=== PATIENT | female | born 1950 | race Caucasian/White ===

== ENCOUNTER 2016-09-27 15:39 | Inpatient (IN) ==
[2016-09-27] MEDS ORDERED: Ipratropium/Albuterol Neb 3 ML IH ONE (15:52)
--- NOTE | 2016-09-27 16:29 | Emergency Department Note ---
Disposition Clinical Impression: UTI (urinary tract infection) Disposition: Admitted As Inpatient Condition: Good Referrals: Monica Chahal, [employer] [Primary Care Provider] - Forms: ED Satisfaction Letter Time of Disposition: 18:17 General Adult HPI - General Chief complaint: ED Shortness of Breath/Dyspnea Stated complaint: SOB/UTI Time Seen by Provider: 09/27/16 15:43 Source: patient, EMS Limitations: no limitations Nursing Notes Reviewed: Yes Vital Signs Reviewed: Yes - History of Present Illness HPI Narrative: Patient diagnosed yesterday with a UTI and bronchitis. She was prescribed Keflex. States that she is too weak to ambulate throughout her house and take care of herself. She states this began today. She denies any shortness of breath while she is laying in bed. Pain Scale: 9 - Related Data Home Medications Medication Instructions Recorded Confirmed Aspirin 81 mg PO DAILY 07/13/16 07/18/16 Biotin 1,000 mcg PO DAILY 07/13/16 07/18/16 Fluticasone Propionate Nasal 50 mcg NS DAILY 07/13/16 07/18/16 [Flonase] HYDROcodone/Acet 5/325 mg [[place] 1 tab PO Q6H PRN 07/13/16 07/18/16 5-325 mg] Ipratropium/Albuterol Neb [Duoneb] 3 ml IH Q6HR PRN 07/13/16 07/18/16 Multivit-Min/Iron Fum/Folic AC 1 tab PO DAILY 07/13/16 07/18/16 [[id number]-Srsqqlad Tablet] Albuterol Sulfate [Ventolin Hfa] 2 puff IH Q4H PRN 07/18/16 07/18/16 Fluticasone/Vilanterol [Breo 1 puff IH QAM 07/18/16 07/18/16 Ellipta 100-25 Mcg INH] Previous Rx's Medication Instructions Recorded Cephalexin [Keflex] 500 mg PO QID #16 capsule 07/20/16 Diltiazem CD (24hr) [Cardizem CD] 240 mg PO DAILY #30 cap.er.24h 07/20/16 Furosemide [Lasix] 20 mg PO DAILY PRN #30 tablet 07/21/16 Cephalexin [Keflex] 500 mg PO QID #40 capsule 09/26/16 Promethazine/Dextromethorphan 5 ml PO Q6H PRN #120 ml 09/26/16 [Promethazine-Dm Syrup] Allergies Allergy/AdvReac Type Severity Reaction Status Date / Time levofloxacin [From Levaquin] Allergy Hives Verified 07/18/16 17:18 Penicillins Allergy Hives Verified 07/18/16 17:18 prednisone Allergy See Verified 09/26/16 11:57 Comments Sulfa (Sulfonamide Allergy Hives Verified 07/18/16 17:18 Antibiotics) Banana AdvReac Severe Throat Verified 07/18/16 17:18 itching egg AdvReac Severe Throat Verified 07/18/16 17:18 swelling nitrofurantoin AdvReac Severe Bruising Verified 07/18/16 17:18 [From Macrobid] on arms Review of Systems: Patient denies a fever. She does report generalized weakness. She also reports being diagnosed with bronchitis and a UTI yesterday. She denies any shortness of breath at this time. She says she has been short of breath when she was at home. She denies any chest pain. She denies sore throat. She denies a headache or blurred vision. She denies any abdominal pain. She denies any nausea vomiting or diarrhea. She denies any blood in her stool or urine. She states yesterday her urine was orange and she denies use of Pyridium. She reports swelling to her lower legs bilaterally. She states she has been taking Lasix for the past 2 weeks for this and that they have significantly decreased. She does state that she is urinating frequently and has urinated on herself. All systems ED: reviewed and negative except as stated. Constitutional: Reports: chills (Today), weakness (Generalized began today). Denies: fever Past Medical History - Past Medical History Medical history: Reports: asthma Surgical history: Reports: angioplasty/stent, hysterectomy Psychiatric history: Reports: no psych history - Social History Smoking Status: Unknown if ever smoked Smokeless Tobacco Status: No Alcohol use: Reports: none Drug use: Reports: none Physical Exam - General Limitations: no limitations General appearance: alert, in no apparent distress - Head Head exam: atraumatic, normocephalic, normal inspection - Eye Eye exam: Present: normal appearance, PERRL, EOMI. Absent: scleral icterus - ENT ENT exam: normal exam, normal oropharynx, mucous membranes moist, normal external ear exam - Neck Neck exam: Present: normal inspection, trachea midline - Chest Chest inspection: Present: normal inspection, symmetric chest wall rise. Absent : tenderness - Respiratory Respiratory exam: Present: wheezes (Slight wheezing bilaterally.), other (No rhonchi or rales.) - Cardiovascular Cardiovascular exam: Present: regular rate, normal rhythm, normal heart sounds - Abdominal Exam Abdominal exam: Present: soft, Non-Tender, normal bowel sounds, other (Exam limited by patient's obesity.). Absent: tenderness, distention, guarding, rebound, rigidity, organomegaly - Extremities Exam Extremities exam: Present: normal capillary refill, pedal edema, other (Edema to lower extremities bilaterally. Extreme pitting.). Absent: joint swelling, calf tenderness - Neurological Exam Neurological exam: Present: alert, oriented X3 - Psychiatric Psychiatric exam: Present: normal affect, normal mood - Skin Skin exam: Present: warm, dry, intact, normal color. Absent: cyanosis Course Course Narrative: The male patient seen in urgent care yesterday and diagnosed with bronchitis and UTI. She was given Keflex. States that today she is just too weak to get up and ambulate. She cannot perform her ADLs. She states her shortness of breath is slightly better. However she has urinated and defecated on herself. Is abnormal for her. She does have bilateral lower extremity edema that she states is significantly better than what it was 2 weeks ago. She has been on Lasix for 2 weeks to treat this. Her urine analysis showed a UTI while she is still here. She has several allergies to medications. She states she can take azithromycin and ceftriaxone. These have been given IV. She is mentating well however cannot perform her ADLs. is at bedside and does not appear to be able to care for patient either. We will admit patient for failure to thrive and inability to perform ADLs associated with the UTI. - Reevaluation(s) Reevaluation #1: Patient reassessed. She is resting comfortably in bed. Eyes are clear at this time. She is no in no respiratory distress. She has no complaints. We will contact hospitalist team for admission due to failure to thrive and inability to do ADLs at home. Time: 17:49 - Consultations Consultation #1: Spoke with Sana OGDEN. She is accepting Pt in stable condition. Time: 17:52 Vital Signs Temperature 98.8 F 09/27/16 15:41 Pulse Rate 118 09/27/16 15:41 Respiratory Rate 18 09/27/16 15:41 Blood Pressure 132/60 09/27/16 15:41 O2 Sat by Pulse Oximetry 92 L 09/27/16 15:41 Temperature 98.8 F 09/27/16 15:41 Pulse Rate 122 09/27/16 17:14 Respiratory Rate 16 09/27/16 17:14 Blood Pressure 131/52 09/27/16 17:14 O2 Sat by Pulse Oximetry 94 L 09/27/16 17:14 Oxygen Delivery Oxygen Delivery Nasal Cannula Medical Decision Making - Lab Data Result diagrams: 09/27/16 17:00 09/27/16 17:00 Lab Results 09/27/16 09/27/16 09/27/16 Range/Units 16:29 17:00 17:00 WBC 10.7 (4.3-11.1) K/mcL RBC 4.96 (3.82-4.97) M/mcL Hgb 15.1 (11.5-15.4) g/dL Hct 44.0 (35.3-44.9) % MCV 88.7 (83.0-100.0) fL MCH 30.4 (28.0-33.3) pg MCHC 34.3 (31.6-35.5) g/dL RDW 13.4 (11.5-14.5) % Plt Count 189 (140-400) K/mcL MPV 9.5 (9.4-12.4) fL Immature Gran % 0.8 (0-4) % Seg Neutrophils % 66.9 % Lymphocytes % 24.2 % Monocytes % 7.7 % Eosinophils % 0.1 % Basophils % 0.3 % Neutrophils # 7.2 (1.6-8.9) K/mcL Lymphocytes # 2.6 (0.6-4.6) K/mcL Monocytes # 0.8 (0.0-1.3) K/mcL Eosinophils # 0.0 (0.0-0.6) K/mcL Basophils # 0.0 (0.0-0.2) K/mcL Sodium 138 (136-145) mEq/L Potassium 3.8 (3.5-4.5) mEq/L Chloride 104 (98-109) mEq/L Carbon Dioxide 22 (19-29) mEq/L BUN 11 (7-20) mg/dL Creatinine 0.75 (0.57-1.11) mg/dL Est GFR ( Amer) > 60 (> 60) Est GFR (Non-Af Amer) > 60 (> 60) BUN/Creatinine Ratio 15 (6-26) Glucose 124 H (70-99) mg/dL Calculated Osmolality 287 (280-300) Lactic Acid (0.5-2.2) mmol/L Calcium 9.4 (8.6-10.8) mg/dL Total Bilirubin 1.1 (0.2-1.2) mg/dL Direct Bilirubin 0.5 (0.0-0.5) mg/dL Indirect Bilirubin 0.6 (0.0-1.2) mg/dL AST 37 H (5-34) Units/L ALT 76 H (0-55) Units/L Alkaline Phosphatase 82 (38-126) Units/L B-Natriuretic Peptide (0-100) pg/mL Serum Total Protein 7.3 (6.0-8.3) g/dL Albumin 3.5 (3.5-5.0) g/dL Globulin 3.8 H (2.4-3.5) g/dL Albumin/Globulin Ratio 0.9 L (1.1-2.2) Urine Color Worth A (Yellow) Urine Clarity Turbid A (Clear) Urine pH 6.0 (5.0-8.0) pH Units Ur Specific [place] 1.030 H (1.010-1.025) Urine Protein 100 H (Neg-Trace) mg/dL Urine Glucose (UA) Normal (Normal) mg/dL Urine Ketones Trace H (Negative) mg/dL Urine Blood Large H (Negative) Urine Nitrite Positive A (Negative) Urine Bilirubin Small H (Negative) Urine Urobilinogen Normal (Normal) mg/dL Ur Leukocyte Esterase Large H (Negative) Urine Microscopic RBC TNTC H (0-3) per hpf Urine Microscopic WBC TNTC H (0-3) per hpf Ur Squamous Epith Cells Moderate H (None-Few) per lpf Urine Bacteria Many H (None-Few) per hpf Ur Culture Indicated? YES A (NO) 09/27/16 09/27/16 Range/Units 17:00 17:00 WBC (4.3-11.1) K/mcL RBC (3.82-4.97) M/mcL Hgb (11.5-15.4) g/dL Hct (35.3-44.9) % MCV (83.0-100.0) fL MCH (28.0-33.3) pg MCHC (31.6-35.5) g/dL RDW (11.5-14.5) % Plt Count (140-400) K/mcL MPV (9.4-12.4) fL Immature Gran % (0-4) % Seg Neutrophils % % Lymphocytes % % Monocytes % % Eosinophils % % Basophils % % Neutrophils # (1.6-8.9) K/mcL Lymphocytes # (0.6-4.6) K/mcL Monocytes # (0.0-1.3) K/mcL Eosinophils # (0.0-0.6) K/mcL Basophils # (0.0-0.2) K/mcL Sodium (136-145) mEq/L Potassium (3.5-4.5) mEq/L Chloride (98-109) mEq/L Carbon Dioxide (19-29) mEq/L BUN (7-20) mg/dL Creatinine (0.57-1.11) mg/dL Est GFR ( Amer) (> 60) Est GFR (Non-Af Amer) (> 60) BUN/Creatinine Ratio (6-26) Glucose (70-99) mg/dL Calculated Osmolality (280-300) Lactic Acid 1.6 (0.5-2.2) mmol/L Calcium (8.6-10.8) mg/dL Total Bilirubin (0.2-1.2) mg/dL Direct Bilirubin (0.0-0.5) mg/dL Indirect Bilirubin (0.0-1.2) mg/dL AST (5-34) Units/L ALT (0-55) Units/L Alkaline Phosphatase (38-126) Units/L B-Natriuretic Peptide 42 (0-100) pg/mL Serum Total Protein (6.0-8.3) g/dL Albumin (3.5-5.0) g/dL Globulin (2.4-3.5) g/dL Albumin/Globulin Ratio (1.1-2.2) Urine Color (Yellow) Urine Clarity (Clear) Urine pH (5.0-8.0) pH Units Ur Specific [place] (1.010-1.025) Urine Protein (Neg-Trace) mg/dL Urine Glucose (UA) (Normal) mg/dL Urine Ketones (Negative) mg/dL Urine Blood (Negative) Urine Nitrite (Negative) Urine Bilirubin (Negative) Urine Urobilinogen (Normal) mg/dL Ur Leukocyte Esterase (Negative) Urine Microscopic RBC (0-3) per hpf Urine Microscopic WBC (0-3) per hpf Ur Squamous Epith Cells (None-Few) per lpf Urine Bacteria (None-Few) per hpf Ur Culture Indicated? (NO) - EKG Data EKG #1 EKG attestation: Yes I reviewed and interpreted this EKG. EKG results narrative: Sinus tachycardia at a rate of 104. QRS duration is 84. QT is 329. No signs of acute ischemia. No significant changes from previous EKG dated 07/18/2016.
[2016-09-27 16:41] LABS: Bilirubin,Urine Small (Negative); Blood,Urine Large (Negative); Clarity,Urine Turbid (Clear); Color,Urine Orange (Yellow); Glucose,Urine (UA) Normal (Normal); Ketones,Urine Trace mg/dL (Negative); Leukocyte Esterase,Urine Large (Negative); Nitrite,Urine Positive (Negative); Protein,Urine 100 mg/dL (Neg-Trace); Urobilinogen,Urine Normal (Normal)
[2016-09-27 16:56] LABS: Bacteria,Urine Many per hpf (None-Few); RBC,Urine TNTC per hpf (0-3); Squamous Epithelial Cell,Urine Moderate per lpf (None-Few); WBC,Urine TNTC per hpf (0-3)
--- NOTE | 2016-09-27 16:59 | Emergency Department Note ---
Disposition Clinical Impression: UTI (urinary tract infection) Disposition: Admitted As Inpatient Condition: Good General Adult HPI - General Chief complaint: ED Shortness of Breath/Dyspnea Stated complaint: SOB/UTI Time Seen by Provider: 09/27/16 15:43 Source: patient, EMS Limitations: no limitations - History of Present Illness Pain Scale: 9 - Related Data Home Medications Medication Instructions Recorded Confirmed Aspirin 81 mg PO DAILY 07/13/16 09/27/16 Biotin 1,000 mcg PO DAILY 07/13/16 09/27/16 Fluticasone Propionate Nasal 50 mcg NS HS 07/13/16 09/27/16 [Flonase] HYDROcodone/Acet 5/325 mg [[place] 1 tab PO Q6H PRN 07/13/16 09/27/16 5-325 mg] Multivit-Min/Iron Fum/Folic AC 1 tab PO DAILY 07/13/16 09/27/16 [[id number]-[id number]-[id number] Tablet] Albuterol Sulfate [Ventolin Hfa] 2 puff IH Q4H PRN 07/18/16 09/27/16 Fluticasone/Vilanterol [Breo 1 puff IH QAM 07/18/16 09/27/16 Ellipta 100-25 Mcg INH] Furosemide [Lasix] 20 mg PO BID 09/27/16 09/27/16 Albuterol Neb [AccuNeb] 0.63 mg IH Q6H PRN 09/28/16 09/28/16 Cetirizine HCl [Cetirizine HCl] 10 mg PO DAILY 09/28/16 09/28/16 Potassium Chloride [K-Tab ER] 20 meq PO DAILY 09/28/16 09/28/16 Previous Rx's Medication Instructions Recorded Diltiazem CD (24hr) [Cardizem CD] 240 mg PO DAILY #30 cap.er.24h 07/20/16 Promethazine/Dextromethorphan 5 ml PO Q6H PRN #120 ml 09/26/16 [Promethazine-Dm Syrup] Allergies Allergy/AdvReac Type Severity Reaction Status Date / Time levofloxacin [From Levaquin] Allergy Hives Verified 09/28/16 08:50 Penicillins Allergy Blister Verified 09/28/16 08:50 prednisone Allergy See Verified 09/28/16 08:50 Comments Sulfa (Sulfonamide Allergy Hives Verified 09/28/16 08:50 Antibiotics) Banana AdvReac Severe Blister Verified 09/28/16 08:50 egg AdvReac Severe Throat Verified 09/28/16 08:50 swelling nitrofurantoin AdvReac Severe Bruising Verified 09/28/16 08:50 [From Macrobid] on arms Past Medical History - Past Medical History Medical history: Reports: asthma Surgical history: Reports: angioplasty/stent, hysterectomy Psychiatric history: Reports: no psych history - Social History Smoking Status: Unknown if ever smoked Smokeless Tobacco Status: No Alcohol use: Reports: none Drug use: Reports: none Physical Exam - General Limitations: no limitations General appearance: alert, in no apparent distress Course - Reevaluation(s) Reevaluation #1: I saw patient with the resident, Dr. Caceres. Patient presents with generalized weakness. She was diagnosed with urinary tract infection and bronchitis yesterday. She was started on Keflex. Despite that she is getting worse. Now she is too weak to take care of herself at home. She is urinating on herself. She also defecated on herself after coughing so hard. We will check labs but it sounds like the patient is going to need to be admitted because of failure of outpatient treatment and overall worsening symptoms and inability to care for self at home. Time: 16:59 Vital Signs Temperature 98.8 F 09/27/16 15:41 Pulse Rate 118 09/27/16 15:41 Respiratory Rate 18 09/27/16 15:41 Blood Pressure 132/60 09/27/16 15:41 O2 Sat by Pulse Oximetry 92 L 09/27/16 15:41 Temperature 97.4 F L 09/28/16 15:13 Pulse Rate 85 09/28/16 15:13 Respiratory Rate 15 09/28/16 15:13 Blood Pressure 134/78 09/28/16 15:13 O2 Sat by Pulse Oximetry 93 L 09/28/16 15:13 Oxygen Delivery Oxygen Delivery Nasal Cannula Medical Decision Making - Lab Data Result diagrams: 09/28/16 01:09 09/28/16 01:09 Lab Results 09/27/16 09/27/16 09/27/16 Range/Units 16:29 17:00 17:00 WBC 10.7 (4.3-11.1) K/mcL RBC 4.96 (3.82-4.97) M/mcL Hgb 15.1 (11.5-15.4) g/dL Hct 44.0 (35.3-44.9) % MCV 88.7 (83.0-100.0) fL MCH 30.4 (28.0-33.3) pg MCHC 34.3 (31.6-35.5) g/dL RDW 13.4 (11.5-14.5) % Plt Count 189 (140-400) K/mcL MPV 9.5 (9.4-12.4) fL Immature Gran % 0.8 (0-4) % Seg Neutrophils % 66.9 % Lymphocytes % 24.2 % Monocytes % 7.7 % Eosinophils % 0.1 % Basophils % 0.3 % Neutrophils # 7.2 (1.6-8.9) K/mcL Lymphocytes # 2.6 (0.6-4.6) K/mcL Monocytes # 0.8 (0.0-1.3) K/mcL Eosinophils # 0.0 (0.0-0.6) K/mcL Basophils # 0.0 (0.0-0.2) K/mcL Sodium 138 (136-145) mEq/L Potassium 3.8 (3.5-4.5) mEq/L Chloride 104 (98-109) mEq/L Carbon Dioxide 22 (19-29) mEq/L BUN 11 (7-20) mg/dL Creatinine 0.75 (0.57-1.11) mg/dL Est GFR ( Amer) > 60 (> 60) Est GFR (Non-Af Amer) > 60 (> 60) BUN/Creatinine Ratio 15 (6-26) Glucose 124 H (70-99) mg/dL Calculated Osmolality 287 (280-300) Lactic Acid (0.5-2.2) mmol/L Calcium 9.4 (8.6-10.8) mg/dL Total Bilirubin 1.1 (0.2-1.2) mg/dL Direct Bilirubin 0.5 (0.0-0.5) mg/dL Indirect Bilirubin 0.6 (0.0-1.2) mg/dL AST 37 H (5-34) Units/L ALT 76 H (0-55) Units/L Alkaline Phosphatase 82 (38-126) Units/L B-Natriuretic Peptide (0-100) pg/mL Serum Total Protein 7.3 (6.0-8.3) g/dL Albumin 3.5 (3.5-5.0) g/dL Globulin 3.8 H (2.4-3.5) g/dL Albumin/Globulin Ratio 0.9 L (1.1-2.2) Urine Color [place] A (Yellow) Urine Clarity Turbid A (Clear) Urine pH 6.0 (5.0-8.0) pH Units Ur Specific [place] 1.030 H (1.010-1.025) Urine Protein 100 H (Neg-Trace) mg/dL Urine Glucose (UA) Normal (Normal) mg/dL Urine Ketones Trace H (Negative) mg/dL Urine Blood Large H (Negative) Urine Nitrite Positive A (Negative) Urine Bilirubin Small H (Negative) Urine Urobilinogen Normal (Normal) mg/dL Ur Leukocyte Esterase Large H (Negative) Urine Microscopic RBC TNTC H (0-3) per hpf Urine Microscopic WBC TNTC H (0-3) per hpf Ur Squamous Epith Cells Moderate H (None-Few) per lpf Urine Bacteria Many H (None-Few) per hpf Ur Culture Indicated? YES A (NO) 09/27/16 09/27/16 Range/Units 17:00 17:00 WBC (4.3-11.1) K/mcL RBC (3.82-4.97) M/mcL Hgb (11.5-15.4) g/dL Hct (35.3-44.9) % MCV (83.0-100.0) fL MCH (28.0-33.3) pg MCHC (31.6-35.5) g/dL RDW (11.5-14.5) % Plt Count (140-400) K/mcL MPV (9.4-12.4) fL Immature Gran % (0-4) % Seg Neutrophils % % Lymphocytes % % Monocytes % % Eosinophils % % Basophils % % Neutrophils # (1.6-8.9) K/mcL Lymphocytes # (0.6-4.6) K/mcL Monocytes # (0.0-1.3) K/mcL Eosinophils # (0.0-0.6) K/mcL Basophils # (0.0-0.2) K/mcL Sodium (136-145) mEq/L Potassium (3.5-4.5) mEq/L Chloride (98-109) mEq/L Carbon Dioxide (19-29) mEq/L BUN (7-20) mg/dL Creatinine (0.57-1.11) mg/dL Est GFR ( Amer) (> 60) Est GFR (Non-Af Amer) (> 60) BUN/Creatinine Ratio (6-26) Glucose (70-99) mg/dL Calculated Osmolality (280-300) Lactic Acid 1.6 (0.5-2.2) mmol/L Calcium (8.6-10.8) mg/dL Total Bilirubin (0.2-1.2) mg/dL Direct Bilirubin (0.0-0.5) mg/dL Indirect Bilirubin (0.0-1.2) mg/dL AST (5-34) Units/L ALT (0-55) Units/L Alkaline Phosphatase (38-126) Units/L B-Natriuretic Peptide 42 (0-100) pg/mL Serum Total Protein (6.0-8.3) g/dL Albumin (3.5-5.0) g/dL Globulin (2.4-3.5) g/dL Albumin/Globulin Ratio (1.1-2.2) Urine Color (Yellow) Urine Clarity (Clear) Urine pH (5.0-8.0) pH Units Ur Specific [place] (1.010-1.025) Urine Protein (Neg-Trace) mg/dL Urine Glucose (UA) (Normal) mg/dL Urine Ketones (Negative) mg/dL Urine Blood (Negative) Urine Nitrite (Negative) Urine Bilirubin (Negative) Urine Urobilinogen (Normal) mg/dL Ur Leukocyte Esterase (Negative) Urine Microscopic RBC (0-3) per hpf Urine Microscopic WBC (0-3) per hpf Ur Squamous Epith Cells (None-Few) per lpf Urine Bacteria (None-Few) per hpf Ur Culture Indicated? (NO) Attestation Statement - Attestation Attestation: I, Dr. Villareal, examined this patient [id number] and my medical decision- making was reviewed with Dr. Caceres, Resident Physician. I agree with the documented findings, disposition and treatment plan as described except to the extent set forth below. Please see my progress notes for details.
[2016-09-27 17:12] LABS: Basophils % 0.3 %; Eosinophils % 0.1 %; Hemoglobin 15.1 g/dL (11.5-15.4); Immature Granulocytes % 0.8 % (0-4); Lymphocytes # 2.6 K/mcL (0.6-4.6); Lymphocytes % 24.2 %; Mean Corpuscular HGB Conc 34.3 g/dL (31.6-35.5); Mean Corpuscular Hemoglobin 30.4 pg (28.0-33.3); Mean Corpuscular Volume 88.7 fL (83.0-100.0); Mean Platelet Volume 9.5 fL (9.4-12.4); Monocytes # 0.8 K/mcL (0.0-1.3); Monocytes % 7.7 %; Neutrophils # 7.2 K/mcL (1.6-8.9); Platelet Count 189 K/mcL (140-400); Red Blood Count 4.96 M/mcL (3.82-4.97); Red Cell Distribution Width 13.4 % (11.5-14.5); Segmented Neutrophils % 66.9 %
[2016-09-27 17:24] LABS: Alanine Aminotransferase 76 Units/L (0-55); Albumin 3.5 g/dL (3.5-5.0); Albumin/Globulin Ratio 0.9 (1.1-2.2); Alkaline Phosphatase 82 Units/L (38-126); Aspartate Amino Transferase 37 Units/L (5-34); BUN/Creatinine Ratio 15 (6-26); Bilirubin,Direct 0.5 mg/dL (0.0-0.5); Bilirubin,Indirect 0.6 mg/dL (0.0-1.2); Bilirubin,Total 1.1 mg/dL (0.2-1.2); Blood Urea Nitrogen 11 mg/dL (7-20); Calcium 9.4 mg/dL (8.6-10.8); Carbon Dioxide 22 mEq/L (19-29); Chloride 104 mEq/L (98-109); Globulin 3.8 g/dL (2.4-3.5); Glucose 124 mg/dL (70-99); Osmolality,Calculated 287 (280-300); Potassium 3.8 mEq/L (3.5-4.5); Sodium 138 mEq/L (136-145); Total Protein 7.3 g/dL (6.0-8.3); eGFR For African Americans > 60 (> 60); eGFR For Non-African Americans > 60 (> 60)
[2016-09-27] MEDS ORDERED: Azithromycin 500 MG in D5% in Water 250 ML IVPB ONE (17:25)
[2016-09-27] MEDS ORDERED: NON-FORMULARY MEDICATION 1 EACH EACH (Promethazine/Dextromethorphan [Promethazine-Dm Syrup PO PRN (21:46)
[2016-09-27] MEDS ORDERED: Naloxone 0.4 MG/ML INJ IVP PRN (21:49)
[2016-09-27] MEDS ORDERED: Acetaminophen 325 MG TABLET PO PRN (21:49)
[2016-09-27] MEDS ORDERED: *HR* OxyCODONE Immed Rel 5 MG TABLET PO PRN (21:49)
--- NOTE | 2016-09-27 21:56 | Internal Med History&Physical ---
Date of Encounter: 09/27/16 Time of Encounter: 20:00 Assessment and Plan (1) Acute on chronic diastolic heart failure Current visit: Yes Status: Acute Review of her echocardiogram from last June shows normal ejection fraction and mild diastolic dysfunction. I will treat the patient with IV Lasix. Daily weights. Fluid restriction. Trend troponin to rule out ACS. (2) UTI (urinary tract infection) Current visit: Yes Status: Acute We will treat the patient with cefepime and follow-up urine culture and sensitivities and adjust antibiotic therapy accordingly. Upon review of her urine culture is sore the last 2 years she has had multiple positive urine cultures growing Escherichia coli which by and large is sensitive to ceftriaxone however and the last culture was intermediate to ceftriaxone and sensitive to cefepime. Qualifiers: Urinary tract infection type: acute cystitis Hematuria presence: without hematuria Qualified Code(s): N30.00 - Acute cystitis without hematuria (3) Acute bronchitis Current visit: No Status: Acute She will be covered with cefepime. Qualifiers: Bronchitis organism: other organism Qualified Code(s): J20.8 - Acute bronchitis due to other specified organisms (4) Acute exacerbation of COPD with asthma Current visit: No Status: Acute We will use DuoNeb and a short course of Solu-Medrol. She has a listed allergy to prednisone however it is not a true allergy but causes fluid retention which is a common side effect and will be prevented by treatment with IV Lasix. (5) DVT prophylaxis Current visit: No Status: Acute Subcutaneous Lovenox (6) Morbid obesity with BMI of 50.0-59.9, adult Current visit: No Status: Acute Bariatric bed. Turning regimen. Outpatient weight loss regimen. Internal Medicine - H&P: HPI Chief complaint: Generalized weakness Admitted From: Emergency Dept Plans for Post Hospital Care: Home History of present illness: Ms. Golden is a 66 year old female with multiple medical comorbidities including asthma, COPD, morbid obesity, diastolic heart failure who presented to the hospital for generalized weakness and multiple associated complaints. She has been severely weak for the last 5 days. She reports dysuria for the last 3 days she has had an antibiotic course initiated outpatient however her symptoms did not improve.. She reports associated chills, no fevers. She has been having more shortness of breath cough and sputum production. She also reports significant lower extremity swelling and inability to ambulate and associated generalized weakness. A temporary review of systems was otherwise negative Family history negative for premature coronary artery disease in both parents Past Med Surg Social Fam HX - Past Medical History Medical history: asthma, COPD, hypertension Psychiatric history: no psych history - Past Surgical History Surgical History: angioplasty/stent, hysterectomy - Social History Smoking Status: Never smoker Smokeless Tobacco Status: No Alcohol use: none Drug use: none - Family History Brother Living Status: Still Living Hx Family Cardiac Disorders: Yes (HTN) Hx Family Endocrine Disorder: Yes (Diabetes) Mother Living Status: Hx Family Cardiac Disorders: Yes (HTN) Hx Family Endocrine Disorder: Yes (Diabetes) Father Living Status: Hx Family Cardiac Disorders: Yes (CABG x3 HTN diabetes) Hx Family Respiratory Disorders: No Hx Family Cancer: No Hx Family GI Disorders: No Hx Family Endocrine Disorder: Yes Hx Family Neuromuscular Disorders: No Hx Family Neurologic Disorders: No Hx Family HEENT Disorders: No Hx Family Autoimmune Disorders: No Internal Medicine - H&P: Meds Aspirin 81 mg PO DAILY 07/13/16 [History] Biotin 1,000 mcg PO DAILY 07/13/16 [History] Fluticasone Propionate Nasal [Flonase] 50 mcg NS HS 07/13/16 [History] HYDROcodone/Acet 5/325 mg [Clark 5-325 mg] 1 tab PO Q6H PRN 07/13/16 [History] Ipratropium/Albuterol Neb [Duoneb] 3 ml IH Q6HR PRN 07/13/16 [History] Multivit-Min/Iron Fum/Folic AC [Jmoon-Ceaknoi-Hzwusshq Tablet] 1 tab PO DAILY [History] Albuterol Sulfate [Ventolin Hfa] 2 puff IH Q4H PRN 07/18/16 [History] Fluticasone/Vilanterol [Breo Ellipta 100-25 Mcg INH] 1 puff IH QAM 07/18/16 [ History] Diltiazem CD (24hr) [Cardizem CD] 240 mg PO DAILY #30 cap.er.24h 07/20/16 [Rx] Promethazine/Dextromethorphan [Promethazine-Dm Syrup] 5 ml PO Q6H PRN #120 ml [Rx] Furosemide [Lasix] 20 mg PO BID 09/27/16 [History] Allergies levofloxacin [From Levaquin] Allergy (Verified 07/18/16 17:18) Hives Penicillins Allergy (Verified 07/18/16 17:18) Hives prednisone Allergy (Verified 09/26/16 11:57) See Comments all over swelling Sulfa (Sulfonamide Antibiotics) Allergy (Verified 07/18/16 17:18) Hives Banana Adverse Reaction (Severe, Verified 07/18/16 17:18) Throat itching egg Adverse Reaction (Severe, Verified 07/18/16 17:18) Throat swelling nitrofurantoin [From Macrobid] Adverse Reaction (Severe, Verified 07/18/16 17:18 ) Bruising on arms All Systems PM: A 10-system review of systems was performed and is negative for pertinent findings except as documented above in the HPI. - Constitutional Vitals: Temp Pulse Resp BP Pulse Ox 99.2 F 112 16 116/66 95 09/27/16 20:48 09/27/16 20:48 09/27/16 20:48 09/27/16 20:48 09/27/16 20:48 - Eye Eye exam: Present: PERRL, conjuntiva pink, sclera anicteric Pupils: Present: PERRL - Respiratory Respiratory exam: Present: CTAB, wheezes. Absent: accessory muscle use, rales, rhonchi - Cardiovascular Cardiovascular exam: Present: RRR, +S1, +S2. Absent: diastolic murmur, gallop, rubs, systolic murmur - GI/Abdominal GI/Abdominal exam: Present: normal bowel sounds, soft, no peritoneal signs. Absent: distended, tenderness - Extremities Exam Extremities exam: Present: pedal edema, warm, radial pulses palpable and symetrical. Absent: calf tenderness, cyanotic - Skin Skin exam: Present: dry, intact Internal Med - H&P Results - Labs CBC & Chem 7: 09/27/16 17:00 09/27/16 17:00
[2016-09-27] MEDS: Ondansetron 4 MG/2 ML VIAL IVP PRN (22:15)
[2016-09-27] MEDS: Furosemide 40 MG/4 ML VIAL IVP SCH (22:15)
[2016-09-27] MEDS: Ipratropium/Albuterol Neb 3 ML IH SCH (23:01)
[2016-09-27] MEDS: Cefepime HCl 1,000 MG in D5% in Water (Mini-Bag+) 100 ML IVPB SCH (23:35)
[2016-09-28] MEDS: *HR* HYDROcodone/Acet 5/325 mg TABLET PO PRN ×2 (01:25→22:27)
[2016-09-28 01:38] LABS: Basophils % 0.3 %; Hematocrit 39.8 % (35.3-44.9); Hemoglobin 13.6 g/dL (11.5-15.4); Immature Granulocytes % 0.8 % (0-4); Mean Corpuscular HGB Conc 34.2 g/dL (31.6-35.5); Mean Corpuscular Hemoglobin 30.2 pg (28.0-33.3); Mean Corpuscular Volume 88.2 fL (83.0-100.0); Mean Platelet Volume 9.7 fL (9.4-12.4); Monocytes # 0.7 K/mcL (0.0-1.3); Monocytes % 8.8 %; Neutrophils # 6.2 K/mcL (1.6-8.9); Platelet Count 178 K/mcL (140-400); Red Blood Count 4.51 M/mcL (3.82-4.97); Red Cell Distribution Width 13.2 % (11.5-14.5); Segmented Neutrophils % 78.1 %
[2016-09-28 01:53] LABS: BUN/Creatinine Ratio 17 (6-26); Blood Urea Nitrogen 12 mg/dL (7-20); Calcium 8.5 mg/dL (8.6-10.8); Carbon Dioxide 26 mEq/L (19-29); Chloride 102 mEq/L (98-109); Glucose 152 mg/dL (70-99); Magnesium 1.7 mg/dL (1.6-2.6); Osmolality,Calculated 289 (280-300); Potassium 3.3 mEq/L (3.5-4.5); Sodium 138 mEq/L (136-145); eGFR For African Americans > 60 (> 60); eGFR For Non-African Americans > 60 (> 60)
[2016-09-28] MEDS: Ipratropium/Albuterol Neb 3 ML IH SCH ×4 (03:53→22:12)
[2016-09-28] MEDS: MethylPREDNISolone 40 MG/ML VIAL IVP SCH ×2 (06:00→18:01)
[2016-09-28] MEDS: Furosemide 40 MG/4 ML VIAL IVP SCH ×3 (06:00→22:16)
[2016-09-28] MEDS: *HR* Enoxaparin 40 MG/0.4 ML SYRINGE SQ SCH (06:07)
[2016-09-28] MEDS: Aspirin 81 MG TAB.CHEW PO SCH (07:56)
[2016-09-28] MEDS: Diltiazem CD (24hr) 240 MG CAPSULE PO SCH (07:56)
[2016-09-28] MEDS ORDERED: Potassium Chloride Elixir 20 MEQ/15 ML UDC PO ONE ×2 (09:22→15:00)
[2016-09-28] MEDS: Cefepime HCl 1,000 MG in D5% in Water (Mini-Bag+) 100 ML IVPB SCH ×2 (10:28→22:18)
--- NOTE | 2016-09-28 12:04 | Internal Med Progress Note ---
<Rene Guido - Last Filed: 09/28/16 12:18> Date of Encounter: 09/28/16 Time of Encounter: 12:18 - Assessment and plan (1) Acute on chronic diastolic heart failure Current Visit: Yes Status: Acute Assessment and plan: Etiology of exacerbation unclear. possibly non compliance. She had recent echo on 07/18/16 that revealed Ef of 60% with mild diastolic dysfunction. She has a preserved EF. Will continue diuresis. She is net negative 1500 CC's of fluid since admission. Strict I's and Os and fluid restriction. I did consider other etiologies for edema. May consider Cirrhosis with elevated LFTs. However she has normal platelets so I think this is less likely. She had recent normal TSH. Will check Pr/CR ratio for possible nephrotic syndrome. May also be steroid induced as she states she is often on steroids. (2) Acute exacerbation of COPD with asthma Current Visit: Yes Status: Acute Assessment and plan: No history of tobacco abuse. However the patient has a history of Asthma since she was an infant. Continue Cefepime, steroids and Bronchodialaters. O2 as needed. she will need to resume home inhalers however she is on frequent duonebs and IV steroids at this time. (3) UTI (urinary tract infection) Current Visit: Yes Status: Acute Assessment and plan: continue current antibiotics. Follow up with cultures. Qualifiers: Urinary tract infection type: acute cystitis Hematuria presence: without hematuria Qualified Code(s): N30.00 - Acute cystitis without hematuria (4) Acute bronchitis Current Visit: Yes Status: Acute Assessment and plan: as stated above. (5) Generalized weakness Current Visit: Yes Status: Acute Assessment and plan: likely secondary to illness. No myalgias. She was able to get to her chair this AM without difficulty. improved. (6) Anasarca Current Visit: Yes Status: Acute Assessment and plan: as stated above. continue diuresis and fluid restiction (7) Morbid obesity Current Visit: Yes Status: Acute Assessment and plan: strongly advise weight loss (8) Elevated transaminase level Current Visit: Yes Status: Acute Assessment and plan: mildly elevated. etiology unclear. will screen for hepatitis will follow LFTs. (9) Coronary artery disease Current Visit: Yes Status: Acute Assessment and plan: patient had severe one vessel disease and had JOSELYN placed to OMII in 2013. not currently on plavix. However she is well over 1 year. Continue ASA. Should also be on statin. Will trend LFTs and if normalize we will place her on statin if she is agreeable. (10) DVT prophylaxis Current Visit: Yes Status: Acute Assessment and plan: continue SQ lovenox. - Subjective Interval history: Today the patient states that she is feeling much better. She states she is breathing easier and was able to get her self out of bed this morning. She denies any chest pain or discomfort. she denies any pain or discomfort at this time. She dose complain of chronic edema. she has no further complaints or concerns at this time. - Constitutional Vitals: Temp Pulse Resp BP Pulse Ox 97.7 F 100 16 145/80 94 L 09/28/16 11:35 09/28/16 11:35 09/28/16 11:35 09/28/16 11:35 09/28/16 11:35 General appearance: Present: A&O X 3, morbidly obese, pleasant, no acute distress - Head Head exam: Present: atraumatic, normal inspection, normocephalic - Eye Eye exam: Present: PERRL, conjuntiva pink, sclera anicteric Pupils: Present: PERRL - ENT ENT exam: Present: mucous membranes moist, normal oropharynx - Neck Neck exam general surgery: Present: supple, trachea midline. Absent: lymphadenopathy Additional comments: obese - Respiratory Additional comments: She has a normal effort of breathing and no difficulty conversing . However she dose have audible rhonchi without the aide of stethasope. With ausculation she has course diffuse rhonchi with bilateral crackles at the bases of the lungs - Cardiovascular Cardiovascular exam: Present: RRR, +S1, +S2. Absent: diastolic murmur, gallop, rubs, systolic murmur - GI/Abdominal GI/Abdominal exam: Present: normal bowel sounds, soft, no peritoneal signs. Absent: distended, tenderness Additional comments: obese - Extremities Exam Extremities exam: Present: warm, radial pulses palpable and symetrical. Absent : calf tenderness, cyanotic Additional comments: Anasarca. 2+ edema to the abdomen - Skin Skin exam: Present: dry, intact Internal Medicine: Result - Labs CBC & Chem 7: 09/28/16 01:09 09/28/16 01:09 Labs: Short CBC 09/28/16 Range/Units 01:09 WBC 8.0 (4.3-11.1) K/mcL Hgb 13.6 D (11.5-15.4) g/dL Hct 39.8 (35.3-44.9) % Plt Count 178 (140-400) K/mcL Neutrophils # 6.2 (1.6-8.9) K/mcL BMP 09/28/16 01:09 Sodium 138 Potassium 3.3 L Chloride 102 Carbon Dioxide 26 BUN 12 Creatinine 0.70 Glucose 152 H Calcium 8.5 L Cardiac Enzymes 09/28/16 09/28/16 Range/Units 01:09 07:14 Troponin I 0.03 0.03 (0-0.03) ng/mL Consult Discharge Plan - Plan Referrals: Monica Chahal, [employer] [Primary Care Provider] - <Chet Urena - Last Filed: 09/28/16 14:07> Date of Encounter: 09/28/16 - Constitutional Vitals: Temp Pulse Resp BP Pulse Ox 97.7 F 100 16 145/80 94 L 09/28/16 11:35 09/28/16 13:22 09/28/16 13:22 09/28/16 13:22 09/28/16 13:22 Internal Medicine: Result - Labs CBC & Chem 7: 09/28/16 01:09 09/28/16 01:09 Labs: Short CBC 09/28/16 Range/Units 01:09 WBC 8.0 (4.3-11.1) K/mcL Hgb 13.6 D (11.5-15.4) g/dL Hct 39.8 (35.3-44.9) % Plt Count 178 (140-400) K/mcL Neutrophils # 6.2 (1.6-8.9) K/mcL BMP 09/28/16 01:09 Sodium 138 Potassium 3.3 L Chloride 102 Carbon Dioxide 26 BUN 12 Creatinine 0.70 Glucose 152 H Calcium 8.5 L Cardiac Enzymes 09/28/16 09/28/16 Range/Units 01:09 07:14 Troponin I 0.03 0.03 (0-0.03) ng/mL - Attending Attestation Continue Lasix and continue cefepime for now I examined this patient and my medical decision-making was reviewed with the [employer]/PA/Advanced Practice Nurse/Resident Physician. I agree with the documented findings, disposition and treatment plan as described except to the extent set forth below.
--- NOTE | 2016-09-28 19:07 | Electrocardiograph Report ---
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
[2016-09-28 21:23] LABS: Protein/Creatinine Ratio,Urine 0.48 mg/mg (0-0.20)
[2016-09-29] MEDS: Ipratropium/Albuterol Neb 3 ML IH SCH ×4 (03:55→20:34)
[2016-09-29 04:40] LABS: Hemoglobin 13.7 g/dL (11.5-15.4); Mean Corpuscular HGB Conc 34.3 g/dL (31.6-35.5); Mean Corpuscular Hemoglobin 29.6 pg (28.0-33.3); Mean Corpuscular Volume 86.4 fL (83.0-100.0); Mean Platelet Volume 10.2 fL (9.4-12.4); Platelet Count 193 K/mcL (140-400); Red Blood Count 4.63 M/mcL (3.82-4.97); Red Cell Distribution Width 12.7 % (11.5-14.5)
[2016-09-29] MEDS: Furosemide 40 MG/4 ML VIAL IVP SCH ×3 (05:13→21:49)
[2016-09-29] MEDS: MethylPREDNISolone 40 MG/ML VIAL IVP SCH ×2 (05:13→16:52)
[2016-09-29] MEDS: *HR* Enoxaparin 40 MG/0.4 ML SYRINGE SQ SCH (05:13)
[2016-09-29 05:40] LABS: BUN/Creatinine Ratio 24 (6-26); Blood Urea Nitrogen 20 mg/dL (7-20); Carbon Dioxide 25 mEq/L (19-29); Chloride 99 mEq/L (98-109); Glucose 320 mg/dL (70-99); Osmolality,Calculated 301 (280-300); Potassium 3.6 mEq/L (3.5-4.5); Sodium 138 mEq/L (136-145); eGFR For African Americans > 60 (> 60); eGFR For Non-African Americans > 60 (> 60)
[2016-09-29] MEDS ORDERED: *HR* Dextrose 50 % in Water (Syg) 50 ML SYRINGE IVP PRN (06:34)
[2016-09-29] MEDS ORDERED: D5% in Water 1,000 ML IV PRN (06:34)
[2016-09-29] MEDS ORDERED: Dextrose Gel 15 GM PO PRN ×2 (06:34)
--- NOTE | 2016-09-29 06:37 | Internal Med Progress Note ---
<Rene Guido - Last Filed: 09/29/16 08:57> Date of Encounter: 09/29/16 Time of Encounter: 06:35 - Assessment and plan (1) Acute on chronic diastolic heart failure Current Visit: Yes Status: Acute Assessment and plan: Etiology of exacerbation unclear. possibly non compliance. She had recent echo on 07/18/16 that revealed Ef of 60% with mild diastolic dysfunction. She has a preserved EF. Will continue diuresis. She is net negative 3370 ML since admission. renal function stable. we will continue current dose of lasix. Strict I's and Os and fluid restriction. Daily weights. She is unsure of her baseline weight. (2) Acute exacerbation of COPD with asthma Current Visit: Yes Status: Acute Assessment and plan: No history of tobacco abuse. However the patient has a history of Asthma since she was an . Continue steroids and Bronchodialaters. O2 as needed. Will continue Cefepime. Today is day 4 of antibiotics. she will need to resume home inhalers however she is on frequent duonebs and IV steroids at this time. (4) Acute bronchitis Current Visit: Yes Status: Acute Assessment and plan: as stated above. (5) Generalized weakness Current Visit: Yes Status: Acute Assessment and plan: likely secondary to illness. No myalgias. She was able to get to her chair this AM without difficulty. improved. PT/OT has recommended Home health and a Rollator upon discharge. (6) Morbid obesity Current Visit: Yes Status: Acute Assessment and plan: strongly advise weight loss (7) Coronary artery disease Current Visit: Yes Status: Acute Assessment and plan: patient had severe one vessel disease and had JOSELYN placed to OMII in 2013. not currently on plavix. However she is well over 1 year. Continue ASA. Should also be on statin. Will trend LFTs and if normalize we will place her on statin if she is agreeable. (10) DVT prophylaxis Current Visit: Yes Status: Acute Assessment and plan: continue SQ lovenox. (11) UTI (urinary tract infection) Current Visit: Yes Status: Acute Assessment and plan: urine cultures show no growth. Qualifiers: Urinary tract infection type: acute cystitis Hematuria presence: without hematuria Qualified Code(s): N30.00 - Acute cystitis without hematuria (12) Anasarca Current Visit: Yes Status: Acute Assessment and plan: improving. Less edema on todays exam. (13) Elevated transaminase level Current Visit: Yes Status: Acute Assessment and plan: mildly elevated. etiology unclear. will screen for hepatitis will repeat LFTs. - Subjective Interval history: Today Mrs. Golden states that she is feeling better. she denies any chest pain or discomfort. She denies any increased dyspnea. She states she is wheezing less and feels that her swelling has decreased. she denies any new aches or pains. she denies any new symptoms. she has no further complaints or concerns at this time. - Constitutional Vitals: Temp Pulse Resp BP Pulse Ox 97.8 F 81 20 116/67 92 L 09/29/16 03:36 09/29/16 03:36 09/29/16 03:55 09/29/16 03:36 09/29/16 03:55 General appearance: Present: A&O X 3, morbidly obese, pleasant, no acute distress Internal Medicine: Result - Labs CBC & Chem 7: 09/29/16 04:03 09/29/16 04:03 Labs: Short CBC 09/29/16 Range/Units 04:03 WBC 7.5 (4.3-11.1) K/mcL Hgb 13.7 (11.5-15.4) g/dL Hct 40.0 (35.3-44.9) % Plt Count 193 (140-400) K/mcL BMP 09/29/16 04:03 Sodium 138 Potassium 3.6 Chloride 99 Carbon Dioxide 25 BUN 20 Creatinine 0.85 Glucose 320 H Calcium 9.0 Cardiac Enzymes 09/28/16 Range/Units 07:14 Troponin I 0.03 (0-0.03) ng/mL Consult Discharge Plan - Plan Referrals: Toña Beck CNP [Partnered Physician] - Monica Chahal CNP [Primary Care Provider] - 10/05/16 1:30 pm <Chet Urena H - Last Filed: 10/03/16 15:46> Date of Encounter: 10/03/16 - Constitutional Vitals: Temp Pulse Resp BP Pulse Ox 97.9 F 88 14 126/70 91 L 10/03/16 11:10 10/03/16 11:10 10/03/16 11:10 10/03/16 11:10 10/03/16 11:10 Internal Medicine: Result - Labs CBC & Chem 7: 09/29/16 04:03 10/03/16 03:31 Labs: BMP 10/03/16 03:31 Sodium 138 Potassium 4.0 Chloride 95 L Carbon Dioxide 29 BUN 56 H Creatinine 0.97 Glucose 299 H Calcium 9.3 - Attending Attestation continue cefepime
[2016-09-29 07:13] LABS: Hemoglobin A1C 6.9 %
[2016-09-29 07:20] LABS: Alanine Aminotransferase 54 Units/L (0-55); Albumin 2.9 g/dL (3.5-5.0); Albumin/Globulin Ratio 0.8 (1.1-2.2); Alkaline Phosphatase 73 Units/L (38-126); Aspartate Amino Transferase 23 Units/L (5-34); Bilirubin,Direct 0.2 mg/dL (0.0-0.5); Bilirubin,Indirect 0.2 mg/dL (0.0-1.2); Bilirubin,Total 0.4 mg/dL (0.2-1.2); Globulin 3.6 g/dL (2.4-3.5); Total Protein 6.5 g/dL (6.0-8.3)
[2016-09-29] MEDS: Insulin LISPRO 300 UNITS/3 ML VIAL SQ SCH ×4 (08:49→21:48)
[2016-09-29] MEDS: Diltiazem CD (24hr) 240 MG CAPSULE PO SCH (08:49)
[2016-09-29] MEDS: Aspirin 81 MG TAB.CHEW PO SCH (08:49)
[2016-09-29] MEDS: Cefepime HCl 1,000 MG in D5% in Water (Mini-Bag+) 100 ML IVPB SCH ×2 (08:50→21:49)
[2016-09-29] MEDS: *HR* HYDROcodone/Acet 5/325 mg TABLET PO PRN (10:24)
[2016-09-29 12:10] LABS: Hepatitis A Antibody IgM Nonreactive (Nonreactive); Hepatitis B Core IgM Nonreactive (Nonreactive); Hepatitis B Surface Antigen Nonreactive (Nonreactive); Hepatitis C Virus Antibody Nonreactive (Nonreactive)
[2016-09-29] MEDS ORDERED: Diltiazem CD (24hr) 120 MG CAPSULE PO ONE (12:44)
--- NOTE | 2016-09-29 13:14 | Cardiology Consult Note ---
<Yoni Coon - Last Filed: 09/29/16 13:04> Date of Encounter: 09/29/16 Time of Encounter: 13:05 Assessment and Plan (1) Supraventricular tachycardia Current Visit: No Status: Resolved Pt developed SVT this afternoon. Resolved with IV adenosine x 3 given by primary team. H/o SVT in the past. Agree with increasing cardizem to 360 mg daily. Continue asa. We will have patient follow with our machine i coremaker to discuss ablation. (2) Acute exacerbation of COPD with asthma Current Visit: Yes Status: Acute Per primary team. (3) Acute on chronic diastolic heart failure Current Visit: Yes Status: Ruled-out C/o BLE edema since July and 30 -40 lb wt gain over last several months. Increasing SOB, also treated for bronchitis. CXR - No focal airspace disease. BNP 42. TTE 07/18/16: LVEF 60%, mild LVDD, mild-moderate MR. Last echocardiogram did not shows CHF. BLE edema and weight gain mw be from excessive steroid use over last year. BLE edema improved with IV lasix. Negative 2920ml for stay. Low sodium diet discussed. (4) Coronary artery disease Current Visit: Yes Status: Acute [facility] 12/13/13: severe 1v CAD; successful JOSELYN to mOM2; otherwise mild, non- obstructive CAD; 30% mLAD; 30% mRCA; EF 65% Continue asa, and bb. Documented intolerance to statins d/t muscle pain. Pt c/o left ear pain radiating to jaw. May be related to current illness. Pt concerned that it is similar to what she felt prior to her PCI in 2014. Once improved from COPD standpoint consider stress test. Troponin negative, no acute ST changes. Qualifiers: Coronary Disease-Associated Artery/Lesion type: [place] artery [place] vs. transplanted heart: [place] heart Associated angina: angina presence unspecified Qualified Code(s): I25.10 - Atherosclerotic heart disease of [place] coronary artery without angina pectoris Discussion w patient/family: The assessment and plan as outlined above was discussed with the patient and/or family members who expressed understanding and agreement. All questions were answered. Thank you for involving us in the care of your patient. Please call with any questions. History of Present Illness Consult date: 09/29/16 Consult reason: SVT Chief complaint: Lightheaded, SOB History of present illness: Ms. Golden is a 66 year old female who presented to the hospital with weakness and SOB. She was being treated for UTI and bronchitis in the out-pt setting over the past week. She was seen at urgent care and started on keflex. Her symptoms continued to increase. C/o left ear pain radiating to her jaw on tuesday. Pain similar to what she felt prior to previous PCI. On tuesday she felt so weak she could not stand on her own. She was diagnosed with CHF, COPD exacerbation, and UTI. She also c/o increasing BLE edema she relates to taking excessive steroids over the past several months. Lasix recently increased by cardiology and she had some improvement. Now on IV lasix and continues to improve. She is being treated with IV antibiotics and nebulazer. Today she developed SVT with heart rates in the 200's after ambulating to the bathroom. A rapid response was called and she was given adenosine 6 mg, 12 mg, and 12 mg, by primary team,and converted to SR with frequent PAC. Cardiology consulted for recurrent SVT. She was diagnosed with SVT 07/2016 and started on cardizem. Past medical history significant for CAD s/p PCI (2013), HTN, morbid obesity, COPD/asthma . Prior CV testing includes: TTE 07/18/16: LVEF 60%, mild LVDD, mild-moderate [facility] 12/13/13: severe 1v CAD; successful JOSELYN to mOM2; otherwise mild, non- obstructive CAD; 30% mLAD; 30% mRCA; EF 65% Past Med Surg Social Fam HX - Past Medical History Medical history: asthma Psychiatric history: no psych history - Past Surgical History Surgical History: angioplasty/stent, hysterectomy - Social History Smoking Status: Unknown if ever smoked Smokeless Tobacco Status: No Alcohol use: none Drug use: none - Family History Brother Living Status: Still Living Hx Family Cardiac Disorders: Yes (HTN) Hx Family Endocrine Disorder: Yes (Diabetes) Mother Living Status: Hx Family Cardiac Disorders: Yes (HTN) Hx Family Endocrine Disorder: Yes (Diabetes) Father Living Status: Hx Family Cardiac Disorders: Yes (CABG x3 HTN diabetes) Hx Family Respiratory Disorders: No Hx Family Cancer: No Hx Family GI Disorders: No Hx Family Endocrine Disorder: Yes Hx Family Neuromuscular Disorders: No Hx Family Neurologic Disorders: No Hx Family HEENT Disorders: No Hx Family Autoimmune Disorders: No Medications and Allergies Aspirin 81 mg PO DAILY 07/13/16 [History] Biotin 1,000 mcg PO DAILY 07/13/16 [History] Fluticasone Propionate Nasal [Flonase] 50 mcg NS HS 07/13/16 [History] HYDROcodone/Acet 5/325 mg [[place] 5-325 mg] 1 tab PO Q6H PRN 07/13/16 [History] Multivit-Min/Iron Fum/Folic AC [Cnbef-Dzaujrw-Hyduaffo Tablet] 1 tab PO DAILY [History] Albuterol Sulfate [Ventolin Hfa] 2 puff IH Q4H PRN 07/18/16 [History] Fluticasone/Vilanterol [Breo Ellipta 100-25 Mcg INH] 1 puff IH QAM 07/18/16 [ History] Diltiazem CD (24hr) [Cardizem CD] 240 mg PO DAILY #30 cap.er.24h 07/20/16 [Rx] Promethazine/Dextromethorphan [Promethazine-Dm Syrup] 5 ml PO Q6H PRN #120 ml [Rx] Furosemide [Lasix] 20 mg PO BID 09/27/16 [History] Albuterol Neb [AccuNeb] 0.63 mg IH Q6H PRN 09/28/16 [History] Cetirizine HCl [Cetirizine HCl] 10 mg PO DAILY 09/28/16 [History] Potassium Chloride [K-Tab ER] 20 meq PO DAILY 09/28/16 [History] Allergies levofloxacin [From Levaquin] Allergy (Verified 09/28/16 08:50) Hives Penicillins Allergy (Verified 09/28/16 08:50) Blister prednisone Allergy (Verified 09/28/16 08:50) See Comments all over swelling Sulfa (Sulfonamide Antibiotics) Allergy (Verified 09/28/16 08:50) Hives Banana Adverse Reaction (Severe, Verified 09/28/16 08:50) Blister egg Adverse Reaction (Severe, Verified 09/28/16 08:50) Throat swelling nitrofurantoin [From Macrobid] Adverse Reaction (Severe, Verified 09/28/16 08:50 ) Bruising on arms All Systems Review: A 10-system review of systems was performed and is negative for pertinent findings except as documented above in the HPI. Physical Examination Vital Signs, Last 4 Hours Temp Pulse Resp BP Pulse Ox 09/29/16 11:34 97.5 F L 97 15 120/68 91 L 09/29/16 10:49 16 92 L General: Conversant, No Apparent Distress, Other ( obese female, ill appearing) HEENT: Atraumatic, Normocephaly, Mucus Membranes Moist Neck: No JVD, Normal carotid pulses Cardiac: Reg Rate and Rhythm, Normal S1 and S2, No Murmur, Other (SR with PAC) Lungs: Other (Respirations slightly labored. Course rhonci scattered throughout. ) Neuro: Alert and responsive, No focal deficits noted Abdomen: Soft, Non-Tender Skin: No rashes noted on visualized skin Musculoskeletal: No Chest Wall Tenderness Extremities: No Clubbing, No Cyanosis, No Edema, Normal Pulses Results 09/29/16 04:03 09/29/16 04:03 Lab Results 09/29/16 09/29/16 09/29/16 04:03 04:03 04:03 WBC 7.5 Hgb 13.7 Hct 40.0 Plt Count 193 Sodium 138 Potassium 3.6 Chloride 99 Carbon Dioxide 25 BUN 20 Creatinine 0.85 Glucose 320 H Calcium 9.0 Magnesium 1.9 Total Bilirubin 0.4 AST 23 ALT 54 Alkaline Phosphatase 73 Chest X-Ray 09/27/16 15:53 IMPRESSION: 1. No focal airspace disease identified. D/ / Anastacio Butcher MD / Anastacio Butcher MD Interpreting Provider: Anastacio Butcher MD - Imaging and Cardiology Chest Xray: report reviewed Echo: report reviewed - EKG Interpretation EKG results cardiology: personally reviewed (SR with PAC. No ST changes.), other Consult Discharge Plan - Plan Referrals: Toña Beck CNP [Partnered Physician] - Monica Chahal CNP [Primary Care Provider] - 10/05/16 1:30 pm <Adelaida Winters - Last Filed: 09/30/16 13:40> Date of Encounter: 09/30/16 Assessment and Plan Discussion w patient/family: The assessment and plan as outlined above was discussed with the patient and/or family members who expressed understanding and agreement. All questions were answered. Thank you for involving us in the care of your patient. Please call with any questions. History of Present Illness History of present illness: Ms. Golden is a 66 year old female All Systems Review: A 10-system review of systems was performed and is negative for pertinent findings except as documented above in the HPI. Physical Examination Vital Signs, Last 4 Hours Temp Pulse Resp BP Pulse Ox 09/30/16 11:56 97.7 F 83 16 119/81 94 L 09/30/16 10:18 18 95 Results 09/29/16 04:03 09/30/16 05:33 Lab Results 09/29/16 09/30/16 13:05 05:33 Sodium 138 Potassium 4.9 H D Chloride 100 Carbon Dioxide 27 BUN 37 H D Creatinine 0.87 Glucose 243 H Calcium 9.3 Troponin I 0.01 - Attending Attestation I examined this patient and my medical decision-making was reviewed with the GLASS OR MIRROR INSPECTOR/PA/Advanced Practice Nurse/Resident Physician. I agree with the documented findings, disposition and treatment plan. Ms. Golden presents with chest symptoms most consistent with COPD exacerbation. There have been no ECG changes and troponin negative. Also her lungs are clear and BNP is normal at 42. Her symptoms do not appear consistent with a cardiac etiology. Her LV systolic function was recently evaluated and normal. She also had an episode of SVT while hospitalized which terminated abruptly to NSR. We will have Dr. Sivakumar Sheridan follow up with her as an outpatient. Recommend continuing low dose aspirin. We will sign off. Please call with questions.
[2016-09-29 13:26] LABS: Calcium 9.4 mg/dL (8.6-10.8); Magnesium 1.5 mg/dL (1.6-2.6); Potassium 3.9 mEq/L (3.5-4.5)
--- NOTE | 2016-09-29 13:44 | Event Note ---
Date of Encounter: 09/29/16 Time of Encounter: 13:39 Rapid response was called at 12:22 PM. I arrived approximately 2 minutes later. Patient was in SVT with HR as high as 210. Carotid massage and vagal maneuvers were attempted and were unsuccessful. She was given 6mg of Adenosine , followed by 12mg of adenosine, and a final dose of 12mg of adenosine. She was also given 5mg of metoprolol IVP. The Patients SVT resolved. She remained Hemodynamically stable throughout the rapid response. systolic blood pressure was never under 90. She also remained alert and orientated throughout and conversed with medical staff throughout the process. AM labs were reviewed. She had no major electrolyte abnormalities at that time. we have ordered a repeat BMP and Mg. We also increased cardizem CD from 240 mg to 360 per day. we will transfer her to a higher level of care. We will consult Cardiology as well.
[2016-09-29] MEDS: *HR* Metoprolol 5 MG/5 ML VIAL IVP SCH (15:32)
[2016-09-29] MEDS: Melatonin 3 MG TABLET PO SCH (21:49)
[2016-09-30] MEDS: Ipratropium/Albuterol Neb 3 ML IH SCH ×4 (03:32→22:44)
[2016-09-30] MEDS: *HR* Enoxaparin 40 MG/0.4 ML SYRINGE SQ SCH (05:28)
[2016-09-30] MEDS: Furosemide 40 MG/4 ML VIAL IVP SCH ×3 (05:28→22:23)
[2016-09-30] MEDS: MethylPREDNISolone 40 MG/ML VIAL IVP SCH ×2 (05:29→20:00)
[2016-09-30 06:15] LABS: BUN/Creatinine Ratio 43 (6-26); Calcium 9.3 mg/dL (8.6-10.8); Carbon Dioxide 27 mEq/L (19-29); Chloride 100 mEq/L (98-109); Glucose 243 mg/dL (70-99); Osmolality,Calculated 303 (280-300); Sodium 138 mEq/L (136-145); eGFR For African Americans > 60 (> 60); eGFR For Non-African Americans > 60 (> 60)
[2016-09-30 06:38] LABS: Blood Urea Nitrogen 37 mg/dL (7-20); Potassium 4.9 mEq/L (3.5-4.5)
--- NOTE | 2016-09-30 10:42 | Cardiology Progress Note ---
Date of Encounter: 09/30/16 Time of Encounter: 10:40 Assessment and Plan (1) Supraventricular tachycardia Current Visit: No Status: Resolved Pt developed SVT yesterday not relieved with vagal manuever. Resolved with IV adenosine x 3 and metoprolol given by primary team. H/o SVT in the past. Cardizem increased to 360 mg daily. No recurrent SVT seen. Continue asa. We will have patient follow with our instructor weaving to discuss ablation. We will reviewed rhythm strips from yesterday with Dr. Sheridan. Out-pt follow up will be made with Dr. Sivakumar Sheridan. Call with questions. (2) Acute exacerbation of COPD with asthma Current Visit: Yes Status: Acute Per primary team. H/o asthma since she was a child. (3) Acute on chronic diastolic heart failure Current Visit: Yes Status: Ruled-out C/o BLE edema since July and 30 -40 lb wt gain over last several months. Increasing SOB, also treated for bronchitis. CXR - No focal airspace disease. BNP 42. TTE 07/18/16: LVEF 60%, mild LVDD, mild-moderate MR. Last echocardiogram did not shows CHF. BLE edema and weight gain mw be from excessive steroid use over last year. BLE edema significantly improved with IV lasix. Negative 4520ml for stay. Low sodium diet discussed. (4) Coronary artery disease Current Visit: Yes Status: Acute [facility] 12/13/13: severe 1v CAD; successful JOSELYN to mOM2; otherwise mild, non- obstructive CAD; 30% mLAD; 30% mRCA; EF 65% Continue asa, and bb. Documented intolerance to statins d/t muscle pain. Pt c/o left ear pain radiating to jaw 2 days ago. May be related to current illness. Pt concerned that it is similar to what she felt prior to her PCI in 2014. Once improved from COPD standpoint consider stress test. Troponin negative, no acute ST changes. Qualifiers: Coronary Disease-Associated Artery/Lesion type: [place] artery [place] vs. transplanted heart: [place] heart Associated angina: angina presence unspecified Qualified Code(s): I25.10 - Atherosclerotic heart disease of [place] coronary artery without angina pectoris Discussion w patient/family: The assessment and plan as outlined above was discussed with the patient and/or family members who expressed understanding and agreement. All questions were answered. Thank you for involving us in the care of your patient. Please call with any questions. Subjective Principal diagnosis: SVT, COPD exacerbation. Interval history: No new events overnight. C/o persistent cough and left sided chest discomfort with cough and palpation. Objective Vital Signs, Last 4 Hours Temp Pulse Resp BP Pulse Ox 09/30/16 07:57 92 L 09/30/16 07:11 97.6 F 89 16 120/70 92 L General: Conversant, No Apparent Distress, Other (Obese, ill appearing) HEENT: Atraumatic, Normocephaly, Mucus Membranes Moist Neck: No JVD, Normal carotid pulses Cardiac: Reg Rate and Rhythm, Normal S1 and S2, No Murmur, Other (SR with PAC) Lungs: Other (Rhonci and expiratory wheezes throughout. ) Neuro: Alert and responsive, No focal deficits noted Abdomen: Soft, Non-Tender Skin: No rashes noted on visualized skin Musculoskeletal: No Chest Wall Tenderness Extremities: Other (trace pitting edema in ankles. BLE edema significantly imroved. ) Results 09/29/16 04:03 09/30/16 05:33 Lab Results 09/29/16 09/29/16 09/30/16 13:05 13:05 05:33 Sodium 139 138 Potassium 3.9 4.9 H D Chloride 100 100 Carbon Dioxide 22 27 BUN 26 H 37 H D Creatinine 1.19 H 0.87 Glucose 315 H 243 H Calcium 9.4 9.3 Magnesium 1.5 L Troponin I 0.01 - EKG Interpretation EKG results cardiology: other (12 hour telemetry review shows NSR with PAC. Avg HR was 82 bpm.) Consult Discharge Plan - Plan Referrals: Toña Beck CNP [Partnered Physician] - Monica Chahal CNP [Primary Care Provider] - 10/05/16 1:30 pm
[2016-09-30] MEDS: *HR* HYDROcodone/Acet 5/325 mg TABLET PO PRN (10:48)
[2016-09-30] MEDS: Aspirin 81 MG TAB.CHEW PO SCH (10:48)
[2016-09-30] MEDS: Diltiazem CD (24hr) 180 MG CAPSULE PO SCH (10:49)
[2016-09-30] MEDS: Insulin LISPRO 300 UNITS/3 ML VIAL SQ SCH ×4 (10:49→22:38)
[2016-09-30] MEDS: Cefepime HCl 1,000 MG in D5% in Water (Mini-Bag+) 100 ML IVPB SCH ×2 (10:49→22:24)
[2016-09-30] MEDS: *HR* Metoprolol 5 MG/5 ML VIAL IVP SCH (11:59)
--- NOTE | 2016-09-30 15:15 | Internal Med Progress Note ---
<Rene Guido - Last Filed: 09/30/16 15:12> Date of Encounter: 09/30/16 Time of Encounter: 15:13 - Assessment and plan (1) Acute on chronic diastolic heart failure Current Visit: Yes Status: Ruled-out Assessment and plan: Etiology of exacerbation unclear. likely non compliance. She had recent echo on 07/18/16 that revealed Ef of 60% with mild diastolic dysfunction. She has a preserved EF. Will continue diuresis. She is net negative 4L since admission. renal function stable. we will continue current dose of lasix. Strict I's and Os and fluid restriction. Daily weights. (2) Acute exacerbation of COPD with asthma Current Visit: Yes Status: Acute Assessment and plan: No history of tobacco abuse. However the patient has a history of Asthma since she was an . Continue steroids and Bronchodialaters. O2 as needed. Will continue Cefepime. Today is day 5 of antibiotics. plan to DC tomorrow. she will need to resume home inhalers however she is on frequent duonebs and IV steroids at this time. (3) SVT (supraventricular tachycardia) Current Visit: Yes Status: Acute Assessment and plan: No more episode since yesterday. Continue cardizem CD 360 mg PO per day. She will follow with cardiology. She has an appointment with Dr Sheridan our senior quality control technician. (4) UTI (urinary tract infection) Current Visit: Yes Status: Acute Assessment and plan: urine cultures show no growth. Qualifiers: Urinary tract infection type: acute cystitis Hematuria presence: without hematuria Qualified Code(s): N30.00 - Acute cystitis without hematuria (5) Acute bronchitis Current Visit: Yes Status: Acute Assessment and plan: as stated above. (6) Generalized weakness Current Visit: Yes Status: Acute Assessment and plan: improved. PT/OT has recommended Home health and a Rollator upon discharge. (7) Morbid obesity Current Visit: Yes Status: Acute (8) Elevated transaminase level Current Visit: Yes Status: Acute Assessment and plan: resolved (9) Coronary artery disease Current Visit: Yes Status: Acute Assessment and plan: patient had severe one vessel disease and had JOSELYN placed to OMII in 2013. not currently on plavix. However she is well over 1 year. Continue ASA. Patient has a statin Allergy Qualifiers: Coronary Disease-Associated Artery/Lesion type: [place] artery [place] vs. transplanted heart: [place] heart Associated angina: angina presence unspecified Qualified Code(s): I25.10 - Atherosclerotic heart disease of [place] coronary artery without angina pectoris (10) DVT prophylaxis Current Visit: Yes Status: Acute Assessment and plan: continue SQ lovenox. - Subjective Interval history: No major events overnight. No further episodes of SVT. The patient states that she is feeling better. She states she is coughing more but not able to bring anything up. She denies any chest pain, dyspnea, presyncope, or palpitations. She states that her edema has improved. she has no further complaints or concerns at this time. - Constitutional Vitals: Temp Pulse Resp BP Pulse Ox 97.7 F 83 16 119/81 94 L 09/30/16 11:56 09/30/16 11:56 09/30/16 11:56 09/30/16 11:56 09/30/16 11:56 General appearance: Present: A&O X 3, morbidly obese, pleasant, no acute distress - Head Head exam: Present: atraumatic, normal inspection, normocephalic - Eye Eye exam: Present: PERRL, conjuntiva pink, sclera anicteric Pupils: Present: PERRL - ENT ENT exam: Present: mucous membranes moist - Neck Neck exam general surgery: Present: supple, trachea midline. Absent: lymphadenopathy - Respiratory Respiratory exam: Present: rhonchi, wheezes. Absent: accessory muscle use, rales - Cardiovascular Cardiovascular exam: Present: RRR, +S1, +S2. Absent: diastolic murmur, gallop, rubs, systolic murmur - GI/Abdominal GI/Abdominal exam: Present: normal bowel sounds, soft, no peritoneal signs. Absent: distended, tenderness Additional comments: obese - Extremities Exam Extremities exam: Present: pedal edema (2+ to the knee bilaterally. ), warm, radial pulses palpable and symetrical. Absent: calf tenderness, cyanotic - Skin Skin exam: Present: dry, intact Internal Medicine: Result - Labs CBC & Chem 7: 09/29/16 04:03 09/30/16 05:33 Labs: BMP 09/30/16 05:33 Sodium 138 Potassium 4.9 H D Chloride 100 Carbon Dioxide 27 BUN 37 H D Creatinine 0.87 Glucose 243 H Calcium 9.3 Consult Discharge Plan - Plan Referrals: Toña Beck CNP [Partnered Physician] - Monica Chahal CNP [Primary Care Provider] - 10/05/16 1:30 pm <Chet Urena - Last Filed: 09/30/16 17:10> Date of Encounter: 09/30/16 - Constitutional Vitals: Temp Pulse Resp BP Pulse Ox 97.8 F 103 16 127/99 92 L 09/30/16 16:37 09/30/16 16:37 09/30/16 16:37 09/30/16 16:37 09/30/16 16:37 Internal Medicine: Result - Labs CBC & Chem 7: 09/29/16 04:03 09/30/16 05:33 Labs: BMP 09/30/16 05:33 Sodium 138 Potassium 4.9 H D Chloride 100 Carbon Dioxide 27 BUN 37 H D Creatinine 0.87 Glucose 243 H Calcium 9.3 - Attending Attestation continue lasix TID, may discharge in the morning if stable I examined this patient and my medical decision-making was reviewed with the FRONT END ENGINEER/PA/Advanced Practice Nurse/Resident Physician. I agree with the documented findings, disposition and treatment plan as described except to the extent set forth below.
--- NOTE | 2016-09-30 19:43 | Electrocardiograph Report ---
[place] [id number] Test Date: 2016-09-29 Pat Name: Aixa Golden Department: [id number] Room: 2N3 Gender: F Scale Tank Operator: : 1950 Requested By: Chet Urena Order Number: [id number] Reading MD: Sivakumar Sheridan Measurements Intervals Violet Rate: 209 P: LA: 0 QRS: 0 QRSD: 105 T: 154 QT: 197 QTc: 299 Interpretive Statements SUPRAVENTRICULAR TACHYCARDIA NONSPECIFIC ST \T\ T-WAVE ABNORMALITY Electronically Signed On 09-30-2016 19:41:52 EST by Sivakumar Sheridan
[2016-09-30] MEDS: Fluticasone Propionate Nasal 50 MCG/SPRAY BOTTLE NS SCH (20:00)
[2016-09-30] MEDS: Melatonin 3 MG TABLET PO SCH (22:23)
[2016-10-01] MEDS: Ipratropium/Albuterol Neb 3 ML IH SCH ×4 (04:32→22:10)
[2016-10-01] MEDS: *HR* Enoxaparin 40 MG/0.4 ML SYRINGE SQ SCH (05:10)
[2016-10-01] MEDS: Furosemide 40 MG/4 ML VIAL IVP SCH ×3 (05:10→22:02)
[2016-10-01] MEDS: MethylPREDNISolone 40 MG/ML VIAL IVP SCH ×2 (05:10→17:43)
[2016-10-01 07:38] LABS: BUN/Creatinine Ratio 49 (6-26); Blood Urea Nitrogen 43 mg/dL (7-20); Calcium 9.1 mg/dL (8.6-10.8); Carbon Dioxide 27 mEq/L (19-29); Chloride 98 mEq/L (98-109); Glucose 320 mg/dL (70-99); Osmolality,Calculated 313 (280-300); Potassium 4.1 mEq/L (3.5-4.5); Sodium 140 mEq/L (136-145); eGFR For African Americans > 60 (> 60); eGFR For Non-African Americans > 60 (> 60)
[2016-10-01] MEDS: Aspirin 81 MG TAB.CHEW PO SCH (09:31)
[2016-10-01] MEDS: Diltiazem CD (24hr) 180 MG CAPSULE PO SCH (09:32)
[2016-10-01] MEDS: Insulin LISPRO 300 UNITS/3 ML VIAL SQ SCH ×4 (09:33→22:02)
[2016-10-01] MEDS: Fluticasone Propionate Nasal 50 MCG/SPRAY BOTTLE NS SCH (09:33)
--- NOTE | 2016-10-01 12:04 | Internal Med Progress Note ---
<Rene Guido - Last Filed: 10/01/16 12:00> Date of Encounter: 10/01/16 Time of Encounter: 12:01 - Assessment and plan (1) Acute on chronic diastolic heart failure Current Visit: Yes Status: Ruled-out Assessment and plan: Etiology of exacerbation unclear. likely non compliance. She had recent echo on 07/18/16 that revealed Ef of 60% with mild diastolic dysfunction. She has a preserved EF. Will continue diuresis. She is net negative 4500 mL since admission. renal function stable. we will continue current dose of lasix. Strict I's and Os and fluid restriction. Daily weights. (2) Acute exacerbation of COPD with asthma Current Visit: Yes Status: Acute Assessment and plan: No history of tobacco abuse. However the patient has a history of Asthma since she was an infant. Continue steroids and Bronchodialaters. O2 as needed. Today is day 5 of antibiotics will discontinue as this completes her course. she will need to resume home inhalers however she is on frequent duonebs and IV steroids at this time. add mucinex and flutter valve. (3) SVT (supraventricular tachycardia) Current Visit: Yes Status: Acute Assessment and plan: No more episode since yesterday. Continue cardizem CD 360 mg PO per day. She will follow with cardiology. She has an appointment with Dr Sheridan our crimping machine operator for metal. (4) UTI (urinary tract infection) Current Visit: Yes Status: Acute Assessment and plan: urine cultures show no growth. Qualifiers: Urinary tract infection type: acute cystitis Hematuria presence: without hematuria Qualified Code(s): N30.00 - Acute cystitis without hematuria (5) Acute bronchitis Current Visit: Yes Status: Acute Assessment and plan: as stated above. (6) Generalized weakness Current Visit: Yes Status: Acute Assessment and plan: improved. PT/OT has recommended Home health and a Rollator upon discharge. (7) Morbid obesity Current Visit: Yes Status: Acute Assessment and plan: strongly advise weight loss (8) Elevated transaminase level Current Visit: Yes Status: Acute Assessment and plan: resolved (9) Coronary artery disease Current Visit: Yes Status: Acute Assessment and plan: patient had severe one vessel disease and had JOSELYN placed to OMII in 2013. not currently on plavix. However she is well over 1 year. Continue ASA. Patient has a statin Allergy Qualifiers: Coronary Disease-Associated Artery/Lesion type: [place] artery [place] vs. transplanted heart: [place] heart Associated angina: angina presence unspecified Qualified Code(s): I25.10 - Atherosclerotic heart disease of [place] coronary artery without angina pectoris (10) DVT prophylaxis Current Visit: Yes Status: Acute Assessment and plan: continue SQ lovenox. - Subjective Interval history: No major events overnight. no further epsiodes of SVT. Denies chest pain, dyspnea, presyncope. She complains of more "Rattling" and cough. She alos has a lot of concerns about the logistics of having home O2. we will have SS speak with her. No further complaints at this time. - Constitutional Vitals: Temp Pulse Resp BP Pulse Ox 97.5 F L 94 16 135/72 100 10/01/16 11:23 10/01/16 11:23 10/01/16 11:23 10/01/16 11:23 10/01/16 11:23 General appearance: Present: A&O X 3, morbidly obese, pleasant, no acute distress, obese - Head Head exam: Present: atraumatic, normocephalic - Eye Eye exam: Present: PERRL, conjuntiva pink, sclera anicteric Pupils: Present: PERRL - Neck Neck exam general surgery: Present: supple, trachea midline. Absent: lymphadenopathy - Respiratory Respiratory exam: Present: rhonchi, wheezes. Absent: accessory muscle use, rales - Cardiovascular Cardiovascular exam: Present: RRR, +S1, +S2. Absent: diastolic murmur, gallop, rubs, systolic murmur - GI/Abdominal GI/Abdominal exam: Present: normal bowel sounds, soft, no peritoneal signs. Absent: distended, tenderness Additional comments: obese - Extremities Exam Extremities exam: Present: pedal edema (2+ bilaterally to the knee. ), warm, radial pulses palpable and symetrical. Absent: calf tenderness, cyanotic - Skin Skin exam: Present: dry, intact Internal Medicine: Result - Labs CBC & Chem 7: 09/29/16 04:03 10/01/16 07:07 Labs: BMP 10/01/16 07:07 Sodium 140 Potassium 4.1 Chloride 98 Carbon Dioxide 27 BUN 43 H Creatinine 0.88 Glucose 320 H Calcium 9.1 Consult Discharge Plan - Plan Referrals: Toña Beck CNP [Partnered Physician] - Monica Chahal CNP [Primary Care Provider] - 10/05/16 1:30 pm <Chet Urena - Last Filed: 10/01/16 16:26> Date of Encounter: 10/01/16 - Constitutional Vitals: Temp Pulse Resp BP Pulse Ox 97.8 F 84 16 132/77 96 10/01/16 15:59 10/01/16 15:59 10/01/16 15:59 10/01/16 15:59 10/01/16 15:59 Internal Medicine: Result - Labs CBC & Chem 7: 09/29/16 04:03 10/01/16 07:07 Labs: BMP 10/01/16 07:07 Sodium 140 Potassium 4.1 Chloride 98 Carbon Dioxide 27 BUN 43 H Creatinine 0.88 Glucose 320 H Calcium 9.1 - Attending Attestation decrease fluid restriction down to 1200 cc a day completed 5 days of cefepime for UTI may discharge in the morning is stable. Refused inpatient rehabilitation. For this encounter, I have reviewed the ORNAMENT SETTER or PA documentation, treatment plan, and medical decision making; and I have had face to face time with this patient.
[2016-10-01] MEDS: *HR* Metoprolol 5 MG/5 ML VIAL IVP SCH (17:39)
[2016-10-01] MEDS: Melatonin 3 MG TABLET PO SCH (22:02)
[2016-10-02] MEDS: Ipratropium/Albuterol Neb 3 ML IH SCH ×4 (04:26→22:27)
[2016-10-02] MEDS: MethylPREDNISolone 40 MG/ML VIAL IVP SCH (05:14)
[2016-10-02] MEDS: Furosemide 40 MG/4 ML VIAL IVP SCH ×3 (05:15→15:58)
[2016-10-02] MEDS: *HR* Enoxaparin 40 MG/0.4 ML SYRINGE SQ SCH (05:15)
[2016-10-02 06:13] LABS: BUN/Creatinine Ratio 47 (6-26); Blood Urea Nitrogen 47 mg/dL (7-20); Calcium 9.2 mg/dL (8.6-10.8); Carbon Dioxide 27 mEq/L (19-29); Chloride 96 mEq/L (98-109); Glucose 335 mg/dL (70-99); Osmolality,Calculated 313 (280-300); Potassium 3.8 mEq/L (3.5-4.5); Sodium 139 mEq/L (136-145); eGFR For African Americans > 60 (> 60); eGFR For Non-African Americans 55 (> 60)
[2016-10-02] MEDS: Insulin LISPRO 300 UNITS/3 ML VIAL SQ SCH ×3 (07:43→16:44)
[2016-10-02] MEDS: Aspirin 81 MG TAB.CHEW PO SCH (08:15)
[2016-10-02] MEDS: Diltiazem CD (24hr) 180 MG CAPSULE PO SCH (08:17)
[2016-10-02] MEDS: Fluticasone Propionate Nasal 50 MCG/SPRAY BOTTLE NS SCH (08:21)
[2016-10-02] MEDS ORDERED: Insulin LISPRO 300 UNITS/3 ML VIAL SQ SCH (14:33)
--- NOTE | 2016-10-02 14:36 | Internal Med Progress Note ---
<Rene Guido - Last Filed: 10/02/16 14:33> Date of Encounter: 10/02/16 Time of Encounter: 14:33 - Assessment and plan (1) Acute on chronic diastolic heart failure Current Visit: Yes Status: Ruled-out Assessment and plan: Etiology of exacerbation unclear. Most likely non compliance. She had recent echo on 07/18/16 that revealed Ef of 60% with mild diastolic dysfunction. She has a preserved EF. Will continue diuresis. She is net negative 5600 mL since admission. renal function stable. we will decrease her lasix to 40 mg IV BID Strict I's and Os and fluid restriction. Daily weights. (2) Acute exacerbation of COPD with asthma Current Visit: Yes Status: Acute Assessment and plan: No history of tobacco abuse. However the patient has a history of Asthma since she was an infant. Continue Bronchodialaters. O2 as needed. We will wean her to PO prednisone. . she will need to resume home inhalers however she is on frequent duonebs and IV steroids at this time. (3) SVT (supraventricular tachycardia) Current Visit: Yes Status: Acute Assessment and plan: No more episode since yesterday. Continue cardizem CD 360 mg PO per day. She will follow with cardiology. She has an appointment with Dr Sheridan our usability strategist. (4) UTI (urinary tract infection) Current Visit: Yes Status: Acute Assessment and plan: Resolved DC go to prevent recurrence. Qualifiers: Urinary tract infection type: acute cystitis Hematuria presence: without hematuria Qualified Code(s): N30.00 - Acute cystitis without hematuria (5) Acute bronchitis Current Visit: Yes Status: Acute Assessment and plan: as stated above. (6) Generalized weakness Current Visit: Yes Status: Acute Assessment and plan: PAtient complaining of continued generalized weakness. Will have PT reevaluate her. (7) Morbid obesity Current Visit: Yes Status: Acute Assessment and plan: strongly advise weight loss (8) Elevated transaminase level Current Visit: Yes Status: Acute Assessment and plan: resolved (9) Coronary artery disease Current Visit: Yes Status: Acute Assessment and plan: patient had severe one vessel disease and had JOSELYN placed to OMII in 2013. not currently on plavix. However she is well over 1 year. Continue ASA. Patient has a statin Allergy Qualifiers: Coronary Disease-Associated Artery/Lesion type: [place] artery [place] vs. transplanted heart: [place] heart Associated angina: angina presence unspecified Qualified Code(s): I25.10 - Atherosclerotic heart disease of [place] coronary artery without angina pectoris (10) DVT prophylaxis Current Visit: Yes Status: Acute Assessment and plan: continue SQ lovenox. - Subjective Interval history: No major events overnight. The patient states that she is feeling much better. She dose complain of being weak. She states that she gets fatigued with sitting in chair and dose not think that she can even make it to the bathroom. She denies any chest pain or palpitations. She states that she is breathing much better and that her edema is improving. She has no further complaints or concerns at this time. - Constitutional Vitals: Temp Pulse Resp BP Pulse Ox 98.0 F 109 16 122/98 95 10/02/16 11:37 10/02/16 11:37 10/02/16 11:37 10/02/16 11:37 10/02/16 11:37 General appearance: Present: A&O X 3, morbidly obese, pleasant, no acute distress, obese - Head Head exam: Present: atraumatic, normocephalic - Eye Eye exam: Present: PERRL, conjuntiva pink, sclera anicteric Pupils: Present: PERRL - Neck Neck exam general surgery: Present: supple, trachea midline. Absent: lymphadenopathy - Respiratory Respiratory exam: Present: CTAB, rhonchi. Absent: accessory muscle use, rales, wheezes Additional comments: improving - Cardiovascular Cardiovascular exam: Present: RRR, +S1, +S2. Absent: diastolic murmur, gallop, rubs, systolic murmur - GI/Abdominal GI/Abdominal exam: Present: normal bowel sounds, soft, no peritoneal signs. Absent: distended, tenderness Additional comments: obese - Extremities Exam Extremities exam: Present: pedal edema (2+ to the knee. Improving), warm, radial pulses palpable and symetrical. Absent: calf tenderness, cyanotic Internal Medicine: Result - Labs CBC & Chem 7: 09/29/16 04:03 10/02/16 05:31 Labs: BMP 10/02/16 05:31 Sodium 139 Potassium 3.8 Chloride 96 L Carbon Dioxide 27 BUN 47 H Creatinine 1.00 Glucose 335 H Calcium 9.2 Consult Discharge Plan - Plan Referrals: Toña Beck CNP [Partnered Physician] - Monica Chahal CNP [Primary Care Provider] - 10/05/16 1:30 pm <Chet Urena - Last Filed: 10/02/16 14:47> Date of Encounter: 10/02/16 - Constitutional Vitals: Temp Pulse Resp BP Pulse Ox 98.0 F 109 16 122/98 95 10/02/16 11:37 10/02/16 11:37 10/02/16 11:37 10/02/16 11:37 10/02/16 11:37 Internal Medicine: Result - Labs CBC & Chem 7: 09/29/16 04:03 10/02/16 05:31 Labs: BMP 10/02/16 05:31 Sodium 139 Potassium 3.8 Chloride 96 L Carbon Dioxide 27 BUN 47 H Creatinine 1.00 Glucose 335 H Calcium 9.2 - Attending Attestation decrease lasix form 40 mg tid down to BID. Taper solumedrol I examined this patient and my medical decision-making was reviewed with the SPECIMEN ACCESSIONER/PA/Advanced Practice Nurse/Resident Physician. I agree with the documented findings, disposition and treatment plan as described except to the extent set forth below.
[2016-10-02] MEDS: Melatonin 3 MG TABLET PO SCH (22:41)
[2016-10-03] MEDS: Furosemide 40 MG/4 ML VIAL IVP SCH ×3 (03:02→21:18)
[2016-10-03 04:20] LABS: BUN/Creatinine Ratio 58 (6-26); Blood Urea Nitrogen 56 mg/dL (7-20); Calcium 9.3 mg/dL (8.6-10.8); Carbon Dioxide 29 mEq/L (19-29); Chloride 95 mEq/L (98-109); Glucose 299 mg/dL (70-99); Osmolality,Calculated 313 (280-300); Sodium 138 mEq/L (136-145); eGFR For African Americans > 60 (> 60); eGFR For Non-African Americans 57 (> 60)
[2016-10-03] MEDS: Ipratropium/Albuterol Neb 3 ML IH SCH ×4 (04:39→22:26)
[2016-10-03] MEDS: *HR* Enoxaparin 40 MG/0.4 ML SYRINGE SQ SCH (05:12)
[2016-10-03] MEDS: Insulin LISPRO 300 UNITS/3 ML VIAL SQ SCH ×4 (07:37→21:20)
[2016-10-03] MEDS: Diltiazem CD (24hr) 180 MG CAPSULE PO SCH (08:34)
[2016-10-03] MEDS: Aspirin 81 MG TAB.CHEW PO SCH (08:35)
[2016-10-03] MEDS: Fluticasone Propionate Nasal 50 MCG/SPRAY BOTTLE NS SCH (08:36)
[2016-10-03] MEDS: MethylPREDNISolone 40 MG/ML VIAL IVP SCH (10:31)
--- NOTE | 2016-10-03 13:07 | Internal Med Progress Note ---
<Rene Guido - Last Filed: 10/03/16 13:03> Date of Encounter: 10/03/16 Time of Encounter: 13:03 - Assessment and plan (1) Acute on chronic diastolic heart failure Current Visit: Yes Status: Ruled-out Assessment and plan: Etiology of exacerbation unclear. Most likely non compliance. She had recent echo on 07/18/16 that revealed Ef of 60% with mild diastolic dysfunction. She has a preserved EF. She is still volume overloaded so we will increase her lasix to 40 mg IV TID. renal function stable. Strict I's and Os and fluid restriction. Daily weights. (2) Acute exacerbation of COPD with asthma Current Visit: Yes Status: Acute Assessment and plan: No history of tobacco abuse. However the patient has a history of Asthma since she was an infant. Continue Bronchodialaters. O2 as needed. continue prednisone. . she will need to resume home inhalers however she is on frequent duonebs and IV steroids at this time. (3) SVT (supraventricular tachycardia) Current Visit: Yes Status: Acute Assessment and plan: No more episode since yesterday. Continue cardizem CD 360 mg PO per day. She will follow with cardiology. She has an appointment with Dr Sheridan our senior chemist. (4) Acute bronchitis Current Visit: Yes Status: Acute (5) Generalized weakness Current Visit: Yes Status: Acute Assessment and plan: PAtient complaining of continued generalized weakness. Will have PT reevaluate her. (6) Morbid obesity Current Visit: Yes Status: Acute Assessment and plan: strongly advise weight loss (7) Coronary artery disease Current Visit: Yes Status: Acute Qualifiers: Coronary Disease-Associated Artery/Lesion type: [place] artery [place] vs. transplanted heart: [place] heart Associated angina: angina presence unspecified Qualified Code(s): I25.10 - Atherosclerotic heart disease of [place] coronary artery without angina pectoris (8) Atrial fibrillation Current Visit: Yes Status: Acute Assessment and plan: New onset. CHADSVASC score of 6 ( age/CHF/HTN/Gender/DM/CAD) HAS BLED score of 2 We will add metoprolol to help control her rate. Discussed risks and benefits of anticoagulation. She would prefer Xarelto if possible. I spoke and discussed with Dr. Winters. I appreciate her recommendations. They will see her in the AM and discuss with the patient. (9) Diabetes Current Visit: Yes Status: Acute Assessment and plan: Hg A1C 6.9 continue sliding scale insulin. Will increase to high dose as she is still above goal. should improve when tapered off of steroids. can start on metformin when discharged. should be reevaluated once she is off of steroids. Qualifiers: Diabetes mellitus type: type 2 (10) DVT prophylaxis Current Visit: Yes Status: Acute Assessment and plan: continue SQ lovenox. - Subjective Interval history: This Am patient had Tachycardia in the 120s. An EKG was performed and appears to be atrial fibrillation and also possible aflutter as well. currently her heart rate is ranging from 90-140 in the room averaging in the low 100s. she denies any chest pain or discomfort. She denies any syncope or presyncope. She states that her breathing is improving. She denies any further complaints or concerns at this time. - Constitutional Vitals: Temp Pulse Resp BP Pulse Ox 97.9 F 88 14 126/70 91 L 10/03/16 11:10 10/03/16 11:10 10/03/16 11:10 10/03/16 11:10 10/03/16 11:10 General appearance: Present: A&O X 3, morbidly obese, pleasant, no acute distress, obese - Head Head exam: Present: atraumatic, normocephalic - Eye Eye exam: Present: PERRL, conjuntiva pink, sclera anicteric Pupils: Present: PERRL - Neck Neck exam general surgery: Present: supple, trachea midline. Absent: lymphadenopathy - Respiratory Respiratory exam: Present: rhonchi, wheezes. Absent: accessory muscle use, rales - Cardiovascular Cardiovascular exam: Present: irregular rhythm, +S1, +S2, tachycardia. Absent: diastolic murmur, gallop, rubs, systolic murmur - GI/Abdominal GI/Abdominal exam: Present: normal bowel sounds, soft, no peritoneal signs. Absent: distended, tenderness - Extremities Exam Extremities exam: Present: pedal edema (2+ to the knee bilateral), warm, radial pulses palpable and symetrical. Absent: calf tenderness, cyanotic - Skin Skin exam: Present: dry, intact Internal Medicine: Result - Labs CBC & Chem 7: 09/29/16 04:03 10/03/16 03:31 Labs: BMP 10/03/16 03:31 Sodium 138 Potassium 4.0 Chloride 95 L Carbon Dioxide 29 BUN 56 H Creatinine 0.97 Glucose 299 H Calcium 9.3 Consult Discharge Plan - Plan Referrals: Toña Beck CNP [Partnered Physician] - Monica Chahal CNP [Primary Care Provider] - 10/05/16 1:30 pm <Chet Urena H - Last Filed: 10/03/16 14:09> Date of Encounter: 10/03/16 - Constitutional Vitals: Temp Pulse Resp BP Pulse Ox 97.9 F 88 14 126/70 91 L 10/03/16 11:10 10/03/16 11:10 10/03/16 11:10 10/03/16 11:10 10/03/16 11:10 Internal Medicine: Result - Labs CBC & Chem 7: 09/29/16 04:03 10/03/16 03:31 Labs: [facility] 10/03/16 03:31 Sodium 138 Potassium 4.0 Chloride 95 L Carbon Dioxide 29 BUN 56 H Creatinine 0.97 Glucose 299 H Calcium 9.3 - Attending Attestation possible a fib? add metoprolo to dialtiazem consider Xarelto increase dose of lasix I examined this patient and my medical decision-making was reviewed with the SEWING MACHINE ATTACHMENT TESTER/PA/Advanced Practice Nurse/Resident Physician. I agree with the documented findings, disposition and treatment plan as described except to the extent set forth below.
[2016-10-03] MEDS: Melatonin 3 MG TABLET PO SCH (21:18)
[2016-10-03] MEDS ORDERED: Simethicone 80 MG TAB.CHEW PO PRN (21:51)
[2016-10-04] MEDS: Sennosides 8.6 MG TABLET PO PRN (00:15)
[2016-10-04] MEDS: Ipratropium/Albuterol Neb 3 ML IH SCH (03:48)
[2016-10-04 04:57] LABS: BUN/Creatinine Ratio 56 (6-26); Blood Urea Nitrogen 50 mg/dL (7-20); Calcium 9.4 mg/dL (8.6-10.8); Carbon Dioxide 30 mEq/L (19-29); Chloride 94 mEq/L (98-109); Glucose 299 mg/dL (70-99); Osmolality,Calculated 310 (280-300); Potassium 4.1 mEq/L (3.5-4.5); Sodium 138 mEq/L (136-145); eGFR For African Americans > 60 (> 60); eGFR For Non-African Americans > 60 (> 60)
[2016-10-04] MEDS: *HR* Enoxaparin 40 MG/0.4 ML SYRINGE SQ SCH (05:47)
[2016-10-04] MEDS: Furosemide 40 MG/4 ML VIAL IVP SCH ×3 (05:47→21:59)
--- NOTE | 2016-10-04 08:29 | Cardiology Progress Note ---
<Vinny Jones - Last Filed: 10/04/16 12:38> Date of Encounter: 10/04/16 Time of Encounter: 09:00 Assessment and Plan (1) Atrial fibrillation Current Visit: Yes Status: Acute Per Cardiology: Brief PAF noted on ECG. No known Hx. Now on BB as well as CCB. TSH ok. Mg+ and K + ok. [id number] = 2/3. Xarelto bueno check pending per primary service. Discussed with Dr. Vargas, agree with longterm AC. Will sign off, f/u as outpatient as scheduled, re-consult PRN. Qualifiers: Atrial fibrillation type: paroxysmal Qualified Code(s): I48.0 - Paroxysmal atrial fibrillation (2) SVT (supraventricular tachycardia) Current Visit: Yes Status: Acute Per Cardiology: Reports past hx of SVT in 07/2016 only and previous consult last week for recurrent SVT resolved with Adenosine in setting of bronchitis/UTI. No recurrence noted with increased dose of Cardizem CD to 360mg PO daily and now Lopressor 12.5mg PO BID. Has oupatient f/u scheduled with EP. (3) Ventricular tachycardia Current Visit: Yes Status: Acute Per Cardiology: 15 beat VT noted on tele. Electrolytes stable. S/p C with no significant lesions per Dr. Barber. Now on CCB and BB-- will increase Loprerssor 25mg PO BID. (4) Coronary artery disease Current Visit: Yes Status: Chronic Per Cardiology: Hx of CAD. Last [facility] 12/13/13: severe 1v CAD; successful JOSELYN to mOM2; otherwise mild, non-obstructive CAD; 30% mLAD; 30% mRCA; EF 65% Continue asa and bb. Documented intolerance to statins d/t muscle pain. Troponins negative x 3, no acute ST changes. Patient with concerns for CAD. Inquiry into [facility]. Patient with SVT, 15 beat VT noted, and now PAF. Discussed with Dr. Vargas and [facility] today. Was able to tolerate laying flat. Cath completed with no lesions requiring intervention. Continue with medical management. Qualifiers: Coronary Disease-Associated Artery/Lesion type: [place] artery [place] vs. transplanted heart: [place] heart Associated angina: angina presence unspecified Qualified Code(s): I25.10 - Atherosclerotic heart disease of [place] coronary artery without angina pectoris (5) Acute exacerbation of COPD with asthma Current Visit: Yes Status: Acute Per Cardiology: Management per primary team. H/o asthma since she was a child. Will switch nebs to Xopenex since having SVT and PAF. Nebs possibly contributing to SVT/PAF. (6) Acute on chronic diastolic heart failure Current Visit: Yes Status: Acute Per Cardiology: Hx of mild diastolix dysfxn on echo 07/2016, Ef 60%, mild-mod MR. C/o BLE edema since July and 30-40 lb wt gain over last several months. Increasing SOB, also treated for bronchitis. CXR - No focal airspace disease. BNP only 42 on arrival. Has been receiving IV Lasix 80mg TID. According to medical records net negative during hospital stay -7630ml, however weight only down 2 to 2.5 kg according to records. Patient reports clinically improved with swelling. Consider converting to PO lasix. Monitor kidney function closely with lasix and s/p LHC. Discussion w patient/family: The assessment and plan as outlined above was discussed with the patient and/or family members who expressed understanding and agreement. All questions were answered. Thank you for involving us in the care of your patient. Please call with any questions. Subjective Principal diagnosis: SVT, COPD exacerbation, Reconsult for PAF Interval history: Patient reports overall her lower extremity edema has dramatically improved her hospital stay. She reports occasional chest palpitations and tightness. She reports prior to previous stenting she experienced severe dyspnea on exertion. She reports still experiencing severe dyspnea on exertion prior to arrival. Denies any known hx of afib. Reports had SVT in 07/2016. Last LHC in 2013. Objective Vital Signs, Last 4 Hours Temp Pulse Resp BP Pulse Ox 10/04/16 07:58 97.8 F 95 18 120/74 95 General: Conversant HEENT: Atraumatic, Normocephaly Cardiac: Reg Rate and Rhythm, Normal S1 and S2, No Murmur Lungs: Normal Breath Sounds, No Wheeze, Rales, Rhonchi, Other (Diminished bilateral bases) Neuro: Alert and responsive, No focal deficits noted Abdomen: Soft, Non-Tender, Other (Obese) Skin: No rashes noted on visualized skin Musculoskeletal: No Chest Wall Tenderness Extremities: Normal Pulses, Other (Trace bilateral lower extremity pitting edema ) Results 10/04/16 04:09 10/04/16 04:09 Lab Results Laboratory Tests 09/28/16 09/28/16 09/29/16 01:09 07:14 13:05 Potassium Magnesium Troponin I 0.03 0.03 0.01 10/04/16 04:09 Potassium 4.1 Magnesium 2.0 Troponin I ITS Impressions Chest X-Ray 09/27/16 15:53 IMPRESSION: 1. No focal airspace disease identified. D/ / Anastacio Butcher MD / Anastacio Butcher MD Interpreting Provider: Anastacio Butcher MD Active Medications Acetaminophen (Tylenol) 650 mg PO Q6HR PRN PRN Reason: Mild Pain (1-3) Stop: 03/29/17 21:50 Last Admin: 10/02/16 11:31 Dose: 650 mg Acetaminophen/Hydrocodone Bitart ([place] 5-325 Mg) 1 tab PO Q6H PRN PRN Reason: Pain Stop: 03/29/17 21:47 Last Admin: 09/30/16 10:48 Dose: 1 tab Albuterol/Ipratropium (Duoneb) 3 ml IH [id number] BEATA PRN Reason: Protocol Stop: 03/29/17 22:01 Last Admin: 10/04/16 03:48 Dose: 3 ml Aspirin (Aspirin) 81 mg PO DAILY BEATA Stop: 03/30/17 09:01 Last Admin: 10/03/16 08:35 Dose: 81 mg Dextrose/Water (Dextrose 50% (Syg)) 25 ml IVP AD PRN PRN Reason: Hypoglycemia Stop: 03/31/17 06:35 Diltiazem HCl (Cardizem Cd) 360 mg PO DAILY BEATA Stop: 04/01/17 09:01 Last Admin: 10/03/16 08:34 Dose: 360 mg Enoxaparin Sodium (Lovenox) 40 mg SQ 0600 BEATA PRN Reason: Protocol Stop: 03/30/17 06:01 Last Admin: 10/04/16 05:47 Dose: 40 mg Fluticasone Propionate (Flonase) 100 mcg NS DAILY BEATA PRN Reason: Protocol Stop: 04/01/17 14:31 Last Admin: 10/03/16 08:36 Dose: 100 mcg Furosemide (Lasix) 40 mg IVP Q8H BEATA Stop: 04/04/17 13:16 Last Admin: 10/04/16 05:47 Dose: 40 mg Glucagon (Glucagen) 1 mg IM ONCE PRN PRN Reason: Hypoglycemia Stop: 03/31/17 06:35 Glucose (Gluctose) 15 gm PO ONCE PRN PRN Reason: Hypoglycemia Stop: 03/31/17 06:35 Glucose (Gluctose) 30 gm PO ONCE PRN PRN Reason: Hypoglycemia Stop: 03/31/17 06:35 Guaifenesin (Robitussin/Dm) 10 ml PO Q6H PRN PRN Reason: Cough Stop: 03/29/17 23:04 Guaifenesin (Mucinex) 600 mg PO BID [facility] Stop: 04/01/17 21:01 Last Admin: 10/03/16 21:17 Dose: 600 mg Dextrose (Dextrose 5%) 1,000 mls @ 100 mls/hr IV CONT PRN PRN Reason: HYPOGLYCEMIA Stop: 03/31/17 06:35 Insulin Human Lispro (Humalog) 0 units SQ TIDAC [facility] PRN Reason: Protocol Stop: 03/31/17 07:31 Last Admin: 10/03/16 17:38 Dose: 18 units Insulin Human Lispro (Humalog) 0 units SQ HS [facility] PRN Reason: Protocol Stop: 03/31/17 21:01 Last Admin: 10/03/16 21:20 Dose: 6 units Melatonin (Melatonin) 3 mg PO HS [facility] Stop: 03/31/17 21:01 Last Admin: 10/03/16 21:18 Dose: 3 mg Methylprednisolone (Solu-Medrol) 40 mg IVP DAILY [facility] Stop: 04/04/17 09:01 Last Admin: 10/03/16 10:31 Dose: 40 mg Metoprolol Tartrate (Lopressor) 12.5 mg PO BID [facility] Stop: 04/04/17 21:01 Last Admin: 10/03/16 21:18 Dose: 12.5 mg Naloxone HCl (Narcan) 0.4 mg IVP Q2MIN PRN PRN Reason: Opioid Reversal Stop: 03/29/17 21:50 Ondansetron HCl (Zofran) 4 mg IVP Q8HR PRN PRN Reason: Nausea And Vomiting Stop: 03/29/17 21:50 Last Admin: 09/27/16 22:15 Dose: 4 mg Oxycodone HCl (Roxicodone) 5 mg PO Q6HR PRN PRN Reason: Moderate Pain (4-6) Stop: 03/29/17 21:50 Pharmacy Profile Note (Patient Taking Own Medication) 1 each IH QAM BEATA Stop: 03/30/17 09:01 Last Admin: 10/03/16 08:52 Dose: Not Given Senna (Senna) 17.2 mg PO BID PRN PRN Reason: Constipation Stop: 04/04/17 21:52 Last Admin: 10/04/16 00:15 Dose: 17.2 mg Simethicone (Gas-X) 80 mg PO TID PRN PRN Reason: Dyspepsia Stop: 04/04/17 21:52 - Imaging and Cardiology Chest Xray: report reviewed Echo: report reviewed Cardiac cath: report reviewed - EKG Interpretation EKG results cardiology: personally reviewed (ECG from yesterday showed afib with controlled response), other (24 hr tele reviewed with avg HR 91, slowest 56 , 15 beat run of VT noted, no recurrent SVT, no afib noted on tele, SR with PACs ) Consult Discharge Plan - Plan Referrals: Toña Beck CNP [Partnered Physician] - Monica Chahal CNP [Primary Care Provider] - 10/05/16 1:30 pm <Nav Vargas - Last Filed: 10/04/16 13:09> Assessment and Plan Discussion w patient/family: The assessment and plan as outlined above was discussed with the patient and/or family members who expressed understanding and agreement. All questions were answered. Thank you for involving us in the care of your patient. Please call with any questions. Objective Vital Signs, Last 4 Hours Temp Pulse Resp BP Pulse Ox 10/04/16 12:56 97.8 F 76 16 122/69 92 L 10/04/16 12:47 97.8 F 76 16 120/70 92 L 10/04/16 12:07 97.8 F 76 16 124/67 92 L 10/04/16 12:00 97.8 F 95 12 120/74 95 Results 10/04/16 04:09 10/04/16 04:09 Lab Results 10/04/16 10/04/16 04:09 04:09 WBC 15.2 H D Hgb 14.8 Hct 43.3 Plt Count 270 Sodium 138 Potassium 4.1 Chloride 94 L Carbon Dioxide 30 H BUN 50 H Creatinine 0.89 Glucose 299 H Calcium 9.4 Magnesium 2.0
[2016-10-04] MEDS: Aspirin 81 MG TAB.CHEW PO SCH (09:08)
[2016-10-04] MEDS: Insulin LISPRO 300 UNITS/3 ML VIAL SQ SCH ×4 (09:08→22:00)
[2016-10-04] MEDS: Fluticasone Propionate Nasal 50 MCG/SPRAY BOTTLE NS SCH (09:09)
[2016-10-04] MEDS: MethylPREDNISolone 40 MG/ML VIAL IVP SCH (09:09)
[2016-10-04] MEDS: Diltiazem CD (24hr) 180 MG CAPSULE PO SCH (09:09)
--- NOTE | 2016-10-04 09:24 | Pre-Sedation Evaluation ---
Pre-sedation evaluation - Pre-sedation checklist Date of procedure: 10/04/16 Procedure: [facility] Recent Vitals: Last Vital Signs Temp 97.8 F 10/04/16 07:58 Pulse 95 10/04/16 07:58 Resp 18 10/04/16 07:58 BP 120/74 10/04/16 07:58 Pulse Ox 95 10/04/16 07:58 H&P (including ROS) documented in medical record: Yes Previous reaction to sedatives/anesthetics: No Dietary Status: NPO after Midnight Airway Assessment: Patient can open mouth completely, TMJ function normal ASA Classification *see protocol: CLASS II-Mild systemic disease Plan of Care: Pt appropriate candidate for procedure/moderate/conscious sedation , Risks/benefits of procedure/sedation discussed w/ patient/family
[2016-10-04] MEDS ORDERED: Levalbuterol Neb 1.25 MG/3 ML ONE (09:26)
[2016-10-04 10:03] LABS: Basophils % 0.1 %; Hematocrit 43.3 % (35.3-44.9); Hemoglobin 14.8 g/dL (11.5-15.4); Immature Granulocytes % 6.8 % (0-4); Lymphocytes % 8.9 %; Mean Corpuscular HGB Conc 34.2 g/dL (31.6-35.5); Mean Corpuscular Hemoglobin 29.9 pg (28.0-33.3); Mean Corpuscular Volume 87.5 fL (83.0-100.0); Mean Platelet Volume 10.6 fL (9.4-12.4); Monocytes % 6.2 %; Platelet Count 270 K/mcL (140-400); Red Blood Count 4.95 M/mcL (3.82-4.97); Red Cell Distribution Width 12.2 % (11.5-14.5)
[2016-10-04 10:04] LABS: Lymphocytes # 1.4 K/mcL (0.6-4.6); Monocytes # 0.9 K/mcL (0.0-1.3); Neutrophils # 11.9 K/mcL (1.6-8.9); Nucleated Red Blood Cells 0.1 /100 WBC (0)
[2016-10-04] MEDS: Levalbuterol Neb 0.63 MG/3 ML IH SCH ×3 (10:06→21:18)
[2016-10-04] MEDS ORDERED: *HR* Heparin 10,000 UNIT/10 ML VIAL ONE (10:35)
[2016-10-04] MEDS ORDERED: Heparin 1,000 UNITS/500 mL NS 500 ML ONE (10:35)
[2016-10-04] MEDS ORDERED: 0.9 % Sodium Chloride 2,000 ML ONE (10:35)
[2016-10-04 10:37] LABS: Toxic Granulation Present (Not Present)
[2016-10-04] MEDS ORDERED: Nitroglycerin 1,000 MCG/10 ML VIAL IV ONE (10:43)
[2016-10-04] MEDS ORDERED: Verapamil 5 MG/2 ML VIAL ONE (10:48)
[2016-10-04] MEDS ORDERED: *HR* Midazolam HCl 2 MG/2 ML VIAL ONE (10:55)
[2016-10-04] MEDS ORDERED: *HR* FentaNYL (PF) 100 MCG/2 ML VIAL ONE (10:55)
--- NOTE | 2016-10-04 11:38 | Internal Med Progress Note ---
<Rene Guido - Last Filed: 10/04/16 11:35> Date of Encounter: 10/04/16 Time of Encounter: 09:05 - Assessment and plan (1) Acute on chronic diastolic heart failure Current Visit: Yes Status: Ruled-out Assessment and plan: Etiology of exacerbation unclear. Most likely non compliance. She had recent echo on 07/18/16 that revealed Ef of 60% with mild diastolic dysfunction. She has a preserved EF. She is net negative 7 L since admission. renal function stable. Continue Lasix 40 mg IV Q8H. Strict I's and Os and fluid restriction. Daily weights. (2) Acute exacerbation of COPD with asthma Current Visit: Yes Status: Acute Assessment and plan: No history of tobacco abuse. However the patient has a history of Asthma since she was an . Continue Bronchodialaters. O2 as needed. continue prednisone. . she will need to resume home inhalers however she is on frequent Xopenex and Prednisone at this time. (3) Ventricular tachycardia Current Visit: Yes Status: Acute Assessment and plan: non sustained 15 beat run of V tach overnight while sleeping. discussed with cardiology Plan to have [facility] today to see if arrythmias could be related to ischemia. (4) SVT (supraventricular tachycardia) Current Visit: Yes Status: Acute Assessment and plan: Continue cardizem CD 360 mg PO per day. continue Metoprolol She will follow with cardiology. 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 [facility] today. (5) Acute bronchitis Current Visit: Yes Status: Acute Assessment and plan: as stated above. (6) Generalized weakness Current Visit: Yes Status: Acute Assessment and plan: PT/OT (7) Morbid obesity Current Visit: Yes Status: Acute Assessment and plan: strongly advise weight loss (8) Coronary artery disease Current Visit: Yes Status: Acute Assessment and plan: patient had severe one vessel disease and had JOSELYN placed to OMII in 2013. not currently on plavix. However she is well over 1 year. Continue ASA. Patient has a statin Allergy Qualifiers: Coronary Disease-Associated Artery/Lesion type: [place] artery [place] vs. transplanted heart: [place] heart Associated angina: angina presence unspecified Qualified Code(s): I25.10 - Atherosclerotic heart disease of [place] coronary artery without angina pectoris (9) Atrial fibrillation Current Visit: Yes Status: Acute Assessment and plan: New onset. CHADSVASC score of 6 ( age/CHF/HTN/Gender/DM/CAD) HAS BLED score of 2 continue metoprolol and Cardizem for rate control. Discussed risks and benefits of anticoagulation. She would prefer Xarelto if possible. I have discussed with SW and will bueno check. Will not start today as she is going for [facility]. (10) Diabetes Current Visit: Yes Status: Acute Assessment and plan: Hg A1C 6.9 continue sliding scale insulin. Still above goal on high dose sliding scale. On steroids but also non compliant with diet ( noted patient drinking soda) May need to add preprandial insulin as well. can start on metformin when discharged. should be reevaluated once she is off of steroids. Qualifiers: Diabetes mellitus type: type 2 (11) DVT prophylaxis Current Visit: Yes Status: Acute Assessment and plan: continue SQ lovenox until Xarelto is started. - Subjective Interval history: The zoey had a 15 beat run of V tach over night. Her urinary catheter was placed again overnight by night physicians as she was having difficulty getting to the bedside commode. Otherwise no major events. This AM she states that she is feeling some better. she states that she is breathing more easily but still has difficulty " getting all the junk up". She denies any chest pain, syncope, presyncope. She denies any abdominal pain. She is eating and drinking well. She has no further complaints or concerns at this time. - Constitutional Vitals: Temp Pulse Resp BP Pulse Ox 97.8 F 95 18 120/74 95 10/04/16 07:58 10/04/16 07:58 10/04/16 07:58 10/04/16 07:58 10/04/16 07:58 General appearance: Present: A&O X 3, morbidly obese, pleasant, no acute distress, obese - Head Head exam: Present: atraumatic, normocephalic - Eye Eye exam: Present: PERRL, conjuntiva pink, sclera anicteric Pupils: Present: PERRL - Neck Neck exam general surgery: Present: supple, trachea midline. Absent: lymphadenopathy - Respiratory Respiratory exam: Present: rhonchi. Absent: accessory muscle use, rales Additional comments: she has bilateral rhonchi, she has mild crackles at the bases - Cardiovascular Cardiovascular exam: Present: irregular rhythm, +S1, +S2, tachycardia. Absent: diastolic murmur, gallop, rubs, systolic murmur - GI/Abdominal GI/Abdominal exam: Present: normal bowel sounds, soft, no peritoneal signs. Absent: distended, tenderness - Extremities Exam Extremities exam: Present: pedal edema (2+ to the level of the knee), warm, radial pulses palpable and symetrical. Absent: calf tenderness, cyanotic - Skin Skin exam: Present: dry, intact Internal Medicine: Result - Labs CBC & Chem 7: 10/04/16 04:09 10/04/16 04:09 Labs: Short CBC 10/04/16 Range/Units 04:09 WBC 15.2 H D (4.3-11.1) K/mcL Hgb 14.8 (11.5-15.4) g/dL Hct 43.3 (35.3-44.9) % Plt Count 270 (140-400) K/mcL Neutrophils # 11.9 H (1.6-8.9) K/mcL BMP 10/04/16 04:09 Sodium 138 Potassium 4.1 Chloride 94 L Carbon Dioxide 30 H BUN 50 H Creatinine 0.89 Glucose 299 H Calcium 9.4 Consult Discharge Plan - Plan Referrals: Toañ Beck CNP [Partnered Physician] - Monica Chahal CNP [Primary Care Provider] - 10/05/16 1:30 pm <Chet Urena H - Last Filed: 10/04/16 12:56> - Constitutional Vitals: Temp Pulse Resp BP Pulse Ox 97.8 F 76 16 124/67 92 L 10/04/16 12:07 10/04/16 12:07 10/04/16 12:07 10/04/16 12:07 10/04/16 12:07 Internal Medicine: Result - Labs CBC & Chem 7: 10/04/16 04:09 10/04/16 04:09 Labs: Short CBC 10/04/16 Range/Units 04:09 WBC 15.2 H D (4.3-11.1) K/mcL Hgb 14.8 (11.5-15.4) g/dL Hct 43.3 (35.3-44.9) % Plt Count 270 (140-400) K/mcL Neutrophils # 11.9 H (1.6-8.9) K/mcL BMP 10/04/16 04:09 Sodium 138 Potassium 4.1 Chloride 94 L Carbon Dioxide 30 H BUN 50 H Creatinine 0.89 Glucose 299 H Calcium 9.4 - Attending Attestation cardiac catheterization today. Continue lasix ( less congested thatn yesterday ) Cardiology recommendations appreciated
--- NOTE | 2016-10-04 11:51 | Invasive Diagnostic Lab Proc ---
Name: Aixa Golden Date of Study: 10/04/2016 Date: 1950 Ht: 61.8in Medical Record#: [id number] Age: 66 Wt: 284.40lb Gender: Female BSA: 2.22 Order #: [id number] BMI: 52.33 Physicians Procedure Physician: Bartolome Barber MD, FACC Referring MD: Referring MD: Staff Name Position Time In Carlene Martinez RT Scrub 11:00 AM Hermelinda Turner RN Monitor 11:00 AM Purnima Bee RN Hotel Server 11:00 AM Indications Indication Coronary Artery Disease Procedures Performed Procedure L HRT ARTERY/VENTRICLE ANGIO Pre-Procedure Checklist Informed consent is complete signed and on chart. H\\T\\P is on chart. ID band is on and ID verified with patient. Patient NPO for procedure The procedure was described for the patient and questions were answered. ECG is on chart. Rhythm: Sinus Arrhythmia Plan of Care Patient will tolerate the procedure without complications. Adequate level of comfort will be maintained. Hemodynamics will remain stable Patient will recover from procedure without complications. Respiratory function will be maintained. Cardiac rhythm will remain stable. Patient temperature will be maintained. Patient and/or family have verbalized understanding of the procedure. Patient Education Intravenous Access Time IV Size Location DC'd Fluid/Drip Rate Units RN 10:50 AM 20g 1 1/4" Patent On Arrival Lt Arm 0.9NaCl 25 ml/hr Hermelinda Turner RN 10:50 AM 20g 1 1/4" Patent On Arrival Rt Arm Yes Allergies levaquin nitrofurantoin egg Penicillins Sulfa (Sulfonamide Antibiotics) levofloxacin prednisone Vital Signs Time BP (mmHg) HR (bpm) O2 Sat. RR (bpm) LOC 11:00 AM / % 5 = Fully awake and oriented or at pre-proc level 11:00 AM / % 4 = Oriented but drowsy 11:16 AM / % 4 = Oriented but drowsy 11:04 AM 134 / 102 80 92 % 9 Procedural Medications Time Medication Dose Units Method Given By 11:00 AM Oxygen 2 L/min nasal cannula Purnima Bee RN 11:05 AM Versed 1 mg Intravenous Purnima Bee RN 11:05 AM Fentanyl 50 mcg Intravenous Purnima Bee RN 11:09 AM Oxygen 6 L/min nasal cannula Purnima Bee RN 11:15 AM Versed 1 mg Intravenous Purnima Bee RN 11:22 AM Lidocaine 2% 0.5 ml Subcutaneous Bartolome Barber MD, [facility] 11:24 AM Heparin 4000 units Nitroglycerin 200 mcg Verapamil 2.5 mg Intraarterial Bartolome Barber MD, [facility] ASA Classification: CLASS II- Mild systemic disease (i.e. well-controlled diabetes, hypertension, asthma, cigarette smoking) Kofi Score Preprocedure Postprocedure Activity 2- Moves 4 extremities sustained head lift Activity 2- Moves 4 extremities sustained head lift Circulation 2- SBP +/= 20 points of pre-anesthetic level Circulation 2- SBP +/= 20 points of pre-anesthetic level Consciousness 2- Awake and alert oriented x 3 Consciousness 2- Awake and alert oriented x 3 O2 Saturation 2- Able to maintain O2 satruation of 92% on room air O2 Saturation 2- Able to maintain O2 satruation of 92% on room air Respiratory 2- Able to deep breathe and cough well Respiratory 2- Able to deep breathe and cough well Total Score 10 Total Score 10 Contrast Agent: Isovue Total Contrast: 51 ml Fluoro Dose: 286 mGy Procedure Log Time Note Enter By 10:59 AM Pt 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 well-controlled diabetes, hypertension, asthma, cigarette smoking) scoates 10:59 AM Meet and greet completed scoates 10:59 AM Sign in performed according to hospital policy. scoates 10:59 AM Procedure start 10:59 scoates 11:00 AM Time: 11:00 Oxygen on at 2 L/min per nasal cannula by Purnima Bee RN scoates 11:00 AM Carlene Martinez RT Position: Scrub Time in: 11:00 scoates 11:00 AM Hermelinda Turner RN Position: Monitor Time in: 11:00 scoates 11:00 AM Purnima Bee RN Position: Hotel Server Time in: 11:00 scoates 11:00 AM Patient charges- Angio tray pack, Navilyst 3mm J, Pulse Oximetry and ACIST tubing and transducer scoates 11:00 AM Case Delayed No scoates 11:00 AM Hair removed from procedure site in procedure lab using clippers. Right wrist prepped with Chloraprep by Purnima Bee RN then patient draped. Skin intact. scoates 11:00 AM Time: 11:00 Patient comfortable and pain free: Yes scoates 11:00 AM Time: 11:00LOC: 5 = Fully awake and oriented or at pre-proc level scoates 11:02 AM CathStat 11:03 AM NIBP STAT measurement started. 11:04 AM HR=80 bpm, ANMT=182/102 mmhg, SpO2=92.0 %, Resp=9 B/min, Comment=nsr 11:05 AM Time: 11: Versed 1 mg Intravenous Given by Purnima Bee RN scoates 11: AM Time: 11: Fentanyl 50 mcg Intravenous Given by Purnima Bee RN scoates 11:08 AM Clinical Presentation: Unstable angina scoates 11: AM Time: 11:09 Oxygen on at 6 L/min per nasal cannula by Purnima Bee RN scoates 11: AM Pressure channel 1 zero failed. 11:15 AM Time: 11:15 Versed 1 mg Intravenous Given by Purnima Bee RN scoates 11:15 AM Time: 11:00 Patient comfortable and pain free: Yes scoates 11:16 AM Time: :LOC: 4 = Oriented but drowsy scoates 11:16 AM IV discontinued by RT Sana d/t placement interfering with radial access and vasc band. Catheter tip intact, dressing applied scoates 11:22 AM Time out performed according to hospital policy scoates 11:22 AM Time: : 0.5 ml Lidocaine 2% to right radial Subcutaneous Given by Bartolome Barber MD, [facility] scoates 11:24 AM Access obtained by percutaneous puncture. 6Fr 11cm Terumo Glidesheath sheath placed in right Radial artery. [id number] scoates 11:24 AM Time: :24 Patient given 4,000 units Heparin, 200 mcg Nitroglycerin, and 2.5 mg Verapamil Intraarterial by Bartolome Barber MD, [facility] scoates 11:24 AM 5Fr TIG catheter inserted over the wire [facility] scoates 11:26 AM LCA angiography performed in multiple views. scoates 11:26 AM Recorded Pressure: Ao, HR=83, Condition=Condition 1 (Aorta) Ao 110/81/95 11:27 AM catheter repositioned to the RCA scoates 11:27 AM Lesion found in Mid LAD. Pre Stenosis: 30 Pre WEST Flow: scoates 11:27 AM Lesion found in Mid Circumflex. Pre Stenosis: 40 Pre WEST Flow: scoates 11:28 AM Coronary Dominance: right scoates 11:28 AM RCA angiography performed in multiple views. scoates 11:28 AM Recorded Pressure: Ao, HR=77, Condition=Condition 1 (Aorta) Ao 124/89/107 11:29 AM Lesion found in Mid RCA. Pre Stenosis: 30 Pre WEST Flow: scoates 11:29 AM Catheter removed scoates 11:29 AM 5Fr Pigtail catheter inserted over the wire DNC scoates 11:30 AM Recorded Pressure: LV, HR=82, Condition=Condition 1 (Left Ventricle) LV 136/57/61 11:31 AM Time: 11:15 Patient comfortable and pain free: Yes scoates 11:31 AM Time: 11:16LOC: 4 = Oriented but drowsy scoates 11:31 AM Catheter selectively placed in left ventricle scoates 11:31 AM Recorded Pressure: LV, Ao, HR=81, Condition=Condition 1 (Left Ventricle) LV 139/19/63, (Aorta) Ao 140/68/104 11:31 AM Bolus angiogram of left Ventricle complete: 10 ml/sec for a total of 20 mls scoates 11:32 AM Catheter removed scoates 11:32 AM Procedure completed at 11:32 scoates 11:33 AM Sign out completed: Radiation Dose 286 mGy Fluoro Time: 2.4 Isovue 370 - 200ml contrast 51 ml given by Bartolome Barber MD, [facility]. Complications: NoneCardiac Rehab Consult needed: NoConfirmed administered medications: Yes scoates 11:33 AM Isovue 370 - 200ml,1 Bottle(s) used. scoates 11:33 AM Arterial sheath pulled, Vasc Band closure device used and was Successful S/N. scoates 11:34 AM 10 ml air in Vasc Band. scoates 11:34 AM Post ECG Sinus Arrhythmia scoates 11:34 AM Post Blood Pressure 134/102 scoates 11:35 AM 11:34 Post Pulses Rt Radial 1+ scoates 11:35 AM Information taught Cardiac Cath and Vasc Band scoates 11:35 AM Education needs Procedure, Plan of Care, and Responsibilities of Patient in Care scoates 11:35 AM Learning barriers :None scoates 11:35 AM Education Methods Verbal scoates 11:35 AM Education evaluation Able to repeat information scoates 11:35 AM Site status No bleeding/hematoma - Rt Arm as reported by Carlene Martinez RT at 11:35 scoates 11:35 AM Plavix, Effient or Brilinta given No scoates 11:35 AM Delay to floor No scoates 11:36 AM family didnt come down with patient. Magnetic Testing Technician or rounding physician will speak with them scoates 11:38 AM Report given to Aric PATEL Pt taken to E Room #23. 11:37 scoates 11:38 AM Complications: None scoates 11:38 AM Fluoro Time: 2.4 scoates 11:38 AM Isovue 370 - 200ml contrast ml given by Bartolome Barber MD, [facility]. scoates 11:38 AM Mid/Distal Left Anterior Descending Coronary Artery and diagonal branches with 30% stenosis. If graft is supplying this area, 0 % stenosis scoates 11:38 AM Circumflex, Obtuse Marginal, Left Posterior Descending, and Left Posterolateral Coronary Arteries with 40 % stenosis. If graft is supplying this area, 0 % stenosis scoates 11:38 AM Right Coronary, Right Posterior Descending Arteries with Right Posterolateral and Acute Marginal branches with 30 % stenosis. If graft is supplying this area, 0 % stenosis scoates 11:42 AM Patient out of room: 11:42 scoates Complications Complication None None Hemodynamics Pressures Site Systolic/A Wave Diastolic/V Wave Mean AO 110 81 95 AO 124 89 107 LV 136 57 61 LV 139 19 63 AO 140 68 104 Post Procedure Information Blood Pressure: 134/102 mmHg Rhythm: Sinus Arrhythmia Post procedural instructions were given Closure Device Time Device Success/Fail 10/04/2016 11:35:00 AM Mechanical Compression Successful Site Checks Time Location Status Staff Sheath In? Note 11:35 AM Rt Arm No bleeding/hematoma Carlene Martinez RT Pulses Time Site Pre-Procedure Post-Procedure Note 10/04/2016 10:51:00 AM Bilateral DP \\T\\ PT 1+ 10/04/2016 10:51:00 AM Bilateral radial 2+ 11:34:00 AM Rt Radial 1+ Updated by Hermelinda Bhandari RN on 10/04/2016 11:45:19 AM electronically signed on 10/04/2016 11:46:17 AM with status of Final
[2016-10-04] MEDS ORDERED: Ipratropium/Albuterol Neb 3 ML ONE (19:37)
[2016-10-04] MEDS: Melatonin 3 MG TABLET PO SCH (21:59)
[2016-10-05] MEDS: Levalbuterol Neb 0.63 MG/3 ML IH SCH ×4 (03:43→22:07)
[2016-10-05] MEDS: *HR* Enoxaparin 40 MG/0.4 ML SYRINGE SQ SCH (06:29)
[2016-10-05] MEDS: Furosemide 40 MG/4 ML VIAL IVP SCH ×3 (06:29→20:44)
[2016-10-05] MEDS: Fluticasone Propionate Nasal 50 MCG/SPRAY BOTTLE NS SCH (09:40)
[2016-10-05] MEDS: MethylPREDNISolone 40 MG/ML VIAL IVP SCH (09:40)
[2016-10-05] MEDS: Diltiazem CD (24hr) 180 MG CAPSULE PO SCH (09:41)
[2016-10-05] MEDS: Insulin LISPRO 300 UNITS/3 ML VIAL SQ SCH ×4 (09:41→20:46)
[2016-10-05] MEDS: Aspirin 81 MG TAB.CHEW PO SCH (09:41)
[2016-10-05] MEDS: Ondansetron 4 MG/2 ML VIAL IVP PRN (09:41)
[2016-10-05] MEDS: Sennosides 8.6 MG TABLET PO PRN (11:57)
--- NOTE | 2016-10-05 17:44 | Electrocardiograph Report ---
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
--- NOTE | 2016-10-05 19:25 | Internal Med Progress Note ---
Date of Encounter: 10/05/16 Time of Encounter: 11:00 - Assessment and plan (1) Nausea Current Visit: Yes Status: Acute Assessment and plan: Will treat with antiemetics today. Anticipate d/c tomorrow. (2) Acute on chronic diastolic heart failure Current Visit: Yes Status: Acute Assessment and plan: Seems to be doing OK today. Less dyspnea. Will continue current medications. (3) Acute exacerbation of COPD with asthma Current Visit: Yes Status: Acute Assessment and plan: Currently on IV steroids only daily. Dyspneic with movement. Continue current medicines today. (4) Atrial fibrillation Current Visit: Yes Status: Acute Assessment and plan: New onset. CHADSVASC score of 6 ( age/CHF/HTN/Gender/DM/CAD) HAS BLED score of 2 continue metoprolol and Cardizem for rate control. Discussed risks and benefits of anticoagulation. Plan for anticoagulation at discharge. Qualifiers: Atrial fibrillation type: paroxysmal Qualified Code(s): I48.0 - Paroxysmal atrial fibrillation (5) Coronary artery disease Current Visit: Yes Status: Chronic Assessment and plan: Continue ASA. Qualifiers: Coronary Disease-Associated Artery/Lesion type: [place] artery [place] vs. transplanted heart: [place] heart Associated angina: angina presence unspecified Qualified Code(s): I25.10 - Atherosclerotic heart disease of [place] coronary artery without angina pectoris (6) Morbid obesity Current Visit: Yes Status: Acute Assessment and plan: strongly advise weight loss Qualifiers: Obesity type: due to excess calories Qualified Code(s): E66.01 - Morbid ( severe) obesity due to excess calories (7) Generalized weakness Current Visit: Yes Status: Acute Assessment and plan: PT/OT (8) Diabetes Current Visit: Yes Status: Acute Assessment and plan: Hg A1C 6.9 continue sliding scale insulin. 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 Golden is currently admitted for acute on chronic diastolic heart failure and COPD with asthma. She remains moderate risk due to potential for worsening respiratory symptoms. Ms. Golden feels nauseated and weak today. She got up to ambulate but did not go far. No pain. No dyspnea. No fever or chills. - Constitutional Vitals: Temp Pulse Resp BP Pulse Ox 97.5 F L 71 19 136/91 93 L 10/05/16 16:27 10/05/16 16:27 10/05/16 16:27 10/05/16 16:27 10/05/16 16:27 General appearance: Present: A&O X 3, morbidly obese, answers questions appropriately - Head Head exam: Present: normocephalic - Eye Eye exam: Present: conjuntiva pink - ENT ENT exam: Present: mucous membranes dry - Respiratory Respiratory exam: Present: decreased breath sounds, CTAB - Cardiovascular Cardiovascular exam: Present: RRR. Absent: tachycardia - GI/Abdominal GI/Abdominal exam: Present: soft. Absent: mass, tenderness - Extremities Exam Extremities exam: Present: warm. Absent: tenderness - Neurological Exam Neurological exam: Present: alert, oriented X3 - Skin Skin exam: Present: dry, normal color, warm. Absent: rash Internal Medicine: Result - Labs CBC & Chem 7: 10/04/16 04:09 10/04/16 04:09 Consult Discharge Plan - Plan Referrals: Toña Beck CNP [Partnered Physician] - 10/20/16 10:00 am Monica Chahal CNP [Primary Care Provider] - 10/05/16 1:30 pm
[2016-10-05] MEDS: Melatonin 3 MG TABLET PO SCH (20:44)
[2016-10-06] MEDS: Levalbuterol Neb 0.63 MG/3 ML IH SCH ×4 (03:49→22:20)
[2016-10-06] MEDS: *HR* Enoxaparin 40 MG/0.4 ML SYRINGE SQ SCH (05:44)
[2016-10-06] MEDS: Furosemide 40 MG/4 ML VIAL IVP SCH ×2 (05:44→16:53)
[2016-10-06] MEDS: Fluticasone Propionate Nasal 50 MCG/SPRAY BOTTLE NS SCH (09:11)
[2016-10-06] MEDS: Diltiazem CD (24hr) 180 MG CAPSULE PO SCH (09:12)
[2016-10-06] MEDS: Insulin LISPRO 300 UNITS/3 ML VIAL SQ SCH ×4 (09:12→21:57)
[2016-10-06] MEDS: Sennosides 8.6 MG TABLET PO PRN (09:12)
[2016-10-06] MEDS: Aspirin 81 MG TAB.CHEW PO SCH (09:12)
[2016-10-06] MEDS: MethylPREDNISolone 40 MG/ML VIAL IVP SCH (09:13)
[2016-10-06] MEDS: Ondansetron 4 MG/2 ML VIAL IVP PRN (09:25)
--- NOTE | 2016-10-06 13:40 | Internal Med Progress Note ---
<AmanAkash oleary - Last Filed: 10/06/16 13:37> Date of Encounter: 10/06/16 Time of Encounter: 13:37 - Assessment and plan (1) Acute exacerbation of COPD with asthma Current Visit: Yes Status: Acute Assessment and plan: Patient still has shortness of breath particularly on exertion. Currently on IV steroids daily. Patient will likely need home oxygen at discharge. Continue bronchodilators. (2) Acute on chronic diastolic heart failure Current Visit: Yes Status: Acute Assessment and plan: Symptomatically improved. We will continue with diuresis but will continue to cut back Lasix. (3) Atrial fibrillation Current Visit: Yes Status: Acute Assessment and plan: New onset. Rate controlled at this time CHADSVASC score of 6 ( age/CHF/HTN/Gender/DM/CAD) HAS BLED score of 2 Discussed risks and benefits of anticoagulation will initiate Xarelto. Qualifiers: Atrial fibrillation type: paroxysmal Qualified Code(s): I48.0 - Paroxysmal atrial fibrillation (4) Diabetes Current Visit: Yes Status: Acute Assessment and plan: Hyperglycemic likely related to steroid use. Will add basal insulin. Qualifiers: Diabetes mellitus type: type 2 Diabetes mellitus complication status: with hyperglycemia Diabetes mellitus long-term insulin use: without long-term use Qualified Code(s): E11.65 - Type 2 diabetes mellitus with hyperglycemia (5) Generalized weakness Current Visit: Yes Status: Acute Assessment and plan: Continue to work with PT and OT and encourage ambulation. Inpatient rehabilitation was recommended to the patient however she refuses. (6) Nausea Current Visit: Yes Status: Acute Assessment and plan: Controlled with antiemetics today. Patient also had significant constipation. We will add MiraLAX. (7) Morbid obesity Current Visit: Yes Status: Acute Assessment and plan: Continue to strongly advise weight loss Qualifiers: Obesity type: due to excess calories Qualified Code(s): E66.01 - Morbid ( severe) obesity due to excess calories (8) DVT prophylaxis Current Visit: Yes Status: Acute Assessment and plan: We will start xarelto - Subjective Interval history: Patient seen and examined at bedside. She states she feels slightly better, she states her dyspnea is slightly improved. Patient reports constipation with black bowel movement in the past week. Patient does report flatus. She is still not able to ambulate far. - Constitutional Vitals: Temp Pulse Resp BP Pulse Ox 98.1 F 64 16 115/72 93 L 10/06/16 07:14 10/06/16 11:34 10/06/16 11:34 10/06/16 11:34 10/06/16 11:34 General appearance: Present: A&O X 3, morbidly obese, answers questions appropriately - Respiratory Respiratory exam: Present: CTAB. Absent: rales, rhonchi, wheezes - Cardiovascular Cardiovascular exam: Present: irregular rhythm. Absent: gallop, rubs, systolic murmur, tachycardia - GI/Abdominal GI/Abdominal exam: Present: distended (mild), normal bowel sounds, soft. Absent : tenderness - Extremities Exam Extremities exam: Present: pedal edema (trace). Absent: calf tenderness, tenderness - Neurological Exam Neurological exam: Present: alert, CN II-XII intact, oriented X3, no focal deficits Internal Medicine: Result - Labs CBC & Chem 7: 10/04/16 04:09 10/04/16 04:09 Consult Discharge Plan - Plan Referrals: Carolyn Osorio CNP [Partnered Physician] - 10/12/16 10:00 am Norma Sandra MD [Partnered Physician] - 10/11/16 11:30 am Toña Beck CNP [Partnered Physician] - 10/20/16 10:00 am Monica Chahal CNP [Primary Care Provider] - 10/05/16 1:30 pm <Tod Piper - Last Filed: 10/06/16 18:35> - Assessment and plan (1) Constipation by delayed colonic transit Current Visit: Yes Status: Acute Assessment and plan: Meds given (2) Nausea Current Visit: Yes Status: Acute (3) Acute on chronic diastolic heart failure Current Visit: Yes Status: Acute (4) Acute exacerbation of COPD with asthma Current Visit: Yes Status: Acute (5) Atrial fibrillation Current Visit: Yes Status: Acute Qualifiers: Atrial fibrillation type: paroxysmal Qualified Code(s): I48.0 - Paroxysmal atrial fibrillation (6) Coronary artery disease Current Visit: Yes Status: Chronic Qualifiers: Coronary Disease-Associated Artery/Lesion type: [place] artery [place] vs. transplanted heart: [place] heart Associated angina: angina presence unspecified Qualified Code(s): I25.10 - Atherosclerotic heart disease of [place] coronary artery without angina pectoris (7) Morbid obesity Current Visit: Yes Status: Acute Qualifiers: Obesity type: due to excess calories Qualified Code(s): E66.01 - Morbid ( severe) obesity due to excess calories (8) Generalized weakness Current Visit: Yes Status: Acute (9) Diabetes Current Visit: Yes Status: Acute Qualifiers: Diabetes mellitus type: type 2 Diabetes mellitus complication status: with hyperglycemia Diabetes mellitus long-term insulin use: without facetor use Qualified Code(s): E11.65 - Type 2 diabetes mellitus with hyperglycemia - Constitutional Vitals: Temp Pulse Resp BP Pulse Ox 97.3 F L 85 16 130/80 93 L 10/06/16 15:51 10/06/16 15:51 10/06/16 15:51 10/06/16 15:51 10/06/16 15:51 Internal Medicine: Result - Labs CBC & Chem 7: 10/04/16 04:09 10/04/16 04:09 - Attending Attestation I examined this patient and my medical decision-making was reviewed with the Resident Physician on 10/06/16. I agree with the documented findings, disposition and treatment plan as described except to the extent set forth below. Ms. Golden is currently admitted for acute exac COPD and dysrhythmia. She remains moderate risk due to persistent respiratory symptoms. Ms. Golden continues to be dyspneic with movement. She has not had a BM in a number of days. No fever or chills. No other new acute issues. Exam Alert. Heart reg Lungs diminished but clear at this time. I/P 1. Acute exac COPD 2. SVT 3. Constipation Further diagnoses and plan as above.
[2016-10-06] MEDS ORDERED: *HR* Rivaroxaban 10 MG TABLET PO SCH (17:00)
[2016-10-06] MEDS ORDERED: Bisacodyl 10 MG RECTAL SUPPOSITORY RC ONE (18:27)
[2016-10-06] MEDS ORDERED: Insulin DETEMIR 100 UNIT/ML X5UNITS SQ SCH (21:00)
[2016-10-06] MEDS: Melatonin 3 MG TABLET PO SCH (21:56)
[2016-10-07 05:22] LABS: Basophils # 0.2 K/mcL (0.0-0.2); Basophils % 0.7 %; Hematocrit 40.8 % (35.3-44.9); Hemoglobin 14.3 g/dL (11.5-15.4); Immature Granulocytes % 7.3 % (0-4); Immature Platelets 4.6 % (1.1-6.1); Lymphocytes # 1.6 K/mcL (0.6-4.6); Lymphocytes % 7.8 %; Mean Corpuscular Hemoglobin 30.2 pg (28.0-33.3); Mean Corpuscular Volume 86.1 fL (83.0-100.0); Mean Platelet Volume 10.6 fL (9.4-12.4); Monocytes % 5.5 %; Neutrophils # 16.4 K/mcL (1.6-8.9); Platelet Count 234 K/mcL (140-400); Red Blood Count 4.74 M/mcL (3.82-4.97); Red Cell Distribution Width 11.9 % (11.5-14.5); Segmented Neutrophils % 78.7 %
[2016-10-07] MEDS: Levalbuterol Neb 0.63 MG/3 ML IH SCH ×3 (05:27→16:36)
[2016-10-07 05:29] LABS: Monocytes # 1.1 K/mcL (0.0-1.3)
[2016-10-07 06:44] LABS: Platelet Estimate Normal (Normal)
[2016-10-07 06:45] LABS: Toxic Granulation Present (Not Present)
[2016-10-07 07:02] LABS: Blood Urea Nitrogen 45 mg/dL (7-20); Carbon Dioxide 29 mEq/L (19-29); Chloride 93 mEq/L (98-109); Potassium 4.1 mEq/L (3.5-4.5); Sodium 136 mEq/L (136-145)
[2016-10-07 07:03] LABS: BUN/Creatinine Ratio 58 (6-26); Calcium 8.8 mg/dL (8.6-10.8); Glucose 256 mg/dL (70-99); Osmolality,Calculated 302 (280-300); eGFR For African Americans > 60 (> 60); eGFR For Non-African Americans > 60 (> 60)
[2016-10-07 08:11] VITALS: BP 111/65
[2016-10-07] MEDS: Insulin LISPRO 300 UNITS/3 ML VIAL SQ SCH ×2 (08:30→12:15)
[2016-10-07] MEDS: Furosemide 40 MG/4 ML VIAL IVP SCH (08:37)
[2016-10-07] MEDS ORDERED: predniSONE 20 MG TABLET PO SCH (09:00)
[2016-10-07] MEDS ORDERED: Furosemide 40 MG TABLET PO SCH (09:00)
--- NOTE | 2016-10-07 09:14 | Discharge Summary ---
<Akash Acosta - Last Filed: 10/07/16 13:16> Date of Encounter: 10/07/16 Time of Encounter: 09:06 - Discharge Diagnosis (1) Acute exacerbation of COPD with asthma Priority: Primary Status: Acute (2) Acute on chronic diastolic heart failure Priority: Primary Status: Acute (3) Atrial fibrillation Priority: Primary Status: Acute Qualifiers: Atrial fibrillation type: paroxysmal Qualified Code(s): I48.0 - Paroxysmal atrial fibrillation (4) Diabetes Priority: Secondary Status: Chronic Qualifiers: Diabetes mellitus type: type 2 Diabetes mellitus complication status: with hyperglycemia Diabetes mellitus residential insulin use: without cable former use Qualified Code(s): E11.65 - Type 2 diabetes mellitus with hyperglycemia (5) Generalized weakness Priority: Secondary Status: Chronic (6) Nausea Priority: Secondary Status: Chronic (7) Morbid obesity Priority: Secondary Status: Chronic Qualifiers: Obesity type: due to excess calories Qualified Code(s): E66.01 - Morbid ( severe) obesity due to excess calories - Discharge Medications Prescriptions: Albuterol Neb [AccuNeb] 0.63 mg IH Q6H PRN #120 inhsol PRN Reason: Shortness Of Breath Albuterol Sulfate [Ventolin Hfa] 2 puff IH Q4H PRN #2 hfa.aer.ad PRN Reason: Shortness Of Breath Aspirin 81 mg PO DAILY #30 tab.chew Cetirizine HCl 10 mg PO DAILY #30 tablet Diltiazem CD (24hr) [Cardizem CD] 360 mg PO DAILY 30 Days Fluticasone Propionate Nasal [Flonase] 50 mcg NS HS #1 bottle Fluticasone/Vilanterol [Breo Ellipta 100-25 Mcg INH] 1 puff IH QAM #1 blst.w.dev Furosemide [Lasix] 20 mg PO BID #60 tablet HYDROcodone/Acet 5/325 mg [[place] 5-325 mg] 1 tab PO Q6H PRN #20 tablet PRN Reason: Pain Metoprolol [Lopressor] 25 mg PO BID #60 tablet Potassium Chloride [K-Tab ER] 20 meq PO DAILY #30 tablet.er Rivaroxaban [Xarelto] 20 mg PO 1700 30 Days Home Medications: Biotin 1,000 mcg PO DAILY 07/13/16 [History] Multivit-Min/Iron Fum/Folic AC [Fbcpw-Fyilonm-Ekcputtl Tablet] 1 tab PO DAILY [History] Promethazine/Dextromethorphan [Promethazine-Dm Syrup] 5 ml PO Q6H PRN #120 ml [Rx] Albuterol Neb [AccuNeb] 0.63 mg IH Q6H PRN #120 inhsol 10/07/16 [Rx] Albuterol Sulfate [Ventolin Hfa] 2 puff IH Q4H PRN #2 hfa.aer.ad 10/07/16 [Rx] Aspirin 81 mg PO DAILY #30 tab.chew 10/07/16 [Rx] Cetirizine HCl 10 mg PO DAILY #30 tablet 10/07/16 [Rx] Diltiazem CD (24hr) [Cardizem CD] 360 mg PO DAILY 30 Days 10/07/16 [Rx] Fluticasone Propionate Nasal [Flonase] 50 mcg NS HS #1 bottle 10/07/16 [Rx] Fluticasone/Vilanterol [Breo Ellipta 100-25 Mcg INH] 1 puff IH QAM #1 blst.w.dev 10/07/16 [Rx] Furosemide [Lasix] 20 mg PO BID #60 tablet 10/07/16 [Rx] HYDROcodone/Acet 5/325 mg [[place] 5-325 mg] 1 tab PO Q6H PRN #20 tablet 10/07/16 [Rx] Metoprolol [Lopressor] 25 mg PO BID #60 tablet 10/07/16 [Rx] Patient Taking Own Medication 1 each IH QAM each 10/07/16 [Rx] Potassium Chloride [K-Tab ER] 20 meq PO DAILY #30 tablet.er 10/07/16 [Rx] Rivaroxaban [Xarelto] 20 mg PO 1700 30 Days 10/07/16 [Rx] Allergies/Adverse Reactions: Allergies levofloxacin [From Levaquin] Allergy (Verified 09/28/16 08:50) Hives Penicillins Allergy (Verified 09/28/16 08:50) Blister prednisone Allergy (Verified 09/28/16 08:50) See Comments all over swelling Sulfa (Sulfonamide Antibiotics) Allergy (Verified 09/28/16 08:50) Hives Banana Adverse Reaction (Severe, Verified 09/28/16 08:50) Blister egg Adverse Reaction (Severe, Verified 09/28/16 08:50) Throat swelling nitrofurantoin [From Macrobid] Adverse Reaction (Severe, Verified 09/28/16 08:50 ) Bruising on arms Procedures/tests Complete & Pending: Procedures Performed prior 72 hours Category Date Time Status CL Cardiac Catheterization [CL] Routine Clinical Lab Technologist 10/04/16 09:23 Ordered Date of admission: 09/28/16 00:15 Primary care physician: Monica Chahal CNP Consults: 09/29/16 12:51 Consult to Cardiology [CONS] Routine Comment: Consulting Provider: Cardiology Millicent Reason for Consult: SVT/Diastolic heart failure Call Completed: Yes 10/01/16 12:00 Consult to Respiratory Therapy [CONS] Routine Reason for Consult: Please provide patient with Flutter valve. Call Completed: No 10/02/16 14:36 Consult to Physical Therapy [CONS] Routine Comment: please reevaluate/needs after discharge. Pt. weake Discharging clinician: Akash Acosta Anticipated date of discharge: 10/07/16 - Patient Status Disposition: Home Health Service Condition: Good Overall status at discharge: patient is progressing back to baseline - Discharge Instructions Follow Up With: Carolyn Osorio CNP [Partnered Physician] - 10/12/16 10:00 am Norma Sandra MD [Partnered Physician] - 10/11/16 11:30 am Toña Beck CNP [Partnered Physician] - 10/20/16 10:00 am Monica Chahal CNP [Primary Care Provider] - 10/05/16 1:30 pm Additional Instructions: Please follow up with your primary care physician the next 1-2 weeks. Please follow up with cardiology as scheduled. Please restart her home medications as directed. Please begin new medications including Xarelto, metoprolol, and an increased dose of diltiazem. Please use your walker at all times. Please return for any new or worsening symptoms including chest pain, shortness of breath, bleeding, falls. - Diet and Activity Activity: ambulate only with your walker, wear oxygen at all times Diet: diabetic diet, low salt diet Interval History: Patient seen and examined at bedside. Patient states she feels better today. She states she still feels weak but otherwise has no complaints. She denies fever, chills, chest pain, dyspnea, palpitations. Hospital course: Ms. Golden is a 66 year old female with history of CHF, COPD who initially presented with complaints of weakness. She also had dysuria and had failed outpatient treatment. Patient's hospital course was complicated by an episode of supraventricular tachycardia that was treated with adenosine successfully. Patient also had episodes of paroxysmal A. fib and ventricular tachycardia. Given the multiple arrhythmias the patient underwent left heart catheterization that revealed no lesions. Post-catheter patient was remained rate controlled with occasional episodes of atrial fibrillation. The patient was initiated on Xarelto. Discharged to inpatient rehabilitation was strongly recommended to the patient but she refused multiple times. The risk of falls were discussed at length with the patient and the need for evaluation in the event of a fall given her recent initiation on anticoagulation. Patient verbalized understanding. He was also instructed to the patient that she use her walker at all times. Patient will be discharged home with home health in stable condition. - Time Spent with Patient Total time spent providing and/or coordinating discharge services: - Constitutional Vitals: Temp Pulse Resp BP Pulse Ox 97.8 F 75 16 111/65 95 10/07/16 07:00 10/07/16 07:00 10/07/16 07:00 10/07/16 07:00 10/07/16 07:00 General appearance: Present: A&O X 3, morbidly obese, answers questions appropriately - Respiratory Respiratory exam: Present: decreased breath sounds. Absent: rales, respiratory distress, rhonchi, wheezes, tachypnea - Cardiovascular Cardiovascular exam: Present: irregular rhythm. Absent: gallop, rubs, systolic murmur, tachycardia - GI/Abdominal GI/Abdominal exam: Present: normal bowel sounds, soft. Absent: distended, tenderness - Extremities Exam Extremities exam: Present: pedal edema (trace). Absent: tenderness - Neurological Exam Neurological exam: Present: alert, CN II-XII intact, oriented X3, no focal deficits <Tod Piper - Last Filed: 10/07/16 13:44> - Discharge Diagnosis (1) Acute on chronic diastolic heart failure Status: Acute (2) Acute exacerbation of COPD with asthma Status: Acute (3) Constipation by delayed colonic transit Priority: Secondary Status: Acute (4) Nausea Status: Chronic (5) Atrial fibrillation Status: Acute Qualifiers: Atrial fibrillation type: paroxysmal Qualified Code(s): I48.0 - Paroxysmal atrial fibrillation (6) Coronary artery disease Priority: Secondary Status: Chronic Qualifiers: Coronary Disease-Associated Artery/Lesion type: [place] artery [place] vs. transplanted heart: [place] heart Associated angina: angina presence unspecified Qualified Code(s): I25.10 - Atherosclerotic heart disease of [place] coronary artery without angina pectoris (7) Morbid obesity Status: Chronic Qualifiers: Obesity type: due to excess calories Qualified Code(s): E66.01 - Morbid ( severe) obesity due to excess calories (8) Generalized weakness Status: Chronic (9) Diabetes Status: Chronic Qualifiers: Diabetes mellitus type: type 2 Diabetes mellitus complication status: with hyperglycemia Diabetes mellitus cable former insulin use: without cable former use Qualified Code(s): E11.65 - Type 2 diabetes mellitus with hyperglycemia Date of admission: 09/28/16 00:15 Primary care physician: Monica Chahal CNP Consults: 09/29/16 12:51 Consult to Cardiology [CONS] Routine Comment: Consulting Provider: Cardiology Millicent Reason for Consult: SVT/Diastolic heart failure Call Completed: Yes 10/01/16 12:00 Consult to Respiratory Therapy [CONS] Routine Reason for Consult: Please provide patient with Flutter valve. Call Completed: No 10/02/16 14:36 Consult to Physical Therapy [CONS] Routine Comment: please reevaluate/needs after discharge. Pt. bertin Hospital course: Ms. Golden is a 66 year old female - Time Spent with Patient Total time spent providing and/or coordinating discharge services: 38min - Constitutional Vitals: Temp Pulse Resp BP Pulse Ox 97.8 F 75 16 111/65 95 10/07/16 09:00 10/07/16 09:00 10/07/16 09:00 10/07/16 09:00 10/07/16 09:00 - Attending Attestation I examined this patient and my medical decision-making was reviewed with the Resident Physician on 10/07/16. I agree with the documented findings, disposition and treatment plan as described except to the extent set forth below. Ms. Golden has been up some. She is doing somewhat better today. She is ready to go home today. Exam Alert. Comfortable Heart reg at this time Lungs diminished Plan D/C home with [facility] today. Follow up as outpatient.
[2016-10-07] MEDS: Aspirin 81 MG TAB.CHEW PO SCH (09:21)
[2016-10-07] MEDS: Diltiazem CD (24hr) 180 MG CAPSULE PO SCH (09:22)
[2016-10-07] MEDS: Fluticasone Propionate Nasal 50 MCG/SPRAY BOTTLE NS SCH (09:24)
--- NOTE | 2016-10-07 11:31 | Physician Discharge Referral ---
Home Health/Hosp Referral Info Transfer to: Home Health Provider in Charge Post Discharge: PCP - Diagnosis (1) Acute exacerbation of COPD with asthma Priority: Primary Status: Acute (2) Acute on chronic diastolic heart failure Priority: Primary Status: Acute (3) Atrial fibrillation Priority: Primary Status: Acute (4) Diabetes Priority: Secondary Status: Chronic (5) Generalized weakness Priority: Primary Status: Chronic (6) Nausea Priority: Secondary Status: Chronic (7) Morbid obesity Priority: Secondary Status: Chronic - Respiratory Orders Oxygen / L per min (3) Smoking Cessation: Smoking cessation has been advised. For more information, call the [place] Tobacco Quit Line at 9-012-HCMZ-NOW. - Diet/Nutrition Diet/Nutrition Orders: No Added Salt (JOSEPH), Cardiac - Activity Activity Orders: Walker - Services Needed Following services are medically necessary services: Home Health Aide, Physical Therapy, Occupational Therapy - Transfer Medications Prescriptions: Albuterol Neb [AccuNeb] 0.63 mg IH Q6H PRN #120 inhsol PRN Reason: Shortness Of Breath Albuterol Sulfate [Ventolin Hfa] 2 puff IH Q4H PRN #2 hfa.aer.ad PRN Reason: Shortness Of Breath Aspirin 81 mg PO DAILY #30 tab.chew Cetirizine HCl 10 mg PO DAILY #30 tablet Diltiazem CD (24hr) [Cardizem CD] 360 mg PO DAILY 30 Days Fluticasone Propionate Nasal [Flonase] 50 mcg NS HS #1 bottle Fluticasone/Vilanterol [Breo Ellipta 100-25 Mcg INH] 1 puff IH QAM #1 blst.w.dev Furosemide [Lasix] 20 mg PO BID #60 tablet HYDROcodone/Acet 5/325 mg [[place] 5-325 mg] 1 tab PO Q6H PRN #20 tablet PRN Reason: Pain Metoprolol [Lopressor] 25 mg PO BID #60 tablet Potassium Chloride [K-Tab ER] 20 meq PO DAILY #30 tablet.er Rivaroxaban [Xarelto] 20 mg PO 1700 30 Days Home Medications: Biotin 1,000 mcg PO DAILY 07/13/16 [History] Multivit-Min/Iron Fum/Folic AC [Kpcox-Pbdunfy-Qefbcwsh Tablet] 1 tab PO DAILY [History] Promethazine/Dextromethorphan [Promethazine-Dm Syrup] 5 ml PO Q6H PRN #120 ml [Rx] Albuterol Neb [AccuNeb] 0.63 mg IH Q6H PRN #120 inhsol 10/07/16 [Rx] Albuterol Sulfate [Ventolin Hfa] 2 puff IH Q4H PRN #2 hfa.aer.ad 10/07/16 [Rx] Aspirin 81 mg PO DAILY #30 tab.chew 10/07/16 [Rx] Cetirizine HCl 10 mg PO DAILY #30 tablet 10/07/16 [Rx] Diltiazem CD (24hr) [Cardizem CD] 360 mg PO DAILY 30 Days 10/07/16 [Rx] Fluticasone Propionate Nasal [Flonase] 50 mcg NS HS #1 bottle 10/07/16 [Rx] Fluticasone/Vilanterol [Breo Ellipta 100-25 Mcg INH] 1 puff IH QAM #1 blst.w.dev 10/07/16 [Rx] Furosemide [Lasix] 20 mg PO BID #60 tablet 10/07/16 [Rx] HYDROcodone/Acet 5/325 mg [[place] 5-325 mg] 1 tab PO Q6H PRN #20 tablet 10/07/16 [Rx] Metoprolol [Lopressor] 25 mg PO BID #60 tablet 10/07/16 [Rx] Patient Taking Own Medication 1 each IH QAM each 10/07/16 [Rx] Potassium Chloride [K-Tab ER] 20 meq PO DAILY #30 tablet.er 10/07/16 [Rx] Rivaroxaban [Xarelto] 20 mg PO 1700 30 Days 10/07/16 [Rx] Allergies/Adverse Reactions: Allergies levofloxacin [From Levaquin] Allergy (Verified 09/28/16 08:50) Hives Penicillins Allergy (Verified 09/28/16 08:50) Blister prednisone Allergy (Verified 09/28/16 08:50) See Comments all over swelling Sulfa (Sulfonamide Antibiotics) Allergy (Verified 09/28/16 08:50) Hives Banana Adverse Reaction (Severe, Verified 09/28/16 08:50) Blister egg Adverse Reaction (Severe, Verified 09/28/16 08:50) Throat swelling nitrofurantoin [From Macrobid] Adverse Reaction (Severe, Verified 09/28/16 08:50 ) Bruising on arms Certification: Further, I certify that my clinical findings support that this patient is homebound (i.e. absences from home require considerable and taxing effort and are for medical reasons or zoroastrianism services or infrequently or short duration when for other reasons) because: Homebound Reason: Patient requires assistance of a person or device to safely leave home, Leaving home requires considerable and taxing effort due to condition, Severity of cardiac or pulmonary status limits activity tolerance Attestation: My signature below is to certify that this patient is under my care and that I, or nurse practitioner, or a physician's recreational assistant working with me, has a face-to -face encounter with this patient.
--- NOTE | 2016-10-08 09:04 | Invasive Diagnostic Lab ---
Name: Aixa Golden Date of Study: 10/04/2016 Date: 1950 Ht: 157.0 cm /61.8 in Medical Record#: [id number] Age: 66 Wt: 129. kg / 284.40 lb Account/Order#: [id number] Gender: Female BSA: 2.22 Order #: [id number] Fluoro Dose: 286 mGy BMI: 52.33 Procedure Physician: Bartolome Barber MD, FACC Referring MD: Referring MD: Procedures Performed: LEFT HEART CATH Indications: Coronary Artery Disease, Angina Impressions: There is mild three vessel coronary artery disease. The left ventricle is normal and has normal contractility EF 65% Stent placed from a prior procedure in the 2nd Marginal is patent. Recommendations: Optimal medical therapy of patient's disease. Aggressive risk factor modification. Patient being referred for cardiac rehab. History/Risk Factors: Family History of CAD Previous PCI Procedure Access obtained in the right Radial artery by percutaneous puncture Complications: None, None Contrast: Isovue 51ml Closure Device: Mechanical Compression Hemodynamics: Pressures Site Systolic/ A Wave Diastolic/ V Wave End Diastolic/ Mean HR AO 110 81 95 83 AO 124 89 107 77 LV 136 57 61 82 LV 139 19 63 84 AO 140 68 104 77 LV Ventriculography Ejection Method: LV Gram Ejection Fraction: 65% Wall Motion: FARR Anterobasal Normal Anterolateral Normal Apical: Normal Inferoapical Normal Inferobasal Normal Coronary Dominance: right Lesion Findings/Interventions * Left Main Coronary Artery The LMCA is angiographically free of disease. * Left Anterior Descending There is a 30% stenosis in the Mid LAD. There is no stenosis in the proximal LAD. * Circumflex There is a 40% stenosis in the Mid Circumflex. Patent OM2 stent. * Right Coronary Artery There is a 30% stenosis in the Mid RCA. Updated by Hermelinda Bhandari RN on 10/04/2016 11:42:32 AM Bartolome Barber MD, FACC electronically signed on 10/08/2016 8:58:11 AM with status of Final
== END 2016-10-07 16:00 | disposition home health service (06) | DRG 287 ==
LOC: 3BNU 15:39 → EMEROO 15:39 → 3BNU 20:05 → SUATTDRO 09-28 00:15 → 2NENU 09-29 13:41
PROVIDERS: ADMIT Nurse Practitioner Family; ATTEND Internal Medicine

== ENCOUNTER 2016-12-12 21:51 | Inpatient (IN) ==
[2016-12-13] MEDS ORDERED: *HR* Digoxin 0.5 MG/2 ML AMPUL IVP ONE ×2 (01:30→03:38)
--- NOTE | 2016-12-13 01:44 | Internal Med History&Physical ---
Date of Encounter: 12/13/16 Time of Encounter: 01:43 Assessment and Plan (1) Atrial fibrillation with RVR Current visit: Yes Status: Acute Pt has history of paroxysmal atrial fibrillation and was on anticoagulation with Xarelto. Now in A fib with RVR - uncertain if this is driven by UTI / sepsis. Pt did not respond well to cardizem bolus. Patient did not tolerate diltiazem infusion due to borderline hypotension. Pt is given digoxin 250 mcg, with some response. Normal saline bolus 500 ml given. Cardiology consult for further advice. (2) UTI (urinary tract infection) Current visit: Yes Status: Acute Patient had multidrug-resistant Escherichia coli on previous cultures. Patient was given ceftriaxone in the emergency department. Prior cultures showed resistance to ceftriaxone - hence will start meropenem. Urine cultures sent from [facility]. Qualifiers: Urinary tract infection type: site unspecified Hematuria presence: without hematuria Qualified Code(s): N39.0 - Urinary tract infection, site not specified (3) Sepsis Current visit: Yes Status: Acute Likely due to UTI. Coutious IV fluid bolus, as the pt is volume overloaded. Started on meropenem. Qualifiers: Sepsis type: sepsis due to unspecified organism Qualified Code(s): A41.9 - Sepsis, unspecified organism (4) Dysphagia Current visit: Yes Status: Chronic Will consult speech therapy Qualifiers: Dysphagia type: unspecified Qualified Code(s): R13.10 - Dysphagia, unspecified (5) Hypoglycemia associated with diabetes Current visit: Yes Status: Acute Possibly due to poor oral intake. Pt needed IV D50 and oral supplements. Monitor glucose Q4H and follow hypoglycemia protocol. Hold home hypoglycemics (6) Leucocytosis Current visit: Yes Status: Acute Likely due to UTI Qualifiers: Leukocytosis type: unspecified Qualified Code(s): D72.829 - Elevated white blood cell count, unspecified (7) Anasarca Current visit: Yes Status: Acute Known diastolic CHF - apprently recently stopped lasix (8) Skin excoriation Current visit: Yes Status: Acute Wound care consult (9) Hypomagnesemia Current visit: Yes Status: Acute Replenish Magnesium IV (10) Lactic acidosis Current visit: Yes Status: Acute Likely due to UTI / sepsis versus poor peripheral perfusion. Monitor lactate levels (11) Chronic anticoagulation Current visit: Yes Status: Chronic Pt on xarelto - to continue (12) Morbid obesity with BMI of 50.0-59.9, adult Current visit: Yes Status: Chronic Supportive care Internal Medicine - H&P: HPI Chief complaint: Generalized weakness Admitted From: Emergency Dept Plans for Post Hospital Care: Transfer Intermediate Facility History of present illness: Ms. Golden is a 66 year old female with multiple medical comorbidities including asthma, COPD, morbid obesity, diastolic heart failure. She was admitted to this facility in September 2016 for generalized weakness. She was treated for UTI, supraventricular tachycardia, paroxysmal atrial fibrillation and ventricular tachycardia. She had left heart catheterization no significant lesions. She was initiated on Xarelto for anticoagulation for paroxysmal A fib. She is a resident of [facility]. She was taken to emergency department at the [facility], for poor oral intake, nausea and vomiting. She was noted to be in fibrillation with rapid ventricular response with heart rate of 140 bpm. She was given diltiazem bolus, with transient improvement of heart rate. She was also hypoglycemic with serum glucose of 37 - she was given D50. Urinalysis was positive for leukocyte esterase - was given ceftriaxone. She is transferred to the hospitalist service for further management. Patient reports generalized weakness for about a week and is gradually getting worse. She reports that she is not able to get out of the bed and is needing support with several people to get up. She reports poor appetite and nausea. She denies significant vomiting. she denies obstruction to the food bolus, but she doesnt feel like vomiting. She reports palpitations. She denies chest pain. She denies significant shortness of breath, cough, expectoration, fever, chills. She reports some suprapubic pain, dysuria, and back pain. Past Med Surg Social Fam HX - Past Medical History Medical history: arthritis, asthma, atrial fibrillation, CHF, COPD, diabetes, GERD Psychiatric history: anxiety, depression, panic disorder - Past Surgical History Surgical History: angioplasty/stent, hysterectomy - Social History Smoking Status: Never smoker Smokeless Tobacco Status: No Alcohol use: none Drug use: none - Family History Brother Living Status: Still Living Hx Family Cardiac Disorders: Yes (HTN) Hx Family Endocrine Disorder: Yes (Diabetes) Mother Living Status: Hx Family Cardiac Disorders: Yes (HTN) Hx Family Endocrine Disorder: Yes (Diabetes) Father Living Status: Hx Family Cardiac Disorders: Yes (CABG x3 HTN diabetes) Hx Family Respiratory Disorders: No Hx Family Cancer: No Hx Family GI Disorders: No Hx Family Endocrine Disorder: Yes Hx Family Neuromuscular Disorders: No Hx Family Neurologic Disorders: No Hx Family HEENT Disorders: No Hx Family Autoimmune Disorders: No Internal Medicine - H&P: Meds Albuterol Sulfate [Ventolin Hfa] 2 puff IH Q4H PRN 12/12/16 [History] Amaryl PO DAILY 12/12/16 [History] Aspirin 81 mg PO DAILY 12/12/16 [History] Budesonide/Formoterol 160/4.5 [Symbicort 160/4.5] 1 puff IH BIDR 12/12/16 [ History] Cetirizine HCl [All Day Allergy] 10 mg PO DAILY 12/12/16 [History] Diltiazem CD (24hr) [Cardizem CD] 300 mg PO DAILY 12/12/16 [History] HYDROcodone/Acet 5/325 mg [[place] 5-325 mg] 1 tab PO Q6H PRN 12/12/16 [History] LORazepam [Ativan] 0.5 mg PO Q6HR 12/12/16 [History] Levalbuterol Neb [Xopenex Neb] 0.63 mg IH Q6H PRN 12/12/16 [History] Levocetirizine Dihydrochloride [Xyzal] 5 mg PO DAILY 12/12/16 [History] Metoprolol Tartrate 25 mg PO BID 12/12/16 [History] Montelukast Sodium [Singulair] 10 mg PO DAILY 12/12/16 [History] Multivitamin [Multi-Day Vitamins] 1 each PO 12/12/16 [History] Nitroglycerin [Nitrostat] 0.4 mg SL 12/12/16 [History] Nystatin POWDER [Nystop] 1 appl TP BID 12/12/16 [History] Ondansetron HCl 4 mg PO Q6H 12/12/16 [History] Oxycodone HCl [OxyCODONE Oral Soln] 5 mg PO Q4H PRN 12/12/16 [History] Pantoprazole Sodium [Protonix] 40 mg PO DAILY 12/12/16 [History] Promethazine HCl 25 mg RC Q6H 12/12/16 [History] Rivaroxaban [Xarelto] 20 mg PO DAILY 12/12/16 [History] Allergies levofloxacin [From Levaquin] Allergy (Verified 09/28/16 08:50) Hives Penicillins Allergy (Verified 09/28/16 08:50) Blister prednisone Allergy (Verified 09/28/16 08:50) See Comments all over swelling Sulfa (Sulfonamide Antibiotics) Allergy (Verified 09/28/16 08:50) Hives Banana Adverse Reaction (Severe, Verified 09/28/16 08:50) Blister egg Adverse Reaction (Severe, Verified 09/28/16 08:50) Throat swelling nitrofurantoin [From Macrobid] Adverse Reaction (Severe, Verified 09/28/16 08:50 ) Bruising on arms All Systems PM: A 10-system review of systems was performed and is negative for pertinent findings except as documented above in the HPI. - Constitutional Vitals: Temp Pulse Resp BP Pulse Ox 97.6 F 140 20 102/80 96 12/12/16 23:31 12/12/16 23:31 12/12/16 23:31 12/12/16 23:31 12/12/16 23:31 Exam: General: Morbid obesity. Not in acute distress at the time of my evaluation HEENT: Oral mucosa is dry. No conjunctival palor or scleral icterus Neck: No obvious neck swellings Lungs: Clear to auscultation Cardiac: Regular rate and rhythm. No significant murmurs Abdomen: Obese; suprapubic tenderness present. Bowel sounds present Genitourinary: go catheter present Neurological: Alert and oriented. No gross localizing deficits Psych: Not aggressive or agitated Extremities: B/L Lower extremity edema present Skin: Skin excoriation over the back and blisters on the inner thighs present. Internal Med - H&P Results - Labs CBC & Chem 7: 12/13/16 02:49 12/13/16 02:49 - EKG Data -: EKG Interpreted by Myself - EKG Data EKG comments: Atrial fibrillation with rapid ventricular response, heart rate in the 130s 12/13/16 08:34 - Impressions CXR done at [facility] showed no acute cardiopulmonary process
[2016-12-13] MEDS ORDERED: *HR* Morphine 2 MG/ML SYRINGE IVP ONE (01:46)
[2016-12-13] MEDS ORDERED: Acetaminophen 325 MG TABLET PO PRN (01:49)
[2016-12-13] MEDS ORDERED: Naloxone 0.4 MG/ML INJ IVP PRN ×2 (01:49→13:50)
[2016-12-13] MEDS ORDERED: Dextrose Gel 15 GM PO PRN ×4 (01:58→13:50)
[2016-12-13] MEDS ORDERED: D5% in Water 1,000 ML IVC PRN (01:58)
[2016-12-13] MEDS: Meropenem 500 MG in 0.9 % Sodium Chloride Mini Bag 100 ML IVPB SCH ×4 (02:48→23:01)
[2016-12-13 03:07] LABS: Basophils # 0.1 K/mcL (0.0-0.2); Basophils % 0.4 %; Eosinophils # 0.4 K/mcL (0.0-0.6); Eosinophils % 2.4 %; Hematocrit 34.5 % (35.3-44.9); Hemoglobin 12.2 g/dL (11.5-15.4); Immature Granulocytes % 0.7 % (0-4); Lymphocytes # 2.5 K/mcL (0.6-4.6); Lymphocytes % 15.7 %; Mean Corpuscular HGB Conc 35.4 g/dL (31.6-35.5); Mean Corpuscular Hemoglobin 27.8 pg (28.0-33.3); Mean Platelet Volume 11.1 fL (9.4-12.4); Monocytes % 6.1 %; Platelet Count 247 K/mcL (140-400); Red Blood Count 4.39 M/mcL (3.82-4.97); Red Cell Distribution Width 13.7 % (11.5-14.5); Segmented Neutrophils % 74.7 %
[2016-12-13 03:11] LABS: Mean Corpuscular Volume 78.6 fL (83.0-100.0)
[2016-12-13 04:16] LABS: BUN/Creatinine Ratio 16 (6-26); Blood Urea Nitrogen 14 mg/dL (7-20); Calcium 7.5 mg/dL (8.6-10.8); Carbon Dioxide 20 mEq/L (19-29); Chloride 102 mEq/L (98-109); Glucose 65 mg/dL (70-99); Magnesium 1.2 mg/dL (1.6-2.6); Osmolality,Calculated 279 (280-300); Potassium 3.8 mEq/L (3.5-4.5); Sodium 135 mEq/L (136-145); eGFR For African Americans > 60 (> 60); eGFR For Non-African Americans > 60 (> 60)
[2016-12-13 04:41] LABS: C-Reactive Protein 36 mg/L (Less than 5)
[2016-12-13] MEDS ORDERED: 0.9 % Sodium Chloride 500 ML ONE ×2 (06:15→10:28)
[2016-12-13] MEDS ORDERED: 0.9 % Sodium Chloride 500 ML IVC ONE ×4 (06:16→16:48)
[2016-12-13] MEDS: *HR* Dextrose 50 % in Water (Syg) 50 ML SYRINGE IVP PRN ×2 (06:16→09:41)
[2016-12-13] MEDS ORDERED: Magnesium Sulfate 2 GM in D5% in Water 100 ML IVPB ONE ×2 (07:03→09:20)
--- NOTE | 2016-12-13 08:29 | Cardiology Consult Note ---
<Vinny Jones - Last Filed: 12/13/16 12:33> Date of Encounter: 12/13/16 Time of Encounter: 08:27 Assessment and Plan (1) Sepsis Current Visit: Yes Status: Acute Per Cardiology: Suspected UTI and sepsis. Management per primary service. Transfer to ICU pending. On antibiotics. Suspect contributing factor to A. fib with RVR. Qualifiers: Sepsis type: sepsis due to unspecified organism Qualified Code(s): A41.9 - Sepsis, unspecified organism (2) Atrial fibrillation with RVR Current Visit: Yes Status: Acute Per Cardiology: Noted to have brief paroxysmal atrial fibrillation during last hospital stay September 2016 managed with rate of murray and calcium channel murray. Now A. fib with RVR currently in the 110s to 130s. Cardizem drip currently off due to hypotension systolic blood pressure in the 80s. Upon review of records it appears patient received IV digoxin 0.25 mg 2. Discussed and reviewed with Dr. Winters, we'll proceed with amiodarone drip. Of note pending transfer to ICU per primary service and pulmonology. Replace magnesium. Recent TSH 09/2016 stable. Regarding long-term anticoagulation, was started on Xarelto 20 mg by mouth daily during last hospital stay. Kidney function and CBC stable. Recommend resume. (3) CAD (coronary artery disease) Current Visit: No Status: Acute Per Cardiology: History of CAD with last heart catheterization October 04, 2016 which showed mid LAD 30%, mid circumflex 40%, patent OM 2 stent, mid RCA 30% stenosis. Troponin negative. We'll resume aspirin. Hold beta murray for now due to hypotension. Not on statins due to history of myalgias. Qualifiers: Coronary Disease-Associated Artery/Lesion type: marshall artery [place] vs. transplanted heart: marshall heart Associated angina: angina presence unspecified Qualified Code(s): I25.10 - Atherosclerotic heart disease of marshall coronary artery without angina pectoris (4) Hypomagnesemia Current Visit: Yes Status: Acute Per Cardiology: Most recent magnesium 1.2-- discussed and reviewed are primary service with replacement. Recommend magnesium 2.0 or higher. Suspect between factor to A. fib with RVR. Discussion w patient/family: The assessment and plan as outlined above was discussed with the patient and/or family members who expressed understanding and agreement. All questions were answered. Thank you for involving us in the care of your patient. Please call with any questions. History of Present Illness Consult date: 12/13/16 Requesting physician: Marline Aguilar Consult reason: Afib RVR Chief complaint: Palpitations, N/V, Fever and chills History of present illness: Previous records reviewed: "Ms. Golden is a 66 year old female with multiple medical comorbidities including asthma, COPD, morbid obesity, diastolic heart failure. She was admitted to this facility in September 2016 for generalized weakness. She was treated for UTI, supraventricular tachycardia, paroxysmal atrial fibrillation and ventricular tachycardia. She had left heart catheterization no significant lesions. She was initiated on Xarelto for anticoagulation for paroxysmal A fib. She is a resident of [facility]. She was taken to emergency department at the [facility], for poor oral intake, nausea and vomiting. She was noted to be in fibrillation with rapid ventricular response with heart rate of 140 bpm. She was given diltiazem bolus, with transient improvement of heart rate. She was also hypoglycemic with serum glucose of 37 - she was given D50. Urinalysis was positive for leukocyte esterase - was given ceftriaxone. She is transferred to the hospitalist service for further management". Cardiology C/S for afib RVR. Patient seen this morning and somewhat somnolent, alert and oriented 3. Required frequent reawakening. Patient reports over the past few weeks decreased by mouth intake due to nausea, vomiting. She denies any diarrhea. Reports positive fever and chills. Reports came to ER for development of chest palpitations from [facility]. Reports taking medications (Xarelto ) as provided by [facility], however reports at times difficult swallowing pills. Past Med Surg Social Fam HX - Past Medical History Attestation: Yes The following information was validated with the patient. Source: patient, old records reviewed Medical history: arthritis, asthma, atrial fibrillation, CHF, COPD, diabetes, GERD Psychiatric history: anxiety, depression, panic disorder - Past Surgical History Surgical History: angioplasty/stent, hysterectomy - Social History Smoking Status: Never smoker Smokeless Tobacco Status: No Alcohol use: none Drug use: none - Family History Brother Living Status: Still Living Hx Family Cardiac Disorders: Yes (HTN) Hx Family Endocrine Disorder: Yes (Diabetes) Mother Living Status: Hx Family Cardiac Disorders: Yes (HTN) Hx Family Endocrine Disorder: Yes (Diabetes) Father Living Status: Hx Family Cardiac Disorders: Yes (CABG x3 HTN diabetes) Hx Family Respiratory Disorders: No Hx Family Cancer: No Hx Family GI Disorders: No Hx Family Endocrine Disorder: Yes Hx Family Neuromuscular Disorders: No Hx Family Neurologic Disorders: No Hx Family HEENT Disorders: No Hx Family Autoimmune Disorders: No Medications and Allergies Albuterol Sulfate [Ventolin Hfa] 2 puff IH Q4H PRN 12/12/16 [History] Amaryl PO DAILY 12/12/16 [History] Aspirin 81 mg PO DAILY 12/12/16 [History] Budesonide/Formoterol 160/4.5 [Symbicort 160/4.5] 1 puff IH BIDR 12/12/16 [ History] Cetirizine HCl [All Day Allergy] 10 mg PO DAILY 12/12/16 [History] Diltiazem CD (24hr) [Cardizem CD] 300 mg PO DAILY 12/12/16 [History] HYDROcodone/Acet 5/325 mg [[place] 5-325 mg] 1 tab PO Q6H PRN 12/12/16 [History] LORazepam [Ativan] 0.5 mg PO Q6HR 12/12/16 [History] Levalbuterol Neb [Xopenex Neb] 0.63 mg IH Q6H PRN 12/12/16 [History] Levocetirizine Dihydrochloride [Xyzal] 5 mg PO DAILY 12/12/16 [History] Metoprolol Tartrate 25 mg PO BID 12/12/16 [History] Montelukast Sodium [Singulair] 10 mg PO DAILY 12/12/16 [History] Multivitamin [Multi-Day Vitamins] 1 each PO 12/12/16 [History] Nitroglycerin [Nitrostat] 0.4 mg SL 12/12/16 [History] Nystatin POWDER [Nystop] 1 appl TP BID 12/12/16 [History] Ondansetron HCl 4 mg PO Q6H 12/12/16 [History] Oxycodone HCl [OxyCODONE Oral Soln] 5 mg PO Q4H PRN 12/12/16 [History] Pantoprazole Sodium [Protonix] 40 mg PO DAILY 12/12/16 [History] Promethazine HCl 25 mg RC Q6H 12/12/16 [History] Rivaroxaban [Xarelto] 20 mg PO DAILY 12/12/16 [History] Allergies levofloxacin [From Levaquin] Allergy (Verified 09/28/16 08:50) Hives Penicillins Allergy (Verified 09/28/16 08:50) Blister prednisone Allergy (Verified 09/28/16 08:50) See Comments all over swelling Sulfa (Sulfonamide Antibiotics) Allergy (Verified 09/28/16 08:50) Hives Banana Adverse Reaction (Severe, Verified 09/28/16 08:50) Blister egg Adverse Reaction (Severe, Verified 09/28/16 08:50) Throat swelling nitrofurantoin [From Macrobid] Adverse Reaction (Severe, Verified 09/28/16 08:50 ) Bruising on arms All Systems Review: A 10-system review of systems was performed and is negative for pertinent findings except as documented above in the HPI. - Constitutional Constitutional: chills, daytime sleepiness, fatigue, fever(s), weakness - Cardiovascular Cardiovascular: as per HPI, chest pain at rest, leg edema, palpitations, rapid heart rate - Gastrointestinal Gastrointestinal: nausea - Musculoskeletal Musculoskeletal: muscle weakness Physical Examination Vital Signs, Last 4 Hours Pulse Resp BP Pulse Ox 12/13/16 07:00 129 15 81/58 95 General: Conversant HEENT: Atraumatic, Normocephaly, Mucus Membranes Moist Neck: No JVD, Normal carotid pulses Cardiac: No Murmur, Other (Irregularly irregular) Lungs: Normal Breath Sounds, No Wheeze, Rales, Rhonchi Neuro: Alert and responsive, Other (somnolent, alert & Oriented 3) Abdomen: Soft, Non-Tender, Other (obese) Skin: No rashes noted on visualized skin Musculoskeletal: No Chest Wall Tenderness Extremities: Other (+2 pitting edema to bilateral LE) Results 12/13/16 02:49 12/13/16 02:49 Lab Results Laboratory Tests 12/13/16 12/13/16 12/13/16 02:49 02:49 02:49 WBC 16.1 H Magnesium 1.2 L Troponin I 0.01 Intake & Output 12/10/16 12/11/16 12/12/16 12/13/16 23:59 23:59 23:59 23:59 Intake Total 0 / 0 0 / 0 Output Total 200 / 200 Balance 0 / 0 -200 / -200 Weight 136.5 kg Active Medications Acetaminophen (Tylenol) 650 mg PO Q6HR PRN PRN Reason: Mild Pain (1-3); fever Stop: 06/14/17 01:50 Dextrose/Water (Dextrose 50% (Syg)) 25 ml IVP AD PRN PRN Reason: Hypoglycemia Stop: 06/14/17 01:59 Last Admin: 12/13/16 06:16 Dose: 25 ml Glucagon (Glucagen) 1 mg IM ONCE PRN PRN Reason: Hypoglycemia Stop: 06/14/17 01:59 Glucose (Gluctose) 15 gm PO ONCE PRN PRN Reason: Hypoglycemia Stop: 06/14/17 01:59 Glucose (Gluctose) 30 gm PO ONCE PRN PRN Reason: Hypoglycemia Stop: 06/14/17 01:59 Diltiazem HCl 125 mg/ Dextrose 125 mls @ 5 mls/hr IVC .Q24H BEATA; 5 MG/HR PRN Reason: Protocol Stop: 06/14/17 01:31 Last Admin: 12/13/16 02:49 Dose: 5 mg/hr, 5 mls/hr Dextrose (Dextrose 5%) 1,000 mls @ 100 mls/hr IVC .Q10H PRN PRN Reason: HYPOGLYCEMIA Stop: 06/14/17 01:59 Meropenem 500 mg/ Sodium (Chloride) 100 mls @ 200 mls/hr IVPB Q8HR BEATA Stop: 06/14/17 02:03 Last Admin: 12/13/16 02:48 Dose: 200 mls/hr Magnesium Sulfate 2 gm/ (Dextrose) 104 mls @ 50 mls/hr IVPB ONCE ONE Stop: 12/13/16 09:07 Lactobacillus Acidophilus/Rhamnosus (Culturelle) 1 each PO BID BEATA Stop: 06/14/17 09:01 Naloxone HCl (Narcan) 0.4 mg IVP Q2MIN PRN PRN Reason: Opioid Reversal Stop: 06/14/17 01:50 - Imaging and Cardiology Chest Xray: report reviewed Echo: report reviewed Cardiac cath: report reviewed - EKG Interpretation EKG results cardiology: personally reviewed (Atrial fibrillation with rate in the 130s), other (24 hour telemetry reviewed with average heart rate 133, A. fib. Currently A. fib and 110s to 120s.) Consult Discharge Plan - Plan Referrals: Monica Chahal, COSMETICS DEMONSTRATOR [Primary Care Provider] - <Adelaida Winters - Last Filed: 12/13/16 16:33> Date of Encounter: 12/13/16 Assessment and Plan Discussion w patient/family: The assessment and plan as outlined above was discussed with the patient and/or family members who expressed understanding and agreement. All questions were answered. Thank you for involving us in the care of your patient. Please call with any questions. History of Present Illness History of present illness: Ms. Golden is a 66 year old female All Systems Review: A 10-system review of systems was performed and is negative for pertinent findings except as documented above in the HPI. Physical Examination Vital Signs, Last 4 Hours Temp Pulse Resp BP Pulse Ox 12/13/16 15:45 134 12/13/16 15:00 136 16 88/69 100 12/13/16 14:45 141 14 87/75 100 12/13/16 13:58 138 12/13/16 13:45 98.5 F 139 12 98/42 100 Results 12/13/16 02:49 12/13/16 02:49 Lab Results 12/13/16 12/13/16 12/13/16 02:49 02:49 02:49 WBC 16.1 H Hgb 12.2 Hct 34.5 L Plt Count 247 Sodium 135 L Potassium 3.8 Chloride 102 Carbon Dioxide 20 BUN 14 Creatinine 0.89 Glucose 65 L Calcium 7.5 L Magnesium 1.2 L Troponin I 0.01 - Attending Attestation I examined this patient and my medical decision-making was reviewed with the MILITARY SOURCE OPERATIONS SPECIALIST/PA/Advanced Practice Nurse/Resident Physician. I agree with the documented findings, disposition and treatment plan. Ms. Golden has a septic picture with suspected UTI complicated by AF RVR which is not new. Due to hypotension, AF has been challenging to control. She was given a partial load of digoxin yesterday without improvement. We recommend using amiodarone drip without bolus and restarting xarelto for anticoagulation.
[2016-12-13] MEDS ORDERED: Lactobacillus 1 EACH CAP.SPRINK PO SCH (09:00)
[2016-12-13] MEDS ORDERED: Amiodarone Premix 360 MG/200 ML BAG IVC ONE (11:50)
[2016-12-13] MEDS ORDERED: Amiodarone Premix 360 MG/200 ML BAG IVC SCH (12:00)
[2016-12-13] MEDS ORDERED: Aspirin Enteric Coated 81 MG Tablet PO SCH (12:45)
--- NOTE | 2016-12-13 12:47 | Event Note ---
Date of Encounter: 12/13/16 Time of Encounter: 12:40 66/female Brief past medical history/comorbidities: Type 2 diabetes mellitus, hypertension , COPD, morbid obesity, diastolic heart failure, paroxysmal atrial fibrillation. Hospital course: Patient is a resident of a [facility]. She was sent to [facility] for poor oral intake/nausea/vomiting. In the emergency room was noted that she was in atrial fibrillation. She was sent to this hospital for further management and evaluation. Patient is known to have chronic multiple urinary tract infection in the past. The recent urinary tract infection was 2 weeks back with she grew Escherichia coli. This Escherichia coli was multiple drug-resistant organism and that is the reason presently she was started on meropenem. Patient has elevated lactic acid to 2.5 and currently she is hypotensive which is likely secondary to multifactorial etiology. The etiology of hypotension can be sepsis, Cardizem drip, pain medication. Plan: I spoke with pulmonology/critical care. Patient will be transferred to critical care unit for further evaluation. Patient will be on amiodarone drip which cannot be done on this floor.
[2016-12-13] MEDS ORDERED: *HR* Dextrose 50 % in Water (Syg) 50 ML SYRINGE IVP PRN (13:50)
[2016-12-13] MEDS ORDERED: Ringers Solution, Lactated 500 ML IVC ONE (13:51)
--- NOTE | 2016-12-13 14:03 | Pulmonology Consult Note ---
<Nestor Gordon - Last Filed: 12/13/16 17:08> Date of Encounter: 12/13/16 Time of Encounter: 13:55 Assessment and Plan (1) Atrial fibrillation with RVR Current Visit: Yes Status: Acute Currently on amiodarone drip, which is the reason for transfer to ICU. There was no bed availability on 2N. Cardiology following. Heart rate remails elevated from 130-150bpm. EKG ordered. Anticoagulated on Xarelto. The patient may need BiPAP overnight. (2) Severe sepsis Current Visit: Yes Status: Acute The patient meets SIRS criteria with elevated WBC and HR above 90. Elevated lactate of 2.5, repeat of 3.0 will continue to follow. Source of UTI. Culture pending. History of ESBL. Continue Meropenem Day #1. Gentle fluid hydration at this time due to diastolic heart failure. (3) UTI (urinary tract infection) Current Visit: Yes Status: Acute Continue Meropenem Day #1. Urine culture pending. Qualifiers: Urinary tract infection type: site unspecified Hematuria presence: without hematuria Qualified Code(s): N39.0 - Urinary tract infection, site not specified (4) Anasarca Current Visit: Yes Status: Acute Cautious hydration at this time for sepsis. With excoriation of the skin over the thighs and seepage of the 2nd toe on the right foot. Wound care has been consulted. Continue to monitor. Diastolic heart failure. Echocardiogram on 08/07/16: LVEF 60% with evidence of mild diastolic dysfunction of the left ventricle. (5) Diabetes Current Visit: No Status: Chronic Episodes of hypoglycemia since admission. Currently cardiac diet ordered. The patient has poor oral intake with continued nausea. POC glucose Q4. Continue to monitor. Qualifiers: Diabetes mellitus type: type 2 Diabetes mellitus complication status: with hyperglycemia Diabetes mellitus laborer marine terminal insulin use: without laborer marine terminal use Qualified Code(s): E11.65 - Type 2 diabetes mellitus with hyperglycemia (6) DVT prophylaxis Current Visit: No Status: Acute Patient is on Xarelto History of Present Illness Consult date: 12/13/16 Requesting physician: Broderick Ontiveros Reason for consult: dyspnea, other (a. fib RVR with hypotension) Chief complaint: weakness and dizziness History of present illness: This is a 66 year old female with PMH of DM2, HTN, COPD, morbid obesity, diastolic heart failure, coronary artery disease, and paroxysmal atrial fibrillation who presented to the ER in [place] for nausea, vomiting, and poor oral intake. Upon initial evaluation she was found to have A. fib RVR with hypoglycemia. She was given d50 and was given diltiazem bolus, which caused her to become hypotensive. She complains of continued nausea and vomiting as will as dizziness with chest discomfort and palpitations. She was additionally found to have a UTI with previous culture demonstrating ESBL. She has been started on meropenem. She was started on an amiodarone drip for her A. fib and intolerance of diltiazem. She was subsequently transferred to the ICU as the amiodarone drip necessitates a higher level of care. Past Med Surg Social Fam HX - Past Medical History Medical history: arthritis, asthma, atrial fibrillation, CHF, COPD, diabetes, GERD Psychiatric history: anxiety, depression, panic disorder - Past Surgical History Surgical History: angioplasty/stent, hysterectomy - Social History Smoking Status: Never smoker Smokeless Tobacco Status: No Alcohol use: none Drug use: none - Family History Brother Living Status: Still Living Hx Family Cardiac Disorders: Yes (HTN) Hx Family Endocrine Disorder: Yes (Diabetes) Mother Living Status: Hx Family Cardiac Disorders: Yes (HTN) Hx Family Endocrine Disorder: Yes (Diabetes) Father Living Status: Hx Family Cardiac Disorders: Yes (CABG x3 HTN diabetes) Hx Family Respiratory Disorders: No Hx Family Cancer: No Hx Family GI Disorders: No Hx Family Endocrine Disorder: Yes Hx Family Neuromuscular Disorders: No Hx Family Neurologic Disorders: No Hx Family HEENT Disorders: No Hx Family Autoimmune Disorders: No Medications and Allergies Albuterol Sulfate [Ventolin Hfa] 2 puff IH Q4H PRN 12/12/16 [History] Amaryl PO DAILY 12/12/16 [History] Aspirin 81 mg PO DAILY 12/12/16 [History] Budesonide/Formoterol 160/4.5 [Symbicort 160/4.5] 1 puff IH BIDR 12/12/16 [ History] Cetirizine HCl [All Day Allergy] 10 mg PO DAILY 12/12/16 [History] Diltiazem CD (24hr) [Cardizem CD] 300 mg PO DAILY 12/12/16 [History] HYDROcodone/Acet 5/325 mg [Chancellor 5-325 mg] 1 tab PO Q6H PRN 12/12/16 [History] LORazepam [Ativan] 0.5 mg PO Q6HR 12/12/16 [History] Levalbuterol Neb [Xopenex Neb] 0.63 mg IH Q6H PRN 12/12/16 [History] Levocetirizine Dihydrochloride [Xyzal] 5 mg PO DAILY 12/12/16 [History] Metoprolol Tartrate 25 mg PO BID 12/12/16 [History] Montelukast Sodium [Singulair] 10 mg PO DAILY 12/12/16 [History] Multivitamin [Multi-Day Vitamins] 1 each PO 12/12/16 [History] Nitroglycerin [Nitrostat] 0.4 mg SL 12/12/16 [History] Nystatin POWDER [Nystop] 1 appl TP BID 12/12/16 [History] Ondansetron HCl 4 mg PO Q6H 12/12/16 [History] Oxycodone HCl [OxyCODONE Oral Soln] 5 mg PO Q4H PRN 12/12/16 [History] Pantoprazole Sodium [Protonix] 40 mg PO DAILY 12/12/16 [History] Promethazine HCl 25 mg RC Q6H 12/12/16 [History] Rivaroxaban [Xarelto] 20 mg PO DAILY 12/12/16 [History] Allergies levofloxacin [From Levaquin] Allergy (Verified 09/28/16 08:50) Hives Penicillins Allergy (Verified 09/28/16 08:50) Blister prednisone Allergy (Verified 09/28/16 08:50) See Comments all over swelling Sulfa (Sulfonamide Antibiotics) Allergy (Verified 09/28/16 08:50) Hives Banana Adverse Reaction (Severe, Verified 09/28/16 08:50) Blister egg Adverse Reaction (Severe, Verified 09/28/16 08:50) Throat swelling nitrofurantoin [From Macrobid] Adverse Reaction (Severe, Verified 09/28/16 08:50 ) Bruising on arms All Systems: A 10-system review of systems was performed and is negative for pertinent findings except as documented above in the HPI. - Constitutional Constitutional: fatigue, weakness, no chills, no fever(s) - EENT Nose, mouth and throat: dizziness - Cardiovascular Cardiovascular: lightheadedness, palpitations, rapid heart rate, other (chest pressure), no chest pain - Respiratory Respiratory: dyspnea, no hemoptysis - Gastrointestinal Gastrointestinal: nausea, vomiting Physical Examination Vital Signs: Vital Signs, Last 4 Hours Temp Pulse Resp BP Pulse Ox 12/13/16 13:45 98.5 F 139 12 98/42 100 12/13/16 10:39 97.9 F 135 14 108/33 97 General appearance: no acute distress Eyes: nonicteric ENT: oropharynx dry Effort: normal Auscultation: bilateral: clear Cardiovascular: irregular rhythm (with tachycardia) Gastrointestinal: normoactive bowel sounds, tender, non-distended, other (obese) Integumentary: other (skin excoriation on thighs as well as seepage from 2nd toe of the right foot) Extremities: edema normal mental status, non-focal exam Results - Laboratory Findings CBC and BMP: 12/13/16 02:49 12/13/16 02:49 Abnormal lab findings: Abnormal lab results WBC 16.1 K/mcL (4.3-11.1) H 12/13/16 02:49 Hct 34.5 % (35.3-44.9) L 12/13/16 02:49 MCV 78.6 fL (83.0-100.0) L 12/13/16 02:49 MCH 27.8 pg (28.0-33.3) L 12/13/16 02:49 Neutrophils # 12.0 K/mcL (1.6-8.9) H 12/13/16 02:49 Sodium 135 mEq/L (136-145) L 12/13/16 02:49 Glucose 65 mg/dL (70-99) L 12/13/16 02:49 POC Glucose 110 (58-89) H 12/13/16 13:45 Calculated Osmolality 279 (280-300) L 12/13/16 02:49 Lactic Acid 2.5 mmol/L (0.5-2.2) H 12/13/16 04:19 Calcium 7.5 mg/dL (8.6-10.8) L 12/13/16 02:49 Magnesium 1.2 mg/dL (1.6-2.6) L 12/13/16 02:49 C-Reactive Protein 36 mg/L (Less than 5) H 12/13/16 02:49 - Clinical Findings Intake & Output: Intake & Output 12/12/16 12/13/16 12/13/16 23:59 07:59 15:59 Intake Total 0 / 0 100 / 100 480 / 480 Output Total 200 / 200 170 / 170 Balance 0 / 0 -100 / -100 310 / 310 Weight 136.5 kg Consult Discharge Plan - Plan Referrals: Monica Chahal, PAYMENT ANALYST [Primary Care Provider] - <Mat Phillips - Last Filed: 12/13/16 17:32> Date of Encounter: 12/13/16 All Systems: A 10-system review of systems was performed and is negative for pertinent findings except as documented above in the HPI. Physical Examination Vital Signs: Vital Signs, Last 4 Hours Temp Pulse Resp BP Pulse Ox 12/13/16 14:45 141 14 87/75 100 12/13/16 13:58 138 12/13/16 13:45 98.5 F 139 12 98/42 100 Results - Laboratory Findings CBC and BMP: 12/13/16 02:49 12/13/16 02:49 ABG ABG pH 7.48 pH Units (7.32-7.45) H 12/13/16 14:45 ABG pCO2 29 mmHg (35-45) L 12/13/16 14:45 ABG pO2 98 mmHg (85-104) 12/13/16 14:45 ABG O2 Saturation 98 % (95-98) 12/13/16 14:45 Abnormal lab findings: Abnormal lab results WBC 16.1 K/mcL (4.3-11.1) H 12/13/16 02:49 Hct 34.5 % (35.3-44.9) L 12/13/16 02:49 MCV 78.6 fL (83.0-100.0) L 12/13/16 02:49 MCH 27.8 pg (28.0-33.3) L 12/13/16 02:49 Neutrophils # 12.0 K/mcL (1.6-8.9) H 12/13/16 02:49 ABG pH 7.48 pH Units (7.32-7.45) H 12/13/16 14:45 ABG pCO2 29 mmHg (35-45) L 12/13/16 14:45 Sodium 135 mEq/L (136-145) L 12/13/16 02:49 Glucose 65 mg/dL (70-99) L 12/13/16 02:49 POC Glucose 110 (58-89) H 12/13/16 13:45 Calculated Osmolality 279 (280-300) L 12/13/16 02:49 Lactic Acid 2.5 mmol/L (0.5-2.2) H 12/13/16 04:19 Calcium 7.5 mg/dL (8.6-10.8) L 12/13/16 02:49 Magnesium 1.2 mg/dL (1.6-2.6) L 12/13/16 02:49 C-Reactive Protein 36 mg/L (Less than 5) H 12/13/16 02:49 - Clinical Findings Intake & Output: Intake & Output 12/12/16 12/13/16 12/13/16 23:59 07:59 15:59 Intake Total 0 / 0 100 / 100 1100 / 1100 Output Total 200 / 200 170 / 170 Balance 0 / 0 -100 / -100 930 / 930 Weight 136.5 kg 134 kg - Attending Attestation I examined this patient and my medical decision-making was reviewed with the MARKETING EDITOR/PA/Advanced Practice Nurse/Resident Physician. I agree with the documented findings, disposition and treatment plan as described except to the extent set forth below. Patient seen and examined at bedside Labs, radiology, chart personally reviewed. All lines examined without evidence of infection. Neuropsych: somnolent but easilty arrousable. follows all commands and is appropriate. Feel that decreased level of sensorium attributable to severe sepsis and as such treat underlying cause. Pulm: Patient on very minimal supplemental oxygen support and no respiratory distress and ABGs reassuring the patient is not developing a respiratory acidosis. Evidence of pneumonia on CT scan if worsening respiratory status can consider NIPPV Cards: History of CHF with underlying atrial fibrillation now with RVR loaded with Digoxin but was unsuccessful in controlling rate. now on Amiodarone gtt cardiology following. Borderline hypotensive at this time (sepsis and afib) MAP has been tenuous with high probability of decompensation and thus monitoring in ICU. FEN-GI: NPO for now given mental status. no indication for GI prophylaxis Renal: No KATY cont to monitor electrolytes daily ID: Severe Sepsis s/t ESBL UTI on appropriate coverage with Meropenem pending s/ s. Fluid resuscitated today with crystalloid challenges 0.5L at a time to monitor for respiratory impact. We will trend lactate and UOP Heme/Onc: On NOAC for afib. Plts stable. H/H stable Endo: Glucose Monitored Integ/MSK: skin care per ICU nursing protocol to prevent ulcers CODE: Full patient and family updated at bedside.
[2016-12-13 14:54] LABS: ABG HCO3 21.6 mEQ/L (21-27); ABG Oxygen Saturation 98 % (95-98); ABG PCO2 29 mmHg (35-45); ABG PH 7.48 pH Units (7.32-7.45); ABG PO2 98 mmHg (85-104); ABG TCO2 22.5 mEq/L (20-26)
[2016-12-13 14:55] LABS: Blood Gas FiO2 28 %; Blood Gas Liter Flow 2 L/MIN
[2016-12-13] MEDS ORDERED: *HR* Rivaroxaban 10 MG TABLET PO SCH (17:00)
[2016-12-13] MEDS: *HR* Rivaroxaban 10 MG TABLET PO SCH (17:21)
[2016-12-13] MEDS: Amiodarone Premix 360 MG/200 ML BAG IVC SCH (20:13)
[2016-12-13] MEDS: Lactobacillus 1 EACH CAP.SPRINK PO SCH (23:01)
[2016-12-14] MEDS: Acetaminophen 325 MG TABLET PO PRN ×2 (00:07→09:23)
[2016-12-14 04:21] LABS: ABG Base Excess 3.4 mEq/L (-2.0 to 3.0); ABG HCO3 26.7 mEQ/L (21-27); ABG Oxygen Saturation 98 % (95-98); ABG PCO2 35 mmHg (35-45); ABG PH 7.49 pH Units (7.32-7.45); ABG PO2 97 mmHg (85-104); ABG TCO2 27.8 mEq/L (20-26)
[2016-12-14 04:25] LABS: Blood Gas FiO2 30 %
[2016-12-14] MEDS: Amiodarone Premix 360 MG/200 ML BAG IVC SCH ×2 (05:58→18:20)
[2016-12-14 07:11] LABS: Hemoglobin 11.3 g/dL (11.5-15.4)
[2016-12-14 07:13] LABS: Basophils # 0.1 K/mcL (0.0-0.2); Basophils % 0.6 %; Eosinophils # 0.8 K/mcL (0.0-0.6); Eosinophils % 6.9 %; Hematocrit 33.5 % (35.3-44.9); Immature Granulocytes % 0.6 % (0-4); Immature Platelets 7.1 % (1.1-6.1); Lymphocytes # 1.8 K/mcL (0.6-4.6); Lymphocytes % 15.4 %; Mean Corpuscular HGB Conc 33.7 g/dL (31.6-35.5); Mean Corpuscular Hemoglobin 27.7 pg (28.0-33.3); Mean Corpuscular Volume 82.1 fL (83.0-100.0); Mean Platelet Volume 12.6 fL (9.4-12.4); Monocytes # 0.7 K/mcL (0.0-1.3); Monocytes % 5.8 %; Neutrophils # 8.1 K/mcL (1.6-8.9); Platelet Count 203 K/mcL (140-400); Red Blood Count 4.08 M/mcL (3.82-4.97); Red Cell Distribution Width 16.5 % (11.5-14.5); Segmented Neutrophils % 70.7 %
[2016-12-14 07:44] LABS: Platelet Estimate Normal (Normal)
--- NOTE | 2016-12-14 08:09 | Cardiology Progress Note ---
Date of Encounter: 12/14/16 Time of Encounter: 08:10 Assessment and Plan (1) Sepsis Current Visit: Yes Status: Acute Per Cardiology: Suspected UTI and sepsis. Management per primary service. On antibiotics. Suspect contributing factor to A. fib with RVR. Qualifiers: Sepsis type: sepsis due to unspecified organism Qualified Code(s): A41.9 - Sepsis, unspecified organism (2) Atrial fibrillation with RVR Current Visit: Yes Status: Acute Per Cardiology: Noted to have brief paroxysmal atrial fibrillation during last hospital stay September 2016 managed with BB and CCB (xarelto). Remains A. fib with RVR-- avg HR past 12 hrs 119. Not on cardizem gtt d/t hypotension-- systolic blood pressure in the 80s. Received IV digoxin 0.25 mg 2 per primary service. Now on amiodarone drip. Mg improved to 2.1. Suspect will be challenging to rate control until underlying comorbids improve. Will discuss with Dr. Winters further digoxin. Regarding long-term anticoagulation, on Xarelto 20 mg PO daily. (3) CAD (coronary artery disease) Current Visit: No Status: Chronic Per Cardiology: History of CAD with last heart catheterization October 04, 2016 which showed mid LAD 30%, mid circumflex 40%, patent OM 2 stent, mid RCA 30% stenosis. Troponin negative. On aspirin. BB off d/t hypotension. Not on statin due to history of myalgias. Qualifiers: Coronary Disease-Associated Artery/Lesion type: [place] artery [place] vs. transplanted heart: [place] heart Associated angina: angina presence unspecified Qualified Code(s): I25.10 - Atherosclerotic heart disease of [place] coronary artery without angina pectoris (4) Hypomagnesemia Current Visit: Yes Status: Acute Per Cardiology: Improved from 1.2 to 2.1, monitor. (5) Lower extremity edema Current Visit: No Status: Chronic Per Cardiology: CXR shows no evidence of CHF. Echo from July 2016 showed EF preserved 60%, mild diastolic dysfunction, mild to moderate MR, no pulmonary hypertension. BNP noted to be only 334. Denies SOB. No diuresis warranted and SBP most likely will not tolerate. Recent Albumin 2.2. Rec wrap legs in TAMARA wraps. Can repeat limited echo once rate controlled if clinically warranted. Qualifiers: Laterality: bilateral Qualified Code(s): R60.0 - Localized edema Discussion w patient/family: The assessment and plan as outlined above was discussed with the patient who expressed understanding and agreement. All questions were answered. Thank you for involving us in the care of your patient. Please call with any questions. Subjective Principal diagnosis: Afib RVR Interval history: Patient alert and oriented 3. She denies any chest pain, short of breath, palpitations. Reports continues to feel fatigue and nausea with taking pills. Denies any new concerns. Objective Vital Signs, Last 4 Hours Temp Pulse Resp BP 12/14/16 07:48 137 16 84/49 12/14/16 05:00 98.3 F 104 14 88/72 General: Conversant HEENT: Atraumatic, Normocephaly Cardiac: No Murmur, Other (Irregularly irregular) Lungs: Normal Breath Sounds, No Wheeze, Rales, Rhonchi, Other Neuro: Alert and responsive, No focal deficits noted Abdomen: Soft, Non-Tender, Other (obese) Extremities: Other (+2-3 pitting edema bilateral LE) Results 12/14/16 06:34 12/13/16 02:49 Lab Results Laboratory Tests 12/13/16 17:15 Magnesium 2.1 Impressions Chest X-Ray 12/13/16 13:49 IMPRESSION: 1. No radiographic finding to account for patient's shortness of breath. D/ / Mustapha Rajput MD / Mustapha Rajput MD Interpreting Provider: Mustapha Rajput MD Intake & Output 12/11/16 12/12/16 12/13/16 12/14/16 23:59 23:59 23:59 23:59 Intake Total 0 / 0 2019 200 / 200 Output Total 545 / 545 Balance 0 / 0 1475 / 1475 200 / 200 Weight 136.5 kg 136.7 kg 136.7 kg Active Medications Acetaminophen (Tylenol) 650 mg PO Q6HR PRN PRN Reason: Mild Pain (1-3); fever Stop: 06/14/17 01:50 Last Admin: 12/14/16 00:07 Dose: 650 mg Aspirin (Aspirin Ec) 81 mg PO DAILY BEATA Stop: 06/14/17 12:46 Dextrose/Water (Dextrose 50% (Syg)) 25 ml IVP AD PRN PRN Reason: Hypoglycemia Stop: 06/14/17 01:59 Glucagon (Glucagen) 1 mg IM ONCE PRN PRN Reason: Hypoglycemia Stop: 06/14/17 01:59 Glucose (Gluctose) 15 gm PO ONCE PRN PRN Reason: Hypoglycemia Stop: 06/14/17 01:59 Glucose (Gluctose) 30 gm PO ONCE PRN PRN Reason: Hypoglycemia Stop: 06/14/17 01:59 Dextrose (Dextrose 5%) 1,000 mls @ 100 mls/hr IVC .Q10H PRN PRN Reason: HYPOGLYCEMIA Stop: 06/14/17 01:59 Amiodarone HCl/Dextrose (Amiodarone 360mg/200ml Drip Premix) 360 mg in 200 mls @ 16.667 mls/hr IVC CONT BEAAT PRN Reason: 0.5 MG/MIN Stop: 06/14/17 12:01 Last Admin: 12/14/16 05:58 Dose: 0.5 mg/min, 16.667 mls/hr Meropenem 500 mg/ Sodium (Chloride) 100 mls @ 200 mls/hr IVPB Q8HR BEATA Stop: 06/14/17 02:03 Last Infusion: 12/13/16 23:40 Dose: Infused Lactobacillus Acidophilus/Rhamnosus (Culturelle) 1 each PO BID BEATA Stop: 06/14/17 09:01 Last Admin: 12/13/16 23:01 Dose: 1 each Naloxone HCl (Narcan) 0.4 mg IVP Q2MIN PRN PRN Reason: Opioid Reversal Stop: 06/14/17 01:50 Rivaroxaban (Xarelto) 20 mg PO 1700 [facility] Stop: 06/14/17 17:01 Last Admin: 12/13/16 17:21 Dose: 20 mg - Imaging and Cardiology Chest Xray: report reviewed - EKG Interpretation EKG results cardiology: other (Telemetry reviewed with average heart rate 119, A. fib) - VTE Reasons for not Prescribing Prophylaxis: Not indicated-Anticoagulated or INR therapeutic Consult Discharge Plan - Plan Referrals: Monica Chahal, RIBBON WINDER [Primary Care Provider] -
--- NOTE | 2016-12-14 08:52 | Internal Med Progress Note ---
Date of Encounter: 12/14/16 Time of Encounter: 08:45 - Assessment and plan (1) Sepsis Current Visit: Yes Status: Acute Assessment and plan: Suspected source is UTI Afebrile, tachycardia persists Leukocytosis is improving patient also with Afib with RVR and Lactic acidosis Continue Meropenem Repeat lactate Follow repeat urine culture No blood culture per chart review, patient is afebrile, will send blood culture if she develops a fever Qualifiers: Sepsis type: sepsis due to unspecified organism Qualified Code(s): A41.9 - Sepsis, unspecified organism (2) UTI (urinary tract infection) Current Visit: Yes Status: Acute Assessment and plan: No urine culture on chart Prior hx of MDRO E.Coli On Meropenem Leukocytosis is improving Continue same Send and Follow urine culture Qualifiers: Urinary tract infection type: site unspecified Hematuria presence: without hematuria Qualified Code(s): N39.0 - Urinary tract infection, site not specified (3) Generalized weakness Current Visit: Yes Status: Chronic Assessment and plan: PT/OT eval prior to discharge Patient was resident of SNF for rehab prior to admission (4) Anasarca Current Visit: Yes Status: Chronic Assessment and plan: Chronic, continue compression stockings Will start diuresis when BP improves (5) Diabetes Current Visit: Yes Status: Chronic Assessment and plan: A1C 6.3% Continue Sliding scale FS ACHS Qualifiers: Diabetes mellitus type: type 2 Diabetes mellitus complication status: with hyperglycemia Diabetes mellitus terminal supervisor insulin use: without terminal supervisor use Qualified Code(s): E11.65 - Type 2 diabetes mellitus with hyperglycemia (6) Atrial fibrillation with RVR Current Visit: Yes Status: Acute Assessment and plan: Persistent Low BP limits medication options Cardiology following, plan to digitalize Continue monitoring chem and tele Continue Xarelto (7) Hypoglycemia associated with diabetes Current Visit: Yes Status: Acute Assessment and plan: Improved Sliding scale insulin only prn (8) Skin excoriation Current Visit: Yes Status: Chronic Assessment and plan: Continue dressing (9) Lactic acidosis Current Visit: Yes Status: Acute Assessment and plan: Secondary to hypoperfusion and Afib with RVR Rpt lactate (10) Chronic anticoagulation Current Visit: Yes Status: Chronic Assessment and plan: Continue Xarelto (11) Morbid obesity with BMI of 50.0-59.9, adult Current Visit: Yes Status: Chronic (12) Dysphagia Current Visit: Yes Status: Chronic Assessment and plan: Speech and swallow has been consulted, follow recommendations Qualifiers: Dysphagia type: unspecified Qualified Code(s): R13.10 - Dysphagia, unspecified (13) Hypomagnesemia Current Visit: Yes Status: Acute Assessment and plan: Replaced, continue to monitor (14) Hypokalemia Current Visit: Yes Status: Acute Assessment and plan: Replaced, continue to monitor (15) CHF (congestive heart failure) Current Visit: Yes Status: Chronic Assessment and plan: Patient with generalized edema However, CXR shows no evidence of CHF. Echo from July 2016 showed EF preserved 60%, mild diastolic dysfunction, mild to moderate MR, no pulmonary hypertension. BNP noted to be only 334. Continue to monitor respiratory status No diuresis for now Anasarca possibly from hypoalbuminemia Qualifiers: Congestive heart failure type: diastolic Congestive heart failure chronicity: chronic Qualified Code(s): I50.32 - Chronic diastolic (congestive ) heart failure - Subjective Interval history: Initial encounter Seen and evaluated at bedside, having breakfast Sates "my mouth hurts", otherwise denies new complains 66 F with Morbid Obesity, BMI 55.1, CHFpEF, COPD, Afib, s/p [facility] 09/2016 without any significant CAD, DM II Admitted this time for Afib with RVR with hypotension and lactic acidosis, Severe sepsis secondary to UTI, She remains in RVR , HR 142 and BP 85/50 wit MAP 70 at time of review Leukocytosis is improving Hypoglycemia is improving Repeat lactate and labs scheduled Patient is being co-managed with cardiology - Constitutional Vitals: Temp Pulse Resp BP Pulse Ox 98.3 F 137 16 84/49 99 12/14/16 05:00 12/14/16 07:48 12/14/16 07:48 12/14/16 07:48 12/13/16 22:25 VS-Afib with RVR HR 142 Hypotensive but MAP >70 Not in any form of distress, morbidly obese with anasarca and generalized edema Speaks full sentences not in any form of distress Chest is clear to auscultation bilaterally anteriorly Heart sound: Rapid Abdomen: Is obese, no palpable abnormalities Extremities: Bilateral pitting pedal edema, bilateral lower extremity redness, no differential warmth, no tenderness Integument: Multiple ecchymoses, weeping skin lesions in flexural surfaces General appearance: Present: A&O X 3, morbidly obese, pleasant, no acute distress - Head Head exam: Present: atraumatic, normocephalic Internal Medicine: Result - Labs CBC & Chem 7: 12/14/16 06:34 12/13/16 02:49 Labs: Short CBC 12/14/16 Range/Units 06:34 WBC 11.4 H (4.3-11.1) K/mcL Hgb 11.3 L (11.5-15.4) g/dL Hct 33.5 L (35.3-44.9) % Plt Count 203 (140-400) K/mcL Neutrophils # 8.1 (1.6-8.9) K/mcL - ABG Interpretation ABG results: ABG ABG pH 7.49 pH Units (7.32-7.45) H 12/14/16 04:10 ABG pCO2 35 mmHg (35-45) 12/14/16 04:10 ABG pO2 97 mmHg (85-104) 12/14/16 04:10 ABG O2 Saturation 98 % (95-98) 12/14/16 04:10 - Impressions Impressions Chest X-Ray 12/13/16 13:49 IMPRESSION: 1. No radiographic finding to account for patient's shortness of breath. D/ / Mustapha Rajput MD / Mustapha Rajput MD Interpreting Provider: Mustapha Rajput MD - VTE Reasons for not Prescribing Prophylaxis: Not indicated-Anticoagulated or INR therapeutic Consult Discharge Plan - Plan Referrals: Carolyn Reardon DO [Partnered Physician] - 12/20/16 9:30 am Monica Chahal CNP [Primary Care Provider] -
[2016-12-14] MEDS: Meropenem 500 MG in 0.9 % Sodium Chloride Mini Bag 100 ML IVPB SCH (09:19)
[2016-12-14] MEDS: Lactobacillus 1 EACH CAP.SPRINK PO SCH ×2 (09:22→22:41)
[2016-12-14] MEDS: Aspirin Enteric Coated 81 MG Tablet PO SCH (09:23)
--- NOTE | 2016-12-14 10:45 | Electrocardiograph Report ---
[place] [id number] Test Date: 2016-12-13 Pat Name: Aixa Golden Department: 109 Room: 2N15 Gender: F Stem Shaper: ODETTE : 1950 Requested By: Nestor Gordon Order Number: [id number] Reading MD: Angelique Sheridan Measurements Intervals [place] Rate: 109 P: 209 MA: 127 QRS: -13 QRSD: 78 T: 172 QT: 310 QTc: 374 Interpretive Statements SINUS TACHYCARDIA WITH FREQUENT ECTOPIC PREMATURE COMPLEXES LOW QRS VOLTAGE IN PRECORDIAL LEADS ST DEVIATION AND MODERATE T-WAVE ABNORMALITY, CONSIDER LATERAL ISCHEMIA Electronically Signed On 12-14-2016 10:43:11 EDT by Angelique Sheridan
[2016-12-14 13:08] LABS: Alanine Aminotransferase 68 Units/L (0-55); Albumin/Globulin Ratio 0.5 (1.1-2.2); Alkaline Phosphatase 286 Units/L (38-126); Aspartate Amino Transferase 154 Units/L (5-34); BUN/Creatinine Ratio 16 (6-26); Bilirubin,Direct 3.6 mg/dL (0.0-0.5); Bilirubin,Indirect 0.9 mg/dL (0.0-1.2); Bilirubin,Total 4.5 mg/dL (0.2-1.2); Blood Urea Nitrogen 13 mg/dL (7-20); Calcium 7.5 mg/dL (8.6-10.8); Carbon Dioxide 23 mEq/L (19-29); Chloride 101 mEq/L (98-109); Globulin 3.4 g/dL (2.4-3.5); Glucose 131 mg/dL (70-99); Osmolality,Calculated 280 (280-300); Potassium 3.4 mEq/L (3.5-4.5); Sodium 134 mEq/L (136-145); eGFR For African Americans > 60 (> 60); eGFR For Non-African Americans > 60 (> 60)
[2016-12-14 13:17] LABS: Albumin 1.6 g/dL (3.5-5.0)
[2016-12-14] MEDS: *HR* Digoxin 0.125 MG TABLET PO SCH (13:41)
[2016-12-14] MEDS ORDERED: Potassium Chloride Elixir 20 MEQ/15 ML UDC PO ONE (17:16)
[2016-12-14] MEDS: Ertapenem 1,000 MG in 0.9 % Sodium Chloride Mini Bag 100 ML IVPB SCH (18:19)
[2016-12-14] MEDS: *HR* Rivaroxaban 10 MG TABLET PO SCH (18:28)
[2016-12-15 05:14] LABS: Basophils # 0.1 K/mcL (0.0-0.2); Basophils % 0.5 %; Eosinophils # 1.3 K/mcL (0.0-0.6); Hematocrit 32.1 % (35.3-44.9); Hemoglobin 11.1 g/dL (11.5-15.4); Immature Granulocytes % 0.8 % (0-4); Lymphocytes # 2.7 K/mcL (0.6-4.6); Lymphocytes % 19.1 %; Mean Corpuscular HGB Conc 34.6 g/dL (31.6-35.5); Mean Corpuscular Hemoglobin 27.9 pg (28.0-33.3); Mean Corpuscular Volume 80.7 fL (83.0-100.0); Mean Platelet Volume 11.3 fL (9.4-12.4); Monocytes % 7.1 %; Neutrophils # 8.9 K/mcL (1.6-8.9); Platelet Count 220 K/mcL (140-400); Red Blood Count 3.98 M/mcL (3.82-4.97); Red Cell Distribution Width 14.3 % (11.5-14.5); Segmented Neutrophils % 63.5 %
[2016-12-15 05:21] LABS: Alanine Aminotransferase 60 Units/L (0-55); Albumin 1.5 g/dL (3.5-5.0); Albumin/Globulin Ratio 0.5 (1.1-2.2); Alkaline Phosphatase 318 Units/L (38-126); Aspartate Amino Transferase 156 Units/L (5-34); BUN/Creatinine Ratio 17 (6-26); Bilirubin,Total 3.9 mg/dL (0.2-1.2); Blood Urea Nitrogen 12 mg/dL (7-20); Calcium 7.5 mg/dL (8.6-10.8); Carbon Dioxide 27 mEq/L (19-29); Chloride 101 mEq/L (98-109); Globulin 3.2 g/dL (2.4-3.5); Glucose 51 mg/dL (70-99); Magnesium 1.7 mg/dL (1.6-2.6); Osmolality,Calculated 275 (280-300); Potassium 3.5 mEq/L (3.5-4.5); Sodium 134 mEq/L (136-145); Total Protein 4.7 g/dL (6.0-8.3); eGFR For African Americans > 60 (> 60); eGFR For Non-African Americans > 60 (> 60)
[2016-12-15] MEDS: Amiodarone Premix 360 MG/200 ML BAG IVC SCH ×2 (06:44→22:13)
[2016-12-15] MEDS: Lactobacillus 1 EACH CAP.SPRINK PO SCH ×2 (08:40→22:07)
[2016-12-15] MEDS: Aspirin Enteric Coated 81 MG Tablet PO SCH (08:40)
[2016-12-15] MEDS: *HR* Digoxin 0.125 MG TABLET PO SCH (08:40)
--- NOTE | 2016-12-15 09:19 | Cardiology Progress Note ---
Date of Encounter: 12/15/16 Time of Encounter: 09:15 Assessment and Plan (1) Sepsis Current Visit: Yes Status: Acute Per Cardiology: Suspected UTI and sepsis. Management per primary service. On antibiotics. Suspect contributing factor to A. fib with RVR. Qualifiers: Sepsis type: sepsis due to unspecified organism Qualified Code(s): A41.9 - Sepsis, unspecified organism (2) Atrial fibrillation with RVR Current Visit: Yes Status: Acute Per Cardiology: Noted to have brief paroxysmal atrial fibrillation during last hospital stay September 2016 managed with BB and CCB (xarelto). Remains A. fib with RVR-- avg HR past 12 hrs 124. Not on cardizem gtt d/t hypotension-- systolic blood pressure in the 80-90s. Received IV digoxin 0.25 mg 2 per primary service. Now on amiodarone drip and . Mg improved, now 1.7. Suspect will be challenging to rate control until underlying comorbids improve. Regarding long-term anticoagulation, on Xarelto 20 mg PO daily. Some hematuria noted in [place]. H&H slightly downward trending. Will need to monitor closelly. (3) CAD (coronary artery disease) Current Visit: No Status: Chronic Per Cardiology: History of CAD with last heart catheterization October 04, 2016 which showed mid LAD 30%, mid circumflex 40%, patent OM 2 stent, mid RCA 30% stenosis. Troponin negative. On aspirin. BB off d/t hypotension. Not on statin due to history of myalgias. Qualifiers: Coronary Disease-Associated Artery/Lesion type: [place] artery [place] vs. transplanted heart: [place] heart Associated angina: angina presence unspecified Qualified Code(s): I25.10 - Atherosclerotic heart disease of [place] coronary artery without angina pectoris (4) Hypomagnesemia Current Visit: Yes Status: Acute Per Cardiology: Improved from 1.2 to 2.1, monitor. (5) Lower extremity edema Current Visit: No Status: Chronic Per Cardiology: CXR shows no evidence of CHF. Echo from July 2016 showed EF preserved 60%, mild diastolic dysfunction, mild to moderate MR, no pulmonary hypertension. BNP noted to be only 334. Denies SOB. No diuresis warranted and SBP most likely will not tolerate. Albumin 1.5. Legs in GERARD wraps. Can repeat limited echo once rate controlled if clinically warranted. Qualifiers: Laterality: bilateral Qualified Code(s): R60.0 - Localized edema Discussion w patient/family: The assessment and plan as outlined above was discussed with the patient who expressed understanding and agreement. All questions were answered. Thank you for involving us in the care of your patient. Please call with any questions. Subjective Principal diagnosis: Afib RVR Interval history: Patient alert and oriented 3. She denies any chest pain, short of breath, palpitations. Reports continues to feel fatigue and nausea with taking pills, however slightly improved today. Denies any new concerns. Objective Vital Signs, Last 4 Hours Temp Pulse Resp BP Pulse Ox 12/15/16 08:52 89/79 12/15/16 07:43 112 98/52 12/15/16 06:52 98.5 F 136 18 97/71 97 12/15/16 06:00 130 97/71 General: Conversant HEENT: Atraumatic, Normocephaly Cardiac: No Murmur, Other (Irregularly irregular) Lungs: Normal Breath Sounds, No Wheeze, Rales, Rhonchi Neuro: Alert and responsive, No focal deficits noted Extremities: Other (Bilateral Gerard wraps in place) Results 12/15/16 04:50 12/15/16 04:50 Lab Results Laboratory Tests 12/13/16 12/14/16 12/15/16 02:49 06:34 04:50 Hgb 12.2 11.3 L 11.1 L Hct 34.5 L 33.5 L 32.1 L Magnesium Albumin 12/15/16 04:50 Hgb Hct Magnesium 1.7 Albumin 1.5 L Intake & Output 12/12/16 12/13/16 12/14/16 12/15/16 23:59 23:59 23:59 23:59 Intake Total 0 / 0 2019 1040 / 1040 300 / 300 Output Total 545 / 545 100 / 100 130 / 130 Balance 0 / 0 1475 / 1475 940 / 940 170 / 170 Weight 136.5 kg 136.7 kg 136.7 kg Active Medications Acetaminophen (Tylenol) 650 mg PO Q6HR PRN PRN Reason: Mild Pain (1-3); fever Stop: 06/14/17 01:50 Last Admin: 12/14/16 09:23 Dose: 650 mg Aspirin (Aspirin Ec) 81 mg PO DAILY [facility] Stop: 06/14/17 12:46 Last Admin: 12/15/16 08:40 Dose: 81 mg Dextrose/Water (Dextrose 50% (Syg)) 25 ml IVP AD PRN PRN Reason: Hypoglycemia Stop: 06/14/17 01:59 Digoxin (Lanoxin) 0.125 mg PO DAILY [facility] Stop: 06/15/17 12:31 Last Admin: 12/15/16 08:40 Dose: 0.125 mg Glucagon (Glucagen) 1 mg IM ONCE PRN PRN Reason: Hypoglycemia Stop: 06/14/17 01:59 Glucose (Gluctose) 15 gm PO ONCE PRN PRN Reason: Hypoglycemia Stop: 06/14/17 01:59 Glucose (Gluctose) 30 gm PO ONCE PRN PRN Reason: Hypoglycemia Stop: 06/14/17 01:59 Dextrose (Dextrose 5%) 1,000 mls @ 100 mls/hr IVC .Q10H PRN PRN Reason: HYPOGLYCEMIA Stop: 06/14/17 01:59 Amiodarone HCl/Dextrose (Amiodarone 360mg/200ml Drip Premix) 360 mg in 200 mls @ 16.667 mls/hr IVC CONT BEATA PRN Reason: 0.5 MG/MIN Stop: 06/14/17 12:01 Last Admin: 12/15/16 06:44 Dose: 0.5 mg/min, 16.667 mls/hr Ertapenem 1,000 mg/ Sodium (Chloride) 100 mls @ 100 mls/hr IVPB Q24H [facility] Stop: 06/15/17 16:01 Last Admin: 12/14/16 18:19 Dose: 100 mls/hr Lactobacillus Acidophilus/Rhamnosus (Culturelle) 1 each PO BID [facility] Stop: 06/14/17 09:01 Last Admin: 12/15/16 08:40 Dose: 1 each Naloxone HCl (Narcan) 0.4 mg IVP Q2MIN PRN PRN Reason: Opioid Reversal Stop: 06/14/17 01:50 Rivaroxaban (Xarelto) 20 mg PO 1700 [facility] Stop: 06/14/17 17:01 Last Admin: 12/14/16 18:28 Dose: 20 mg - EKG Interpretation EKG results cardiology: other - VTE Reasons for not Prescribing Prophylaxis: Not indicated-Anticoagulated or INR therapeutic Consult Discharge Plan - Plan Referrals: Carolyn Reardon DO [Partnered Physician] - 12/20/16 9:30 am Monica Chahal CNP [Primary Care Provider] -
--- NOTE | 2016-12-15 12:19 | Internal Med Progress Note ---
Date of Encounter: 12/15/16 Time of Encounter: 12:19 - Assessment and plan (1) Sepsis Current Visit: Yes Status: Acute Assessment and plan: Suspected source is UTI Afebrile, tachycardia persists Leukocytosis again worsened today, possibly due to dehydration patient remains in Afib lactic acidosis has resolved Continue Meropenem Preliminary urine culture with yeast species Will start on Fluconazole Continue meropenem Follow final urine culture results, will deescalate prn Qualifiers: Sepsis type: sepsis due to unspecified organism Qualified Code(s): A41.9 - Sepsis, unspecified organism (2) UTI (urinary tract infection) Current Visit: Yes Status: Acute Assessment and plan: No urine culture on chart Prior hx of MDRO E.Coli On Meropenem Leukocytosis worse today 14 (11) Continue meropenem, urine culture with >100,000 yeast colonies, add fluconazole po for now Follow final urine culture Qualifiers: Urinary tract infection type: site unspecified Hematuria presence: without hematuria Qualified Code(s): N39.0 - Urinary tract infection, site not specified (3) Generalized weakness Current Visit: Yes Status: Chronic Assessment and plan: PT/OT eval prior to discharge Patient was resident of SNF for rehab prior to admission (4) Anasarca Current Visit: Yes Status: Chronic Assessment and plan: Chronic, continue compression stockings (5) Diabetes Current Visit: Yes Status: Chronic Assessment and plan: A1C 6.3% Continue Sliding scale FS ACHS Qualifiers: Diabetes mellitus type: type 2 Diabetes mellitus complication status: with hypoglycemia Diabetes mellitus senior care insulin use: without terminal operations supervisor use Qualified Code(s): E11.649 - Type 2 diabetes mellitus with hypoglycemia without coma (6) Atrial fibrillation with RVR Current Visit: Yes Status: Acute Assessment and plan: Persistent Low BP limits medication options Cardiology following, Now on digoxin Will replace K and Amg Mag minimum 2, K minimum 4 High risk patient due to digoxin which needs monitoring (7) Hypoglycemia associated with diabetes Current Visit: Yes Status: Acute Assessment and plan: Improved Sliding scale insulin only prn (8) Skin excoriation Current Visit: Yes Status: Chronic Assessment and plan: Continue dressing Add nystatin powder (9) Lactic acidosis Current Visit: Yes Status: Acute Assessment and plan: Resolved Secondary to hypoperfusion and Afib with RVR (10) Chronic anticoagulation Current Visit: Yes Status: Chronic Assessment and plan: Continue Xarelto Monitor H/H Urine looks cloudy, will monitor (11) Morbid obesity with BMI of 50.0-59.9, adult Current Visit: Yes Status: Chronic Assessment and plan: Lifestyle changes (12) Dysphagia Current Visit: Yes Status: Chronic Assessment and plan: Speech and swallow eval noted, follow recommendations Qualifiers: Dysphagia type: unspecified Qualified Code(s): R13.10 - Dysphagia, unspecified (13) Hypomagnesemia Current Visit: Yes Status: Acute Assessment and plan: Replaced, continue to monitor (14) Hypokalemia Current Visit: Yes Status: Acute Assessment and plan: Replaced, continue to monitor (15) CHF (congestive heart failure) Current Visit: Yes Status: Chronic Assessment and plan: Patient with generalized edema However, CXR shows no evidence of CHF. Echo from July 2016 showed EF preserved 60%, mild diastolic dysfunction, mild to moderate MR, no pulmonary hypertension. BNP noted to be only 334. Continue to monitor respiratory status No diuresis for now Anasarca possibly from hypoalbuminemia Qualifiers: Congestive heart failure type: diastolic Congestive heart failure chronicity: chronic Qualified Code(s): I50.32 - Chronic diastolic (congestive ) heart failure (16) Oliguria Current Visit: Yes Status: Acute Assessment and plan: Will give IVF boluses and albumin Continue strict I/O - Subjective Interval history: Seen and evaluated at bedside with RN Denies new complains patient with Morbid Obesity , multiple skin lesions with excoriation and weeping , CHFpEF, COPD, Afib, s/p [facility] 09/2016 without any significant CAD, DM II being managed for Afib with RVR with hypotension and lactic acidosis, Severe sepsis secondary to UTI, Lactic acidosis and hypoglycemia has improved She continues to be borderline hypotensive Urine output in the past shift <300cc HR is still mostly uncontrolled - Constitutional Vitals: Temp Pulse Resp BP Pulse Ox 98.6 F 132 18 85/63 96 12/15/16 11:28 12/15/16 11:28 12/15/16 11:28 12/15/16 11:28 12/15/16 11:28 VS-Afib with RVR HR 112-120 Hypotensive but MAP >70 Not in any form of distress, morbidly obese with anasarca and generalized edema Speaks full sentences not in any form of distress Chest is clear to auscultation bilaterally anteriorly Heart sound: Rapid, no murmurs Abdomen: Is obese, no palpable abnormalities Extremities: Bilateral pitting pedal edema, bilateral lower extremity redness, no differential warmth, no tenderness Integument: Multiple ecchymoses, weeping skin lesions in flexural surfaces General appearance: Present: A&O X 3, morbidly obese, pleasant, no acute distress Internal Medicine: Result - Labs CBC & Chem 7: 12/15/16 04:50 12/15/16 04:50 Labs: Short CBC 12/15/16 Range/Units 04:50 WBC 14.1 H (4.3-11.1) K/mcL Hgb 11.1 L (11.5-15.4) g/dL Hct 32.1 L (35.3-44.9) % Plt Count 220 (140-400) K/mcL Neutrophils # 8.9 (1.6-8.9) K/mcL BMP 12/14/16 12/15/16 09:39 04:50 Sodium 134 L 134 L Potassium 3.4 L 3.5 Chloride 101 101 Carbon Dioxide 23 27 BUN 13 12 Creatinine 0.81 0.71 Glucose 131 H 51 L Calcium 7.5 L 7.5 L Liver Function 12/14/16 12/15/16 Range/Units 09:39 04:50 Total Bilirubin 4.5 H 3.9 H (0.2-1.2) mg/dL Direct Bilirubin 3.6 H (0.0-0.5) mg/dL AST 154 H 156 H (5-34) Units/L ALT 68 H 60 H (0-55) Units/L Alkaline Phosphatase 286 H 318 H (38-126) Units/L Albumin 1.6 L 1.5 L (3.5-5.0) g/dL - ABG Interpretation ABG results: ABG ABG pH 7.49 pH Units (7.32-7.45) H 12/14/16 04:10 ABG pCO2 35 mmHg (35-45) 12/14/16 04:10 ABG pO2 97 mmHg (85-104) 12/14/16 04:10 ABG O2 Saturation 98 % (95-98) 12/14/16 04:10 - VTE Reasons for not Prescribing Prophylaxis: Not indicated-Anticoagulated or INR therapeutic Consult Discharge Plan - Plan Referrals: Carolyn Reardon DO [Partnered Physician] - 12/20/16 9:30 am Monica Chahal CNP [Primary Care Provider] -
[2016-12-15] MEDS ORDERED: Potassium Chloride Elixir 20 MEQ/15 ML UDC PO ONE (12:51)
--- NOTE | 2016-12-15 12:58 | Event Note ---
Date of Encounter: 12/15/16 Time of Encounter: 13:00 - Cardiology Event Note Per discussion with Dr. Winters, will check bilateral VD to r/o DVT-- remains afib RVR. Question compliance with Xarelto-- patient reports severe nausae at ECF and may not have received all meds. No hypoxia. May consider CT to r/o PE since continues to remain afib RVR. CT negative for PE 07/2016 and and bilateral VD 07/2016. Continue Xarelto for now, but monitor H&H and urine closely.
[2016-12-15] MEDS: 0.9 % Sodium Chloride 1,000 ML IVC SCH ×2 (13:34→17:39)
[2016-12-15] MEDS: Miconazole 2% ointment 114 GM TUBE TP SCH (13:34)
[2016-12-15] MEDS: Fluconazole 100 MG TABLET PO SCH (14:47)
[2016-12-15] MEDS: Albumin 25% 25gram/100mL 25 GM/100 ML IV.SOLN IVPB SCH (14:47)
[2016-12-15] MEDS: Ertapenem 1,000 MG in 0.9 % Sodium Chloride Mini Bag 100 ML IVPB SCH (16:46)
[2016-12-15] MEDS: *HR* Rivaroxaban 10 MG TABLET PO SCH (16:47)
[2016-12-15] MEDS: Magnesium Oxide 400 MG TABLET PO SCH (22:08)
[2016-12-16] MEDS: Albumin 25% 25gram/100mL 25 GM/100 ML IV.SOLN IVPB SCH ×2 (01:22→08:41)
[2016-12-16] MEDS: Nystatin POWDER 30 GM BOTTLE TP SCH ×3 (01:23→22:32)
[2016-12-16 05:16] LABS: Magnesium 1.6 mg/dL (1.6-2.6)
[2016-12-16 05:30] LABS: Digoxin 0.7 ng/mL (0.8-2.0)
[2016-12-16] MEDS: Amiodarone Premix 360 MG/200 ML BAG IVC SCH (08:38)
[2016-12-16 09:13] LABS: BUN/Creatinine Ratio 17 (6-26); Blood Urea Nitrogen 10 mg/dL (7-20); Calcium 7.5 mg/dL (8.6-10.8); Carbon Dioxide 25 mEq/L (19-29); Chloride 102 mEq/L (98-109); Glucose 42 mg/dL (70-99); Osmolality,Calculated 272 (280-300); Potassium 3.7 mEq/L (3.5-4.5); Sodium 133 mEq/L (136-145); eGFR For African Americans > 60 (> 60); eGFR For Non-African Americans > 60 (> 60)
--- NOTE | 2016-12-16 09:16 | Internal Med Progress Note ---
Date of Encounter: 12/16/16 Time of Encounter: 09:16 - Assessment and plan (1) Sepsis Current Visit: Yes Status: Acute Assessment and plan: Suspected source is UTI Afebrile, tachycardia has improved Leukocytosis improved lactic acidosis has resolved Continue Etapernem Preliminary urine culture with yeast species Continue Fluconazole Follow final urine culture results, will deescalate prn Qualifiers: Sepsis type: sepsis due to unspecified organism Qualified Code(s): A41.9 - Sepsis, unspecified organism (2) UTI (urinary tract infection) Current Visit: Yes Status: Acute Assessment and plan: No urine culture on chart Prior hx of MDRO E.Coli On Etapernem, continue Leukocytosis slightly improved , urine culture with >100,000 yeast colonies, add fluconazole po for now Follow final urine culture Qualifiers: Urinary tract infection type: site unspecified Hematuria presence: without hematuria Qualified Code(s): N39.0 - Urinary tract infection, site not specified (3) Generalized weakness Current Visit: Yes Status: Chronic Assessment and plan: PT/OT eval prior to discharge Patient was resident of SNF for rehab prior to admission (4) Anasarca Current Visit: Yes Status: Chronic Assessment and plan: Chronic, continue compression stockings (5) Diabetes Current Visit: Yes Status: Chronic Assessment and plan: A1C 6.3% Continue Sliding scale FS ACHS Qualifiers: Diabetes mellitus type: type 2 Diabetes mellitus complication status: with hypoglycemia Diabetes mellitus shelter insulin use: without shelter use Qualified Code(s): E11.649 - Type 2 diabetes mellitus with hypoglycemia without coma (6) Atrial fibrillation with RVR Current Visit: Yes Status: Acute Assessment and plan: Improved Low BP limits medication options Cardiology following, Now on digoxin, continnue same, continue amio po Will replace K and Mag Mag minimum 2, K minimum 4 High risk patient due to digoxin which needs monitoring (7) Hypoglycemia associated with diabetes Current Visit: Yes Status: Acute Assessment and plan: Improved Sliding scale insulin only prn (8) Skin excoriation Current Visit: Yes Status: Chronic Assessment and plan: Continue dressing Add nystatin powder (9) Lactic acidosis Current Visit: Yes Status: Resolved Assessment and plan: Resolved Secondary to hypoperfusion and Afib with RVR (10) Chronic anticoagulation Current Visit: Yes Status: Chronic Assessment and plan: Continue Xarelto Monitor H/H Urine looks cloudy, will monitor (11) Morbid obesity with BMI of 50.0-59.9, adult Current Visit: Yes Status: Chronic Assessment and plan: Lifestyle changes (12) Dysphagia Current Visit: Yes Status: Chronic Assessment and plan: Speech and swallow eval noted, follow recommendations Qualifiers: Dysphagia type: unspecified Qualified Code(s): R13.10 - Dysphagia, unspecified (13) Hypomagnesemia Current Visit: Yes Status: Acute Assessment and plan: Replaced, continue to monitor (14) Hypokalemia Current Visit: Yes Status: Acute Assessment and plan: Improved, K 3.7, given one dose , continue to monitor (15) CHF (congestive heart failure) Current Visit: Yes Status: Chronic Assessment and plan: Patient with generalized edema However, CXR shows no evidence of CHF. Echo from July 2016 showed EF preserved 60%, mild diastolic dysfunction, mild to moderate MR, no pulmonary hypertension. BNP noted to be only 334. Continue to monitor respiratory status No diuresis for now Anasarca possibly from hypoalbuminemia Repeat ECHO today Qualifiers: Congestive heart failure type: diastolic Congestive heart failure chronicity: chronic Qualified Code(s): I50.32 - Chronic diastolic (congestive ) heart failure (16) Oliguria Current Visit: Yes Status: Acute Assessment and plan: Will give IVF boluses and albumin Continue strict I/O Renal USS Nephrology eval (17) Anemia Current Visit: Yes Status: Acute Assessment and plan: Possibly dilutional or patient was extremely dehydrated on admission No evidence of bleed Urine is concentrated and cloudy No bloody BM Continue to monitor Qualifiers: Anemia type: unspecified type Qualified Code(s): D64.9 - Anemia, unspecified (18) Hypotension Current Visit: Yes Status: Acute Assessment and plan: Possibly secondary to severe sepsis Continue IVF boluses Obtain cortisol, TSH, ECHO Maintain MAP >70 Patient does not need pressors as at this time of review Qualifiers: Hypotension type: unspecified hypotension type Qualified Code(s): I95.9 - Hypotension, unspecified - Subjective Interval history: Seen and evaluated at bedside 66 F patient with Morbid Obesity , multiple skin lesions with excoriation and weeping , CHFpEF, COPD, Afib, s/p C 09/2016 without any significant CAD, DM II being managed for Afib with RVR with hypotension and lactic acidosis, Severe sepsis secondary to UTI, Lactic acidosis and hypoglycemia has improved Urine output in the past shift ~200cc despite 2L bolus Her BP has been stable with MAP >80 persistently HR too has improved with Digoxin and amiodarone Digoxin level subtherapeutic Obtain ECHO now Will send TSH, cortisol levels this a.m, as well as check chem for K, mag 1.7, will replace Will consult nephrology for oliguria Obtain stat retroperitoneum USS Urine culture with yeast, pending sensitivity Rpt Hb as current CBC looks dilutional, type and screen. ASA held - Constitutional Vitals: Temp Pulse Resp BP Pulse Ox 98.2 F 84 17 85/56 96 12/16/16 01:20 12/16/16 08:31 12/16/16 07:22 12/16/16 08:31 12/16/16 07:22 General appearance: Present: A&O X 3, morbidly obese, pleasant, no acute distress Exam: VS-Afib HR 89-100 Hypotensive but MAP >80 Not in any form of distress, morbidly obese with anasarca and generalized edema Speaks full sentences not in any form of distress Chest is clear to auscultation bilaterally anteriorly Heart sound: Rapid, no murmurs Abdomen: Is obese, no palpable abnormalities Extremities: Bilateral pitting pedal edema, bilateral lower extremity redness, no differential warmth, no tenderness Integument: Skin lesions are dressed Internal Medicine: Result - Labs CBC & Chem 7: 12/16/16 10:31 12/16/16 04:20 - ABG Interpretation ABG results: ABG ABG pH 7.49 pH Units (7.32-7.45) H 12/14/16 04:10 ABG pCO2 35 mmHg (35-45) 12/14/16 04:10 ABG pO2 97 mmHg (85-104) 12/14/16 04:10 ABG O2 Saturation 98 % (95-98) 12/14/16 04:10 - VTE Reasons for not Prescribing Prophylaxis: Not indicated-Anticoagulated or INR therapeutic Consult Discharge Plan - Plan Referrals: Carolyn Reardon DO [Partnered Physician] - 12/27/16 9:30 am Monica Chahal, [place] [Primary Care Provider] -
[2016-12-16] MEDS ORDERED: 0.9 % Sodium Chloride 1,000 ML IVC ONE (09:21)
[2016-12-16 09:35] LABS: Thyroid Stimulating Hormone 2.992 mcIU/mL (0.350-4.840)
[2016-12-16] MEDS: Magnesium Oxide 400 MG TABLET PO SCH ×3 (10:26→22:31)
[2016-12-16] MEDS: Fluconazole 100 MG TABLET PO SCH (10:26)
[2016-12-16] MEDS: Lactobacillus 1 EACH CAP.SPRINK PO SCH ×3 (10:26→22:31)
[2016-12-16] MEDS: Aspirin Enteric Coated 81 MG Tablet PO SCH (10:27)
[2016-12-16] MEDS: Miconazole 2% ointment 114 GM TUBE TP SCH (10:27)
[2016-12-16] MEDS: *HR* Digoxin 0.125 MG TABLET PO SCH (10:27)
[2016-12-16 10:38] LABS: Basophils # 0.1 K/mcL (0.0-0.2); Basophils % 0.4 %; Eosinophils # 0.8 K/mcL (0.0-0.6); Eosinophils % 6.1 %; Hematocrit 27.9 % (35.3-44.9); Hemoglobin 9.8 g/dL (11.5-15.4); Immature Granulocytes % 1.3 % (0-4); Lymphocytes # 2.1 K/mcL (0.6-4.6); Mean Corpuscular HGB Conc 35.1 g/dL (31.6-35.5); Mean Corpuscular Volume 79.7 fL (83.0-100.0); Mean Platelet Volume 10.9 fL (9.4-12.4); Monocytes # 0.9 K/mcL (0.0-1.3); Monocytes % 6.7 %; Neutrophils # 9.3 K/mcL (1.6-8.9); Platelet Count 185 K/mcL (140-400); Red Cell Distribution Width 14.3 % (11.5-14.5); Segmented Neutrophils % 69.5 %
--- NOTE | 2016-12-16 11:00 | Cardiology Progress Note ---
Date of Encounter: 12/16/16 Time of Encounter: 10:57 Assessment and Plan (1) Atrial fibrillation with RVR Current Visit: Yes Status: Acute Per Cardiology: Noted to have brief paroxysmal atrial fibrillation during last hospital stay September 2016 managed with BB and CCB (xarelto). Was A. fib with RVR this admission in setting of sepsis-- avg HR past 24 hrs 109--improved. Now appears to be SR--HR 70s-80s at bedside. Will obtain EKG as artifact makes telemetry difficult to interpret. Not on cardizem or BB due to hypotension-- systolic blood pressure in the 80- 90s. Currently on Amiodarone gtt and daily PO Digoxin 125mcg. Will transition to PO Amiodarone 200mg BID and stop gtt. Regarding long-term anticoagulation, on Xarelto 20 mg PO daily. Hematuria noted in Go. H&H downward trending, HGB was 11.1 yesterday, 9.8 today. Also dried blood noted in nostril. Will stop ASA. Continue Xarelto for now. Will need to monitor closely. (2) Lower extremity edema Current Visit: No Status: Chronic Per Cardiology: CXR shows no evidence of CHF. Echo from July 2016 showed EF preserved 60%, mild diastolic dysfunction, mild to moderate MR, no pulmonary hypertension. BNP noted to be only 334. Denies SOB. No diuresis warranted and SBP most likely will not tolerate. Preliminary lower extremity dopplers negative for DVT. Albumin 1.5. Legs in TAMARA wraps. Will repeat limited echo now that HR is controlled. Further recommendations to follow. Qualifiers: Laterality: bilateral Qualified Code(s): R60.0 - Localized edema (3) CAD (coronary artery disease) Current Visit: No Status: Chronic Per Cardiology: History of CAD with last heart catheterization October 04, 2016 which showed mid LAD 30%, mid circumflex 40%, patent OM 2 stent, mid RCA 30% stenosis. Troponin negative. On aspirin. No BB d/t hypotension. Not on statin due to history of myalgias. Will now stop ASA with downtrending H&H with blood noted in go and evidence of epistaxis. Qualifiers: Coronary Disease-Associated Artery/Lesion type: [place] artery [place] vs. transplanted heart: [place] heart Associated angina: angina presence unspecified Qualified Code(s): I25.10 - Atherosclerotic heart disease of [place] coronary artery without angina pectoris (4) Sepsis Current Visit: Yes Status: Acute Per Cardiology: Suspected UTI and sepsis. Management per primary service. On antibiotics. Suspect contributing factor to A. fib with RVR. Qualifiers: Sepsis type: sepsis due to unspecified organism Qualified Code(s): A41.9 - Sepsis, unspecified organism Discussion w patient/family: The assessment and plan as outlined above was discussed with the patient and/or family members who expressed understanding and agreement. All questions were answered. Thank you for involving us in the care of your patient. Please call with any questions. I will discuss all the above with Dr. Winters and make changes as necessary. Subjective Principal diagnosis: Afib RVR Interval history: HR better controlled --80s at bedside and on tele appears to be in SR at times, but difficult to interpret due to artifact. Pt denies any chest pain. Reports episode of dyspnea this AM associated with wheezing since resolved. Blood noted in go. Evidence of old blood in nasal cavity, states she is unsure when she had nose bleeding. Preliminary lower extremity dopplers negative for DVT. HGB has decreased from 11.1 yesterday to 9.8 today. Pt remains hypotensive BP 80s systolic. Objective Vital Signs, Last 4 Hours Pulse Resp BP Pulse Ox 12/16/16 10:16 87 92/56 12/16/16 08:31 84 85/56 12/16/16 07:22 117 17 83/57 96 12/16/16 07:00 93 83/57 Vital Signs Temp Pulse Resp BP Pulse Ox 12/16/16 10:16 87 92/56 12/16/16 08:31 84 85/56 12/16/16 07:22 117 17 83/57 96 12/16/16 07:00 93 83/57 12/16/16 06:00 88 86/58 12/16/16 05:00 106 94/64 12/16/16 04:00 110 97/50 12/16/16 03:00 99 79/35 12/16/16 02:00 92 90/52 12/16/16 01:20 98.2 F 108 16 97 12/16/16 01:00 101 101/46 12/16/16 00:00 96 81/45 12/15/16 23:00 112 85/51 12/15/16 22:00 99 88/49 12/15/16 21:00 106 89/51 12/15/16 20:22 98.8 F 113 14 100/78 97 12/15/16 20:00 110 100/78 12/15/16 16:07 98.4 F 119 18 94/57 95 12/15/16 11:28 98.6 F 132 18 85/63 96 Intake and Output 12/15/16 12/16/16 12/16/16 23:59 07:59 15:59 Intake Total 1880 / 1880 100 / 100 200 / 200 Output Total 235 / 235 165 / 165 150 / 150 Balance 1645 / 1645 -65 / -65 50 / 50 Intake: IV Fluids 1400 / 1400 100 / 100 200 / 200 0.9 % Sodium Chloride 1, 1000 / 1000 000 ML @ 250 mls/hr IVC . Q4H BEATA Rx#:[id number] Amiodarone 360mg/200mL 200 / 200 200 / 200 Drip Premix 360 mg In 200 ml @ 0.5 MG/MIN 16.667 mls/hr IVC CONT BEATA Rx#: [id number] Flexbumin 25 gm In 100 ml 100 / 100 100 / 100 @ 60 mls/hr IVPB Q8HR BEATA Rx#:[id number] INVanz 1,000 MG In 0.9 % 100 / 100 Sodium Chloride (Mini-Bag +) 100 ML @ 100 mls/hr IVPB Q24H BEATA Rx#: [id number] Oral 480 / 480 Output: Urine 165 / 165 150 / 150 Urethral (Go) 165 / 165 150 / 150 Catheter 235 / 235 Other: Meal Dinner Percent of Meal Consumed 20% Blood Glucose* 92 51 74 General: Conversant, No Apparent Distress HEENT: Atraumatic, Normocephaly, Mucus Membranes Moist Neck: No JVD, Normal carotid pulses Cardiac: Reg Rate and Rhythm, Normal S1 and S2, No Murmur Lungs: Other (diminished) Neuro: Alert and responsive, No focal deficits noted Abdomen: Soft, Non-Tender Skin: No rashes noted on visualized skin Musculoskeletal: No Chest Wall Tenderness Extremities: Other (2+ BLE edema) Results 12/16/16 10:31 12/16/16 04:20 Lab Results 12/16/16 12/16/16 04:20 10:31 WBC 13.4 H Hgb 9.8 L Hct 27.9 L Plt Count 185 Sodium 133 L Potassium 3.7 Chloride 102 Carbon Dioxide 25 BUN 10 Creatinine 0.59 Glucose 42 L Calcium 7.5 L Magnesium 1.6 TSH 2.992 Short CBC 12/16/16 Range/Units 10:31 WBC 13.4 H (4.3-11.1) K/mcL Hgb 9.8 L (11.5-15.4) g/dL Hct 27.9 L (35.3-44.9) % Plt Count 185 (140-400) K/mcL Neutrophils # 9.3 H (1.6-8.9) K/mcL BMP 12/16/16 Range/Units 04:20 Sodium 133 L (136-145) mEq/L Potassium 3.7 (3.5-4.5) mEq/L Chloride 102 (98-109) mEq/L Carbon Dioxide 25 (19-29) mEq/L BUN 10 (7-20) mg/dL Creatinine 0.59 (0.57-1.11) mg/dL Glucose 42 L (70-99) mg/dL Calcium 7.5 L (8.6-10.8) mg/dL Active Medications Acetaminophen (Tylenol) 650 mg PO Q6HR PRN PRN Reason: Mild Pain (1-3); fever Stop: 06/14/17 01:50 Last Admin: 12/14/16 09:23 Dose: 650 mg Aspirin (Aspirin Ec) 81 mg PO DAILY BEATA Stop: 06/14/17 12:46 Last Admin: 12/15/16 08:40 Dose: 81 mg Dextrose/Water (Dextrose 50% (Syg)) 25 ml IVP AD PRN PRN Reason: Hypoglycemia Stop: 06/14/17 01:59 Digoxin (Lanoxin) 0.125 mg PO DAILY BEATA Stop: 06/15/17 12:31 Last Admin: 12/15/16 08:40 Dose: 0.125 mg Fluconazole (Diflucan) 400 mg PO DAILY BEATA Stop: 06/16/17 13:01 Last Admin: 12/15/16 14:47 Dose: 400 mg Glucagon (Glucagen) 1 mg IM ONCE PRN PRN Reason: Hypoglycemia Stop: 06/14/17 01:59 Glucose (Gluctose) 15 gm PO ONCE PRN PRN Reason: Hypoglycemia Stop: 06/14/17 01:59 Glucose (Gluctose) 30 gm PO ONCE PRN PRN Reason: Hypoglycemia Stop: 06/14/17 01:59 Dextrose (Dextrose 5%) 1,000 mls @ 100 mls/hr IVC .Q10H PRN PRN Reason: HYPOGLYCEMIA Stop: 06/14/17 01:59 Amiodarone HCl/Dextrose (Amiodarone 360mg/200ml Drip Premix) 360 mg in 200 mls @ 16.667 mls/hr IVC CONT BEATA PRN Reason: 0.5 MG/MIN Stop: 06/14/17 12:01 Last Admin: 12/16/16 08:38 Dose: 0.5 mg/min, 16.667 mls/hr Ertapenem 1,000 mg/ Sodium (Chloride) 100 mls @ 100 mls/hr IVPB Q24H BEATA Stop: 06/15/17 16:01 Last Infusion: 12/15/16 19:29 Dose: Infused Sodium Chloride (0.9 % Sodium Chloride) 1,000 mls @ 125 mls/hr IVC .Q8H BEATA Stop: 06/17/17 09:31 Lactobacillus Acidophilus/Rhamnosus (Culturelle) 1 each PO BID BEATA Stop: 06/14/17 09:01 Last Admin: 12/15/16 22:07 Dose: 1 each Magnesium Oxide (Mag-Ox) 400 mg PO BID BEATA PRN Reason: Protocol Stop: 06/16/17 21:01 Last Admin: 12/15/16 22:08 Dose: 400 mg Miconazole (Aloe [place] Antifungal Ointment) 1 appl TP DAILY BEATA Stop: 06/16/17 12:16 Last Admin: 12/15/16 13:34 Dose: 1 appl Naloxone HCl (Narcan) 0.4 mg IVP Q2MIN PRN PRN Reason: Opioid Reversal Stop: 06/14/17 01:50 Nystatin (Nystop) 1 appl TP BID BEATA Stop: 06/16/17 21:01 Last Admin: 12/16/16 01:23 Dose: 1 appl Rivaroxaban (Xarelto) 20 mg PO 1700 BEATA Stop: 06/14/17 17:01 Last Admin: 12/15/16 16:47 Dose: 20 mg - Imaging and Cardiology Echo: report reviewed Cardiac cath: report reviewed - EKG Interpretation EKG results cardiology: other (24 hour tele AVG HR 109, A-Fib, currently appears SR.) - VTE Reasons for not Prescribing Prophylaxis: Not indicated-Anticoagulated or INR therapeutic Consult Discharge Plan - Plan Referrals: Carolyn Reardon DO [Partnered Physician] - 12/27/16 9:30 am Monica Chahal, TEXTILE EXAMINER [Primary Care Provider] -
[2016-12-16] MEDS ORDERED: Potassium Chloride Elixir 20 MEQ/15 ML UDC PO ONE (12:21)
[2016-12-16] MEDS: 0.9 % Sodium Chloride 1,000 ML IVC SCH (12:32)
[2016-12-16] MEDS: *HR* Amiodarone 200 MG TABLET PO SCH ×2 (12:50→22:31)
[2016-12-16 13:12] LABS: Basophils # 0.1 K/mcL (0.0-0.2); Basophils % 0.4 %; Eosinophils % 8.1 %; Hemoglobin 9.8 g/dL (11.5-15.4); Lymphocytes # 1.5 K/mcL (0.6-4.6); Lymphocytes % 12.9 %; Mean Corpuscular HGB Conc 33.8 g/dL (31.6-35.5); Mean Corpuscular Hemoglobin 27.7 pg (28.0-33.3); Mean Corpuscular Volume 81.9 fL (83.0-100.0); Mean Platelet Volume 11.3 fL (9.4-12.4); Monocytes # 0.7 K/mcL (0.0-1.3); Monocytes % 5.9 %; Neutrophils # 8.4 K/mcL (1.6-8.9); Platelet Count 196 K/mcL (140-400); Red Blood Count 3.54 M/mcL (3.82-4.97); Red Cell Distribution Width 14.5 % (11.5-14.5); Segmented Neutrophils % 71.7 %
--- NOTE | 2016-12-16 16:06 | Nephrology Consult Note ---
Date of Encounter: 12/16/16 Time of Encounter: 14:00 Assessment and Plan (1) Decreased urine output Current Visit: Yes Status: Acute Patient presented to [facility] weak, septic, and in a. fib with rvr. She describes having decreased PO intake for several days prior to admission and she has not been eating a lot of her meals while in the hospital either. Per her documented I/Os she appears to be several liters positive since admission to the hospital, though her exact I/Os may be incorrectly documented. She has been having about 550 ml out/day, with 1 day appearing to have less, though in speaking with her nurse it is possible that it was just not documented. Either way, one would expect a greater amount of urinary output given her size. Her renal function has been normal during the duration of her admission. A retroperitoneal US was performed, but could not be accurately interpreted due to the patient body habitus. Patient also has a decreased albumin. The contents of her go bag appear dark with sentiments. Her decreased urine output could be a representation of dehydration/decreased circulating volume given her decreased PO recently. Her BUN and SCr continue in the normal range and do not appear to be disproportionate in value. Whether the decreased urine output is an early sign of impending kidney failure is difficult to say Patient would likely benefit from a nutrition consult to help address her nutritional needs Patient was put on IVF for the time being and is being monitored for signs of respiratory distress/compromise given her history of CHF Continue fluids for now Obtain a UA, serum osmolality, urine osmolality, urine electrolytes, urine protein/creatinine, urine eosinophils Continue to monitor renal function with daily chemistry Strict I/Os (2) Hypoalbuminemia Current Visit: Yes Status: Acute Patient hypoalbuminemia has been developing since 10/01 with unclear reason, aside from potential nutrition, or whether it is from urinary losses Plan as above (3) Anemia Current Visit: Yes Status: Acute Given decreases seen in patient hemoglobin, will obtain LDH, haptoglobin, B12, folate, and iron studies Qualifiers: Anemia type: unspecified type Qualified Code(s): D64.9 - Anemia, unspecified (4) Atrial fibrillation with RVR Current Visit: Yes Status: Acute Further management per her primary team and cardiology (5) Generalized weakness Current Visit: Yes Status: Chronic Patient weakness likely due to severe sepsis from UTI, hypoglycemia, and anemia Continued management per primary team (6) Hypotension Current Visit: Yes Status: Acute Patient has been having decreased blood pressures during her admission. With SBP as low as 77. Her current infection and SIRS is likely responsible for her decreased BP, but this could also be contributing to a decrease in circulating volume to be filtered by her kidneys and decreased urine output. Agree with continued IVF, patient should be monitored for any signs of respiratory third spacing with concerns of her histproteinory of HFpEF and hypoalbuminemia Qualifiers: Hypotension type: unspecified hypotension type Qualified Code(s): I95.9 - Hypotension, unspecified (7) UTI (urinary tract infection) Current Visit: Yes Status: Acute Patient presents with urine suggestive of a UTI. Urine culture has so far shown a yeast species, but patient has a history of E. coli MDRO UTIs, she has been on meropenem, and ertapenem Continued management per her primary team Qualifiers: Urinary tract infection type: site unspecified Hematuria presence: without hematuria Qualified Code(s): N39.0 - Urinary tract infection, site not specified History of Present Illness - Reason for Consult Consult date: 12/16/16 Requesting physician: Hieu Carney - Chief Complaint Weakness, nausea, vomiting - History of Present Illness Mrs. Golden is a pleasant 66 year old woman with a prior medical history of asthma, COPD, HFpEF (Echo 07/30 showed EF 60% w/ Mild Diastolic Dysfunction), paroxysmal A. Fib, Diabetes Mellitus, and GERD who presented to [facility] on 12/13/15 from the [facility] at which she has been residing. She was brought to [facility] due to having decreased oral intake, nausea, and vomiting for several days. At presentation she was found to be in A. Fib with RVR as well as having a glucose of 37. Her urinalysis was suggestive of an UTI. She was initially started on ceftriaxone. She had recently been admitted to [facility] in 10/01 and received treatment for generalized weakness. At that time she was treated for UTI, paroxysmal A. Fib, and supraventricular tachycardia. The nephrology service was asked to see her to help address her continued reduced urine output during her admission at this point. When seen, she is in bed and appears to require some effort in order to maintain a conversation. She states that prior to her admission to the hospital she had been feeling weak and had not been eating or drinking a lot. Though she denies nausea and vomiting , she reports that she has had a decreased appetite in general. She has felt like she hasnt been able to swallow and that this has decreased her desire to eat or drink anything. Since being admitted to the hospital, she has had a go catheter and is unable to say whether or not she is having any dysuria , hematuria, or other urinary difficulties, but prior to being in the hospital she denies having had any urinary symptoms either. She states that the swelling that she is having now is actually better than it normally is for her. She denies any chest pain, shortness of breath, back/flank pain, or abdominal pain. Past Med Surg Social Fam HX - Past Medical History Medical history: arthritis, asthma, atrial fibrillation, CHF, COPD, diabetes, GERD Psychiatric history: anxiety, depression, panic disorder - Past Surgical History Surgical History: angioplasty/stent, hysterectomy - Social History Smoking Status: Never smoker Smokeless Tobacco Status: No Alcohol use: none Drug use: none - Family History Brother Living Status: Still Living Hx Family Cardiac Disorders: Yes (HTN) Hx Family Endocrine Disorder: Yes (Diabetes) Mother Living Status: Hx Family Cardiac Disorders: Yes (HTN) Hx Family Endocrine Disorder: Yes (Diabetes) Father Living Status: Hx Family Cardiac Disorders: Yes (CABG x3 HTN diabetes) Hx Family Respiratory Disorders: No Hx Family Cancer: No Hx Family GI Disorders: No Hx Family Endocrine Disorder: Yes Hx Family Neuromuscular Disorders: No Hx Family Neurologic Disorders: No Hx Family HEENT Disorders: No Hx Family Autoimmune Disorders: No Medications and Allergies Albuterol Sulfate [Ventolin Hfa] 2 puff IH Q4H PRN 12/12/16 [History] Aspirin 81 mg PO DAILY 12/12/16 [History] Cetirizine HCl [All Day Allergy] 10 mg PO DAILY 12/12/16 [History] Diltiazem CD (24hr) [Cardizem CD] 300 mg PO DAILY 12/12/16 [History] HYDROcodone/Acet 5/325 mg [[place] 5-325 mg] 1 tab PO Q6H PRN 12/12/16 [History] LORazepam [Ativan] 0.5 mg PO BID PRN 12/12/16 [History] Levalbuterol Neb [Xopenex Neb] 0.63 mg IH Q6H PRN 12/12/16 [History] Metoprolol Tartrate 25 mg PO BID 12/12/16 [History] Montelukast Sodium [Singulair] 10 mg PO DAILY 12/12/16 [History] Multivitamin [Multi-Day Vitamins] 1 tab PO DAILY 12/12/16 [History] Nitroglycerin [Nitrostat] 0.4 mg SL AD PRN 12/12/16 [History] Nystatin POWDER [Nystop] 1 appl TP BID 12/12/16 [History] Rivaroxaban [Xarelto] 20 mg PO DAILY 12/12/16 [History] Fluticasone Propionate Nasal [Flonase] 50 mcg NS DAILY 12/13/16 [History] Furosemide [Lasix] 40 mg PO BID 12/13/16 [History] Hydroxyzine HCl 25 mg PO Q8H PRN 12/13/16 [History] Potassium Chloride [K-Tab ER] 20 meq PO DAILY 12/13/16 [History] Allergies levofloxacin [From Levaquin] Allergy (Verified 09/28/16 08:50) Hives Penicillins Allergy (Verified 09/28/16 08:50) Blister prednisone Allergy (Verified 09/28/16 08:50) See Comments all over swelling Sulfa (Sulfonamide Antibiotics) Allergy (Verified 09/28/16 08:50) Hives Banana Adverse Reaction (Severe, Verified 09/28/16 08:50) Blister egg Adverse Reaction (Severe, Verified 09/28/16 08:50) Throat swelling nitrofurantoin [From Macrobid] Adverse Reaction (Severe, Verified 09/28/16 08:50 ) Bruising on arms Review of Systems Constitutional: anorexia, chills, weakness, no fever(s), no headache(s) Nose, mouth and throat: no dizziness, no headache(s) Cardiovascular: no chest pain, no palpitations Respiratory: no cough, no dyspnea Gastrointestinal: no abdominal pain, no change in bowel habits, no nausea, no vomiting Genitourinary Female: no dysuria, no hematuria Musculoskeletal: no back pain, no muscle weakness, no numbness Integumentary: erythema Neurological: weakness, no dizziness, no headache(s), no numbness, no tingling Endocrine: fatigue Exam - Vital Signs Vital signs: Initial Vital Signs Temp Pulse Resp BP Pulse Ox 97.6 F 140 20 102/80 96 12/12/16 23:31 12/12/16 23:31 12/12/16 23:31 12/12/16 23:31 12/12/16 23:31 Vital Signs - Last 8 Hours Temp Pulse Resp BP Pulse Ox 12/16/16 15:12 97.6 F 92 18 96/63 95 12/16/16 14:07 88 100/54 12/16/16 12:30 93 94/58 12/16/16 11:14 97.4 F L 96 18 105/56 96 12/16/16 10:16 87 92/56 12/16/16 08:31 84 85/56 Intake and Output 12/16/16 12/16/16 12/16/16 07:59 15:59 23:59 Intake Total 100 / 100 1588 / 1588 Output Total 165 / 165 350 / 350 Balance -65 / -65 1238 / 1238 Intake: IV Fluids 100 / 100 1348 / 1348 0.9 % Sodium Chloride 1, 980 / 980 000 ML @ 3750 mls/hr IVC .Q16M ONE Rx#:[id number] Amiodarone 360mg/200mL 268 / 268 Drip Premix 360 mg In 200 ml @ 0.5 MG/MIN 16.667 mls/hr IVC CONT BEATA Rx#: [id number] Flexbumin 25 gm In 100 ml 100 / 100 100 / 100 @ 60 mls/hr IVPB Q8HR BEATA Rx#:[id number] Oral 240 / 240 Output: Urine 165 / 165 350 / 350 Urethral (Go) 165 / 165 350 / 350 Other: Meal Lunch Percent of Meal Consumed 15% Blood Glucose* 51 64 - General Appearance Exam: General: Cooperative, pleasant, no acute distress, appears weak, pallor present , alert and oriented 3, answers questions appropriately Head: Normocephalic, atraumatic, conjunctiva pink, sclera anicteric, EOMI, PERRL , neck supple, trachea midline, oral mucosa moist Respiratory: No accessory muscle usage, clear to auscultation bilaterally, no wheezes/rhonchi/rales appreciated Cardiovascular: Regular rate and rhythm, S1 and S2 present, no murmurs/rubs/ gallops/clicks appreciated GI/abdominal: Nondistended, soft, normal bowel sounds, no peritoneal signs, mild abdominal tenderness to palpation, obese abdomen Extremities: mild calf tenderness, noncyanotic, 2+ pedal edema appreciated b/l, 1+ pretibial edema appreciated b/l, warm, lower extremity pulses palpable and symmetrical Neurological: Alert and oriented 3, no facial droop, no focal deficits Results - Lab Results 12/16/16 12:45 12/16/16 04:20 Most recent lab results ABG pH 7.49 pH Units (7.32-7.45) H 12/14/16 04:10 ABG pCO2 35 mmHg (35-45) 12/14/16 04:10 ABG pO2 97 mmHg (85-104) 12/14/16 04:10 ABG HCO3 26.7 mEQ/L (21-27) 12/14/16 04:10 ABG O2 Saturation 98 % (95-98) 12/14/16 04:10 Calcium 7.5 mg/dL (8.6-10.8) L 12/16/16 04:20 Magnesium 1.6 mg/dL (1.6-2.6) 12/16/16 04:20 Consult Discharge Plan - Plan Referrals: Carolyn Reardon DO [Partnered Physician] - 12/27/16 9:30 am Monica Chahal CNP [Primary Care Provider] -
--- NOTE | 2016-12-16 17:27 | Venous Imaging Report ---
UE Venous Duplex Patient Name:Aixa Golden Order Number:[id number] Procedure Date:12/15/2016 Date:1950Age:66 yrs Gender:Female Location:[facility] Room #: 2N15 Site Interpreter:Sherlyn Saldivar Referring MD:Vinny Jones CNP supervisor compounding and finishing:Monica Chahal CNP Reading MD:Baljit Hutton MD Primary Indications:edema, AFIB RVR, Evaluate for DVT Secondary Indications: Risk Factors Yes/No Anticoagulants Yes Impressions: Bilateral upper extremity: normal superficial and deep exam. Recommendations: After imaging the patient returned to their room. Findings Venous Duplex Results: Left: The left cephalic vein was not well visualized. Prior Study: No prior study available for comparison. Upper Extremity Venous Duplex Side Vein Compress Spontaneous Flow Augment Right Jugular Normal yes Phasic yes Right Subclavian Normal yes Phasic yes Right Axillary Normal yes Phasic yes Right Brachial Normal yes Phasic yes Right Cephalic Normal yes Phasic yes Right Basilic Normal yes Phasic yes Right Radial Normal yes Phasic yes Right Ulnar Normal yes Phasic yes Left Jugular Normal yes Phasic yes Left Subclavian Normal yes Phasic yes Left Axillary Normal yes Phasic yes Left Brachial Normal yes Phasic yes Left Cephalic Left Basilic Normal yes Phasic yes Left Radial Normal yes Phasic yes Left Ulnar Normal yes Phasic yes Updated by Baljit Hutton MD on 12/16/2016 5:22:16 PM electronically signed on 12/16/2016 5:22:43 PM with status of Final
[2016-12-16] MEDS: D5% in Water 1,000 ML IVC PRN (17:31)
[2016-12-16] MEDS: Ertapenem 1,000 MG in 0.9 % Sodium Chloride Mini Bag 100 ML IVPB SCH (17:31)
[2016-12-16] MEDS: *HR* Rivaroxaban 10 MG TABLET PO SCH (17:32)
[2016-12-16 17:59] LABS: Bilirubin,Urine Moderate (Negative); Blood,Urine Moderate (Negative); Clarity,Urine Cloudy (Clear); Color,Urine Orange (Yellow); Glucose,Urine (UA) Normal (Normal); Ketones,Urine Negative (Negative); Leukocyte Esterase,Urine Moderate (Negative); Nitrite,Urine Positive (Negative); Protein,Urine 100 mg/dL (Neg-Trace); Specific Gravity,Urine 1.019 (1.010-1.025)
[2016-12-16 18:03] LABS: Bacteria,Urine None Seen per hpf (None-Few); Hyaline Casts,Urine Few per lpf (None-Few); Squamous Epithelial Cell,Urine Many per lpf (None-Few); WBC,Urine 50-100 per hpf (0-3)
[2016-12-16 18:17] LABS: RBC,Urine 15-30 per hpf (0-3); Yeast,Urine Many per hpf (None Seen)
[2016-12-16] MEDS ORDERED: *HR* OxyCODONE/APAP 5/325 TABLET PO ONE (23:21)
[2016-12-17] MEDS: 0.9 % Sodium Chloride 1,000 ML IVC SCH ×2 (03:22→17:41)
[2016-12-17 04:22] LABS: Basophils # 0.1 K/mcL (0.0-0.2); Basophils % 0.4 %; Eosinophils # 1.7 K/mcL (0.0-0.6); Eosinophils % 13.5 %; Hematocrit 27.9 % (35.3-44.9); Hemoglobin 9.5 g/dL (11.5-15.4); Immature Granulocytes % 1.2 % (0-4); Lymphocytes # 2.1 K/mcL (0.6-4.6); Lymphocytes % 16.3 %; Mean Corpuscular HGB Conc 34.1 g/dL (31.6-35.5); Mean Corpuscular Hemoglobin 28.4 pg (28.0-33.3); Mean Corpuscular Volume 83.3 fL (83.0-100.0); Mean Platelet Volume 11.3 fL (9.4-12.4); Monocytes # 0.9 K/mcL (0.0-1.3); Monocytes % 6.8 %; Neutrophils # 7.9 K/mcL (1.6-8.9); Platelet Count 209 K/mcL (140-400); Red Blood Count 3.35 M/mcL (3.82-4.97); Red Cell Distribution Width 14.9 % (11.5-14.5); Segmented Neutrophils % 61.8 %
[2016-12-17 04:41] LABS: % Iron Saturation 147 % (15-50); Iron 68 mcg/dL (50-170); Transferrin 33 mg/dL (180-382)
[2016-12-17 05:16] LABS: Folate 15.8 ng/mL (7.0-31.4)
[2016-12-17 05:32] LABS: Blood Urea Nitrogen 9 mg/dL (7-20); Carbon Dioxide 25 mEq/L (19-29); Chloride 104 mEq/L (98-109); Potassium 4.3 mEq/L (3.5-4.5); Sodium 134 mEq/L (136-145)
[2016-12-17 05:33] LABS: BUN/Creatinine Ratio 15 (6-26); Calcium 7.6 mg/dL (8.6-10.8); Glucose 66 mg/dL (70-99); Lactate Dehydrogenase 217 Units/L (159-327); Osmolality,Calculated 275 (280-300); eGFR For African Americans > 60 (> 60); eGFR For Non-African Americans > 60 (> 60)
[2016-12-17] MEDS: D5% in Water 1,000 ML IVC PRN ×2 (05:39→14:42)
[2016-12-17 05:45] LABS: Osmolality,Urine 411 mOsm/kg (300-1090)
[2016-12-17 05:46] LABS: Creatinine,Urine 105 mg/dL
[2016-12-17 05:47] LABS: Sodium, Urine < 20.0 mEq/L
[2016-12-17 06:17] LABS: Ferritin 877 ng/ml (5-204)
[2016-12-17] MEDS: Lactobacillus 1 EACH CAP.SPRINK PO SCH ×2 (08:58→21:31)
[2016-12-17] MEDS: Magnesium Oxide 400 MG TABLET PO SCH ×2 (08:58→21:31)
[2016-12-17] MEDS: *HR* Digoxin 0.125 MG TABLET PO SCH (08:58)
[2016-12-17] MEDS: Fluconazole 100 MG TABLET PO SCH (08:58)
[2016-12-17] MEDS: *HR* Amiodarone 200 MG TABLET PO SCH ×2 (08:58→21:31)
[2016-12-17] MEDS: Nystatin POWDER 30 GM BOTTLE TP SCH ×2 (09:02→21:31)
[2016-12-17] MEDS: Miconazole 2% ointment 114 GM TUBE TP SCH (09:02)
[2016-12-17] MEDS: Hydrocortisone Sodium Succ 100 MG/2 ML VIAL IVP SCH ×3 (10:10→21:31)
--- NOTE | 2016-12-17 10:50 | Internal Med Progress Note ---
Date of Encounter: 12/17/16 Time of Encounter: 10:49 - Assessment and plan (1) Sepsis Current Visit: Yes Status: Acute Assessment and plan: Suspected source is UTI Afebrile, tachycardia has improved Leukocytosis improved lactic acidosis has resolved Continue Etapernem Preliminary urine culture with yeast species Continue Fluconazole Follow final urine culture results, will deescalate prn Qualifiers: Sepsis type: sepsis due to unspecified organism Qualified Code(s): A41.9 - Sepsis, unspecified organism (2) UTI (urinary tract infection) Current Visit: Yes Status: Acute Assessment and plan: No urine culture on chart Prior hx of MDRO E.Coli On Etapernem, continue Leukocytosis slightly improved , urine culture with >100,000 yeast colonies, continue po for now Follow final urine culture Qualifiers: Urinary tract infection type: site unspecified Hematuria presence: without hematuria Qualified Code(s): N39.0 - Urinary tract infection, site not specified (3) Generalized weakness Current Visit: Yes Status: Chronic Assessment and plan: PT/OT eval prior to discharge Patient was resident of SNF for rehab prior to admission (4) Anasarca Current Visit: Yes Status: Chronic Assessment and plan: Chronic, continue compression stockings (5) Diabetes Current Visit: Yes Status: Chronic Assessment and plan: A1C 6.3% Continue Sliding scale FS ACHS Qualifiers: Diabetes mellitus type: type 2 Diabetes mellitus complication status: with hypoglycemia Diabetes mellitus senior care insulin use: without lead oxide mill tender use Qualified Code(s): E11.649 - Type 2 diabetes mellitus with hypoglycemia without coma (6) Atrial fibrillation with RVR Current Visit: Yes Status: Acute Assessment and plan: Improved Low BP limits medication options Cardiology following, Digoxint o be discontinued per cardio Continue amiodarone (7) Hypoglycemia associated with diabetes Current Visit: Yes Status: Acute Assessment and plan: Improved Sliding scale insulin only prn (8) Skin excoriation Current Visit: Yes Status: Chronic Assessment and plan: Continue dressing Continue nystatin powder (9) Lactic acidosis Current Visit: Yes Status: Resolved Assessment and plan: Resolved Secondary to hypoperfusion and Afib with RVR (10) Chronic anticoagulation Current Visit: Yes Status: Chronic Assessment and plan: Continue Xarelto Monitor H/H Urine looks cloudy, will monitor (11) Morbid obesity with BMI of 50.0-59.9, adult Current Visit: Yes Status: Chronic Assessment and plan: Lifestyle changes (12) Dysphagia Current Visit: Yes Status: Chronic Assessment and plan: Speech and swallow eval noted, follow recommendations Qualifiers: Dysphagia type: unspecified Qualified Code(s): R13.10 - Dysphagia, unspecified (13) Hypomagnesemia Current Visit: Yes Status: Acute Assessment and plan: Mag WNL (14) Hypokalemia Current Visit: Yes Status: Acute Assessment and plan: Improved (15) CHF (congestive heart failure) Current Visit: Yes Status: Chronic Assessment and plan: Patient with generalized edema However, CXR shows no evidence of CHF. Echo from July 2016 showed EF preserved 60%, mild diastolic dysfunction, mild to moderate MR, no pulmonary hypertension. BNP noted to be only 334. Continue to monitor respiratory status No diuresis for now Anasarca possibly from hypoalbuminemia ECHO noted for EF 65% with only mild diastolic dysfunction. Qualifiers: Congestive heart failure type: diastolic Congestive heart failure chronicity: chronic Qualified Code(s): I50.32 - Chronic diastolic (congestive ) heart failure (16) Oliguria Current Visit: Yes Status: Acute Assessment and plan: Improved Continue strict I/O Renal USS unremarkable Nephrology eval (17) Anemia Current Visit: Yes Status: Acute Assessment and plan: Possibly dilutional or patient was extremely dehydrated on admission No evidence of bleed HB stable Continue to monitor Qualifiers: Anemia type: unspecified type Qualified Code(s): D64.9 - Anemia, unspecified (18) Hypotension Current Visit: Yes Status: Acute Assessment and plan: Possibly secondary to severe sepsis with adrenal insufficiency D/C IVF, start hydrocortisone Obtain cortisol, TSH, ECHO Maintain MAP >70 Patient does not need pressors as at this time of review Qualifiers: Hypotension type: unspecified hypotension type Qualified Code(s): I95.9 - Hypotension, unspecified (19) Adrenal insufficiency Current Visit: Yes Status: Acute Assessment and plan: Start hydrocortisone, monitor FS and blood pressure Start PPI for GI prophylaxis-patient is on xarelto - Subjective Interval history: Seen and evaluated at bedside 66 F patient with Morbid Obesity , multiple skin lesions with excoriation and weeping , CHFpEF, COPD, Afib, s/p C 09/2016 without any significant CAD, DM II being managed for Afib with RVR with hypotension and lactic acidosis, Severe sepsis secondary to UTI, Patient believes she feels better Lactic acidosis has improved Hypoglycemia improved initially but recurred Patient with poor oral intake She remains icteric, will repeat LFTs Urine output improving, continue to monitor Her BP has been stable with MAP >80 persistently HR too has improved with Digoxin and amiodarone Digoxin level subtherapeutic TSH, unremarkable ECHO Cortisol level inappropriately low, will start on hydrocortisone Urine culture with sandro, pending sensitivity - Constitutional Vitals: Temp Pulse Resp BP Pulse Ox 97.9 F 77 18 95/51 96 12/17/16 07:38 12/17/16 08:04 12/17/16 07:38 12/17/16 07:38 12/17/16 08:04 General appearance: Present: A&O X 3, morbidly obese, pleasant, no acute distress Exam: VS-Afib HR 89-100 Hypotensive but MAP >80 Not in any form of distress, morbidly obese with anasarca and generalized edema Speaks full sentences not in any form of distress Scleral and facial icterus Chest is clear to auscultation bilaterally anteriorly Heart sound: Normal rate and rhythm this a.m Abdomen: Is obese, no palpable abnormalities Extremities: Bilateral pitting pedal edema, bilateral lower extremity redness, no differential warmth, no tenderness Integument: Skin lesions are dressed Internal Medicine: Result - Labs CBC & Chem 7: 12/17/16 04:00 12/17/16 05:05 Labs: Short CBC 12/16/16 12/17/16 Range/Units 12:45 04:00 WBC 11.7 H 12.7 H (4.3-11.1) K/mcL Hgb 9.8 L 9.5 L (11.5-15.4) g/dL Hct 29.0 L 27.9 L (35.3-44.9) % Plt Count 196 209 (140-400) K/mcL Neutrophils # 8.4 7.9 (1.6-8.9) K/mcL BMP 12/17/16 05:05 Sodium 134 L Potassium 4.3 Chloride 104 Carbon Dioxide 25 BUN 9 Creatinine 0.60 Glucose 66 L Calcium 7.6 L Urine 12/16/16 Range/Units 17:30 Urine Color [place] A (Yellow) Urine Clarity Cloudy A (Clear) Urine pH 6.0 (5.0-8.0) pH Units Ur Specific [place] 1.019 (1.010-1.025) Urine Protein 100 H (Neg-Trace) mg/dL Urine Glucose (UA) Normal (Normal) mg/dL - ABG Interpretation ABG results: ABG ABG pH 7.49 pH Units (7.32-7.45) H 12/14/16 04:10 ABG pCO2 35 mmHg (35-45) 12/14/16 04:10 ABG pO2 97 mmHg (85-104) 12/14/16 04:10 ABG O2 Saturation 98 % (95-98) 12/14/16 04:10 - VTE Reasons for not Prescribing Prophylaxis: Not indicated-Anticoagulated or INR therapeutic Consult Discharge Plan - Plan Referrals: Carolyn Reardon DO [Partnered Physician] - 12/27/16 9:30 am Monica Chahal, BROOKE [Primary Care Provider] -
[2016-12-17] MEDS: Acetaminophen 325 MG TABLET PO PRN (11:09)
--- NOTE | 2016-12-17 12:01 | ECHO - Doppler Report ---
Echocardiogram Name: Aixa Golden Date of Study: 12/16/2016 Date: 1950 Ht: 62.0 in Medical Record#: [id number] Age: 66 Wt: 301.0 lb Gender: Female BSA: 2.27 Order #: [id number] Location: [facility] Room #: 2N15 Reading Physician: Dakota Carey DO, FACGUERA [place] Program Instructor: Franca Elise Ordering Physician: Hieu Carney MD Primary Physician: Monica Chahal CNP Indications: Afib w/RVR, Hypotension Impressions: Technically sub-optimal due to body habitus. LVEF 65%. Grossly normal LV chamber size. Unable to accurately measure wall thickness due to poor image resolution. Mild left ventricular diastolic dysfunction. Grossly normal right ventricular structure and function. Unable to accurately estimate RVSP due to lack of adequate TR jet. No obvious significant valvular dysfunction. Left Ventricular Wall Motion: Rest Echo Findings All wall segments showed normal motion. Findings: Study Quality * Technically sub-optimal due to body habitus. ECG Findings * Normal sinus rhythm. Left Ventricle * LVEF 65%. * Grossly normal LV chamber size. Unable to accurately measure wall thickness due to poor image resolution. * Mild left ventricular diastolic dysfunction. Right Ventricle * Grossly normal right ventricular structure and function. Left Atrium * Mildly dilated left atrium. Right Atrium * Normal right atrial size. Interatrial Septum * Interatrial septum not well evaluated. Aortic Valve * Aortic valve not well visualized. * No aortic regurgitation. * No aortic stenosis. Mitral Valve * Normal mitral valve structure and function. * No mitral regurgitation. * No mitral stenosis. Tricuspid Valve * Normal tricuspid valve structure and function. * Trace tricuspid regurgitation. * Unable to accurately estimate RVSP due to lack of adequate TR jet. Pulmonic Valve * Pulmonic valve not well visualized. Aorta * Normally sized aortic root. Pericardium * The pericardium appears normal. IVC * The IVC is not well evaluated. Pulmonary Artery * Pulmonary artery not well visualized. History Rheumatic Fever Family History of CAD History of CAD/PTCA Congestive Heart Failure 07/18/2016 a Previous Echo was performed. Measurements: BP: 96/ 63 2D Normal Values RVIDd: 2.80 cm <2.7 cm LVIDd: 3.10 cm 3.7 - 5.6 cm LVIDs: 1.90 cm 1.5 - 3.6 cm AO: 2.60 cm < 4.0 cm LA: 4.40 cm 2.0 - 4.0cm %FS: 38.70 cm >25 % LA volume: 51 Mitral Valve Peak E:.64 m/sec Peak A:1.35 m/sec E/A Ratio:0.5 Peak E' Lat [place]:9.55 cm/s Peak E' Med [place]:6.14 cm/s E/E' Lat Ratio:6.6 E/E' Med Ratio:10.3 Tricuspid Valve TV Regurg Peak Grad: 7.00mmHg TV Regurg Peak [place]: 1.34m/sec Updated by Dakota Carey DO, FACEnriqueta, GUERA, ROSEMARIE on 12/17/2016 11:56:23 AM electronically signed on 12/17/2016 11:56:45 AM with status of Final Wall Motion [place]: 1=Normal, 2=Hypokinesis, 3=Akinesis, 4=Dyskinesis, 5=Aneurysmal, 6=Hyperkinetic, X=Not Visualized (Blank)=Missing
--- NOTE | 2016-12-17 13:28 | Cardiology Progress Note ---
Date of Encounter: 12/17/16 Time of Encounter: 13:26 Assessment and Plan (1) Atrial fibrillation with RVR Current Visit: Yes Status: Acute Per Cardiology: Noted to have brief PAF during last hospital stay September 2016 managed with BB and CCB (xarelto). Was A. fib with RVR this admission in setting of sepsis. Started on amiodarone, as pt was hypotensive. IV Amiodarone transitioned to PO 200mg BID. Now maintaining SR. QTc remains <500ms. Not on cardizem or BB due to hypotension. Stop Digoxin now that she is SR. Regarding long-term anticoagulation, on Xarelto 20 mg PO daily. Hematuria noted in Go, but appears improved today. H&H stable 9.8 yesterday, 9.5 today. ASA stopped. Continue Xarelto. Echo EF preserved. Cardiology signing off. Reconsult PRN. Will coordinate outpt follow-up. (2) Lower extremity edema Current Visit: No Status: Chronic Per Cardiology: CXR shows no evidence of CHF. Echo shows EF 65% with only mild diastolic dysfunction. BNP noted to be only 334. Denies SOB. No diuresis warranted and SBP most likely will not tolerate. Albumin 1.5. Recommend TAMARA wraps. Lower extremity dopplers ordered. Qualifiers: Laterality: bilateral Qualified Code(s): R60.0 - Localized edema (3) CAD (coronary artery disease) Current Visit: No Status: Chronic Per Cardiology: History of CAD with last heart catheterization October 04, 2016 which showed mid LAD 30%, mid circumflex 40%, patent OM 2 stent, mid RCA 30% stenosis. Troponin negative. On aspirin. No BB d/t hypotension. Not on statin due to history of myalgias. Stopped ASA with downtrending H&H with blood noted in go and evidence of epistaxis. Qualifiers: Coronary Disease-Associated Artery/Lesion type: [place] artery [place] vs. transplanted heart: [place] heart Associated angina: angina presence unspecified Qualified Code(s): I25.10 - Atherosclerotic heart disease of [place] coronary artery without angina pectoris Discussion w patient/family: The assessment and plan as outlined above was discussed with the patient and/or family members who expressed understanding and agreement. All questions were answered. Thank you for involving us in the care of your patient. Please call with any questions. I will discuss all the above with Dr. Winters and make changes as necessary. Subjective Principal diagnosis: Afib RVR Interval history: Pt now in SR, only complaint is being tired. Denies any cardiac complaints. Echo resulted--EF 65%, mild diastolic dysfunction, grossly normal RV, no obvious valvular dysfunction. Objective Vital Signs, Last 4 Hours Temp Pulse Resp BP Pulse Ox 12/17/16 10:53 98.6 F 87 18 96/60 97 Vital Signs Temp Pulse Resp BP Pulse Ox 12/17/16 10:53 98.6 F 87 18 96/60 97 12/17/16 08:04 77 96 12/17/16 07:38 97.9 F 80 18 95/51 96 12/17/16 03:47 99.6 F 82 20 101/60 97 12/16/16 23:13 99.6 F 92 20 93/59 97 12/16/16 20:30 99.4 F 91 20 97/50 97 12/16/16 17:17 87 12/16/16 15:12 97.6 F 92 18 96/63 95 12/16/16 14:07 88 100/54 Intake and Output 12/16/16 12/17/16 12/17/16 23:59 07:59 15:59 Intake Total 600 / 600 1100 / 1100 360 / 360 Output Total 180 / 180 80 / 80 350 / 350 Balance 420 / 420 1020 / 1020 10 / 10 Intake: IV Fluids 600 / 600 1100 / 1100 0.9 % Sodium Chloride 1, 600 / 600 000 ML @ 125 mls/hr IVC . Q8H BEATA Rx#:[id number] Dextrose 5% 1,000 ML @ 1000 / 1000 100 mls/hr IVC .Q10H PRN Rx#:[id number] INVanz 1,000 MG In 0.9 % 100 / 100 Sodium Chloride (Mini-Bag +) 100 ML @ 100 mls/hr IVPB Q24H BEATA Rx#: [id number] Oral 360 / 360 Output: Urine 80 / 80 350 / 350 Urethral (Go) 80 / 80 Catheter 100 / 100 80 / 80 Other: Meal Breakfast Percent of Meal Consumed 75% Weight 140 kg Blood Glucose* 94 87 114 Patient Weight 12/17/16 23:59 Weight 140 kg General: Conversant, No Apparent Distress HEENT: Atraumatic, Normocephaly, Mucus Membranes Moist Neck: No JVD, Normal carotid pulses Cardiac: Reg Rate and Rhythm, Normal S1 and S2, No Murmur Lungs: Other (diminished) Neuro: Alert and responsive, No focal deficits noted Abdomen: Soft, Non-Tender Skin: No rashes noted on visualized skin Musculoskeletal: No Chest Wall Tenderness Extremities: Other (2+ BLE edema) Results 12/17/16 04:00 12/17/16 05:05 Lab Results 12/17/16 12/17/16 12/17/16 04:00 04:00 05:05 WBC 12.7 H Hgb 9.5 L Hct 27.9 L Plt Count 209 Sodium 134 L Potassium 4.3 Chloride 104 Carbon Dioxide 25 BUN 9 Creatinine 0.60 Glucose 66 L Calcium 7.6 L Magnesium 2.6 Short CBC 12/17/16 Range/Units 04:00 WBC 12.7 H (4.3-11.1) K/mcL Hgb 9.5 L (11.5-15.4) g/dL Hct 27.9 L (35.3-44.9) % Plt Count 209 (140-400) K/mcL Neutrophils # 7.9 (1.6-8.9) K/mcL BMP 12/17/16 Range/Units 05:05 Sodium 134 L (136-145) mEq/L Potassium 4.3 (3.5-4.5) mEq/L Chloride 104 (98-109) mEq/L Carbon Dioxide 25 (19-29) mEq/L BUN 9 (7-20) mg/dL Creatinine 0.60 (0.57-1.11) mg/dL Glucose 66 L (70-99) mg/dL Calcium 7.6 L (8.6-10.8) mg/dL Urine 12/16/16 Range/Units 17:30 Urine Color [place] A (Yellow) Urine Clarity Cloudy A (Clear) Urine pH 6.0 (5.0-8.0) pH Units Ur Specific [place] 1.019 (1.010-1.025) Urine Protein 100 H (Neg-Trace) mg/dL Urine Glucose (UA) Normal (Normal) mg/dL Active Medications Acetaminophen (Tylenol) 650 mg PO Q6HR PRN PRN Reason: Mild Pain (1-3); fever Stop: 06/14/17 01:50 Last Admin: 12/17/16 11:09 Dose: 650 mg Amiodarone HCl (Cordarone) 200 mg PO BID [facility] Stop: 06/17/17 11:16 Last Admin: 12/17/16 08:58 Dose: 200 mg Dextrose/Water (Dextrose 50% (Syg)) 25 ml IVP AD PRN PRN Reason: Hypoglycemia Stop: 06/14/17 01:59 Last Admin: 12/17/16 05:42 Dose: 25 ml Digoxin (Lanoxin) 0.125 mg PO DAILY [facility]ATA Stop: 06/15/17 12:31 Last Admin: 12/17/16 08:58 Dose: 0.125 mg Fluconazole (Diflucan) 200 mg PO DAILY BEATA Stop: 06/18/17 08:24 Last Admin: 12/17/16 08:58 Dose: 200 mg Glucagon (Glucagen) 1 mg IM ONCE PRN PRN Reason: Hypoglycemia Stop: 06/14/17 01:59 Glucose (Gluctose) 15 gm PO ONCE PRN PRN Reason: Hypoglycemia Stop: 06/14/17 01:59 Glucose (Gluctose) 30 gm PO ONCE PRN PRN Reason: Hypoglycemia Stop: 06/14/17 01:59 Hydrocortisone Sodium Succinate (Solu-Cortef) 50 mg IVP Q6H BEATA Stop: 06/18/17 08:31 Last Admin: 12/17/16 10:10 Dose: 50 mg Dextrose (Dextrose 5%) 1,000 mls @ 100 mls/hr IVC .Q10H PRN PRN Reason: HYPOGLYCEMIA Stop: 06/14/17 01:59 Last Admin: 12/17/16 05:39 Dose: 100 mls/hr Ertapenem 1,000 mg/ Sodium (Chloride) 100 mls @ 100 mls/hr IVPB Q24H [facility] Stop: 06/15/17 16:01 Last Infusion: 12/17/16 07:51 Dose: Infused Sodium Chloride (0.9 % Sodium Chloride) 1,000 mls @ 125 mls/hr IVC .Q8H [facility] Stop: 06/17/17 09:31 Last Admin: 12/17/16 03:22 Dose: Not Given Lactobacillus Acidophilus/Rhamnosus (Culturelle) 1 each PO BID [facility] Stop: 06/14/17 09:01 Last Admin: 12/17/16 08:58 Dose: 1 each Magnesium Oxide (Mag-Ox) 400 mg PO BID BEATA PRN Reason: Protocol Stop: 06/16/17 21:01 Last Admin: 12/17/16 08:58 Dose: 400 mg Miconazole (Aloe [place] Antifungal Ointment) 1 appl TP DAILY [facility] Stop: 06/16/17 12:16 Last Admin: 12/17/16 09:02 Dose: 1 appl Naloxone HCl (Narcan) 0.4 mg IVP Q2MIN PRN PRN Reason: Opioid Reversal Stop: 06/14/17 01:50 Nystatin (Nystop) 1 appl TP BID [facility] Stop: 06/16/17 21:01 Last Admin: 12/17/16 09:02 Dose: 1 appl Rivaroxaban (Xarelto) 20 mg PO 1700 [facility] Stop: 06/14/17 17:01 Last Admin: 12/16/16 17:32 Dose: 20 mg - Imaging and Cardiology Echo: report reviewed - EKG Interpretation EKG results cardiology: other (24 hour tele AVG HR 86, SR.) - VTE Reasons for not Prescribing Prophylaxis: Not indicated-Anticoagulated or INR therapeutic Consult Discharge Plan - Plan Referrals: Carolyn Reardon DO [Partnered Physician] - 12/27/16 9:30 am Monica Chahal, MEDICAL PHYSICS PROFESSOR [Primary Care Provider] -
[2016-12-17] MEDS: Pantoprazole 40 MG VIAL IVP SCH (14:44)
--- NOTE | 2016-12-17 14:58 | Nephrology Progress Note ---
Date of Encounter: 12/17/16 Time of Encounter: 09:25 - Assessment and Plan (1) Decreased urine output Current Visit: Yes Status: Acute Patient presented to [facility] weak, septic, and in a. fib with rvr. She describes having decreased PO intake for several days prior to admission and she has not been eating a lot of her meals while in the hospital either. Per her documented I/Os she appears to be several liters positive since admission to the hospital, though her exact I/Os may be incorrectly documented. She has been having about 550 ml out/day, with 1 day appearing to have less, though in speaking with her nurse it is possible that it was just not documented. Either way, one would expect a greater amount of urinary output given her size. Her renal function has been normal during the duration of her admission. A retroperitoneal US was performed, but could not be accurately interpreted due to the patient body habitus. Patient also has a decreased albumin. The contents of her go bag appear dark with sentiments. Her decreased urine output could be a representation of dehydration/decreased circulating volume given her decreased PO recently and overall nutritional status. Her BUN and SCr continue in the normal range and do not appear to be disproportionate in value. Although she appears to be losing some protein in her urine, there is not enough to suggest nephrotic range proteinuria which would justify her low serum albumin. No urine eosinophils were noted on patient labwork. Patient would likely benefit from a nutrition consult to help address her nutritional needs Patient was put on IVF for the time being and is being monitored for signs of respiratory distress/compromise given her history of CHF Continue fluids for now Continue to monitor renal function with daily chemistry Strict I/Os With patient improving urine output and no significant urine losses of albumin, nephrology will sign off. Please reconsult if there are any additional questions or concerns. (2) Hypoalbuminemia Current Visit: Yes Status: Acute Patient hypoalbuminemia has been developing since 10/01. Urine studies do show some protein loss, but given her previously documented pro/cr ratio, it is not significantly elevated enough to justify her recent loss in albumin. Continue nutrition supplementation per nutrition Plan as above (3) Anemia Current Visit: Yes Status: Acute Patient is not iron deficient or B12 deficient. She does have slightly low folate Will replace with PO folic acid supplementation Qualifiers: Anemia type: unspecified type Qualified Code(s): D64.9 - Anemia, unspecified (4) Atrial fibrillation with RVR Current Visit: Yes Status: Acute Further management per her primary team and cardiology (5) Generalized weakness Current Visit: Yes Status: Chronic Patient weakness likely due to severe sepsis from UTI, hypoglycemia, and anemia Continued management per primary team (6) Hypotension Current Visit: Yes Status: Acute Patient has been having decreased blood pressures during her admission. With SBP as low as 77. Her current infection and SIRS is likely responsible for her decreased BP, but this could also be contributing to a decrease in circulating volume to be filtered by her kidneys and decreased urine output. Agree with continued IVF, patient should be monitored for any signs of respiratory third spacing with concerns of her histproteinory of HFpEF and hypoalbuminemia Qualifiers: Hypotension type: unspecified hypotension type Qualified Code(s): I95.9 - Hypotension, unspecified (7) UTI (urinary tract infection) Current Visit: Yes Status: Acute Patient presents with urine suggestive of a UTI. Urine culture has so far shown a yeast species, but patient has a history of E. coli MDRO UTIs, she has been on meropenem, and ertapenem. Continued management per her primary team Qualifiers: Urinary tract infection type: site unspecified Hematuria presence: without hematuria Qualified Code(s): N39.0 - Urinary tract infection, site not specified Subjective Principal diagnosis: Afib RVR Interval history: Patient reports that she is feeling somewhat improved from yesterday. When asked what she meant by that, she states that she feels more alert than she did yesterday. She reprots that she is still having some decreased appetite, only being able to eat part of a muffin and some Ensure for breakfast this morning. She still feels a bit weak, but appears more alert than she has been. Objective - Vital Signs Vital signs: Vital Signs Temp Pulse Resp BP Pulse Ox 12/17/16 12:15 82 97 12/17/16 10:53 98.6 F 87 18 96/60 97 12/17/16 08:04 77 96 12/17/16 07:38 97.9 F 80 18 95/51 96 12/17/16 03:47 99.6 F 82 20 101/60 97 12/16/16 23:13 99.6 F 92 20 93/59 97 12/16/16 20:30 99.4 F 91 20 97/50 97 12/16/16 17:17 87 12/16/16 15:12 97.6 F 92 18 96/63 95 Intake and Output 12/16/16 12/17/16 12/17/16 23:59 07:59 15:59 Intake Total 600 / 600 1100 / 1100 1360 / 1360 Output Total 180 / 180 80 / 80 350 / 350 Balance 420 / 420 1020 / 1020 1010 / 1010 Intake: IV Fluids 600 / 600 1100 / 1100 1000 / 1000 0.9 % Sodium Chloride 1, 600 / 600 000 ML @ 125 mls/hr IVC . Q8H BEATA Rx#:[id number] Dextrose 5% 1,000 ML @ 1000 / 1000 1000 / 1000 100 mls/hr IVC .Q10H PRN Rx#:[id number] INVanz 1,000 MG In 0.9 % 100 / 100 Sodium Chloride (Mini-Bag +) 100 ML @ 100 mls/hr IVPB Q24H BEATA Rx#: [id number] Oral 360 / 360 Output: Urine 80 / 80 350 / 350 Urethral (Go) 80 / 80 Catheter 100 / 100 80 / 80 Other: Meal Breakfast Percent of Meal Consumed 75% Weight 140 kg Blood Glucose* 94 87 114 Patient Weight 12/17/16 23:59 Weight 140 kg - General Appearance Exam: General: Cooperative, pleasant, no acute distress, pallor present, alert and oriented 3, answers questions appropriately Head: Normocephalic, atraumatic, conjunctiva pink, sclera anicteric, EOMI, PERRL , neck supple, trachea midline, oral mucosa moist Respiratory: No accessory muscle usage, clear to auscultation bilaterally, no wheezes/rhonchi/rales appreciated Cardiovascular: Regular rate and rhythm, S1 and S2 present, no murmurs/rubs/ gallops/clicks appreciated GI/abdominal: Nondistended, soft, normal bowel sounds, no peritoneal signs, mild abdominal tenderness to palpation, obese abdomen Extremities: mild calf tenderness, noncyanotic, 2+ pedal edema appreciated b/l, 1+ pretibial edema appreciated b/l, warm, lower extremity pulses palpable and symmetrical Neurological: Alert and oriented 3, no facial droop, no focal deficits Skin: erythema on patient lower extremities and abdomen - Lab 12/17/16 04:00 12/17/16 05:05 Most recent lab results ABG pH 7.49 pH Units (7.32-7.45) H 12/14/16 04:10 ABG pCO2 35 mmHg (35-45) 12/14/16 04:10 ABG pO2 97 mmHg (85-104) 12/14/16 04:10 ABG HCO3 26.7 mEQ/L (21-27) 12/14/16 04:10 ABG O2 Saturation 98 % (95-98) 12/14/16 04:10 Calcium 7.6 mg/dL (8.6-10.8) L 12/17/16 05:05 Magnesium 2.6 mg/dL (1.6-2.6) 12/17/16 04:00 Urine Creatinine 105 mg/dL 12/17/16 03:40 Urine Sodium < 20.0 mEq/L 12/17/16 03:40 Urine Total Protein 73 mg/dL (1-14) H 12/17/16 03:40 - VTE Reasons for not Prescribing Prophylaxis: Not indicated-Anticoagulated or INR therapeutic Consult Discharge Plan - Plan Referrals: Carolyn Reardon DO [Partnered Physician] - 12/27/16 9:30 am Monica Chahal CNP [Primary Care Provider] -
[2016-12-17 15:24] LABS: Albumin 2.2 g/dL (3.5-5.0); Albumin/Globulin Ratio 0.8 (1.1-2.2); Alkaline Phosphatase 295 Units/L (38-126); Bilirubin,Direct 2.4 mg/dL (0.0-0.5); Bilirubin,Indirect 1.9 mg/dL (0.0-1.2); Bilirubin,Total 4.3 mg/dL (0.2-1.2); Globulin 2.9 g/dL (2.4-3.5); Total Protein 5.1 g/dL (6.0-8.3)
[2016-12-17 15:37] LABS: Alanine Aminotransferase 53 Units/L (0-55); Aspartate Amino Transferase 198 Units/L (5-34)
[2016-12-17] MEDS: Ertapenem 1,000 MG in 0.9 % Sodium Chloride Mini Bag 100 ML IVPB SCH (16:18)
[2016-12-17] MEDS: *HR* Rivaroxaban 10 MG TABLET PO SCH (16:18)
--- NOTE | 2016-12-17 17:41 | Electrocardiograph Report ---
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
--- NOTE | 2016-12-17 17:44 | Electrocardiograph Report ---
[place] [address] Test Date: 2016-12-16 Pat Name: Aixa Golden Department: 110 Room: 2N15 Gender: F Pain Coordinator: : 1950 Requested By: Hieu Carney Order Number: [id number] Reading MD: Angelique Sheridan Measurements Intervals [place] Rate: 83 P: LA: 0 QRS: 14 QRSD: 62 T: 180 QT: 334 QTc: 374 Interpretive Statements SINUS RHYTHM LOW QRS VOLTAGE IN PRECORDIAL LEADS MODERATE ST DEPRESSION ABNORMAL QRS-T ANGLE Electronically Signed On 12-17-2016 17:42:33 EDT by Angelique Sheridan
[2016-12-18] MEDS: Albumin 25% 25gram/100mL 25 GM/100 ML IV.SOLN IVPB SCH ×2 (00:05→09:53)
[2016-12-18] MEDS: Hydrocortisone Sodium Succ 100 MG/2 ML VIAL IVP SCH ×4 (03:23→20:51)
[2016-12-18 04:38] LABS: Basophils % 0.1 %; Eosinophils % 0.1 %; Hematocrit 26.1 % (35.3-44.9); Hemoglobin 8.7 g/dL (11.5-15.4); Lymphocytes # 1.3 K/mcL (0.6-4.6); Lymphocytes % 13.1 %; Mean Corpuscular HGB Conc 33.3 g/dL (31.6-35.5); Mean Corpuscular Hemoglobin 27.5 pg (28.0-33.3); Mean Corpuscular Volume 82.6 fL (83.0-100.0); Mean Platelet Volume 10.9 fL (9.4-12.4); Monocytes # 0.3 K/mcL (0.0-1.3); Monocytes % 3.4 %; Neutrophils # 7.8 K/mcL (1.6-8.9); Platelet Count 213 K/mcL (140-400); Red Blood Count 3.16 M/mcL (3.82-4.97); Red Cell Distribution Width 14.8 % (11.5-14.5); Segmented Neutrophils % 81.3 %
[2016-12-18 04:51] LABS: BUN/Creatinine Ratio 14 (6-26); Blood Urea Nitrogen 9 mg/dL (7-20); Calcium 7.8 mg/dL (8.6-10.8); Carbon Dioxide 22 mEq/L (19-29); Chloride 104 mEq/L (98-109); Glucose 184 mg/dL (70-99); Osmolality,Calculated 279 (280-300); Sodium 133 mEq/L (136-145); eGFR For African Americans > 60 (> 60); eGFR For Non-African Americans > 60 (> 60)
[2016-12-18 04:57] LABS: Potassium 4.8 mEq/L (3.5-4.5)
[2016-12-18] MEDS: 0.9 % Sodium Chloride 1,000 ML IVC SCH (07:54)
[2016-12-18] MEDS: Pantoprazole 40 MG VIAL IVP SCH (09:53)
[2016-12-18] MEDS: Miconazole 2% ointment 114 GM TUBE TP SCH (09:54)
[2016-12-18] MEDS: *HR* Amiodarone 200 MG TABLET PO SCH ×2 (09:54→20:51)
[2016-12-18] MEDS: Magnesium Oxide 400 MG TABLET PO SCH ×2 (09:54→20:51)
[2016-12-18] MEDS: Lactobacillus 1 EACH CAP.SPRINK PO SCH ×2 (09:54→20:51)
[2016-12-18] MEDS: Fluconazole 100 MG TABLET PO SCH (09:54)
[2016-12-18] MEDS: Nystatin POWDER 30 GM BOTTLE TP SCH ×2 (09:55→20:51)
--- NOTE | 2016-12-18 10:39 | Internal Med Progress Note ---
Date of Encounter: 12/18/16 Time of Encounter: 10:38 - Assessment and plan (1) Sepsis Current Visit: Yes Status: Acute Assessment and plan: Suspected source is UTI Afebrile, tachycardia has improved Leukocytosis and lactic acidosis resolved Continue Etapernem Preliminary urine culture with sandro Continue Fluconazole Follow final urine culture results, will deescalate prn Qualifiers: Sepsis type: sepsis due to unspecified organism Qualified Code(s): A41.9 - Sepsis, unspecified organism (2) UTI (urinary tract infection) Current Visit: Yes Status: Acute Assessment and plan: No urine culture on chart Prior hx of MDRO E.Coli On Etapernem, continue Leukocytosis has resolved urine culture with sandro, continue fluconazole Follow final urine culture Qualifiers: Urinary tract infection type: site unspecified Hematuria presence: without hematuria Qualified Code(s): N39.0 - Urinary tract infection, site not specified (3) Generalized weakness Current Visit: Yes Status: Chronic Assessment and plan: PT/OT eval prior to discharge Patient was resident of SNF for rehab prior to admission (4) Anasarca Current Visit: Yes Status: Chronic Assessment and plan: Chronic, continue compression stockings (5) Diabetes Current Visit: Yes Status: Chronic Assessment and plan: A1C 6.3% Continue Sliding scale, levemir, lispro FS ACHS Qualifiers: Diabetes mellitus type: type 2 Diabetes mellitus complication status: with unspecified complications Diabetes mellitus prison insulin use: without prison use Qualified Code(s): E11.8 - Type 2 diabetes mellitus with unspecified complications (6) Atrial fibrillation with RVR Current Visit: Yes Status: Acute Assessment and plan: Improved Low BP limits medication options Continue amiodarone (7) Hypoglycemia associated with diabetes Current Visit: Yes Status: Acute Assessment and plan: Improved Sliding scale insulin and levemir FS have improved (8) Skin excoriation Current Visit: Yes Status: Chronic Assessment and plan: Continue dressing Continue nystatin powder (9) Lactic acidosis Current Visit: Yes Status: Resolved Assessment and plan: Resolved Secondary to hypoperfusion and Afib with RVR (10) Chronic anticoagulation Current Visit: Yes Status: Chronic Assessment and plan: Continue Xarelto Monitor H/H Urine looks cloudy, will monitor (11) Morbid obesity with BMI of 50.0-59.9, adult Current Visit: Yes Status: Chronic Assessment and plan: Lifestyle changes (12) Dysphagia Current Visit: Yes Status: Chronic Assessment and plan: Speech and swallow eval noted, follow recommendations Qualifiers: Dysphagia type: unspecified Qualified Code(s): R13.10 - Dysphagia, unspecified (13) Hypomagnesemia Current Visit: Yes Status: Acute Assessment and plan: Mag WNL (14) Hypokalemia Current Visit: Yes Status: Acute Assessment and plan: Improved (15) CHF (congestive heart failure) Current Visit: Yes Status: Chronic Assessment and plan: Patient with generalized edema However, CXR shows no evidence of CHF. Echo from July 2016 showed EF preserved 60%, mild diastolic dysfunction, mild to moderate MR, no pulmonary hypertension. BNP noted to be only 334. Continue to monitor respiratory status No diuresis for now Anasarca possibly from hypoalbuminemia ECHO noted for EF 65% with only mild diastolic dysfunction. Qualifiers: Congestive heart failure type: diastolic Congestive heart failure chronicity: chronic Qualified Code(s): I50.32 - Chronic diastolic (congestive ) heart failure (16) Oliguria Current Visit: Yes Status: Acute Assessment and plan: Improved Continue strict I/O Renal USS unremarkable Nephrology eval appreciated (17) Anemia Current Visit: Yes Status: Acute Assessment and plan: HB noted to be slowly worsening Patient's anemia work up for iron/Vit B12 or folate deficiency negative She has bilirubinemia, with suspicion for hemolysis However, her LDH is WNL Haptoglobin has been ordered and is pending She has no hematuria, she has not had any BM, hence no current source of bleeding It is possible her anemia is due to sepsis Will continue to trend closely Patient is on anticoagulation for Afib, she is high risk for bleeding She is hemodynamically stable Qualifiers: Anemia type: unspecified type Qualified Code(s): D64.9 - Anemia, unspecified (18) Hypotension Current Visit: Yes Status: Acute Assessment and plan: Possibly secondary to severe sepsis with adrenal insufficiency See below Qualifiers: Hypotension type: unspecified hypotension type Qualified Code(s): I95.9 - Hypotension, unspecified (19) Adrenal insufficiency Current Visit: Yes Status: Acute Assessment and plan: Continue hydrocortisone, monitor FS and blood pressure Start PPI for GI prophylaxis-patient is on xarelto - Subjective Interval history: 66 F patient with Morbid Obesity , multiple skin lesions with excoriation and weeping , CHFpEF, COPD, Afib, s/p LHC 09/2016 without any significant CAD, DM II being managed for Afib with RVR with hypotension and lactic acidosis, Severe sepsis secondary to UTI, adrenal insufficiency Seen at bedside She feels she has made much improvement and her appetite is better Clinically, she is still icteric HR has improved on current medications Hypoglycemia has resolved and she is hyperglycemic now BP is improving She continues to have anemia , with worsening bilirubinemia. LDH WNL, haptoglobin is pending, but her PLT are WNL Leukocytosis has resolved Renal function remains stable Oliguria is slowly resolving - Constitutional Vitals: Temp Pulse Resp BP Pulse Ox 98.8 F 68 16 87/47 99 12/18/16 07:56 12/18/16 07:56 12/18/16 07:56 12/18/16 07:56 12/18/16 07:56 General appearance: Present: A&O X 3, morbidly obese, pleasant, no acute distress Exam: VS-Afib HR 89-100 BP WNL at time of review Not in any form of distress, morbidly obese with anasarca and generalized edema , Speaks full sentences Scleral and facial icterus Chest is clear to auscultation bilaterally anteriorly and posteriorly Heart sound: Normal rate and rhythm, no murmurs, gallops, rubs Abdomen: Is obese, no palpable abnormalities Extremities: Bilateral pitting pedal edema, bilateral lower extremity redness, no differential warmth, no tenderness Integument: Skin lesions are dressed Internal Medicine: Result - Labs CBC & Chem 7: 12/18/16 04:00 12/18/16 04:00 Labs: Short CBC 12/18/16 Range/Units 04:00 WBC 9.6 (4.3-11.1) K/mcL Hgb 8.7 L (11.5-15.4) g/dL Hct 26.1 L (35.3-44.9) % Plt Count 213 (140-400) K/mcL Neutrophils # 7.8 (1.6-8.9) K/mcL BMP 12/18/16 04:00 Sodium 133 L Potassium 4.8 H Chloride 104 Carbon Dioxide 22 BUN 9 Creatinine 0.66 Glucose 184 H Calcium 7.8 L Liver Function 12/17/16 Range/Units 05:05 Total Bilirubin 4.3 H (0.2-1.2) mg/dL Direct Bilirubin 2.4 H (0.0-0.5) mg/dL AST 198 H (5-34) Units/L ALT 53 (0-55) Units/L Alkaline Phosphatase 295 H (38-126) Units/L Albumin 2.2 L D (3.5-5.0) g/dL - ABG Interpretation ABG results: ABG ABG pH 7.49 pH Units (7.32-7.45) H 12/14/16 04:10 ABG pCO2 35 mmHg (35-45) 12/14/16 04:10 ABG pO2 97 mmHg (85-104) 12/14/16 04:10 ABG O2 Saturation 98 % (95-98) 12/14/16 04:10 - VTE Reasons for not Prescribing Prophylaxis: Not indicated-Anticoagulated or INR therapeutic Consult Discharge Plan - Plan Referrals: Carolyn Reardon DO [Partnered Physician] - 12/27/16 9:30 am Monica Chahal, [facility]OOKE [Primary Care Provider] -
[2016-12-18] MEDS: Insulin LISPRO 300 UNITS/3 ML VIAL SQ SCH ×5 (12:34→21:15)
[2016-12-18] MEDS: Sennosides/Docusate Sodium TABLET PO SCH ×2 (12:34→20:51)
[2016-12-18] MEDS: *HR* Rivaroxaban 10 MG TABLET PO SCH (16:07)
[2016-12-18] MEDS: Ertapenem 1,000 MG in 0.9 % Sodium Chloride Mini Bag 100 ML IVPB SCH (16:07)
[2016-12-18] MEDS: Insulin DETEMIR 100 UNIT/ML X5UNITS SQ SCH (20:51)
[2016-12-18] MEDS: Albuterol 2.5 MG/3 ML NEBULIZER IH PRN (23:00)
[2016-12-19] MEDS: Hydrocortisone Sodium Succ 100 MG/2 ML VIAL IVP SCH ×4 (03:05→19:49)
[2016-12-19 04:59] LABS: Hematocrit 25.7 % (35.3-44.9); Hemoglobin 8.6 g/dL (11.5-15.4); Mean Corpuscular HGB Conc 33.5 g/dL (31.6-35.5); Mean Corpuscular Hemoglobin 27.7 pg (28.0-33.3); Mean Corpuscular Volume 82.9 fL (83.0-100.0); Mean Platelet Volume 10.9 fL (9.4-12.4); Platelet Count 237 K/mcL (140-400); Red Cell Distribution Width 15.4 % (11.5-14.5); Segmented Neutrophils % 79.8 %
[2016-12-19 05:00] LABS: Basophils % 0.1 %; Eosinophils % 0.1 %; Immature Granulocytes % 3.4 % (0-4); Lymphocytes # 1.5 K/mcL (0.6-4.6); Lymphocytes % 11.7 %; Monocytes # 0.6 K/mcL (0.0-1.3); Monocytes % 4.9 %
[2016-12-19 05:20] LABS: Alanine Aminotransferase 48 Units/L (0-55); Albumin 2.3 g/dL (3.5-5.0); Albumin/Globulin Ratio 0.9 (1.1-2.2); Alkaline Phosphatase 356 Units/L (38-126); Aspartate Amino Transferase 142 Units/L (5-34); BUN/Creatinine Ratio 18 (6-26); Bilirubin,Total 3.2 mg/dL (0.2-1.2); Blood Urea Nitrogen 14 mg/dL (7-20); Carbon Dioxide 25 mEq/L (19-29); Chloride 108 mEq/L (98-109); Globulin 2.5 g/dL (2.4-3.5); Glucose 184 mg/dL (70-99); Osmolality,Calculated 289 (280-300); Potassium 4.4 mEq/L (3.5-4.5); Sodium 137 mEq/L (136-145); Total Protein 4.8 g/dL (6.0-8.3); eGFR For African Americans > 60 (> 60); eGFR For Non-African Americans > 60 (> 60)
[2016-12-19] MEDS: Fluconazole 100 MG TABLET PO SCH (08:08)
[2016-12-19] MEDS: Insulin LISPRO 300 UNITS/3 ML VIAL SQ SCH ×7 (08:08→20:09)
[2016-12-19] MEDS: Pantoprazole 40 MG VIAL IVP SCH (08:08)
[2016-12-19] MEDS: *HR* Amiodarone 200 MG TABLET PO SCH ×2 (08:09→19:49)
[2016-12-19] MEDS: Magnesium Oxide 400 MG TABLET PO SCH ×2 (08:09→19:49)
[2016-12-19] MEDS: Lactobacillus 1 EACH CAP.SPRINK PO SCH ×2 (08:09→19:49)
[2016-12-19] MEDS: Nystatin POWDER 30 GM BOTTLE TP SCH ×2 (08:19→20:51)
[2016-12-19] MEDS: Miconazole 2% ointment 114 GM TUBE TP SCH (08:19)
[2016-12-19] MEDS: Sennosides/Docusate Sodium TABLET PO SCH ×2 (08:19→20:11)
--- NOTE | 2016-12-19 10:18 | Internal Med Progress Note ---
Date of Encounter: 12/19/16 Time of Encounter: 09:10 - Assessment and plan (1) Sepsis Current Visit: Yes Status: Acute Assessment and plan: Suspected source is UTI Leukocytosis and lactic acidosis resolved , however leukocytosis this morning, possibly from hydrocortisone Patient remains afebrile and clinically stable Continue Etapernem Preliminary urine culture with sandro Continue Fluconazole Follow final urine culture results, will deescalate prn Qualifiers: Sepsis type: sepsis due to unspecified organism Qualified Code(s): A41.9 - Sepsis, unspecified organism (2) UTI (urinary tract infection) Current Visit: Yes Status: Acute Assessment and plan: As above Qualifiers: Urinary tract infection type: site unspecified Hematuria presence: without hematuria Qualified Code(s): N39.0 - Urinary tract infection, site not specified (3) Generalized weakness Current Visit: Yes Status: Chronic Assessment and plan: PT/OT eval prior to discharge Patient was resident of SNF for rehab prior to admission (4) Anasarca Current Visit: Yes Status: Chronic Assessment and plan: Chronic, continue compression stockings (5) Diabetes Current Visit: Yes Status: Chronic Assessment and plan: A1C 6.3% Continue Sliding scale, levemir, lispro FS ACHS Qualifiers: Diabetes mellitus type: type 2 Diabetes mellitus complication status: with unspecified complications Diabetes mellitus skilled nursing insulin use: without skilled nursing use Qualified Code(s): E11.8 - Type 2 diabetes mellitus with unspecified complications (6) Atrial fibrillation with RVR Current Visit: Yes Status: Acute Assessment and plan: Improved Low BP limits medication options Continue amiodarone (7) Hypoglycemia associated with diabetes Current Visit: Yes Status: Resolved Assessment and plan: Improved Sliding scale insulin and levemir FS have improved (8) Skin excoriation Current Visit: Yes Status: Chronic Assessment and plan: Continue dressing Continue nystatin powder (9) Lactic acidosis Current Visit: Yes Status: Resolved Assessment and plan: Resolved Secondary to hypoperfusion and Afib with RVR (10) Chronic anticoagulation Current Visit: Yes Status: Chronic Assessment and plan: H/H continues to slowly drop FOBT positive Patient with no visible melena or hematemesis At this time, will consult gen surgery, hold Xarelto till GIB ruled out (11) Morbid obesity with BMI of 50.0-59.9, adult Current Visit: Yes Status: Chronic Assessment and plan: Lifestyle changes (12) Dysphagia Current Visit: Yes Status: Chronic Assessment and plan: Improved Qualifiers: Dysphagia type: unspecified Qualified Code(s): R13.10 - Dysphagia, unspecified (13) Hypomagnesemia Current Visit: Yes Status: Resolved Assessment and plan: Mag WNL (14) Hypokalemia Current Visit: Yes Status: Resolved Assessment and plan: Improved (15) CHF (congestive heart failure) Current Visit: Yes Status: Chronic Assessment and plan: Patient with generalized edema However, CXR shows no evidence of CHF. Echo from July 2016 showed EF preserved 60%, mild diastolic dysfunction, mild to moderate MR, no pulmonary hypertension. BNP noted to be only 334. Continue to monitor respiratory status No diuresis for now Anasarca possibly from hypoalbuminemia ECHO noted for EF 65% with only mild diastolic dysfunction. Qualifiers: Congestive heart failure type: diastolic Congestive heart failure chronicity: chronic Qualified Code(s): I50.32 - Chronic diastolic (congestive ) heart failure (16) Oliguria Current Visit: Yes Status: Acute Assessment and plan: Improved Continue strict I/O Renal USS unremarkable Nephrology eval appreciated (17) Anemia Current Visit: Yes Status: Acute Assessment and plan: HB noted to be slowly worsening, possibly from combination of sepsis, poor oral intake Patient's anemia work up for iron/Vit B12 or folate deficiency negative She has bilirubinemia, LDH WNL, hapoglobin ordered pending FOBT positive Consult GI/Surgery Qualifiers: Anemia type: unspecified type Qualified Code(s): D64.9 - Anemia, unspecified (18) Hypotension Current Visit: Yes Status: Acute Assessment and plan: Possibly secondary to severe sepsis with adrenal insufficiency See below Qualifiers: Hypotension type: unspecified hypotension type Qualified Code(s): I95.9 - Hypotension, unspecified (19) Adrenal insufficiency Current Visit: Yes Status: Acute Assessment and plan: Continue hydrocortisone, monitor FS and blood pressure Start PPI for GI prophylaxis Consider tapering from a.m (20) Decubitus ulcer Current Visit: Yes Status: Chronic Assessment and plan: Present on admission Continue wound dressing Qualifiers: Pressure ulcer location: buttock Pressure ulcer stage: stage 2 Laterality : unspecified laterality Qualified Code(s): L89.302 - Pressure ulcer of unspecified buttock, stage 2 - Subjective Interval history: 66 F patient with Morbid Obesity , multiple skin lesions with excoriation and weeping , CHFpEF, COPD, Afib, s/p C 09/2016 without any significant CAD, DM II being managed for Afib with RVR with hypotension and lactic acidosis, Severe sepsis secondary to UTI, adrenal insufficiency Seen at bedside Denies new complains She generally seems to be improving , and asymptomatic of her low blood pressures FOBT positive, will consult Gen Surg as patient has worsening anemia - Constitutional Vitals: Temp Pulse Resp BP Pulse Ox 98.0 F 67 16 86/50 96 12/19/16 08:32 12/19/16 08:32 12/19/16 08:32 12/19/16 08:32 12/19/16 08:32 General appearance: Present: A&O X 3, morbidly obese, pleasant, no acute distress Exam: VSS Not in any form of distress, morbidly obese with anasarca and generalized edema , Speaks full sentences Scleral and facial icterus, improved Chest is clear to auscultation bilaterally anteriorly and posteriorly Heart sound: Normal rate and rhythm, no murmurs, gallops, rubs Abdomen: Is obese, no palpable abnormalities Extremities: Bilateral pitting pedal edema, bilateral lower extremity redness, no differential warmth, no tenderness Integument: Skin lesions are dressed Internal Medicine: Result - Labs CBC & Chem 7: 12/19/16 04:50 12/19/16 04:50 Labs: Short CBC 12/19/16 Range/Units 04:50 WBC 12.5 H (4.3-11.1) K/mcL Hgb 8.6 L (11.5-15.4) g/dL Hct 25.7 L (35.3-44.9) % Plt Count 237 (140-400) K/mcL Neutrophils # 10.0 H (1.6-8.9) K/mcL BMP 12/19/16 04:50 Sodium 137 Potassium 4.4 Chloride 108 Carbon Dioxide 25 BUN 14 Creatinine 0.78 Glucose 184 H Calcium 8.0 L Liver Function 12/19/16 Range/Units 04:50 Total Bilirubin 3.2 H (0.2-1.2) mg/dL AST 142 H (5-34) Units/L ALT 48 (0-55) Units/L Alkaline Phosphatase 356 H (38-126) Units/L Albumin 2.3 L (3.5-5.0) g/dL - ABG Interpretation ABG results: ABG ABG pH 7.49 pH Units (7.32-7.45) H 12/14/16 04:10 ABG pCO2 35 mmHg (35-45) 12/14/16 04:10 ABG pO2 97 mmHg (85-104) 12/14/16 04:10 ABG O2 Saturation 98 % (95-98) 12/14/16 04:10 - VTE Reasons for not Prescribing Prophylaxis: Not indicated-Anticoagulated or INR therapeutic Consult Discharge Plan - Plan Referrals: Carolyn Reardon DO [Partnered Physician] - 12/27/16 9:30 am Monica Chahal, [facility] [Primary Care Provider] -
--- NOTE | 2016-12-19 13:06 | General Surgery Consult Note ---
Date of Encounter: 12/19/16 Time of Encounter: 11:20 Assessment and Plan (1) Anemia Current Visit: Yes Status: Acute The patient has had slow decrease in hemoglobin and hematocrit. She denies vomiting blood or rectal bleeding. She denies melanotic stools. She states that she did have endoscopic evaluation she was in the hospital in [place] 2 months ago but she is unaware of those findings. I would like to obtain those records before making further recommendations. At this point she does not appear to be actively bleeding. I would proceed with urgent or repeat colonoscopy only for evidence of active bleeding at this point. Likely anemia of chronic illness that is clinically disclosed with hydration Qualifiers: Anemia type: unspecified type Qualified Code(s): D64.9 - Anemia, unspecified History of Present Illness Consult date: 12/19/16 Reason for consult: other (Slow onset anemia) History of present illness: The patient has been in extended care facility for several months. She was admitted originally for severe congestive heart failure and anasarca. She has had treatment in [place] and [facility] and really has not angulated very well in the last several months. She states that she had endoscopic evaluation of unknown type she was in the hospital at [place] 2 months ago. We would need to get the records from this endoscopic evaluation. She denies vomiting or vomiting blood. She denies passing bright red blood per rectum. She denies guaiac positive stool. She originally presented with hypotension and urinary tract infection as well as A. fib and RVR this is been treated aggressively. During this period of time her hemoglobin and hematocrit have made a slow trend downward and she now has a hematocrit of 27%. This may represent anemia of chronic illness, however I would like to review the endoscopic records from her recent admission in [place] prior to recommending further endoscopy. At this point I would only recommend urgent endoscopy for clinical bleeding. Past Med Surg Social Fam HX - Past Medical History Medical history: arthritis, asthma, atrial fibrillation, CHF, COPD, diabetes, GERD Psychiatric history: anxiety, depression, panic disorder - Past Surgical History Surgical History: angioplasty/stent, hysterectomy - Social History Smoking Status: Never smoker Smokeless Tobacco Status: No Alcohol use: none Drug use: none - Family History Brother Living Status: Still Living Hx Family Cardiac Disorders: Yes (HTN) Hx Family Endocrine Disorder: Yes (Diabetes) Mother Living Status: Hx Family Cardiac Disorders: Yes (HTN) Hx Family Endocrine Disorder: Yes (Diabetes) Father Living Status: Hx Family Cardiac Disorders: Yes (CABG x3 HTN diabetes) Hx Family Respiratory Disorders: No Hx Family Cancer: No Hx Family GI Disorders: No Hx Family Endocrine Disorder: Yes Hx Family Neuromuscular Disorders: No Hx Family Neurologic Disorders: No Hx Family HEENT Disorders: No Hx Family Autoimmune Disorders: No Medications and Allergies Albuterol Sulfate [Ventolin Hfa] 2 puff IH Q4H PRN 12/12/16 [History] Aspirin 81 mg PO DAILY 12/12/16 [History] Cetirizine HCl [All Day Allergy] 10 mg PO DAILY 12/12/16 [History] Diltiazem CD (24hr) [Cardizem CD] 300 mg PO DAILY 12/12/16 [History] HYDROcodone/Acet 5/325 mg [[place] 5-325 mg] 1 tab PO Q6H PRN 12/12/16 [History] LORazepam [Ativan] 0.5 mg PO BID PRN 12/12/16 [History] Levalbuterol Neb [Xopenex Neb] 0.63 mg IH Q6H PRN 12/12/16 [History] Metoprolol Tartrate 25 mg PO BID 12/12/16 [History] Montelukast Sodium [Singulair] 10 mg PO DAILY 12/12/16 [History] Multivitamin [Multi-Day Vitamins] 1 tab PO DAILY 12/12/16 [History] Nitroglycerin [Nitrostat] 0.4 mg SL AD PRN 12/12/16 [History] Nystatin POWDER [Nystop] 1 appl TP BID 12/12/16 [History] Rivaroxaban [Xarelto] 20 mg PO DAILY 12/12/16 [History] Fluticasone Propionate Nasal [Flonase] 50 mcg NS DAILY 12/13/16 [History] Furosemide [Lasix] 40 mg PO BID 12/13/16 [History] Hydroxyzine HCl 25 mg PO Q8H PRN 12/13/16 [History] Potassium Chloride [K-Tab ER] 20 meq PO DAILY 12/13/16 [History] Allergies levofloxacin [From Levaquin] Allergy (Verified 09/28/16 08:50) Hives Penicillins Allergy (Verified 09/28/16 08:50) Blister prednisone Allergy (Verified 09/28/16 08:50) See Comments all over swelling Sulfa (Sulfonamide Antibiotics) Allergy (Verified 09/28/16 08:50) Hives Banana Adverse Reaction (Severe, Verified 09/28/16 08:50) Blister egg Adverse Reaction (Severe, Verified 09/28/16 08:50) Throat swelling nitrofurantoin [From Macrobid] Adverse Reaction (Severe, Verified 09/28/16 08:50 ) Bruising on arms Review of Systems All systems PM: A 10-system review of systems was performed and is negative for pertinent findings except as documented above in the HPI. General Surgery Exam Initial Vital Signs Temp Pulse Resp BP Pulse Ox 97.6 F 140 20 102/80 96 12/12/16 23:31 12/12/16 23:31 12/12/16 23:31 12/12/16 23:31 12/12/16 23:31 - General physical appearance chronically ill, obese - Respiratory normal expansion, normal respiratory effort, clear to percussion, clear to auscultation crackles: bilateral - Cardiovascular Cardiovascular exam: Present: irregular rhythm, no murmurs/rubs/gallops - Abdomen Abdomen general surgery: Present: bowel sounds present, soft, non tender (Obese) - Psychiatric Psychiatric general surgery: Present: A&Ox3 Exam Initial Vital Signs Temp Pulse Resp BP Pulse Ox 97.6 F 140 20 102/80 96 12/12/16 23:31 12/12/16 23:31 12/12/16 23:31 12/12/16 23:31 12/12/16 23:31 Results - Labs 12/19/16 04:50 12/19/16 04:50 Abnormal lab results WBC 12.5 K/mcL (4.3-11.1) H 12/19/16 04:50 RBC 3.10 M/mcL (3.82-4.97) L 12/19/16 04:50 Hgb 8.6 g/dL (11.5-15.4) L 12/19/16 04:50 Hct 25.7 % (35.3-44.9) L 12/19/16 04:50 MCV 82.9 fL (83.0-100.0) L 12/19/16 04:50 MCH 27.7 pg (28.0-33.3) L 12/19/16 04:50 RDW 15.4 % (11.5-14.5) H 12/19/16 04:50 Neutrophils # 10.0 K/mcL (1.6-8.9) H 12/19/16 04:50 Immature Plt Fraction 7.1 % (1.1-6.1) H 12/14/16 06:34 ABG pH 7.49 pH Units (7.32-7.45) H 12/14/16 04:10 ABG Total CO2 27.8 mEq/L (20-26) H 12/14/16 04:10 ABG Base Excess 3.4 mEq/L (-2.0 to 3.0) H 12/14/16 04:10 Glucose 184 mg/dL (70-99) H 12/19/16 04:50 POC Glucose 177 (58-89) H 12/18/16 20:53 Calcium 8.0 mg/dL (8.6-10.8) L 12/19/16 04:50 % Saturation 147 % (15-50) H 12/17/16 04:00 Transferrin 33 mg/dL (180-382) L 12/17/16 04:00 Ferritin 877 ng/ml (5-204) H 12/17/16 04:00 Total Bilirubin 3.2 mg/dL (0.2-1.2) H 12/19/16 04:50 Direct Bilirubin 2.4 mg/dL (0.0-0.5) H 12/17/16 05:05 Indirect Bilirubin 1.9 mg/dL (0.0-1.2) H 12/17/16 05:05 AST 142 Units/L (5-34) H 12/19/16 04:50 Alkaline Phosphatase 356 Units/L (38-126) H 12/19/16 04:50 C-Reactive Protein 36 mg/L (Less than 5) H 12/13/16 02:49 Serum Total Protein 4.8 g/dL (6.0-8.3) L 12/19/16 04:50 Albumin 2.3 g/dL (3.5-5.0) L 12/19/16 04:50 Albumin/Globulin Ratio 0.9 (1.1-2.2) L 12/19/16 04:50 Vitamin B12 1704 pg/mL (213-816) H 12/17/16 04:00 Urine Color [place] (Yellow) A 12/16/16 17:30 Urine Clarity Cloudy (Clear) A 12/16/16 17:30 Urine Protein 100 mg/dL (Neg-Trace) H 12/16/16 17:30 Urine Blood Moderate (Negative) H 12/16/16 17:30 Urine Nitrite Positive (Negative) A 12/16/16 17:30 Urine Bilirubin Moderate (Negative) H 12/16/16 17:30 Urine Urobilinogen 4.0 mg/dL (Normal) H 12/16/16 17:30 Ur Leukocyte Esterase Moderate (Negative) H 12/16/16 17:30 Urine Microscopic RBC 15-30 per hpf (0-3) H 12/16/16 17:30 Urine Microscopic WBC 50-100 per hpf (0-3) H 12/16/16 17:30 Ur Squamous Epith Cells Many per lpf (None-Few) H 12/16/16 17:30 Urine Yeast Many per hpf (None Seen) H 12/16/16 17:30 Ur Culture Indicated? YES (NO) A 12/16/16 17:30 Protein/Creatinin Ratio 0.70 mg/mg (0-0.20) H 12/17/16 03:40 Urine Total Protein 73 mg/dL (1-14) H 12/17/16 03:40 Stool Occult Blood Positive (Negative) A 12/18/16 18:10 Digoxin 0.7 ng/mL (0.8-2.0) L 12/16/16 04:20 Diabetes panel 12/19/16 Range/Units 04:50 Sodium 137 (136-145) mEq/L Potassium 4.4 (3.5-4.5) mEq/L Chloride 108 (98-109) mEq/L Carbon Dioxide 25 (19-29) mEq/L BUN 14 (7-20) mg/dL Creatinine 0.78 (0.57-1.11) mg/dL Glucose 184 H (70-99) mg/dL Calcium 8.0 L (8.6-10.8) mg/dL AST 142 H (5-34) Units/L ALT 48 (0-55) Units/L Alkaline Phosphatase 356 H (38-126) Units/L Albumin 2.3 L (3.5-5.0) g/dL Calcium panel 12/19/16 Range/Units 04:50 Calcium 8.0 L (8.6-10.8) mg/dL Albumin 2.3 L (3.5-5.0) g/dL Pituitary panel 12/19/16 Range/Units 04:50 Sodium 137 (136-145) mEq/L Potassium 4.4 (3.5-4.5) mEq/L Chloride 108 (98-109) mEq/L Carbon Dioxide 25 (19-29) mEq/L BUN 14 (7-20) mg/dL Creatinine 0.78 (0.57-1.11) mg/dL Glucose 184 H (70-99) mg/dL Calcium 8.0 L (8.6-10.8) mg/dL Adrenal panel 12/19/16 Range/Units 04:50 Sodium 137 (136-145) mEq/L Potassium 4.4 (3.5-4.5) mEq/L Chloride 108 (98-109) mEq/L Carbon Dioxide 25 (19-29) mEq/L BUN 14 (7-20) mg/dL Creatinine 0.78 (0.57-1.11) mg/dL Glucose 184 H (70-99) mg/dL Calcium 8.0 L (8.6-10.8) mg/dL Total Bilirubin 3.2 H (0.2-1.2) mg/dL AST 142 H (5-34) Units/L ALT 48 (0-55) Units/L Alkaline Phosphatase 356 H (38-126) Units/L Albumin 2.3 L (3.5-5.0) g/dL All other labs normal. Consult Discharge Plan - Plan Referrals: Carolyn Reardon DO [Partnered Physician] - 12/27/16 9:30 am Monica Chahal, BROOKE [Primary Care Provider] -
[2016-12-19] MEDS: Albuterol 2.5 MG/3 ML NEBULIZER IH PRN (15:31)
[2016-12-19] MEDS: Ertapenem 1,000 MG in 0.9 % Sodium Chloride Mini Bag 100 ML IVPB SCH (16:42)
[2016-12-19] MEDS: Insulin DETEMIR 100 UNIT/ML X5UNITS SQ SCH (20:10)
[2016-12-20] MEDS: Hydrocortisone Sodium Succ 100 MG/2 ML VIAL IVP SCH ×3 (02:57→17:17)
[2016-12-20 04:38] LABS: Hemoglobin 9.2 g/dL (11.5-15.4); Mean Corpuscular HGB Conc 32.9 g/dL (31.6-35.5); Mean Corpuscular Volume 85.1 fL (83.0-100.0); Mean Platelet Volume 10.7 fL (9.4-12.4); Nucleated Red Blood Cells 0.3 /100 WBC (0); Platelet Count 289 K/mcL (140-400); Red Blood Count 3.29 M/mcL (3.82-4.97)
[2016-12-20 04:58] LABS: Alanine Aminotransferase 79 Units/L (0-55); Albumin 2.2 g/dL (3.5-5.0); Albumin/Globulin Ratio 0.8 (1.1-2.2); Alkaline Phosphatase 410 Units/L (38-126); Aspartate Amino Transferase 180 Units/L (5-34); BUN/Creatinine Ratio 28 (6-26); Bilirubin,Direct 1.7 mg/dL (0.0-0.5); Bilirubin,Indirect 0.8 mg/dL (0.0-1.2); Bilirubin,Total 2.5 mg/dL (0.2-1.2); Blood Urea Nitrogen 23 mg/dL (7-20); Calcium 7.9 mg/dL (8.6-10.8); Carbon Dioxide 24 mEq/L (19-29); Chloride 111 mEq/L (98-109); Globulin 2.7 g/dL (2.4-3.5); Glucose 167 mg/dL (70-99); Osmolality,Calculated 295 (280-300); Potassium 4.8 mEq/L (3.5-4.5); Sodium 139 mEq/L (136-145); Total Protein 4.9 g/dL (6.0-8.3); eGFR For African Americans > 60 (> 60); eGFR For Non-African Americans > 60 (> 60)
[2016-12-20 05:02] LABS: Lymphocytes # 2.9 K/mcL (0.6-4.6); Monocytes # 0.7 K/mcL (0.0-1.3); Neutrophils # 10.2 K/mcL (1.6-8.9); Platelet Estimate Normal (Normal)
[2016-12-20 05:03] LABS: Anisocytosis 1+ (Not Present); Polychromasia 1+ (Not Present); Target Cells 2+ (Not Present)
[2016-12-20] MEDS: Miconazole 2% ointment 114 GM TUBE TP SCH (08:25)
[2016-12-20] MEDS: Insulin LISPRO 300 UNITS/3 ML VIAL SQ SCH ×7 (08:25→21:48)
[2016-12-20] MEDS: *HR* Amiodarone 200 MG TABLET PO SCH ×2 (08:26→21:50)
[2016-12-20] MEDS: Lactobacillus 1 EACH CAP.SPRINK PO SCH ×2 (08:26→21:50)
[2016-12-20] MEDS: Fluconazole 100 MG TABLET PO SCH (08:26)
[2016-12-20] MEDS: Pantoprazole 40 MG VIAL IVP SCH (08:27)
[2016-12-20] MEDS: Nystatin POWDER 30 GM BOTTLE TP SCH ×2 (08:27→21:50)
[2016-12-20] MEDS: Sennosides/Docusate Sodium TABLET PO SCH ×2 (08:27→21:50)
[2016-12-20] MEDS: Magnesium Oxide 400 MG TABLET PO SCH ×2 (08:27→21:50)
[2016-12-20 10:19] LABS: Hepatitis B Surface Antigen Nonreactive (Nonreactive); Hepatitis C Virus Antibody Nonreactive (Nonreactive)
--- NOTE | 2016-12-20 10:26 | Internal Med Progress Note ---
Date of Encounter: 12/20/16 Time of Encounter: 10:26 - Assessment and plan (1) Sepsis Current Visit: Yes Status: Acute Assessment and plan: Suspected source is UTI Leukocytosis and lactic acidosis resolved , however leukocytosis this morning, possibly from hydrocortisone Patient remains afebrile and clinically stable D/C etapernem Preliminary urine culture with sandro Continue Fluconazole Follow final urine culture results, will deescalate prn Qualifiers: Sepsis type: sepsis due to unspecified organism Qualified Code(s): A41.9 - Sepsis, unspecified organism (2) UTI (urinary tract infection) Current Visit: Yes Status: Acute Assessment and plan: As above Qualifiers: Urinary tract infection type: site unspecified Hematuria presence: without hematuria Qualified Code(s): N39.0 - Urinary tract infection, site not specified (3) Generalized weakness Current Visit: Yes Status: Chronic Assessment and plan: PT/OT eval prior to discharge Patient was resident of SNF for rehab prior to admission (4) Anasarca Current Visit: Yes Status: Chronic Assessment and plan: Chronic, continue compression stockings Start IV lasix 40mg daily As BP improves may give additional prn doses (5) Diabetes Current Visit: Yes Status: Chronic Assessment and plan: A1C 6.3% Continue Sliding scale, levemir, lispro FS ACHS Qualifiers: Diabetes mellitus type: type 2 Diabetes mellitus complication status: with unspecified complications Diabetes mellitus longterm insulin use: without longterm use Qualified Code(s): E11.8 - Type 2 diabetes mellitus with unspecified complications (6) Atrial fibrillation with RVR Current Visit: Yes Status: Resolved Assessment and plan: Improved Continue amiodarone (7) Hypoglycemia associated with diabetes Current Visit: Yes Status: Resolved Assessment and plan: Improved Sliding scale insulin and levemir FS have improved (8) Skin excoriation Current Visit: Yes Status: Chronic Assessment and plan: Continue dressing Continue nystatin powder (9) Lactic acidosis Current Visit: Yes Status: Resolved Assessment and plan: Resolved Secondary to hypoperfusion and Afib with RVR (10) Chronic anticoagulation Current Visit: Yes Status: Chronic Assessment and plan: H/H continues to slowly drop FOBT positive Surgery eval noted, no intervention Hb is stable Restart Xarelto (11) Morbid obesity with BMI of 50.0-59.9, adult Current Visit: Yes Status: Chronic Assessment and plan: Lifestyle changes (12) Dysphagia Current Visit: Yes Status: Resolved Assessment and plan: Improved Change diet to cardiac Qualifiers: Dysphagia type: unspecified Qualified Code(s): R13.10 - Dysphagia, unspecified (13) Hypomagnesemia Current Visit: Yes Status: Resolved Assessment and plan: Mag WNL (14) Hypokalemia Current Visit: Yes Status: Resolved Assessment and plan: Improved (15) CHF (congestive heart failure) Current Visit: Yes Status: Chronic Assessment and plan: Patient with generalized edema However, CXR shows no evidence of CHF. Echo from July 2016 showed EF preserved 60%, mild diastolic dysfunction, mild to moderate MR, no pulmonary hypertension. BNP noted to be only 334. Continue to monitor respiratory status ECHO noted for EF 65% with only mild diastolic dysfunction. Will start IV lasix today Qualifiers: Congestive heart failure type: diastolic Congestive heart failure chronicity: chronic Qualified Code(s): I50.32 - Chronic diastolic (congestive ) heart failure (16) Oliguria Current Visit: Yes Status: Acute Assessment and plan: Improved Continue strict I/O Renal USS unremarkable Nephrology eval appreciated (17) Anemia Current Visit: Yes Status: Acute Assessment and plan: HB noted to be slowly worsening, possibly from combination of sepsis, poor oral intake Patient's anemia work up for iron/Vit B12 or folate deficiency negative She has bilirubinemia, LDH WNL, hapoglobin ordered pending FOBT positive GI eval noted and appreciated, awaiting prior Endoscopy report No intervention for now restart Xarelto Hb stable Qualifiers: Anemia type: unspecified type Qualified Code(s): D64.9 - Anemia, unspecified (18) Hypotension Current Visit: Yes Status: Acute Assessment and plan: Possibly secondary to severe sepsis with adrenal insufficiency See below Qualifiers: Hypotension type: unspecified hypotension type Qualified Code(s): I95.9 - Hypotension, unspecified (19) Adrenal insufficiency Current Visit: Yes Status: Acute Assessment and plan: Continue hydrocortisone, monitor FS and blood pressure Start PPI for GI prophylaxis Consider tapering from a.m (20) Decubitus ulcer Current Visit: Yes Status: Chronic Assessment and plan: Present on admission Continue wound dressing Qualifiers: Pressure ulcer location: buttock Pressure ulcer stage: stage 2 Laterality : unspecified laterality Qualified Code(s): L89.302 - Pressure ulcer of unspecified buttock, stage 2 - Subjective Interval history: 66 F patient with Morbid Obesity , multiple skin lesions with excoriation and weeping , CHFpEF, COPD, Afib, s/p C 09/2016 without any significant CAD, DM II being managed for Afib with RVR with hypotension and lactic acidosis, Severe sepsis secondary to UTI, adrenal insufficiency Seen at bedside Denies new complains BP has improved with hydrocortisone, will continue same HR is controlled Will start on diuresis for her anasarca since BP is improving - Constitutional Vitals: Temp Pulse Resp BP Pulse Ox 98.2 F 74 18 108/62 98 12/20/16 08:30 12/20/16 08:30 12/20/16 08:30 12/20/16 08:30 12/20/16 08:30 General appearance: Present: A&O X 3, morbidly obese, pleasant, no acute distress Exam: VSS Not in any form of distress, morbidly obese with anasarca and generalized edema , Speaks full sentences Scleral and facial icterus, improved Chest is clear to auscultation bilaterally anteriorly and posteriorly Heart sound: Normal rate and rhythm, no murmurs, gallops, rubs Abdomen: Is obese, no palpable abnormalities Extremities: Bilateral pitting pedal edema, bilateral lower extremity redness, no differential warmth, no tenderness Integument: Skin lesions are dressed Internal Medicine: Result - Labs CBC & Chem 7: 12/20/16 04:25 12/20/16 04:25 Labs: Short CBC 12/20/16 Range/Units 04:25 WBC 14.4 H (4.3-11.1) K/mcL Hgb 9.2 L (11.5-15.4) g/dL Hct 28.0 L (35.3-44.9) % Plt Count 289 (140-400) K/mcL Neutrophils # 10.2 H (1.6-8.9) K/mcL BMP 12/20/16 04:25 Sodium 139 Potassium 4.8 H Chloride 111 H Carbon Dioxide 24 BUN 23 H Creatinine 0.81 Glucose 167 H Calcium 7.9 L Liver Function 12/20/16 Range/Units 04:25 Total Bilirubin 2.5 H (0.2-1.2) mg/dL Direct Bilirubin 1.7 H (0.0-0.5) mg/dL AST 180 H (5-34) Units/L ALT 79 H (0-55) Units/L Alkaline Phosphatase 410 H (38-126) Units/L Albumin 2.2 L (3.5-5.0) g/dL - ABG Interpretation ABG results: ABG ABG pH 7.49 pH Units (7.32-7.45) H 12/14/16 04:10 ABG pCO2 35 mmHg (35-45) 12/14/16 04:10 ABG pO2 97 mmHg (85-104) 12/14/16 04:10 ABG O2 Saturation 98 % (95-98) 12/14/16 04:10 - VTE Reasons for not Prescribing Prophylaxis: Not indicated-Anticoagulated or INR therapeutic Consult Discharge Plan - Plan Referrals: Carolyn Reardon DO [Partnered Physician] - 12/27/16 9:30 am Monica Chahal, BROOKE [Primary Care Provider] -
--- NOTE | 2016-12-20 11:08 | General Surgery Progress Note ---
Date of Encounter: 12/20/16 Time of Encounter: 11:06 - Assessment and Plan (1) Anemia Current Visit: Yes Status: Acute he patient has had slow decrease in hemoglobin and hematocrit, which has improved today. Hemoglobin is currently 9.2, hematocrit is 28. She states she is feeling much better today. She denies vomiting blood or rectal bleeding, melanotic stools. She notes that she had a bowel movement and it was sent to the lab. Stool occult blood was positive. She states that she did have endoscopic evaluation she was in [place] 2 months ago but she is unaware of those findings. I spoke with her nurse today regarding obtaining these medical records so that we can make further recommendations. She stated that she will contact [place] and try to expedite them sending these for us. At this point she does not appear to be actively bleeding. I would proceed with urgent or repeat colonoscopy only for evidence of active bleeding at this point. Likely anemia of chronic illness that is clinically disclosed with hydration Qualifiers: Anemia type: unspecified type Qualified Code(s): D64.9 - Anemia, unspecified Subjective Patient reports: feels better Narrative: Seen and examined. She states that she is feeling better than yesterday. Her weakness has improved. She denies any abdominal pain. She did have a bowel movement and states that it was sent for testing. She does not recall the color. She does complain that she has increased swelling. I spoke with the nurse who stated [facility] records from her recent endoscopy. Objective Vital Signs - Last 8 Hours Temp Pulse Resp BP Pulse Ox 12/20/16 08:30 98.2 F 74 18 108/62 98 12/20/16 07:07 98.2 F 74 18 108/62 98 12/20/16 04:25 98.3 F 79 18 99/57 100 12/20/16 03:15 73 Intake and Output 12/19/16 12/20/16 12/20/16 23:59 07:59 15:59 Intake Total 720 / 720 200 / 200 240 / 240 Output Total 150 / 150 Balance 720 / 720 50 / 50 240 / 240 Intake: Oral 720 / 720 200 / 200 240 / 240 Output: Urine 150 / 150 Other: Meal Dinner Breakfast Percent of Meal Consumed 80% 100% Weight 143.9 kg Blood Glucose* 181 137 137 Patient Weight 12/20/16 23:59 Weight 143.9 kg - General physical appearance no distress, no pain, chronically ill, obese - Respiratory normal expansion, normal respiratory effort, clear to percussion, clear to auscultation - Cardiovascular Cardiovascular exam: Present: RRR, no murmurs/rubs/gallops - Abdomen Abdomen: Present: bowel sounds present, soft, non tender Additional Comments: obese - Psychiatric oriented to time, oriented to person, oriented to place, speech is normal, memory intact - Additional Exam Anasarca, Bilateral pitting pedal edema, upper extremity edema dressings to the lateral lower extremities - Labs 12/21/16 04:40 12/21/16 04:40 Diabetes panel 12/20/16 Range/Units 04:25 Sodium 139 (136-145) mEq/L Potassium 4.8 H (3.5-4.5) mEq/L Chloride 111 H (98-109) mEq/L Carbon Dioxide 24 (19-29) mEq/L BUN 23 H (7-20) mg/dL Creatinine 0.81 (0.57-1.11) mg/dL Glucose 167 H (70-99) mg/dL Calcium 7.9 L (8.6-10.8) mg/dL AST 180 H (5-34) Units/L ALT 79 H (0-55) Units/L Alkaline Phosphatase 410 H (38-126) Units/L Albumin 2.2 L (3.5-5.0) g/dL Calcium panel 12/20/16 Range/Units 04:25 Calcium 7.9 L (8.6-10.8) mg/dL Albumin 2.2 L (3.5-5.0) g/dL Pituitary panel 12/20/16 Range/Units 04:25 Sodium 139 (136-145) mEq/L Potassium 4.8 H (3.5-4.5) mEq/L Chloride 111 H (98-109) mEq/L Carbon Dioxide 24 (19-29) mEq/L BUN 23 H (7-20) mg/dL Creatinine 0.81 (0.57-1.11) mg/dL Glucose 167 H (70-99) mg/dL Calcium 7.9 L (8.6-10.8) mg/dL Adrenal panel 12/20/16 Range/Units 04:25 Sodium 139 (136-145) mEq/L Potassium 4.8 H (3.5-4.5) mEq/L Chloride 111 H (98-109) mEq/L Carbon Dioxide 24 (19-29) mEq/L BUN 23 H (7-20) mg/dL Creatinine 0.81 (0.57-1.11) mg/dL Glucose 167 H (70-99) mg/dL Calcium 7.9 L (8.6-10.8) mg/dL Total Bilirubin 2.5 H (0.2-1.2) mg/dL AST 180 H (5-34) Units/L ALT 79 H (0-55) Units/L Alkaline Phosphatase 410 H (38-126) Units/L Albumin 2.2 L (3.5-5.0) g/dL - VTE Reasons for not Prescribing Prophylaxis: Not indicated-Anticoagulated or INR therapeutic Consult Discharge Plan - Plan Referrals: Carolyn Reardon DO [Partnered Physician] - 12/27/16 9:30 am Monica Chahal, [employer]MENT REPAIRER [Primary Care Provider] - - Attending Attestation I examined this patient and my medical decision-making was reviewed with the FANCY WIRE DRAWER/PA/Advanced Practice Nurse/Resident Physician. I agree with the documented findings, disposition and treatment plan as described except to the extent set forth below. The patient is seen and evaluated on morning rounds with the resident. The hemoglobin and hematocrit are stable. We will obtain records from her last endoscopic evaluation in [place]. Baljit Meza MD FACS
[2016-12-20] MEDS: Furosemide 40 MG/4 ML VIAL IVP SCH (12:28)
[2016-12-20] MEDS: *HR* Rivaroxaban 10 MG TABLET PO SCH (17:18)
[2016-12-20] MEDS: Insulin DETEMIR 100 UNIT/ML X5UNITS SQ SCH (21:50)
[2016-12-21] MEDS: Hydrocortisone Sodium Succ 100 MG/2 ML VIAL IVP SCH ×4 (00:10→23:56)
[2016-12-21 05:02] LABS: Basophils # 0.1 K/mcL (0.0-0.2); Basophils % 0.5 %; Eosinophils % 0.1 %; Hematocrit 30.2 % (35.3-44.9); Hemoglobin 9.7 g/dL (11.5-15.4); Immature Granulocytes % 6.2 % (0-4); Lymphocytes # 1.8 K/mcL (0.6-4.6); Lymphocytes % 12.1 %; Mean Corpuscular HGB Conc 32.1 g/dL (31.6-35.5); Mean Corpuscular Hemoglobin 27.8 pg (28.0-33.3); Mean Corpuscular Volume 86.5 fL (83.0-100.0); Mean Platelet Volume 10.8 fL (9.4-12.4); Monocytes # 0.9 K/mcL (0.0-1.3); Monocytes % 5.6 %; Neutrophils # 11.4 K/mcL (1.6-8.9); Nucleated Red Blood Cells 0.5 /100 WBC (0); Platelet Count 315 K/mcL (140-400); Red Blood Count 3.49 M/mcL (3.82-4.97); Red Cell Distribution Width 16.5 % (11.5-14.5); Segmented Neutrophils % 75.5 %
[2016-12-21 05:27] LABS: Alanine Aminotransferase 148 Units/L (0-55); Albumin 2.2 g/dL (3.5-5.0); Albumin/Globulin Ratio 0.8 (1.1-2.2); Alkaline Phosphatase 409 Units/L (38-126); Aspartate Amino Transferase 250 Units/L (5-34); BUN/Creatinine Ratio 36 (6-26); Bilirubin,Total 2.5 mg/dL (0.2-1.2); Blood Urea Nitrogen 31 mg/dL (7-20); Carbon Dioxide 26 mEq/L (19-29); Chloride 109 mEq/L (98-109); Globulin 2.9 g/dL (2.4-3.5); Glucose 167 mg/dL (70-99); Osmolality,Calculated 298 (280-300); Potassium 4.3 mEq/L (3.5-4.5); Sodium 139 mEq/L (136-145); Total Protein 5.1 g/dL (6.0-8.3); eGFR For African Americans > 60 (> 60); eGFR For Non-African Americans > 60 (> 60)
[2016-12-21 05:43] LABS: Anisocytosis 1+ (Not Present); Poikilocytosis 1+ (Not Present); Target Cells 1+ (Not Present)
[2016-12-21 05:44] LABS: Platelet Estimate Normal (Normal)
[2016-12-21] MEDS: Magnesium Oxide 400 MG TABLET PO SCH ×2 (08:24→21:48)
[2016-12-21] MEDS: *HR* Amiodarone 200 MG TABLET PO SCH ×2 (08:25→21:48)
[2016-12-21] MEDS: Insulin LISPRO 300 UNITS/3 ML VIAL SQ SCH ×7 (08:25→22:06)
[2016-12-21] MEDS: Furosemide 40 MG/4 ML VIAL IVP SCH (08:25)
[2016-12-21] MEDS: Lactobacillus 1 EACH CAP.SPRINK PO SCH ×2 (08:25→21:48)
[2016-12-21] MEDS: Fluconazole 100 MG TABLET PO SCH (08:25)
[2016-12-21] MEDS: Sennosides/Docusate Sodium TABLET PO SCH (08:36)
[2016-12-21] MEDS: Nystatin POWDER 30 GM BOTTLE TP SCH ×2 (08:36→22:06)
[2016-12-21] MEDS: Miconazole 2% ointment 114 GM TUBE TP SCH (08:36)
[2016-12-21] MEDS ORDERED: Sennosides/Docusate Sodium TABLET PO PRN (15:33)
[2016-12-21] MEDS: *HR* Rivaroxaban 10 MG TABLET PO SCH (16:53)
--- NOTE | 2016-12-21 18:25 | Internal Med Progress Note ---
Date of Encounter: 12/21/16 Time of Encounter: 10:00 - Assessment and plan (1) Sepsis Current Visit: Yes Status: Acute Assessment and plan: resolved. Suspected source is UTI slowly improving. urine culture grew sandro. completed fluconazole therapy. will remove go catheter. close monitor Qualifiers: Sepsis type: sepsis due to unspecified organism Qualified Code(s): A41.9 - Sepsis, unspecified organism (2) UTI (urinary tract infection) Current Visit: Yes Status: Acute Assessment and plan: As above Qualifiers: Urinary tract infection type: site unspecified Hematuria presence: without hematuria Qualified Code(s): N39.0 - Urinary tract infection, site not specified (3) Adrenal insufficiency Current Visit: Yes Status: Acute Assessment and plan: Continue hydrocortisone for total of 3 days, monitor FS and blood pressure PPI for GI prophylaxis (4) Anemia Current Visit: Yes Status: Acute Assessment and plan: Hgb is 9.7. Appreciate surgery input. Patient's anemia work up for iron/Vit B12 or folate deficiency negative She has bilirubinemia, LDH WNL, hapoglobin ordered pending Qualifiers: Anemia type: unspecified type Qualified Code(s): D64.9 - Anemia, unspecified (5) Atrial fibrillation with RVR Current Visit: Yes Status: Resolved Assessment and plan: hr is controlled. Continue amiodarone (6) CHF (congestive heart failure) Current Visit: Yes Status: Chronic Assessment and plan: Patient with generalized edema However, CXR shows no evidence of CHF. Echo from July 2016 showed EF preserved 60%, mild diastolic dysfunction, mild to moderate MR, no pulmonary hypertension. BNP noted to be only 334. Continue to monitor respiratory status ECHO noted for EF 65% with only mild diastolic dysfunction. continue IV lasix today Qualifiers: Congestive heart failure type: diastolic Congestive heart failure chronicity: chronic Qualified Code(s): I50.32 - Chronic diastolic (congestive ) heart failure (7) Chronic anticoagulation Current Visit: Yes Status: Chronic Assessment and plan: H/H continues to slowly drop FOBT positive Surgery eval noted, no intervention Hb is stable Restart Xarelto (8) Decubitus ulcer Current Visit: Yes Status: Chronic Assessment and plan: Present on admission Continue wound dressing Qualifiers: Pressure ulcer location: buttock Pressure ulcer stage: stage 2 Laterality : unspecified laterality Qualified Code(s): L89.302 - Pressure ulcer of unspecified buttock, stage 2 (9) Hypoglycemia associated with diabetes Current Visit: Yes Status: Resolved Assessment and plan: Improved Sliding scale insulin and levemir FS have improved (10) Hypokalemia Current Visit: Yes Status: Resolved Assessment and plan: Improved (11) Hypomagnesemia Current Visit: Yes Status: Resolved Assessment and plan: Mag WNL (12) Lactic acidosis Current Visit: Yes Status: Resolved Assessment and plan: Resolved Secondary to hypoperfusion and Afib with RVR (13) Morbid obesity Current Visit: No Status: Chronic Qualifiers: Obesity type: due to excess calories Qualified Code(s): E66.01 - Morbid ( severe) obesity due to excess calories - Subjective Interval history: patient became very tearful and reports that 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 - Constitutional Vitals: Temp Pulse Resp BP Pulse Ox 98 F 88 18 121/75 98 12/21/16 16:56 12/21/16 17:00 12/21/16 16:56 12/21/16 16:56 12/21/16 16:56 General appearance: Present: cooperative, A&O X 3, morbidly obese, pleasant, no acute distress, answers questions appropriately - Respiratory Respiratory exam: Present: CTAB - Cardiovascular Cardiovascular exam: Present: RRR - GI/Abdominal GI/Abdominal exam: Present: normal bowel sounds, soft. Absent: distended, tenderness - Extremities Exam Extremities exam: Present: pedal edema - Back Exam Back exam: Absent: CVA tenderness (L), CVA tenderness (R) - Neurological Exam Neurological exam: Present: alert, oriented X3, no focal deficits, strengths equal and symetr throughout. Absent: facial droop, speech deficit Internal Medicine: Result - Labs CBC & Chem 7: 12/21/16 04:40 12/21/16 04:40 Labs: Short CBC 12/21/16 Range/Units 04:40 WBC 15.1 H (4.3-11.1) K/mcL Hgb 9.7 L (11.5-15.4) g/dL Hct 30.2 L (35.3-44.9) % Plt Count 315 (140-400) K/mcL Neutrophils # 11.4 H (1.6-8.9) K/mcL BMP 12/21/16 04:40 Sodium 139 Potassium 4.3 Chloride 109 Carbon Dioxide 26 BUN 31 H Creatinine 0.86 Glucose 167 H Calcium 8.0 L Liver Function 12/21/16 Range/Units 04:40 Total Bilirubin 2.5 H (0.2-1.2) mg/dL AST 250 H (5-34) Units/L ALT 148 H (0-55) Units/L Alkaline Phosphatase 409 H (38-126) Units/L Albumin 2.2 L (3.5-5.0) g/dL - ABG Interpretation ABG results: ABG ABG pH 7.49 pH Units (7.32-7.45) H 12/14/16 04:10 ABG pCO2 35 mmHg (35-45) 12/14/16 04:10 ABG pO2 97 mmHg (85-104) 12/14/16 04:10 ABG O2 Saturation 98 % (95-98) 12/14/16 04:10 - VTE Reasons for not Prescribing Prophylaxis: Not indicated-Anticoagulated or INR therapeutic Consult Discharge Plan - Plan Referrals: Carolyn Reardon DO [Partnered Physician] - 12/27/16 9:30 am Moniac Chahal, BROOKE [Primary Care Provider] -
[2016-12-21] MEDS ORDERED: *HR* LORazepam 0.5 MG TABLET PO ONE (19:54)
[2016-12-21] MEDS: Insulin DETEMIR 100 UNIT/ML X5UNITS SQ SCH (21:53)
[2016-12-22 05:02] LABS: Hematocrit 30.9 % (35.3-44.9); Hemoglobin 9.8 g/dL (11.5-15.4); Mean Corpuscular HGB Conc 31.7 g/dL (31.6-35.5); Mean Corpuscular Hemoglobin 27.8 pg (28.0-33.3); Mean Corpuscular Volume 87.8 fL (83.0-100.0); Mean Platelet Volume 10.3 fL (9.4-12.4); Nucleated Red Blood Cells 0.4 /100 WBC (0); Platelet Count 331 K/mcL (140-400); Red Blood Count 3.52 M/mcL (3.82-4.97); Red Cell Distribution Width 16.6 % (11.5-14.5)
[2016-12-22 05:16] LABS: Alanine Aminotransferase 228 Units/L (0-55); Albumin 2.3 g/dL (3.5-5.0); Albumin/Globulin Ratio 0.8 (1.1-2.2); Alkaline Phosphatase 381 Units/L (38-126); Aspartate Amino Transferase 307 Units/L (5-34); BUN/Creatinine Ratio 44 (6-26); Bilirubin,Total 2.2 mg/dL (0.2-1.2); Blood Urea Nitrogen 38 mg/dL (7-20); Calcium 8.1 mg/dL (8.6-10.8); Carbon Dioxide 27 mEq/L (19-29); Chloride 108 mEq/L (98-109); Globulin 2.8 g/dL (2.4-3.5); Glucose 131 mg/dL (70-99); Osmolality,Calculated 301 (280-300); Potassium 4.3 mEq/L (3.5-4.5); Sodium 140 mEq/L (136-145); Total Protein 5.1 g/dL (6.0-8.3); eGFR For African Americans > 60 (> 60); eGFR For Non-African Americans > 60 (> 60)
[2016-12-22 05:47] LABS: Lymphocytes # 2.9 K/mcL (0.6-4.6); Monocytes # 0.6 K/mcL (0.0-1.3); Neutrophils # 12.4 K/mcL (1.6-8.9); Platelet Estimate Normal (Normal)
[2016-12-22 05:48] LABS: Basophilic Stippling 1+ (Not Present); Poikilocytosis 1+ (Not Present); Polychromasia 1+ (Not Present); Target Cells 1+ (Not Present)
[2016-12-22] MEDS: Lactobacillus 1 EACH CAP.SPRINK PO SCH (09:24)
[2016-12-22] MEDS: *HR* Amiodarone 200 MG TABLET PO SCH ×2 (09:25→22:00)
[2016-12-22] MEDS: Furosemide 40 MG/4 ML VIAL IVP SCH (09:25)
[2016-12-22] MEDS: Hydrocortisone Sodium Succ 100 MG/2 ML VIAL IVP SCH (09:26)
[2016-12-22] MEDS: Magnesium Oxide 400 MG TABLET PO SCH ×2 (09:28→22:00)
[2016-12-22] MEDS: Miconazole 2% ointment 114 GM TUBE TP SCH (09:42)
[2016-12-22] MEDS: Nystatin POWDER 30 GM BOTTLE TP SCH ×2 (09:42→22:00)
[2016-12-22] MEDS: Insulin LISPRO 300 UNITS/3 ML VIAL SQ SCH ×7 (09:54→22:00)
[2016-12-22] MEDS ORDERED: Hydrocortisone Sodium Succ 100 MG/2 ML VIAL IVP ONE (16:30)
[2016-12-22] MEDS: *HR* Rivaroxaban 10 MG TABLET PO SCH (17:32)
--- NOTE | 2016-12-22 21:33 | Internal Med Progress Note ---
Date of Encounter: 12/22/16 Time of Encounter: 14:45 - Assessment and plan (1) Elevated liver enzymes Current Visit: Yes Status: Acute Assessment and plan: Alk phos 381. ALT 228. AST 307. TB 2.2. Trending up since 12/19. Patient had normal liver enzymes levels in October 2016. CT abdomen and pelvis in November 04, 2016 shows hepatic steatosis. repeat LFTs in the morning. Only medication that could cause is amiodarone. (2) Adrenal insufficiency Current Visit: Yes Status: Acute Assessment and plan: very low cortisol level at 5.3. change IV hydrocortisone to bid for today and tomorrow start oral hydrocortisone 20mg in am and 10 mg in pm. PPI for GI prophylaxis (3) Sepsis Current Visit: Yes Status: Acute Assessment and plan: resolved. Suspected source is UTI slowly improving. urine culture grew sandro. completed fluconazole therapy. will remove go catheter. close monitor Qualifiers: Sepsis type: sepsis due to unspecified organism Qualified Code(s): A41.9 - Sepsis, unspecified organism (4) UTI (urinary tract infection) Current Visit: Yes Status: Acute Assessment and plan: As above Qualifiers: Urinary tract infection type: site unspecified Hematuria presence: without hematuria Qualified Code(s): N39.0 - Urinary tract infection, site not specified (5) Anemia Current Visit: Yes Status: Acute Assessment and plan: Hgb is 9.7. Appreciate surgery input. Patient's anemia work up for iron/Vit B12 or folate deficiency negative She has bilirubinemia, LDH WNL, hapoglobin ordered pending Qualifiers: Anemia type: unspecified type Qualified Code(s): D64.9 - Anemia, unspecified (6) Atrial fibrillation with RVR Current Visit: Yes Status: Resolved Assessment and plan: HR is controlled. Continue amiodarone (7) CHF (congestive heart failure) Current Visit: Yes Status: Chronic Assessment and plan: Patient with generalized edema However, CXR shows no evidence of CHF. Echo from July 2016 showed EF preserved 60%, mild diastolic dysfunction, mild to moderate MR, no pulmonary hypertension. BNP noted to be only 334. Continue to monitor respiratory status ECHO noted for EF 65% with only mild diastolic dysfunction. continue IV lasix today Qualifiers: Congestive heart failure type: diastolic Congestive heart failure chronicity: chronic Qualified Code(s): I50.32 - Chronic diastolic (congestive ) heart failure (8) Chronic anticoagulation Current Visit: Yes Status: Chronic Assessment and plan: H/H continues to slowly drop FOBT positive Surgery eval noted, no intervention Hb is stable Restart Xarelto (9) Decubitus ulcer Current Visit: Yes Status: Chronic Assessment and plan: Present on admission Continue wound dressing Qualifiers: Pressure ulcer location: buttock Pressure ulcer stage: stage 2 Laterality : unspecified laterality Qualified Code(s): L89.302 - Pressure ulcer of unspecified buttock, stage 2 (10) Hypoglycemia associated with diabetes Current Visit: Yes Status: Resolved Assessment and plan: Improved Sliding scale insulin and levemir FS have improved (11) Hypokalemia Current Visit: Yes Status: Resolved Assessment and plan: Improved (12) Hypomagnesemia Current Visit: Yes Status: Resolved Assessment and plan: Mag WNL (13) Lactic acidosis Current Visit: Yes Status: Resolved Assessment and plan: Resolved Secondary to hypoperfusion and Afib with RVR (14) Morbid obesity Current Visit: No Status: Chronic Qualifiers: Obesity type: due to excess calories Qualified Code(s): E66.01 - Morbid ( severe) obesity due to excess calories - Subjective Interval history: patient reports no dizziness, no fever, no abdominal pain, no chest pain, no shortness of breath. - Constitutional Vitals: Temp Pulse Resp BP Pulse Ox 98.3 F 80 15 127/71 98 12/22/16 19:45 12/22/16 19:45 12/22/16 19:45 12/22/16 19:45 12/22/16 19:45 General appearance: Present: cooperative, A&O X 3, morbidly obese, pleasant, no acute distress, answers questions appropriately - Respiratory Respiratory exam: Present: decreased breath sounds (at lugn bases) - Cardiovascular Cardiovascular exam: Present: distant heart sounds, RRR - GI/Abdominal GI/Abdominal exam: Present: soft. Absent: distended, tenderness - Extremities Exam Extremities exam: Present: pedal edema - Neurological Exam Neurological exam: Present: alert, oriented X3, no focal deficits, strengths equal and symetr throughout. Absent: facial droop, speech deficit - Skin Skin exam: Absent: rash Internal Medicine: Result - Labs CBC & Chem 7: 12/22/16 04:45 12/22/16 04:45 Labs: Short CBC 12/22/16 Range/Units 04:45 WBC 15.9 H (4.3-11.1) K/mcL Hgb 9.8 L (11.5-15.4) g/dL Hct 30.9 L (35.3-44.9) % Plt Count 331 (140-400) K/mcL Neutrophils # 12.4 H (1.6-8.9) K/mcL BMP 12/22/16 04:45 Sodium 140 Potassium 4.3 Chloride 108 Carbon Dioxide 27 BUN 38 H Creatinine 0.87 Glucose 131 H Calcium 8.1 L Liver Function 12/22/16 Range/Units 04:45 Total Bilirubin 2.2 H (0.2-1.2) mg/dL AST 307 H (5-34) Units/L ALT 228 H (0-55) Units/L Alkaline Phosphatase 381 H (38-126) Units/L Albumin 2.3 L (3.5-5.0) g/dL - ABG Interpretation ABG results: ABG ABG pH 7.49 pH Units (7.32-7.45) H 12/14/16 04:10 ABG pCO2 35 mmHg (35-45) 12/14/16 04:10 ABG pO2 97 mmHg (85-104) 12/14/16 04:10 ABG O2 Saturation 98 % (95-98) 12/14/16 04:10 - VTE Reasons for not Prescribing Prophylaxis: Not indicated-Anticoagulated or INR therapeutic Consult Discharge Plan - Plan Referrals: Carolyn Reardon DO [Partnered Physician] - 12/31/16 1:45 am (Appt. With Nurse Practitioner Aissatou ) Monica Chahal, [employer] [Primary Care Provider] -
[2016-12-22] MEDS: Insulin DETEMIR 100 UNIT/ML X5UNITS SQ SCH (22:00)
[2016-12-23 05:22] LABS: Basophils % 0.2 %; Hematocrit 30.5 % (35.3-44.9); Hemoglobin 9.9 g/dL (11.5-15.4); Immature Granulocytes % 2.6 % (0-4); Lymphocytes # 1.6 K/mcL (0.6-4.6); Lymphocytes % 6.8 %; Mean Corpuscular HGB Conc 32.5 g/dL (31.6-35.5); Mean Corpuscular Hemoglobin 28.7 pg (28.0-33.3); Mean Corpuscular Volume 88.4 fL (83.0-100.0); Mean Platelet Volume 10.7 fL (9.4-12.4); Monocytes # 0.5 K/mcL (0.0-1.3); Monocytes % 2.1 %; Neutrophils # 20.8 K/mcL (1.6-8.9); Nucleated Red Blood Cells 0.1 /100 WBC (0); Platelet Count 311 K/mcL (140-400); Red Blood Count 3.45 M/mcL (3.82-4.97); Red Cell Distribution Width 16.7 % (11.5-14.5); Segmented Neutrophils % 88.3 %
[2016-12-23 05:38] LABS: Alanine Aminotransferase 308 Units/L (0-55); Albumin 2.1 g/dL (3.5-5.0); Albumin/Globulin Ratio 0.7 (1.1-2.2); Alkaline Phosphatase 346 Units/L (38-126); Aspartate Amino Transferase 350 Units/L (5-34); BUN/Creatinine Ratio 42 (6-26); Bilirubin,Direct 1.7 mg/dL (0.0-0.5); Bilirubin,Indirect 0.6 mg/dL (0.0-1.2); Bilirubin,Total 2.3 mg/dL (0.2-1.2); Blood Urea Nitrogen 36 mg/dL (7-20); Carbon Dioxide 25 mEq/L (19-29); Chloride 106 mEq/L (98-109); Globulin 2.9 g/dL (2.4-3.5); Glucose 185 mg/dL (70-99); Lactate Dehydrogenase 311 Units/L (159-327); Magnesium 1.7 mg/dL (1.6-2.6); Osmolality,Calculated 305 (280-300); Phosphorous 2.9 mg/dL (2.3-4.7); Potassium 3.6 mEq/L (3.5-4.5); Sodium 141 mEq/L (136-145); eGFR For African Americans > 60 (> 60); eGFR For Non-African Americans > 60 (> 60)
[2016-12-23 05:43] LABS: Thyroid Stimulating Hormone 2.831 mcIU/mL (0.350-4.840)
[2016-12-23 06:42] LABS: Gamma Glutamyl Transpeptidase 1711 Units/L (9-36)
[2016-12-23] MEDS: *HR* Amiodarone 200 MG TABLET PO SCH (08:16)
[2016-12-23] MEDS: Magnesium Oxide 400 MG TABLET PO SCH ×2 (09:07→20:47)
[2016-12-23] MEDS: Hydrocortisone 10 MG TABLET PO SCH ×2 (09:08→14:58)
[2016-12-23] MEDS: Furosemide 40 MG/4 ML VIAL IVP SCH ×2 (09:08→18:27)
[2016-12-23] MEDS: Nystatin POWDER 30 GM BOTTLE TP SCH ×2 (09:09→22:39)
[2016-12-23] MEDS: Miconazole 2% ointment 114 GM TUBE TP SCH (09:10)
[2016-12-23] MEDS: Lactobacillus 1 EACH CAP.SPRINK PO SCH (09:10)
[2016-12-23] MEDS: Insulin LISPRO 300 UNITS/3 ML VIAL SQ SCH ×7 (09:11→20:48)
--- NOTE | 2016-12-23 10:08 | General Surgery Progress Note ---
Date of Encounter: 12/23/16 Time of Encounter: 10:02 - Assessment and Plan (1) Anemia Current Visit: Yes Status: Acute he patient has had slow decrease in hemoglobin and hematocrit, which has improved over the last few days. Hemoglobin is currently 9.9, hematocrit is 30.5. H/H remain stable. EGD results from [facility] on 11/04/16 have been received today. The record states that biopsies were obtained from upper third of the esophagus, antrum of the stomach, and second portion of the duodenum. Pathology results were not sent. Patchy mildly erythematous mucosa without bleeding was found in the gastric antrum. The esophagus and second portion of the duodenum appeared normal. Her anemia appears to be chronic, her hemoglobin and hematocrit has remained stable. Surgery recommends the patient follow-up as an outpatient. There is no current indication for repeat EGD during this hospitalization unless she becomes hemodynamically unstable or has a large drop in her H/H. Surgery will sign off at this point. Please re-consult as needed Qualifiers: Anemia type: unspecified type Qualified Code(s): D64.9 - Anemia, unspecified Subjective Patient reports: feels better Narrative: Patient seen and examined. She states she is feeling much better and denies complaints. Objective Vital Signs - Last 8 Hours Temp Pulse Resp BP Pulse Ox 12/23/16 09:00 81 12/23/16 07:51 97.6 F 78 16 119/75 100 Intake and Output 12/22/16 12/23/16 12/23/16 23:59 07:59 15:59 Intake Total 510 / 510 150 / 150 Output Total 400 / 400 250 / 250 Balance 510 / 510 -250 / -250 -250 / -250 Intake: Oral 510 / 510 150 / 150 Output: Urine 0 / 0 Catheter 400 / 400 250 / 250 Other: Meal turkey sandwich, goldfish crackers Breakfast Percent of Meal Consumed 100% 90% # Voids 1 Blood Glucose* 145 136 - General physical appearance no distress, moderate pain, chronically ill, obese - Eyes normal ocular movement - ENT atraumatic, normocephalic - Neck Neck exam: trachea midline - Respiratory normal expansion, normal respiratory effort, clear to auscultation - Cardiovascular Cardiovascular exam: Present: RRR - Abdomen Abdomen: Present: bowel sounds present, soft. Absent: distended Abdominal Tenderness: suprapubic - Psychiatric oriented to time, oriented to person, oriented to place, speech is normal, memory intact - Labs 12/24/16 03:33 12/24/16 03:33 Diabetes panel 12/23/16 Range/Units 04:20 Sodium 141 (136-145) mEq/L Potassium 3.6 (3.5-4.5) mEq/L Chloride 106 (98-109) mEq/L Carbon Dioxide 25 (19-29) mEq/L BUN 36 H (7-20) mg/dL Creatinine 0.85 (0.57-1.11) mg/dL Glucose 185 H (70-99) mg/dL Calcium 8.0 L (8.6-10.8) mg/dL AST 350 H (5-34) Units/L ALT 308 H (0-55) Units/L Alkaline Phosphatase 346 H (38-126) Units/L Albumin 2.1 L (3.5-5.0) g/dL Thyroid panel 12/23/16 Range/Units 04:20 TSH 2.831 (0.350-4.840) mcIU/mL Calcium panel 12/23/16 Range/Units 04:20 Calcium 8.0 L (8.6-10.8) mg/dL Phosphorus 2.9 (2.3-4.7) mg/dL Albumin 2.1 L (3.5-5.0) g/dL Pituitary panel 12/23/16 Range/Units 04:20 Sodium 141 (136-145) mEq/L Potassium 3.6 (3.5-4.5) mEq/L Chloride 106 (98-109) mEq/L Carbon Dioxide 25 (19-29) mEq/L BUN 36 H (7-20) mg/dL Creatinine 0.85 (0.57-1.11) mg/dL Glucose 185 H (70-99) mg/dL Calcium 8.0 L (8.6-10.8) mg/dL TSH 2.831 (0.350-4.840) mcIU/mL Adrenal panel 12/23/16 Range/Units 04:20 Sodium 141 (136-145) mEq/L Potassium 3.6 (3.5-4.5) mEq/L Chloride 106 (98-109) mEq/L Carbon Dioxide 25 (19-29) mEq/L BUN 36 H (7-20) mg/dL Creatinine 0.85 (0.57-1.11) mg/dL Glucose 185 H (70-99) mg/dL Calcium 8.0 L (8.6-10.8) mg/dL Total Bilirubin 2.3 H (0.2-1.2) mg/dL AST 350 H (5-34) Units/L ALT 308 H (0-55) Units/L Alkaline Phosphatase 346 H (38-126) Units/L Albumin 2.1 L (3.5-5.0) g/dL - VTE Reasons for not Prescribing Prophylaxis: Not indicated-Anticoagulated or INR therapeutic Documentation of Mechanical Device: Intermittent pneumatic compression device Consult Discharge Plan - Plan Referrals: Carolyn Reardon DO [Partnered Physician] - 12/31/16 1:45 am (Appt. With Nurse Practitioner Aissatou ) Sivakumar Sheridan MD [Partnered Physician] - 01/14/17 10:45 am Monica Chahal CNP [Primary Care Provider] - - Attending Attestation I examined this patient and my medical decision-making was reviewed with the HR REPRESENTATIVE/PA/Advanced Practice Nurse/Resident Physician. I agree with the documented findings, disposition and treatment plan as described except to the extent set forth below. The patient is seen and evaluated on morning rounds. Her hemoglobin and hematocrit are stable rising. I can follow her as an outpatient to see if further endoscopic evaluation of the gastrointestinal tract is indicated. Baljit Hutton MD FACS
--- NOTE | 2016-12-23 14:33 | Cardiology Progress Note ---
Date of Encounter: 12/23/16 Time of Encounter: 14:30 Assessment and Plan (1) Atrial fibrillation with RVR Current Visit: Yes Status: Resolved Per Cardiology: Noted to have brief PAF during last hospital stay September 2016 managed with BB and CCB (xarelto). Was A. fib with RVR this admission in setting of sepsis. Started on amiodarone, as pt was hypotensive. IV amiodarone transitioned to PO 200mg BID. Now maintaining SR. QTc remains <500ms. Cardiology reconsulted d/t liver enzymes trending upward. Discussed with Dr. Sivakumar Sheridan. Decrease amiodarone to 200 mg daily. Not on cardizem or BB due to hypotension initially. B/p improved. Add low dose bb and titrate as needed. If liver enzymes continue to increase significantly stop amiodarone and increase bb. Regarding long-term anticoagulation, on Xarelto 20 mg PO daily. Continue Xarelto. Echo EF preserved. Cardiology signing off. Out patient f/u will be scheduled. (2) CAD (coronary artery disease) Current Visit: No Status: Chronic Per Cardiology: History of CAD with last heart catheterization October 04, 2016 which showed mid LAD 30%, mid circumflex 40%, patent OM 2 stent, mid RCA 30% stenosis. Troponin negative. On aspirin. restart bb. Not on statin due to history of myalgias. Stopped ASA with downtrending H&H with blood noted in go and evidence of epistaxis. Restart asa once stable. Qualifiers: Coronary Disease-Associated Artery/Lesion type: [place] artery [place] vs. transplanted heart: [place] heart Associated angina: angina presence unspecified Qualified Code(s): I25.10 - Atherosclerotic heart disease of [place] coronary artery without angina pectoris Discussion w patient/family: The assessment and plan as outlined above was discussed with the patient and/or family members who expressed understanding and agreement. All questions were answered. Thank you for involving us in the care of your patient. Please call with any questions. Subjective Principal diagnosis: Afib RVR Interval history: Cardiology re-consulted d/t liver enzymes increasing while on amiodarone. Started on amiodarone 12/16/16 for afib with RVR in the setting of sepsis and hypotension. BB and cardizem was discontinued. Currently remains in NSR. Objective Vital Signs, Last 4 Hours Temp Pulse Resp BP Pulse Ox 05/11/17 13:00 90 12/23/16 11:55 97.8 F 90 16 129/67 98 General: Conversant, No Apparent Distress, Other (Morbidly obese female. ) HEENT: Atraumatic, Normocephaly, Mucus Membranes Moist Neck: No JVD, Normal carotid pulses Cardiac: Reg Rate and Rhythm, Normal S1 and S2, No Murmur Lungs: Normal Breath Sounds, No Wheeze, Rales, Rhonchi Neuro: Alert and responsive, No focal deficits noted Abdomen: Soft, Non-Tender Musculoskeletal: No Chest Wall Tenderness Extremities: No Clubbing, No Cyanosis, Normal Pulses, Other (2+ BLE edema up to thighs. BLE selene wraps in place. RLE with redness. ) Results 12/23/16 04:20 12/23/16 04:20 Lab Results 12/23/16 12/23/16 04:20 04:20 WBC 23.6 H Hgb 9.9 L Hct 30.5 L Plt Count 311 Sodium 141 Potassium 3.6 Chloride 106 Carbon Dioxide 25 BUN 36 H Creatinine 0.85 Glucose 185 H Calcium 8.0 L Magnesium 1.7 Total Bilirubin 2.3 H AST 350 H ALT 308 H Alkaline Phosphatase 346 H TSH 2.831 - VTE Reasons for not Prescribing Prophylaxis: Not indicated-Anticoagulated or INR therapeutic Documentation of Mechanical Device: Intermittent pneumatic compression device Consult Discharge Plan - Plan Referrals: Carolyn Reardon DO [Partnered Physician] - 12/31/16 1:45 am (Appt. With Nurse Practitioner Aissatou ) Sivakumar Sheridan MD [Partnered Physician] - 01/14/17 10:45 am Monica Chahal CNP [Primary Care Provider] -
[2016-12-23] MEDS: Doxycycline 100 MG CAPSULE PO SCH ×2 (14:58→20:47)
[2016-12-23 15:25] LABS: Albumin 2.2 g/dL (3.5-5.0); Albumin/Globulin Ratio 0.7 (1.1-2.2); Bilirubin,Direct 1.9 mg/dL (0.0-0.5); Bilirubin,Indirect 0.9 mg/dL (0.0-1.2); Bilirubin,Total 2.8 mg/dL (0.2-1.2); Total Protein 5.2 g/dL (6.0-8.3)
[2016-12-23] MEDS: *HR* Rivaroxaban 10 MG TABLET PO SCH (18:21)
--- NOTE | 2016-12-23 18:52 | Internal Med Progress Note ---
Date of Encounter: 12/23/16 Time of Encounter: 12:00 - Assessment and plan (1) Elevated liver enzymes Current Visit: Yes Status: Acute Assessment and plan: could be secondary to VELASQUEZ. Alk phos 381. ALT 228. AST 307. TB 2.2. Trending up since 12/19. Fluconazole was stopped 12/21. Patient had normal liver enzymes levels in October 2016. CT abdomen and pelvis in November 04, [address] abdomen and pelvis revealed marked fatty infiltration of liver, moderate stool in colon, no bowel obstruction, nonspecific injection of the fat in the anterior abdominal wall. persistent elevation of LFTs. will stop amiodarone. Increase IV Lasix to twice a day. Close monitoring of liver enzymes. (2) Acute respiratory failure with hypoxia Current Visit: Yes Status: Acute Assessment and plan: Secondary to acute bronchitis. Patient requiring [address] of the chest revealed mild bronchial wall thickening consistent with some acute bronchitis. start Doxycycline and nebulizations. (3) Adrenal insufficiency Current Visit: Yes Status: Acute Assessment and plan: very low cortisol level at 5.3. PAtient required IV hydrocortisone until 12/22. continue oral hydrocortisone 20mg in am and 10 mg in pm. PPI for GI prophylaxis (4) Sepsis Current Visit: Yes Status: Acute Assessment and plan: resolved. Suspected source is UTI slowly improving. urine culture grew sandro. completed fluconazole therapy. will remove go catheter. close monitor Qualifiers: Sepsis type: sepsis due to unspecified organism Qualified Code(s): A41.9 - Sepsis, unspecified organism (5) UTI (urinary tract infection) Current Visit: Yes Status: Acute Assessment and plan: As above Qualifiers: Urinary tract infection type: site unspecified Hematuria presence: without hematuria Qualified Code(s): N39.0 - Urinary tract infection, site not specified (6) Anemia Current Visit: Yes Status: Acute Assessment and plan: Hgb is 9.9. Appreciate surgery input. Patient's anemia work up for iron/Vit B12 or folate deficiency negative She has bilirubinemia, LDH WNL, hapoglobin ordered pending Qualifiers: Anemia type: unspecified type Qualified Code(s): D64.9 - Anemia, unspecified (7) Atrial fibrillation with RVR Current Visit: Yes Status: Resolved Assessment and plan: HR is controlled. appreciate cardiology input. start metoprolol. decrease amiodaron given elevated LFTs. (8) CHF (congestive heart failure) Current Visit: Yes Status: Chronic Assessment and plan: secondary to diastolic heart failure. LE edema likely from hypoalbuminemia. ECHO noted for EF 65% with only mild diastolic dysfunction. Echo from July 2016 showed EF preserved 60%, mild diastolic dysfunction, mild to moderate MR, no pulmonary hypertension. BNP noted to be only 334. increase IV lasix bid. close monitor. Qualifiers: Congestive heart failure type: diastolic Congestive heart failure chronicity: chronic Qualified Code(s): I50.32 - Chronic diastolic (congestive ) heart failure (9) Chronic anticoagulation Current Visit: Yes Status: Chronic Assessment and plan: H/H at 9.9. FOBT positive Surgery eval noted, no intervention Hb is stable continue Xarelto (10) Decubitus ulcer Current Visit: Yes Status: Chronic Assessment and plan: Present on admission Continue wound dressing Qualifiers: Pressure ulcer location: buttock Pressure ulcer stage: stage 2 Laterality : unspecified laterality Qualified Code(s): L89.302 - Pressure ulcer of unspecified buttock, stage 2 (11) Hypoglycemia associated with diabetes Current Visit: Yes Status: Resolved Assessment and plan: resolved. Sliding scale insulin and levemir FS have improved (12) Hypokalemia Current Visit: Yes Status: Resolved Assessment and plan: Improved (13) Hypomagnesemia Current Visit: Yes Status: Resolved Assessment and plan: Mag WNL (14) Lactic acidosis Current Visit: Yes Status: Resolved Assessment and plan: Resolved Secondary to hypoperfusion and Afib with RVR (15) Morbid obesity Current Visit: No Status: Chronic Assessment and plan: bmi 58. Qualifiers: Obesity type: due to excess calories Qualified Code(s): E66.01 - Morbid ( severe) obesity due to excess calories - Subjective Interval history: patient reports mild nausea. no abdominal pain. - Constitutional Vitals: Temp Pulse Resp BP Pulse Ox 98 F 92 16 132/71 99 12/23/16 15:33 12/23/16 17:00 12/23/16 15:33 12/23/16 15:33 12/23/16 15:33 General appearance: Present: cooperative, A&O X 3, morbidly obese, pleasant, no acute distress, answers questions appropriately - Respiratory Respiratory exam: Present: rhonchi - Cardiovascular Cardiovascular exam: Present: RRR - GI/Abdominal GI/Abdominal exam: Present: normal bowel sounds, soft. Absent: distended, tenderness - Extremities Exam Extremities exam: Present: pedal edema (2+ LE edema) - Neurological Exam Neurological exam: Present: alert. Absent: facial droop, speech deficit Internal Medicine: Result - Labs CBC & Chem 7: 12/23/16 04:20 12/23/16 04:20 Labs: Short CBC 12/23/16 Range/Units 04:20 WBC 23.6 H (4.3-11.1) K/mcL Hgb 9.9 L (11.5-15.4) g/dL Hct 30.5 L (35.3-44.9) % Plt Count 311 (140-400) K/mcL Neutrophils # 20.8 H (1.6-8.9) K/mcL BMP 12/23/16 04:20 Sodium 141 Potassium 3.6 Chloride 106 Carbon Dioxide 25 BUN 36 H Creatinine 0.85 Glucose 185 H Calcium 8.0 L Liver Function 12/23/16 12/23/16 Range/Units 04:20 15:05 Total Bilirubin 2.3 H 2.8 H (0.2-1.2) mg/dL Direct Bilirubin 1.7 H 1.9 H (0.0-0.5) mg/dL GGT 1711 H (9-36) Units/L AST 350 H 389 H (5-34) Units/L ALT 308 H 358 H (0-55) Units/L Alkaline Phosphatase 346 H 358 H (38-126) Units/L Albumin 2.1 L 2.2 L (3.5-5.0) g/dL - ABG Interpretation ABG results: ABG ABG pH 7.49 pH Units (7.32-7.45) H 12/14/16 04:10 ABG pCO2 35 mmHg (35-45) 12/14/16 04:10 ABG pO2 97 mmHg (85-104) 12/14/16 04:10 ABG O2 Saturation 98 % (95-98) 12/14/16 04:10 - Impressions Impressions Abdomen/Pelvis CT 12/23/16 07:09 IMPRESSION: Marked fatty infiltration liver. Moderate stool load in colon. No bowel obstruction Trace free fluid in pelvis, nonspecific Nonobstructing right renal calculi Nonspecific injection of the fat in the anterior abdominal wall. Correlate for signs of cellulitis D/ / John Ruiz MD / John Ruiz MD Interpreting Provider: John Ruiz MD Chest CT 12/23/16 07:09 IMPRESSION: Mild left basilar atelectasis or less likely very small left lower lobe pneumonia. Slight right lung atelectasis. Mild bronchial wall thickening consistent with some acute bronchitis. Very severe fatty infiltration of the liver. D/ / Madi Arce MD / Madi Arce MD Interpreting Provider: Madi Arce MD - VTE Reasons for not Prescribing Prophylaxis: Not indicated-Anticoagulated or INR therapeutic Documentation of Mechanical Device: Intermittent pneumatic compression device Consult Discharge Plan - Plan Referrals: Carolyn Reardon DO [Partnered Physician] - 12/31/16 1:45 am (Appt. With Nurse Practitioner Aissatou ) Sivakumar Sheridan MD [Partnered Physician] - 01/14/17 10:45 am Monica Chahal CNP [Primary Care Provider] -
[2016-12-23] MEDS ORDERED: Ertapenem 1,000 MG in 0.9 % Sodium Chloride Mini Bag 100 ML IVPB SCH (19:00)
[2016-12-23] MEDS: Insulin DETEMIR 100 UNIT/ML X5UNITS SQ SCH (20:47)
[2016-12-23] MEDS: Ipratropium/Albuterol Neb 3 ML IH SCH (21:09)
[2016-12-23] MEDS: Acetaminophen 325 MG TABLET PO PRN (22:34)
[2016-12-24] MEDS: Ipratropium/Albuterol Neb 3 ML IH SCH ×7 (00:13→23:24)
[2016-12-24 04:03] LABS: Nucleated Red Blood Cells 0.1 /100 WBC (0)
[2016-12-24 04:05] LABS: Hematocrit 30.2 % (35.3-44.9); Hemoglobin 9.7 g/dL (11.5-15.4); Mean Corpuscular HGB Conc 32.1 g/dL (31.6-35.5); Mean Corpuscular Hemoglobin 28.5 pg (28.0-33.3); Mean Corpuscular Volume 88.8 fL (83.0-100.0); Mean Platelet Volume 10.1 fL (9.4-12.4); Platelet Count 278 K/mcL (140-400); Red Cell Distribution Width 16.9 % (11.5-14.5)
[2016-12-24 04:24] LABS: Alanine Aminotransferase 325 Units/L (0-55); Albumin/Globulin Ratio 0.6 (1.1-2.2); Alkaline Phosphatase 340 Units/L (38-126); Aspartate Amino Transferase 308 Units/L (5-34); BUN/Creatinine Ratio 38 (6-26); Bilirubin,Direct 1.9 mg/dL (0.0-0.5); Bilirubin,Indirect 0.8 mg/dL (0.0-1.2); Bilirubin,Total 2.7 mg/dL (0.2-1.2); Blood Urea Nitrogen 30 mg/dL (7-20); Calcium 8.2 mg/dL (8.6-10.8); Carbon Dioxide 31 mEq/L (19-29); Chloride 104 mEq/L (98-109); Globulin 3.1 g/dL (2.4-3.5); Glucose 95 mg/dL (70-99); Magnesium 1.6 mg/dL (1.6-2.6); Osmolality,Calculated 302 (280-300); Potassium 3.5 mEq/L (3.5-4.5); Sodium 143 mEq/L (136-145); Total Protein 5.1 g/dL (6.0-8.3); eGFR For African Americans > 60 (> 60); eGFR For Non-African Americans > 60 (> 60)
[2016-12-24 04:44] LABS: Eosinophils # 0.6 K/mcL (0.0-0.6); Lymphocytes # 1.1 K/mcL (0.6-4.6); Monocytes # 0.6 K/mcL (0.0-1.3); Neutrophils # 25.5 K/mcL (1.6-8.9)
[2016-12-24 04:45] LABS: Anisocytosis 1+ (Not Present); Platelet Estimate Normal (Normal); Stomatocytes 1+ (Not Present)
[2016-12-24 04:46] LABS: Polychromasia 1+ (Not Present); Target Cells 1+ (Not Present)
[2016-12-24] MEDS: Acetaminophen 325 MG TABLET PO PRN (05:37)
[2016-12-24] MEDS: Insulin LISPRO 300 UNITS/3 ML VIAL SQ SCH ×7 (08:57→21:23)
[2016-12-24] MEDS ORDERED: *HR* Amiodarone 200 MG TABLET PO SCH (09:00)
[2016-12-24] MEDS: Magnesium Oxide 400 MG TABLET PO SCH ×2 (09:05→21:22)
[2016-12-24] MEDS: Doxycycline 100 MG CAPSULE PO SCH ×2 (09:05→21:22)
[2016-12-24] MEDS: Hydrocortisone 10 MG TABLET PO SCH ×2 (09:05→17:05)
[2016-12-24] MEDS: Furosemide 40 MG/4 ML VIAL IVP SCH ×2 (09:05→17:06)
[2016-12-24] MEDS: Miconazole 2% ointment 114 GM TUBE TP SCH (09:06)
[2016-12-24] MEDS: Nystatin POWDER 30 GM BOTTLE TP SCH ×2 (09:06→21:23)
[2016-12-24] MEDS: *HR* HYDROcodone/Acet 5/325 mg TABLET PO PRN (17:03)
[2016-12-24] MEDS: *HR* Rivaroxaban 10 MG TABLET PO SCH (17:04)
--- NOTE | 2016-12-24 19:53 | Internal Med Progress Note ---
Date of Encounter: 12/24/16 Time of Encounter: 17:30 - Assessment and plan (1) Acute respiratory failure with hypoxia Current Visit: Yes Status: Acute Assessment and plan: Related to acute bronchitis. Continue supportive care. (2) Acute bronchitis Current Visit: Yes Status: Acute Assessment and plan: Currently on treatment. Qualifiers: Bronchitis organism: other organism Qualified Code(s): J20.8 - Acute bronchitis due to other specified organisms (3) Leukocytosis Current Visit: No Status: Acute Assessment and plan: Related to steroids. Qualifiers: Leukocytosis type: other Qualified Code(s): D72.828 - Other elevated white blood cell count (4) Atrial fibrillation Current Visit: No Status: Acute Assessment and plan: Medical management. Rate controlled at this time. Qualifiers: Atrial fibrillation type: paroxysmal Qualified Code(s): I48.0 - Paroxysmal atrial fibrillation (5) Elevated liver enzymes Current Visit: Yes Status: Acute Assessment and plan: Slightly better today. Recheck tomorrow. (6) Decubitus ulcer Current Visit: Yes Status: Chronic Assessment and plan: Present on admission Continue wound dressing Qualifiers: Pressure ulcer location: buttock Pressure ulcer stage: stage 2 Laterality : unspecified laterality Qualified Code(s): L89.302 - Pressure ulcer of unspecified buttock, stage 2 - Subjective Interval history: Ms. Golden is currently admitted for acute hypoxic resp failure and sepsis. She remains moderate to high risk due to potential for worsening respiratory and cardiac status. Ms. Golden feels anxious and worried. She has some pain but is OK. No fever or chills. Feels very tired. No diarrhea not. No CP. - Constitutional Vitals: Temp Pulse Resp BP Pulse Ox 99.0 F 72 16 140/67 96 12/24/16 16:40 12/24/16 16:40 12/24/16 16:40 12/24/16 16:40 12/24/16 16:40 General appearance: Present: cooperative, A&O X 3, morbidly obese, pleasant, answers questions appropriately - Head Head exam: Present: normocephalic - Eye Eye exam: Present: conjuntiva pink, sclera anicteric - ENT ENT exam: Present: mucous membranes moist - Respiratory Respiratory exam: Present: decreased breath sounds, CTAB. Absent: rales, wheezes - Cardiovascular Cardiovascular exam: Present: irregular rhythm. Absent: tachycardia - GI/Abdominal GI/Abdominal exam: Present: soft. Absent: tenderness - Extremities Exam Extremities exam: Present: warm Additional comments: Dressing intact - Neurological Exam Neurological exam: Present: alert, oriented X3, no focal deficits - Psychiatric Psychiatric exam: Present: anxious Internal Medicine: Result - Labs CBC & Chem 7: 12/24/16 03:33 12/24/16 03:33 Labs: Short CBC 12/24/16 Range/Units 03:33 WBC 27.7 H (4.3-11.1) K/mcL Hgb 9.7 L (11.5-15.4) g/dL Hct 30.2 L (35.3-44.9) % Plt Count 278 (140-400) K/mcL Neutrophils # 25.5 H (1.6-8.9) K/mcL BMP 12/24/16 03:33 Sodium 143 Potassium 3.5 Chloride 104 Carbon Dioxide 31 H BUN 30 H Creatinine 0.78 Glucose 95 Calcium 8.2 L Liver Function 12/24/16 Range/Units 03:33 Total Bilirubin 2.7 H (0.2-1.2) mg/dL Direct Bilirubin 1.9 H (0.0-0.5) mg/dL AST 308 H (5-34) Units/L ALT 325 H (0-55) Units/L Alkaline Phosphatase 340 H (38-126) Units/L Albumin 2.0 L (3.5-5.0) g/dL - ABG Interpretation ABG results: ABG ABG pH 7.49 pH Units (7.32-7.45) H 12/14/16 04:10 ABG pCO2 35 mmHg (35-45) 12/14/16 04:10 ABG pO2 97 mmHg (85-104) 12/14/16 04:10 ABG O2 Saturation 98 % (95-98) 12/14/16 04:10 - VTE Reasons for not Prescribing Prophylaxis: Not indicated-Anticoagulated or INR therapeutic Documentation of Mechanical Device: Intermittent pneumatic compression device Consult Discharge Plan - Plan Referrals: Carolyn Reardon DO [Partnered Physician] - 12/31/16 1:45 am (Appt. With Nurse Practitioner Aissatou ) Sivakumar Sheridan MD [Partnered Physician] - 06/02/17 10:45 am Monica Chahal, BROOKE [Primary Care Provider] -
[2016-12-24] MEDS: Insulin DETEMIR 100 UNIT/ML X5UNITS SQ SCH (21:22)
[2016-12-25] MEDS: Ipratropium/Albuterol Neb 3 ML IH SCH ×6 (03:59→23:16)
[2016-12-25] MEDS: *HR* HYDROcodone/Acet 5/325 mg TABLET PO PRN ×3 (04:49→20:12)
[2016-12-25] MEDS: Insulin LISPRO 300 UNITS/3 ML VIAL SQ SCH ×6 (10:28→17:39)
[2016-12-25] MEDS: Furosemide 40 MG/4 ML VIAL IVP SCH ×2 (10:44→17:38)
[2016-12-25] MEDS: Hydrocortisone 10 MG TABLET PO SCH ×2 (10:45→17:39)
[2016-12-25] MEDS: Magnesium Oxide 400 MG TABLET PO SCH ×2 (10:45→20:13)
[2016-12-25] MEDS: Doxycycline 100 MG CAPSULE PO SCH ×2 (10:45→20:07)
[2016-12-25] MEDS: Nystatin POWDER 30 GM BOTTLE TP SCH (10:46)
[2016-12-25] MEDS: Miconazole 2% ointment 114 GM TUBE TP SCH (10:46)
--- NOTE | 2016-12-25 13:53 | Internal Med Progress Note ---
Date of Encounter: 12/25/16 Time of Encounter: 13:00 - Assessment and plan (1) Acute respiratory failure with hypoxia Current Visit: Yes Status: Acute Assessment and plan: Seems to be slowly improving. Still on oxygen. Will wean as able. (2) Acute bronchitis Current Visit: Yes Status: Acute Assessment and plan: Currently on treatment. Qualifiers: Bronchitis organism: other organism Qualified Code(s): J20.8 - Acute bronchitis due to other specified organisms (3) Leukocytosis Current Visit: No Status: Acute Assessment and plan: Related to steroids. Will recheck tomorrow. Qualifiers: Leukocytosis type: other Qualified Code(s): D72.828 - Other elevated white blood cell count (4) Elevated liver enzymes Current Visit: Yes Status: Acute Assessment and plan: Recheck levels tomorrow. Most likely was related to Diflucan. (5) Venous stasis dermatitis of both lower extremities Current Visit: Yes Status: Chronic Assessment and plan: Local wound care. (6) Atrial fibrillation Current Visit: No Status: Acute Assessment and plan: Medical management. Rate controlled at this time. Qualifiers: Atrial fibrillation type: paroxysmal Qualified Code(s): I48.0 - Paroxysmal atrial fibrillation (7) Decubitus ulcer Current Visit: Yes Status: Chronic Assessment and plan: Present on admission Continue wound dressing Qualifiers: Pressure ulcer location: buttock Pressure ulcer stage: stage 2 Laterality : unspecified laterality Qualified Code(s): L89.302 - Pressure ulcer of unspecified buttock, stage 2 (8) Adrenal insufficiency Current Visit: Yes Status: Chronic Assessment and plan: Will begin to wean steroids down in next day or two. - Subjective Interval history: Ms. Golden is currently admitted for acute hypoxic resp failure and sepsis. She remains moderate to high risk due to potential for worsening respiratory and cardiac status. Ms. Golden had OK night. She is ready for dressing changes right now. No new issues. Appetite OK. No fever or chills. No CP. - Constitutional Vitals: Temp Pulse Resp BP Pulse Ox 98.0 F 78 18 110/68 98 12/25/16 11:27 12/25/16 11:27 12/25/16 11:27 12/25/16 11:27 12/25/16 11:27 General appearance: Present: cooperative, A&O X 3, morbidly obese, pleasant, answers questions appropriately - Head Head exam: Present: normocephalic - Eye Eye exam: Present: conjuntiva pink - ENT ENT exam: Present: mucous membranes moist - Respiratory Respiratory exam: Present: decreased breath sounds, CTAB. Absent: rales, wheezes - Cardiovascular Cardiovascular exam: Present: irregular rhythm. Absent: tachycardia - GI/Abdominal GI/Abdominal exam: Present: normal bowel sounds, soft. Absent: tenderness - Extremities Exam Extremities exam: Present: tenderness, warm Additional comments: Significant erythema and swelling bilaterally. Open areas with serosanguinous drainage. - Neurological Exam Neurological exam: Present: alert, oriented X3 - Skin Skin exam: Present: erythema, warm Internal Medicine: Result - Labs CBC & Chem 7: 12/24/16 03:33 12/24/16 03:33 - ABG Interpretation ABG results: ABG ABG pH 7.49 pH Units (7.32-7.45) H 12/14/16 04:10 ABG pCO2 35 mmHg (35-45) 12/14/16 04:10 ABG pO2 97 mmHg (85-104) 12/14/16 04:10 ABG O2 Saturation 98 % (95-98) 12/14/16 04:10 - VTE Reasons for not Prescribing Prophylaxis: Not indicated-Anticoagulated or INR therapeutic Documentation of Mechanical Device: Intermittent pneumatic compression device Consult Discharge Plan - Plan Referrals: Carolyn Reardon DO [Partnered Physician] - 12/31/16 1:45 am (Appt. With Nurse Practitioner Aissatou ) Sivakumar Sheridan MD [Partnered Physician] - 01/14/17 10:45 am Monica Chahal CNP [Primary Care Provider] -
[2016-12-25] MEDS: *HR* Rivaroxaban 10 MG TABLET PO SCH (17:38)
[2016-12-25] MEDS: Insulin DETEMIR 100 UNIT/ML X5UNITS SQ SCH (20:12)
[2016-12-26] MEDS: Ipratropium/Albuterol Neb 3 ML IH SCH ×6 (03:20→23:34)
[2016-12-26] MEDS: Nystatin POWDER 30 GM BOTTLE TP SCH ×3 (04:53→20:58)
[2016-12-26] MEDS: Insulin LISPRO 300 UNITS/3 ML VIAL SQ SCH ×8 (04:53→20:57)
[2016-12-26] MEDS: *HR* HYDROcodone/Acet 5/325 mg TABLET PO PRN ×2 (05:09→23:12)
[2016-12-26 05:34] LABS: Hematocrit 29.6 % (35.3-44.9); Hemoglobin 9.3 g/dL (11.5-15.4); Mean Corpuscular HGB Conc 31.4 g/dL (31.6-35.5); Mean Corpuscular Hemoglobin 28.7 pg (28.0-33.3); Mean Corpuscular Volume 91.4 fL (83.0-100.0); Mean Platelet Volume 10.6 fL (9.4-12.4); Platelet Count 238 K/mcL (140-400); Red Blood Count 3.24 M/mcL (3.82-4.97); Red Cell Distribution Width 17.7 % (11.5-14.5)
[2016-12-26 05:43] LABS: Alanine Aminotransferase 259 Units/L (0-55); Albumin/Globulin Ratio 0.5 (1.1-2.2); Alkaline Phosphatase 316 Units/L (38-126); Aspartate Amino Transferase 225 Units/L (5-34); BUN/Creatinine Ratio 34 (6-26); Bilirubin,Total 2.8 mg/dL (0.2-1.2); Blood Urea Nitrogen 22 mg/dL (7-20); Calcium 8.4 mg/dL (8.6-10.8); Carbon Dioxide 34 mEq/L (19-29); Chloride 98 mEq/L (98-109); Globulin 3.7 g/dL (2.4-3.5); Glucose 100 mg/dL (70-99); Osmolality,Calculated 293 (280-300); Potassium 3.5 mEq/L (3.5-4.5); Sodium 140 mEq/L (136-145); Total Protein 5.4 g/dL (6.0-8.3); eGFR For African Americans > 60 (> 60); eGFR For Non-African Americans > 60 (> 60)
[2016-12-26 05:45] LABS: Albumin 1.7 g/dL (3.5-5.0)
[2016-12-26] MEDS ORDERED: Magnesium Sulfate 2 GM in D5% in Water 100 ML IVPB ONE (08:03)
[2016-12-26] MEDS ORDERED: Hydrocortisone 10 MG TABLET PO SCH (09:00)
[2016-12-26] MEDS: Miconazole 2% ointment 114 GM TUBE TP SCH (10:20)
[2016-12-26] MEDS: Doxycycline 100 MG CAPSULE PO SCH ×2 (10:20→20:54)
[2016-12-26] MEDS: Magnesium Oxide 400 MG TABLET PO SCH ×2 (10:20→20:54)
[2016-12-26] MEDS: Furosemide 40 MG/4 ML VIAL IVP SCH ×2 (10:20→18:16)
--- NOTE | 2016-12-26 11:55 | Internal Med Progress Note ---
Date of Encounter: 12/26/16 Time of Encounter: 11:48 - Assessment and plan (1) Hypomagnesemia Current Visit: Yes Status: Acute Assessment and plan: Replace today. (2) Acute respiratory failure with hypoxia Current Visit: Yes Status: Acute Assessment and plan: Doing better overall. Weaning off oxygen. (3) Acute bronchitis Current Visit: Yes Status: Acute Assessment and plan: Currently on treatment. Seems to be improving slowly. Qualifiers: Bronchitis organism: other organism Qualified Code(s): J20.8 - Acute bronchitis due to other specified organisms (4) Leukocytosis Current Visit: No Status: Acute Assessment and plan: Related to steroids. Lower today. Recheck again tomorrow. Qualifiers: Leukocytosis type: other Qualified Code(s): D72.828 - Other elevated white blood cell count (5) Elevated liver enzymes Current Visit: Yes Status: Acute Assessment and plan: Somewhat better today. Recheck again tomorrow. (6) Venous stasis dermatitis of both lower extremities Current Visit: Yes Status: Chronic Assessment and plan: Local wound care. (7) Atrial fibrillation Current Visit: No Status: Acute Assessment and plan: Medical management. Rate controlled at this time. Qualifiers: Atrial fibrillation type: paroxysmal Qualified Code(s): I48.0 - Paroxysmal atrial fibrillation (8) Decubitus ulcer Current Visit: Yes Status: Chronic Assessment and plan: Present on admission Continue wound dressing Qualifiers: Pressure ulcer location: buttock Pressure ulcer stage: stage 2 Laterality : unspecified laterality Qualified Code(s): L89.302 - Pressure ulcer of unspecified buttock, stage 2 (9) Adrenal insufficiency Current Visit: Yes Status: Chronic Assessment and plan: Will begin to wean steroids down in next day or two. (10) Diabetes Current Visit: Yes Status: Chronic Assessment and plan: Continue current plan of care. 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 Golden is currently admitted for acute hypoxic resp failure and sepsis. She remains moderate to high risk due to potential for worsening respiratory and cardiac status. Ms. Golden is feeling OK at this time. No new issues. Legs starting to feel better. No CP or SOB. No fevers or chills. Abd feels somewhat tender. Not much BM. - Constitutional Vitals: Temp Pulse Resp BP Pulse Ox 98.2 F 66 16 137/76 95 12/25/16 21:09 12/26/16 05:47 12/26/16 05:47 12/26/16 05:47 12/26/16 05:47 General appearance: Present: cooperative, A&O X 3, morbidly obese, pleasant, answers questions appropriately - Head Head exam: Present: normocephalic - Eye Eye exam: Present: EOMI, conjuntiva pink - ENT ENT exam: Present: mucous membranes moist - Respiratory Respiratory exam: Present: decreased breath sounds, CTAB. Absent: rales, wheezes - Cardiovascular Cardiovascular exam: Present: irregular rhythm. Absent: tachycardia - GI/Abdominal GI/Abdominal exam: Present: normal bowel sounds, soft, tenderness (Mild diffuse tenderness.), no peritoneal signs - Extremities Exam Extremities exam: Present: tenderness, warm Additional comments: Bilateral edema and stasis. Erythema seems to be slowly improving. - Neurological Exam Neurological exam: Present: alert, oriented X3 - Skin Skin exam: Present: erythema, warm Internal Medicine: Result - Labs CBC & Chem 7: 12/26/16 05:00 12/26/16 05:00 Labs: Short CBC 12/26/16 Range/Units 05:00 WBC 22.2 H (4.3-11.1) K/mcL Hgb 9.3 L (11.5-15.4) g/dL Hct 29.6 L (35.3-44.9) % Plt Count 238 (140-400) K/mcL BMP 12/26/16 05:00 Sodium 140 Potassium 3.5 Chloride 98 Carbon Dioxide 34 H BUN 22 H Creatinine 0.65 Glucose 100 H Calcium 8.4 L Liver Function 12/26/16 Range/Units 05:00 Total Bilirubin 2.8 H (0.2-1.2) mg/dL AST 225 H (5-34) Units/L ALT 259 H (0-55) Units/L Alkaline Phosphatase 316 H (38-126) Units/L Albumin 1.7 L (3.5-5.0) g/dL - ABG Interpretation ABG results: ABG ABG pH 7.49 pH Units (7.32-7.45) H 12/14/16 04:10 ABG pCO2 35 mmHg (35-45) 12/14/16 04:10 ABG pO2 97 mmHg (85-104) 12/14/16 04:10 ABG O2 Saturation 98 % (95-98) 12/14/16 04:10 - VTE Reasons for not Prescribing Prophylaxis: Not indicated-Anticoagulated or INR therapeutic Documentation of Mechanical Device: Intermittent pneumatic compression device Consult Discharge Plan - Plan Referrals: Carolyn Reardon DO [Partnered Physician] - 12/31/16 1:45 am (Appt. With Nurse Practitioner Aissatou ) Sivakumar Sheridan MD [Partnered Physician] - 01/14/17 10:45 am Monica Chahal CNP [Primary Care Provider] -
[2016-12-26] MEDS: Hydrocortisone 10 MG TABLET PO SCH (18:16)
[2016-12-26] MEDS: *HR* Rivaroxaban 10 MG TABLET PO SCH (18:16)
[2016-12-26] MEDS: Insulin DETEMIR 100 UNIT/ML X5UNITS SQ SCH (20:54)
[2016-12-27] MEDS: Ipratropium/Albuterol Neb 3 ML IH SCH ×3 (03:57→11:10)
[2016-12-27] MEDS: *HR* HYDROcodone/Acet 5/325 mg TABLET PO PRN ×2 (05:15→17:39)
[2016-12-27 05:26] LABS: Hematocrit 28.1 % (35.3-44.9); Hemoglobin 8.9 g/dL (11.5-15.4); Mean Corpuscular HGB Conc 31.7 g/dL (31.6-35.5); Mean Corpuscular Hemoglobin 28.5 pg (28.0-33.3); Mean Corpuscular Volume 90.1 fL (83.0-100.0); Mean Platelet Volume 11.1 fL (9.4-12.4); Platelet Count 244 K/mcL (140-400); Red Blood Count 3.12 M/mcL (3.82-4.97); Red Cell Distribution Width 18.2 % (11.5-14.5)
[2016-12-27 05:46] LABS: BUN/Creatinine Ratio 33 (6-26); Blood Urea Nitrogen 20 mg/dL (7-20); Calcium 8.3 mg/dL (8.6-10.8); Carbon Dioxide 35 mEq/L (19-29); Chloride 96 mEq/L (98-109); Glucose 130 mg/dL (70-99); Magnesium 1.6 mg/dL (1.6-2.6); Osmolality,Calculated 290 (280-300); Potassium 3.7 mEq/L (3.5-4.5); Sodium 138 mEq/L (136-145); eGFR For African Americans > 60 (> 60); eGFR For Non-African Americans > 60 (> 60)
[2016-12-27] MEDS: Furosemide 40 MG/4 ML VIAL IVP SCH ×2 (08:52→17:39)
[2016-12-27] MEDS: Doxycycline 100 MG CAPSULE PO SCH ×2 (08:52→21:26)
[2016-12-27] MEDS: Insulin LISPRO 300 UNITS/3 ML VIAL SQ SCH ×4 (08:53→21:26)
[2016-12-27] MEDS: Magnesium Oxide 400 MG TABLET PO SCH ×2 (08:53→21:26)
[2016-12-27] MEDS: Hydrocortisone 10 MG TABLET PO SCH ×2 (08:54→17:38)
[2016-12-27] MEDS: Nystatin POWDER 30 GM BOTTLE TP SCH ×2 (08:54→21:27)
[2016-12-27] MEDS: Miconazole 2% ointment 114 GM TUBE TP SCH (08:54)
[2016-12-27] MEDS ORDERED: Ipratropium/Albuterol Neb 3 ML IH PRN (11:41)
--- NOTE | 2016-12-27 13:13 | Internal Med Progress Note ---
Date of Encounter: 12/27/16 Time of Encounter: 09:00 - Assessment and plan (1) Acute respiratory failure with hypoxia Current Visit: Yes Status: Acute Assessment and plan: Continues to do OK. (2) Acute bronchitis Current Visit: Yes Status: Acute Assessment and plan: Completing abx. Qualifiers: Bronchitis organism: other organism Qualified Code(s): J20.8 - Acute bronchitis due to other specified organisms (3) Hypomagnesemia Current Visit: Yes Status: Acute Assessment and plan: Improved today. Will reassess tomorrow. (4) Leukocytosis Current Visit: No Status: Acute Assessment and plan: Continues to slowly improve. Qualifiers: Leukocytosis type: other Qualified Code(s): D72.828 - Other elevated white blood cell count (5) Elevated liver enzymes Current Visit: Yes Status: Acute Assessment and plan: Slowly improving. Reassess tomorrow. (6) Venous stasis dermatitis of both lower extremities Current Visit: Yes Status: Chronic Assessment and plan: Local wound care. (7) Atrial fibrillation Current Visit: No Status: Acute Assessment and plan: Medical management. Rate controlled at this time. Qualifiers: Atrial fibrillation type: paroxysmal Qualified Code(s): I48.0 - Paroxysmal atrial fibrillation (8) Decubitus ulcer Current Visit: Yes Status: Chronic Assessment and plan: Present on admission Continue wound dressing Qualifiers: Pressure ulcer location: buttock Pressure ulcer stage: stage 2 Laterality : unspecified laterality Qualified Code(s): L89.302 - Pressure ulcer of unspecified buttock, stage 2 (9) Adrenal insufficiency Current Visit: Yes Status: Chronic Assessment and plan: Will begin to wean steroids down in next day or two. (10) Diabetes Current Visit: Yes Status: Chronic Assessment and plan: Continue current plan of care. Qualifiers: Diabetes mellitus type: type 2 Diabetes mellitus complication status: with unspecified complications Diabetes mellitus alf insulin use: without alf use Qualified Code(s): E11.8 - Type 2 diabetes mellitus with unspecified complications - Subjective Interval history: Ms. Golden is currently admitted for acute hypoxic resp failure and sepsis. She remains moderate to high risk due to potential for worsening respiratory and cardiac status. Ms. Golden has no new issues. Pain appears to be controlled. No fever or chills. No GI issues. Working on d/c planning to new SNF. - Constitutional Vitals: Temp Pulse Resp BP Pulse Ox 98.2 F 77 15 128/66 96 12/25/16 21:09 12/27/16 07:00 12/27/16 07:00 12/27/16 07:00 12/27/16 07:00 General appearance: Present: cooperative, A&O X 3, morbidly obese, pleasant, answers questions appropriately - Head Head exam: Present: normocephalic - Eye Eye exam: Present: conjuntiva pink, sclera anicteric - ENT ENT exam: Present: mucous membranes moist - Respiratory Respiratory exam: Present: decreased breath sounds, CTAB. Absent: rhonchi, wheezes - Cardiovascular Cardiovascular exam: Present: distant heart sounds, irregular rhythm. Absent: tachycardia - GI/Abdominal GI/Abdominal exam: Present: soft. Absent: tenderness - Extremities Exam Extremities exam: Present: tenderness, warm Additional comments: Edema and erythema slowly improving. Internal Medicine: Result - Labs CBC & Chem 7: 12/27/16 05:00 12/27/16 05:00 Labs: Short CBC 12/27/16 Range/Units 05:00 WBC 18.7 H (4.3-11.1) K/mcL Hgb 8.9 L (11.5-15.4) g/dL Hct 28.1 L (35.3-44.9) % Plt Count 244 (140-400) K/mcL BMP 12/27/16 05:00 Sodium 138 Potassium 3.7 Chloride 96 L Carbon Dioxide 35 H BUN 20 Creatinine 0.61 Glucose 130 H Calcium 8.3 L - ABG Interpretation ABG results: ABG ABG pH 7.49 pH Units (7.32-7.45) H 12/14/16 04:10 ABG pCO2 35 mmHg (35-45) 12/14/16 04:10 ABG pO2 97 mmHg (85-104) 12/14/16 04:10 ABG O2 Saturation 98 % (95-98) 12/14/16 04:10 - VTE Reasons for not Prescribing Prophylaxis: Not indicated-Anticoagulated or INR therapeutic Documentation of Mechanical Device: Intermittent pneumatic compression device Consult Discharge Plan - Plan Referrals: Carolyn Reardon DO [Partnered Physician] - 12/31/16 1:45 am (Appt. With Nurse Practitioner Aissatou ) Sivakumar Sheridan MD [Partnered Physician] - 01/14/17 10:45 am Monica Chahal CNP [Primary Care Provider] -
[2016-12-27] MEDS: *HR* Rivaroxaban 10 MG TABLET PO SCH (17:38)
[2016-12-27] MEDS: Insulin DETEMIR 100 UNIT/ML X5UNITS SQ SCH (21:26)
[2016-12-28] MEDS: *HR* HYDROcodone/Acet 5/325 mg TABLET PO PRN (01:08)
[2016-12-28 06:31] LABS: Hematocrit 28.1 % (35.3-44.9); Mean Corpuscular Volume 90.6 fL (83.0-100.0); Mean Platelet Volume 10.6 fL (9.4-12.4); Platelet Count 262 K/mcL (140-400); Red Cell Distribution Width 18.5 % (11.5-14.5)
[2016-12-28 06:49] LABS: Alanine Aminotransferase 193 Units/L (0-55); Albumin/Globulin Ratio 0.4 (1.1-2.2); Alkaline Phosphatase 350 Units/L (38-126); Aspartate Amino Transferase 196 Units/L (5-34); BUN/Creatinine Ratio 32 (6-26); Bilirubin,Total 2.5 mg/dL (0.2-1.2); Blood Urea Nitrogen 19 mg/dL (7-20); Calcium 8.4 mg/dL (8.6-10.8); Carbon Dioxide 36 mEq/L (19-29); Chloride 97 mEq/L (98-109); Globulin 3.8 g/dL (2.4-3.5); Glucose 96 mg/dL (70-99); Magnesium 1.2 mg/dL (1.6-2.6); Osmolality,Calculated 292 (280-300); Potassium 3.4 mEq/L (3.5-4.5); Sodium 140 mEq/L (136-145); Total Protein 5.4 g/dL (6.0-8.3); eGFR For African Americans > 60 (> 60); eGFR For Non-African Americans > 60 (> 60)
[2016-12-28 06:50] LABS: Albumin 1.6 g/dL (3.5-5.0)
[2016-12-28 07:33] VITALS: BP 112/55
[2016-12-28] MEDS: Doxycycline 100 MG CAPSULE PO SCH (08:24)
[2016-12-28] MEDS: Hydrocortisone 10 MG TABLET PO SCH (08:25)
[2016-12-28] MEDS: Magnesium Oxide 400 MG TABLET PO SCH (08:25)
[2016-12-28] MEDS: Furosemide 40 MG/4 ML VIAL IVP SCH (08:25)
[2016-12-28] MEDS: Insulin LISPRO 300 UNITS/3 ML VIAL SQ SCH ×2 (08:38→12:31)
[2016-12-28] MEDS: Miconazole 2% ointment 114 GM TUBE TP SCH (08:39)
--- NOTE | 2016-12-28 12:01 | Discharge Summary ---
Date of Encounter: 12/28/16 Time of Encounter: 11:56 - Discharge Diagnosis (1) Acute respiratory failure with hypoxia Priority: Primary Status: Resolved (2) Acute bronchitis Priority: Primary Status: Acute Qualifiers: Bronchitis organism: other organism Qualified Code(s): J20.8 - Acute bronchitis due to other specified organisms (3) Hypomagnesemia Priority: Secondary Status: Acute (4) Leukocytosis Priority: Secondary Status: Acute Qualifiers: Leukocytosis type: other Qualified Code(s): D72.828 - Other elevated white blood cell count (5) Elevated liver enzymes Priority: Secondary Status: Acute (6) Venous stasis dermatitis of both lower extremities Priority: Secondary Status: Chronic (7) Atrial fibrillation Priority: Primary Status: Acute Qualifiers: Atrial fibrillation type: paroxysmal Qualified Code(s): I48.0 - Paroxysmal atrial fibrillation (8) Decubitus ulcer Priority: Secondary Status: Chronic Qualifiers: Pressure ulcer location: buttock Pressure ulcer stage: stage 2 Laterality : unspecified laterality Qualified Code(s): L89.302 - Pressure ulcer of unspecified buttock, stage 2 (9) Adrenal insufficiency Priority: Secondary Status: Chronic (10) Diabetes Priority: Secondary Status: Chronic Qualifiers: Diabetes mellitus type: type 2 Diabetes mellitus complication status: with unspecified complications Diabetes mellitus halfway insulin use: without terminal system operator use Qualified Code(s): E11.8 - Type 2 diabetes mellitus with unspecified complications - Discharge Medications Prescriptions: HYDROcodone/Acet 5/325 mg [[place] 5-325 mg] 1 tab PO Q6H PRN #10 tablet PRN Reason: Pain Home Medications: Aspirin 81 mg PO DAILY 12/12/16 [History] Cetirizine HCl [All Day Allergy] 10 mg PO DAILY 12/12/16 [History] Metoprolol Tartrate 25 mg PO BID 12/12/16 [History] Montelukast Sodium [Singulair] 10 mg PO DAILY 12/12/16 [History] Multivitamin [Multi-Day Vitamins] 1 tab PO DAILY 12/12/16 [History] Nitroglycerin [Nitrostat] 0.4 mg SL AD PRN 12/12/16 [History] Nystatin POWDER [Nystop] 1 appl TP BID 12/12/16 [History] Rivaroxaban [Xarelto] 20 mg PO DAILY 12/12/16 [History] Fluticasone Propionate Nasal [Flonase] 50 mcg NS DAILY 12/13/16 [History] Furosemide [Lasix] 40 mg PO BID 12/13/16 [History] Potassium Chloride [K-Tab ER] 20 meq PO DAILY 12/13/16 [History] hydrOXYzine HCl [Hydroxyzine HCl] 25 mg PO Q8H PRN 12/13/16 [History] Acetaminophen [Tylenol] 650 mg PO Q6HR PRN #0 tablet 12/28/16 [Rx] Doxycycline 100 mg PO BID 1 Days 12/28/16 [Rx] HYDROcodone/Acet 5/325 mg [[place] 5-325 mg] 1 tab PO Q6H PRN #10 tablet 12/28/16 [Rx] Hydrocortisone [Cortef] 10 mg PO 1500 tablet 12/28/16 [Rx] Hydrocortisone [Cortef] 12.5 mg PO DAILY tablet 12/28/16 [Rx] Insulin DETEMIR [Levemir] 10 unit SQ HS [id number] 12/28/16 [Rx] Ipratropium/Albuterol Neb [Duoneb] 3 ml IH [id number] PRN #0 inhsol 12/28/16 [Rx] Magnesium Oxide [Mag-Ox] 400 mg PO BID tablet 12/28/16 [Rx] Miconazole 2% ointment [Aloe [place] Antifungal Ointment] 1 appl TP DAILY tube [Rx] Omeprazole [PriLOSEC] 20 mg PO DAILY@0630 capsule. 12/28/16 [Rx] Sennosides/Docusate Sodium [Senna Plus] 2 each PO BID PRN #0 tablet 12/28/16 [Rx ] Sertraline [Zoloft] 50 mg PO DAILY tablet 12/28/16 [Rx] Allergies/Adverse Reactions: Allergies levofloxacin [From Levaquin] Allergy (Verified 09/28/16 08:50) Hives Penicillins Allergy (Verified 09/28/16 08:50) Blister prednisone Allergy (Verified 09/28/16 08:50) See Comments all over swelling Sulfa (Sulfonamide Antibiotics) Allergy (Verified 09/28/16 08:50) Hives Banana Adverse Reaction (Severe, Verified 09/28/16 08:50) Blister egg Adverse Reaction (Severe, Verified 09/28/16 08:50) Throat swelling nitrofurantoin [From Macrobid] Adverse Reaction (Severe, Verified 09/28/16 08:50 ) Bruising on arms Date of admission: 12/13/16 01:49 Primary care physician: Monica Chahal CNP Consults: 12/13/16 01:52 Consult to Cardiology [CONS] Routine Comment: Consulting Provider: Cardiology [facility] Reason for Consult: A fib/RVR Call Completed: No 12/13/16 03:11 Consult to Wound Care [CONS] Routine Reason for Consult: Multiple pressure ulcers on buttocks, left heel, skin tears in abdominal folds Call Completed: No 12/13/16 05:26 Consult to Invasive Line Access Team [CONS] Stat Reason for Consult: Limited IV access Line Type: EPIV PICC line indications: Limited vascular access 12/13/16 08:47 Consult to Speech Therapy [CONS] Routine Comment: Evaluate, develop and implement POC Reason for Consult: Dysphagia Call Completed: No 12/13/16 15:35 Consult to Hospital Liaison [CONS] Routine Reason for SW Consult: From [facility] 12/16/16 08:54 Consult to Nephrology [CONS] Stat Consulting Provider: Kidney [facility]/YVON/DARIEL/KHUSHI Reason for Consult: OLiguria, persistent, normal kidney function, please evaluate. Thank you. Call Completed: Yes 12/16/16 15:23 Consult to Occupational Therapy [CONS] Routine Comment: Evaluate, develop and implement POC Reason for Consult: Patient from [facility], family wants to take patient home. Consult to Physical Therapy [CONS] Routine Comment: Evaluate, develop and implement POC Reason for Consult: Patient is from [facility], family wants patient to discharge home; Patient requiring significant assistance with cares here in hospital 12/19/16 10:17 Consult to Surgery [CONS] Routine Consulting Provider: Surgery [facility] Reason for Consult: Anemia with Positive FOBT, r/o GIB, please evaluate. Thank you. Call Completed: Yes 12/24/16 05:55 Consult to Portfolio Strategist [CONS] Routine Comment: Reason for Consult: pt requesting more education related to their diabetes Discharging clinician: Tod Piper Anticipated date of discharge: 12/28/16 - Patient Status Disposition: Transfer SNF Condition: Fair Functional capacity at discharge: bed bound Overall status at discharge: patient is progressing back to baseline - Discharge Instructions Instructions: Hydrocodone/Acetaminophen (By mouth), Heart Failure (DC), Atrial Fibrillation (DC), Chest Pain (DC), Urinary Tract Infection in Women (DC), Diabetes Mellitus Type 2 in Adults (DC), Sepsis (DC), Pneumonia (DC) Follow Up With: Carolyn Reardon DO [Partnered Physician] - 12/31/16 1:45 am (Appt. With Nurse Practitioner Aissatou ) Sivakumar Sheridan MD [Partnered Physician] - 01/14/17 10:45 am Monica Chahal CNP [Primary Care Provider] - - Diet and Activity Activity: as per physical therapy, increase activity as tolerated Diet: diabetic diet, low salt diet Hospital course: Ms. Golden is a 66 year old female with multiple medical conditions brought to ED for nausea, vomiting and decreased oral intake. She was found to be in rapid a fib and hypoglycemic. She was treated there ([place] [facility]) and transferred to here. Ms. Golden was initially admitted to with sepsis related to UTI and rapid atrial fibrillation as well as profound hypoglycemia. Her glucose was monitored closely and she was started on IV abx. Due to prior hx of ESBL organism she was given Merrem. She was given digoxin for heartrate and was evaluated by cardiology. She was placed on IV amiodarone for rate and rhythm control. Urine culture grew yeast and she was treated with fluconazole. Her legs were edematous and weeping and local wound care begun. Her blood sugars were labile and ultimately need D5 infusion. She was maintained on Xarelto for anticoagulation. She had issues with her urine output and was evaluated by renal service. Her blood pressure fluctuated and she was noted to be anemic. Surgery consulted due to positive fecal occult but did not feel she needed endoscopy at this time. Her liver function elevated and fluconazole stopped. This slowly decreased over the next few days. She was transferred to [facility]. Due to hypoxemia she had CT chest which showed bronchitis and she will finish a 7 day course of Doxycycline. She also was noted to have adrenal insufficiency and hydrocortisone was started with improvement. She slowly continued to improve. Her liver function was trending down. Her vitals stabilized and she was evaluated by PT/OT and recommended SNF. Arrangements were made for discharge. On 12/28/16 she was afebrile. WBC was still somewhat elevated but much improved and thought due to steroids. She was completing a course of abx. Her vitals were stable. At that time she was felt ready for d/c to SNF. - Time Spent with Patient Total time spent providing and/or coordinating discharge services: 44min - Constitutional Vitals: Temp Pulse Resp BP Pulse Ox 97.9 F 74 16 112/55 96 12/28/16 07:00 12/28/16 07:00 12/28/16 07:00 12/28/16 07:00 12/28/16 07:00 General appearance: Present: cooperative, A&O X 3, morbidly obese, pleasant, answers questions appropriately - Head Head exam: Present: normocephalic - ENT ENT exam: Present: mucous membranes moist - Respiratory Respiratory exam: Present: decreased breath sounds, CTAB - Cardiovascular Cardiovascular exam: Present: distant heart sounds, irregular rhythm. Absent: tachycardia - GI/Abdominal GI/Abdominal exam: Present: soft, tenderness, no peritoneal signs - Extremities Exam Extremities exam: Present: tenderness, warm Additional comments: Edema slowly improving. - Neurological Exam Neurological exam: Present: alert, oriented X3 - Skin Skin exam: Present: dry, erythema, warm. Absent: rash - VTE Reasons for not Prescribing Prophylaxis: Not indicated-Anticoagulated or INR therapeutic Documentation of Mechanical Device: Intermittent pneumatic compression device
[2016-12-28] MEDS: Nystatin POWDER 30 GM BOTTLE TP SCH (12:31)
--- NOTE | 2016-12-28 13:27 | Physician Discharge Referral ---
ExtendedCare Referral Info Provider in Charge: Tod Piper DO Provider in Charge after Transfer: PCP Institutional Level of Care: Skilled - Diagnosis (1) Acute respiratory failure with hypoxia Priority: Primary Status: Resolved (2) Acute bronchitis Priority: Primary Status: Acute (3) Hypomagnesemia Priority: Secondary Status: Acute (4) Leukocytosis Priority: Secondary Status: Acute (5) Elevated liver enzymes Priority: Secondary Status: Acute (6) Venous stasis dermatitis of both lower extremities Priority: Secondary Status: Chronic (7) Atrial fibrillation Priority: Primary Status: Acute (8) Decubitus ulcer Priority: Secondary Status: Chronic (9) Adrenal insufficiency Priority: Secondary Status: Chronic (10) Diabetes Priority: Secondary Status: Chronic Expected Duration of Placement: Less than 30 days Prognosis: Fair Aware of Diagnosis: Patient Aware of Prognosis: Patient - Transfer Medications Prescriptions: HYDROcodone/Acet 5/325 mg [[place] 5-325 mg] 1 tab PO Q6H PRN #10 tablet PRN Reason: Pain Home Medications: Aspirin 81 mg PO DAILY 12/12/16 [History] Cetirizine HCl [All Day Allergy] 10 mg PO DAILY 12/12/16 [History] Metoprolol Tartrate 25 mg PO BID 12/12/16 [History] Montelukast Sodium [Singulair] 10 mg PO DAILY 12/12/16 [History] Multivitamin [Multi-Day Vitamins] 1 tab PO DAILY 12/12/16 [History] Nitroglycerin [Nitrostat] 0.4 mg SL AD PRN 12/12/16 [History] Nystatin POWDER [Nystop] 1 appl TP BID 12/12/16 [History] Rivaroxaban [Xarelto] 20 mg PO DAILY 12/12/16 [History] Fluticasone Propionate Nasal [Flonase] 50 mcg NS DAILY 12/13/16 [History] Furosemide [Lasix] 40 mg PO BID 12/13/16 [History] Potassium Chloride [K-Tab ER] 20 meq PO DAILY 12/13/16 [History] hydrOXYzine HCl [Hydroxyzine HCl] 25 mg PO Q8H PRN 12/13/16 [History] Acetaminophen [Tylenol] 650 mg PO Q6HR PRN #0 tablet 12/28/16 [Rx] Doxycycline 100 mg PO BID 1 Days 12/28/16 [Rx] HYDROcodone/Acet 5/325 mg [[place] 5-325 mg] 1 tab PO Q6H PRN #10 tablet 12/28/16 [Rx] Hydrocortisone [Cortef] 10 mg PO 1500 tablet 12/28/16 [Rx] Hydrocortisone [Cortef] 12.5 mg PO DAILY tablet 12/28/16 [Rx] Insulin DETEMIR [Levemir] 10 unit SQ HS [id number] 12/28/16 [Rx] Ipratropium/Albuterol Neb [Duoneb] 3 ml IH [id number] PRN #0 inhsol 12/28/16 [Rx] Magnesium Oxide [Mag-Ox] 400 mg PO BID tablet 12/28/16 [Rx] Miconazole 2% ointment [Aloe [place] Antifungal Ointment] 1 appl TP DAILY tube [Rx] Omeprazole [PriLOSEC] 20 mg PO DAILY@0630 capsule. 12/28/16 [Rx] Sennosides/Docusate Sodium [Senna Plus] 2 each PO BID PRN #0 tablet 12/28/16 [Rx ] Sertraline [Zoloft] 50 mg PO DAILY tablet 12/28/16 [Rx] Allergies/Adverse Reactions: Allergies levofloxacin [From Levaquin] Allergy (Verified 09/28/16 08:50) Hives Penicillins Allergy (Verified 09/28/16 08:50) Blister prednisone Allergy (Verified 09/28/16 08:50) See Comments all over swelling Sulfa (Sulfonamide Antibiotics) Allergy (Verified 09/28/16 08:50) Hives Banana Adverse Reaction (Severe, Verified 09/28/16 08:50) Blister egg Adverse Reaction (Severe, Verified 09/28/16 08:50) Throat swelling nitrofurantoin [From Macrobid] Adverse Reaction (Severe, Verified 09/28/16 08:50 ) Bruising on arms - Respiratory Orders Oxygen / L per min (Maintain saturation greater than 90%) Smoking Cessation: Smoking cessation has been advised. For more information, call the [place] Tobacco Quit Line at 3-468-DOKA-NOW. - Lab Orders Lab Orders: 2 Step Mantoux Test per State regulation - Ancillary Orders May use pressure relief devices daily prn, May consult with Dentist, Leaf Tier, Labour Market Economist PRN - Advance Directives Code Status: Full Code - History and Physical History/Physical reviewed & approved w/add comments: Now has less edema and erythema. Heart rate controlled - Mobility Orders Ambulate - Rehabiliation Orders Rehab Potential: Fair Rehab Orders: Evaluation for Physical Therapy, Evaluation for Occupational Therapy - Treatments Skin tear care topically daily PRN per policy, May check for fecal impaction rectally daily PRN, Fleet enema rectally every other day PRN cleansing purposes - Diet Orders No Added Salt (JOSEPH) CERTIFICATION: I certify that the transfer of the above named patient to an Extended Care Facility is necessary for the continuing treatment of the diagnosis listed. The above information is true and accurate reflection of patient's current condition. Confidential - Redisclosure prohibited without a patient's written consent.
== END 2016-12-28 16:56 | DRG 871 ==
LOC: 2NENU → SUATTDRO 12-13 01:49 → ICNU 12-13 13:39 → 2NNU 12-13 22:30 → 2NENU 12-23 10:58
PROVIDERS: ADMIT Hospitalist; ATTEND Internal Medicine

== ENCOUNTER 2017-03-07 13:26 | Inpatient (IN) ==
[2017-03-07] MEDS ORDERED: 0.9 % Sodium Chloride 1,000 ML IVC ONE (14:00)
[2017-03-07 14:33] LABS: Bilirubin,Urine Small (Negative); Blood,Urine Large (Negative); Clarity,Urine Turbid (Clear); Glucose,Urine (UA) Normal (Normal); Ketones,Urine Trace mg/dL (Negative); Leukocyte Esterase,Urine Large (Negative); Nitrite,Urine Positive (Negative); Protein,Urine 100 mg/dL (Neg-Trace); Specific Gravity,Urine 1.021 (1.010-1.025); Urobilinogen,Urine Normal (Normal)
[2017-03-07 14:35] LABS: Squamous Epithelial Cell,Urine Many per lpf (None-Few); WBC,Urine TNTC per hpf (0-3)
[2017-03-07 14:36] LABS: Basophils # 0.1 K/mcL (0.0-0.2); Basophils % 0.6 %; Eosinophils # 0.7 K/mcL (0.0-0.6); Eosinophils % 5.2 %; Hemoglobin 14.7 g/dL (11.5-15.4); Immature Granulocytes % 0.4 % (0-4); Lymphocytes # 2.5 K/mcL (0.6-4.6); Lymphocytes % 17.3 %; Mean Corpuscular HGB Conc 32.7 g/dL (31.6-35.5); Mean Corpuscular Hemoglobin 27.6 pg (28.0-33.3); Mean Corpuscular Volume 84.4 fL (83.0-100.0); Mean Platelet Volume 10.7 fL (9.4-12.4); Monocytes # 0.9 K/mcL (0.0-1.3); Monocytes % 6.2 %; Platelet Count 261 K/mcL (140-400); Red Blood Count 5.33 M/mcL (3.82-4.97); Red Cell Distribution Width 13.1 % (11.5-14.5); Segmented Neutrophils % 70.3 %
[2017-03-07 14:41] LABS: Color,Urine Dark Yellow (Yellow)
[2017-03-07 14:48] LABS: Alanine Aminotransferase 31 Units/L (0-55); Albumin 2.9 g/dL (3.5-5.0); Albumin/Globulin Ratio 0.6 (1.1-2.2); Alkaline Phosphatase 119 Units/L (38-126); BUN/Creatinine Ratio 17 (6-26); Blood Urea Nitrogen 14 mg/dL (7-20); Calcium 9.2 mg/dL (8.6-10.8); Carbon Dioxide 29 mEq/L (19-29); Chloride 100 mEq/L (98-109); Globulin 4.9 g/dL (2.4-3.5); Glucose 136 mg/dL (70-99); Osmolality,Calculated 291 (280-300); Sodium 139 mEq/L (136-145); Total Protein 7.8 g/dL (6.0-8.3); eGFR For African Americans > 60 (> 60); eGFR For Non-African Americans > 60 (> 60)
[2017-03-07 14:49] LABS: Aspartate Amino Transferase 65 Units/L (5-34)
[2017-03-07 14:53] LABS: Potassium 3.9 mEq/L (3.5-4.5)
[2017-03-07 15:00] LABS: Amorphous Sediment,Urine Present (Few)
[2017-03-07 15:03] LABS: RBC,Urine Present per hpf (0-3)
[2017-03-07 15:04] LABS: Bacteria,Urine Present per hpf (None-Few); Calcium Oxalate Crystals,Urine Present; Yeast,Urine Present per hpf (None Seen)
[2017-03-07 15:05] LABS: Bilirubin,Direct 0.2 mg/dL (0.0-0.5); Bilirubin,Indirect 0.8 mg/dL (0.0-1.2); Lipase 25 Units/L (8-78)
[2017-03-07] MEDS ORDERED: Ipratropium/Albuterol Neb 3 ML IH ONE (15:31)
--- NOTE | 2017-03-07 15:31 | Emergency Department Note ---
Disposition Clinical Impression: Dehydration, Acute exacerbation of COPD with asthma Pneumonia Qualifiers: Pneumonia type: due to unspecified organism Laterality: right Lung location: middle lobe of lung Qualified Code(s): J18.1 - Lobar pneumonia, unspecified organism UTI (urinary tract infection) Qualifiers: Urinary tract infection type: acute cystitis Hematuria presence: without hematuria Qualified Code(s): N30.00 - Acute cystitis without hematuria Disposition: Admitted As Inpatient Condition: Good Referrals: NO,PCP [Non-Partnered Physician] - Forms: ED Satisfaction Letter Time of Disposition: 17:13 Nausea/Vomiting/Diarrhea HPI - General Chief complaint: ED Nausea/Vomiting/Diarrhea Stated complaint: N/V Time Seen by Provider: 03/07/17 13:28 Source: patient Mode of arrival: ambulatory Limitations: no limitations Nursing Notes Reviewed: Yes Vital Signs Reviewed: Yes - History of Present Illness HPI Narrative: Patient presents by EMS to the emergency room for evaluation of nausea vomiting and symptoms consistent with urinary tract infection. She met him several days progressed of her symptoms. She is in an out of penitentiary secondary to chronic disability. She has an indwelling Sanchez in place. She has had symptoms of this in the past and function impression 1. Bilateral denied any other symptoms or issues at this time. Denies fevers chills cough cold congestion headache or vision changes. Denies chest pain or shortness of breath. Main issue this time is urinary tract like symptoms and nausea. Pt Subjective Complaint: nausea, abdominal pain Onset (ago): day(s) If pain, Location of pain: diffuse Radiation: diffuse Severity: moderate Severity scale (1-10): 6 Quality: cramping Consistency: constant Improves with: movement Worsens with: nonthing Context: history of abdominal surgery Associated symptoms: Reports: loss of appetite, nausea/vomiting, dysuria - Related Data Home Medications Medication Instructions Recorded Confirmed Aspirin 81 mg PO DAILY 12/12/16 03/07/17 Cetirizine HCl [All Day Allergy] 10 mg PO DAILY 12/12/16 03/07/17 Metoprolol Tartrate 25 mg PO BID 12/12/16 03/07/17 Montelukast Sodium [Singulair] 10 mg PO DAILY 12/12/16 03/07/17 Multivitamin [Multi-Day Vitamins] 1 tab PO DAILY 12/12/16 03/07/17 Nitroglycerin [Nitrostat] 0.4 mg SL AD PRN MDD 3 DOSES 12/12/16 03/07/17 Rivaroxaban [Xarelto] 20 mg PO DAILY 12/12/16 03/07/17 Fluticasone Propionate Nasal 50 mcg NS DAILY 12/13/16 03/07/17 [Flonase] Furosemide [Lasix] 40 mg PO BID 12/13/16 03/07/17 Potassium Chloride [K-Tab ER] 20 meq PO DAILY 12/13/16 03/07/17 hydrOXYzine HCl [Hydroxyzine HCl] 25 mg PO Q8H PRN 12/13/16 03/07/17 Albuterol Neb [Proventil Neb] 2.5 mg IH Q4H PRN 03/07/17 03/07/17 DiphenhydraMINE [Benadryl] 25 mg PO Q6H PRN 03/07/17 03/07/17 Gabapentin [Neurontin] 200 mg PO TID 03/07/17 03/07/17 Loperamide [Imodium] 4 mg PO AD PRN MDD 8MG 03/07/17 03/07/17 Sulfamethoxazole/Trimeth DS 1 each PO BID 03/07/17 03/07/17 [Bactrim DS] Previous Rx's Medication Instructions Recorded Acetaminophen [Tylenol] 650 mg PO Q6HR PRN #0 tablet 12/28/16 HYDROcodone/Acet 5/325 mg [[place] 1 tab PO Q6H PRN #10 tablet 12/28/16 5-325 mg] Hydrocortisone [Cortef] 12.5 mg PO DAILY tablet 12/28/16 Magnesium Oxide [Mag-Ox] 400 mg PO BID tablet 12/28/16 Omeprazole [PriLOSEC] 20 mg PO DAILY@0630 capsule. 12/28/16 Sennosides/Docusate Sodium [Senna 2 each PO BID PRN #0 tablet 12/28/16 Plus] Sertraline [Zoloft] 50 mg PO DAILY tablet 12/28/16 Allergies Allergy/AdvReac Type Severity Reaction Status Date / Time levofloxacin [From Levaquin] Allergy Hives Verified 09/28/16 08:50 Penicillins Allergy Blister Verified 09/28/16 08:50 prednisone Allergy See Verified 09/28/16 08:50 Comments Sulfa (Sulfonamide Allergy Hives Verified 09/28/16 08:50 Antibiotics) Banana AdvReac Severe Blister Verified 09/28/16 08:50 egg AdvReac Severe Throat Verified 09/28/16 08:50 swelling nitrofurantoin AdvReac Severe Bruising Verified 09/28/16 08:50 [From Macrobid] on arms All systems ED: reviewed and negative except as stated. Review of Systems: As Per HPI Constitutional: Denies: fever, chills ENT ED: Denies: ear pain Cardiovascular: Denies: chest pain, palpitations, dyspnea on exertion, orthopnea , edema Respiratory: Reports: wheezes. Denies: cough, dyspnea, hemoptysis, sputum production Gastrointestinal: Reports: abdominal pain, nausea. Denies: vomiting, diarrhea, constipation Genitourinary: Denies: urgency, dysuria, frequency Musculoskeletal: Denies: back pain, neck pain Integumentary: Denies: rash Neurological: Denies: headache Psychiatric: Denies: anxiety Endocrine: Denies: fatigue Past Medical History - Past Medical History Attestation: Yes The following information was validated with the patient. Source: patient Medical history: Reports: arthritis, asthma, atrial fibrillation, CHF, COPD, diabetes, GERD Surgical history: Reports: angioplasty/stent, hysterectomy Psychiatric history: Reports: anxiety, depression, panic disorder - Social History Smoking Status: Never smoker Smokeless Tobacco Status: No Alcohol use: Reports: none Drug use: Reports: none Physical Exam - General Limitations: no limitations General appearance: in no apparent distress - Head Head exam: atraumatic, normocephalic, normal inspection - Neck Neck exam: Present: normal inspection, full ROM, trachea midline - Chest Chest inspection: Present: normal inspection, symmetric chest wall rise - Respiratory Respiratory exam: Present: normal lung sounds bilaterally. Absent: respiratory distress, accessory muscle use - Cardiovascular Cardiovascular exam: Present: regular rate, normal rhythm, normal heart sounds - Abdominal Exam Abdominal exam: Present: soft, tenderness, normal bowel sounds. Absent: Non- Tender, distention, guarding, rebound, rigidity - Extremities Exam Extremities exam: Present: normal inspection, full ROM, normal capillary refill. Absent: tenderness - Back Exam Back exam: Present: normal inspection, full ROM, tenderness. Absent: CVA tenderness (R), CVA tenderness (L), muscle spasm - Neurological Exam Neurological exam: Present: alert, oriented X3, CN II-XII intact, normal gait - Skin Skin exam: Present: warm, dry, intact, normal color Course Course Narrative: Patient seen and examined at the time of arrival by EMS. Patient was scheduled for outpatient evaluation by her PCP today for nausea and lower abdominal discomfort. She described this is similar to previous urinary tract infection. She was not able to make it to the primary care provider's appointment today secondary to the discomfort. Patient presented here to the emergency room and no specific complaints at this time. She had persistent nausea but took her home medications without any complication. Vital signs reviewed on presentation stable patient is afebrile. Physical exam shows morbidly obese chronically debilitated female resting in the bed with Sanchez catheter in place. She is in no specific respiratory distress. Her mucous membranes are dry. She is alert she has arch is following up commands appropriately. Lungs have intermittent wheezing but nothing specific initially on exam. Heart is regular and abdomen is soft with mild tenderness in the suprapubic region. No guarding no rigidity no peritoneal like symptoms. No shortness of mild edema and swelling no specific signs of trauma injury redness swelling or warmth. There are symmetrical bilateral with good palpable pulses as well as a warm sensation. She is concerning for possible intra-abdominal pathology including urinary tract infection as well as pulmonary source secondary to her COPD hypertension and breathing related issues. Patient had a chest x-ray EKG laboratory evaluation including liver function testing and lipase as well as urinalysis and CT imaging of the abdomen. His nausea pain and pain medication to be ordered at this time. Disposition pending workup and treatment course. Patient is otherwise in no acute distress at this time we will continue to monitor his treatment course is completed. Patient has indwelling Sanchez catheter with dark colored urine. - Reevaluation(s) Reevaluation #1: Patient found to have urinary tract infection as well as pneumonia on chest x- ray. Pulse ox blood pressure and vital signs all been stable. Breathing has decreased in decompensated while here secondary to lying flat. Breathing treatments ordered at this time secondary to wheezing. Otherwise patient is resting in the bed in no specific distress. Antibiotics ordered within the expectations of her allergies. Rocephin and azithromycin to be given at this time. Disposition will be admission to the hospital for definitive management of what appears to be urinary tract infection pneumonia and exacerbation of COPD. No other acute issues at this time patient is otherwise stable family and the patient went to the [facility] for this at this time. We will continue to monitor here is the hospitalist was paged for admission process Time: 15:55 Reevaluation #2: Hospitalist and I reviewed the patient's presentation symptoms of medical intervention. Concern is noted for COPD exacerbation secondary to pneumonia as well as urinary tract infection. I discussed our intervention in the emergency room including antibiotics and symptom control. They are comfortable with the plan at this time. Patient is stable will be admitted to the hospital for definitive management. No other concerns or recommendations noted for the hospitals group this point. We will continue to monitor the patient has emergency room to the admission process is completed Time: 17:12 Vital Signs Temperature 98.2 F 03/07/17 13:27 Pulse Rate 87 03/07/17 13:27 Respiratory Rate 16 03/07/17 13:27 Blood Pressure 118/78 03/07/17 13:27 O2 Sat by Pulse Oximetry 92 03/07/17 13:27 Temperature 98.2 F 03/07/17 13:27 Pulse Rate 87 03/07/17 13:27 Respiratory Rate 16 03/07/17 15:48 Blood Pressure 118/78 03/07/17 13:27 O2 Sat by Pulse Oximetry 90 03/07/17 15:48 Oxygen Delivery Oxygen Delivery Room Air Nausea/Vomiting/Diarrhea - MDM Narrative Medical decision making narrative: Urinary tract infection, pneumonia, COPD exacerbation - Medical Records Medical records reviewed: Yes I reviewed the patient's medical records. - Lab Data Lab results reviewed: Yes I reviewed the patient's lab results. Result diagrams: 03/07/17 14:22 03/07/17 14:22 Lab Results 03/07/17 03/07/17 03/07/17 Range/Units 14:22 14:22 14:27 WBC 14.3 H (4.3-11.1) K/mcL RBC 5.33 H (3.82-4.97) M/mcL Hgb 14.7 (11.5-15.4) g/dL Hct 45.0 H (35.3-44.9) % MCV 84.4 (83.0-100.0) fL MCH 27.6 L (28.0-33.3) pg MCHC 32.7 (31.6-35.5) g/dL RDW 13.1 (11.5-14.5) % Plt Count 261 (140-400) K/mcL MPV 10.7 (9.4-12.4) fL Immature Gran % 0.4 (0-4) % Seg Neutrophils % 70.3 % Lymphocytes % 17.3 % Monocytes % 6.2 % Eosinophils % 5.2 % Basophils % 0.6 % Neutrophils # 10.0 H (1.6-8.9) K/mcL Lymphocytes # 2.5 (0.6-4.6) K/mcL Monocytes # 0.9 (0.0-1.3) K/mcL Eosinophils # 0.7 H (0.0-0.6) K/mcL Basophils # 0.1 (0.0-0.2) K/mcL Sodium 139 (136-145) mEq/L Potassium 3.9 (3.5-4.5) mEq/L Chloride 100 (98-109) mEq/L Carbon Dioxide 29 (19-29) mEq/L BUN 14 (7-20) mg/dL Creatinine 0.81 (0.57-1.11) mg/dL Est GFR ( Amer) > 60 (> 60) Est GFR (Non-Af Amer) > 60 (> 60) BUN/Creatinine Ratio 17 (6-26) Glucose 136 H (70-99) mg/dL Calculated Osmolality 291 (280-300) Calcium 9.2 (8.6-10.8) mg/dL Total Bilirubin 1.0 (0.2-1.2) mg/dL Direct Bilirubin 0.2 (0.0-0.5) mg/dL Indirect Bilirubin 0.8 (0.0-1.2) mg/dL AST 65 H (5-34) Units/L ALT 31 (0-55) Units/L Alkaline Phosphatase 119 (38-126) Units/L Serum Total Protein 7.8 (6.0-8.3) g/dL Albumin 2.9 L (3.5-5.0) g/dL Globulin 4.9 H (2.4-3.5) g/dL Albumin/Globulin Ratio 0.6 L (1.1-2.2) Lipase 25 (8-78) Units/L Urine Color Dark Yellow (Yellow) Urine Clarity Turbid A (Clear) Urine pH 7.0 (5.0-8.0) pH Units Ur Specific [place] 1.021 (1.010-1.025) Urine Protein 100 H (Neg-Trace) mg/dL Urine Glucose (UA) Normal (Normal) mg/dL Urine Ketones Trace H (Negative) mg/dL Urine Blood Large H (Negative) Urine Nitrite Positive A (Negative) Urine Bilirubin Small H (Negative) Urine Urobilinogen Normal (Normal) mg/dL Ur Leukocyte Esterase Large H (Negative) Urine Microscopic RBC Present (0-3) per hpf Urine Microscopic WBC TNTC H (0-3) per hpf Ur Squamous Epith Cells Many H (None-Few) per lpf Calcium Oxalate Crystal Present Amorphous Sediment Present (Few) Urine Bacteria Present (None-Few) per hpf Urine Yeast Present H (None Seen) per hpf Ur Culture Indicated? YES A (NO) - Radiology Data Radiology results reviewed: Yes I reviewed the patient's radiology results. Chest x-ray is confirmatory for possible pneumonia as well as CT imaging showing no acute pathology at this time. Otherwise negative exam - EKG Data EKG attestation: Yes I reviewed and interpreted this EKG. EKG shows normal: sinus rhythm, axis, intervals, QRS complexes, ST-T waves Rate: normal Rhythm: NSR [place]/QRS: normal When compared to previous EKG there are: previous EKG unavailable Interpretation: normal EKG Critical Care Time Critical Care Time: Yes Total Critical Care Time: 35 Attestation: Critical care performed: Time is exclusive of separately billable procedures. Time includes: direct patient care, patient reassessment, coordination of patient care, interpretation of data (laboratory data, radiology data, and respiratory data), review of patient's medical records, medical consultation and documentation of patient care. Procedures included in critical care time: Procedures excluded from critical care time:
[2017-03-07] MEDS ORDERED: Levofloxacin 750 MG/150 ML 750 MG/150 ML BAG IVPB ONE (15:33)
[2017-03-07] MEDS ORDERED: Azithromycin 500 MG in D5% in Water 250 ML IVPB ONE (15:50)
[2017-03-07] MEDS ORDERED: Cefepime HCl 1,000 MG in D5% in Water (Mini-Bag+) 100 ML IVPB STA (17:46)
[2017-03-07] MEDS ORDERED: Acetaminophen 325 MG TABLET PO PRN (17:50)
[2017-03-07] MEDS ORDERED: Naloxone 0.4 MG/ML INJ IVP PRN (17:50)
[2017-03-07] MEDS ORDERED: Ondansetron 4 MG/2 ML VIAL IVP PRN (17:50)
[2017-03-07] MEDS ORDERED: *HR* Morphine 2 MG/ML SYRINGE IVP PRN (17:50)
[2017-03-07] MEDS ORDERED: *HR* HYDROcodone/Acet 5/325 mg TABLET PO PRN (17:54)
[2017-03-07] MEDS ORDERED: Ipratropium/Albuterol Neb 3 ML IH PRN (17:56)
[2017-03-07] MEDS ORDERED: Nitroglycerin 0.4 MG TAB.SUBL SL PRN (17:56)
--- NOTE | 2017-03-07 18:00 | Internal Med History&Physical ---
Date of Encounter: 03/07/17 Time of Encounter: 17:57 Assessment and Plan (1) Sepsis Current visit: No Status: Acute Septic shock secondary to healthcare associated pneumonia present upon admission /UTI with history of Escherichia coli multidrug resistant Continue cefepime and azithromycin, repeat lactic acid, blood cultures, urine cultures Mild hydration secondary to history of diastolic CHF Omeprazole for GI prophylaxis and Xarelto for DVT prophylaxis. The patient will be admitted as inpatient, expected stable into maintenance. DNR CC arrest DNI. Time spent on this admission 40 minutes. High risk due to septic shock Qualifiers: Sepsis type: sepsis due to unspecified organism Qualified Code(s): A41.9 - Sepsis, unspecified organism (2) UTI (urinary tract infection) Current visit: Yes Status: Acute Qualifiers: Urinary tract infection type: acute cystitis Hematuria presence: without hematuria Qualified Code(s): N30.00 - Acute cystitis without hematuria (3) Atrial fibrillation Current visit: No Status: Acute Continue metoprolol and Xarelto Qualifiers: Atrial fibrillation type: paroxysmal Qualified Code(s): I48.0 - Paroxysmal atrial fibrillation (4) SVT (supraventricular tachycardia) Current visit: No Status: Acute History of SVT Continue metoprolol (5) Diabetes Current visit: No Status: Chronic Continue insulin sliding scale Qualifiers: Diabetes mellitus type: type 2 Diabetes mellitus complication status: with unspecified complications Diabetes mellitus termite exterminator insulin use: without termite exterminator use Qualified Code(s): E11.8 - Type 2 diabetes mellitus with unspecified complications (6) Lactic acidosis Current visit: No Status: Resolved (7) Dehydration Current visit: Yes Status: Acute Internal Medicine - H&P: HPI Chief complaint: Vomiting, fever Admitted From: Emergency Dept History of present illness: Ms. Golden is a 67 year old female with a past medical history of recurrent UTIs, atrial fibrillation on Xarelto, diastolic CHF, diabetes type 2 not insulin dependent, SVT. She was recently discharged from the hospital in December of this year where she was seen for respiratory failure. The patient says that she has been having nausea and vomiting for the past day, not able to keep anything down. She says she has an indwelling catheter and needs been burning since yesterday. Chest x-ray shows a right ericka-Roxana or airspace disease compatible with pneumonia. She has been bringing up yellowish phlegm and says that her daughter has been having a respiratory infection lately. Also, her urinalysis shows positive nitrates with multiple bacteria and too numerous to count white blood cells. AST 65 white blood cell count 14.3 lactic acid is 5.1. Patient is dehydrated and is tachycardic 110 during my examination. She was given azithromycin and Rocephin at the emergency room. She has history of Escherichia coli multidrug resistant sensitive to cefepime, the ER physician was instructed to switch to this medication. Complaining of abdominal pain diffuse. CT scan of the abdomen did not show any acute finding Past Med Surg Social Fam HX - Past Medical History Medical history: arthritis, asthma, atrial fibrillation (On Xarelto), CHF ( Diastolic CHF), COPD (Not oxygen dependent), diabetes (Not insulin-dependent), GERD, kidney stones, other (UTI with Escherichia coli multidrug resistant sensitive to cefepime, candiduria, SVT, decubitus ulcer, GERD, dysphagia, CAD status post stents, anxiety, possible adrenal insufficiency) Psychiatric history: anxiety, depression, panic disorder - Past Surgical History Surgical History: angioplasty/stent, hysterectomy - Social History Smoking Status: Never smoker Smokeless Tobacco Status: No Alcohol use: none Drug use: none - Family History Brother Living Status: Still Living Hx Family Cardiac Disorders: Yes (HTN) Hx Family Endocrine Disorder: Yes (Diabetes) Mother Living Status: Hx Family Cardiac Disorders: Yes (HTN) Hx Family Endocrine Disorder: Yes (Diabetes) Father Living Status: Hx Family Cardiac Disorders: Yes (CABG x3 HTN diabetes) Hx Family Respiratory Disorders: No Hx Family Cancer: No Hx Family GI Disorders: No Hx Family Endocrine Disorder: Yes Hx Family Neuromuscular Disorders: No Hx Family Neurologic Disorders: No Hx Family HEENT Disorders: No Hx Family Autoimmune Disorders: No - Additional Family History Additional family history: Mother and brother with hypertension and diabetes. Father with CABG Internal Medicine - H&P: Meds Aspirin 81 mg PO DAILY 12/12/16 [History] Cetirizine HCl [All Day Allergy] 10 mg PO DAILY 12/12/16 [History] Metoprolol Tartrate 25 mg PO BID 12/12/16 [History] Montelukast Sodium [Singulair] 10 mg PO DAILY 12/12/16 [History] Multivitamin [Multi-Day Vitamins] 1 tab PO DAILY 12/12/16 [History] Nitroglycerin [Nitrostat] 0.4 mg SL AD PRN MDD 3 DOSES 12/12/16 [History] Rivaroxaban [Xarelto] 20 mg PO DAILY 12/12/16 [History] Fluticasone Propionate Nasal [Flonase] 50 mcg NS DAILY 12/13/16 [History] Furosemide [Lasix] 40 mg PO BID 12/13/16 [History] Potassium Chloride [K-Tab ER] 20 meq PO DAILY 12/13/16 [History] hydrOXYzine HCl [Hydroxyzine HCl] 25 mg PO Q8H PRN 12/13/16 [History] Acetaminophen [Tylenol] 650 mg PO Q6HR PRN #0 tablet 12/28/16 [Rx] HYDROcodone/Acet 5/325 mg [[place] 5-325 mg] 1 tab PO Q6H PRN #10 tablet 12/28/16 [Rx] Hydrocortisone [Cortef] 12.5 mg PO DAILY tablet 12/28/16 [Rx] Magnesium Oxide [Mag-Ox] 400 mg PO BID tablet 12/28/16 [Rx] Omeprazole [PriLOSEC] 20 mg PO DAILY@0630 capsule. 12/28/16 [Rx] Sennosides/Docusate Sodium [Senna Plus] 2 each PO BID PRN #0 tablet 12/28/16 [Rx ] Sertraline [Zoloft] 50 mg PO DAILY tablet 12/28/16 [Rx] Albuterol Neb [Proventil Neb] 2.5 mg IH Q4H PRN 03/07/17 [History] DiphenhydraMINE [Benadryl] 25 mg PO Q6H PRN 03/07/17 [History] Gabapentin [Neurontin] 200 mg PO TID 03/07/17 [History] Loperamide [Imodium] 4 mg PO AD PRN MDD 8MG 03/07/17 [History] Sulfamethoxazole/Trimeth DS [Bactrim DS] 1 each PO BID 03/07/17 [History] Allergies levofloxacin [From Levaquin] Allergy (Verified 09/28/16 08:50) Hives Penicillins Allergy (Verified 09/28/16 08:50) Blister prednisone Allergy (Verified 09/28/16 08:50) See Comments all over swelling Sulfa (Sulfonamide Antibiotics) Allergy (Verified 09/28/16 08:50) Hives Banana Adverse Reaction (Severe, Verified 09/28/16 08:50) Blister egg Adverse Reaction (Severe, Verified 09/28/16 08:50) Throat swelling nitrofurantoin [From Macrobid] Adverse Reaction (Severe, Verified 09/28/16 08:50 ) Bruising on arms All Systems PM: A 10-system review of systems was performed and is negative for pertinent findings except as documented above in the HPI. Review of systems: Denies any chest pain, feels short of breath, has been having high fevers not quantified, chills, dysuria, diarrhea yesterday but nothing today, other systems out of the 10 reviewed were negative. Feels very weak - Constitutional Vitals: Temp Pulse Resp BP Pulse Ox 98.2 F 87 16 118/78 90 03/07/17 13:27 03/07/17 13:27 03/07/17 15:48 03/07/17 13:27 03/07/17 15:48 General appearance: Present: A&O X 3, morbidly obese - Head Head exam: Present: atraumatic, normocephalic - Eye Eye exam: Present: PERRL, conjuntiva pink, sclera anicteric Pupils: Present: PERRL - Neck Neck exam general surgery: Present: supple, trachea midline. Absent: lymphadenopathy - Respiratory Respiratory exam: Present: decreased breath sounds, CTAB, rales (Fine bibasilar crackles minimal). Absent: accessory muscle use, rhonchi, wheezes - Cardiovascular Cardiovascular exam: Present: RRR, +S1, +S2. Absent: diastolic murmur, gallop, rubs, systolic murmur - GI/Abdominal GI/Abdominal exam: Present: distended (Nontender), normal bowel sounds, soft, no peritoneal signs. Absent: rebound, tenderness - Extremities Exam Extremities exam: Present: warm, radial pulses palpable and symetrical. Absent : calf tenderness, cyanotic, pedal edema Additional comments: Indwelling Sanchez catheter. Left lower extremity mild erythema on the inferior area of the smith - Neurological Exam Neurological exam: Present: CN II-XII intact, oriented X3, no focal deficits. Absent: pronater drift, facial droop, speech deficit - Skin Skin exam: Present: dry, intact Internal Med - H&P Results - Labs CBC & Chem 7: 03/07/17 14:22 03/07/17 14:22
[2017-03-07] MEDS: 0.9 % Sodium Chloride 1,000 ML IVC SCH (18:05)
[2017-03-07] MEDS ORDERED: D5% in Water 1,000 ML IVC PRN (18:05)
[2017-03-07] MEDS ORDERED: Dextrose Gel 15 GM PO PRN ×2 (18:05)
[2017-03-07] MEDS ORDERED: *HR* Dextrose 50 % in Water (Syg) 50 ML SYRINGE IVP PRN (18:05)
[2017-03-07] MEDS: Gabapentin 100 MG CAPSULE PO SCH (19:39)
[2017-03-08] MEDS: 0.9 % Sodium Chloride 1,000 ML IVC SCH ×3 (03:27→16:13)
[2017-03-08] MEDS ORDERED: Cefepime HCl 1,000 MG in D5% in Water (Mini-Bag+) 100 ML IVPB SCH (05:00)
[2017-03-08] MEDS: Insulin LISPRO 300 UNITS/3 ML VIAL SQ SCH ×4 (08:11→21:11)
[2017-03-08] MEDS: Gabapentin 100 MG CAPSULE PO SCH ×3 (08:11→21:09)
[2017-03-08] MEDS: Aspirin 81 MG TAB.CHEW PO SCH (08:11)
[2017-03-08] MEDS: *HR* Rivaroxaban 10 MG TABLET PO SCH (08:11)
[2017-03-08] MEDS: Hydrocortisone 10 MG TABLET PO SCH (08:15)
[2017-03-08 08:47] LABS: Hematocrit 40.4 % (35.3-44.9); Mean Corpuscular HGB Conc 32.2 g/dL (31.6-35.5); Mean Corpuscular Hemoglobin 27.3 pg (28.0-33.3); Mean Corpuscular Volume 84.9 fL (83.0-100.0); Mean Platelet Volume 10.7 fL (9.4-12.4); Platelet Count 241 K/mcL (140-400); Red Blood Count 4.76 M/mcL (3.82-4.97); Red Cell Distribution Width 13.2 % (11.5-14.5)
[2017-03-08] MEDS ORDERED: *HR* HYDROcodone/Acet 10/325 mg TABLET PO PRN (08:50)
[2017-03-08 08:58] LABS: BUN/Creatinine Ratio 17 (6-26); Blood Urea Nitrogen 12 mg/dL (7-20); Calcium 8.3 mg/dL (8.6-10.8); Carbon Dioxide 26 mEq/L (19-29); Chloride 103 mEq/L (98-109); Glucose 151 mg/dL (70-99); Osmolality,Calculated 289 (280-300); Potassium 2.9 mEq/L (3.5-4.5); Sodium 138 mEq/L (136-145); eGFR For African Americans > 60 (> 60); eGFR For Non-African Americans > 60 (> 60)
[2017-03-08] MEDS ORDERED: Magnesium Sulfate 2 GM in D5% in Water 100 ML IVPB ONE (09:00)
--- NOTE | 2017-03-08 10:32 | Internal Med Progress Note ---
<Harpreet Wagoner - Last Filed: 03/08/17 11:45> Date of Encounter: 03/08/17 Time of Encounter: 10:25 - Assessment and plan (1) Severe sepsis Current Visit: Yes Status: Acute Assessment and plan: - Likely secondary to urinary tract infection, hospital acquired pneumonia - In Emergency room patient was tachycardic at 110, blood cell of 14.3, lactic acid of 5.1 - Chest x-ray revealed consolidation likely pneumonia - Urinalysis showed nitrates, bacteria, white blood cells - Repeat lactic acid of 4.1. Tachycardia resolved, temperature of 99.6 - Continue cefepime and azithromycin - Blood Cultures pending (2) Lactic acidosis Current Visit: Yes Status: Acute Assessment and plan: - Secondary to infection, likely urinary tract infection versus pneumonia - On presentation was 5.1, down trended to 4.1 - repeat Lactic acid ordered. 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 - Urine culture pending - Contact precautions in place Qualifiers: Urinary tract infection type: acute cystitis Hematuria presence: without hematuria Qualified Code(s): N30.00 - Acute cystitis without hematuria; N39.0 - Urinary tract infection, site not specified (4) Pneumonia Current Visit: Yes Status: Acute Assessment and plan: - Chest x-ray report is currently of consolidations consistent with pneumonia - Sputum culture ordered - Onset of productive cough - 2 new cefepime, azithromycin for broad-spectrum antibiotic Qualifiers: Pneumonia type: due to unspecified organism Laterality: right Lung location: middle lobe of lung Qualified Code(s): J18.1 - Lobar pneumonia, unspecified organism (5) Generalized weakness Current Visit: No Status: Chronic Assessment and plan: - Chronic issue for which she has been seen at rehabilitation - PT/OT - Follow up as outpatient for rehabilitation (6) DVT prophylaxis Current Visit: No Status: Acute Assessment and plan: - Xarelto - Time Spent With Patient 25 - 35 minutes - Subjective Interval history: Patient was seen and examined at bedside this morning. She states that she is feeling much better than yesterday, however still admits to some dysuria, chills. She states that she frequently gets urinary tract infections and has an indwelling catheter. She states that she was hospitalized in rehabilitation since September because "she cannot walk" and was just returned home approximately 2 weeks ago. She states that she was not experiencing a cough at home, however since tingling to the hospital she has started to have a productive cough with thick yellow sputum. She denies any symptoms of shortness of breath, abdominal pain or change in bowel movements, fever, chest pain. - Constitutional Vitals: Temp Pulse Resp BP Pulse Ox 99.6 F 81 20 108/68 94 03/08/17 06:36 03/08/17 06:36 03/08/17 06:36 03/08/17 06:36 03/08/17 06:36 General appearance: Present: A&O X 3, morbidly obese Exam: Gen.: Vitals noted. No acute distress. AAOx3 HEENT: PERRL/EOMI, oropharynx clear, Normocephalic, atraumatic. Mildly Dry mucous membranes Neck: Supple. No adenopathy. Cardiac: RRR, no murmur, +S1/S2 Pulmonary: CTA bilaterally, no wheezes, rales or rhonchi, equal chest expansion Abdomen: soft, nontender, BS noted, no guarding Back: Nontender throughout. MSK: ROM intact, no joint swelling noted Extremities: Mild bilateral lower extremity edema. Chronic venous stasis ulcers. no cyanosis or clubbing Neuro: A&Ox3, moves all extremities, no focal deficits Psych: Appropriate mood and behavior Internal Medicine: Result - Labs CBC & Chem 7: 03/08/17 08:01 03/08/17 08:01 Labs: Short CBC 03/08/17 Range/Units 08:01 WBC 13.2 H (4.3-11.1) K/mcL Hgb 13.0 D (11.5-15.4) g/dL Hct 40.4 (35.3-44.9) % Plt Count 241 (140-400) K/mcL BMP 03/08/17 08:01 Sodium 138 Potassium 2.9 L D Chloride 103 Carbon Dioxide 26 BUN 12 Creatinine 0.72 Glucose 151 H Calcium 8.3 L Consult Discharge Plan - Plan Referrals: Carolyn Reardon DO [Primary Care Provider] - <Tod Piper - Last Filed: 03/08/17 17:44> Date of Encounter: 03/08/17 - Assessment and plan (1) Severe sepsis Current Visit: Yes Status: Acute (2) UTI (urinary tract infection) Current Visit: Yes Status: Acute Qualifiers: Urinary tract infection type: catheter-associated UTI Indwelling urinary catheter type: indwelling urethral catheter Encounter type: subsequent encounter Qualified Code(s): T83.511D - Infection and inflammatory reaction due to indwelling urethral catheter, subsequent encounter; N39.0 - Urinary tract infection, site not specified (3) Lactic acidosis Current Visit: Yes Status: Acute (4) Pneumonia Current Visit: Yes Status: Acute Qualifiers: Pneumonia type: due to unspecified organism Laterality: right Lung location: middle lobe of lung Qualified Code(s): J18.1 - Lobar pneumonia, unspecified organism (5) Atrial fibrillation Current Visit: No Status: Chronic Assessment and plan: On Xarelto. Qualifiers: Atrial fibrillation type: paroxysmal Qualified Code(s): I48.0 - Paroxysmal atrial fibrillation (6) CHF (congestive heart failure) Current Visit: No Status: Chronic Qualifiers: Congestive heart failure type: diastolic Congestive heart failure chronicity: chronic Qualified Code(s): I50.32 - Chronic diastolic (congestive ) heart failure (7) Generalized weakness Current Visit: No Status: Chronic (8) Diabetes Current Visit: No Status: Chronic Qualifiers: Diabetes mellitus type: type 2 Diabetes mellitus complication status: with hyperglycemia Diabetes mellitus long-term insulin use: without intermediate teacher use Qualified Code(s): E11.65 - Type 2 diabetes mellitus with hyperglycemia - Time Spent With Patient Greater than 35 minutes - Constitutional Vitals: Temp Pulse Resp BP Pulse Ox 97.9 F 75 18 100/60 96 03/08/17 16:14 03/08/17 16:14 03/08/17 16:14 03/08/17 16:14 03/08/17 16:14 Internal Medicine: Result - Labs CBC & Chem 7: 03/08/17 08:01 03/08/17 08:01 Labs: Short CBC 03/08/17 Range/Units 08:01 WBC 13.2 H (4.3-11.1) K/mcL Hgb 13.0 D (11.5-15.4) g/dL Hct 40.4 (35.3-44.9) % Plt Count 241 (140-400) K/mcL [facility] 03/08/17 08:01 Sodium 138 Potassium 2.9 L D Chloride 103 Carbon Dioxide 26 BUN 12 Creatinine 0.72 Glucose 151 H Calcium 8.3 L - Attending Attestation I examined this patient and my medical decision-making was reviewed with the Resident Physician on 03/08/17. I agree with the documented findings, disposition and treatment plan as described except to the extent set forth below. Ms. Golden is currently admitted for severe sepsis related to presumed UTI and pneumonia. She is high risk due to potential for worsening respiratory and infectious symptoms. Ms. Golden is feeling somewhat better. No chest pain. Fever has decreased. No GI symptoms. Having cough. Having some discomfort with go as well. Exam Alert. Comfortable Mucus membranes dry Heart reg No wheeze or rhonchi Abd soft I/P 1. CAUTI - present on admit. ? infection versus colonization. Hx of ESBL organism in past. On IV abx. 2. PNA - on IV abx coverage 3. Weakness Pt had been enrolled in [facility] prior to admission and plans on returning at discharge. Further diagnoses and plan as above.
[2017-03-08] MEDS ORDERED: Potassium Chloride 40 MEQ, Lidocaine 1% 2 ML in D5% in Water 500 ML IVPB ONE (10:48)
[2017-03-08] MEDS: Azithromycin 500 MG in D5% in Water 250 ML IVPB SCH (16:12)
[2017-03-08] MEDS: Cefepime HCl 2,000 MG in D5% in Water (Mini-Bag+) 100 ML IVPB SCH (17:18)
--- NOTE | 2017-03-08 17:38 | Electrocardiograph Report ---
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
[2017-03-09] MEDS: 0.9 % Sodium Chloride 1,000 ML IVC SCH ×3 (03:59→17:17)
[2017-03-09] MEDS: Cefepime HCl 2,000 MG in D5% in Water (Mini-Bag+) 100 ML IVPB SCH (04:44)
[2017-03-09 06:19] LABS: Hematocrit 35.5 % (35.3-44.9); Mean Corpuscular HGB Conc 31.8 g/dL (31.6-35.5); Mean Corpuscular Hemoglobin 27.2 pg (28.0-33.3); Mean Corpuscular Volume 85.3 fL (83.0-100.0); Platelet Count 209 K/mcL (140-400); Red Blood Count 4.16 M/mcL (3.82-4.97); Red Cell Distribution Width 13.2 % (11.5-14.5)
[2017-03-09 06:20] LABS: Hemoglobin 11.3 g/dL (11.5-15.4)
[2017-03-09 06:37] LABS: BUN/Creatinine Ratio 18 (6-26); Blood Urea Nitrogen 13 mg/dL (7-20); Calcium 7.9 mg/dL (8.6-10.8); Carbon Dioxide 23 mEq/L (19-29); Chloride 105 mEq/L (98-109); Glucose 186 mg/dL (70-99); Osmolality,Calculated 283 (280-300); Potassium 3.1 mEq/L (3.5-4.5); Sodium 134 mEq/L (136-145); eGFR For African Americans > 60 (> 60); eGFR For Non-African Americans > 60 (> 60)
[2017-03-09] MEDS: *HR* Rivaroxaban 10 MG TABLET PO SCH (08:31)
[2017-03-09] MEDS: Insulin LISPRO 300 UNITS/3 ML VIAL SQ SCH ×4 (08:31→22:04)
[2017-03-09] MEDS: Hydrocortisone 10 MG TABLET PO SCH (08:31)
[2017-03-09] MEDS: Aspirin 81 MG TAB.CHEW PO SCH (08:32)
[2017-03-09] MEDS: Gabapentin 100 MG CAPSULE PO SCH ×3 (08:32→22:05)
[2017-03-09] MEDS: *HR* HYDROcodone/Acet 5/325 mg TABLET PO PRN ×3 (08:50→22:21)
[2017-03-09] MEDS ORDERED: Potassium Chloride 40 MEQ, Lidocaine 1% 2 ML in D5% in Water 500 ML IVPB ONE (10:04)
[2017-03-09] MEDS: Furosemide 40 MG TABLET PO SCH ×2 (11:03→17:16)
--- NOTE | 2017-03-09 14:30 | Internal Med Progress Note ---
<Harpreet Wagoner - Last Filed: 03/09/17 14:26> Date of Encounter: 03/09/17 Time of Encounter: 14:26 - Assessment and plan (1) Severe sepsis Current Visit: Yes Status: Acute Assessment and plan: - Likely secondary to urinary tract infection, hospital acquired pneumonia - In Emergency room patient was tachycardic at 110, blood cell of 14.3, lactic acid of 5.1 - Urine culture grew Escherichia coli sensitive to cephalosporins. - Lactic acid remains elevated but improved from 2.9, currently 2.6, tachycardia has resolved, afebrile. - Discontinue cefepime and azithromycin to ceftriaxone. Will change to Omnicef upon discharge - Blood Cultures negative 3 days (2) Lactic acidosis Current Visit: Yes Status: Acute Assessment and plan: - Secondary to infection, likely urinary tract infection versus pneumonia - Down trended from 2.9 to 2.6 - repeat Lactic acid ordered. (3) UTI (urinary tract infection) Current Visit: Yes Status: Acute Assessment and plan: - History of recurrent urinary tract infection secondary to chronic indwelling catheter - Urinalysis in the emergency department showed nitrites, bacteria, white blood cells - History of multidrug resistant Escherichia coli in previous UTIs - Rocephin changed from cefepime given sensitivity of urine culture, grew Escherichia coli Qualifiers: Urinary tract infection type: catheter-associated UTI Indwelling urinary catheter type: indwelling urethral catheter Encounter type: subsequent encounter Qualified Code(s): T83.511D - Infection and inflammatory reaction due to indwelling urethral catheter, subsequent encounter; N39.0 - Urinary tract infection, site not specified (4) Pneumonia Current Visit: Yes Status: Acute Assessment and plan: - Chest x-ray report is currently of consolidations consistent with pneumonia - Changed to Rocephin to Ceftin in, day 3 Qualifiers: Pneumonia type: due to unspecified organism Laterality: right Lung location: middle lobe of lung Qualified Code(s): J18.1 - Lobar pneumonia, unspecified organism (5) Generalized weakness Current Visit: No Status: Chronic Assessment and plan: - Chronic issue for which she has been seen at rehabilitation - PT/OT - Physical therapy recommended SNF/ECF on discharge. oncology social worker is working on [facility] (6) DVT prophylaxis Current Visit: No Status: Acute Assessment and plan: - Xarelto - Time Spent With Patient 25 - 35 minutes - Subjective Interval history: Patient was seen and examined at bedside this morning. She states she is doing well this morning, with no complaints of fever, chills, nausea, vomiting, dysuria, cough, shortness of breath, chest pain. She is complaining this morning of bilateral lower extremity edema which she normally takes Lasix at home for however she is not beginning upon hospital admission. She also has begun to notice blistering on her left thigh and states that she only gets this when she is fluid overloaded. - Constitutional Vitals: Temp Pulse Resp BP Pulse Ox 97.6 F 65 18 95/60 95 03/09/17 11:01 03/09/17 11:01 03/09/17 11:01 03/09/17 11:01 03/09/17 11:01 General appearance: Present: A&O X 3, morbidly obese Exam: Gen.: Vitals noted. No acute distress. AAOx3 HEENT: PERRL/EOMI, oropharynx clear, Normocephalic, atraumatic Neck: Supple. No adenopathy. Cardiac: RRR, no murmur, +S1/S2 Pulmonary: CTA bilaterally, no wheezes, rales or rhonchi, equal chest expansion Abdomen: Mild abdominal tenderness in left lower quadrant, suprapubic region. soft, BS noted, no guarding Back: Nontender throughout. MSK: ROM intact, no joint swelling noted Extremities: Medial thigh with blistering containing serous fluid. 1+ pretibial edema bilaterally, nontender calf, no cyanosis or clubbing Neuro: A&Ox3, moves all extremities, no focal deficits Psych: Appropriate mood and behavior Internal Medicine: Result - Labs CBC & Chem 7: 03/09/17 06:11 03/09/17 06:11 Labs: Short CBC 03/09/17 Range/Units 06:11 WBC 11.1 (4.3-11.1) K/mcL Hgb 11.3 L D (11.5-15.4) g/dL Hct 35.5 (35.3-44.9) % Plt Count 209 (140-400) K/mcL BMP 03/09/17 06:11 Sodium 134 L Potassium 3.1 L Chloride 105 Carbon Dioxide 23 BUN 13 Creatinine 0.74 Glucose 186 H Calcium 7.9 L Consult Discharge Plan - Plan Referrals: Carolyn Reardon DO [Primary Care Provider] - (web request 03/09/2017) <Tod Piper - Last Filed: 03/09/17 18:30> Date of Encounter: 03/09/17 - Assessment and plan (1) Severe sepsis Current Visit: Yes Status: Acute (2) Dependent rubor Current Visit: Yes Status: Acute (3) UTI (urinary tract infection) Current Visit: Yes Status: Acute Qualifiers: Urinary tract infection type: catheter-associated UTI Indwelling urinary catheter type: indwelling urethral catheter Encounter type: subsequent encounter Qualified Code(s): T83.511D - Infection and inflammatory reaction due to indwelling urethral catheter, subsequent encounter; N39.0 - Urinary tract infection, site not specified (4) Lactic acidosis Current Visit: Yes Status: Acute (5) Pneumonia Current Visit: Yes Status: Acute Qualifiers: Pneumonia type: due to unspecified organism Laterality: right Lung location: middle lobe of lung Qualified Code(s): J18.1 - Lobar pneumonia, unspecified organism (6) Atrial fibrillation Current Visit: No Status: Chronic Qualifiers: Atrial fibrillation type: paroxysmal Qualified Code(s): I48.0 - Paroxysmal atrial fibrillation (7) CHF (congestive heart failure) Current Visit: No Status: Chronic Qualifiers: Congestive heart failure type: diastolic Congestive heart failure chronicity: chronic Qualified Code(s): I50.32 - Chronic diastolic (congestive ) heart failure (8) Generalized weakness Current Visit: No Status: Chronic (9) Diabetes Current Visit: No Status: Chronic Qualifiers: Diabetes mellitus type: type 2 Diabetes mellitus complication status: with hyperglycemia Diabetes mellitus superintendent container terminal insulin use: without superintendent container terminal use Qualified Code(s): E11.65 - Type 2 diabetes mellitus with hyperglycemia (10) Venous stasis dermatitis of both lower extremities Current Visit: Yes Status: Chronic - Time Spent With Patient Greater than 35 minutes (My time today) - Constitutional Vitals: Temp Pulse Resp BP Pulse Ox 97.6 F 75 18 103/66 96 03/09/17 15:25 03/09/17 15:25 03/09/17 15:25 03/09/17 15:25 03/09/17 15:25 Internal Medicine: Result - Labs CBC & Chem 7: 03/09/17 06:11 03/09/17 06:11 Labs: Short CBC 03/09/17 Range/Units 06:11 WBC 11.1 (4.3-11.1) K/mcL Hgb 11.3 L D (11.5-15.4) g/dL Hct 35.5 (35.3-44.9) % Plt Count 209 (140-400) K/mcL BMP 03/09/17 06:11 Sodium 134 L Potassium 3.1 L Chloride 105 Carbon Dioxide 23 BUN 13 Creatinine 0.74 Glucose 186 H Calcium 7.9 L - Attending Attestation I examined this patient and my medical decision-making was reviewed with the Resident Physician on 03/09/17. I agree with the documented findings, disposition and treatment plan as described except to the extent set forth below. Ms. Golden is currently admitted with sepsis related to UTI and pneumonia. She remains moderate to high risk due to risk for worsening respiratory status and infection. Ms. Golden is still having lower extremity swelling. Concerned about areas of "purple" when her legs are dangling. Appetite has improved. No fever or chills. No diarrhea. Exam Alert. Comfortable Mucus membranes dry Heart reg No wheeze Abd soft Some blisters noted anterior L thigh in area of tape 1+ edema noted I/P 1. E. coli UTI - on IV abx 2. Dependent rubor 3. Pneumonia Further diagnoses and plan as above.
[2017-03-09] MEDS: Azithromycin 500 MG in D5% in Water 250 ML IVPB SCH (15:46)
[2017-03-10] MEDS: 0.9 % Sodium Chloride 1,000 ML IVC SCH (02:22)
[2017-03-10 04:55] LABS: Hematocrit 39.9 % (35.3-44.9); Mean Corpuscular HGB Conc 32.8 g/dL (31.6-35.5); Mean Corpuscular Hemoglobin 27.9 pg (28.0-33.3); Mean Corpuscular Volume 84.9 fL (83.0-100.0); Mean Platelet Volume 10.9 fL (9.4-12.4); Platelet Count 215 K/mcL (140-400); Red Cell Distribution Width 13.1 % (11.5-14.5)
[2017-03-10 05:02] LABS: Hemoglobin 13.1 g/dL (11.5-15.4)
[2017-03-10 05:08] LABS: BUN/Creatinine Ratio 15 (6-26); Blood Urea Nitrogen 11 mg/dL (7-20); Calcium 8.1 mg/dL (8.6-10.8); Carbon Dioxide 25 mEq/L (19-29); Chloride 104 mEq/L (98-109); Glucose 123 mg/dL (70-99); Osmolality,Calculated 281 (280-300); Potassium 3.5 mEq/L (3.5-4.5); Sodium 135 mEq/L (136-145); eGFR For African Americans > 60 (> 60); eGFR For Non-African Americans > 60 (> 60)
--- NOTE | 2017-03-10 08:52 | Discharge Summary ---
<AshlynHarpreet bledsoe - Last Filed: 03/10/17 15:30> Date of Encounter: 03/10/17 Time of Encounter: 08:30 - Discharge Diagnosis (1) Severe sepsis Priority: Primary Status: Resolved (2) Lactic acidosis Priority: Secondary Status: Acute (3) UTI (urinary tract infection) Priority: Secondary Status: Acute Qualifiers: Urinary tract infection type: catheter-associated UTI Indwelling urinary catheter type: indwelling urethral catheter Encounter type: subsequent encounter Qualified Code(s): T83.511D - Infection and inflammatory reaction due to indwelling urethral catheter, subsequent encounter; N39.0 - Urinary tract infection, site not specified (4) Pneumonia Priority: Secondary Status: Acute Qualifiers: Pneumonia type: due to unspecified organism Laterality: right Lung location: middle lobe of lung Qualified Code(s): J18.1 - Lobar pneumonia, unspecified organism (5) Generalized weakness Priority: Secondary Status: Chronic (6) DVT prophylaxis Priority: Secondary Status: Acute - Discharge Medications Prescriptions: Cefdinir [Omnicef] 300 mg PO BID #4 capsule Home Medications: Aspirin 81 mg PO DAILY 12/12/16 [History] Cetirizine HCl [All Day Allergy] 10 mg PO DAILY 12/12/16 [History] Metoprolol Tartrate 25 mg PO BID 12/12/16 [History] Montelukast Sodium [Singulair] 10 mg PO DAILY 12/12/16 [History] Multivitamin [Multi-Day Vitamins] 1 tab PO DAILY 12/12/16 [History] Nitroglycerin [Nitrostat] 0.4 mg SL AD PRN MDD 3 DOSES 12/12/16 [History] Rivaroxaban [Xarelto] 20 mg PO DAILY 12/12/16 [History] Fluticasone Propionate Nasal [Flonase] 50 mcg NS DAILY 12/13/16 [History] Furosemide [Lasix] 40 mg PO BID 12/13/16 [History] Potassium Chloride [K-Tab ER] 20 meq PO DAILY 12/13/16 [History] hydrOXYzine HCl [Hydroxyzine HCl] 25 mg PO Q8H PRN 12/13/16 [History] Acetaminophen [Tylenol] 650 mg PO Q6HR PRN #0 tablet 12/28/16 [Rx] HYDROcodone/Acet 5/325 mg [[place] 5-325 mg] 1 tab PO Q6H PRN #10 tablet 12/28/16 [Rx] Hydrocortisone [Cortef] 12.5 mg PO DAILY tablet 12/28/16 [Rx] Magnesium Oxide [Mag-Ox] 400 mg PO BID tablet 12/28/16 [Rx] Omeprazole [PriLOSEC] 20 mg PO DAILY@0630 capsule. 12/28/16 [Rx] Sennosides/Docusate Sodium [Senna Plus] 2 each PO BID PRN #0 tablet 12/28/16 [Rx ] Sertraline [Zoloft] 50 mg PO DAILY tablet 12/28/16 [Rx] Albuterol Neb [Proventil Neb] 2.5 mg IH Q4H PRN 03/07/17 [History] DiphenhydraMINE [Benadryl] 25 mg PO Q6H PRN 03/07/17 [History] Gabapentin [Neurontin] 200 mg PO TID 03/07/17 [History] Loperamide [Imodium] 4 mg PO AD PRN MDD 8MG 03/07/17 [History] Cefdinir [Omnicef] 300 mg PO BID #4 capsule 03/10/17 [Rx] Allergies/Adverse Reactions: Allergies levofloxacin [From Levaquin] Allergy (Verified 09/28/16 08:50) Hives Penicillins Allergy (Verified 09/28/16 08:50) Blister prednisone Allergy (Verified 09/28/16 08:50) See Comments all over swelling Sulfa (Sulfonamide Antibiotics) Allergy (Verified 09/28/16 08:50) Hives Banana Adverse Reaction (Severe, Verified 09/28/16 08:50) Blister egg Adverse Reaction (Severe, Verified 09/28/16 08:50) Throat swelling nitrofurantoin [From Macrobid] Adverse Reaction (Severe, Verified 09/28/16 08:50 ) Bruising on arms Date of admission: 03/07/17 18:29 Primary care physician: Azam Fields Consults: 03/08/17 11:36 Consult to Occupational Therapy [CONS] Routine Comment: Evaluate, develop and implement POC Reason for Consult: evaluate and plan Consult to Physical Therapy [CONS] Routine Comment: Evaluate, develop and implement POC Reason for Consult: Evaluate and plan 03/09/17 10:32 Consult to Wound Care [CONS] Routine Reason for Consult: patient has blisters on left thigh along with pressure ulcers to right and left buttock Time Notified: 10:34 Call Completed: Yes 03/09/17 13:32 Consult to Outbound Sales Professional [CONS] Routine Reason for SW Consult: ecf placement Discharging clinician: Harpreet Wagoner Anticipated date of discharge: 03/10/17 - Patient Status Disposition: Home Health Service Condition: Good Functional capacity at discharge: uses cane/walker Overall status at discharge: patient is progressing back to baseline - Discharge Instructions Follow Up With: Carolyn Reardon DO [Primary Care Provider] - (web request 03/09/2017) Additional Instructions: Please follow up with her primary care physician regarding your lower extremity swelling, frequent catheter infections, generalized weakness. - Diet and Activity Activity: as per physical therapy, increase activity as tolerated, resume usual activities as tolerated Diet: advance to your usual diet Hospital course: Ms. Golden is a 67 year old female with past medical history of atrial fibrillation, CHF, asthma, arthritis, COPD, diabetes, GERD, indwelling Sanchez catheter, anxiety, depression, panic disorder who presents to [facility]'s department with a complaint of nausea and vomiting for several days. She is coming from a [facility] for chronic disability. He has a chronic indwelling Sanchez catheter in place and states that she frequently gets urinary tract infections with a history of antibiotic resistant Escherichia coli infections. She denied any other symptoms including fevers, chills, cough , congestion, headache, vision changes, chest pain, shortness of breath. In the ED, vital signs were within normal limits. Laboratory results are significant for elevated with blood cell count of 14.3, lactic acid of 4.0, AST of 65, magnesium of 1.5. Urinalysis revealed protein, large blood, positive for nitrites, large amount of leukocyte esterase and too many white blood cells count microscopically, and yeast. Subsequent culture revealed pansensitive Escherichia coli. Abdominal CT done in [place] was significant for large amount stool present in the distal colon, nonobstructing right nephrolithiasis measuring 1.1 cm, hepatic steatosis. Chest x-ray revealed right perihilar airspace disease compatible with pneumonia. Shortly after presenting to emergency room, patient spiked a temperature of 100.0, and a heart rate of 106. She was admitted to medicine service for treatment of severe sepsis secondary to suspected urinary tract infection versus pneumonia. While on the medicine floor patient was started on cefepime and azithromycin for coverage of antibiotic resistance Escherichia coli from previous UTIs. She received normal saline and she remained afebrile for the following days the admission. Her tachycardia resolved. Blood cultures were negative for growth. Patient's antibiotic was changed to ceftriaxone following urine culture showing Escherichia coli that was pansensitive. She was transitioned to oral Omnicef upon discharge. She states her symptoms have much improved, she denies any symptoms of fevers, chills, abdominal pain, dysuria. Her lactic acidosis continued to downtrend during hospital stay, most recently 2.2. Of note, during admission she did start to experience some lower extremity edema and serous filled blisters which she states she normally gets when she is fluid overloaded. She was restarted on her home medications of Lasix 40 mg twice a day with good results of symptoms. She was seen by physical therapy who recommended a detention facility upon discharge, however patient was unable to obtain placement due to excessive time of stay in the past. She would be discharged home on hospice home health in medically stable condition and instructed to follow-up with her primary care physician, and to complete her course of antibiotics. - Time Spent with Patient Total time spent providing and/or coordinating discharge services: 40 minutes - Constitutional Vitals: Temp Pulse Resp BP Pulse Ox 98.4 F 82 18 117/81 100 03/10/17 07:42 03/10/17 07:42 03/10/17 07:42 03/10/17 07:42 03/10/17 07:42 General appearance: Present: A&O X 3, morbidly obese Exam: Gen.: Vitals noted. No acute distress. AAOx3. Morbidly obese HEENT: PERRL/EOMI, oropharynx clear, Normocephalic, atraumatic Neck: Supple. No adenopathy. Cardiac: RRR, no murmur, +S1/S2 Pulmonary: CTA bilaterally, no wheezes, rales or rhonchi, equal chest expansion Abdomen: Mild abdominal tenderness in left lower quadrant, suprapubic region. soft, BS noted, no guarding Back: Nontender throughout. MSK: ROM intact, no joint swelling noted. Generalized weakness secondary to deconditioning Extremities: Medial thigh with blistering containing serous fluid. 1+ pretibial edema bilaterally, nontender calf, no cyanosis or clubbing Neuro: A&Ox3, moves all extremities, no focal deficits Psych: Appropriate mood and behavior <Tod Piper Kadi - Last Filed: 03/10/17 17:20> Date of Encounter: 03/10/17 - Discharge Diagnosis (1) Severe sepsis Priority: Primary Status: Resolved (2) UTI (urinary tract infection) Status: Acute Qualifiers: Urinary tract infection type: catheter-associated UTI Indwelling urinary catheter type: indwelling urethral catheter Encounter type: subsequent encounter Qualified Code(s): T83.511D - Infection and inflammatory reaction due to indwelling urethral catheter, subsequent encounter; N39.0 - Urinary tract infection, site not specified (3) Pneumonia Status: Acute Qualifiers: Pneumonia type: due to unspecified organism Laterality: right Lung location: middle lobe of lung Qualified Code(s): J18.1 - Lobar pneumonia, unspecified organism (4) Lactic acidosis Status: Acute (5) Atrial fibrillation Priority: Secondary Status: Chronic Qualifiers: Atrial fibrillation type: paroxysmal Qualified Code(s): I48.0 - Paroxysmal atrial fibrillation (6) CHF (congestive heart failure) Priority: Secondary Status: Chronic Qualifiers: Congestive heart failure type: diastolic Congestive heart failure chronicity: chronic Qualified Code(s): I50.32 - Chronic diastolic (congestive ) heart failure (7) Generalized weakness Status: Chronic (8) Diabetes Priority: Secondary Status: Chronic Qualifiers: Diabetes mellitus type: type 2 Diabetes mellitus complication status: with hyperglycemia Diabetes mellitus mcc insulin use: without long chain beamer use Qualified Code(s): E11.65 - Type 2 diabetes mellitus with hyperglycemia (9) Venous stasis dermatitis of both lower extremities Priority: Secondary Status: Chronic (10) Dependent rubor Priority: Secondary Status: Acute Date of admission: 03/07/17 18:29 Primary care physician: Azam Fields Consults: 03/08/17 11:36 Consult to Occupational Therapy [CONS] Routine Comment: Evaluate, develop and implement POC Reason for Consult: evaluate and plan Consult to Physical Therapy [CONS] Routine Comment: Evaluate, develop and implement POC Reason for Consult: Evaluate and plan 03/09/17 10:32 Consult to Wound Care [CONS] Routine Reason for Consult: patient has blisters on left thigh along with pressure ulcers to right and left buttock Time Notified: 10:34 Call Completed: Yes 03/09/17 13:32 Consult to Outbound Sales Professional [CONS] Routine Reason for SW Consult: ecf placement Hospital course: Ms. Golden is a 67 year old female - Time Spent with Patient Total time spent providing and/or coordinating discharge services: 39min - Constitutional Vitals: Temp Pulse Resp BP Pulse Ox 98.3 F 70 16 125/71 98 03/10/17 11:36 03/10/17 11:36 03/10/17 11:36 03/10/17 11:36 03/10/17 11:36 - Attending Attestation I examined this patient and my medical decision-making was reviewed with the Resident Physician on 03/10/17. I agree with the documented findings, disposition and treatment plan as described except to the extent set forth below. Ms. Golden has been admitted for severe sepsis related to CAUTI that was present on admission and pneumonia. She has prior hx of ESBL E coli in her urine but did not have this organism this admission. She is now afebrile with stable vitals and returning to baseline status. Exam Alert. Comfortable Mucus membranes moist Heart reg No wheeze Edema unchanged Plan D/C home with [facility] as before Complete abx course.
[2017-03-10] MEDS: Insulin LISPRO 300 UNITS/3 ML VIAL SQ SCH ×2 (09:00→11:59)
[2017-03-10] MEDS: Gabapentin 100 MG CAPSULE PO SCH ×2 (09:01→14:49)
[2017-03-10] MEDS: *HR* Rivaroxaban 10 MG TABLET PO SCH (09:01)
[2017-03-10] MEDS: Hydrocortisone 10 MG TABLET PO SCH (09:02)
[2017-03-10] MEDS: Aspirin 81 MG TAB.CHEW PO SCH (09:02)
[2017-03-10] MEDS: Furosemide 40 MG TABLET PO SCH (09:02)
--- NOTE | 2017-03-10 09:12 | Physician Discharge Referral ---
<Driss Shook - Last Filed: 03/10/17 09:10> Home Health/Hosp Referral Info Transfer to: Hospice ([facility]) Provider in Charge Post Discharge: Cord Maker - Diagnosis (1) Severe sepsis Priority: Primary Status: Acute (2) UTI (urinary tract infection) Priority: Primary Status: Acute (3) Pneumonia Priority: Primary Status: Acute (4) Lactic acidosis Priority: Secondary Status: Acute (5) Generalized weakness Priority: Secondary Status: Chronic - Respiratory Orders Smoking Cessation: Smoking cessation has been advised. For more information, call the [place] Tobacco Quit Line at 2-304-WFKY-NOW. - Diet/Nutrition Diet/Nutrition Orders: No Concentrated Sweets (Diabetic diet) - Services Needed Following services are medically necessary services: Nursing, Physical Therapy, Occupational Therapy - Transfer Medications Prescriptions: Cefdinir [Omnicef] 300 mg PO BID #4 capsule Home Medications: Aspirin 81 mg PO DAILY 12/12/16 [History] Cetirizine HCl [All Day Allergy] 10 mg PO DAILY 12/12/16 [History] Metoprolol Tartrate 25 mg PO BID 12/12/16 [History] Montelukast Sodium [Singulair] 10 mg PO DAILY 12/12/16 [History] Multivitamin [Multi-Day Vitamins] 1 tab PO DAILY 12/12/16 [History] Nitroglycerin [Nitrostat] 0.4 mg SL AD PRN MDD 3 DOSES 12/12/16 [History] Rivaroxaban [Xarelto] 20 mg PO DAILY 12/12/16 [History] Fluticasone Propionate Nasal [Flonase] 50 mcg NS DAILY 12/13/16 [History] Furosemide [Lasix] 40 mg PO BID 12/13/16 [History] Potassium Chloride [K-Tab ER] 20 meq PO DAILY 12/13/16 [History] hydrOXYzine HCl [Hydroxyzine HCl] 25 mg PO Q8H PRN 12/13/16 [History] Acetaminophen [Tylenol] 650 mg PO Q6HR PRN #0 tablet 12/28/16 [Rx] HYDROcodone/Acet 5/325 mg [[place] 5-325 mg] 1 tab PO Q6H PRN #10 tablet 12/28/16 [Rx] Hydrocortisone [Cortef] 12.5 mg PO DAILY tablet 12/28/16 [Rx] Magnesium Oxide [Mag-Ox] 400 mg PO BID tablet 12/28/16 [Rx] Omeprazole [PriLOSEC] 20 mg PO DAILY@0630 capsule. 12/28/16 [Rx] Sennosides/Docusate Sodium [Senna Plus] 2 each PO BID PRN #0 tablet 12/28/16 [Rx ] Sertraline [Zoloft] 50 mg PO DAILY tablet 12/28/16 [Rx] Albuterol Neb [Proventil Neb] 2.5 mg IH Q4H PRN 03/07/17 [History] DiphenhydraMINE [Benadryl] 25 mg PO Q6H PRN 03/07/17 [History] Gabapentin [Neurontin] 200 mg PO TID 03/07/17 [History] Loperamide [Imodium] 4 mg PO AD PRN MDD 8MG 03/07/17 [History] Cefdinir [Omnicef] 300 mg PO BID #4 capsule 03/10/17 [Rx] Allergies/Adverse Reactions: Allergies levofloxacin [From Levaquin] Allergy (Verified 09/28/16 08:50) Hives Penicillins Allergy (Verified 09/28/16 08:50) Blister prednisone Allergy (Verified 09/28/16 08:50) See Comments all over swelling Sulfa (Sulfonamide Antibiotics) Allergy (Verified 09/28/16 08:50) Hives Banana Adverse Reaction (Severe, Verified 09/28/16 08:50) Blister egg Adverse Reaction (Severe, Verified 09/28/16 08:50) Throat swelling nitrofurantoin [From Macrobid] Adverse Reaction (Severe, Verified 09/28/16 08:50 ) Bruising on arms Certification: Further, I certify that my clinical findings support that this patient is homebound (i.e. absences from home require considerable and taxing effort and are for medical reasons or anabaptist services or infrequently or short duration when for other reasons) because: Homebound Reason: Patient requires assistance of a person or device to safely leave home Attestation: My signature below is to certify that this patient is under my care and that I, or nurse practitioner, or a physician's staff assistant working with me, has a face-to -face encounter with this patient. <Tod Piper - Last Filed: 03/10/17 12:52> - Diagnosis (1) Severe sepsis Status: Acute (2) Dependent rubor Status: Acute (3) UTI (urinary tract infection) Status: Acute (4) Lactic acidosis Status: Acute (5) Pneumonia Status: Acute (6) Atrial fibrillation Status: Chronic (7) CHF (congestive heart failure) Status: Chronic (8) Generalized weakness Status: Chronic (9) Diabetes Status: Chronic (10) Venous stasis dermatitis of both lower extremities Status: Chronic - Respiratory Orders Smoking Cessation: Smoking cessation has been advised. For more information, call the [place] Tobacco Quit Line at 2-482-FWHX-NOW. Certification: Further, I certify that my clinical findings support that this patient is homebound (i.e. absences from home require considerable and taxing effort and are for medical reasons or anabaptist services or infrequently or short duration when for other reasons) because: Attestation: My signature below is to certify that this patient is under my care and that I, or nurse practitioner, or a physician's staff assistant working with me, has a face-to -face encounter with this patient.
[2017-03-10 11:43] VITALS: BP 125/71
[2017-03-10] MEDS ORDERED: Azithromycin 250 MG TABLET PO SCH (15:00)
[2017-03-11] MEDS ORDERED: Azithromycin 250 MG TABLET PO SCH (15:00)
== END 2017-03-10 15:14 | disposition home health service (06) | DRG 698 ==
LOC: EMEROO 13:26 → 2ANU 13:26 → SUATTDRO 18:29
PROVIDERS: ADMIT Internal Medicine; ATTEND Internal Medicine

== ENCOUNTER 2017-06-20 20:22 | Inpatient (IN) ==
[~2017-06-20 20:22] MED LIST: Meropenem 1,000 MG in Water for inj. (sterile) 10 ML IVP ONE
--- NOTE | 2017-06-20 20:26 | Emergency Department Note ---
Disposition Clinical Impression: Nausea and vomiting, Dehydration, UTI (urinary tract infection) Disposition: Admitted As Inpatient Condition: Fair General Adult HPI - General Chief complaint: ED Nausea/Vomiting/Diarrhea Stated complaint: n/v Time Seen by Provider: 06/20/17 20:25 - Related Data Home Medications Medication Instructions Recorded Confirmed Furosemide [Lasix] 40 mg PO BID PRN 12/13/16 06/20/17 hydrOXYzine HCl [Hydroxyzine HCl] 25 mg PO Q8H PRN 12/13/16 06/20/17 Ondansetron HCl [Zofran] 4 mg PO Q6H PRN 06/20/17 06/20/17 Promethazine [Phenergan] 25 mg PO Q6HR PRN 06/20/17 06/20/17 Previous Rx's Medication Instructions Recorded HYDROcodone/Acet 5/325 mg [[place] 1 tab PO Q6H PRN #10 tablet 12/28/16 5-325 mg] Allergies Allergy/AdvReac Type Severity Reaction Status Date / Time levofloxacin [From Levaquin] Allergy Hives Verified 09/28/16 08:50 Penicillins Allergy Blister Verified 09/28/16 08:50 prednisone Allergy See Verified 09/28/16 08:50 Comments Sulfa (Sulfonamide Allergy Hives Verified 09/28/16 08:50 Antibiotics) Banana AdvReac Severe Blister Verified 09/28/16 08:50 egg AdvReac Severe Throat Verified 09/28/16 08:50 swelling nitrofurantoin AdvReac Severe Bruising Verified 09/28/16 08:50 [From Macrobid] on arms Past Medical History - Past Medical History Medical history: Reports: arthritis, asthma, atrial fibrillation, CHF, COPD, diabetes, GERD, kidney stones, other Surgical history: Reports: angioplasty/stent, hysterectomy Psychiatric history: Reports: anxiety, depression, panic disorder - Social History Smoking Status: Never smoker Smokeless Tobacco Status: No Alcohol use: Reports: none Drug use: Reports: none Course Vital Signs Temperature 97.4 F L 06/20/17 20:24 Pulse Rate 74 06/20/17 20:24 Respiratory Rate 18 06/20/17 20:24 Blood Pressure 124/85 06/20/17 20:24 O2 Sat by Pulse Oximetry 98 06/20/17 20:24 Temperature 98.8 F 06/21/17 10:53 Pulse Rate 78 06/21/17 10:53 Respiratory Rate 18 06/21/17 10:53 Blood Pressure 114/74 06/21/17 10:53 O2 Sat by Pulse Oximetry 93 06/21/17 10:53 Oxygen Delivery Oxygen Delivery Room Air Medical Decision Making - Lab Data Result diagrams: 06/20/17 21:24 06/20/17 21:24 Lab Results 06/20/17 06/20/17 06/20/17 Range/Units 20:47 21:24 21:24 WBC 6.6 (4.3-11.1) K/mcL RBC 4.82 (3.82-4.97) M/mcL Hgb 14.3 (11.5-15.4) g/dL Hct 42.5 (35.3-44.9) % MCV 88.2 (83.0-100.0) fL MCH 29.7 (28.0-33.3) pg MCHC 33.6 (31.6-35.5) g/dL RDW 14.5 (11.5-14.5) % Plt Count 196 (140-400) K/mcL MPV 10.1 (9.4-12.4) fL Immature Gran % 0.2 (0-4) % Seg Neutrophils % 55.5 % Lymphocytes % 29.1 % Monocytes % 7.0 % Eosinophils % 7.7 % Basophils % 0.5 % Neutrophils # 3.7 (1.6-8.9) K/mcL Lymphocytes # 1.9 (0.6-4.6) K/mcL Monocytes # 0.5 (0.0-1.3) K/mcL Eosinophils # 0.5 (0.0-0.6) K/mcL Basophils # 0.0 (0.0-0.2) K/mcL Sodium 141 (136-145) mEq/L Potassium 3.5 (3.5-4.5) mEq/L Chloride 109 (98-109) mEq/L Carbon Dioxide 22 (19-29) mEq/L BUN 9 (7-20) mg/dL Creatinine 0.65 (0.57-1.11) mg/dL Est GFR ( Amer) > 60 (> 60) Est GFR (Non-Af Amer) > 60 (> 60) BUN/Creatinine Ratio 14 (6-26) Glucose 112 H (70-99) mg/dL Calculated Osmolality 291 (280-300) Lactic Acid (0.5-2.2) mmol/L Calcium 8.8 (8.6-10.8) mg/dL Lipase 11 (8-78) Units/L Urine Color Dark Yellow (Yellow) Urine Clarity Cloudy A (Clear) Urine pH 7.5 (5.0-8.0) pH Units Ur Specific [place] 1.025 (1.010-1.025) Urine Protein >=300 H (Neg-Trace) mg/dL Urine Glucose (UA) Normal (Normal) mg/dL Urine Ketones Negative (Negative) mg/dL Urine Blood Large H (Negative) Urine Nitrite Positive A (Negative) Urine Bilirubin Small H (Negative) Urine Urobilinogen 4.0 H (Normal) mg/dL Ur Leukocyte Esterase Moderate H (Negative) Urine Microscopic RBC TNTC H (0-3) per hpf Urine Microscopic WBC TNTC H (0-3) per hpf Ur Squamous Epith Cells Few (None-Few) per lpf Urine Bacteria Many H (None-Few) per hpf Ur Culture Indicated? YES A (NO) 06/20/17 Range/Units 21:24 WBC (4.3-11.1) K/mcL RBC (3.82-4.97) M/mcL Hgb (11.5-15.4) g/dL Hct (35.3-44.9) % MCV (83.0-100.0) fL MCH (28.0-33.3) pg MCHC (31.6-35.5) g/dL RDW (11.5-14.5) % Plt Count (140-400) K/mcL MPV (9.4-12.4) fL Immature Gran % (0-4) % Seg Neutrophils % % Lymphocytes % % Monocytes % % Eosinophils % % Basophils % % Neutrophils # (1.6-8.9) K/mcL Lymphocytes # (0.6-4.6) K/mcL Monocytes # (0.0-1.3) K/mcL Eosinophils # (0.0-0.6) K/mcL Basophils # (0.0-0.2) K/mcL Sodium (136-145) mEq/L Potassium (3.5-4.5) mEq/L Chloride (98-109) mEq/L Carbon Dioxide (19-29) mEq/L BUN (7-20) mg/dL Creatinine (0.57-1.11) mg/dL Est GFR ( Amer) (> 60) Est GFR (Non-Af Amer) (> 60) BUN/Creatinine Ratio (6-26) Glucose (70-99) mg/dL Calculated Osmolality (280-300) Lactic Acid 1.9 (0.5-2.2) mmol/L Calcium (8.6-10.8) mg/dL Lipase (8-78) Units/L Urine Color (Yellow) Urine Clarity (Clear) Urine pH (5.0-8.0) pH Units Ur Specific [place] (1.010-1.025) Urine Protein (Neg-Trace) mg/dL Urine Glucose (UA) (Normal) mg/dL Urine Ketones (Negative) mg/dL Urine Blood (Negative) Urine Nitrite (Negative) Urine Bilirubin (Negative) Urine Urobilinogen (Normal) mg/dL Ur Leukocyte Esterase (Negative) Urine Microscopic RBC (0-3) per hpf Urine Microscopic WBC (0-3) per hpf Ur Squamous Epith Cells (None-Few) per lpf Urine Bacteria (None-Few) per hpf Ur Culture Indicated? (NO) Attestation Statement - Attestation Attestation: I examined this patient and my medical decision-making was reviewed with the Resident Physician. I agree with the documented findings, disposition and treatment plan as described except to the extent set forth below. [id number] time provided Patient arrives from home by EMS. She is debilitated at baseline. Nonambulatory. Indwelling Sanchez catheter. She complains of nausea and vomiting. Lips are cracked and dry on exam 21:45: Patient with a UTI. She is debilitated and we will request admission to the medicine service. Review of previous cultures indicates Escherichia coli in February
[2017-06-20] MEDS ORDERED: Ondansetron 4 MG/2 ML VIAL IVP ONE (20:29)
[2017-06-20] MEDS ORDERED: 0.9 % Sodium Chloride 1,000 ML IVC ONE (20:39)
--- NOTE | 2017-06-20 20:40 | Emergency Department Note ---
Disposition Clinical Impression: Dehydration Nausea and vomiting Qualifiers: Vomiting type: unspecified Vomiting Intractability: non-intractable Qualified Code(s): R11.2 - Nausea with vomiting, unspecified UTI (urinary tract infection) Qualifiers: Urinary tract infection type: catheter-associated UTI Indwelling urinary catheter type: indwelling urethral catheter Encounter type: initial encounter Qualified Code(s): T83.511A - Infection and inflammatory reaction due to indwelling urethral catheter, initial encounter; N39.0 - Urinary tract infection , site not specified; N39.0 - Urinary tract infection, site not specified Disposition: Admitted As Inpatient Condition: Fair Referrals: Carolyn Reardon DO [Primary Care Provider] - Forms: ED Satisfaction Letter Time of Disposition: 22:00 General Adult HPI - General Chief complaint: ED Nausea/Vomiting/Diarrhea Stated complaint: n/v Time Seen by Provider: 06/20/17 20:25 Nursing Notes Reviewed: Yes Vital Signs Reviewed: Yes - History of Present Illness HPI Narrative: Ms. Golden, a 67-year-old female, presents from home via EMS for evaluation of nausea and vomiting. Onset one week ago without improvement. Refractory to her home Phenergan. Patient has associated suprapubic abdominal pain and chills. Vomiting described as clear, nonbilious, no hematochezia. Patient has a chronic indwelling urinary catheter changed 3 weeks ago secondary to immobility. PMH: Hypertension, hyperlipidemia, atrial fibrillation on 0 L2, diastolic CHF, diabetes type 2 not insulin-dependent. - Related Data Home Medications Medication Instructions Recorded Confirmed Aspirin 81 mg PO DAILY 12/12/16 03/07/17 Cetirizine HCl [All Day Allergy] 10 mg PO DAILY 12/12/16 03/07/17 Metoprolol Tartrate 25 mg PO BID 12/12/16 03/07/17 Montelukast Sodium [Singulair] 10 mg PO DAILY 12/12/16 03/07/17 Multivitamin [Multi-Day Vitamins] 1 tab PO DAILY 12/12/16 03/07/17 Nitroglycerin [Nitrostat] 0.4 mg SL AD PRN MDD 3 DOSES 12/12/16 03/07/17 Rivaroxaban [Xarelto] 20 mg PO DAILY 12/12/16 03/07/17 Fluticasone Propionate Nasal 50 mcg NS DAILY 12/13/16 03/07/17 [Flonase] Furosemide [Lasix] 40 mg PO BID 12/13/16 03/07/17 Potassium Chloride [K-Tab ER] 20 meq PO DAILY 12/13/16 03/07/17 hydrOXYzine HCl [Hydroxyzine HCl] 25 mg PO Q8H PRN 12/13/16 03/07/17 Albuterol Neb [Proventil Neb] 2.5 mg IH Q4H PRN 03/07/17 03/07/17 DiphenhydraMINE [Benadryl] 25 mg PO Q6H PRN 03/07/17 03/07/17 Gabapentin [Neurontin] 200 mg PO TID 03/07/17 03/07/17 Loperamide [Imodium] 4 mg PO AD PRN MDD 8MG 03/07/17 03/07/17 Previous Rx's Medication Instructions Recorded Acetaminophen [Tylenol] 650 mg PO Q6HR PRN #0 tablet 12/28/16 HYDROcodone/Acet 5/325 mg [[place] 1 tab PO Q6H PRN #10 tablet 12/28/16 5-325 mg] Hydrocortisone [Cortef] 12.5 mg PO DAILY tablet 12/28/16 Magnesium Oxide [Mag-Ox] 400 mg PO BID tablet 12/28/16 Omeprazole [PriLOSEC] 20 mg PO DAILY@0630 capsule. 12/28/16 Sennosides/Docusate Sodium [[place] 2 each PO BID PRN #0 tablet 12/28/16 Plus] Sertraline [Zoloft] 50 mg PO DAILY tablet 12/28/16 Cefdinir [Omnicef] 300 mg PO BID #4 capsule 03/10/17 Allergies Allergy/AdvReac Type Severity Reaction Status Date / Time levofloxacin [From Levaquin] Allergy Hives Verified 09/28/16 08:50 Penicillins Allergy Blister Verified 09/28/16 08:50 prednisone Allergy See Verified 09/28/16 08:50 Comments Sulfa (Sulfonamide Allergy Hives Verified 09/28/16 08:50 Antibiotics) Banana AdvReac Severe Blister Verified 09/28/16 08:50 egg AdvReac Severe Throat Verified 09/28/16 08:50 swelling nitrofurantoin AdvReac Severe Bruising Verified 09/28/16 08:50 [From Macrobid] on arms All systems ED: reviewed and negative except as stated. Past Medical History - Past Medical History Medical history: Reports: arthritis, asthma, atrial fibrillation, CHF, COPD, diabetes, GERD, kidney stones, other Surgical history: Reports: angioplasty/stent, hysterectomy Psychiatric history: Reports: anxiety, depression, panic disorder - Social History Smoking Status: Never smoker Smokeless Tobacco Status: No Alcohol use: Reports: none Drug use: Reports: none Physical Exam Vital Signs Reviewed General: Patient is alert, oriented, and in no acute distress. HEENT: No facial asymmetry. Head is normocephalic and atraumatic. Oral mucosa dry. Lips cracked. Trachea midline. Cardiovascular: Heart regular rate and rhythm without clicks, rubs, gallops, or murmurs. No JVD. PMI nondisplaced. Trace bilateral pedal edema. Bilateral radial pulses 2/4 equal. Respiratory: Symmetric chest rise with poor respiratory effort. Bilateral breath sounds are clear without wheezing, crackles, or rhonchi. Abdomen: Morbidly obese. Bowel sounds present normoactive x-4 quadrants. Abdomen is soft, nondistended. Suprapubic and epigastric tenderness. Unable to assess her gadolinium nightly secondary to patient's body habitus Neuro: GCS 15. Psych: Patient's affect is appropriate for situation. Course Course Narrative: Patient has a history of urosepsis and dehydration for which she was last admitted in February. Patient clinically appears dehydrated with poor skin turgor, dry mucous membranes, cracked lips. Will gently rehydrate given her history of diastolic CHF. Her urine is dark and cola like in the Sanchez bag. Will change her [place] to get clean urine specimen. Clinically suspicious for UTI; patient's urine is foul-smelling. Patient is SIRS (-) on intake vitals. Patient's urine specimen collected from a clean/newly placed Sanchez. It is concerning for UTI which is consistent with patient's clinical presentation. Patient has a history of multiple drug resistance. Will begin meropenem empiric antibiotic with culture pending. I discussed the patient with the admitting hospitalist, Dr. Alejandro, who agrees to accept the patient for continued evaluation and management. Vital Signs Temperature 97.4 F L 06/20/17 20:24 Pulse Rate 74 06/20/17 20:24 Respiratory Rate 18 06/20/17 20:24 Blood Pressure 124/85 06/20/17 20:24 O2 Sat by Pulse Oximetry 98 06/20/17 20:24 Temperature 97.4 F L 06/20/17 20:24 Pulse Rate 79 06/20/17 21:15 Respiratory Rate 18 06/20/17 20:24 Blood Pressure 115/71 06/20/17 21:15 O2 Sat by Pulse Oximetry 99 06/20/17 21:15 Oxygen Delivery Oxygen Delivery Room Air Medical Decision Making - Lab Data Result diagrams: 06/20/17 21:24 06/20/17 21:24 Lab Results 06/20/17 06/20/17 06/20/17 Range/Units 20:47 21:24 21:24 WBC 6.6 (4.3-11.1) K/mcL RBC 4.82 (3.82-4.97) M/mcL Hgb 14.3 (11.5-15.4) g/dL Hct 42.5 (35.3-44.9) % MCV 88.2 (83.0-100.0) fL MCH 29.7 (28.0-33.3) pg MCHC 33.6 (31.6-35.5) g/dL RDW 14.5 (11.5-14.5) % Plt Count 196 (140-400) K/mcL MPV 10.1 (9.4-12.4) fL Immature Gran % 0.2 (0-4) % Seg Neutrophils % 55.5 % Lymphocytes % 29.1 % Monocytes % 7.0 % Eosinophils % 7.7 % Basophils % 0.5 % Neutrophils # 3.7 (1.6-8.9) K/mcL Lymphocytes # 1.9 (0.6-4.6) K/mcL Monocytes # 0.5 (0.0-1.3) K/mcL Eosinophils # 0.5 (0.0-0.6) K/mcL Basophils # 0.0 (0.0-0.2) K/mcL Sodium 141 (136-145) mEq/L Potassium 3.5 (3.5-4.5) mEq/L Chloride 109 (98-109) mEq/L Carbon Dioxide 22 (19-29) mEq/L BUN 9 (7-20) mg/dL Creatinine 0.65 (0.57-1.11) mg/dL Est GFR ( Amer) > 60 (> 60) Est GFR (Non-Af Amer) > 60 (> 60) BUN/Creatinine Ratio 14 (6-26) Glucose 112 H (70-99) mg/dL Calculated Osmolality 291 (280-300) Lactic Acid (0.5-2.2) mmol/L Calcium 8.8 (8.6-10.8) mg/dL Lipase 11 (8-78) Units/L Urine Color Dark Yellow (Yellow) Urine Clarity Cloudy A (Clear) Urine pH 7.5 (5.0-8.0) pH Units Ur Specific [place] 1.025 (1.010-1.025) Urine Protein >=300 H (Neg-Trace) mg/dL Urine Glucose (UA) Normal (Normal) mg/dL Urine Ketones Negative (Negative) mg/dL Urine Blood Large H (Negative) Urine Nitrite Positive A (Negative) Urine Bilirubin Small H (Negative) Urine Urobilinogen 4.0 H (Normal) mg/dL Ur Leukocyte Esterase Moderate H (Negative) Urine Microscopic RBC TNTC H (0-3) per hpf Urine Microscopic WBC TNTC H (0-3) per hpf Ur Squamous Epith Cells Few (None-Few) per lpf Urine Bacteria Many H (None-Few) per hpf Ur Culture Indicated? YES A (NO) 06/20/17 Range/Units 21:24 WBC (4.3-11.1) K/mcL RBC (3.82-4.97) M/mcL Hgb (11.5-15.4) g/dL Hct (35.3-44.9) % MCV (83.0-100.0) fL MCH (28.0-33.3) pg MCHC (31.6-35.5) g/dL RDW (11.5-14.5) % Plt Count (140-400) K/mcL MPV (9.4-12.4) fL Immature Gran % (0-4) % Seg Neutrophils % % Lymphocytes % % Monocytes % % Eosinophils % % Basophils % % Neutrophils # (1.6-8.9) K/mcL Lymphocytes # (0.6-4.6) K/mcL Monocytes # (0.0-1.3) K/mcL Eosinophils # (0.0-0.6) K/mcL Basophils # (0.0-0.2) K/mcL Sodium (136-145) mEq/L Potassium (3.5-4.5) mEq/L Chloride (98-109) mEq/L Carbon Dioxide (19-29) mEq/L BUN (7-20) mg/dL Creatinine (0.57-1.11) mg/dL Est GFR ( Amer) (> 60) Est GFR (Non-Af Amer) (> 60) BUN/Creatinine Ratio (6-26) Glucose (70-99) mg/dL Calculated Osmolality (280-300) Lactic Acid 1.9 (0.5-2.2) mmol/L Calcium (8.6-10.8) mg/dL Lipase (8-78) Units/L Urine Color (Yellow) Urine Clarity (Clear) Urine pH (5.0-8.0) pH Units Ur Specific [place] (1.010-1.025) Urine Protein (Neg-Trace) mg/dL Urine Glucose (UA) (Normal) mg/dL Urine Ketones (Negative) mg/dL Urine Blood (Negative) Urine Nitrite (Negative) Urine Bilirubin (Negative) Urine Urobilinogen (Normal) mg/dL Ur Leukocyte Esterase (Negative) Urine Microscopic RBC (0-3) per hpf Urine Microscopic WBC (0-3) per hpf Ur Squamous Epith Cells (None-Few) per lpf Urine Bacteria (None-Few) per hpf Ur Culture Indicated? (NO)
[2017-06-20 21:13] LABS: Bilirubin,Urine Small (Negative); Blood,Urine Large (Negative); Clarity,Urine Cloudy (Clear); Glucose,Urine (UA) Normal (Normal); Ketones,Urine Negative (Negative); Leukocyte Esterase,Urine Moderate (Negative); Nitrite,Urine Positive (Negative); PH,Urine 7.5 pH Units (5.0-8.0); Protein,Urine >=300 mg/dL (Neg-Trace); Specific Gravity,Urine 1.025 (1.010-1.025)
[2017-06-20 21:14] LABS: Color,Urine Dark Yellow (Yellow)
[2017-06-20 21:19] LABS: RBC,Urine TNTC per hpf (0-3); WBC,Urine TNTC per hpf (0-3)
[2017-06-20 21:20] LABS: Bacteria,Urine Many per hpf (None-Few); Squamous Epithelial Cell,Urine Few per lpf (None-Few)
[2017-06-20 21:30] LABS: Basophils % 0.5 %; Eosinophils # 0.5 K/mcL (0.0-0.6); Eosinophils % 7.7 %; Hematocrit 42.5 % (35.3-44.9); Hemoglobin 14.3 g/dL (11.5-15.4); Immature Granulocytes % 0.2 % (0-4); Lymphocytes # 1.9 K/mcL (0.6-4.6); Lymphocytes % 29.1 %; Mean Corpuscular HGB Conc 33.6 g/dL (31.6-35.5); Mean Corpuscular Hemoglobin 29.7 pg (28.0-33.3); Mean Corpuscular Volume 88.2 fL (83.0-100.0); Mean Platelet Volume 10.1 fL (9.4-12.4); Monocytes # 0.5 K/mcL (0.0-1.3); Neutrophils # 3.7 K/mcL (1.6-8.9); Platelet Count 196 K/mcL (140-400); Red Blood Count 4.82 M/mcL (3.82-4.97); Red Cell Distribution Width 14.5 % (11.5-14.5); Segmented Neutrophils % 55.5 %
[2017-06-20 21:46] LABS: BUN/Creatinine Ratio 14 (6-26); Blood Urea Nitrogen 9 mg/dL (7-20); Calcium 8.8 mg/dL (8.6-10.8); Carbon Dioxide 22 mEq/L (19-29); Chloride 109 mEq/L (98-109); Glucose 112 mg/dL (70-99); Lipase 11 Units/L (8-78); Osmolality,Calculated 291 (280-300); Potassium 3.5 mEq/L (3.5-4.5); Sodium 141 mEq/L (136-145); eGFR For African Americans > 60 (> 60); eGFR For Non-African Americans > 60 (> 60)
[2017-06-20] MEDS ORDERED: Meropenem 1,000 MG in 0.9 % Sodium Chloride Mini Bag 100 ML IVPB STA (21:46)
[2017-06-21] MEDS ORDERED: *HR* Morphine 2 MG/ML SYRINGE IVP PRN (04:50)
[2017-06-21] MEDS ORDERED: Naloxone 0.4 MG/ML INJ IVP PRN (05:40)
[2017-06-21] MEDS ORDERED: Acetaminophen 325 MG TABLET PO PRN (05:40)
[2017-06-21] MEDS ORDERED: Dextrose Gel 15 GM PO PRN ×2 (05:46)
[2017-06-21] MEDS ORDERED: Furosemide 40 MG TABLET PO PRN (05:46)
[2017-06-21] MEDS ORDERED: *HR* Dextrose 50 % in Water (Syg) 50 ML SYRINGE IVP PRN (05:46)
[2017-06-21] MEDS ORDERED: hydrOXYzine pamoate 25 MG CAPSULE PO PRN (05:46)
[2017-06-21] MEDS ORDERED: D5% in Water 1,000 ML IVC PRN (05:46)
--- NOTE | 2017-06-21 05:55 | Internal Med History&Physical ---
Date of Encounter: 06/21/17 Time of Encounter: 05:50 Assessment and Plan (1) UTI (urinary tract infection) due to urinary indwelling catheter Current visit: Yes Status: Acute 1. Urine culture collected. 2. Patient received Meropenem in ER. Will continue it and follow cultures. 3. Recommend trying to remove catheter and trying to use bedside commode versus Depends diapers. 4. Patient counseled on the need to avoid chronic indwelling catheter because of her recurrent UTI. Qualifiers: Indwelling urinary catheter type: indwelling urethral catheter Encounter type: initial encounter Qualified Code(s): T83.511A - Infection and inflammatory reaction due to indwelling urethral catheter, initial encounter; N39.0 - Urinary tract infection, site not specified; N39.0 - Urinary tract infection, site not specified (2) Stomatitis Current visit: Yes Status: Chronic 1. Will try oral acyclovir. Patient denies history of oral herpes. 2. Monitor clinically and consult ID if necessary. (3) Physical deconditioning Current visit: Yes Status: Acute 1. Consult PT/OT and social research assistant. (4) Diabetes Current visit: No Status: Chronic 1. Patient not currently on any diabetic meds. She has lost a significant amount of weight in recent months. 2. Will monitor glucose and treat with SSI for now. Qualifiers: Diabetes mellitus type: type 2 Diabetes mellitus complication status: with hyperglycemia Diabetes mellitus terminologist insulin use: without terminologist use Qualified Code(s): E11.65 - Type 2 diabetes mellitus with hyperglycemia (5) DVT prophylaxis Current visit: Yes Status: Acute 1. Heparin SQ. Internal Medicine - H&P: HPI Chief complaint: nausea, vomtinig, UTI Admitted From: Emergency Dept Plans for Post Hospital Care: Transfer Senior Living Facility History of present illness: Ms. Golden is a 67 year old female who presents the ER tonight with complaints of protracted nausea, vomiting, and UTI. She has a chronic indwelling catheter and has had recurrent UTI. She has been essentially bedbound since this summer from deconditiong, and she has been dependent upon her catheter for her urination problems. She was in inpatient rehabilitation and was discharged this summer after her insurance ran out. She was slowly making progress, but she regressed and has been bedbound since then. She would like to return to inpatient rehabilitation so she can start ambulating and take care of herself at home. She denies any fevers, chills, cough, chest pain, shortness of breath. She has not been able to care for herself because of her bedbound state. She has been dependent upon home health aides and home health care nursing since this summer. She also complains of a chronic stomatitis for the last 3 months. She denies any gingival or oral involvement. She only has involvement of her lips. Past Med Surg Social Fam HX - Past Medical History Attestation: Yes The following information was validated with the patient. Source: patient, old records reviewed Medical history: arthritis, asthma, atrial fibrillation, CHF, COPD, diabetes, GERD, kidney stones Psychiatric history: anxiety, depression, panic disorder - Past Surgical History Surgical History: angioplasty/stent, hysterectomy - Social History Smoking Status: Never smoker Smokeless Tobacco Status: No Alcohol use: none Drug use: none Current living situation: Home Activity Level: Bed bound Recent Out of Country Travel Within the Last 8 Weeks: No - Family History Brother Living Status: Still Living Hx Family Cardiac Disorders: Yes (HTN) Hx Family Endocrine Disorder: Yes (Diabetes) Mother Living Status: Hx Family Cardiac Disorders: Yes (HTN) Hx Family Endocrine Disorder: Yes (Diabetes) Father Living Status: Hx Family Cardiac Disorders: Yes (CABG x3 HTN diabetes) Hx Family Respiratory Disorders: No Hx Family Cancer: No Hx Family GI Disorders: No Hx Family Endocrine Disorder: Yes Hx Family Neuromuscular Disorders: No Hx Family Neurologic Disorders: No Hx Family HEENT Disorders: No Hx Family Autoimmune Disorders: No Internal Medicine - H&P: Meds Furosemide [Lasix] 40 mg PO BID PRN 12/13/16 [History] hydrOXYzine HCl [Hydroxyzine HCl] 25 mg PO Q8H PRN 12/13/16 [History] HYDROcodone/Acet 5/325 mg [[place] 5-325 mg] 1 tab PO Q6H PRN #10 tablet 12/28/16 [Rx] Ondansetron HCl [Zofran] 4 mg PO Q6H PRN 06/20/17 [History] Promethazine [Phenergan] 25 mg PO Q6HR PRN 06/20/17 [History] 3 Allergy/AdvReac Type Severity Reaction Status Date / Time levofloxacin [From Levaquin] Allergy Hives Verified 09/28/16 08:50 Penicillins Allergy Blister Verified 09/28/16 08:50 prednisone Allergy See Verified 09/28/16 08:50 Comments Sulfa (Sulfonamide Allergy Hives Verified 09/28/16 08:50 Antibiotics) Banana AdvReac Severe Blister Verified 09/28/16 08:50 egg AdvReac Severe Throat Verified 09/28/16 08:50 swelling nitrofurantoin AdvReac Severe Bruising Verified 09/28/16 08:50 [From Macrobid] on arms - Constitutional Constitutional: malaise, weakness, weight loss, no chills, no fever(s) - EENT Eyes: no blurry vision, no change in vision Ears: no ear pain, no tinnitus Nose, mouth and throat: no nasal congestion, no nasal discharge, no sore throat , no throat swelling Additional comments: + crusting lips -- chronic - Cardiovascular Cardiovascular ROS IM: no chest pain, no diaphoresis, no dyspnea, no palpitations - Respiratory Respiratory: no cough, no hemoptysis, no chest congestion, no excessive phlegm production - Gastrointestinal Gastrointestinal: nausea, vomiting, no abdominal pain, no diarrhea, no hematemesis, no hematochezia, no melena - Genitourinary Genitourinary: dysuria, pelvic pain, no flank pain - Musculoskeletal Musculoskeletal ROS IM: atrophy, muscle cramps, muscle weakness, no joint swelling - Integumentary Integumentary IM: no rash, no jaundice - Neurological Neurological ROS: no dizziness, no focal weakness, no headache(s) - Psychiatric Psychiatric: anxiety, depression - Endocrine Endocrine IM: no polydipsia, no polyuria - Hematologic/Lymphatic Hematologic/Lymphatic: no easy bruising, no lymphadenopathy - Allergic/Immunologic Allergic/Immunologic: no wheezing, no GI upset with certain foods - Constitutional Vitals: Temp Pulse Resp BP Pulse Ox 98.7 F 86 18 97/65 94 06/21/17 03:21 06/21/17 03:21 06/21/17 03:21 06/21/17 03:21 06/21/17 03:21 General appearance: Present: cooperative, A&O X 3, pleasant, no acute distress - Head Head exam: Present: atraumatic, normal inspection - Eye Eye exam: Present: EOMI, normal appearance, PERRL. Absent: scleral icterus Pupils: Present: normal accommodation - ENT ENT exam: Present: mucous membranes moist Additional comments: lips crusting; no oral or gingival lesions or thrush appreciated - Neck Neck exam general surgery: Present: full ROM, supple. Absent: lymphadenopathy, tenderness, nuchal rigidity - Respiratory Respiratory exam: Present: CTAB. Absent: chest wall tenderness, rales, respiratory distress, rhonchi, wheezes - Cardiovascular Cardiovascular exam: Present: distant heart sounds, irregular rhythm. Absent: diastolic murmur, JVD, systolic murmur - GI/Abdominal GI/Abdominal exam: Present: normal bowel sounds, soft. Absent: hepatomegaly, mass, splenomegaly, tenderness - Extremities Exam Extremities exam: Present: normal capillary refill, pedal edema (non-pitting edema ), warm, radial pulses palpable and symmetrical. Absent: calf tenderness , joint swelling, tenderness - Back Exam Back exam: Absent: CVA tenderness (L), CVA tenderness (R) - Neurological Exam Neurological exam: Present: alert, CN II-XII intact, oriented X3 - Psychiatric Psychiatric exam: Present: anxious, depressed. Absent: homicidal ideation, suicidal ideation - Skin Skin exam: Present: dry, warm. Absent: rash Internal Med - H&P Results - Labs CBC & Chem 7: 06/20/17 21:24 06/20/17 21:24
[2017-06-21] MEDS ORDERED: Meropenem 1,000 MG in Water for inj. (sterile) 10 ML IVP SCH (06:00)
[2017-06-21] MEDS: *HR* Heparin 5,000 UNIT/ML VIAL SQ SCH ×3 (06:22→22:18)
[2017-06-21 06:31] LABS: Hemoglobin A1C 4.8 %
[2017-06-21] MEDS: Insulin LISPRO 300 UNITS/3 ML VIAL SQ SCH ×3 (09:07→16:29)
[2017-06-21] MEDS: Meropenem 1,000 MG in Water for inj. (sterile) 10 ML IVP SCH ×2 (09:28→22:35)
[2017-06-21] MEDS: Acyclovir 200 MG CAPSULE PO SCH ×3 (09:30→22:17)
[2017-06-21] MEDS: *HR* Promethazine 25 MG/ML VIAL IVP PRN (09:42)
--- NOTE | 2017-06-21 16:28 | Event Note ---
Date of Encounter: 06/21/17 Time of Encounter: 16:24 Chart reviewed and patient does not meet inpatient criteria at this time. Order placed for observation status 1. UTI: With chronic, indwelling Sanchez catheter. 02/2017 urine culture with Escherichia coli, multidrug resistant, sensitive to meropenem. Continue meropenem at this time. Urine culture pending narrow ATB as culture finalizes.
[2017-06-21] MEDS: *HR* HYDROcodone/Acet 5/325 mg TABLET PO PRN (22:18)
[2017-06-22 04:22] LABS: Hematocrit 39.9 % (35.3-44.9); Hemoglobin 13.3 g/dL (11.5-15.4); Mean Corpuscular HGB Conc 33.3 g/dL (31.6-35.5); Mean Corpuscular Hemoglobin 29.7 pg (28.0-33.3); Mean Corpuscular Volume 89.1 fL (83.0-100.0); Platelet Count 196 K/mcL (140-400); Red Blood Count 4.48 M/mcL (3.82-4.97); Red Cell Distribution Width 14.7 % (11.5-14.5)
[2017-06-22 04:31] LABS: BUN/Creatinine Ratio 15 (6-26); Blood Urea Nitrogen 12 mg/dL (7-20); Calcium 8.4 mg/dL (8.6-10.8); Carbon Dioxide 23 mEq/L (19-29); Chloride 108 mEq/L (98-109); Glucose 127 mg/dL (70-99); Osmolality,Calculated 291 (280-300); Potassium 3.8 mEq/L (3.5-4.5); Sodium 140 mEq/L (136-145); eGFR For African Americans > 60 (> 60); eGFR For Non-African Americans > 60 (> 60)
[2017-06-22] MEDS: *HR* HYDROcodone/Acet 5/325 mg TABLET PO PRN ×3 (05:20→22:55)
[2017-06-22] MEDS: *HR* Heparin 5,000 UNIT/ML VIAL SQ SCH ×3 (05:20→22:54)
[2017-06-22] MEDS: Meropenem 1,000 MG in Water for inj. (sterile) 10 ML IVP SCH ×2 (09:31→22:54)
[2017-06-22] MEDS: Acyclovir 200 MG CAPSULE PO SCH ×3 (09:31→22:55)
[2017-06-22] MEDS: Insulin LISPRO 300 UNITS/3 ML VIAL SQ SCH ×3 (09:31→17:24)
[2017-06-22] MEDS: *HR* Promethazine 25 MG/ML VIAL IVP PRN (09:32)
--- NOTE | 2017-06-22 09:46 | Urology - Consult Note ---
Date of Encounter: 06/22/17 Time of Encounter: 09:44 - Assessment and Plan (1) Gross hematuria Current Visit: Yes Status: Acute Assessment and plan: Most likely secondary to urinary tract infection. Encourage fluids as well as IV antibiotics at this time. We will continue to follow along to document resolution (2) Acute cystitis with hematuria Current Visit: Yes Status: Acute Assessment and plan: Continue current antibiotic. Patient has a known history of multidrug resistant urinary tract infections. Urology CN:HPI Consult date: 06/22/17 Reason for consult Urology: Gross Hematuria Requesting physician: Roberta Butcher History of present illness: Aixa is a 67-year-old female with a history of recent admission secondary to nausea vomiting and urinary tract infection. Patient is known to the urology service for history of recurrent urinary tract infections as well as recurrent bladder irritation. Patient has had bladder instillations on the past. She states that she had a indwelling urethral catheter placed this past September secondary to deconditioning and inability to walk. Patient was found this morning to have gross hematuria. A urine culture is positive for gram-negative. Past Med Surg Social Fam HX - Past Medical History Medical history: arthritis, asthma, atrial fibrillation, CHF, COPD, diabetes, GERD, kidney stones, other Psychiatric history: anxiety, depression, panic disorder - Past Surgical History Surgical History: angioplasty/stent, hysterectomy - Social History Smoking Status: Never smoker Smokeless Tobacco Status: No Alcohol use: none Drug use: none - Family History Brother Living Status: Still Living Hx Family Cardiac Disorders: Yes (HTN) Hx Family Endocrine Disorder: Yes (Diabetes) Mother Living Status: Hx Family Cardiac Disorders: Yes (HTN) Hx Family Endocrine Disorder: Yes (Diabetes) Father Living Status: Hx Family Cardiac Disorders: Yes (CABG x3 HTN diabetes) Hx Family Respiratory Disorders: No Hx Family Cancer: No Hx Family GI Disorders: No Hx Family Endocrine Disorder: Yes Hx Family Neuromuscular Disorders: No Hx Family Neurologic Disorders: No Hx Family HEENT Disorders: No Hx Family Autoimmune Disorders: No Medications and Allergies Furosemide [Lasix] 40 mg PO BID PRN 12/13/16 [History] hydrOXYzine HCl [Hydroxyzine HCl] 25 mg PO Q8H PRN 12/13/16 [History] HYDROcodone/Acet 5/325 mg [[place] 5-325 mg] 1 tab PO Q6H PRN #10 tablet 12/28/16 [Rx] Ondansetron HCl [Zofran] 4 mg PO Q6H PRN 06/20/17 [History] Promethazine [Phenergan] 25 mg PO Q6HR PRN 06/20/17 [History] 3 Allergy/AdvReac Type Severity Reaction Status Date / Time levofloxacin [From Levaquin] Allergy Hives Verified 09/28/16 08:50 Penicillins Allergy Blister Verified 09/28/16 08:50 prednisone Allergy See Verified 09/28/16 08:50 Comments Sulfa (Sulfonamide Allergy Hives Verified 09/28/16 08:50 Antibiotics) Banana AdvReac Severe Blister Verified 09/28/16 08:50 egg AdvReac Severe Throat Verified 09/28/16 08:50 swelling nitrofurantoin AdvReac Severe Bruising Verified 09/28/16 08:50 [From Macrobid] on arms Review of Systems - Constitutional no chills - EENT Nose, mouth and throat: no dizziness - Cardiovascular no chest pain - Respiratory no cough - Gastrointestinal abdominal pain - Musculoskeletal no back pain - Integumentary no erythema - Neurological no as per HPI Exam Initial Vital Signs Temp Pulse Resp BP Pulse Ox 97.4 F L 74 18 124/85 98 06/20/17 20:24 06/20/17 20:24 06/20/17 20:24 06/20/17 20:24 06/20/17 20:24 - General physical appearance Present: well developed - Eyes Present: PERRL - Respiratory Present: normal respiratory effort - Cardiovascular Cardiovascular exam IM: RRR - Integumentary Present: no rash - Neurologic Present: normal coordination - Musculoskeletal Present: other (sig LE edema) Urology Results - Labs 06/22/17 04:11 06/22/17 04:11 Abnormal lab results RDW 14.7 % (11.5-14.5) H 06/22/17 04:11 Glucose 127 mg/dL (70-99) H 06/22/17 04:11 POC Glucose 121 (58-89) H 06/22/17 07:03 Calcium 8.4 mg/dL (8.6-10.8) L 06/22/17 04:11 Magnesium 1.5 mg/dL (1.6-2.6) L 06/22/17 04:11 Urine Clarity Cloudy (Clear) A 06/20/17 20:47 Urine Protein >=300 mg/dL (Neg-Trace) H 06/20/17 20:47 Urine Blood Large (Negative) H 06/20/17 20:47 Urine Nitrite Positive (Negative) A 06/20/17 20:47 Urine Bilirubin Small (Negative) H 06/20/17 20:47 Urine Urobilinogen 4.0 mg/dL (Normal) H 06/20/17 20:47 Ur Leukocyte Esterase Moderate (Negative) H 06/20/17 20:47 Urine Microscopic RBC TNTC per hpf (0-3) H 06/20/17 20:47 Urine Microscopic WBC TNTC per hpf (0-3) H 06/20/17 20:47 Urine Bacteria Many per hpf (None-Few) H 06/20/17 20:47 Ur Culture Indicated? YES (NO) A 06/20/17 20:47 Diabetes panel 06/22/17 Range/Units 04:11 Sodium 140 (136-145) mEq/L Potassium 3.8 (3.5-4.5) mEq/L Chloride 108 (98-109) mEq/L Carbon Dioxide 23 (19-29) mEq/L BUN 12 (7-20) mg/dL Creatinine 0.81 (0.57-1.11) mg/dL Glucose 127 H (70-99) mg/dL Calcium 8.4 L (8.6-10.8) mg/dL Calcium panel 06/22/17 Range/Units 04:11 Calcium 8.4 L (8.6-10.8) mg/dL Pituitary panel 06/22/17 Range/Units 04:11 Sodium 140 (136-145) mEq/L Potassium 3.8 (3.5-4.5) mEq/L Chloride 108 (98-109) mEq/L Carbon Dioxide 23 (19-29) mEq/L BUN 12 (7-20) mg/dL Creatinine 0.81 (0.57-1.11) mg/dL Glucose 127 H (70-99) mg/dL Calcium 8.4 L (8.6-10.8) mg/dL Adrenal panel 06/22/17 Range/Units 04:11 Sodium 140 (136-145) mEq/L Potassium 3.8 (3.5-4.5) mEq/L Chloride 108 (98-109) mEq/L Carbon Dioxide 23 (19-29) mEq/L BUN 12 (7-20) mg/dL Creatinine 0.81 (0.57-1.11) mg/dL Glucose 127 H (70-99) mg/dL Calcium 8.4 L (8.6-10.8) mg/dL All other labs normal. Consult Discharge Plan - Plan Referrals: Carolyn Reardon DO [Primary Care Provider] -
--- NOTE | 2017-06-22 12:16 | Internal Med Progress Note ---
Date of Encounter: 06/22/17 Time of Encounter: 08:00 - Assessment and plan (1) UTI (urinary tract infection) due to urinary indwelling catheter Current Visit: Yes Status: Acute Assessment and plan: Aixa Golden is a 67 y/o female with PMH recurrent UTIs with chronic Go, A. fib, diabetes and lower extremity weakness with inability to walk presented to [facility] on 2016 with complaints of nausea and vomiting. She was placed in observation status for further work-up and treatment. 1. UTI: recurrent, secondary to go. UA nitrites, leuk esterase and pyuria. Hx multidrug-resistant UTI; previous cultures sensitive to meropenem. Continue meropenem started on arrival. Urine culture pending. Narrow Hgb as culture finalizes. 2. Hematuria: With gross hematuria on exam. Urology consulted and suspects secondary to UTI. Continue treating UTI, Hgb stable. 3. Atrial fibrillation: History of A. fib with RVR during past hospitalizations. Per chart review, patient should be on amiodarone and Xarelto however she is not on either one. Patient said she self discontinued Xarelto because it made her sick. She does not know if she has been taking the amiodarone. Awaiting home medication list to finalize medication reconciliation. EKG pending. Currently rate controlled. Hold on anticoagulation with hematuria. May need to consult cardiology for further clarification. 4. Diabetes: per hx. Holding home oral hypoglycemics. SSI. Monitor blood sugar and titrate PRN 5. DVT prophylaxis: SCDs with hematuria Qualifiers: Indwelling urinary catheter type: indwelling urethral catheter Encounter type: initial encounter Qualified Code(s): T83.511A - Infection and inflammatory reaction due to indwelling urethral catheter, initial encounter; N39.0 - Urinary tract infection, site not specified; N39.0 - Urinary tract infection, site not specified (2) Morbid obesity Current Visit: No Status: Chronic (3) Atrial fibrillation with RVR Current Visit: No Status: Resolved (4) CAD (coronary artery disease) Current Visit: No Status: Chronic Qualifiers: Coronary Disease-Associated Artery/Lesion type: [place] artery [place] vs. transplanted heart: [place] heart Associated angina: angina presence unspecified Qualified Code(s): I25.10 - Atherosclerotic heart disease of [place] coronary artery without angina pectoris - Subjective Interval history: Seen and examined at bedside. Patient is new to me, information obtained from chart review and patient report. Patient says she feels better from when she came in. Although she is complaining of left leg pain and says she cannot bear weight on left leg. She tells me she has had a progressive decline in her overall health since July of last year with multiple hospitalizations and as stated ECF. She does not feel she is safe to go home and has no one to care for her there would like to return to [facility]. All my exam she complains of left lower leg pain and difficulty ambulating. - Constitutional Vitals: Temp Pulse Resp BP Pulse Ox 98.4 F 93 20 127/81 99 06/22/17 11:25 06/22/17 11:25 06/22/17 11:25 06/22/17 11:25 06/22/17 11:25 General appearance: Present: cooperative, A&O X 3, pleasant, no acute distress - Head Head exam: Present: atraumatic, normocephalic - Eye Eye exam: Present: PERRL, conjuntiva pink, sclera anicteric Pupils: Present: PERRL - ENT ENT exam: Present: mucous membranes dry - Neck Neck exam general surgery: Present: supple, trachea midline. Absent: lymphadenopathy - Respiratory Respiratory exam: Present: CTAB. Absent: accessory muscle use, rales, rhonchi, wheezes - Cardiovascular Cardiovascular exam: Present: RRR, +S1, +S2. Absent: diastolic murmur, gallop, rubs, systolic murmur - GI/Abdominal GI/Abdominal exam: Present: normal bowel sounds, soft, no peritoneal signs. Absent: distended, tenderness - Additional comments: go with hematuria - Extremities Exam Extremities exam: Present: warm, radial pulses palpable and symmetrical. Absent : calf tenderness, cyanotic, pedal edema - Neurological Exam Neurological exam: Present: CN II-XII intact, oriented X3, no focal deficits. Absent: pronater drift, facial droop, speech deficit - Skin Skin exam: Present: dry, intact Internal Medicine: Result - Labs CBC & Chem 7: 06/22/17 04:11 06/22/17 04:11 Labs: Short CBC 06/22/17 Range/Units 04:11 WBC 7.5 (4.3-11.1) K/mcL Hgb 13.3 (11.5-15.4) g/dL Hct 39.9 (35.3-44.9) % Plt Count 196 (140-400) K/mcL [facility] 06/22/17 04:11 Sodium 140 Potassium 3.8 Chloride 108 Carbon Dioxide 23 BUN 12 Creatinine 0.81 Glucose 127 H Calcium 8.4 L Consult Discharge Plan - Plan Referrals: Carolyn Reardon DO [Primary Care Provider] - 06/29/17 9:30 am
[2017-06-23] MEDS: *HR* Promethazine 25 MG/ML VIAL IVP PRN (06:38)
[2017-06-23 06:48] LABS: Hematocrit 38.7 % (35.3-44.9); Hemoglobin 12.8 g/dL (11.5-15.4); Mean Corpuscular HGB Conc 33.1 g/dL (31.6-35.5); Mean Corpuscular Hemoglobin 29.5 pg (28.0-33.3); Mean Corpuscular Volume 89.2 fL (83.0-100.0); Platelet Count 190 K/mcL (140-400); Red Blood Count 4.34 M/mcL (3.82-4.97); Red Cell Distribution Width 14.5 % (11.5-14.5)
[2017-06-23 07:06] LABS: BUN/Creatinine Ratio 16 (6-26); Blood Urea Nitrogen 12 mg/dL (7-20); Calcium 8.2 mg/dL (8.6-10.8); Carbon Dioxide 23 mEq/L (19-29); Chloride 106 mEq/L (98-109); Glucose 109 mg/dL (70-99); Osmolality,Calculated 286 (280-300); Potassium 3.6 mEq/L (3.5-4.5); Sodium 138 mEq/L (136-145); eGFR For African Americans > 60 (> 60); eGFR For Non-African Americans > 60 (> 60)
--- NOTE | 2017-06-23 08:22 | Urology Progress Note ---
Date of Encounter: 06/23/17 Time of Encounter: 08:21 - Assessment and Plan (1) Gross hematuria Current Visit: Yes Status: Acute Assessment and plan: unsure of color at this time. will reassess this afternoon. (2) Acute cystitis with hematuria Current Visit: Yes Status: Acute Assessment and plan: abx per primary team. Progress Note Narrative: patient see. catheter fell out last night. patient complaining about EPCDs cuffs. Objective Initial Vital Signs Temp Pulse Resp BP Pulse Ox 97.4 F L 74 18 124/85 98 06/20/17 20:24 06/20/17 20:24 06/20/17 20:24 06/20/17 20:24 06/20/17 20:24 - General physical appearance Present: well developed - Abdomen Present: soft - Labs 06/23/17 05:57 06/23/17 05:57 Diabetes panel 06/23/17 Range/Units 05:57 Sodium 138 (136-145) mEq/L Potassium 3.6 (3.5-4.5) mEq/L Chloride 106 (98-109) mEq/L Carbon Dioxide 23 (19-29) mEq/L BUN 12 (7-20) mg/dL Creatinine 0.73 (0.57-1.11) mg/dL Glucose 109 H (70-99) mg/dL Calcium 8.2 L (8.6-10.8) mg/dL Calcium panel 06/23/17 Range/Units 05:57 Calcium 8.2 L (8.6-10.8) mg/dL Pituitary panel 06/23/17 Range/Units 05:57 Sodium 138 (136-145) mEq/L Potassium 3.6 (3.5-4.5) mEq/L Chloride 106 (98-109) mEq/L Carbon Dioxide 23 (19-29) mEq/L BUN 12 (7-20) mg/dL Creatinine 0.73 (0.57-1.11) mg/dL Glucose 109 H (70-99) mg/dL Calcium 8.2 L (8.6-10.8) mg/dL Adrenal panel 06/23/17 Range/Units 05:57 Sodium 138 (136-145) mEq/L Potassium 3.6 (3.5-4.5) mEq/L Chloride 106 (98-109) mEq/L Carbon Dioxide 23 (19-29) mEq/L BUN 12 (7-20) mg/dL Creatinine 0.73 (0.57-1.11) mg/dL Glucose 109 H (70-99) mg/dL Calcium 8.2 L (8.6-10.8) mg/dL Consult Discharge Plan - Plan Referrals: Carolyn Reardon DO [Primary Care Provider] - 06/29/17 9:30 am
[2017-06-23] MEDS: Insulin LISPRO 300 UNITS/3 ML VIAL SQ SCH ×3 (08:48→17:07)
[2017-06-23] MEDS: Meropenem 1,000 MG in Water for inj. (sterile) 10 ML IVP SCH ×2 (09:11→21:07)
[2017-06-23] MEDS: Acyclovir 200 MG CAPSULE PO SCH ×3 (09:14→21:06)
[2017-06-23 12:47] LABS: Magnesium 1.7 mg/dL (1.6-2.6)
--- NOTE | 2017-06-23 14:21 | Internal Med Progress Note ---
Date of Encounter: 06/23/17 Time of Encounter: 14:21 - Assessment and plan (1) UTI (urinary tract infection) due to urinary indwelling catheter Current Visit: Yes Status: Acute Assessment and plan: Aixa Golden is a 67 y/o female with PMH recurrent UTIs with chronic Go, A. fib, diabetes and lower extremity weakness with inability to walk presented to [facility] on 2016 with complaints of nausea and vomiting. She was placed in observation status for further work-up and treatment. 1. UTI: recurrent, secondary to go. UA with nitrites, leuk esterase and pyuria. Hx multidrug-resistant UTI; previous cultures sensitive to meropenem. Continue meropenem started on arrival. Urine culture with Klebsiella. Narrow ATB as culture finalizes. 2. Hematuria: With gross hematuria on admission. Urology consulted and suspects secondary to UTI. Continue treating UTI. Monitor for recurrent hematuria with restarting anticoagulation as noted below. 3. Chronic go catheter: patient has had Og catheter since 09/2016. Patient says she has probably due to limited mobility. Go catheter inadvertently removed 06/23 evening. PVR with no significant urinary retention. Strongly recommend leaving only catheter out as she is prone to recurrent UTIs. 4. Atrial fibrillation: History of A. fib with RVR during past hospitalizations. Per last discharge summary (12/2016) patient should be on BB and Xarelto however she self discontinued Xarelto due to nausea. She is not sure if she is on metoprolol. Currently rate controlled. BP soft/borderline at times. Hold on BB. She is agreeable to restart Xarelto. 5. Diabetes: per hx. SSI. Hgb A1c 4.8%. SSI. Monitor blood sugar and titrate PRN 6. Physical deconditioning: with limited mobility. Evaluated by PT/OT who recommends SNF. Awaiting placement. 7. DVT prophylaxis: Xarelto Qualifiers: Indwelling urinary catheter type: indwelling urethral catheter Encounter type: initial encounter Qualified Code(s): T83.511A - Infection and inflammatory reaction due to indwelling urethral catheter, initial encounter; N39.0 - Urinary tract infection, site not specified; N39.0 - Urinary tract infection, site not specified (2) Morbid obesity Current Visit: No Status: Chronic (3) Atrial fibrillation with RVR Current Visit: No Status: Resolved (4) CAD (coronary artery disease) Current Visit: No Status: Chronic Qualifiers: Coronary Disease-Associated Artery/Lesion type: [place] artery [place] vs. transplanted heart: [place] heart Associated angina: angina presence unspecified Qualified Code(s): I25.10 - Atherosclerotic heart disease of [place] coronary artery without angina pectoris - Subjective Interval history: Seen and examined at bedside. She is complaining of bilateral feet pain. Pain is described as a pins and needle sensation, worse with activity. Says pain is preventing her from being able to bear weight ambulate. Go catheter came out last night and remains out. No chest pain, no shortness of breath - Constitutional Vitals: Temp Pulse Resp BP Pulse Ox 98.5 F 76 18 118/74 99 06/23/17 09:50 06/23/17 09:50 06/23/17 09:50 06/23/17 09:50 06/23/17 10:27 General appearance: Present: cooperative, A&O X 3, pleasant, no acute distress - Head Head exam: Present: atraumatic, normocephalic - Eye Eye exam: Present: PERRL, conjuntiva pink, sclera anicteric Pupils: Present: PERRL - ENT ENT exam: Present: mucous membranes dry (Dry, cracked lips) - Neck Neck exam general surgery: Present: supple, trachea midline. Absent: lymphadenopathy - Respiratory Respiratory exam: Present: CTAB. Absent: accessory muscle use, rales, rhonchi, wheezes - Cardiovascular Cardiovascular exam: Present: RRR, +S1, +S2. Absent: diastolic murmur, gallop, rubs, systolic murmur - GI/Abdominal GI/Abdominal exam: Present: normal bowel sounds, soft, no peritoneal signs. Absent: distended, tenderness - Extremities Exam Extremities exam: Present: pedal edema, warm, radial pulses palpable and symmetrical. Absent: calf tenderness, cyanotic - Neurological Exam Neurological exam: Present: CN II-XII intact, oriented X3, no focal deficits. Absent: pronater drift, facial droop, speech deficit - Skin Skin exam: Present: dry, intact Internal Medicine: Result - Labs CBC & Chem 7: 06/23/17 05:57 06/23/17 05:57 Labs: Short CBC 06/23/17 Range/Units 05:57 WBC 6.6 (4.3-11.1) K/mcL Hgb 12.8 (11.5-15.4) g/dL Hct 38.7 (35.3-44.9) % Plt Count 190 (140-400) K/mcL [facility] 06/23/17 05:57 Sodium 138 Potassium 3.6 Chloride 106 Carbon Dioxide 23 BUN 12 Creatinine 0.73 Glucose 109 H Calcium 8.2 L - VTE Documentation of Mechanical Device: Intermittent pneumatic compression device Consult Discharge Plan - Plan Referrals: Carolyn Reardon DO [Primary Care Provider] - 06/29/17 9:30 am
[2017-06-23] MEDS: *HR* HYDROcodone/Acet 5/325 mg TABLET PO PRN (14:33)
[2017-06-23] MEDS: Gabapentin 100 MG CAPSULE PO SCH ×2 (15:59→21:07)
[2017-06-23] MEDS: *HR* Rivaroxaban 10 MG TABLET PO SCH (17:07)
[2017-06-24 04:54] LABS: Hematocrit 36.6 % (35.3-44.9); Hemoglobin 12.2 g/dL (11.5-15.4); Mean Corpuscular HGB Conc 33.3 g/dL (31.6-35.5); Mean Corpuscular Hemoglobin 29.8 pg (28.0-33.3); Mean Corpuscular Volume 89.3 fL (83.0-100.0); Platelet Count 165 K/mcL (140-400); Red Cell Distribution Width 14.6 % (11.5-14.5)
[2017-06-24 05:20] LABS: BUN/Creatinine Ratio 16 (6-26); Blood Urea Nitrogen 12 mg/dL (7-20); Calcium 8.5 mg/dL (8.6-10.8); Carbon Dioxide 25 mEq/L (19-29); Chloride 106 mEq/L (98-109); Glucose 126 mg/dL (70-99); Osmolality,Calculated 287 (280-300); Potassium 4.2 mEq/L (3.5-4.5); Sodium 138 mEq/L (136-145); eGFR For African Americans > 60 (> 60); eGFR For Non-African Americans > 60 (> 60)
[2017-06-24] MEDS: Insulin LISPRO 300 UNITS/3 ML VIAL SQ SCH ×3 (08:48→16:43)
[2017-06-24] MEDS: Acyclovir 200 MG CAPSULE PO SCH ×2 (08:48→16:42)
[2017-06-24] MEDS: Meropenem 1,000 MG in Water for inj. (sterile) 10 ML IVP SCH (08:49)
[2017-06-24] MEDS: Gabapentin 100 MG CAPSULE PO SCH ×2 (08:49→16:43)
[2017-06-24] MEDS ORDERED: Nystatin POWDER 30 GM BOTTLE TP SCH (09:00)
--- NOTE | 2017-06-24 12:59 | Discharge Summary ---
Date of Encounter: 06/24/17 Time of Encounter: 12:45 - Discharge Diagnosis (1) UTI (urinary tract infection) due to urinary indwelling catheter Priority: Primary Status: Acute Comments: Aixa Golden is a 67 y/o female with PMH recurrent UTIs with chronic Go, A. fib, diabetes and lower extremity weakness with inability to walk presented to [facility] on 2016 with complaints of nausea and vomiting. She was placed in observation status for further work-up and treatment. 1. UTI: recurrent, secondary to go. UA with nitrites, leuk esterase and pyuria. Urine culture with Klebsiella, sensitive to Levaquin. IV meropenem started on arrival. De-escalate to Levaquin. 2. Hematuria: With gross hematuria on admission. Urology consulted and suspected secondary to UTI. Hematuria resolved. 3. Bladder incontinence: patient has had Go catheter since 09/2016 secondary to limited mobility. Go catheter removed as she does not have compelling indication (i.e. nonhealing wound, neurogenic bladder, urinary retention). Strongly recommend leaving Go catheter out with recurrent UTIs. Discussed with urology and no acute need at this time. Patient will need bladder retraining at SNF. We will need to follow-up with Dr. Bee (Urology) as an outpatient. 4. Paroxysmal atrial fibrillation: History of A. fib with RVR during past hospitalizations. Per last discharge summary (12/2016) patient should be on BB and Xarelto however she self discontinued Xarelto due to nausea. She is not sure if she is taking metoprolol. Currently rate controlled. BP soft/ borderline at times. Add low dose BB. Cont Xarelto 5. Diabetes: per hx. SSI. Hgb A1c 4.8%. 6. Physical deconditioning: with limited mobility. Evaluated by PT/OT who recommends SNF. 7. Lower extremity edema: On PRN lasix at home. Bilateral lower extremity Dopplers pending. She would likely benefit from a consistent low dose of Lasix. Will continue at discharge. 8. Chronic diastolic heart failure: Per history. 12/2016 TTE with EF 65% and mild diastolic dysfunction. With lower extremity edema on exam otherwise does not appear overloaded. Continue low-dose Lasix as noted above 9. Neuropathy: Suspected. Patient reports bilateral lower extremity pain described as burning/pins and needle sensation. Improved with low-dose gabapentin. Continue 100 mg QHS, further titration per SNF provider Qualifiers: Indwelling urinary catheter type: indwelling urethral catheter Encounter type: initial encounter Qualified Code(s): T83.511A - Infection and inflammatory reaction due to indwelling urethral catheter, initial encounter; N39.0 - Urinary tract infection, site not specified; N39.0 - Urinary tract infection, site not specified (2) Morbid obesity Priority: Primary Status: Chronic (3) Atrial fibrillation with RVR Priority: Primary Status: Resolved (4) CAD (coronary artery disease) Priority: Primary Status: Chronic Qualifiers: Coronary Disease-Associated Artery/Lesion type: [place] artery [place] vs. transplanted heart: [place] heart Associated angina: angina presence unspecified Qualified Code(s): I25.10 - Atherosclerotic heart disease of [place] coronary artery without angina pectoris (5) Chronic diastolic (congestive) heart failure Priority: Primary Status: Acute - Discharge Medications Prescriptions: Carvedilol 3.125 mg PO BID #60 tab Gabapentin [Neurontin] 100 mg PO HS #30 capsule HYDROcodone/Acet 5/325 mg [Ideal 5-325 mg] 1 tab PO Q6H PRN #28 tablet PRN Reason: Pain levoFLOXacin [Levaquin] 750 mg PO DAILY #7 tablet Home Medications: hydrOXYzine HCl [Hydroxyzine HCl] 25 mg PO Q8H PRN 12/13/16 [History] Ondansetron HCl [Zofran] 4 mg PO Q6H PRN 06/20/17 [History] Promethazine [Phenergan] 25 mg PO Q6HR PRN 06/20/17 [History] Carvedilol 3.125 mg PO BID #60 tab 06/24/17 [Rx] Furosemide [Lasix] 40 mg PO DAILY #30 06/24/17 [Rx] Gabapentin [Neurontin] 100 mg PO HS #30 capsule 06/24/17 [Rx] HYDROcodone/Acet 5/325 mg [Ideal 5-325 mg] 1 tab PO Q6H PRN #28 tablet 06/24/17 [Rx] Rivaroxaban [Xarelto] 20 mg PO 1700 tablet 06/24/17 [Rx] levoFLOXacin [Levaquin] 750 mg PO DAILY #7 tablet 06/24/17 [Rx] Allergies/Adverse Reactions: 3 Allergy/AdvReac Type Severity Reaction Status Date / Time levofloxacin [From Levaquin] Allergy Hives Verified 09/28/16 08:50 Penicillins Allergy Blister Verified 09/28/16 08:50 prednisone Allergy See Verified 09/28/16 08:50 Comments Sulfa (Sulfonamide Allergy Hives Verified 09/28/16 08:50 Antibiotics) Banana AdvReac Severe Blister Verified 09/28/16 08:50 egg AdvReac Severe Throat Verified 09/28/16 08:50 swelling nitrofurantoin AdvReac Severe Bruising Verified 09/28/16 08:50 [From Macrobid] on arms Procedures/tests Complete & Pending: Procedures Performed prior 72 hours Category Date Time Status Venous Doppler [EV venous imaging LE BI] Stat Y 06/24/17 09:45 Ordered Date of admission: 06/21/17 05:41 Primary care physician: Azam Fields Consults: 06/21/17 05:48 Consult to Occupational Therapy [CONS] Routine Comment: Evaluate, develop and implement POC Reason for Consult: decondtioning Consult to Physical Therapy [CONS] Routine Comment: Evaluate, develop and implement POC Reason for Consult: deconditioning Consult to Customer Service And Sales Consultant [CONS] Routine Reason for SW Consult: discharge planning 06/22/17 08:36 Consult to Urology [CONS] Routine Consulting Provider: Boby Ricks Reason for Consult: Hematuria Call Completed: Yes Discharging clinician: Roberta Butcher Anticipated date of discharge: 06/24/17 - Patient Status Disposition: Transfer SNF Condition: Good Functional capacity at discharge: uses cane/walker Overall status at discharge: patient is progressing back to baseline - Discharge Instructions Follow Up With: Juan Ramon Sandra MD [Partnered Physician] - Carolyn Reardon DO [Primary Care Provider] - 06/29/17 9:30 am Juan Bee MD [Partnered Physician] - 07/15/17 3:00 pm - Diet and Activity Activity: as per physical therapy Diet: low fat, low cholesterol Interval History: Seen and examined at bedside. Sitting up and agitated bed eating breakfast. Says she feels better today and she is ready to discharge to SNF. Still with complaints of lower extremity pain described as burning sensation but she says improved from yesterday and thinks gabapentin is helping. She also reports lower extremity edema, and declining compression wraps at this time. Advised patient that if Dopplers are negative she will be discharged to SNF. She denies chest pain, no shortness of breath. Hospital course: Ms. Golden is a 67 year old female Time spent discussing smoking cessation with patient: more than 10 minutes (45 minutes spent on discharge) - Time Spent with Patient Total time spent providing and/or coordinating discharge services: - Constitutional Vitals: Temp Pulse Resp BP Pulse Ox 97.8 F 76 18 137/83 96 06/24/17 10:04 06/24/17 10:04 06/24/17 10:04 06/24/17 10:04 06/24/17 10:04 General appearance: Present: cooperative, A&O X 3, pleasant, no acute distress - Head Head exam: Present: atraumatic, normocephalic - Eye Eye exam: Present: PERRL, conjuntiva pink, sclera anicteric Pupils: Present: PERRL - ENT ENT exam: Present: mucous membranes dry - Neck Neck exam general surgery: Present: supple, trachea midline. Absent: lymphadenopathy - Respiratory Respiratory exam: Present: CTAB. Absent: accessory muscle use, rales, rhonchi, wheezes - Cardiovascular Cardiovascular exam: Present: RRR, +S1, +S2. Absent: diastolic murmur, gallop, rubs, systolic murmur - GI/Abdominal GI/Abdominal exam: Present: normal bowel sounds, soft, no peritoneal signs. Absent: distended, tenderness - Extremities Exam Extremities exam: Present: pedal edema, warm, radial pulses palpable and symmetrical. Absent: calf tenderness, cyanotic Additional comments: Moderate lower extremity lower ext edema - Neurological Exam Neurological exam: Present: CN II-XII intact, oriented X3, no focal deficits. Absent: pronater drift, facial droop, speech deficit - Skin Skin exam: Present: dry, intact - VTE Documentation of Mechanical Device: Intermittent pneumatic compression device
--- NOTE | 2017-06-24 13:22 | Physician Discharge Referral ---
ExtendedCare Referral Info Transfer To: SNF Provider in Charge: Roberta Butcher CNP Provider in Charge after Transfer: PCP, Other (SNF provider) Institutional Level of Care: Skilled - Diagnosis (1) UTI (urinary tract infection) due to urinary indwelling catheter Status: Acute (2) Morbid obesity Status: Chronic (3) Atrial fibrillation with RVR Status: Resolved (4) CAD (coronary artery disease) Status: Chronic (5) Chronic diastolic (congestive) heart failure Status: Acute - Transfer Medications Prescriptions: Carvedilol 3.125 mg PO BID #60 tab Gabapentin [Neurontin] 100 mg PO HS #30 capsule HYDROcodone/Acet 5/325 mg [[place] 5-325 mg] 1 tab PO Q6H PRN #28 tablet PRN Reason: Pain levoFLOXacin [Levaquin] 750 mg PO DAILY #7 tablet Home Medications: hydrOXYzine HCl [Hydroxyzine HCl] 25 mg PO Q8H PRN 12/13/16 [History] Ondansetron HCl [Zofran] 4 mg PO Q6H PRN 06/20/17 [History] Promethazine [Phenergan] 25 mg PO Q6HR PRN 06/20/17 [History] Carvedilol 3.125 mg PO BID #60 tab 06/24/17 [Rx] Furosemide [Lasix] 40 mg PO DAILY #30 06/24/17 [Rx] Gabapentin [Neurontin] 100 mg PO HS #30 capsule 06/24/17 [Rx] HYDROcodone/Acet 5/325 mg [[place] 5-325 mg] 1 tab PO Q6H PRN #28 tablet 06/24/17 [Rx] Rivaroxaban [Xarelto] 20 mg PO 1700 tablet 06/24/17 [Rx] levoFLOXacin [Levaquin] 750 mg PO DAILY #7 tablet 06/24/17 [Rx] Allergies/Adverse Reactions: 3 Allergy/AdvReac Type Severity Reaction Status Date / Time levofloxacin [From Levaquin] Allergy Hives Verified 09/28/16 08:50 Penicillins Allergy Blister Verified 09/28/16 08:50 prednisone Allergy See Verified 09/28/16 08:50 Comments Sulfa (Sulfonamide Allergy Hives Verified 09/28/16 08:50 Antibiotics) Banana AdvReac Severe Blister Verified 09/28/16 08:50 egg AdvReac Severe Throat Verified 09/28/16 08:50 swelling nitrofurantoin AdvReac Severe Bruising Verified 09/28/16 08:50 [From Macrobid] on arms - Respiratory Orders Oxygen / L per min (2 L/m via nasal cannula. Titrate to maintain oxygen saturation greater than or equal to 92%) Smoking Cessation: Smoking cessation has been advised. For more information, call the [place] Tobacco Quit Line at 0-912-ZKHX-NOW. - Advance Directives Code Status: Full Code - Mobility Orders Ambulate - Rehabiliation Orders Rehab Potential: Fair Rehab Orders: Evaluation for Physical Therapy, Evaluation for Occupational Therapy - Diet Orders No Added Salt (JOSEPH), No Concentrated Sweets CERTIFICATION: I certify that the transfer of the above named patient to an Extended Care Facility is necessary for the continuing treatment of the diagnosis listed. The above information is true and accurate reflection of patient's current condition. Confidential - Redisclosure prohibited without a patient's written consent.
[2017-06-24 14:46] VITALS: BP 94/57
[2017-06-24] MEDS: *HR* Rivaroxaban 10 MG TABLET PO SCH (16:43)
== END 2017-06-24 17:50 | DRG 699 ==
LOC: 3NENU 20:22 → EMEROO 20:22 → 3NENU 23:27
PROVIDERS: ADMIT Internal Medicine; ATTEND Internal Medicine

== ENCOUNTER 2017-12-04 14:53 | Inpatient (IN) ==
[2017-12-04] MEDS ORDERED: 0.9 % Sodium Chloride 1,000 ML IVC ONE (15:10)
[2017-12-04 15:42] LABS: Bilirubin,Urine Small (Negative); Blood,Urine Large (Negative); Clarity,Urine Turbid (Clear); Glucose,Urine (UA) Normal (Normal); Ketones,Urine Trace mg/dL (Negative); Leukocyte Esterase,Urine Moderate (Negative); Nitrite,Urine Negative (Negative); Protein,Urine >=300 mg/dL (Neg-Trace); Specific Gravity,Urine 1.016 (1.010-1.025); Urobilinogen,Urine Normal (Normal)
[2017-12-04 15:44] LABS: Bacteria,Urine Many per hpf (None-Few); Hyaline Casts,Urine None Seen per lpf (None-Few); RBC,Urine TNTC per hpf (0-3); Squamous Epithelial Cell,Urine None Seen per lpf (None-Few); WBC,Urine TNTC per hpf (0-3)
[2017-12-04 15:45] LABS: Color,Urine Dark Yellow (Yellow)
--- NOTE | 2017-12-04 15:49 | Emergency Department Note ---
Disposition Clinical Impression: Colitis Urinary tract infection Qualifiers: Urinary tract infection type: acute pyelonephritis Qualified Code(s): N10 - Acute pyelonephritis Decubitus ulcer Qualifiers: Pressure ulcer location: buttock Pressure ulcer stage: stage 2 Laterality: unspecified laterality Qualified Code(s): L89.302 - Pressure ulcer of unspecified buttock, stage 2 Disposition: Admitted As Inpatient Condition: Fair Time of Disposition: 18:20 General Adult HPI - General Chief complaint: ED Urogenital-Female Stated complaint: hematuria, strong urine Time Seen by Provider: 12/04/17 15:10 Source: patient, EMS Mode of arrival: EMS Limitations: no limitations Nursing Notes Reviewed: Yes Vital Signs Reviewed: Yes - History of Present Illness HPI Narrative: 67-year-old female presents emergency department via EMS for concerns of urinary tract infection. Patient has a history of chronic urinary tract infections. Stasis field same as prior. She was less treated 2 months ago. She states anytime she notices blood in her urine it is typically or urinary tract infection. She has some associated abdominal pain and nausea. She has some flank pain as well. She denies any fevers, recent illness, cough, chest pain or shortness of breath. She is noticed a strong odor to her urine. Denies any vaginal bleeding or discharge. At this time will check basic labs in urinalysis and CT scan. After the patient was cleaned up due to some urinary incontinence we found a large decubitus ulcer to the sacral region. Sanchez catheter was placed due to the wound. Pain Scale: 7 - Related Data Home Medications Medication Instructions Recorded Confirmed Promethazine [Phenergan] 25 mg PO Q6HR PRN 06/20/17 12/04/17 Previous Rx's Medication Instructions Recorded HYDROcodone/Acet 5/325 mg [[place] 1 tab PO Q6H PRN #28 tablet 06/24/17 5-325 mg] Allergies Allergy/AdvReac Type Severity Reaction Status Date / Time levofloxacin [From Levaquin] Allergy Hives Verified 09/28/16 08:50 Penicillins Allergy Blister Verified 09/28/16 08:50 prednisone Allergy See Verified 09/28/16 08:50 Comments Sulfa (Sulfonamide Allergy Hives Verified 09/28/16 08:50 Antibiotics) Banana AdvReac Severe Blister Verified 09/28/16 08:50 egg AdvReac Severe Throat Verified 09/28/16 08:50 swelling nitrofurantoin AdvReac Severe Bruising Verified 09/28/16 08:50 [From Macrobid] on arms All systems ED: reviewed and negative except as stated. Review of Systems: As Per HPI Constitutional: Denies: fever, chills ENT ED: Denies: congestion Cardiovascular: Denies: chest pain Respiratory: Denies: cough, dyspnea Gastrointestinal: Reports: abdominal pain, nausea. Denies: vomiting Genitourinary: Reports: urgency, dysuria, hematuria Musculoskeletal: Reports: back pain. Denies: neck pain Integumentary: Denies: rash, abrasion Neurological: Denies: headache Past Medical History - Past Medical History Attestation: Yes The following information was validated with the patient. Source: patient Medical history: Reports: arthritis, asthma, atrial fibrillation, CHF, COPD, diabetes, GERD, kidney stones, other Surgical history: Reports: angioplasty/stent, hysterectomy Psychiatric history: Reports: anxiety, depression, panic disorder - Social History Smoking Status: Never smoker Smokeless Tobacco Status: No Alcohol use: Reports: none Drug use: Reports: none Physical Exam - General Limitations: no limitations General appearance: alert, in no apparent distress, obese (Morbid), other ( Disheveled) - Head Head exam: atraumatic, normocephalic, normal inspection - Eye Eye exam: Present: normal appearance, PERRL, EOMI - ENT ENT exam: normal exam, normal oropharynx, mucous membranes dry, other (Tried chapped lips) - Neck Neck exam: Present: normal inspection, full ROM, trachea midline - Chest Chest inspection: Present: normal inspection, symmetric chest wall rise - Respiratory Respiratory exam: Present: normal lung sounds bilaterally. Absent: respiratory distress, wheezes - Cardiovascular Cardiovascular exam: Present: regular rate, normal rhythm, normal heart sounds - Abdominal Exam Abdominal exam: Present: soft (Obese), tenderness, normal bowel sounds. Absent : distention, guarding, rebound, rigidity Abdominal tenderness: Present: diffuse - Extremities Exam Extremities exam: Present: normal inspection, full ROM. Absent: tenderness, pedal edema - Back Exam Back exam: Present: other (Sacral decubitus ulcer weekly stage II, surrounding erythema with sums skin breakdown, there is no crepitus) - Neurological Exam Neurological exam: Present: alert, oriented X3 - Psychiatric Psychiatric exam: Present: normal affect, normal mood - Skin Skin exam: Present: warm, dry Course Course Narrative: Urinalysis appears consistent with infection. Because her abdomen is diffusely tender as CT of the abdomen and pelvis was ordered. It revealed findings consistent with colitis as well as renal pelvis stones. We consulted the urologist in regards to urinary tract infection in the stone. Will be happy to see the patient on the floor. She does not have a leukocytosis. Patient has been hemodynamically stable here. She will be admitted to the hospitalist service a may likely require wound care consultation for her decubitus ulcers to the sacral region. It appears to be at this stage II. CT did not find any findings of fistula or air. There was finding of an ovarian cyst a require further evaluation but not on an emergent basis. Patient has been placed on Cefepime and Flagyl with the consultation of the pharmacist. Impression is urinary tract infection, colitis and decubitus ulcer. - Consultations Consultation #1: Spoke with Dr. Bee urologist regarding the patient's case and presentation. Urinalysis is consistent with infection. CT of the abdomen and pelvis revealed pelvic stone as well as the ureteral stone. He is okay for consultation on the floor for admission. We discussed antibiotic choice and looked at prior sensitivities. Spoke to the pharmacists and we have agreed with a cefepime. She does have penicillin listed as an allergy with blisters will observe for cross-reactivity. Time: 18:12 Vital Signs Temperature 97.9 F 12/04/17 15:10 Pulse Rate 85 12/04/17 15:10 Respiratory Rate 18 12/04/17 15:10 Blood Pressure 114/84 12/04/17 15:10 O2 Sat by Pulse Oximetry 97 12/04/17 15:10 Temperature 97.6 F 12/04/17 21:33 Pulse Rate 91 12/04/17 21:33 Respiratory Rate 16 12/04/17 21:33 Blood Pressure 113/77 12/04/17 21:33 O2 Sat by Pulse Oximetry 96 12/04/17 21:33 Oxygen Delivery Oxygen Delivery Room Air Medical Decision Making - MDM Narrative Medical decision making narrative: Patient was discussed with my attending physician who agrees with ED management and final disposition. They independently evaluated the patient. Please refer to their attestation to this encounter for additional information. This note was generated by [employer] voice recognition software and as a result grammatical or spelling errors may occur using this program. - Medical Records Medical records reviewed: Yes I reviewed the patient's medical records. - Lab Data Lab results reviewed: Yes I reviewed the patient's lab results. Result diagrams: 12/04/17 15:46 12/04/17 15:46 Lab Results 12/04/17 12/04/17 12/04/17 Range/Units 15:31 15:46 15:46 WBC 10.5 (4.3-11.1) K/mcL RBC 4.73 (3.82-4.97) M/mcL Hgb 14.3 (11.5-15.4) g/dL Hct 41.5 (35.3-44.9) % MCV 87.7 (83.0-100.0) fL MCH 30.2 (28.0-33.3) pg MCHC 34.5 (31.6-35.5) g/dL RDW 14.3 (11.5-14.5) % Plt Count 209 (140-400) K/mcL MPV 10.8 (9.4-12.4) fL Immature Gran % 0.3 (0-4) % Seg Neutrophils % 64.9 % Lymphocytes % 24.8 % Monocytes % 6.8 % Eosinophils % 2.8 % Basophils % 0.4 % Neutrophils # 6.8 (1.6-8.9) K/mcL Lymphocytes # 2.6 (0.6-4.6) K/mcL Monocytes # 0.7 (0.0-1.3) K/mcL Eosinophils # 0.3 (0.0-0.6) K/mcL Basophils # 0.0 (0.0-0.2) K/mcL Sodium 135 L (136-145) mEq/L Potassium 3.3 L (3.5-5.1) mEq/L Chloride 104 (98-107) mEq/L Carbon Dioxide 19 L (23-29) mEq/L BUN 16 (8-23) mg/dL Creatinine 0.75 (0.60-1.20) mg/dL Est GFR ( Amer) > 60 (> 60) Est GFR (Non-Af Amer) > 60 (> 60) BUN/Creatinine Ratio 21 (6-26) Glucose 127 H (70-105) mg/dL Calculated Osmolality 283 (280-300) Lactic Acid (0.5-2.2) mmol/L Calcium 8.8 (8.6-10.3) mg/dL Total Bilirubin 1.4 H (0.3-1.0) mg/dL Direct Bilirubin 0.6 H (0.0-0.2) mg/dL Indirect Bilirubin 0.8 (0.0-1.2) mg/dL AST 29 (13-39) Units/L ALT 15 (7-52) Units/L Alkaline Phosphatase 106 H (34-104) Units/L Serum Total Protein 7.0 (6.4-8.9) g/dL Albumin 3.2 L (3.5-5.7) g/dL Globulin 3.8 H (2.4-3.5) g/dL Albumin/Globulin Ratio 0.8 L (1.1-2.2) Lipase (11-82) Units/L Urine Color Dark Yellow (Yellow) Urine Clarity Turbid A (Clear) Urine pH 7.0 (5.0-8.0) pH Units Ur Specific [place] 1.016 (1.010-1.025) Urine Protein >=300 H (Neg-Trace) mg/dL Urine Glucose (UA) Normal (Normal) mg/dL Urine Ketones Trace H (Negative) mg/dL Urine Blood Large H (Negative) Urine Nitrite Negative (Negative) Urine Bilirubin Small H (Negative) Urine Urobilinogen Normal (Normal) mg/dL Ur Leukocyte Esterase Moderate H (Negative) Urine Microscopic RBC TNTC H (0-3) per hpf Urine Microscopic WBC TNTC H (0-3) per hpf Ur Squamous Epith Cells None Seen (None-Few) per lpf Urine Bacteria Many H (None-Few) per hpf Hyaline Casts None Seen (None-Few) per lpf Ur Culture Indicated? YES A (NO) 12/04/17 12/04/17 Range/Units 15:46 17:18 WBC (4.3-11.1) K/mcL RBC (3.82-4.97) M/mcL Hgb (11.5-15.4) g/dL Hct (35.3-44.9) % MCV (83.0-100.0) fL MCH (28.0-33.3) pg MCHC (31.6-35.5) g/dL RDW (11.5-14.5) % Plt Count (140-400) K/mcL MPV (9.4-12.4) fL Immature Gran % (0-4) % Seg Neutrophils % % Lymphocytes % % Monocytes % % Eosinophils % % Basophils % % Neutrophils # (1.6-8.9) K/mcL Lymphocytes # (0.6-4.6) K/mcL Monocytes # (0.0-1.3) K/mcL Eosinophils # (0.0-0.6) K/mcL Basophils # (0.0-0.2) K/mcL Sodium (136-145) mEq/L Potassium (3.5-5.1) mEq/L Chloride (98-107) mEq/L Carbon Dioxide (23-29) mEq/L BUN (8-23) mg/dL Creatinine (0.60-1.20) mg/dL Est GFR ( Amer) (> 60) Est GFR (Non-Af Amer) (> 60) BUN/Creatinine Ratio (6-26) Glucose (70-105) mg/dL Calculated Osmolality (280-300) Lactic Acid 1.8 (0.5-2.2) mmol/L Calcium (8.6-10.3) mg/dL Total Bilirubin (0.3-1.0) mg/dL Direct Bilirubin (0.0-0.2) mg/dL Indirect Bilirubin (0.0-1.2) mg/dL AST (13-39) Units/L ALT (7-52) Units/L Alkaline Phosphatase (34-104) Units/L Serum Total Protein (6.4-8.9) g/dL Albumin (3.5-5.7) g/dL Globulin (2.4-3.5) g/dL Albumin/Globulin Ratio (1.1-2.2) Lipase 11 (11-82) Units/L Urine Color (Yellow) Urine Clarity (Clear) Urine pH (5.0-8.0) pH Units Ur Specific [place] (1.010-1.025) Urine Protein (Neg-Trace) mg/dL Urine Glucose (UA) (Normal) mg/dL Urine Ketones (Negative) mg/dL Urine Blood (Negative) Urine Nitrite (Negative) Urine Bilirubin (Negative) Urine Urobilinogen (Normal) mg/dL Ur Leukocyte Esterase (Negative) Urine Microscopic RBC (0-3) per hpf Urine Microscopic WBC (0-3) per hpf Ur Squamous Epith Cells (None-Few) per lpf Urine Bacteria (None-Few) per hpf Hyaline Casts (None-Few) per lpf Ur Culture Indicated? (NO) - Radiology Data Radiology results reviewed: Yes I reviewed the patient's radiology results. Abdomen/Pelvis CT 12/04/17 15:10 IMPRESSION: Marked dilation of the rectosigmoid colon which also shows wall thickening and adjacent stranding. Correlation for stercoral colitis is recommended. Right nephrolithiasis including 1.8 cm right renal pelvic stone. There is mild prominence of right renal pelvis and proximal right ureter without obstructing calcified right ureteral stone. Right urothelial thickening is suspected. Correlation for obstructive uropathy or inflammation/infection is recommended. Perivesical fat stranding. Correlation for cystitis. Fatty infiltration of liver. 5.4 x 4.8 cm cystic focus adjacent to or within the right ovary, not seen on the prior study. Differential considerations include a peritoneal inclusion cyst, loculated ascites, or cystic lesion of the right adnexa. Short-term follow-up pelvic ultrasound would be helpful to further evaluate to include transabdominal images. D/ / Coty Lam Cha, MD / Coty Lam Cha, MD Interpreting Provider: Coty Lam Cha, MD Attestation Statement - Attestation Attestation: Patient was seen with resident physician. I reviewed the history, physical, assessment and plan, and agree with the findings. I also personally evaluated this patient and had [id number] time with this patient. 67-year-old female presents emergency Department chief complaint of dysuria and foul-smelling urine. Also with diffuse abdominal pain. Patient has lost control both while in bladder recently and is essentially unable to care for herself to clean herself properly. Comes in today for evaluation and treatment of variety of her complaints. Remainder of review systems is negative except as noted. On examination vital signs were stable. ENT is unremarkable. Heart regular rhythm and rate. Lungs clear. Abdomen soft diffusely tender with no guarding rigidity. Extremities unremarkable. Neurologically alert and oriented. Skin no obvious rashes lips are very dry. Patient does have decubitus ulcers see resident note for further description. Skin as noted. ED course. Urinalysis was positive. CT scan showed possible renal stone and possible infection. Blood cultures were drawn urine cultures were sent patient was started on IV antibiotics and she will be admitted to the hospitalist service for further intervention for pyelonephritis with possible renal stone involvement. We did discuss case also with urology. Because the patient's allergies we spoke with pharmacy to determine appropriate antibiotic with least potential for cross-reactivity. Patient remained stable on the emergency department. Agree with resident physician assessment and plan.
[2017-12-04 16:03] LABS: Basophils % 0.4 %; Eosinophils # 0.3 K/mcL (0.0-0.6); Eosinophils % 2.8 %; Hematocrit 41.5 % (35.3-44.9); Hemoglobin 14.3 g/dL (11.5-15.4); Immature Granulocytes % 0.3 % (0-4); Lymphocytes # 2.6 K/mcL (0.6-4.6); Lymphocytes % 24.8 %; Mean Corpuscular HGB Conc 34.5 g/dL (31.6-35.5); Mean Corpuscular Hemoglobin 30.2 pg (28.0-33.3); Mean Corpuscular Volume 87.7 fL (83.0-100.0); Mean Platelet Volume 10.8 fL (9.4-12.4); Monocytes # 0.7 K/mcL (0.0-1.3); Monocytes % 6.8 %; Neutrophils # 6.8 K/mcL (1.6-8.9); Platelet Count 209 K/mcL (140-400); Red Blood Count 4.73 M/mcL (3.82-4.97); Red Cell Distribution Width 14.3 % (11.5-14.5); Segmented Neutrophils % 64.9 %
[2017-12-04 16:26] LABS: Alanine Aminotransferase 15 Units/L (7-52); Albumin 3.2 g/dL (3.5-5.7); Albumin/Globulin Ratio 0.8 (1.1-2.2); Alkaline Phosphatase 106 Units/L (34-104); Aspartate Amino Transferase 29 Units/L (13-39); BUN/Creatinine Ratio 21 (6-26); Bilirubin,Direct 0.6 mg/dL (0.0-0.2); Bilirubin,Indirect 0.8 mg/dL (0.0-1.2); Bilirubin,Total 1.4 mg/dL (0.3-1.0); Blood Urea Nitrogen 16 mg/dL (8-23); Calcium 8.8 mg/dL (8.6-10.3); Carbon Dioxide 19 mEq/L (23-29); Chloride 104 mEq/L (98-107); Globulin 3.8 g/dL (2.4-3.5); Glucose 127 mg/dL (70-105); Osmolality,Calculated 283 (280-300); Potassium 3.3 mEq/L (3.5-5.1); Sodium 135 mEq/L (136-145); eGFR For African Americans > 60 (> 60); eGFR For Non-African Americans > 60 (> 60)
[2017-12-04] MEDS ORDERED: MetroNIDAZOLE 500 MG/100 ML 500 MG/100 ML BAG IVPB ONE (18:14)
[2017-12-04] MEDS ORDERED: Cefepime HCl 2,000 MG in Water for inj. (sterile) 20 ML 20 ML IVP ONE (18:45)
[2017-12-04] MEDS ORDERED: Naloxone 0.4 MG/ML INJ IVP PRN (20:35)
[2017-12-04] MEDS ORDERED: *HR* Dextrose 50 % in Water (Syg) 50 ML SYRINGE IVP PRN (20:39)
[2017-12-04] MEDS ORDERED: D5% in Water 1,000 ML IVC PRN (20:39)
[2017-12-04] MEDS ORDERED: Dextrose Gel 15 GM/37.5 ML TUBE PO PRN ×2 (20:39)
[2017-12-04] MEDS ORDERED: 0.9 % Sodium Chloride 1,000 ML IVC SCH (20:45)
--- NOTE | 2017-12-04 20:49 | Internal Med History&Physical ---
Date of Encounter: 12/04/17 Time of Encounter: 20:45 Internal Medicine - H&P: HPI Chief complaint: Suprapubic and flank pain Admitted From: Home Plans for Post Hospital Care: Home History of present illness: Ms. Golden is a 67 year old female with a past medical history of recurrent UTIs, atrial fibrillation on Xarelto, diastolic CHF, coronary artery disease with prior stent, diabetes type 2 not insulin dependent, SVT presented to the emergency room with complaints of hematuria, bloody urine, associated suprapubic and flank pain and nausea. She has a history of recurrent urinary tract infections including multidrug resistant organisms in the past. She denies fever, she denies chills, she denies cough chest pain or shortness of breath. She denies any vaginal discharges or vaginal bleeding. She denies any recent instrumentation or trauma. She also reported urinary incontinence which is worse than before. According to the ER, the patient's clinically she was found to have a stage II sacral ulcer which does not appear to be infected, abdomen and pelvic CT done in the ER reveals presence of right-sided nephrolithiasis with perinephric stranding, as well as cystitis. Due to prior history of multiple TIAs and MDI with, cefepime is antibiotic of choice as at this time. The patient has received evaluation and has no allergies to it. In addition to the above symptoms, the patient reports painful swelling, redness and extensive peeling of her lips. She denies gingivitis, no gum bleeding, no recent dental procedures. No blisters or vesicles. She also reports a few episodes of diarrhea several days ago prior to presentation. No current diarrhea. Past Med Surg Social Fam HX - Past Medical History Medical history: arthritis, asthma, atrial fibrillation, CHF, COPD, diabetes, GERD, kidney stones, other Psychiatric history: anxiety, depression, panic disorder - Past Surgical History Surgical History: angioplasty/stent, hysterectomy - Social History Smoking Status: Never smoker Smokeless Tobacco Status: No Alcohol use: none Drug use: none - Family History Brother Living Status: Still Living Hx Family Cardiac Disorders: Yes (HTN) Hx Family Endocrine Disorder: Yes (Diabetes) Mother Living Status: Hx Family Cardiac Disorders: Yes (HTN) Hx Family Endocrine Disorder: Yes (Diabetes) Father Living Status: Hx Family Cardiac Disorders: Yes (CABG x3 HTN diabetes) Hx Family Respiratory Disorders: No Hx Family Cancer: No Hx Family GI Disorders: No Hx Family Endocrine Disorder: Yes Hx Family Neuromuscular Disorders: No Hx Family Neurologic Disorders: No Hx Family HEENT Disorders: No Hx Family Autoimmune Disorders: No Internal Medicine - H&P: Meds hydrOXYzine HCl [Hydroxyzine HCl] 25 mg PO Q8H PRN 12/13/16 [History] Ondansetron HCl [Zofran] 4 mg PO Q6H PRN 06/20/17 [History] Promethazine [Phenergan] 25 mg PO Q6HR PRN 06/20/17 [History] Carvedilol 3.125 mg PO BID #60 tab 06/24/17 [Rx] Furosemide [Lasix] 40 mg PO DAILY #30 06/24/17 [Rx] Gabapentin [Neurontin] 100 mg PO HS #30 capsule 06/24/17 [Rx] HYDROcodone/Acet 5/325 mg [[place] 5-325 mg] 1 tab PO Q6H PRN #28 tablet 06/24/17 [Rx] Rivaroxaban [Xarelto] 20 mg PO 1700 tablet 06/24/17 [Rx] levoFLOXacin [Levaquin] 750 mg PO DAILY #7 tablet 06/24/17 [Rx] 3 Allergy/AdvReac Type Severity Reaction Status Date / Time levofloxacin [From Levaquin] Allergy Hives Verified 09/28/16 08:50 Penicillins Allergy Blister Verified 09/28/16 08:50 prednisone Allergy See Verified 09/28/16 08:50 Comments Sulfa (Sulfonamide Allergy Hives Verified 09/28/16 08:50 Antibiotics) Banana AdvReac Severe Blister Verified 09/28/16 08:50 egg AdvReac Severe Throat Verified 09/28/16 08:50 swelling nitrofurantoin AdvReac Severe Bruising Verified 09/28/16 08:50 [From Macrobid] on arms All Systems PM: A 10-system review of systems was performed and is negative for pertinent findings except as documented above in the HPI. - Constitutional Constitutional: as per HPI - EENT Eyes: as per HPI Ears: as per HPI Nose, mouth and throat: dry mouth, lip swelling, no bleeding gums, no dysphagia , no nasal discharge, no neck pain, no sore throat - Cardiovascular Cardiovascular ROS IM: no chest pain, no diaphoresis, no dyspnea, no lightheadedness, no palpitations, no syncope - Respiratory Respiratory: no cough, no dyspnea, no wheezing, no excessive phlegm production - Gastrointestinal Gastrointestinal: no abdominal pain, no diarrhea, no hematemesis, no hematochezia, no melena, no nausea, no vomiting - Genitourinary Genitourinary: as per HPI - Musculoskeletal Musculoskeletal ROS IM: no numbness, no tingling - Integumentary Integumentary IM: no rash, no unusual bruising - Neurological Neurological ROS: no confusion, no convulsions, no focal weakness, no numbness, no tingling, no tremor(s) - Hematologic/Lymphatic Hematologic/Lymphatic: no easy bruising - Constitutional Vitals: Temp Pulse Resp BP Pulse Ox 97.9 F 89 18 109/70 95 12/04/17 15:10 12/04/17 20:39 12/04/17 20:39 12/04/17 20:39 12/04/17 20:39 General appearance: Present: A&O X 3, morbidly obese, no acute distress - Head Head exam: Present: atraumatic, normocephalic - Eye Eye exam: Present: PERRL, conjuntiva pink, sclera anicteric Pupils: Present: PERRL - ENT ENT exam: Present: mucous membranes dry Additional comments: Cracked, inflammed lips, no evidence of gingivitis - Neck Neck exam general surgery: Present: supple, trachea midline. Absent: lymphadenopathy - Respiratory Respiratory exam: Present: CTAB. Absent: accessory muscle use, rales, rhonchi, wheezes - Cardiovascular Cardiovascular exam: Present: RRR, +S1, +S2. Absent: diastolic murmur, gallop, rubs, systolic murmur - GI/Abdominal GI/Abdominal exam: Present: normal bowel sounds, soft, no peritoneal signs. Absent: distended, tenderness - Additional comments: Sanchez catheter draining brown urine, no gross hematuria Emergency room documentation, patient has a stage II decubitus sacral ulcer. Examination are not repeated - Extremities Exam Extremities exam: Present: warm, radial pulses palpable and symmetrical. Absent : calf tenderness, cyanotic, pedal edema - Back Exam Back exam: Present: CVA tenderness (R) - Neurological Exam Neurological exam: Present: alert, CN II-XII intact, oriented X3, no focal deficits. Absent: pronater drift, facial droop, speech deficit - Skin Skin exam: Present: dry, intact Internal Med - H&P Results - Labs CBC & Chem 7: 12/04/17 15:46 12/04/17 15:46 Labs: Short CBC 12/04/17 Range/Units 15:46 WBC 10.5 (4.3-11.1) K/mcL Hgb 14.3 (11.5-15.4) g/dL Hct 41.5 (35.3-44.9) % Plt Count 209 (140-400) K/mcL Neutrophils # 6.8 (1.6-8.9) K/mcL BMP 12/04/17 15:46 Sodium 135 L Potassium 3.3 L Chloride 104 Carbon Dioxide 19 L BUN 16 Creatinine 0.75 Glucose 127 H Calcium 8.8 Liver Function 12/04/17 Range/Units 15:46 Total Bilirubin 1.4 H (0.3-1.0) mg/dL Direct Bilirubin 0.6 H (0.0-0.2) mg/dL AST 29 (13-39) Units/L ALT 15 (7-52) Units/L Alkaline Phosphatase 106 H (34-104) Units/L Albumin 3.2 L (3.5-5.7) g/dL Urine 12/04/17 Range/Units 15:31 Urine Color Dark Yellow (Yellow) Urine Clarity Turbid A (Clear) Urine pH 7.0 (5.0-8.0) pH Units Ur Specific [place] 1.016 (1.010-1.025) Urine Protein >=300 H (Neg-Trace) mg/dL Urine Glucose (UA) Normal (Normal) mg/dL - Impressions ITS Impressions Abdomen/Pelvis CT 12/04/17 15:10 IMPRESSION: Marked dilation of the rectosigmoid colon which also shows wall thickening and adjacent stranding. Correlation for stercoral colitis is recommended. Right nephrolithiasis including 1.8 cm right renal pelvic stone. There is mild prominence of right renal pelvis and proximal right ureter without obstructing calcified right ureteral stone. Right urothelial thickening is suspected. Correlation for obstructive uropathy or inflammation/infection is recommended. Perivesical fat stranding. Correlation for cystitis. Fatty infiltration of liver. 5.4 x 4.8 cm cystic focus adjacent to or within the right ovary, not seen on the prior study. Differential considerations include a peritoneal inclusion cyst, loculated ascites, or cystic lesion of the right adnexa. Short-term follow-up pelvic ultrasound would be helpful to further evaluate to include transabdominal images. D/ / Coty Lam Cha, MD / Coty Lam Cha, MD Interpreting Provider: Coty Lam Cha, MD - Assessment and plan (1) Pyelonephritis Current Visit: Yes Status: Acute Assessment and plan: Continue cefepime, follow urine culture Complicated UTI due to presence of stones. CAT scan shows nonobstructive nephrolithiasis. Urology has been consulted by the ER team. We will await GI recommendations. Renal function stable. (2) Atrial fibrillation Current Visit: Yes Status: Chronic Assessment and plan: Atrial fibrillation with controlled heart rate on xarelto, Continue home medications. Qualifiers: Atrial fibrillation type: paroxysmal Qualified Code(s): I48.0 - Paroxysmal atrial fibrillation (3) CAD (coronary artery disease) Current Visit: Yes Status: Chronic Assessment and plan: continue home meds Qualifiers: Coronary Disease-Associated Artery/Lesion type: [place] artery [place] vs. transplanted heart: [place] heart Associated angina: angina presence unspecified Qualified Code(s): I25.10 - Atherosclerotic heart disease of [place] coronary artery without angina pectoris (4) CHF (congestive heart failure) Current Visit: Yes Status: Chronic Assessment and plan: Chronic CHFpEF Euvolemic on exam. Continue home medications. Qualifiers: Qualified Code(s): I50.32 - Chronic diastolic (congestive) heart failure (5) Decubitus ulcer Current Visit: Yes Status: Chronic Assessment and plan: chronic, consult wound care for eval Qualifiers: Pressure ulcer location: buttock Pressure ulcer stage: stage 2 Laterality : unspecified laterality Qualified Code(s): L89.302 - Pressure ulcer of unspecified buttock, stage 2 (6) Diabetes Current Visit: Yes Status: Chronic Assessment and plan: FS ACHS ADA diet low dose correctional insulin Qualifiers: Diabetes mellitus type: type 2 Diabetes mellitus detention insulin use: without terminal operations manager use Diabetes mellitus complication status: with hyperglycemia Qualified Code(s): E11.65 - Type 2 diabetes mellitus with hyperglycemia (7) DVT prophylaxis Current Visit: Yes Status: Acute Assessment and plan: on xarelto,,continue same (8) Morbid obesity Current Visit: Yes Status: Chronic Assessment and plan: lifestyle modification (9) UTI (urinary tract infection) Current Visit: Yes Status: Acute Assessment and plan: Complicated, recurrent, with hx of MDROs, mgt as in pyelonephritis No evidence of sepsis at this time Qualifiers: Urinary tract infection type: acute pyelonephritis Qualified Code(s): N10 - Acute pyelonephritis - Time Spent With Patient Total time spent is greater than 50% in coordination of care (as documented) at patient's floor/unit and/or counseling patient:
[2017-12-04] MEDS ORDERED: Insulin LISPRO 300 UNITS/3 ML VIAL SQ SCH (21:00)
[2017-12-04] MEDS ORDERED: Gabapentin 100 MG CAPSULE PO SCH (21:00)
[2017-12-04] MEDS ORDERED: Ondansetron 4 MG/2 ML VIAL IVP PRN (21:31)
[2017-12-04] MEDS: *HR* HYDROcodone/Acet 5/325 mg TABLET PO PRN (22:00)
[2017-12-05] MEDS: Cefepime HCl 2,000 MG in Water for inj. (sterile) 20 ML 20 ML IVP SCH ×4 (02:52→23:25)
[2017-12-05] MEDS: *HR* HYDROcodone/Acet 5/325 mg TABLET PO PRN ×2 (04:10→18:17)
[2017-12-05 04:20] LABS: Basophils % 0.5 %; Eosinophils # 0.6 K/mcL (0.0-0.6); Hemoglobin 13.3 g/dL (11.5-15.4); Immature Granulocytes % 0.5 % (0-4); Lymphocytes # 2.5 K/mcL (0.6-4.6); Lymphocytes % 29.6 %; Mean Corpuscular Hemoglobin 31.2 pg (28.0-33.3); Mean Corpuscular Volume 89.2 fL (83.0-100.0); Mean Platelet Volume 10.6 fL (9.4-12.4); Monocytes # 0.7 K/mcL (0.0-1.3); Monocytes % 7.9 %; Neutrophils # 4.6 K/mcL (1.6-8.9); Platelet Count 182 K/mcL (140-400); Red Blood Count 4.26 M/mcL (3.82-4.97); Red Cell Distribution Width 14.5 % (11.5-14.5); Segmented Neutrophils % 54.5 %
[2017-12-05 04:37] LABS: BUN/Creatinine Ratio 23 (6-26); Blood Urea Nitrogen 16 mg/dL (8-23); Calcium 8.1 mg/dL (8.6-10.3); Carbon Dioxide 21 mEq/L (23-29); Chloride 108 mEq/L (98-107); Glucose 113 mg/dL (70-105); Osmolality,Calculated 286 (280-300); Potassium 3.3 mEq/L (3.5-5.1); Sodium 137 mEq/L (136-145); eGFR For African Americans > 60 (> 60); eGFR For Non-African Americans > 60 (> 60)
--- NOTE | 2017-12-05 06:07 | Urology - Consult Note ---
Date of Encounter: 12/05/17 Time of Encounter: 06:05 - Assessment and Plan (1) Renal stone Current Visit: Yes Status: Acute Assessment and plan: The large right renal stone is likely the nidus for her recurrent/persistent UTIs. Labs and vital signs do not suggest sepsis at this time. Stone will require definitive treatment. We will plan on placing a ureteral stent to help minimize risk of obstruction and development of sepsis. Will require staged stone extraction. Patient has been on hospice in the last year but was recently discharged that she is not considered terminal. The reason for hospice was multi-factorial including cardiac issues, debilitated state, recurrent UTIs, etc. Despite her health issues, she wishes to proceed with surgical intervention of the stone. Urology CN:HPI Consult date: 12/05/17 History of present illness: pt known to [facility]. hx of recurrent UTIs. recent UTIs symptoms and flank pain. CT scan reveals. Right nephrolithiasis including 1.8 cm right renal pelvic stone. There is mild prominence of right renal pelvis and proximal right ureter without obstructing calcified right ureteral stone. Review of history shows CT scan last year showed a smaller right renal stone in the same position. Past Med Surg Social Fam HX - Past Medical History Medical history: arthritis, asthma, atrial fibrillation, CHF, COPD, diabetes, GERD, kidney stones, other Psychiatric history: anxiety, depression, panic disorder - Past Surgical History Surgical History: angioplasty/stent, hysterectomy - Social History Smoking Status: Never smoker Smokeless Tobacco Status: No Alcohol use: none Drug use: none - Family History Brother Living Status: Still Living Hx Family Cardiac Disorders: Yes (HTN) Hx Family Endocrine Disorder: Yes (Diabetes) Mother Living Status: Age at : 82 Cause of : low bp Hx Family Cardiac Disorders: Yes (htn) Hx Family Endocrine Disorder: Yes (dm) Father Living Status: Age at : 86 Cause of : fall , dm Hx Family Cardiac Disorders: Yes (CABG x3 HTN diabetes) Hx Family Respiratory Disorders: No Hx Family Cancer: No Hx Family GI Disorders: No Hx Family Endocrine Disorder: Yes Hx Family Neuromuscular Disorders: No Hx Family Neurologic Disorders: No Hx Family HEENT Disorders: No Hx Family Autoimmune Disorders: No Medications and Allergies Promethazine [Phenergan] 25 mg PO Q6HR PRN 06/20/17 [History] HYDROcodone/Acet 5/325 mg [[place] 5-325 mg] 1 tab PO Q6H PRN #28 tablet 06/24/17 [Rx] 3 Allergy/AdvReac Type Severity Reaction Status Date / Time levofloxacin [From Levaquin] Allergy Hives Verified 09/28/16 08:50 Penicillins Allergy Blister Verified 09/28/16 08:50 prednisone Allergy See Verified 09/28/16 08:50 Comments Sulfa (Sulfonamide Allergy Hives Verified 09/28/16 08:50 Antibiotics) Banana AdvReac Severe Blister Verified 09/28/16 08:50 egg AdvReac Severe Throat Verified 09/28/16 08:50 swelling nitrofurantoin AdvReac Severe Bruising Verified 09/28/16 08:50 [From Macrobid] on arms Review of Systems - Constitutional fatigue, fever(s), malaise, weakness - EENT Nose, mouth and throat: dizziness - Cardiovascular no chest pain - Respiratory no cough - Gastrointestinal abdominal pain, nausea - Genitourinary Genitourinary: dysuria, flank pain - Musculoskeletal back pain - Integumentary no erythema - Neurological no confusion - Psychiatric no anxiety - Hematologic/Lymphatic no easy bleeding - Allergic/Immunologic no throat swelling Exam Initial Vital Signs Temp Pulse Resp BP Pulse Ox 97.9 F 85 18 114/84 97 12/04/17 15:10 12/04/17 15:10 12/04/17 15:10 12/04/17 15:10 12/04/17 15:10 - General physical appearance Present: no distress, chronically ill - Eyes Present: PERRL, conjunctiva is clear - ENT Present: normal nares - Neck Present: no masses, no lymphadenopathy - Respiratory Present: normal respiratory effort - Cardiovascular Cardiovascular exam IM: RRR - Abdomen Abdomen: Present: soft (obese), suprapubic tenderness - Integumentary Present: no rash. Absent: disoriented - Neurologic Absent: disoriented, confused - Additional Findings go draining urine with some debris Urology Results - Labs 12/05/17 04:10 12/05/17 04:10 Abnormal lab results Potassium 3.3 mEq/L (3.5-5.1) L 12/05/17 04:10 Chloride 108 mEq/L (98-107) H 12/05/17 04:10 Carbon Dioxide 21 mEq/L (23-29) L 12/05/17 04:10 Glucose 113 mg/dL (70-105) H 12/05/17 04:10 POC Glucose 114 mg/dL (70-99) H 12/04/17 21:50 Calcium 8.1 mg/dL (8.6-10.3) L 12/05/17 04:10 Total Bilirubin 1.4 mg/dL (0.3-1.0) H 12/04/17 15:46 Direct Bilirubin 0.6 mg/dL (0.0-0.2) H 12/04/17 15:46 Alkaline Phosphatase 106 Units/L (34-104) H 12/04/17 15:46 Albumin 3.2 g/dL (3.5-5.7) L 12/04/17 15:46 Globulin 3.8 g/dL (2.4-3.5) H 12/04/17 15:46 Albumin/Globulin Ratio 0.8 (1.1-2.2) L 12/04/17 15:46 Urine Clarity Turbid (Clear) A 12/04/17 15:31 Urine Protein >=300 mg/dL (Neg-Trace) H 12/04/17 15:31 Urine Ketones Trace mg/dL (Negative) H 12/04/17 15:31 Urine Blood Large (Negative) H 12/04/17 15:31 Urine Bilirubin Small (Negative) H 12/04/17 15:31 Ur Leukocyte Esterase Moderate (Negative) H 12/04/17 15:31 Urine Microscopic RBC TNTC per hpf (0-3) H 12/04/17 15:31 Urine Microscopic WBC TNTC per hpf (0-3) H 12/04/17 15:31 Urine Bacteria Many per hpf (None-Few) H 12/04/17 15:31 Ur Culture Indicated? YES (NO) A 12/04/17 15:31 Diabetes panel 12/05/17 Range/Units 04:10 Sodium 137 (136-145) mEq/L Potassium 3.3 L (3.5-5.1) mEq/L Chloride 108 H (98-107) mEq/L Carbon Dioxide 21 L (23-29) mEq/L BUN 16 (8-23) mg/dL Creatinine 0.71 (0.60-1.20) mg/dL Glucose 113 H (70-105) mg/dL Calcium 8.1 L (8.6-10.3) mg/dL Calcium panel 12/05/17 Range/Units 04:10 Calcium 8.1 L (8.6-10.3) mg/dL Pituitary panel 12/05/17 Range/Units 04:10 Sodium 137 (136-145) mEq/L Potassium 3.3 L (3.5-5.1) mEq/L Chloride 108 H (98-107) mEq/L Carbon Dioxide 21 L (23-29) mEq/L BUN 16 (8-23) mg/dL Creatinine 0.71 (0.60-1.20) mg/dL Glucose 113 H (70-105) mg/dL Calcium 8.1 L (8.6-10.3) mg/dL Adrenal panel 12/05/17 Range/Units 04:10 Sodium 137 (136-145) mEq/L Potassium 3.3 L (3.5-5.1) mEq/L Chloride 108 H (98-107) mEq/L Carbon Dioxide 21 L (23-29) mEq/L BUN 16 (8-23) mg/dL Creatinine 0.71 (0.60-1.20) mg/dL Glucose 113 H (70-105) mg/dL Calcium 8.1 L (8.6-10.3) mg/dL All other labs normal. Consult Discharge Plan - Plan Referrals: NONE,PCP [Primary Care Provider] -
[2017-12-05] MEDS: Insulin LISPRO 300 UNITS/3 ML VIAL SQ SCH ×3 (08:45→20:51)
[2017-12-05] MEDS ORDERED: Furosemide 40 MG TABLET PO SCH (09:00)
[2017-12-05] MEDS ORDERED: Silvasorb 44.4 ML TUBE TP SCH (13:15)
--- NOTE | 2017-12-05 14:19 | Internal Med Progress Note ---
<EnzoscoutHarpreet hoyt - Last Filed: 12/05/17 16:48> Date of Encounter: 12/05/17 Time of Encounter: 09:10 - Assessment and plan (1) UTI (urinary tract infection) Current Visit: Yes Status: Acute Assessment and plan: Complicated, recurrent, with hx of MDROs, mgt as in pyelonephritis No evidence of sepsis at this time Qualifiers: Urinary tract infection type: acute pyelonephritis Qualified Code(s): N10 - Acute pyelonephritis (2) Morbid obesity Current Visit: Yes Status: Chronic Assessment and plan: lifestyle modification as outpatient (3) Atrial fibrillation Current Visit: Yes Status: Chronic Assessment and plan: Atrial fibrillation with controlled heart rate on xarelto, Continue home medications. 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 insulin use: without prison use Diabetes mellitus complication status: with hyperglycemia Qualified Code(s): E11.65 - Type 2 diabetes mellitus with hyperglycemia (5) Decubitus ulcer Current Visit: Yes Status: Chronic Assessment and plan: chronic, consult wound care for eval Stage I, present on admission Frequent bed turns per protocol Qualifiers: Pressure ulcer location: buttock Pressure ulcer stage: stage 2 Laterality : unspecified laterality Qualified Code(s): L89.302 - Pressure ulcer of unspecified buttock, stage 2 (6) CAD (coronary artery disease) Current Visit: Yes Status: Chronic Assessment and plan: continue home meds Qualifiers: Coronary Disease-Associated Artery/Lesion type: [place] artery [place] vs. transplanted heart: [place] heart Associated angina: angina presence unspecified Qualified Code(s): I25.10 - Atherosclerotic heart disease of [place] coronary artery without angina pectoris (7) Chronic diastolic (congestive) heart failure Current Visit: No Status: Chronic Assessment and plan: History of heart failure with preserved ejection fraction Appears euvolemic on exam, lower extremity swelling at baseline Monitor fluid status carefully Continue home meds (8) DVT prophylaxis Current Visit: Yes Status: Acute Assessment and plan: on xarelto, for A. fib (9) Pyelonephritis Current Visit: Yes Status: Acute Assessment and plan: - Urinalysis showing signs of infection - CT scan performed emergency department showing right kidney stone, right ureteral inflammation, thickening suggestive of infection - Previous cultures showed Escherichia coli, Klebsiella and multidrug-resistant Escherichia coli in the past - Complicated UTI due to presence of stones. CAT scan shows nonobstructive nephrolithiasis. In right kidney measuring 1.8 cm - Urology has been consulted by the ER team. Plan for right ureteral stent this afternoon - Renal function stable. Plan -Continue cefepime, day #2, follow urine culture - Urology consult as above - Supportive care - Time Spent With Patient Total time spent is greater than 50% in coordination of care (as documented) at patient's floor/unit and/or counseling patient: 25 - 35 minutes - Subjective Interval history: Patient seen and examined at bedside this morning. She states that she is still experiencing some abdominal and flank pain however it has improved slightly since presentation. She is unable to determine dysuria as she is incontinent at baseline. She states the pain is worse on her left flank and diffusely across the abdomen. Denies any symptoms of fevers but does admit to some subjective chills. Denies any symptoms of chest pain, shortness of breath. - Constitutional Vitals: Temp Pulse Resp BP Pulse Ox 98.5 F 75 16 95/61 95 12/05/17 11:54 12/05/17 11:54 12/05/17 11:54 12/05/17 11:54 12/05/17 11:54 General appearance: Present: A&O X 3, morbidly obese, no acute distress Exam: Gen.: Vitals noted. No acute distress. AAOx3. Morbidly obese female lying in bed HEENT: PERRL/EOMI, oropharynx clear, Normocephalic, atraumatic, MMM. Blistering and dry skin surround upper and lower lips. Cardiac: Irregular, no murmur, +S1/S2 Pulmonary: CTA bilaterally, no wheezes, rales or rhonchi, equal chest expansion Abdomen: soft, diffusely tender to palpation, BS noted, no guarding, no rebound. Mulitple scars present. Small area of induration 2cm in center. Extremities: no BLE edema, nontender calf, no cyanosis or clubbing. Bilateral extremities tender to palpation on anterior surface. Neuro: A&Ox3, moves all extremities, no focal deficits Back: Stage I sacral ulcer present and bandaged. Psych: Appropriate mood and behavior Internal Medicine: Result - Labs CBC & Chem 7: 12/05/17 04:10 12/05/17 04:10 Labs: Short CBC 12/05/17 Range/Units 04:10 WBC 8.4 (4.3-11.1) K/mcL Hgb 13.3 (11.5-15.4) g/dL Hct 38.0 (35.3-44.9) % Plt Count 182 (140-400) K/mcL Neutrophils # 4.6 (1.6-8.9) K/mcL BMP 12/05/17 04:10 Sodium 137 Potassium 3.3 L Chloride 108 H Carbon Dioxide 21 L BUN 16 Creatinine 0.71 Glucose 113 H Calcium 8.1 L Consult Discharge Plan - Plan Referrals: NONE,PCP [Primary Care Provider] - <Latesha Bajwa - Last Filed: 12/05/17 17:31> Date of Encounter: 12/05/17 - Assessment and plan (1) DVT prophylaxis Current Visit: Yes Status: Acute (2) CAD (coronary artery disease) Current Visit: Yes Status: Chronic Qualifiers: Coronary Disease-Associated Artery/Lesion type: [place] artery [place] vs. transplanted heart: [place] heart Associated angina: angina presence unspecified Qualified Code(s): I25.10 - Atherosclerotic heart disease of [place] coronary artery without angina pectoris (3) UTI (urinary tract infection) Current Visit: Yes Status: Acute Qualifiers: Urinary tract infection type: acute pyelonephritis Qualified Code(s): N10 - Acute pyelonephritis (4) Morbid obesity Current Visit: Yes Status: Chronic (5) Atrial fibrillation Current Visit: Yes Status: Chronic Qualifiers: Atrial fibrillation type: paroxysmal Qualified Code(s): I48.0 - Paroxysmal atrial fibrillation (6) Diabetes Current Visit: Yes Status: Chronic Qualifiers: Diabetes mellitus type: type 2 Diabetes mellitus prison insulin use: without middle or intermediate school principal use Diabetes mellitus complication status: with hyperglycemia Qualified Code(s): E11.65 - Type 2 diabetes mellitus with hyperglycemia (7) Decubitus ulcer Current Visit: Yes Status: Chronic Qualifiers: Pressure ulcer location: buttock Pressure ulcer stage: stage 2 Laterality : unspecified laterality Qualified Code(s): L89.302 - Pressure ulcer of unspecified buttock, stage 2 (8) Chronic diastolic (congestive) heart failure Current Visit: No Status: Chronic (9) Pyelonephritis Current Visit: Yes Status: Acute - Time Spent With Patient Total time spent is greater than 50% in coordination of care (as documented) at patient's floor/unit and/or counseling patient: - Constitutional Vitals: Temp Pulse Resp BP Pulse Ox 97.6 F 77 98 113/72 98 12/05/17 17:05 12/05/17 17:05 12/05/17 17:05 12/05/17 17:05 12/05/17 16:55 Internal Medicine: Result - Labs CBC & Chem 7: 12/05/17 04:10 12/05/17 04:10 Labs: Short CBC 12/05/17 Range/Units 04:10 WBC 8.4 (4.3-11.1) K/mcL Hgb 13.3 (11.5-15.4) g/dL Hct 38.0 (35.3-44.9) % Plt Count 182 (140-400) K/mcL Neutrophils # 4.6 (1.6-8.9) K/mcL BMP 12/05/17 04:10 Sodium 137 Potassium 3.3 L Chloride 108 H Carbon Dioxide 21 L BUN 16 Creatinine 0.71 Glucose 113 H Calcium 8.1 L - Attending Attestation I examined this patient and my medical decision-making was reviewed with the Resident Physician Dr. Wagoner. I agree with the documented findings, disposition and treatment plan as described except to the extent set forth below. Ms. Golden is a 67 year old female with a past medical history of recurrent UTIs, atrial fibrillation on Xarelto, diastolic CHF, coronary artery disease with prior stent, diabetes type 2 not insulin dependent, SVT presented to the emergency room with complaints of hematuria, bloody urine, associated suprapubic and flank pain and nausea. Pt states she is feeling little better today. Denied any CP / SOB Gen: A, A, O x 3 Chest: Diminished BS b/l Heart: S1S2 Abd: Mild supra pubic discomfort a/p 1. Acute UTI 2. Acute pyelonephritis 3. Rt renal calculi cont empirical ab Urology on board scheduled for stent placement today
--- NOTE | 2017-12-05 14:38 | Anesthesia Evaluation PreOp ---
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 History: CVA (residual left weakness) Other Medical History: Other (obesity BMI=43) Anesthesia History: No Prior Anesthetic Complications, Past Anesthesia Alcohol Use: none Drug use: none Medications and Allergies Promethazine [Phenergan] 25 mg PO Q6HR PRN 06/20/17 [History] HYDROcodone/Acet 5/325 mg [[place] 5-325 mg] 1 tab PO Q6H PRN #28 tablet 06/24/17 [Rx] Fluticasone Propionate [Allergy Relief] 2 spr NS DAILY 12/05/17 [History] Furosemide [Lasix] 40 mg PO DAILY 12/05/17 [History] 3 Allergy/AdvReac Type Severity Reaction Status Date / Time levofloxacin [From Levaquin] Allergy Hives Verified 09/28/16 08:50 Penicillins Allergy Blister Verified 09/28/16 08:50 prednisone Allergy See Verified 09/28/16 08:50 Comments Sulfa (Sulfonamide Allergy Hives Verified 09/28/16 08:50 Antibiotics) Banana AdvReac Severe Blister Verified 09/28/16 08:50 egg AdvReac Severe Throat Verified 09/28/16 08:50 swelling nitrofurantoin AdvReac Severe Bruising Verified 09/28/16 08:50 [From Macrobid] on arms - Meds/Allergy Pre-op Review Medications Reviewed: Yes Allergies Reviewed: Yes Beta Blockers on Current Med List: No Anesthesia Results - Labs 12/05/17 04:10 12/05/17 04:10 - Imaging EKG: report reviewed (03/07/2017 SINUS RHYTHM WITH SINUS ARRHYTHMIA NONSPECIFIC T -WAVE ABNORMALITY) Additional studies: 12/16/2016 Echo Impressions: Technically sub-optimal due to body habitus. LVEF 65%. Grossly normal LV chamber size. Unable to accurately measure wall thickness due to poor image resolution. Mild left ventricular diastolic dysfunction. Grossly normal right ventricular structure and function. Unable to accurately estimate RVSP due to lack of adequate TR jet. No obvious significant valvular dysfunction. 10/04/2016 LEFT HEART CATH Indications: Coronary Artery Disease, Angina Impressions: There is mild three vessel coronary artery disease. The left ventricle is normal and has normal contractility EF 65% Stent placed from a prior procedure in the 2nd Marginal is patent. Recommendations: Optimal medical therapy of patient's disease. Aggressive risk factor modification. Patient being referred for cardiac rehab. Anesthesia Exam Vital Signs/O2 Sat/Glucose, Most Recent Temp Pulse Resp BP Pulse Ox 98.5 F 75 16 95/61 95 12/05/17 11:54 12/05/17 11:54 12/05/17 11:54 12/05/17 11:54 12/05/17 11:54 Blood Glucose* 132 Height: 5'2''/1.57m Weight: 235 lbs/106.6 kg NPO (# of Hours): 8 Pain Scale: 6 (abdomen) Pain Scale Used: Numeric (1 - 10) - HEENT Pupil (Motor): EOMI Mallampati: III Teeth: Poor dentition Oral Opening: Greater than 3 - OCCUPATIONAL THERAPY DEPARTMENT CHAIR LOC: Oriented OCCUPATIONAL THERAPY DEPARTMENT CHAIR Motor: Normal RUE, Normal RLE, Deficit LUE, Deficit LLE, Deficit Face (left face) OCCUPATIONAL THERAPY DEPARTMENT CHAIR Sensory: Normal: RUE, LUE, RLE, LLE, Face - Cardiac Rhythm: Regular Murmur: None - Pulmonary Breath Sounds: bilateral Clear Respiratory Effort: Symmetrical Anesthesia Assess/Plan ASA Score: 3 Modified [place] Scale for Level of Consciousness: Cooperative, oriented, and tranquil Anesthetic Plan: General, MAC Monitoring Plan: Standard Monitors Recovery Plan: PACU
--- NOTE | 2017-12-05 15:02 | Event Note ---
Date of Encounter: 12/05/17 Time of Encounter: 15:01 Patient seen in holding room. Consent reviewed with the patient. She agrees to proceed with cystoscopy and right ureteral stent placement.
[2017-12-05] MEDS ORDERED: Isovue-300 50 ML VIAL IVP ONE (15:07)
[2017-12-05] MEDS ORDERED: *HR* Propofol 200 MG/20 ML VIAL IVP ONE (15:11)
[2017-12-05] MEDS ORDERED: *HR* FentaNYL (PF) 100 MCG/2 ML VIAL ONE (15:11)
[2017-12-05] MEDS ORDERED: Dexamethasone 4 MG/ML VIAL ONE (15:12)
[2017-12-05] MEDS ORDERED: Ondansetron 4 MG/2 ML VIAL ONE (15:12)
[2017-12-05] MEDS ORDERED: Lidocaine -MPF 2% 2 ML VIAL ONE (15:12)
[2017-12-05] MEDS ORDERED: Ketorolac 30 MG/ML VIAL ONE (15:28)
[2017-12-05] MEDS ORDERED: *HR* OxyCODONE Immed Rel 5 MG TABLET PO PRN (15:28)
[2017-12-05] MEDS ORDERED: *HR* PHENYLEPHRINE 1,000 MCG/10 ML SYRINGE IVP ONE (15:47)
--- NOTE | 2017-12-05 16:06 | Operative Note ---
Date of procedure: 12/05/17 Pre-op diagnosis: right renal pelvis stone Post-op diagnosis: same Procedure: Cystoscopy and 6 x 26 cm ureteral stent placement on the right side Anesthesia: GETA Surgeon: Juan Ramon Sandra Was there an nursing assistant present: No Estimated blood loss (cc): 0 Specimen: none Condition: stable Disposition: PACU Procedure in Detail: Patient was prepped and draped in normal sterile fashion. Timeout procedure performed. I then inserted the cystoscope and the patient's bladder. Right ureteral orifice was cannulated using a sensor wire. I then placed a 6 x 26 cm stent with good curl seen in the right kidney and in the bladder. Catheter was replaced back in the bladder. Patient taken to PACU in stable condition
--- NOTE | 2017-12-05 16:58 | Anesthesia Evaluation Post Op ---
Date of Encounter: 12/05/17 Time of Encounter: 16:57 Notes: Patient's vital signs have been reviewed. Patient is stable postoperatively and has adequately recovered from anesthesia. Patient is determined to have stable airway patency and respiratory function including respiratory rate and oxygen saturation. Patient has a stable heart rate, blood pressure and adequate hydration. Patients mental status is acceptable. Patients temperature is appropriate. Pain and nausea are adequately controlled. - Discharge PostOp Status: Transfer Patient to floor
[2017-12-05] MEDS ORDERED: *HR* Rivaroxaban 10 MG TABLET PO SCH (17:00)
[2017-12-05] MEDS ORDERED: *HR* Dextrose 50 % in Water (Syg) 50 ML SYRINGE IVP PRN (17:02)
[2017-12-05] MEDS ORDERED: Dextrose Gel 15 GM/37.5 ML TUBE PO PRN ×2 (17:02)
[2017-12-05] MEDS ORDERED: Ondansetron 4 MG/2 ML VIAL IVP PRN (17:02)
[2017-12-05] MEDS ORDERED: Naloxone 0.4 MG/ML INJ IVP PRN (17:02)
[2017-12-05] MEDS ORDERED: D5% in Water 1,000 ML IVC PRN (17:02)
[2017-12-05] MEDS: Gabapentin 100 MG CAPSULE PO SCH ×2 (20:35→20:39)
[2017-12-06 04:29] LABS: Basophils % 0.1 %; Hematocrit 38.2 % (35.3-44.9); Hemoglobin 13.3 g/dL (11.5-15.4); Immature Granulocytes % 0.6 % (0-4); Lymphocytes # 0.9 K/mcL (0.6-4.6); Lymphocytes % 11.4 %; Mean Corpuscular HGB Conc 34.8 g/dL (31.6-35.5); Mean Platelet Volume 11.1 fL (9.4-12.4); Monocytes # 0.3 K/mcL (0.0-1.3); Monocytes % 3.7 %; Neutrophils # 6.9 K/mcL (1.6-8.9); Platelet Count 174 K/mcL (140-400); Red Blood Count 4.29 M/mcL (3.82-4.97); Red Cell Distribution Width 14.1 % (11.5-14.5); Segmented Neutrophils % 84.2 %
[2017-12-06 04:38] LABS: BUN/Creatinine Ratio 19 (6-26); Blood Urea Nitrogen 17 mg/dL (8-23); Calcium 8.3 mg/dL (8.6-10.3); Carbon Dioxide 18 mEq/L (23-29); Chloride 107 mEq/L (98-107); Glucose 177 mg/dL (70-105); Osmolality,Calculated 286 (280-300); Potassium 3.3 mEq/L (3.5-5.1); Sodium 135 mEq/L (136-145); eGFR For African Americans > 60 (> 60); eGFR For Non-African Americans > 60 (> 60)
--- NOTE | 2017-12-06 07:30 | Urology Progress Note ---
Date of Encounter: 12/06/17 Time of Encounter: 07:28 - Assessment and Plan (1) Renal stone Current Visit: Yes Status: Acute Assessment and plan: Status post successful ureteral stent yesterday. No further urologic intervention at this time. Patient will require an outpatient ureteroscopic stone extraction. Paperwork has been submitted to the urology schedule her we will contact the patient after she is discharged. Because of comorbidities and anticoagulation I do not feel she is a good candidate for a PCNL. Recommend prolonged antibiotics following discharge because of the stone, stent and persistent urinary colonization. Progress Note Narrative: Patient stable overnight. No acute issues Objective Initial Vital Signs Temp Pulse Resp BP Pulse Ox 97.9 F 85 18 114/84 97 12/04/17 15:10 12/04/17 15:10 12/04/17 15:10 12/04/17 15:10 12/04/17 15:10 - General physical appearance Present: no distress - Labs 12/06/17 04:11 12/06/17 04:11 Diabetes panel 12/06/17 Range/Units 04:11 Sodium 135 L (136-145) mEq/L Potassium 3.3 L (3.5-5.1) mEq/L Chloride 107 (98-107) mEq/L Carbon Dioxide 18 L (23-29) mEq/L BUN 17 (8-23) mg/dL Creatinine 0.91 (0.60-1.20) mg/dL Glucose 177 H (70-105) mg/dL Calcium 8.3 L (8.6-10.3) mg/dL Calcium panel 12/06/17 Range/Units 04:11 Calcium 8.3 L (8.6-10.3) mg/dL Pituitary panel 12/06/17 Range/Units 04:11 Sodium 135 L (136-145) mEq/L Potassium 3.3 L (3.5-5.1) mEq/L Chloride 107 (98-107) mEq/L Carbon Dioxide 18 L (23-29) mEq/L BUN 17 (8-23) mg/dL Creatinine 0.91 (0.60-1.20) mg/dL Glucose 177 H (70-105) mg/dL Calcium 8.3 L (8.6-10.3) mg/dL Adrenal panel 12/06/17 Range/Units 04:11 Sodium 135 L (136-145) mEq/L Potassium 3.3 L (3.5-5.1) mEq/L Chloride 107 (98-107) mEq/L Carbon Dioxide 18 L (23-29) mEq/L BUN 17 (8-23) mg/dL Creatinine 0.91 (0.60-1.20) mg/dL Glucose 177 H (70-105) mg/dL Calcium 8.3 L (8.6-10.3) mg/dL - VTE Documentation of Mechanical Device: Intermittent pneumatic compression device Consult Discharge Plan - Plan Referrals: Juan Ramon Sandra MD [Partnered Physician] -
[2017-12-06] MEDS ORDERED: Potassium Chloride 40 MEQ, Lidocaine 1% 2 ML in D5% in Water 500 ML IVPB ONE (07:31)
[2017-12-06] MEDS: Furosemide 40 MG TABLET PO SCH (07:33)
[2017-12-06] MEDS: Insulin LISPRO 300 UNITS/3 ML VIAL SQ SCH ×4 (07:38→22:16)
[2017-12-06] MEDS: Cefepime HCl 2,000 MG in Water for inj. (sterile) 20 ML 20 ML IVP SCH ×2 (07:40→17:11)
[2017-12-06] MEDS: Silvasorb 44.4 ML TUBE TP SCH (07:50)
[2017-12-06] MEDS: *HR* HYDROcodone/Acet 5/325 mg TABLET PO PRN ×2 (07:55→14:07)
[2017-12-06] MEDS ORDERED: Milk and Molasses Enema 200 ML RC ONE (08:32)
--- NOTE | 2017-12-06 10:03 | Internal Med Progress Note ---
<Harpreet Wagoner - Last Filed: 12/06/17 14:37> Date of Encounter: 12/06/17 Time of Encounter: 08:10 - Assessment and plan (1) Pyelonephritis Current Visit: Yes Status: Acute Assessment and plan: - Urinalysis showing signs of infection. Urine culture is grossly mixed and unable to determine causative organism. - CT scan performed emergency department showing right kidney stone, right ureteral inflammation, thickening suggestive of infection - Previous cultures showed Escherichia coli, Klebsiella and multidrug-resistant Escherichia coli in the past - Complicated UTI due to presence of stones. CAT scan shows nonobstructive nephrolithiasis. In right kidney measuring 1.8 cm - Urology has been consulted by the ER team. Status post right ureteral stent placement. Neurology recommends long-term antibiotics for retained stone as well as outpatient urology follow-up for eventual stone removal - Renal function stable. Plan -Continue cefepime, day #3, follow urine culture - Urology consult as above. - Will also consult ID for antibiotic management and duration. - Will obtain a repeat culture for urine. - Supportive care (2) UTI (urinary tract infection) Current Visit: Yes Status: Acute Assessment and plan: Complicated, recurrent, with hx of MDROs, mgt as in pyelonephritis No evidence of sepsis at this time As above for pyelonephritis Qualifiers: Urinary tract infection type: acute pyelonephritis Qualified Code(s): N10 - Acute pyelonephritis (3) Morbid obesity Current Visit: Yes Status: Chronic Assessment and plan: lifestyle modification as outpatient (4) Atrial fibrillation Current Visit: Yes Status: Chronic Assessment and plan: Atrial fibrillation with controlled heart rate on xarelto, Continue home medications. Heart rate in 70s Qualifiers: Atrial fibrillation type: paroxysmal Qualified Code(s): I48.0 - Paroxysmal atrial fibrillation (5) Diabetes Current Visit: Yes Status: Chronic Assessment and plan: FS ACHS ADA diet low dose correctional insulin Blood sugar of 119 this morning A1c of 4.8% in June 2017 Qualifiers: Diabetes mellitus type: type 2 Diabetes mellitus keno terminal operator insulin use: without keno terminal operator use Diabetes mellitus complication status: with hyperglycemia Qualified Code(s): E11.65 - Type 2 diabetes mellitus with hyperglycemia (6) Decubitus ulcer Current Visit: Yes Status: Chronic Assessment and plan: chronic, consult wound care for eval Stage I, present on admission Frequent bed turns per protocol Qualifiers: Pressure ulcer location: buttock Pressure ulcer stage: stage 2 Laterality : unspecified laterality Qualified Code(s): L89.302 - Pressure ulcer of unspecified buttock, stage 2 (7) CAD (coronary artery disease) Current Visit: Yes Status: Chronic Assessment and plan: continue home meds. Continue BB. Wound benefit from statin and ASA after discharge. Qualifiers: Coronary Disease-Associated Artery/Lesion type: [place] artery [place] vs. transplanted heart: [place] heart Associated angina: angina presence unspecified Qualified Code(s): I25.10 - Atherosclerotic heart disease of [place] coronary artery without angina pectoris (8) Chronic diastolic (congestive) heart failure Current Visit: No Status: Chronic Assessment and plan: History of heart failure with preserved ejection fraction Appears euvolemic on exam, lower extremity swelling at baseline Monitor fluid status carefully Continue home meds (9) DVT prophylaxis Current Visit: Yes Status: Acute Assessment and plan: on xarelto, for A. fib (10) Hypokalemia Current Visit: Yes Status: Acute Assessment and plan: - Potassium 3.3 this morning - Patient states she refused her dose yesterday as she is unable to tolerate oral potassium due to nausea - Replace as needed with IV K - Daily labs (11) Colitis Current Visit: Yes Status: Acute Assessment and plan: - Evidence of Stercoral colitis with large stool burden on CT scan in emergency department - Patient has been complaining of intermittent diarrhea for the past 2 days - She is incontinent of bowel at baseline - Per nursing report, she has had frequent bowel movements the past 2 days which had been medium to large and thicker Plan - For now as this is less likely to be impaction with diarrhea flowing around given consistency or nursing - Continue cefepime as above, will consider Flagyl if no improvement as well as further evaluation for impaction - Time Spent With Patient Total time spent is greater than 50% in coordination of care (as documented) at patient's floor/unit and/or counseling patient: 25 - 35 minutes - Subjective Interval history: Patient seen and examined at bedside this morning. She states that her pain is overall better with no complaints today of flank plain. Denies any continuing symptoms of dysuria although she does remain incontinent of urine and bowel. States she has been having difficulty with diarrhea over the past 3 days. Denies any symptoms of fevers, chills, nausea, vomiting. - Constitutional Vitals: Temp Pulse Resp BP Pulse Ox 97.5 F L 58 16 97/63 94 12/06/17 07:14 12/06/17 07:14 12/06/17 07:14 12/06/17 07:14 12/06/17 07:14 General appearance: Present: A&O X 3, morbidly obese, no acute distress Exam: Gen.: Vitals noted. No acute distress. AAOx3 HEENT: PERRL/EOMI, oropharynx clear, Normocephalic, atraumatic, MMM Cardiac: Irregular rhythm, no murmur, +S1/S2 Pulmonary: CTA bilaterally, no wheezes, rales or rhonchi, equal chest expansion Abdomen: soft, tender to palpation in right lower quadrant and left lower quadrant, BS noted, no guarding Back: Nontender throughout. No flank pain/tenderness Extremities: Mild BLE edema, nontender calf, no cyanosis or clubbing. Some tenderness to palpation of anterior lower extremities : Sanchez catheter in place with red tinged urine Neuro: A&Ox3, moves all extremities, no focal deficits Psych: Appropriate mood and behavior Internal Medicine: Result - Labs CBC & Chem 7: 12/06/17 04:11 12/06/17 04:11 Labs: Short CBC 12/06/17 Range/Units 04:11 WBC 8.2 (4.3-11.1) K/mcL Hgb 13.3 (11.5-15.4) g/dL Hct 38.2 (35.3-44.9) % Plt Count 174 (140-400) K/mcL Neutrophils # 6.9 (1.6-8.9) K/mcL BMP 12/06/17 04:11 Sodium 135 L Potassium 3.3 L Chloride 107 Carbon Dioxide 18 L BUN 17 Creatinine 0.91 Glucose 177 H Calcium 8.3 L - VTE Documentation of Mechanical Device: Intermittent pneumatic compression device Consult Discharge Plan - Plan Referrals: Juan Ramon Sandra MD [Partnered Physician] - <Narcisa Crowell - Last Filed: 12/06/17 17:01> Date of Encounter: 12/06/17 - Assessment and plan (1) DVT prophylaxis Current Visit: Yes Status: Acute (2) CAD (coronary artery disease) Current Visit: Yes Status: Chronic Qualifiers: Coronary Disease-Associated Artery/Lesion type: [place] artery [place] vs. transplanted heart: [place] heart Associated angina: angina presence unspecified Qualified Code(s): I25.10 - Atherosclerotic heart disease of [place] coronary artery without angina pectoris (3) UTI (urinary tract infection) Current Visit: Yes Status: Acute Qualifiers: Urinary tract infection type: acute pyelonephritis Qualified Code(s): N10 - Acute pyelonephritis (4) Morbid obesity Current Visit: Yes Status: Chronic (5) Atrial fibrillation Current Visit: Yes Status: Chronic Qualifiers: Atrial fibrillation type: paroxysmal Qualified Code(s): I48.0 - Paroxysmal atrial fibrillation (6) Diabetes Current Visit: Yes Status: Chronic Qualifiers: Diabetes mellitus type: type 2 Diabetes mellitus keno terminal operator insulin use: without keno terminal operator use Diabetes mellitus complication status: with hyperglycemia Qualified Code(s): E11.65 - Type 2 diabetes mellitus with hyperglycemia (7) Hypokalemia Current Visit: Yes Status: Acute (8) Decubitus ulcer Current Visit: Yes Status: Chronic Qualifiers: Pressure ulcer location: buttock Pressure ulcer stage: stage 2 Laterality : unspecified laterality Qualified Code(s): L89.302 - Pressure ulcer of unspecified buttock, stage 2 (9) Chronic diastolic (congestive) heart failure Current Visit: No Status: Chronic (10) Pyelonephritis Current Visit: Yes Status: Acute (11) Colitis Current Visit: Yes Status: Acute - Time Spent With Patient Total time spent is greater than 50% in coordination of care (as documented) at patient's floor/unit and/or counseling patient: - Constitutional Vitals: Temp Pulse Resp BP Pulse Ox 97.6 F 67 16 101/63 94 12/06/17 15:00 12/06/17 15:00 12/06/17 15:00 12/06/17 15:00 12/06/17 15:00 Internal Medicine: Result - Labs CBC & Chem 7: 12/06/17 04:11 12/06/17 04:11 Labs: Short CBC 12/06/17 Range/Units 04:11 WBC 8.2 (4.3-11.1) K/mcL Hgb 13.3 (11.5-15.4) g/dL Hct 38.2 (35.3-44.9) % Plt Count 174 (140-400) K/mcL Neutrophils # 6.9 (1.6-8.9) K/mcL BMP 12/06/17 04:11 Sodium 135 L Potassium 3.3 L Chloride 107 Carbon Dioxide 18 L BUN 17 Creatinine 0.91 Glucose 177 H Calcium 8.3 L - Attending Attestation I performed a history and physical examination of the patient and discussed his/ her management with the resident. I reviewed the residents note and agree with the documented findings and plan of care. Right ureteral stent placed yesterday, doing well. Physical exam shows mild TTP in RLQ and LLQ. Having bowel movements and symptoms have improved. 1. Complicated UTI - Continue Cefepime, consult ID 2. Nephrolithiasis - status-post stent placement 3. Colitis - caused by stercoral ulcer - now having BMs, symptoms some-what improved. 4. Ovarian lesion - Will arrange for PCP to follow-up imaging. 5. Atrial fibrillation 6. Diabetes Mellitus
--- NOTE | 2017-12-06 13:40 | Infectious Disease Consult ---
Date of Encounter: 12/06/17 Time of Encounter: 13:38 Assessment and Plan (1) Pyelonephritis Status: Acute Assessment and plan: Causative organism unclear. Likely secondary to kidney stone per Urology. CT scan showed right nephrolithiasis including a right 1.8cm right renal pelvic stone with mild prominence of the right renal pelvis and proximal right ureter without obstructing calcified right ureteral stone and suspected right urothelial thickening concerning for obstructive uropathy or inflammation/ infection. Urology consulted and following. Status post cystoscopy with right ureteral stent placement 12/05/[address] Marie[address] Spoke with Dr. Marie who states there was a lot of debris intra-op, but it is difficult to tell if it was coming from the bladder or the kidney due to kidney spasm intra-op. Urine culture obtained on admission was interpreted as grossly mixed bina. Blood culture drawn 12/04/17 x 1 set is NGTD. Repeat urine culture now. De-escalate antibiotics if/when able. Continue cefepime, but decrease to 2 grams IV Q12H. Duration of treatment depends on the clinical picture. Monitor renal function and dose-adjust antibiotics. (2) Acute cystitis with hematuria Status: Acute Assessment and plan: Causative organism: unclear. Complicated due to the presence of ureteral stent. Likely secondary to kidney stone per Urology. Urology consulted and following. Continue antibiotics as above. Go management per the urology team. (3) Renal stone Status: Acute Assessment and plan: Location: Right renal pelvis, approximately 1.8cm. Status post ureteral stent placement 12/05/[address] Marie. (4) Colitis Status: Acute Assessment and plan: CT scan of the abdomen and pelvis showed marked dilation of the rectosigmoid colon which also shows wall thickening and adjacent stranding concerning for stercoral colitis. Likely secondary to fecal impaction. No antibiotics required. Bowel regimen per the primary team. Consider GI consult for chronic diarrhea. (5) Atrial fibrillation Status: Chronic Assessment and plan: Rate controlled. Management per the primary team. Qualifiers: Atrial fibrillation type: paroxysmal Qualified Code(s): I48.0 - Paroxysmal atrial fibrillation (6) Chronic diastolic (congestive) heart failure Status: Chronic (7) Decubitus ulcer Status: Chronic Assessment and plan: Recommend wound care consult for dressing recommendations. Aggressive offloading. Qualifiers: Pressure ulcer location: buttock Pressure ulcer stage: stage 2 Laterality : unspecified laterality Qualified Code(s): L89.302 - Pressure ulcer of unspecified buttock, stage 2 (8) Diabetes Status: Chronic Assessment and plan: Controlled. HgbA1C 4.8% 06/2017. Recommend aggressive glucose monitoring and control to promote wound healing and prevent re-infection. Management per the primary team. Qualifiers: Diabetes mellitus type: type 2 Diabetes mellitus rat exterminator insulin use: without penitentiary use Diabetes mellitus complication status: with hyperglycemia Qualified Code(s): E11.65 - Type 2 diabetes mellitus with hyperglycemia (9) Morbid obesity Status: Chronic (10) Pelvic mass Status: Acute Assessment and plan: CT scan showed a 5.4 x 4.8cm cystic focus adjacent to or within the right ovary. Etiology unclear. ASSOCIATE STORE DIRECTOR consult as outpatient. Infectious Disease HPI - Data of Consult Patient: new to practice Consult date: 12/06/17 Requesting Physician: Maricruz Woods MD Primary Care Provider: PCP NONE - Consult Narrative Reason for consult: Pyelonephritis, History of MDR UTI History of present illness: Ms. Golden is a 67 year old female with a past medical history of chronic UTIs and MDRO, bowel and bladder incontinence, a-fib on Xarelto, diabetes mellitus on oral antihyperglycemics, kidney stones, COPD, and CHF. The patient was admitted to the hospital 12/04/17 for UTI, colitis, and sacral decubitus ulcer. We are consulted 12/06/17 for antibiotic recommendations for pyelonephritis. Briefly, the patient is a 67 year old female with a past medical history as stated above. The patient presented to the ER with complaints of nausea and vomiting prior to admission followed by abdominal pain and hematuria that started the day prior to admission. Upon arrival to the ER, the patient was afebrile and hemodynamically stable. Labs revealed a normal WBC, serum creatinine, and lactic acid. Urinalysis was obtained and was positive for large amount of blood, moderate leukocyte esterase, TNTC WBC, many bacteria, and no epithelial cells. The culture was interpreted as grossly mixed bina. She had a CT of the abdomen and pelvis that showed dilatation of the rectosigmoid colon which also shows wall thickening and adjacent stranding concerning for stercoral colitis. There was also noted to be full right renal pelvic stones including a large 1.8; calculus within the right renal pelvis approaching the right UPJ as well as right urothelial thickening concerning for obstructive uropathy or inflammation/infection. She was also noted to have a mild prominence of the right renal pelvis and proximal right ureter without obstructing calcified ureteral stone. There was perivesical fat stranding concerning for cystitis as well as a very large amount of stool within the very distended rectosigmoid colon and wall thickening of the rectosigmoid colon as well as moderate amount of associated pericolic fat stranding. She was given Cefepime and Flagyl and admitted to the hospital for further evaluation. Since admission, the patient has remained afebrile and hemodynamically stable. Her WBC has remained normal. She was evaluated by urology and was taken to the OR on 12/04/17 and had a cystoscopy with ureteral stent placement. She continues to have hematuria. She is currently on Cefepime 2 grams IV Q8H. We've been asked to evaluate and make further recommendations. During my exam today, the patient states that she had nausea with vomiting last despite taking oral antiemetics. She reports chronic intermittent chills, but denies any fevers or rigors. She denies headache or neck pain. Denies congestion, earache, or sore throat. Denies chest pain, shortness of breath, or cough. Reports nausea and vomiting as above, but denies any currently. She states she began to have diffuse abdominal cramping on Tuesday. She has chronic diarrhea that seems to be at baseline. She is unsure why she has chronic diarrhea or why she is incontinent. She had a chronic go catheter until July. She states she developed her decubitus ulcer to her sacrum when she was in the [place] back in September. She states it is getting better and denies any known foul odor or drainage. She reports she developed bilateral flank pain, right worse than left, with hematuria on Tuesday and became concerned that she had developed a UTI. She denies oral thrush or additional skin lesions. She states she is normally able to ambulate with assistance and with a walker. The patient lives at home alone. She denies tobacco, alcohol, or illicit drug use. She does not work outside the home. CC: Maricruz Woods MD Past Med Surg Social Fam HX - Past Medical History Attestation: Yes The following information was validated with the patient. Source: patient, old records reviewed, nursing notes reviewed Medical history: arthritis, asthma, atrial fibrillation (Xarelto), CHF, COPD, diabetes, GERD, kidney stones, other Psychiatric history: anxiety, depression, panic disorder - Past Surgical History Surgical History: angioplasty/stent, hysterectomy - Social History Smoking Status: Never smoker Smokeless Tobacco Status: No Alcohol use: none Drug use: none - Family History Brother Living Status: Still Living Hx Family Cardiac Disorders: Yes (HTN) Hx Family Endocrine Disorder: Yes (Diabetes) Mother Living Status: Age at : 82 Cause of : low bp Hx Family Cardiac Disorders: Yes (htn) Hx Family Endocrine Disorder: Yes (dm) Father Living Status: Age at : 86 Cause of : fall , dm Hx Family Cardiac Disorders: Yes (CABG x3 HTN diabetes) Hx Family Respiratory Disorders: No Hx Family Cancer: No Hx Family GI Disorders: No Hx Family Endocrine Disorder: Yes Hx Family Neuromuscular Disorders: No Hx Family Neurologic Disorders: No Hx Family HEENT Disorders: No Hx Family Autoimmune Disorders: No Infectious Disease-CN:Meds Promethazine [Phenergan] 25 mg PO Q6HR PRN 06/20/17 [History] HYDROcodone/Acet 5/325 mg [[place] 5-325 mg] 1 tab PO Q6H PRN #28 tablet 06/24/17 [Rx] Fluticasone Propionate [Allergy Relief] 2 spr NS DAILY 12/05/17 [History] Furosemide [Lasix] 40 mg PO DAILY 12/05/17 [History] Patient Taking Own Medication 1 each PO AD 12/06/17 [History] 3 Allergy/AdvReac Type Severity Reaction Status Date / Time levofloxacin [From Levaquin] Allergy Hives Verified 09/28/16 08:50 Penicillins Allergy Blister Verified 09/28/16 08:50 prednisone Allergy See Verified 09/28/16 08:50 Comments Sulfa (Sulfonamide Allergy Hives Verified 09/28/16 08:50 Antibiotics) Banana AdvReac Severe Blister Verified 09/28/16 08:50 egg AdvReac Severe Throat Verified 09/28/16 08:50 swelling nitrofurantoin AdvReac Severe Bruising Verified 09/28/16 08:50 [From Macrobid] on arms All systems: reviewed and no additional remarkable complaints except as stated Exam - Constitutional Vitals: Temp Pulse Resp BP Pulse Ox 97.6 F 59 16 104/64 96 12/06/17 11:53 12/06/17 11:53 12/06/17 11:53 12/06/17 11:53 12/06/17 11:53 General appearance: cooperative, no acute distress, obese - Head Head exam: Present: atraumatic, normal inspection, normocephalic - Eye Eye exam: Present: EOMI, normal appearance, PERRL Pupils: Present: normal accommodation - ENT ENT exam: Present: mucous membranes moist Additional comments: Poor dentition noted. No gum swelling, pain, or abscess noted. Several teeth missing. - Neck Neck exam: Present: normal inspection - Respiratory Respiratory exam: Present: CTAB. Absent: rales, respiratory distress, rhonchi, wheezes - Cardiovascular Cardiovascular exam: Present: irregular rhythm. Absent: tachycardia - GI/Abdominal GI/Abdominal exam: Present: distended (obese), normal bowel sounds, soft, tenderness (generalized) - Extremities Exam Extremities exam: Present: pedal edema (1+ BLE). Absent: joint swelling, tenderness - Back Exam Back exam: Present: CVA tenderness (L), CVA tenderness (R) Additional comments: Sacral wound dressing C/D/I. - Neurological Exam Neurological exam: Present: alert, oriented X3, no focal deficits - Psychiatric Psychiatric exam: Present: normal affect, normal mood - Skin Skin exam: Present: dry, intact, normal color, warm - Additional findings Additional findings: Go catheter noted to be draining cloudy, bloody urine. Infectious Disease CN: Results - Labs CBC & Chem 7: 12/06/17 04:11 12/06/17 04:11 Cultures: Cultures 12/04/17 15:31 Urine Culture - Final Urine,Clean Catch Culture is grossly mixed, unable to properly interpret. Please repeat if indicated. 12/04/17 17:18 Blood Culture - Preliminary Peripheral Venipuncture No growth. - VTE Documentation of Mechanical Device: Intermittent pneumatic compression device Consult Discharge Plan - Plan Referrals: Juan Ramon Marie MD [Partnered Physician] - - Attending Attestation I examined this patient and my medical decision-making was reviewed with the Resident Physician. I agree with the documented findings, disposition and treatment plan as described except to the extent set forth below. Report dictated by Bela Elise CNP. Please refer to Geoffrey note for full detail. Patient is a 70-year-old woman with past medical history mentioned above including chronic UTIs and history of chronic indwelling Go catheter. Exact details is not clear. Agent came in complaining of nausea or vomiting, pain and chills at home but no fever. Patient came in had a CT abdomen pelvis which mentions a nephrolithiasis that is about 1.8 cm, stranding around the bladder concerning for cystitis and there was a fluid-filled mass close to the ovary that was not there before. Patient had urine culture obtained but there was multiple organisms so they were unable to get a proper culture. Patient was started empirically on cefepime was taken by Dr. marie yesterday where a cystoscopy with stent placement. I did speak with Dr. marie regarding the case and he said that there was a lot of debris and there was some purulence but he was not sure if it was coming from the kidney itself since the patients kidney was spasming throughout the procedure. Currently patient appears comfortable sitting up in bed eating had a bowel movement today. States that he feels much better. Urine with significant hematuria still. Assessment and plan: Pyelonephritis Complicated UTI Stercoral Colitis Ovary and lesion History of multidrug resistant UTI Multiple allergies to antibiotic: Penicillin, levofloxacin, sulfa, Macrobid all cause her to have blisters and hives At this point continue cefepime, dose adjust 2 g IV every 12 hours Repeat urine culture Duration of treatment depends on clinical picture and the culture results but likely 14 days Monitor labs and for drug toxicity
[2017-12-06] MEDS: *HR* Rivaroxaban 10 MG TABLET PO SCH (17:10)
[2017-12-06] MEDS: Gabapentin 100 MG CAPSULE PO SCH (22:16)
[2017-12-07 05:34] LABS: Basophils % 0.4 %; Eosinophils # 0.1 K/mcL (0.0-0.6); Eosinophils % 1.9 %; Hematocrit 37.1 % (35.3-44.9); Hemoglobin 12.7 g/dL (11.5-15.4); Immature Granulocytes % 0.4 % (0-4); Lymphocytes # 1.9 K/mcL (0.6-4.6); Lymphocytes % 25.9 %; Mean Corpuscular HGB Conc 34.2 g/dL (31.6-35.5); Mean Corpuscular Hemoglobin 30.3 pg (28.0-33.3); Mean Corpuscular Volume 88.5 fL (83.0-100.0); Mean Platelet Volume 10.6 fL (9.4-12.4); Monocytes # 0.6 K/mcL (0.0-1.3); Monocytes % 8.7 %; Neutrophils # 4.6 K/mcL (1.6-8.9); Platelet Count 180 K/mcL (140-400); Red Blood Count 4.19 M/mcL (3.82-4.97); Red Cell Distribution Width 14.5 % (11.5-14.5); Segmented Neutrophils % 62.7 %
[2017-12-07] MEDS: Cefepime HCl 2,000 MG in Water for inj. (sterile) 20 ML 20 ML IVP SCH ×2 (05:34→17:14)
[2017-12-07 05:49] LABS: BUN/Creatinine Ratio 23 (6-26); Blood Urea Nitrogen 17 mg/dL (8-23); Calcium 8.4 mg/dL (8.6-10.3); Carbon Dioxide 22 mEq/L (23-29); Chloride 108 mEq/L (98-107); Glucose 114 mg/dL (70-105); Osmolality,Calculated 286 (280-300); Potassium 3.4 mEq/L (3.5-5.1); Sodium 137 mEq/L (136-145); eGFR For African Americans > 60 (> 60); eGFR For Non-African Americans > 60 (> 60)
[2017-12-07] MEDS: Insulin LISPRO 300 UNITS/3 ML VIAL SQ SCH ×4 (07:52→20:54)
[2017-12-07] MEDS: Furosemide 40 MG TABLET PO SCH (09:10)
--- NOTE | 2017-12-07 13:55 | Internal Med Progress Note ---
<Harpreet Wagoner - Last Filed: 12/07/17 13:53> Date of Encounter: 12/07/17 Time of Encounter: 08:25 - Assessment and plan (1) Pyelonephritis Current Visit: Yes Status: Acute Assessment and plan: - Urinalysis showing signs of infection. Urine culture is grossly mixed and unable to determine causative organism. Repeat culture pending. - CT scan performed emergency department showing right kidney stone, right ureteral inflammation, thickening suggestive of infection - Previous cultures showed Escherichia coli, Klebsiella and multidrug-resistant Escherichia coli in the past - Complicated UTI due to presence of stones. CAT scan shows nonobstructive nephrolithiasis. In right kidney measuring 1.8 cm - Urology has been consulted by the ER team. Status post right ureteral stent placement on 12/05/17. Urology recommends long-term antibiotics for retained stone as well as outpatient urology follow-up for eventual stone removal - Renal function stable. - ID consulted for antibiotic recommendations. Input appreciated. Plan -Continue cefepime, day #4, follow urine culture - Will deescalate as able pending culture and sensitivities. - Urology and ID consult as above. - Supportive care (2) UTI (urinary tract infection) Current Visit: Yes Status: Acute Assessment and plan: Complicated, recurrent, with hx of MDROs, mgt as in pyelonephritis No evidence of sepsis at this time As above for pyelonephritis Qualifiers: Urinary tract infection type: acute pyelonephritis Qualified Code(s): N10 - Acute pyelonephritis (3) Morbid obesity Current Visit: Yes Status: Chronic Assessment and plan: lifestyle modification as outpatient (4) Atrial fibrillation Current Visit: Yes Status: Chronic Assessment and plan: Atrial fibrillation with controlled heart rate on xarelto, Continue home medications. Heart rate in 70s Started on Coreg here. Tolerating well with boarderline HoTN Qualifiers: Atrial fibrillation type: paroxysmal Qualified Code(s): I48.0 - Paroxysmal atrial fibrillation (5) Diabetes Current Visit: Yes Status: Chronic Assessment and plan: FS ACHS ADA diet low dose correctional insulin Blood sugar of 105 this morning A1c of 4.8% in June 2017 Qualifiers: Diabetes mellitus type: type 2 Diabetes mellitus manager terminal insulin use: without skilled nursing use Diabetes mellitus complication status: with hyperglycemia Qualified Code(s): E11.65 - Type 2 diabetes mellitus with hyperglycemia (6) Decubitus ulcer Current Visit: Yes Status: Chronic Assessment and plan: chronic, consult wound care for eval Stage I, present on admission Frequent bed turns per protocol Qualifiers: Pressure ulcer location: buttock Pressure ulcer stage: stage 2 Laterality : unspecified laterality Qualified Code(s): L89.302 - Pressure ulcer of unspecified buttock, stage 2 (7) CAD (coronary artery disease) Current Visit: Yes Status: Chronic Assessment and plan: continue home meds. Reportedly was not taking BB, ASA, statin, TAMARA. History of CAD with 1 stent placed. Continue BB. Wound benefit from statin and ASA after discharge. Qualifiers: Coronary Disease-Associated Artery/Lesion type: zuni artery [place] vs. transplanted heart: zuni heart Associated angina: angina presence unspecified Qualified Code(s): I25.10 - Atherosclerotic heart disease of zuni coronary artery without angina pectoris (8) Chronic diastolic (congestive) heart failure Current Visit: No Status: Chronic Assessment and plan: History of heart failure with preserved ejection fraction Appears euvolemic on exam, lower extremity swelling at baseline Monitor fluid status carefully Continue home meds (9) DVT prophylaxis Current Visit: Yes Status: Acute Assessment and plan: on xarelto, for A. fib (10) Hypokalemia Current Visit: Yes Status: Acute Assessment and plan: - Potassium 3.4 this morning - Patient states she refused her dose yesterday as she is unable to tolerate oral potassium due to nausea - Replace as needed with IV K - Daily labs (11) Colitis Current Visit: Yes Status: Acute Assessment and plan: - Evidence of Stercoral colitis with large stool burden on CT scan in emergency department - Patient has been complaining of intermittent diarrhea for the past 3 days - She is incontinent of bowel at baseline - Per nursing report, she has had frequent bowel movements which had been medium to large and thicker Plan - For now as this is less likely to be impaction with diarrhea flowing around given consistency or nursing - Will obtain KUB to assess for improvement of obstruction. Pending. - Continue cefepime as above, will consider Flagyl if no improvement as well as further evaluation for impaction - Consider GI consult if no improvement. - Time Spent With Patient Total time spent is greater than 50% in coordination of care (as documented) at patient's floor/unit and/or counseling patient: 25 - 35 minutes - Subjective Interval history: Patient seen and examined at bedside this morning. She states that overall her pain is mildly improved from admission. Still admits to aching pain located in bilateral lower quadrants. Admits to large bowel movements last evening and this morning. States that they are mostly liquid but do have some substance. Denies symptoms of fevers, chills, nausea, vomiting. When asked about her cardiac history she states she has 1 stent and stopped taking her BB due to boarderline hypotension and just stopped taking aspirin. - Constitutional Vitals: Temp Pulse Resp BP Pulse Ox 98.3 F 88 16 102/67 100 12/07/17 10:00 12/07/17 10:00 12/07/17 10:00 12/07/17 10:12/07/17 10:00 General appearance: Present: A&O X 3, morbidly obese, no acute distress Exam: Gen.: Vitals noted. No acute distress. AAOx3 HEENT: PERRL/EOMI, oropharynx clear, Normocephalic, atraumatic Cardiac: RRR, no murmur, +S1/S2 Pulmonary: CTA bilaterally, no wheezes, rales or rhonchi, equal chest expansion Abdomen: soft, tender to palpation diffusely worse, in LLQ, RLQ. Mildly improved. Mildly distended. BS noted, no guarding Back: Mild B/l CVA tenderness, improved. MSK: ROM intact, no joint swelling noted : Sanchez catheter in place with hematuria. Extremities: mild non pitting BLE edema, nontender calf, no cyanosis or clubbing Neuro: A&Ox3, moves all extremities, no focal deficits Psych: Appropriate mood and behavior Internal Medicine: Result - Labs CBC & Chem 7: 12/07/17 05:05 12/07/17 05:05 Labs: Short CBC 12/07/17 Range/Units 05:05 WBC 7.4 (4.3-11.1) K/mcL Hgb 12.7 (11.5-15.4) g/dL Hct 37.1 (35.3-44.9) % Plt Count 180 (140-400) K/mcL Neutrophils # 4.6 (1.6-8.9) K/mcL BMP 12/07/17 05:05 Sodium 137 Potassium 3.4 L Chloride 108 H Carbon Dioxide 22 L BUN 17 Creatinine 0.75 Glucose 114 H Calcium 8.4 L - VTE Documentation of Mechanical Device: Intermittent pneumatic compression device Consult Discharge Plan - Plan Referrals: Juan Ramon Sandra MD [Partnered Physician] - <NatashaceliarommelRuma Nicosean - Last Filed: 12/07/17 20:37> Date of Encounter: 12/07/17 - Assessment and plan (1) DVT prophylaxis Current Visit: Yes Status: Acute (2) CAD (coronary artery disease) Current Visit: Yes Status: Chronic Qualifiers: Coronary Disease-Associated Artery/Lesion type: zuni artery [place] vs. transplanted heart: zuni heart Associated angina: angina presence unspecified Qualified Code(s): I25.10 - Atherosclerotic heart disease of zuni coronary artery without angina pectoris (3) UTI (urinary tract infection) Current Visit: Yes Status: Acute Qualifiers: Urinary tract infection type: acute pyelonephritis Qualified Code(s): N10 - Acute pyelonephritis (4) Morbid obesity Current Visit: Yes Status: Chronic (5) Atrial fibrillation Current Visit: Yes Status: Chronic Qualifiers: Atrial fibrillation type: paroxysmal Qualified Code(s): I48.0 - Paroxysmal atrial fibrillation (6) Diabetes Current Visit: Yes Status: Chronic Qualifiers: Diabetes mellitus type: type 2 Diabetes mellitus manager terminal insulin use: without skilled nursing use Diabetes mellitus complication status: with hyperglycemia Qualified Code(s): E11.65 - Type 2 diabetes mellitus with hyperglycemia (7) Hypokalemia Current Visit: Yes Status: Acute (8) Decubitus ulcer Current Visit: Yes Status: Chronic Qualifiers: Pressure ulcer location: buttock Pressure ulcer stage: stage 2 Laterality : unspecified laterality Qualified Code(s): L89.302 - Pressure ulcer of unspecified buttock, stage 2 (9) Chronic diastolic (congestive) heart failure Current Visit: No Status: Chronic (10) Pyelonephritis Current Visit: Yes Status: Acute (11) Colitis Current Visit: Yes Status: Acute - Time Spent With Patient Total time spent is greater than 50% in coordination of care (as documented) at patient's floor/unit and/or counseling patient: - Constitutional Vitals: Temp Pulse Resp BP Pulse Ox 97.7 F 63 16 98/65 95 12/07/17 18:53 12/07/17 18:53 12/07/17 18:53 12/07/17 18:53 12/07/17 18:53 Internal Medicine: Result - Labs CBC & Chem 7: 12/07/17 05:05 12/07/17 05:05 Labs: Short CBC 12/07/17 Range/Units 05:05 WBC 7.4 (4.3-11.1) K/mcL Hgb 12.7 (11.5-15.4) g/dL Hct 37.1 (35.3-44.9) % Plt Count 180 (140-400) K/mcL Neutrophils # 4.6 (1.6-8.9) K/mcL BMP 12/07/17 05:05 Sodium 137 Potassium 3.4 L Chloride 108 H Carbon Dioxide 22 L BUN 17 Creatinine 0.75 Glucose 114 H Calcium 8.4 L - Attending Attestation I performed a history and physical examination of the patient and discussed his/ her management with the resident. I reviewed the residents note and agree with the documented findings and plan of care.
--- NOTE | 2017-12-07 14:05 | Infectious Disease Progress No ---
Date of Encounter: 12/07/17 Time of Encounter: 14:05 - Assessment and Plan (1) Pyelonephritis Current Visit: Yes Status: Acute Causative organism unclear. Likely secondary to kidney stone per Urology. CT scan showed right nephrolithiasis including a right 1.8cm right renal pelvic stone with mild prominence of the right renal pelvis and proximal right ureter without obstructing calcified right ureteral stone and suspected right urothelial thickening concerning for obstructive uropathy or inflammation/ infection. Urology consulted and following. Status post cystoscopy with right ureteral stent placement 12/05/[address] Sandra. Spoke with Dr. Sandra who states there was a lot of debris intra-op, but it is difficult to tell if it was coming from the bladder or the kidney due to kidney spasm intra-op. Urine culture obtained on admission was interpreted as grossly mixed bina. Blood culture drawn 12/04/17 x 1 set is NGTD. Repeat urine culture obtained 12/06/17 pending. De-escalate antibiotics if/when able. Continue cefepime, but decrease to 2 grams IV Q12H. Duration of treatment depends on the clinical picture. Monitor renal function and dose-adjust antibiotics. (2) Acute cystitis with hematuria Current Visit: No Status: Acute Causative organism: unclear. Complicated due to the presence of ureteral stent. Likely secondary to kidney stone per Urology. Continues to have grossly bloody urine via go catheter. Continues to take Xarelto. Urology consulted and following. Continue antibiotics as above. Go management per the urology team. (3) Renal stone Current Visit: Yes Status: Acute Location: Right renal pelvis, approximately 1.8cm. Status post ureteral stent placement 12/05/[address] Sandra. (4) Colitis Current Visit: Yes Status: Acute CT scan of the abdomen and pelvis showed marked dilation of the rectosigmoid colon which also shows wall thickening and adjacent stranding concerning for stercoral colitis. Likely secondary to fecal impaction. No antibiotics required. Bowel regimen per the primary team. Consider GI consult for chronic diarrhea. (5) Atrial fibrillation Current Visit: Yes Status: Chronic Rate controlled. Management per the primary team. Qualifiers: Atrial fibrillation type: paroxysmal Qualified Code(s): I48.0 - Paroxysmal atrial fibrillation (6) Chronic diastolic (congestive) heart failure Current Visit: No Status: Chronic (7) Decubitus ulcer Current Visit: Yes Status: Chronic Recommend wound care consult for dressing recommendations. Aggressive offloading. Qualifiers: Pressure ulcer location: buttock Pressure ulcer stage: stage 2 Laterality : unspecified laterality Qualified Code(s): L89.302 - Pressure ulcer of unspecified buttock, stage 2 (8) Diabetes Current Visit: Yes Status: Chronic Controlled. HgbA1C 4.8% 06/2017. Recommend aggressive glucose monitoring and control to promote wound healing and prevent re-infection. Management per the primary team. Qualifiers: Diabetes mellitus type: type 2 Diabetes mellitus terminal clerk insulin use: without terminal clerk use Diabetes mellitus complication status: with hyperglycemia Qualified Code(s): E11.65 - Type 2 diabetes mellitus with hyperglycemia (9) Morbid obesity Current Visit: Yes Status: Chronic (10) Pelvic mass Current Visit: Yes Status: Acute CT scan showed a 5.4 x 4.8cm cystic focus adjacent to or within the right ovary. Etiology unclear. DEPUTY CHIEF COUNSEL consult as outpatient. - Subjective Interval history: Patient seen and examined. No acute events noted overnight. Patient states that overall she feels okay today. Denies fevers, chills, or rigors. Denies chest pain, shortness of breath, or cough. Denies nausea, vomiting. Complains of abdominal cramping and large loose bowel movements. Go catheter remains patent with bloody urine. Reports lower back pain, worse on the right than the left. Denies oral thrush or new skin lesions. Infect Dis PN-Objective Data - Labs CBC & Chem 7: 12/07/17 05:05 12/07/17 05:05 Labs: Laboratory Results - last 24 hr 12/06/17 12/06/17 12/06/17 11:53 16:06 20:32 WBC RBC Hgb Hct MCV MCH MCHC RDW Plt Count MPV Immature Gran % Seg Neutrophils % Lymphocytes % Monocytes % Eosinophils % Basophils % Neutrophils # Lymphocytes # Monocytes # Eosinophils # Basophils # Sodium Potassium Chloride Carbon Dioxide BUN Creatinine Est GFR ( Amer) Est GFR (Non-Af Amer) BUN/Creatinine Ratio Glucose POC Glucose 126 H 131 H 113 H Calculated Osmolality Calcium 12/07/17 12/07/17 12/07/17 05:05 05:05 06:57 WBC 7.4 RBC 4.19 Hgb 12.7 Hct 37.1 MCV 88.5 MCH 30.3 MCHC 34.2 RDW 14.5 Plt Count 180 MPV 10.6 Immature Gran % 0.4 Seg Neutrophils % 62.7 Lymphocytes % 25.9 Monocytes % 8.7 Eosinophils % 1.9 Basophils % 0.4 Neutrophils # 4.6 Lymphocytes # 1.9 Monocytes # 0.6 Eosinophils # 0.1 Basophils # 0.0 Sodium 137 Potassium 3.4 L Chloride 108 H Carbon Dioxide 22 L BUN 17 Creatinine 0.75 Est GFR ( Amer) > 60 Est GFR (Non-Af Amer) > 60 BUN/Creatinine Ratio 23 Glucose 114 H POC Glucose 105 H Calculated Osmolality 286 Calcium 8.4 L 12/07/17 11:37 WBC RBC Hgb Hct MCV MCH MCHC RDW Plt Count MPV Immature Gran % Seg Neutrophils % Lymphocytes % Monocytes % Eosinophils % Basophils % Neutrophils # Lymphocytes # Monocytes # Eosinophils # Basophils # Sodium Potassium Chloride Carbon Dioxide BUN Creatinine Est GFR ( Amer) Est GFR (Non-Af Amer) BUN/Creatinine Ratio Glucose POC Glucose 128 H Calculated Osmolality Calcium Exam - Constitutional Vitals: Temp Pulse Resp BP Pulse Ox 98.3 F 88 16 102/67 100 12/07/17 10:00 12/07/17 10:00 12/07/17 10:00 12/07/17 10:00 12/07/17 10:00 General appearance: cooperative, no acute distress, obese - Head Head exam: Present: atraumatic, normal inspection, normocephalic - Eye Eye exam: Present: EOMI, normal appearance, PERRL Pupils: Present: normal accommodation - ENT ENT exam: Present: mucous membranes moist - Neck Neck exam: Present: normal inspection - Respiratory Respiratory exam: Present: CTAB. Absent: rales, respiratory distress, rhonchi, wheezes - Cardiovascular Cardiovascular exam: Present: RRR, +S1, +S2 - GI/Abdominal GI/Abdominal exam: Present: distended, normal bowel sounds, soft, tenderness ( generalized) Additional comments: Go catheter patent draining bloody urine. - Extremities Exam Extremities exam: Present: normal inspection. Absent: joint swelling, pedal edema, tenderness - Back Exam Back exam: Present: CVA tenderness (R). Absent: CVA tenderness (L) - Neurological Exam Neurological exam: Present: alert, oriented X3, no focal deficits - Psychiatric Psychiatric exam: Present: normal affect, normal mood - Skin Skin exam: Present: dry, intact, normal color, warm - VTE Documentation of Mechanical Device: Intermittent pneumatic compression device Consult Discharge Plan - Plan Referrals: Juan Ramon Sandra MD [Partnered Physician] - - Attending Attestation I examined this patient and my medical decision-making was reviewed with the Resident Physician. I agree with the documented findings, disposition and treatment plan as described except to the extent set forth below.
[2017-12-07] MEDS: *HR* Rivaroxaban 10 MG TABLET PO SCH (17:14)
[2017-12-07] MEDS: Silvasorb 44.4 ML TUBE TP SCH (17:15)
[2017-12-07] MEDS: Gabapentin 100 MG CAPSULE PO SCH (20:54)
[2017-12-08] MEDS: Cefepime HCl 2,000 MG in Water for inj. (sterile) 20 ML 20 ML IVP SCH ×2 (05:44→18:15)
[2017-12-08 06:10] LABS: Basophils # 0.1 K/mcL (0.0-0.2); Basophils % 0.7 %; Eosinophils # 0.5 K/mcL (0.0-0.6); Eosinophils % 7.4 %; Hematocrit 36.4 % (35.3-44.9); Hemoglobin 12.6 g/dL (11.5-15.4); Immature Granulocytes % 0.3 % (0-4); Lymphocytes # 2.4 K/mcL (0.6-4.6); Lymphocytes % 34.2 %; Mean Corpuscular HGB Conc 34.6 g/dL (31.6-35.5); Mean Corpuscular Hemoglobin 30.9 pg (28.0-33.3); Mean Corpuscular Volume 89.2 fL (83.0-100.0); Mean Platelet Volume 10.5 fL (9.4-12.4); Monocytes # 0.7 K/mcL (0.0-1.3); Monocytes % 9.5 %; Neutrophils # 3.4 K/mcL (1.6-8.9); Platelet Count 182 K/mcL (140-400); Red Blood Count 4.08 M/mcL (3.82-4.97); Red Cell Distribution Width 14.6 % (11.5-14.5); Segmented Neutrophils % 47.9 %
[2017-12-08 06:30] LABS: BUN/Creatinine Ratio 22 (6-26); Blood Urea Nitrogen 16 mg/dL (8-23); Calcium 8.2 mg/dL (8.6-10.3); Carbon Dioxide 22 mEq/L (23-29); Chloride 107 mEq/L (98-107); Glucose 107 mg/dL (70-105); Osmolality,Calculated 286 (280-300); Potassium 3.3 mEq/L (3.5-5.1); Sodium 137 mEq/L (136-145); eGFR For African Americans > 60 (> 60); eGFR For Non-African Americans > 60 (> 60)
[2017-12-08] MEDS ORDERED: Potassium Chloride 40 MEQ, Lidocaine 1% 2 ML in D5% in Water 500 ML IVPB ONE (07:34)
[2017-12-08] MEDS: Insulin LISPRO 300 UNITS/3 ML VIAL SQ SCH ×4 (08:24→21:28)
[2017-12-08] MEDS: Furosemide 40 MG TABLET PO SCH (08:33)
[2017-12-08] MEDS: Silvasorb 44.4 ML TUBE TP SCH (08:34)
--- NOTE | 2017-12-08 11:43 | Infectious Disease Progress No ---
Date of Encounter: 12/08/17 Time of Encounter: 11:41 - Assessment and Plan (1) Pyelonephritis Current Visit: Yes Status: Acute Causative organism unclear. Likely secondary to kidney stone per Urology. CT scan showed right nephrolithiasis including a right 1.8cm right renal pelvic stone with mild prominence of the right renal pelvis and proximal right ureter without obstructing calcified right ureteral stone and suspected right urothelial thickening concerning for obstructive uropathy or inflammation/ infection. Urology consulted and following. Status post cystoscopy with right ureteral stent placement 12/05/[address] Sandra. Spoke with Dr. Sandra who states there was a lot of debris intra-op, but it is difficult to tell if it was coming from the bladder or the kidney due to kidney spasm intra-op. Urine culture obtained on admission was interpreted as grossly mixed bina. Blood culture drawn 12/04/17 x 1 set is NGTD. Repeat urine culture obtained 12/06/17 pending. I spoke with labs, should have results later today. De-escalate antibiotics if/when able. Add Vancomycin IV for now until repeat urine culture is results. Pharmacy to dose. Goal trough ~15. Continue cefepime, but decrease to 2 grams IV Q12H. Duration of treatment depends on the clinical picture. Monitor renal function and dose-adjust antibiotics. (2) Acute cystitis with hematuria Current Visit: No Status: Acute Causative organism: unclear. Complicated due to the presence of ureteral stent. Likely secondary to kidney stone per Urology. Continues to have grossly bloody urine via go catheter. Continues to take Xarelto. Discussed with the primary team. Urology consulted and following. Continue antibiotics as above. Go management per the urology team. (3) Renal stone Current Visit: Yes Status: Acute Location: Right renal pelvis, approximately 1.8cm. Status post ureteral stent placement 12/05/[address] Sandra. (4) Colitis Current Visit: Yes Status: Resolved CT scan of the abdomen and pelvis showed marked dilation of the rectosigmoid colon which also shows wall thickening and adjacent stranding concerning for stercoral colitis. Likely secondary to fecal impaction. No antibiotics required. Bowel regimen per the primary team. Consider GI consult for chronic diarrhea. (5) Atrial fibrillation Current Visit: Yes Status: Chronic Rate controlled. Management per the primary team. Qualifiers: Atrial fibrillation type: paroxysmal Qualified Code(s): I48.0 - Paroxysmal atrial fibrillation (6) Chronic diastolic (congestive) heart failure Current Visit: No Status: Chronic (7) Decubitus ulcer Current Visit: Yes Status: Chronic Recommend wound care consult for dressing recommendations. Aggressive offloading. Qualifiers: Pressure ulcer location: buttock Pressure ulcer stage: stage 2 Laterality : unspecified laterality Qualified Code(s): L89.302 - Pressure ulcer of unspecified buttock, stage 2 (8) Diabetes Current Visit: Yes Status: Chronic Controlled. HgbA1C 4.8% 06/2017. Recommend aggressive glucose monitoring and control to promote wound healing and prevent re-infection. Management per the primary team. Qualifiers: Diabetes mellitus type: type 2 Diabetes mellitus superintendent container terminal insulin use: without superintendent container terminal use Diabetes mellitus complication status: with hyperglycemia Qualified Code(s): E11.65 - Type 2 diabetes mellitus with hyperglycemia (9) Morbid obesity Current Visit: Yes Status: Chronic (10) Pelvic mass Current Visit: Yes Status: Acute CT scan showed a 5.4 x 4.8cm cystic focus adjacent to or within the right ovary. Etiology unclear. GERIATRIC NURSING ASSISTANT consult as outpatient. - Subjective Interval history: Patient seen and examined. No acute events noted overnight. Patient states that overall she feels okay today. Denies fevers, chills, or rigors. Denies chest pain, shortness of breath, or cough. Denies nausea, vomiting. Complains of abdominal cramping and large loose bowel movements yesterday, none today so far. Go catheter remains patent with bloody urine. States back pain is better. Denies oral thrush or new skin lesions. States she was able to sit up on the side of the bed yesterday. Infect Dis PN-Objective Data - Labs CBC & Chem 7: 12/11/17 05:19 12/12/17 04:26 Labs: Laboratory Results - last 24 hr 12/07/17 12/07/17 12/08/17 16:06 20:13 05:55 WBC 7.0 RBC 4.08 Hgb 12.6 Hct 36.4 MCV 89.2 MCH 30.9 MCHC 34.6 RDW 14.6 H Plt Count 182 MPV 10.5 Immature Gran % 0.3 Seg Neutrophils % 47.9 Lymphocytes % 34.2 Monocytes % 9.5 Eosinophils % 7.4 Basophils % 0.7 Neutrophils # 3.4 Lymphocytes # 2.4 Monocytes # 0.7 Eosinophils # 0.5 Basophils # 0.1 Sodium Potassium Chloride Carbon Dioxide BUN Creatinine Est GFR ( Amer) Est GFR (Non-Af Amer) BUN/Creatinine Ratio Glucose POC Glucose 92 119 H Calculated Osmolality Calcium 12/08/17 05:55 WBC RBC Hgb Hct MCV MCH MCHC RDW Plt Count MPV Immature Gran % Seg Neutrophils % Lymphocytes % Monocytes % Eosinophils % Basophils % Neutrophils # Lymphocytes # Monocytes # Eosinophils # Basophils # Sodium 137 Potassium 3.3 L Chloride 107 Carbon Dioxide 22 L BUN 16 Creatinine 0.74 Est GFR ( Amer) > 60 Est GFR (Non-Af Amer) > 60 BUN/Creatinine Ratio 22 Glucose 107 H POC Glucose Calculated Osmolality 286 Calcium 8.2 L - Impressions Impressions KUB X-Ray 12/07/17 13:18 IMPRESSION: Interval right ureteral stent placement. No appreciable change in right nephrolithiasis allowing for differences in technique. D/ / Adrian Walters / Adrian Walters Interpreting Provider: Adrian Walters Exam - Constitutional Vitals: Temp Pulse Resp BP Pulse Ox 98.4 F 56 18 93/58 94 12/08/17 10:45 12/08/17 10:45 12/08/17 10:45 12/08/17 10:45 12/08/17 10:45 General appearance: cooperative, no acute distress, obese - Head Head exam: Present: atraumatic, normal inspection, normocephalic - Eye Eye exam: Present: EOMI, normal appearance, PERRL Pupils: Present: normal accommodation - ENT ENT exam: Present: mucous membranes moist - Neck Neck exam: Present: normal inspection - Respiratory Respiratory exam: Present: CTAB. Absent: rales, respiratory distress, rhonchi, wheezes - Cardiovascular Cardiovascular exam: Present: RRR, +S1, +S2 - GI/Abdominal GI/Abdominal exam: Present: distended, normal bowel sounds, soft, tenderness ( generalized) Additional comments: Go catheter noted to be draining grossly bloody urine. - Extremities Exam Extremities exam: Present: normal inspection. Absent: joint swelling, pedal edema, tenderness - Back Exam Back exam: Present: CVA tenderness (R). Absent: CVA tenderness (L) - Neurological Exam Neurological exam: Present: alert, oriented X3, no focal deficits - Psychiatric Psychiatric exam: Present: normal affect, normal mood - Skin Skin exam: Present: dry, intact, normal color, warm - VTE Documentation of Mechanical Device: Intermittent pneumatic compression device Consult Discharge Plan - Plan Additional Instructions: Please follow up with primary care physician as well as your urologist. Your urologist will determine the next action for your kidney stone. Also please remember that an ovarian cyst was seen on your right side which may be causing your pain, it is important to follow-up with your primary care physician for this. Please take all antibiotics as prescribed. Referrals: Juan Bee MD [Partnered Physician] - 12/26/17 10:15 am Prescriptions: Carvedilol [Coreg] 3.125 mg PO BIDWM #10 tablet Ciprofloxacin [Cipro] 500 mg PO BID #16 tablet Linezolid [Zyvox] 600 mg PO BID #24 tablet Silvasorb 1 appl TP DAILY #1 tube - Attending Attestation I examined this patient and my medical decision-making was reviewed with the Resident Physician. I agree with the documented findings, disposition and treatment plan as described except to the extent set forth below.
--- NOTE | 2017-12-08 13:36 | Internal Med Progress Note ---
<Harpreet Wagoner - Last Filed: 12/08/17 13:34> Date of Encounter: 12/08/17 Time of Encounter: 09:20 - Assessment and plan (1) Pyelonephritis Current Visit: Yes Status: Acute Assessment and plan: - Urinalysis showing signs of infection. Urine culture is grossly mixed and unable to determine causative organism. Repeat culture pending. - CT scan performed emergency department showing right kidney stone, right ureteral inflammation, thickening suggestive of infection - Previous cultures showed Escherichia coli, Klebsiella and multidrug-resistant Escherichia coli in the past - Complicated UTI due to presence of stones. CT scan shows nonobstructive nephrolithiasis. In right kidney measuring 1.8 cm - Urology has been consulted by the ER team. Status post right ureteral stent placement on 12/05/17. Urology recommends long-term antibiotics for retained stone as well as outpatient urology follow-up for eventual stone removal - Renal function stable. - ID consulted for antibiotic recommendations. Input appreciated. - Repeat urine culture preliminary result of enterococcus, will await sensitivities Plan -Continue cefepime, day #5, follow urine culture - Will deescalate as able pending culture and sensitivities. - Urology and ID consult as above. - Supportive care - Except that swing bed, will discharge when antibiotic regimen is determined (2) UTI (urinary tract infection) Current Visit: Yes Status: Acute Assessment and plan: Complicated, recurrent, with hx of MDROs, mgt as in pyelonephritis No evidence of sepsis at this time As above for pyelonephritis Qualifiers: Urinary tract infection type: acute pyelonephritis Qualified Code(s): N10 - Acute pyelonephritis (3) Morbid obesity Current Visit: Yes Status: Chronic Assessment and plan: lifestyle modification as outpatient (4) Atrial fibrillation Current Visit: Yes Status: Chronic Assessment and plan: Atrial fibrillation with controlled heart rate on xarelto, Continue home medications. Heart rate in 70s-80s Started on Coreg here. Tolerating well with board[place] HoTN Qualifiers: Atrial fibrillation type: paroxysmal Qualified Code(s): I48.0 - Paroxysmal atrial fibrillation (5) Diabetes Current Visit: Yes Status: Chronic Assessment and plan: FS ACHS ADA diet low dose correctional insulin Blood sugar of 107 this morning A1c of 4.8% in June 2017 Qualifiers: Diabetes mellitus type: type 2 Diabetes mellitus extermination inspector insulin use: without extermination inspector use Diabetes mellitus complication status: with hyperglycemia Qualified Code(s): E11.65 - Type 2 diabetes mellitus with hyperglycemia (6) Decubitus ulcer Current Visit: Yes Status: Chronic Assessment and plan: chronic, consult wound care for eval Stage I, present on admission Frequent bed turns per protocol Qualifiers: Pressure ulcer location: buttock Pressure ulcer stage: stage 2 Laterality : unspecified laterality Qualified Code(s): L89.302 - Pressure ulcer of unspecified buttock, stage 2 (7) CAD (coronary artery disease) Current Visit: Yes Status: Chronic Assessment and plan: continue home meds. Reportedly was not taking BB, ASA, statin, TAMARA. History of CAD with 1 stent placed. Continue BB. Wound benefit from statin and ASA after discharge. Further questioning shows that BB was stopped at alf for boarderline hypotension, stopped ASA for unknown reason. Qualifiers: Coronary Disease-Associated Artery/Lesion type: [place] artery [place] vs. transplanted heart: [place] heart Associated angina: angina presence unspecified Qualified Code(s): I25.10 - Atherosclerotic heart disease of [place] coronary artery without angina pectoris (8) Chronic diastolic (congestive) heart failure Current Visit: No Status: Chronic Assessment and plan: History of heart failure with preserved ejection fraction Appears euvolemic on exam, lower extremity swelling at baseline Monitor fluid status carefully Continue home meds (9) Colitis Current Visit: Yes Status: Acute Assessment and plan: - Evidence of Stercoral colitis with large stool burden on CT scan in emergency department - Patient has been complaining of intermittent diarrhea for the past 3 days - She is incontinent of bowel at baseline - Per nursing report, she has had frequent bowel movements which had been medium to large and thicker - No reported diarrhea today. - KUB on 12/07/17 showing non obstructive gas pattern. Plan - For now as this is less likely to be impaction with diarrhea flowing around given consistency or nursing - Will obtain KUB to assess for improvement of obstruction. Pending. - Continue cefepime as above, will consider Flagyl if no improvement as well as further evaluation for impaction - Consider GI consult if no improvement. (10) DVT prophylaxis Current Visit: Yes Status: Acute Assessment and plan: on xarelto, for A. fib (11) Hypokalemia Current Visit: Yes Status: Acute Assessment and plan: - Potassium 3.3 this morning, will replenish - Avoiding oral potassium replenishment as patient reports nausea - Replace as needed with IV K - Daily labs - Time Spent With Patient Total time spent is greater than 50% in coordination of care (as documented) at patient's floor/unit and/or counseling patient: 25 - 35 minutes - Subjective Interval history: Patient seen and examined at bedside this morning. He states that her pain in her abdomen is much improved from yesterday. She is still experiencing some right lower quadrant pain but states left lower quadrant is much improved. She is no longer experiencing diarrhea at this time. No symptoms of nausea, vomiting, fevers, chills. - Constitutional Vitals: Temp Pulse Resp BP Pulse Ox 98.4 F 56 18 93/58 94 12/08/17 10:45 12/08/17 10:45 12/08/17 10:45 12/08/17 10:45 12/08/17 10:45 General appearance: Present: A&O X 3, morbidly obese, no acute distress Exam: Gen.: Vitals noted. No acute distress. AAOx3, resting comfortably in bed, morbidly obese HEENT: PERRL/EOMI, oropharynx clear, Normocephalic, atraumatic Cardiac: Irregular rhythm, no murmur, +S1/S2 Pulmonary: CTA bilaterally, no wheezes, rales or rhonchi, equal chest expansion Abdomen: soft, mildly tender in right lower quadrant and much improved grossly, BS noted, no guarding, minimal distention MSK: Bedbound Extremities: 1+ nonpitting BLE edema, nontender calf, no cyanosis or clubbing Neuro: A&Ox3, moves all extremities, bed bound at baseline Psych: Appropriate mood and behavior Internal Medicine: Result - Labs CBC & Chem 7: 12/08/17 05:55 12/08/17 05:55 Labs: Short CBC 12/08/17 Range/Units 05:55 WBC 7.0 (4.3-11.1) K/mcL Hgb 12.6 (11.5-15.4) g/dL Hct 36.4 (35.3-44.9) % Plt Count 182 (140-400) K/mcL Neutrophils # 3.4 (1.6-8.9) K/mcL BMP 12/08/17 05:55 Sodium 137 Potassium 3.3 L Chloride 107 Carbon Dioxide 22 L BUN 16 Creatinine 0.74 Glucose 107 H Calcium 8.2 L - Impressions Impressions KUB X-Ray 12/07/17 13:18 IMPRESSION: Interval right ureteral stent placement. No appreciable change in right nephrolithiasis allowing for differences in technique. D/ / Adrian Walters / Adrian Walters Interpreting Provider: Adrian Walters - VTE Documentation of Mechanical Device: Intermittent pneumatic compression device Consult Discharge Plan - Plan Referrals: Juan Ramon Sandra MD [Partnered Physician] - <Narcisa Crowell - Last Filed: 12/08/17 17:35> Date of Encounter: 12/08/17 - Assessment and plan (1) DVT prophylaxis Current Visit: Yes Status: Acute (2) CAD (coronary artery disease) Current Visit: Yes Status: Chronic Qualifiers: Coronary Disease-Associated Artery/Lesion type: [place] artery [place] vs. transplanted heart: [place] heart Associated angina: angina presence unspecified Qualified Code(s): I25.10 - Atherosclerotic heart disease of [place] coronary artery without angina pectoris (3) UTI (urinary tract infection) Current Visit: Yes Status: Acute Qualifiers: Urinary tract infection type: acute pyelonephritis Qualified Code(s): N10 - Acute pyelonephritis (4) Morbid obesity Current Visit: Yes Status: Chronic (5) Atrial fibrillation Current Visit: Yes Status: Chronic Qualifiers: Atrial fibrillation type: paroxysmal Qualified Code(s): I48.0 - Paroxysmal atrial fibrillation (6) Diabetes Current Visit: Yes Status: Chronic Qualifiers: Diabetes mellitus type: type 2 Diabetes mellitus extermination inspector insulin use: without assisted use Diabetes mellitus complication status: with hyperglycemia Qualified Code(s): E11.65 - Type 2 diabetes mellitus with hyperglycemia (7) Hypokalemia Current Visit: Yes Status: Acute (8) Decubitus ulcer Current Visit: Yes Status: Chronic Qualifiers: Pressure ulcer location: buttock Pressure ulcer stage: stage 2 Laterality : unspecified laterality Qualified Code(s): L89.302 - Pressure ulcer of unspecified buttock, stage 2 (9) Chronic diastolic (congestive) heart failure Current Visit: No Status: Chronic (10) Pyelonephritis Current Visit: Yes Status: Acute (11) Colitis Current Visit: Yes Status: Acute - Time Spent With Patient Total time spent is greater than 50% in coordination of care (as documented) at patient's floor/unit and/or counseling patient: - Constitutional Vitals: Temp Pulse Resp BP Pulse Ox 98.2 F 72 18 88/56 95 12/08/17 14:49 12/08/17 14:49 12/08/17 14:49 12/08/17 14:49 12/08/17 14:49 Internal Medicine: Result - Labs CBC & Chem 7: 12/08/17 05:55 12/08/17 05:55 Labs: Short CBC 12/08/17 Range/Units 05:55 WBC 7.0 (4.3-11.1) K/mcL Hgb 12.6 (11.5-15.4) g/dL Hct 36.4 (35.3-44.9) % Plt Count 182 (140-400) K/mcL Neutrophils # 3.4 (1.6-8.9) K/mcL BMP 12/08/17 05:55 Sodium 137 Potassium 3.3 L Chloride 107 Carbon Dioxide 22 L BUN 16 Creatinine 0.74 Glucose 107 H Calcium 8.2 L - Impressions Impressions KUB X-Ray 12/07/17 13:18 IMPRESSION: Interval right ureteral stent placement. No appreciable change in right nephrolithiasis allowing for differences in technique. D/ / Adrian Walters / Adrian Walters Interpreting Provider: Adrian Walters - Attending Attestation I performed a history and physical examination of the patient and discussed his/ her management with the resident. I reviewed the residents note and agree with the documented findings and plan of care. Note that patient approved for [facility] for Tuesday.
[2017-12-08] MEDS: *HR* Rivaroxaban 10 MG TABLET PO SCH (18:13)
[2017-12-08] MEDS: Gabapentin 100 MG CAPSULE PO SCH (21:38)
[2017-12-09 04:46] LABS: Basophils % 0.5 %; Eosinophils # 0.6 K/mcL (0.0-0.6); Eosinophils % 7.8 %; Hematocrit 38.5 % (35.3-44.9); Hemoglobin 13.2 g/dL (11.5-15.4); Immature Granulocytes % 0.3 % (0-4); Lymphocytes # 2.6 K/mcL (0.6-4.6); Lymphocytes % 34.7 %; Mean Corpuscular HGB Conc 34.3 g/dL (31.6-35.5); Mean Corpuscular Hemoglobin 30.6 pg (28.0-33.3); Mean Corpuscular Volume 89.1 fL (83.0-100.0); Mean Platelet Volume 10.6 fL (9.4-12.4); Monocytes # 0.7 K/mcL (0.0-1.3); Monocytes % 9.2 %; Neutrophils # 3.6 K/mcL (1.6-8.9); Platelet Count 191 K/mcL (140-400); Red Blood Count 4.32 M/mcL (3.82-4.97); Red Cell Distribution Width 14.6 % (11.5-14.5); Segmented Neutrophils % 47.5 %
[2017-12-09 05:05] LABS: BUN/Creatinine Ratio 20 (6-26); Blood Urea Nitrogen 15 mg/dL (8-23); Calcium 8.2 mg/dL (8.6-10.3); Carbon Dioxide 24 mEq/L (23-29); Chloride 106 mEq/L (98-107); Glucose 118 mg/dL (70-105); Osmolality,Calculated 288 (280-300); Potassium 3.2 mEq/L (3.5-5.1); Sodium 138 mEq/L (136-145); eGFR For African Americans > 60 (> 60); eGFR For Non-African Americans > 60 (> 60)
[2017-12-09] MEDS: Cefepime HCl 2,000 MG in Water for inj. (sterile) 20 ML 20 ML IVP SCH ×2 (06:31→17:46)
[2017-12-09] MEDS: Furosemide 40 MG TABLET PO SCH (08:19)
[2017-12-09] MEDS: Insulin LISPRO 300 UNITS/3 ML VIAL SQ SCH ×4 (08:20→20:17)
[2017-12-09] MEDS: Silvasorb 44.4 ML TUBE TP SCH (08:21)
[2017-12-09] MEDS ORDERED: Potassium Chloride 40 MEQ, Lidocaine 1% 2 ML in D5% in Water 500 ML IVPB ONE (08:27)
[2017-12-09] MEDS: *HR* HYDROcodone/Acet 5/325 mg TABLET PO PRN (10:03)
--- NOTE | 2017-12-09 11:57 | Infectious Disease Progress No ---
Date of Encounter: 12/09/17 Time of Encounter: 11:55 - Assessment and Plan (1) Pyelonephritis Current Visit: Yes Status: Acute Causative organism unclear. Likely secondary to kidney stone per Urology. CT scan showed right nephrolithiasis including a right 1.8cm right renal pelvic stone with mild prominence of the right renal pelvis and proximal right ureter without obstructing calcified right ureteral stone and suspected right urothelial thickening concerning for obstructive uropathy or inflammation/ infection. Urology consulted and following. Status post cystoscopy with right ureteral stent placement 12/05/[address] Sandra. Spoke with Dr. Sandra who states there was a lot of debris intra-op, but it is difficult to tell if it was coming from the bladder or the kidney due to kidney spasm intra-op. Urine culture obtained on admission was interpreted as grossly mixed bina. Blood culture drawn 12/04/17 x 1 set is negative. Repeat urine culture obtained 12/06/17 Enterococcus species. Continue Vancomycin IV for now until repeat urine culture is results. Pharmacy to dose. Goal trough ~15. Continue cefepime, but decrease to 2 grams IV Q12H. Duration of treatment depends on the clinical picture. Recommend a total of 14 days. Can switch to PO Zyvox through 12/21/17 and PO Cipro through 12/17/17. Patient has an allergy to Levaquin listed, but states she has taken Cipro in the past without a problem. Monitor renal function and dose-adjust antibiotics. (2) Acute cystitis with hematuria Current Visit: No Status: Acute Causative organism: unclear. Complicated due to the presence of ureteral stent. Likely secondary to kidney stone per Urology with worsening caused by Xarelto. Appears improved since Xarelto on hold. Urology consulted and following. Continue antibiotics as above. Sanchez management per the urology team. (3) Renal stone Current Visit: Yes Status: Acute Location: Right renal pelvis, approximately 1.8cm. Status post ureteral stent placement 12/05/[address] Sandra. (4) Colitis Current Visit: Yes Status: Acute CT scan of the abdomen and pelvis showed marked dilation of the rectosigmoid colon which also shows wall thickening and adjacent stranding concerning for stercoral colitis. Likely secondary to fecal impaction. No antibiotics required. Bowel regimen per the primary team. Consider GI consult for chronic diarrhea. (5) Atrial fibrillation Current Visit: Yes Status: Chronic Rate controlled. Management per the primary team. Qualifiers: Atrial fibrillation type: paroxysmal Qualified Code(s): I48.0 - Paroxysmal atrial fibrillation (6) Chronic diastolic (congestive) heart failure Current Visit: No Status: Chronic (7) Decubitus ulcer Current Visit: Yes Status: Chronic Recommend wound care consult for dressing recommendations. Aggressive offloading. Qualifiers: Pressure ulcer location: buttock Pressure ulcer stage: stage 2 Laterality : unspecified laterality Qualified Code(s): L89.302 - Pressure ulcer of unspecified buttock, stage 2 (8) Diabetes Current Visit: Yes Status: Chronic Controlled. HgbA1C 4.8% 06/2017. Recommend aggressive glucose monitoring and control to promote wound healing and prevent re-infection. Management per the primary team. Qualifiers: Diabetes mellitus type: type 2 Diabetes mellitus [facility] insulin use: without transportation dispatcher use Diabetes mellitus complication status: with hyperglycemia Qualified Code(s): E11.65 - Type 2 diabetes mellitus with hyperglycemia (9) Morbid obesity Current Visit: Yes Status: Chronic (10) Pelvic mass Current Visit: Yes Status: Acute CT scan showed a 5.4 x 4.8cm cystic focus adjacent to or within the right ovary. Etiology unclear. TUBE WRAPPER consult as outpatient. - Subjective Interval history: Patient seen and examined. No acute events noted overnight. Patient states that overall she feels okay today. Denies fevers, chills, or rigors. Denies chest pain, shortness of breath, or cough. Denies nausea, vomiting. Complains of abdominal cramping, but no stools yesterday or today. Sanchez catheter remains patent with blood-tinged urine. States back pain is better. Denies oral thrush or new skin lesions. Infect Dis PN-Objective Data - Labs CBC & Chem 7: 12/09/17 04:17 12/09/17 04:17 Labs: Laboratory Results - last 24 hr 12/08/17 12/08/17 12/08/17 06:42 10:47 14:45 WBC RBC Hgb Hct MCV MCH MCHC RDW Plt Count MPV Immature Gran % Seg Neutrophils % Lymphocytes % Monocytes % Eosinophils % Basophils % Neutrophils # Lymphocytes # Monocytes # Eosinophils # Basophils # Sodium Potassium Chloride Carbon Dioxide BUN Creatinine Est GFR ( Amer) Est GFR (Non-Af Amer) BUN/Creatinine Ratio Glucose POC Glucose 94 169 H 133 H Calculated Osmolality Calcium 12/08/17 12/09/17 12/09/17 20:00 04:17 04:17 WBC 7.6 RBC 4.32 Hgb 13.2 Hct 38.5 MCV 89.1 MCH 30.6 MCHC 34.3 RDW 14.6 H Plt Count 191 MPV 10.6 Immature Gran % 0.3 Seg Neutrophils % 47.5 Lymphocytes % 34.7 Monocytes % 9.2 Eosinophils % 7.8 Basophils % 0.5 Neutrophils # 3.6 Lymphocytes # 2.6 Monocytes # 0.7 Eosinophils # 0.6 Basophils # 0.0 Sodium 138 Potassium 3.2 L Chloride 106 Carbon Dioxide 24 BUN 15 Creatinine 0.74 Est GFR ( Amer) > 60 Est GFR (Non-Af Amer) > 60 BUN/Creatinine Ratio 20 Glucose 118 H POC Glucose 145 H Calculated Osmolality 288 Calcium 8.2 L 12/09/17 12/09/17 07:55 11:24 WBC RBC Hgb Hct MCV MCH MCHC RDW Plt Count MPV Immature Gran % Seg Neutrophils % Lymphocytes % Monocytes % Eosinophils % Basophils % Neutrophils # Lymphocytes # Monocytes # Eosinophils # Basophils # Sodium Potassium Chloride Carbon Dioxide BUN Creatinine Est GFR ( Amer) Est GFR (Non-Af Amer) BUN/Creatinine Ratio Glucose POC Glucose 110 H 181 H Calculated Osmolality Calcium Cultures: Cultures 12/06/17 15:05 Urine Culture - Final Urine,Catheterized Enterococcus species Exam - Constitutional Vitals: Temp Pulse Resp BP Pulse Ox 98.4 F 72 18 95/59 96 12/09/17 11:21 12/09/17 11:21 12/09/17 11:21 12/09/17 11:21 12/09/17 11:21 General appearance: cooperative, no acute distress, obese - Head Head exam: Present: atraumatic, normal inspection, normocephalic - Eye Eye exam: Present: EOMI, normal appearance, PERRL Pupils: Present: normal accommodation - ENT ENT exam: Present: mucous membranes moist - Neck Neck exam: Present: normal inspection - Respiratory Respiratory exam: Present: CTAB. Absent: rales, respiratory distress, rhonchi, wheezes - Cardiovascular Cardiovascular exam: Present: irregular rhythm. Absent: tachycardia - GI/Abdominal GI/Abdominal exam: Present: distended (obese), normal bowel sounds, soft. Absent: tenderness Additional comments: Sanchez catheter noted to be draining blood-tinged urine. - Extremities Exam Extremities exam: Present: normal inspection. Absent: joint swelling, pedal edema, tenderness - Back Exam Back exam: Present: normal inspection, paraspinal tenderness (right lumbar ). Absent: CVA tenderness (L), CVA tenderness (R) - Neurological Exam Neurological exam: Present: alert, oriented X3, no focal deficits - Psychiatric Psychiatric exam: Present: normal affect, normal mood - Skin Skin exam: Present: dry, intact, normal color, warm - VTE Documentation of Mechanical Device: Intermittent pneumatic compression device Consult Discharge Plan - Plan Referrals: Juan Ramon Sandra MD [Partnered Physician] -
--- NOTE | 2017-12-09 13:14 | Discharge Summary ---
- NOTES TO OUTPATIENT PROVIDER Notes to Outpatient Provider: Patient scheduled to complete antibiotic course on 12/22/17. She also had an incidental finding of right ovarian cyst and right renal calculus. Urology appointment as outpatient will need follow-up on the ovarian cyst. We also noticed that she has not on medications for her coronary artery disease including a beta murray, aspirin, TAMARA inhibitor Orders not resulted at time of discharge: Pending orders 12/05/17 XR KUB [XR] Routine XR fluoroscopy <1 hr [XR] Routine 12/10/17 01:00 Vancomycin,Trough Timed Date of Encounter: 12/09/17 Time of Encounter: 13:12 - Discharge Diagnosis (1) DVT prophylaxis Priority: Secondary Status: Acute Assessment and Plan: on xarelto, for A. fib (2) CAD (coronary artery disease) Priority: Secondary Status: Chronic Assessment and Plan: continue home meds. Reportedly was not taking BB, ASA, statin, TAMARA. History of CAD with 1 stent placed. Continue BB. Wound benefit from statin and ASA after discharge. Further questioning shows that BB was stopped at [facility] for boarderline hypotension, stopped ASA for unknown reason. Qualifiers: Coronary Disease-Associated Artery/Lesion type: [place] artery [place] vs. transplanted heart: [place] heart Associated angina: angina presence unspecified Qualified Code(s): I25.10 - Atherosclerotic heart disease of [place] coronary artery without angina pectoris (3) UTI (urinary tract infection) Priority: Secondary Status: Acute Assessment and Plan: Complicated, recurrent, with hx of MDROs, mgt as in pyelonephritis No evidence of sepsis at this time As above for pyelonephritis Qualifiers: Urinary tract infection type: acute pyelonephritis Qualified Code(s): N10 - Acute pyelonephritis (4) Morbid obesity Priority: Secondary Status: Chronic Assessment and Plan: lifestyle modification as outpatient (5) Atrial fibrillation Priority: Secondary Status: Chronic Assessment and Plan: Atrial fibrillation with controlled heart rate on xarelto, Continue home medications. Heart rate in 70s-80s Started on Coreg here. Tolerating well with boarderline HoTN Qualifiers: Atrial fibrillation type: paroxysmal Qualified Code(s): I48.0 - Paroxysmal atrial fibrillation (6) Diabetes Priority: Secondary Status: Chronic Assessment and Plan: FS ACHS ADA diet low dose correctional insulin Blood sugar of 107 this morning A1c of 4.8% in June 2017 Qualifiers: Diabetes mellitus type: type 2 Diabetes mellitus terminal superintendent insulin use: without terminal superintendent use Diabetes mellitus complication status: with hyperglycemia Qualified Code(s): E11.65 - Type 2 diabetes mellitus with hyperglycemia (7) Hypokalemia Priority: Secondary Status: Acute Assessment and Plan: - Potassium 3.3 this morning, will replenish - Avoiding oral potassium replenishment as patient reports nausea - Replace as needed with IV K - Daily labs (8) Decubitus ulcer Priority: Secondary Status: Chronic Assessment and Plan: chronic, consult wound care for eval Stage I, present on admission Frequent bed turns per protocol Qualifiers: Pressure ulcer location: buttock Pressure ulcer stage: stage 2 Laterality : unspecified laterality Qualified Code(s): L89.302 - Pressure ulcer of unspecified buttock, stage 2 (9) Chronic diastolic (congestive) heart failure Priority: Secondary Status: Chronic Assessment and Plan: History of heart failure with preserved ejection fraction Appears euvolemic on exam, lower extremity swelling at baseline Monitor fluid status carefully Continue home meds (10) Pyelonephritis Priority: Primary Status: Acute Assessment and Plan: - Urinalysis showing signs of infection. Urine culture is grossly mixed and unable to determine causative organism. Repeat culture pending. - CT scan performed emergency department showing right kidney stone, right ureteral inflammation, thickening suggestive of infection - Previous cultures showed Escherichia coli, Klebsiella and multidrug-resistant Escherichia coli in the past - Complicated UTI due to presence of stones. CT scan shows nonobstructive nephrolithiasis. In right kidney measuring 1.8 cm - Urology has been consulted by the ER team. Status post right ureteral stent placement on 12/05/17. Urology recommends long-term antibiotics for retained stone as well as outpatient urology follow-up for eventual stone removal - Renal function stable. - ID consulted for antibiotic recommendations. Input appreciated. - Repeat urine culture preliminary result of enterococcus, will await sensitivities Plan -Continue cefepime, day #5, follow urine culture - Will deescalate as able pending culture and sensitivities. - Urology and ID consult as above. - Supportive care - Except that swing bed, will discharge when antibiotic regimen is determined 12/09/17: Urine cultures positive for enterococcus which is sensitive to Zyvox, vancomycin, ampicillin. Patient does have multiple antibiotic allergies and we discharged home on Zyvox and Cipro for a total of 14 days of treatment. (11) Colitis Priority: Secondary Status: Resolved Assessment and Plan: - Evidence of Stercoral colitis with large stool burden on CT scan in emergency department - Patient has been complaining of intermittent diarrhea for the past 3 days - She is incontinent of bowel at baseline - Per nursing report, she has had frequent bowel movements which had been medium to large and thicker - No reported diarrhea today. - KUB on 12/07/17 showing non obstructive gas pattern. Plan - For now as this is less likely to be impaction with diarrhea flowing around given consistency or nursing - Will obtain KUB to assess for improvement of obstruction. Pending. - Continue cefepime as above, will consider Flagyl if no improvement as well as further evaluation for impaction - Consider GI consult if no improvement. Hospital course: Ms. Golden is a 67 year old female with past medical history of atrial fibrillation xarelto, CHF, COPD, diabetes, kidney stones, GERD, arthritis presented to the emergency department with a chief complaint of possible urinary tract infection. She states that she has noticed foul-smelling urine, hematuria for the past couple days. She has had a history of urinary tract infections including multidrug-resistant organisms. She was also noticed to have a large decubitus ulcer in the emergency room and a Sanchez catheter was placed to the wound. She is incontinent of bowel and bladder are at baseline. In the emergency room, vital signs were unremarkable. She did have a CT scan of her abdomen which showed a right kidney stone measuring 1.8 cm without obstruction however right urothelial thickening suspected. Urology was consulted in the emergency department. Laboratory results were significant for a hypokalemia at 3.3, otherwise grossly unremarkable. She was admitted to medicine service for further evaluation and management of possible pyelonephritis versus complicated urinary tract infection given stone and started on cefepime. During course fossil stay, patient did gradually improve. She had a right ureteral stent placed by urology. Urine culture was obtained and was grossly contaminated, repeat urine culture growing enterococcus that is sensitive to Zyvox, vancomycin, ampicillin, nitrofurantoin however patient is allergic to both penicillin and nitrofurantoin. She received a total of 7 days of cefepime And 2 days of vancomycin. Infectious disease was consult that during admission and agree with antibiotic regimen. CT scan also revealed a possible colitis with fecal impaction. Patient reports a history of chronic diarrhea lasting approximately the past year. Her symptoms have resolved at this time and follow -up KUB shows a nonobstructive gas pattern. She did have episodes of hematuria and her Xarelto was held for 2 days with relief of symptoms. She was evaluated by physical and occupational therapy and will discharge to [place] with a total of 14 days of antibiotic therapy on Zyvox and Cipro. On day of discharge , patient is medically stable for discharge to rehabilitation facility and all questions were answered. She was instructed to follow up with urology for further management of her right kidney stone as well as her primary care physician for her chronic medical conditions and incidental finding of right ovarian cyst seen on CT. Discharge discussed with: patient - Time Spent with Patient Total time spent providing and/or coordinating discharge services: - Discharge Medications Prescriptions: Carvedilol [Coreg] 3.125 mg PO BIDWM #10 tablet Ciprofloxacin [Cipro] 500 mg PO BID #16 tablet Linezolid [Zyvox] 600 mg PO BID #24 tablet Silvasorb 1 appl TP DAILY #1 tube Home Medications: Promethazine [Phenergan] 25 mg PO Q6HR PRN 06/20/17 [History] HYDROcodone/Acet 5/325 mg [[place] 5-325 mg] 1 tab PO Q6H PRN #28 tablet 06/24/17 [Rx] Fluticasone Propionate [Allergy Relief] 2 spr NS DAILY 12/05/17 [History] Furosemide [Lasix] 40 mg PO DAILY 12/05/17 [History] Patient Taking Own Medication 1 each PO AD 12/06/17 [History] Carvedilol [Coreg] 3.125 mg PO BIDWM #10 tablet 12/09/17 [Rx] Ciprofloxacin [Cipro] 500 mg PO BID #16 tablet 12/09/17 [Rx] Linezolid [Zyvox] 600 mg PO BID #24 tablet 12/09/17 [Rx] Rivaroxaban [Xarelto] 20 mg PO 1700 tablet 12/09/17 [Rx] Silvasorb 1 appl TP DAILY #1 tube 12/09/17 [Rx] Allergies/Adverse Reactions: 3 Allergy/AdvReac Type Severity Reaction Status Date / Time levofloxacin [From Levaquin] Allergy Hives Verified 09/28/16 08:50 Penicillins Allergy Blister Verified 09/28/16 08:50 prednisone Allergy See Verified 09/28/16 08:50 Comments Sulfa (Sulfonamide Allergy Hives Verified 09/28/16 08:50 Antibiotics) Banana AdvReac Severe Blister Verified 09/28/16 08:50 egg AdvReac Severe Throat Verified 09/28/16 08:50 swelling nitrofurantoin AdvReac Severe Bruising Verified 09/28/16 08:50 [From Macrobid] on arms Date of admission: 12/04/17 20:35 Primary care physician: PCP NONE Consults: 12/04/17 21:08 Consult to Wound Care [CONS] Routine Reason for Consult: Sacaral deubitus ulcers Call Completed: No 12/04/17 21:48 Consult to Nutrition [CONS] Routine Comment: Consulting Provider: NUTRITION Reason for Dietary Consult: MST Score 12/04/17 23:35 Consult to [place] [CONS] Routine Reason for SW Consult: possible placement 12/06/17 09:19 Consult to Occupational Therapy [CONS] Routine Comment: Evaluate, develop and implement POC Reason for Consult: increased weakness, deconditioning, safe d/c plan hh vs ecf Does patient have active BEDREST order?: No Is patient medically & hemodynamically stable?: Yes Patient assessed for mobility or mobilized this visit?: No Consult to Physical Therapy [CONS] Routine Comment: Evaluate, develop and implement POC Reason for Consult: increased weakness, deconditioning, safe d/c plan hh vs ecf Does patient have active BEDREST order?: No Is patient medically & hemodynamically stable?: Yes Patient assessed for mobility or mobilized this visit?: No 12/06/17 11:53 Consult to Infectious Diseases [CONS] Routine Consulting Provider: Infectious Disease [place] Reason for Consult: Recurrent UTI, stone, colitis Call Completed: Yes Discharging clinician: Harpreet Wagoner Anticipated date of discharge: 12/09/17 - Constitutional Vitals: Temp Pulse Resp BP Pulse Ox 98.4 F 72 18 95/59 96 12/09/17 11:21 12/09/17 11:21 12/09/17 11:21 12/09/17 11:21 12/09/17 11:21 General appearance: Present: A&O X 3, morbidly obese, no acute distress Exam: Gen.: Vitals noted. No acute distress. AAOx3, morbidly obese, resting in bed HEENT: PERRL/EOMI, oropharynx clear, Normocephalic, atraumatic Cardiac: Irregular rhythm, no murmur, +S1/S2 Pulmonary: CTA bilaterally, no wheezes, rales or rhonchi, equal chest expansion Abdomen: soft, mildly tender right lower quadrant however this is greatly improved from previous. No left lower quadrant tenderness, BS noted, no guarding, mildly distended Back: Nontender throughout. MSK: no joint swelling noted Extremities: 1+ nonpitting BLE edema, nontender calf, no cyanosis or clubbing Neuro: A&Ox3, moves all extremities, no focal deficits Psych: Appropriate mood and behavior - Patient Status Disposition: Transfer Inpatient Rehab Fac Condition: Fair Overall status at discharge: patient is progressing back to baseline - Discharge Instructions Follow Up With: Juan Ramon Sandra MD [Partnered Physician] - Additional Instructions: Please follow up with primary care physician as well as your urologist. Your urologist will determine the next action for your kidney stone. Also please remember that an ovarian cyst was seen on your right side which may be causing your pain, it is important to follow-up with your primary care physician for this. Please take all antibiotics as prescribed. - Diet and Activity Activity: increase activity as tolerated, resume usual activities as tolerated Diet: diabetic diet - VTE Documentation of Mechanical Device: Intermittent pneumatic compression device
--- NOTE | 2017-12-09 13:30 | Physician Discharge Referral ---
ExtendedCare Referral Info Transfer To: [facility] Provider in Charge after Transfer: PCP - Diagnosis (1) DVT prophylaxis Priority: Secondary Status: Acute (2) CAD (coronary artery disease) Priority: Secondary Status: Chronic (3) UTI (urinary tract infection) Priority: Secondary Status: Acute (4) Morbid obesity Priority: Secondary Status: Chronic (5) Atrial fibrillation Priority: Secondary Status: Chronic (6) Diabetes Priority: Secondary Status: Chronic (7) Hypokalemia Priority: Secondary Status: Acute (8) Decubitus ulcer Priority: Secondary Status: Chronic (9) Chronic diastolic (congestive) heart failure Priority: Secondary Status: Chronic (10) Pyelonephritis Priority: Primary Status: Acute (11) Colitis Priority: Secondary Status: Resolved Prognosis: Fair Aware of Diagnosis: Patient Aware of Prognosis: Patient - Transfer Medications Prescriptions: Carvedilol [Coreg] 3.125 mg PO BIDWM #10 tablet Ciprofloxacin [Cipro] 500 mg PO BID #16 tablet Linezolid [Zyvox] 600 mg PO BID #24 tablet Silvasorb 1 appl TP DAILY #1 tube Home Medications: Promethazine [Phenergan] 25 mg PO Q6HR PRN 06/20/17 [History] HYDROcodone/Acet 5/325 mg [[place] 5-325 mg] 1 tab PO Q6H PRN #28 tablet 06/24/17 [Rx] Fluticasone Propionate [Allergy Relief] 2 spr NS DAILY 12/05/17 [History] Furosemide [Lasix] 40 mg PO DAILY 12/05/17 [History] Patient Taking Own Medication 1 each PO AD 12/06/17 [History] Carvedilol [Coreg] 3.125 mg PO BIDWM #10 tablet 12/09/17 [Rx] Ciprofloxacin [Cipro] 500 mg PO BID #16 tablet 12/09/17 [Rx] Linezolid [Zyvox] 600 mg PO BID #24 tablet 12/09/17 [Rx] Rivaroxaban [Xarelto] 20 mg PO 1700 tablet 12/09/17 [Rx] Silvasorb 1 appl TP DAILY #1 tube 12/09/17 [Rx] Allergies/Adverse Reactions: 3 Allergy/AdvReac Type Severity Reaction Status Date / Time levofloxacin [From Levaquin] Allergy Hives Verified 09/28/16 08:50 Penicillins Allergy Blister Verified 09/28/16 08:50 prednisone Allergy See Verified 09/28/16 08:50 Comments Sulfa (Sulfonamide Allergy Hives Verified 09/28/16 08:50 Antibiotics) Banana AdvReac Severe Blister Verified 09/28/16 08:50 egg AdvReac Severe Throat Verified 09/28/16 08:50 swelling nitrofurantoin AdvReac Severe Bruising Verified 09/28/16 08:50 [From Macrobid] on arms - Respiratory Orders Smoking Cessation: Smoking cessation has been advised. For more information, call the [place] Tobacco Quit Line at 9-269-RCRS-NOW. - Advance Directives Code Status: Full Code - Rehabiliation Orders Rehab Orders: Evaluation for Physical Therapy, Evaluation for Occupational Therapy - Treatments Skin tear care topically daily PRN per policy - Diet Orders No Concentrated Sweets CERTIFICATION: I certify that the transfer of the above named patient to an Extended Care Facility is necessary for the continuing treatment of the diagnosis listed. The above information is true and accurate reflection of patient's current condition. Confidential - Redisclosure prohibited without a patient's written consent.
[2017-12-09] MEDS: Gabapentin 100 MG CAPSULE PO SCH (20:17)
[2017-12-10 01:10] LABS: Basophils # 0.1 K/mcL (0.0-0.2); Basophils % 0.6 %; Eosinophils # 0.8 K/mcL (0.0-0.6); Eosinophils % 8.5 %; Hematocrit 36.8 % (35.3-44.9); Immature Granulocytes % 0.4 % (0-4); Lymphocytes # 2.7 K/mcL (0.6-4.6); Lymphocytes % 27.8 %; Mean Corpuscular HGB Conc 35.3 g/dL (31.6-35.5); Mean Corpuscular Hemoglobin 31.3 pg (28.0-33.3); Mean Corpuscular Volume 88.5 fL (83.0-100.0); Mean Platelet Volume 10.6 fL (9.4-12.4); Monocytes # 0.9 K/mcL (0.0-1.3); Neutrophils # 5.2 K/mcL (1.6-8.9); Platelet Count 191 K/mcL (140-400); Red Blood Count 4.16 M/mcL (3.82-4.97); Red Cell Distribution Width 14.5 % (11.5-14.5); Segmented Neutrophils % 53.7 %
[2017-12-10 01:21] LABS: BUN/Creatinine Ratio 17 (6-26); Blood Urea Nitrogen 14 mg/dL (8-23); Calcium 8.1 mg/dL (8.6-10.3); Carbon Dioxide 23 mEq/L (23-29); Chloride 107 mEq/L (98-107); Glucose 180 mg/dL (70-105); Osmolality,Calculated 291 (280-300); Potassium 3.4 mEq/L (3.5-5.1); Sodium 138 mEq/L (136-145); eGFR For African Americans > 60 (> 60); eGFR For Non-African Americans > 60 (> 60)
[2017-12-10] MEDS: Cefepime HCl 2,000 MG in Water for inj. (sterile) 20 ML 20 ML IVP SCH ×2 (05:14→18:21)
[2017-12-10] MEDS: Insulin LISPRO 300 UNITS/3 ML VIAL SQ SCH ×4 (07:29→20:11)
[2017-12-10] MEDS: Furosemide 40 MG TABLET PO SCH (09:30)
--- NOTE | 2017-12-10 10:10 | Internal Med Progress Note ---
Date of Encounter: 12/10/17 Time of Encounter: 10:08 - Assessment and plan (1) Pyelonephritis Current Visit: Yes Status: Acute Assessment and plan: - Urinalysis showing signs of infection. Urine culture is grossly mixed and unable to determine causative organism. Repeat culture pending. - CT scan performed emergency department showing right kidney stone, right ureteral inflammation, thickening suggestive of infection - Previous cultures showed Escherichia coli, Klebsiella and multidrug-resistant Escherichia coli in the past - Complicated UTI due to presence of stones. CT scan shows nonobstructive nephrolithiasis. In right kidney measuring 1.8 cm - Urology has been consulted by the ER team. Status post right ureteral stent placement on 12/05/17. Urology recommends long-term antibiotics for retained stone as well as outpatient urology follow-up for eventual stone removal - Renal function stable. - ID consulted for antibiotic recommendations. Input appreciated. - Repeat urine culture preliminary result of enterococcus, will await sensitivities Plan -Continue cefepime - Will deescalate as able pending culture and sensitivities. - Urology and ID consult as above. - Supportive care -Urine cultures positive for enterococcus which is sensitive to Zyvox, vancomycin, ampicillin. -Patient does have multiple antibiotic allergies and we discharged home on Zyvox and Cipro for a total of 14 days of treatment. Continue current pplan. (2) Hematuria Current Visit: Yes Status: Acute Assessment and plan: Patient is on Xarelto and was held yesterday. She had slight improvement but now hematuria returned. - Continue to hold Xarelto Monitor today for improvement Flush catheter prn Appreciate Urology recommendations. also if catheter should remain in and duration. Qualifiers: Hematuria type: gross Qualified Code(s): R31.0 - Gross hematuria (3) Atrial fibrillation Current Visit: Yes Status: Chronic Assessment and plan: Atrial fibrillation with controlled heart rate. Heart rate in 70s-80s Started on Coreg here. Tolerating well with boarderline HTN Hold Xarelto because of hematuria. Qualifiers: Atrial fibrillation type: paroxysmal Qualified Code(s): I48.0 - Paroxysmal atrial fibrillation (4) UTI (urinary tract infection) Current Visit: Yes Status: Acute Assessment and plan: Complicated, recurrent, with hx of MDROs, mgt as in pyelonephritis No evidence of sepsis at this time As above for pyelonephritis Qualifiers: Urinary tract infection type: acute pyelonephritis Qualified Code(s): N10 - Acute pyelonephritis (5) CAD (coronary artery disease) Current Visit: Yes Status: Chronic Assessment and plan: continue home meds. Reportedly was not taking BB, ASA, statin, TAMARA. History of CAD with 1 stent placed. Continue BB. Wound benefit from statin and ASA after discharge. Further questioning shows that BB was stopped at skilled nursing for boarderline hypotension, stopped ASA for unknown reason. Qualifiers: Coronary Disease-Associated Artery/Lesion type: [place] artery [place] vs. transplanted heart: [place] Associated angina: angina presence unspecified Qualified Code(s): I25.10 - Atherosclerotic heart disease of [place] coronary artery without angina pectoris (6) Morbid obesity Current Visit: Yes Status: Chronic Assessment and plan: lifestyle modification as outpatient (7) Diabetes Current Visit: Yes Status: Chronic Assessment and plan: FS ACHS ADA diet low dose correctional insulin Blood sugar of 107 this morning A1c of 4.8% in June 2017 Qualifiers: Diabetes mellitus type: type 2 Diabetes mellitus fci insulin use: without fci use Diabetes mellitus complication status: with hyperglycemia Qualified Code(s): E11.65 - Type 2 diabetes mellitus with hyperglycemia (8) Hypokalemia Current Visit: Yes Status: Acute Assessment and plan: - Potassium 3.3 this morning, will replenish - Avoiding oral potassium replenishment as patient reports nausea - Replace as needed with IV K - Daily labs (9) Decubitus ulcer Current Visit: Yes Status: Chronic Assessment and plan: chronic, consult wound care for eval Stage I, present on admission Frequent bed turns per protocol Qualifiers: Pressure ulcer location: buttock Pressure ulcer stage: stage 2 Laterality : unspecified laterality Qualified Code(s): L89.302 - Pressure ulcer of unspecified buttock, stage 2 (10) Chronic diastolic (congestive) heart failure Current Visit: No Status: Chronic Assessment and plan: History of heart failure with preserved ejection fraction Appears euvolemic on exam, lower extremity swelling at baseline Monitor fluid status carefully Continue home meds (11) Colitis Current Visit: Yes Status: Resolved Assessment and plan: - Evidence of Stercoral colitis with large stool burden on CT scan in emergency department - Patient has been complaining of intermittent diarrhea for the past 3 days - She is incontinent of bowel at baseline - Per nursing report, she has had frequent bowel movements which had been medium to large and thicker - No reported diarrhea today. - KUB on 12/07/17 showing non obstructive gas pattern. Plan - For now as this is less likely to be impaction with diarrhea flowing around given consistency or nursing - Will obtain KUB to assess for improvement of obstruction. Pending. - Continue cefepime as above, will consider Flagyl if no improvement as well as further evaluation for impaction - Consider GI consult if no improvement. (12) DVT prophylaxis Current Visit: Yes Status: Acute Assessment and plan: on xarelto, for A. fib - Time Spent With Patient Total time spent is greater than 50% in coordination of care (as documented) at patient's floor/unit and/or counseling patient: - Subjective Interval history: No acute events. No fevers/chills, n/v, diarrrhea/constipation. Tolerating food. Hematuria improved yesterday but today resumed. - Constitutional Vitals: Temp Pulse Resp BP Pulse Ox 98.2 F 66 14 104/66 96 12/10/17 06:42 12/10/17 06:42 12/10/17 06:42 12/10/17 06:42 12/10/17 06:42 General appearance: Present: A&O X 3, morbidly obese, no acute distress Internal Medicine: Result - Labs CBC & Chem 7: 12/10/17 00:40 12/10/17 00:40 Labs: Short CBC 12/10/17 Range/Units 00:40 WBC 9.6 (4.3-11.1) K/mcL Hgb 13.0 (11.5-15.4) g/dL Hct 36.8 (35.3-44.9) % Plt Count 191 (140-400) K/mcL Neutrophils # 5.2 (1.6-8.9) K/mcL BMP 12/10/17 00:40 Sodium 138 Potassium 3.4 L Chloride 107 Carbon Dioxide 23 BUN 14 Creatinine 0.82 Glucose 180 H Calcium 8.1 L - VTE Documentation of Mechanical Device: Intermittent pneumatic compression device Consult Discharge Plan - Plan Additional Instructions: Please follow up with primary care physician as well as your urologist. Your urologist will determine the next action for your kidney stone. Also please remember that an ovarian cyst was seen on your right side which may be causing your pain, it is important to follow-up with your primary care physician for this. Please take all antibiotics as prescribed. Referrals: Juan Ramon Sandra MD [Partnered Physician] - Prescriptions: Carvedilol [Coreg] 3.125 mg PO BIDWM #10 tablet Ciprofloxacin [Cipro] 500 mg PO BID #16 tablet Linezolid [Zyvox] 600 mg PO BID #24 tablet Silvasorb 1 appl TP DAILY #1 tube
[2017-12-10] MEDS: Silvasorb 44.4 ML TUBE TP SCH (11:46)
[2017-12-10] MEDS: Gabapentin 100 MG CAPSULE PO SCH (20:13)
[2017-12-11] MEDS: Cefepime HCl 2,000 MG in Water for inj. (sterile) 20 ML 20 ML IVP SCH ×2 (05:13→17:40)
[2017-12-11 05:30] LABS: Basophils % 0.4 %; Eosinophils # 0.7 K/mcL (0.0-0.6); Eosinophils % 7.8 %; Hematocrit 34.9 % (35.3-44.9); Hemoglobin 11.7 g/dL (11.5-15.4); Immature Granulocytes % 0.4 % (0-4); Lymphocytes # 2.7 K/mcL (0.6-4.6); Mean Corpuscular HGB Conc 33.5 g/dL (31.6-35.5); Mean Corpuscular Hemoglobin 30.5 pg (28.0-33.3); Mean Corpuscular Volume 90.9 fL (83.0-100.0); Mean Platelet Volume 10.4 fL (9.4-12.4); Monocytes # 0.7 K/mcL (0.0-1.3); Monocytes % 8.2 %; Neutrophils # 4.7 K/mcL (1.6-8.9); Platelet Count 163 K/mcL (140-400); Red Blood Count 3.84 M/mcL (3.82-4.97); Red Cell Distribution Width 14.7 % (11.5-14.5); Segmented Neutrophils % 53.2 %
[2017-12-11] MEDS: Insulin LISPRO 300 UNITS/3 ML VIAL SQ SCH ×4 (08:48→21:21)
[2017-12-11] MEDS: Furosemide 40 MG TABLET PO SCH (09:01)
[2017-12-11] MEDS: Silvasorb 44.4 ML TUBE TP SCH (09:02)
--- NOTE | 2017-12-11 10:14 | Urology Progress Note ---
Date of Encounter: 12/11/17 Time of Encounter: 10:12 - Assessment and Plan (1) Hematuria Current Visit: Yes Status: Acute Assessment and plan: I irrigated her catheter and it did clear with sterile water. Continue to hold Xarelto if possible. Aspirin is okay. Continue go catheter. Hand irrigate catheter as needed. Will follow along. Qualifiers: Hematuria type: gross Qualified Code(s): R31.0 - Gross hematuria Progress Note Narrative: 67 year old woman status post right ureteral stent. Xarelto was restarted and there was some mild hematuria. Urine is light pink to tea color in the Go. Objective Initial Vital Signs Temp Pulse Resp BP Pulse Ox 97.9 F 85 18 114/84 97 12/04/17 15:10 12/04/17 15:10 12/04/17 15:10 12/04/17 15:10 12/04/17 15:10 - General physical appearance Present: well developed, well nourished, no distress - Respiratory Present: normal respiratory effort - Abdomen Present: soft - Genitourinary Present: other ([address] with tea to pink colored urine.) - Labs 12/11/17 05:19 12/10/17 00:40 - VTE Documentation of Mechanical Device: Intermittent pneumatic compression device Consult Discharge Plan - Plan Additional Instructions: Please follow up with primary care physician as well as your urologist. Your urologist will determine the next action for your kidney stone. Also please remember that an ovarian cyst was seen on your right side which may be causing your pain, it is important to follow-up with your primary care physician for this. Please take all antibiotics as prescribed. Referrals: Juan Ramon Sandra MD [Partnered Physician] - Prescriptions: Carvedilol [Coreg] 3.125 mg PO BIDWM #10 tablet Ciprofloxacin [Cipro] 500 mg PO BID #16 tablet Linezolid [Zyvox] 600 mg PO BID #24 tablet Silvasorb 1 appl TP DAILY #1 tube
--- NOTE | 2017-12-11 14:42 | Internal Med Progress Note ---
Date of Encounter: 12/11/17 Time of Encounter: 14:38 - Assessment and plan (1) Pyelonephritis Current Visit: Yes Status: Acute Assessment and plan: - Urinalysis showing signs of infection. Urine culture is grossly mixed and unable to determine causative organism. Repeat culture pending. - CT scan performed emergency department showing right kidney stone, right ureteral inflammation, thickening suggestive of infection - Previous cultures showed Escherichia coli, Klebsiella and multidrug-resistant Escherichia coli in the past - Complicated UTI due to presence of stones. CT scan shows nonobstructive nephrolithiasis. In right kidney measuring 1.8 cm - Urology has been consulted by the ER team. Status post right ureteral stent placement on 12/05/17. Urology recommends long-term antibiotics for retained stone as well as outpatient urology follow-up for eventual stone removal Plan - Continue cefepime - Will deescalate as able pending culture and sensitivities. - Urine cultures positive for enterococcus which is sensitive to Zyvox, vancomycin, ampicillin. -Zyvox and Cipro for a total of 14 days of treatment. (2) Hematuria Current Visit: Yes Status: Acute Assessment and plan: Xarelto held, and after 2 days hematuria improved. Improved with flushing catheter as well. Resume Xarelto when okay with primary care physician and Urology Will start aspirin DC Sanchez for voiding trial Qualifiers: Hematuria type: gross Qualified Code(s): R31.0 - Gross hematuria (3) Atrial fibrillation Current Visit: Yes Status: Chronic Assessment and plan: Atrial fibrillation with controlled heart rate. Heart rate in 70s-80s Started on Coreg here. Tolerating well with boarderline HTN Xarelto held because of hematuria, start aspirin. Resume Xarelto when okay with primary care physician and Urology Qualifiers: Atrial fibrillation type: paroxysmal Qualified Code(s): I48.0 - Paroxysmal atrial fibrillation (4) UTI (urinary tract infection) Current Visit: Yes Status: Acute Assessment and plan: Complicated, recurrent, with hx of MDROs, mgt as in pyelonephritis No evidence of sepsis at this time As above for pyelonephritis Qualifiers: Urinary tract infection type: acute pyelonephritis Qualified Code(s): N10 - Acute pyelonephritis (5) CAD (coronary artery disease) Current Visit: Yes Status: Chronic Assessment and plan: continue home meds. Reportedly was not taking BB, ASA, statin, TAMARA. History of CAD with 1 stent placed. Continue BB. Wound benefit from statin and ASA after discharge. Further questioning shows that BB was stopped at detention for boarderline hypotension, stopped ASA for unknown reason. Qualifiers: Coronary Disease-Associated Artery/Lesion type: [place] artery [place] vs. 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: without custodial use Diabetes mellitus complication status: with hyperglycemia Qualified Code(s): E11.65 - Type 2 diabetes mellitus with hyperglycemia (8) Decubitus ulcer Current Visit: Yes Status: Chronic Assessment and plan: chronic, consult wound care for eval Stage I, present on admission Frequent bed turns per protocol Qualifiers: Pressure ulcer location: buttock Pressure ulcer stage: stage 2 Laterality : unspecified laterality Qualified Code(s): L89.302 - Pressure ulcer of unspecified buttock, stage 2 (9) Chronic diastolic (congestive) heart failure Current Visit: No Status: Chronic Assessment and plan: History of heart failure with preserved ejection fraction Appears euvolemic on exam, lower extremity swelling at baseline Monitor fluid status carefully Continue home meds (10) Colitis Current Visit: Yes Status: Resolved Assessment and plan: - Evidence of Stercoral colitis with large stool burden on CT scan in emergency department - Patient has been complaining of intermittent diarrhea for the past 3 days - She is incontinent of bowel at baseline - Per nursing report, she has had frequent bowel movements which had been medium to large and thicker - No reported diarrhea today. - KUB on 12/07/17 showing non obstructive gas pattern. Plan improved after stercocoral impaction resolved. (11) DVT prophylaxis Current Visit: Yes Status: Acute Assessment and plan: on xarelpatricia, for A. fib - Time Spent With Patient Total time spent is greater than 50% in coordination of care (as documented) at patient's floor/unit and/or counseling patient: - Subjective Interval history: Hematuria improved today, still bright red but more pinkish - Constitutional Vitals: Temp Pulse Resp BP Pulse Ox 98.1 F 69 14 101/60 95 12/11/17 12:15 12/11/17 12:15 12/11/17 12:15 12/11/17 12:15 12/11/17 12:15 General appearance: Present: A&O X 3, morbidly obese, no acute distress Exam: Gen.: Vitals noted. No acute distress. AAOx3, morbidly obese, resting in bed HEENT: PERRL/EOMI, oropharynx clear, Normocephalic, atraumatic Cardiac: Irregular rhythm, no murmur, +S1/S2 Pulmonary: CTA bilaterally, no wheezes, rales or rhonchi, equal chest expansion Abdomen: soft, mildly tender right lower quadrant however this is greatly improved from previous. No left lower quadrant tenderness, BS noted, no guarding, mildly distended Back: Nontender throughout. MSK: no joint swelling noted Extremities: 1+ nonpitting BLE edema, nontender calf, no cyanosis or clubbing Neuro: A&Ox3, moves all extremities, no focal deficits Psych: Appropriate mood and behavior Internal Medicine: Result - Labs CBC & Chem 7: 12/11/17 05:19 12/10/17 00:40 Labs: Short CBC 12/11/17 Range/Units 05:19 WBC 8.9 (4.3-11.1) K/mcL Hgb 11.7 (11.5-15.4) g/dL Hct 34.9 L (35.3-44.9) % Plt Count 163 (140-400) K/mcL Neutrophils # 4.7 (1.6-8.9) K/mcL - VTE Documentation of Mechanical Device: Intermittent pneumatic compression device Consult Discharge Plan - Plan Additional Instructions: Please follow up with primary care physician as well as your urologist. Your urologist will determine the next action for your kidney stone. Also please remember that an ovarian cyst was seen on your right side which may be causing your pain, it is important to follow-up with your primary care physician for this. Please take all antibiotics as prescribed. Referrals: Juan Ramon Sandra MD [Partnered Physician] - Prescriptions: Carvedilol [Coreg] 3.125 mg PO BIDWM #10 tablet Ciprofloxacin [Cipro] 500 mg PO BID #16 tablet Linezolid [Zyvox] 600 mg PO BID #24 tablet Silvasorb 1 appl TP DAILY #1 tube
[2017-12-11] MEDS: 0.9 % Sodium Chloride 1,000 ML IVC SCH (15:29)
[2017-12-11] MEDS: Gabapentin 100 MG CAPSULE PO SCH (21:20)
[2017-12-12] MEDS: 0.9 % Sodium Chloride 1,000 ML IVC SCH (01:40)
[2017-12-12] MEDS: Cefepime HCl 2,000 MG in Water for inj. (sterile) 20 ML 20 ML IVP SCH (05:25)
[2017-12-12 05:43] LABS: BUN/Creatinine Ratio 27 (6-26); Blood Urea Nitrogen 14 mg/dL (8-23); Calcium 8.1 mg/dL (8.6-10.3); Carbon Dioxide 22 mEq/L (23-29); Chloride 114 mEq/L (98-107); Glucose 109 mg/dL (70-105); Osmolality,Calculated 293 (280-300); Potassium 3.7 mEq/L (3.5-5.1); Sodium 141 mEq/L (136-145); eGFR For African Americans > 60 (> 60); eGFR For Non-African Americans > 60 (> 60)
[2017-12-12] MEDS: Insulin LISPRO 300 UNITS/3 ML VIAL SQ SCH ×2 (07:46→12:38)
--- NOTE | 2017-12-12 07:46 | Urology Progress Note ---
Date of Encounter: 12/12/17 Time of Encounter: 07:45 - Assessment and Plan (1) Hematuria Current Visit: Yes Status: Acute Assessment and plan: Hematuria seems to be improving. She can follow up with Dr. Bee for discussion of her stone treatment. Okay to discharge per urology. Qualifiers: Hematuria type: gross Qualified Code(s): R31.0 - Gross hematuria Progress Note Narrative: Doing well today. Urine is clearing well. She is not having any issues at this time. Objective Initial Vital Signs Temp Pulse Resp BP Pulse Ox 97.9 F 85 18 114/84 97 12/04/17 15:10 12/04/17 15:10 12/04/17 15:10 12/04/17 15:10 12/04/17 15:10 - General physical appearance Present: well developed, well nourished, no distress - Respiratory Present: normal respiratory effort - Abdomen Present: soft - Genitourinary Urine Appearance: Present: Clear (Clear to tea colored.) - Labs 12/11/17 05:19 12/12/17 04:26 Diabetes panel 12/12/17 Range/Units 04:26 Sodium 141 (136-145) mEq/L Potassium 3.7 (3.5-5.1) mEq/L Chloride 114 H (98-107) mEq/L Carbon Dioxide 22 L (23-29) mEq/L BUN 14 (8-23) mg/dL Creatinine 0.52 L (0.60-1.20) mg/dL Glucose 109 H (70-105) mg/dL Calcium 8.1 L (8.6-10.3) mg/dL Calcium panel 12/12/17 Range/Units 04:26 Calcium 8.1 L (8.6-10.3) mg/dL Pituitary panel 12/12/17 Range/Units 04:26 Sodium 141 (136-145) mEq/L Potassium 3.7 (3.5-5.1) mEq/L Chloride 114 H (98-107) mEq/L Carbon Dioxide 22 L (23-29) mEq/L BUN 14 (8-23) mg/dL Creatinine 0.52 L (0.60-1.20) mg/dL Glucose 109 H (70-105) mg/dL Calcium 8.1 L (8.6-10.3) mg/dL Adrenal panel 04/30/18 Range/Units 04:26 Sodium 141 (136-145) mEq/L Potassium 3.7 (3.5-5.1) mEq/L Chloride 114 H (98-107) mEq/L Carbon Dioxide 22 L (23-29) mEq/L BUN 14 (8-23) mg/dL Creatinine 0.52 L (0.60-1.20) mg/dL Glucose 109 H (70-105) mg/dL Calcium 8.1 L (8.6-10.3) mg/dL - VTE Documentation of Mechanical Device: Intermittent pneumatic compression device Consult Discharge Plan - Plan Additional Instructions: Please follow up with primary care physician as well as your urologist. Your urologist will determine the next action for your kidney stone. Also please remember that an ovarian cyst was seen on your right side which may be causing your pain, it is important to follow-up with your primary care physician for this. Please take all antibiotics as prescribed. Referrals: Juan Ramon Sandra MD [Partnered Physician] - Prescriptions: Carvedilol [Coreg] 3.125 mg PO BIDWM #10 tablet Ciprofloxacin [Cipro] 500 mg PO BID #16 tablet Linezolid [Zyvox] 600 mg PO BID #24 tablet Silvasorb 1 appl TP DAILY #1 tube
[2017-12-12] MEDS: Silvasorb 44.4 ML TUBE TP SCH (08:57)
[2017-12-12] MEDS ORDERED: Aspirin Enteric Coated 81 MG Tablet PO SCH (09:00)
--- NOTE | 2017-12-12 09:59 | Internal Med Progress Note ---
<EnzoscoutHarpreet hoyt - Last Filed: 12/12/17 13:35> Date of Encounter: 12/12/17 Time of Encounter: 09:57 - Assessment and plan (1) DVT prophylaxis Status: Acute Assessment and plan: Held xarelto for hematuria, started on aspirin Will follow-up with urology as outpatient for kidney stone Scheduled for discharge today pending voiding trial (2) CAD (coronary artery disease) Status: Chronic Assessment and plan: continue home meds. Reportedly was not taking BB, ASA, statin, TAMARA. History of CAD with 1 stent placed. Continue BB. Wound benefit from statin and ASA after discharge. Further questioning shows that BB was stopped at [facility] for boarderline hypotension, stopped ASA for unknown reason. Qualifiers: Coronary Disease-Associated Artery/Lesion type: cherokee artery [place] vs. transplanted heart: cherokee heart Associated angina: angina presence unspecified Qualified Code(s): I25.10 - Atherosclerotic heart disease of cherokee coronary artery without angina pectoris (3) UTI (urinary tract infection) Status: Acute Assessment and plan: Complicated, recurrent, with hx of MDROs, mgt as in pyelonephritis No evidence of sepsis at this time As above for pyelonephritis Qualifiers: Urinary tract infection type: acute pyelonephritis Qualified Code(s): N10 - Acute pyelonephritis (4) Morbid obesity Status: Chronic Assessment and plan: lifestyle modification as outpatient (5) Atrial fibrillation Status: Chronic Assessment and plan: Atrial fibrillation with controlled heart rate. Heart rate in 70s-80s Started on Coreg here. Tolerating well with boarderline HTN HASBLED scrore 2, CHADVASC 5 Xarelto held because of hematuria, start aspirin. Resume Xarelto when okay with primary care physician and Urology Qualifiers: Atrial fibrillation type: paroxysmal Qualified Code(s): I48.0 - Paroxysmal atrial fibrillation (6) Diabetes Status: Chronic Assessment and plan: FS ACHS ADA diet low dose correctional insulin Blood sugar of 109 this morning A1c of 4.8% in June 2017 Qualifiers: Diabetes mellitus type: type 2 Diabetes mellitus terminal operations supervisor insulin use: without shelter use Diabetes mellitus complication status: with hyperglycemia Qualified Code(s): E11.65 - Type 2 diabetes mellitus with hyperglycemia (7) Decubitus ulcer Status: Chronic Assessment and plan: chronic, consult wound care for eval Stage ii, present on admission Frequent bed turns per protocol Qualifiers: Pressure ulcer location: buttock Pressure ulcer stage: stage 2 Laterality : unspecified laterality Qualified Code(s): L89.302 - Pressure ulcer of unspecified buttock, stage 2 (8) Chronic diastolic (congestive) heart failure Status: Chronic Assessment and plan: History of heart failure with preserved ejection fraction Appears euvolemic on exam, lower extremity swelling at baseline Monitor fluid status carefully Continue home meds (9) Pyelonephritis Status: Acute Assessment and plan: - Urinalysis showing signs of infection. Urine culture is grossly mixed and unable to determine causative organism. Repeat culture pending. - CT scan performed emergency department showing right kidney stone, right ureteral inflammation, thickening suggestive of infection - Previous cultures showed Escherichia coli, Klebsiella and multidrug-resistant Escherichia coli in the past - Complicated UTI due to presence of stones. CT scan shows nonobstructive nephrolithiasis. In right kidney measuring 1.8 cm - Urology has been consulted by the ER team. Status post right ureteral stent placement on 12/05/17. Urology recommends long-term antibiotics for retained stone as well as outpatient urology follow-up for eventual stone removal Plan - Plan to discharge on Zyvox and Cipro - Urine cultures positive for enterococcus which is sensitive to Zyvox, vancomycin, ampicillin. -Zyvox and Cipro for a total of 14 days of treatment. (10) Colitis Status: Resolved Assessment and plan: - Evidence of Stercoral colitis with large stool burden on CT scan in emergency department - Patient has been complaining of intermittent diarrhea for the past 3 days - She is incontinent of bowel at baseline - Per nursing report, she has had frequent bowel movements which had been medium to large and thicker - Intermedic chronic diarrhea at baseline per patient, abdominal pain much improved - KUB on 12/07/17 showing non obstructive gas pattern. Plan improved after stercocoral impaction resolved. (11) Hematuria Status: Acute Assessment and plan: Xarelto held, and after 2 days hematuria improved. Improved with flushing catheter as well. Resume Xarelto when okay with primary care physician and Urology Will start aspirin DC Sanchez for voiding trial, plan to discharge to [place] [facility] if passes voiding trial Qualifiers: Hematuria type: gross Qualified Code(s): R31.0 - Gross hematuria - Time Spent With Patient Total time spent is greater than 50% in coordination of care (as documented) at patient's floor/unit and/or counseling patient: 25 - 35 minutes - Subjective Interval history: Patient seen and examined at bedside this morning. She was not discharged over the weekend due to persistent hematuria. Her symptoms have improved after stopping xarelto and starting aspirin. No nausea or vomiting. Pain has greatly improved from previous. Mildly painful in RLQ. Intermittent diarrhea at baseline. - Constitutional Vitals: Temp Pulse Resp BP Pulse Ox 97.5 F L 74 18 102/63 97 12/12/17 07:15 12/12/17 07:15 12/12/17 07:15 12/12/17 07:15 12/12/17 07:15 General appearance: Present: A&O X 3, morbidly obese, no acute distress Exam: Gen.: Vitals noted. No acute distress. AAOx3 HEENT: PERRL/EOMI, oropharynx clear, Normocephalic, atraumatic Cardiac: RRR, no murmur, +S1/S2 Pulmonary: CTA bilaterally, no wheezes, rales or rhonchi, equal chest expansion Abdomen: soft, mildly tender to palpation in left lower quadrant, BS noted, no guarding Skin: Stage II noninfected sacral ulcer present on admission MSK: ROM intact, no joint swelling noted Extremities: Mild nonpitting BLE edema reportedly at baseline, nontender calf, no cyanosis or clubbing Neuro: A&Ox3, moves all extremities, no focal deficits Psych: Appropriate mood and behavior Internal Medicine: Result - Labs CBC & Chem 7: 12/11/17 05:19 12/12/17 04:26 Labs: BMP 12/12/17 04:26 Sodium 141 Potassium 3.7 Chloride 114 H Carbon Dioxide 22 L BUN 14 Creatinine 0.52 L Glucose 109 H Calcium 8.1 L - VTE Documentation of Mechanical Device: Intermittent pneumatic compression device Consult Discharge Plan - Plan Additional Instructions: Please follow up with primary care physician as well as your urologist. Your urologist will determine the next action for your kidney stone. Also please remember that an ovarian cyst was seen on your right side which may be causing your pain, it is important to follow-up with your primary care physician for this. Please take all antibiotics as prescribed. Referrals: Juan Bee MD [Partnered Physician] - 12/26/17 10:15 am Prescriptions: Carvedilol [Coreg] 3.125 mg PO BIDWM #10 tablet Ciprofloxacin [Cipro] 500 mg PO BID #16 tablet Linezolid [Zyvox] 600 mg PO BID #24 tablet Silvasorb 1 appl TP DAILY #1 tube <Narcisa Crowell - Last Filed: 12/12/17 17:23> Date of Encounter: 12/12/17 - Assessment and plan (1) DVT prophylaxis Status: Acute (2) CAD (coronary artery disease) Status: Chronic Qualifiers: Coronary Disease-Associated Artery/Lesion type: cherokee artery [place] vs. transplanted heart: cherokee heart Associated angina: angina presence unspecified Qualified Code(s): I25.10 - Atherosclerotic heart disease of cherokee coronary artery without angina pectoris (3) UTI (urinary tract infection) Status: Acute Qualifiers: Urinary tract infection type: acute pyelonephritis Qualified Code(s): N10 - Acute pyelonephritis (4) Morbid obesity Status: Chronic (5) Atrial fibrillation Status: Chronic Qualifiers: Atrial fibrillation type: paroxysmal Qualified Code(s): I48.0 - Paroxysmal atrial fibrillation (6) Diabetes Status: Chronic Qualifiers: Diabetes mellitus type: type 2 Diabetes mellitus terminal operations supervisor insulin use: without terminal operations supervisor use Diabetes mellitus complication status: with hyperglycemia Qualified Code(s): E11.65 - Type 2 diabetes mellitus with hyperglycemia (7) Decubitus ulcer Status: Chronic Qualifiers: Pressure ulcer location: buttock Pressure ulcer stage: stage 2 Laterality : unspecified laterality Qualified Code(s): L89.302 - Pressure ulcer of unspecified buttock, stage 2 (8) Chronic diastolic (congestive) heart failure Status: Chronic (9) Pyelonephritis Status: Acute (10) Colitis Status: Resolved (11) Hematuria Status: Acute Qualifiers: Hematuria type: gross Qualified Code(s): R31.0 - Gross hematuria - Time Spent With Patient Total time spent is greater than 50% in coordination of care (as documented) at patient's floor/unit and/or counseling patient: - Constitutional Vitals: Temp Pulse Resp BP Pulse Ox 98.1 F 89 16 104/71 97 12/12/17 12:46 12/12/17 12:46 12/12/17 12:46 12/12/17 12:46 12/12/17 12:46 Internal Medicine: Result - Labs CBC & Chem 7: 12/11/17 05:19 12/12/17 04:26 Labs: BMP 12/12/17 04:26 Sodium 141 Potassium 3.7 Chloride 114 H Carbon Dioxide 22 L BUN 14 Creatinine 0.52 L Glucose 109 H Calcium 8.1 L - Attending Attestation I performed a history and physical examination of the patient and discussed his/ her management with the resident. I reviewed the residents note and agree with the documented findings and plan of care.
[2017-12-12 12:48] VITALS: BP 104/71
[2017-12-12] MEDS: *HR* HYDROcodone/Acet 5/325 mg TABLET PO PRN (14:03)
[2017-12-12] MEDS ORDERED: Aminoglycoside Consult 1 EACH MC ONE (14:28)
== END 2017-12-12 14:29 | DRG 694 ==
LOC: EMEROO 14:53 → 3ANU 14:53
PROVIDERS: ADMIT Internal Medicine; ATTEND Internal Medicine Cardiovascular Disease

== ENCOUNTER 2018-01-28 17:01 | Inpatient (IN) ==
[2018-01-28] MEDS ORDERED: 0.9 % Sodium Chloride 1,000 ML IVC ONE ×2 (17:47→19:55)
[2018-01-28] MEDS ORDERED: *HR* Promethazine 25 MG/ML VIAL IVP ONE (17:47)
[2018-01-28 18:29] LABS: Basophils % 0.1 %; Eosinophils % 0.1 %; Hematocrit 39.7 % (35.3-44.9); Hemoglobin 13.2 g/dL (11.5-15.4); Immature Granulocytes % 0.4 % (0-4); Lymphocytes # 1.1 K/mcL (0.6-4.6); Lymphocytes % 7.7 %; Mean Corpuscular HGB Conc 33.2 g/dL (31.6-35.5); Mean Corpuscular Hemoglobin 29.5 pg (28.0-33.3); Mean Corpuscular Volume 88.8 fL (83.0-100.0); Mean Platelet Volume 11.3 fL (9.4-12.4); Monocytes # 0.6 K/mcL (0.0-1.3); Monocytes % 4.5 %; Neutrophils # 12.2 K/mcL (1.6-8.9); Platelet Count 162 K/mcL (140-400); Red Blood Count 4.47 M/mcL (3.82-4.97); Red Cell Distribution Width 14.5 % (11.5-14.5); Segmented Neutrophils % 87.2 %
[2018-01-28 18:44] LABS: Alanine Aminotransferase 22 Units/L (7-52); Albumin 3.4 g/dL (3.5-5.7); Albumin/Globulin Ratio 0.8 (1.1-2.2); Alkaline Phosphatase 127 Units/L (34-104); Aspartate Amino Transferase 35 Units/L (13-39); BUN/Creatinine Ratio 23 (6-26); Bilirubin,Direct 0.5 mg/dL (0.0-0.2); Bilirubin,Indirect 0.8 mg/dL (0.0-1.2); Bilirubin,Total 1.3 mg/dL (0.3-1.0); Blood Urea Nitrogen 19 mg/dL (8-23); Calcium 9.2 mg/dL (8.6-10.3); Carbon Dioxide 18 mEq/L (23-29); Chloride 106 mEq/L (98-107); Globulin 4.3 g/dL (2.4-3.5); Glucose 161 mg/dL (70-105); Lipase 11 Units/L (11-82); Osmolality,Calculated 284 (280-300); Sodium 134 mEq/L (136-145); Total Protein 7.7 g/dL (6.4-8.9); eGFR For African Americans > 60 (> 60); eGFR For Non-African Americans > 60 (> 60)
--- NOTE | 2018-01-28 18:56 | Emergency Department Note ---
Disposition Clinical Impression: Urinary tract infection, Constipation, Abdominal pain Disposition: Admitted As Inpatient Condition: Fair Referrals: Nithin Hernandez [Primary Care Provider] - Forms: ED Satisfaction Letter, Work/School Release Time of Disposition: 21:03 Abdominal Pain HPI - General Chief Complaint: ED Abdominal Pain Stated Complaint: RLQ abd pain/ureteral stent placed 1 month ago Time Seen by Provider: 01/28/18 17:06 Source: patient, family, EMS - History of Present Illness Pain Scale: 10 - Related Data Home Medications Medication Instructions Recorded Confirmed Furosemide [Lasix] 40 mg PO DAILY PRN 12/05/17 12/12/17 Aspirin [Lo-Dose Aspirin EC] 81 mg PO DAILY 12/12/17 12/12/17 Previous Rx's Medication Instructions Recorded HYDROcodone/Acet 5/325 mg [Elmo 1 tab PO Q6H PRN #28 tablet 06/24/17 5-325 mg] Magnesium Oxide [Mag-Ox] 400 mg PO BID #14 tablet 12/29/17 Potassium Chloride 20 meq PO DAILY #7 tab.er.prt 12/29/17 Desitin (Zinc Oxide) [Desitin] 1 appl TP Q1H #3 tube 01/10/18 Allergies Allergy/AdvReac Type Severity Reaction Status Date / Time shellfish derived Allergy Severe Anaphylaxis Verified 01/28/18 17:08 levofloxacin [From Levaquin] Allergy Hives Verified 01/28/18 17:08 Penicillins Allergy Blister Verified 01/28/18 17:08 prednisone Allergy See Verified 01/28/18 17:08 Comments Sulfa (Sulfonamide Allergy Hives Verified 01/28/18 17:08 Antibiotics) egg AdvReac Severe Throat Verified 01/28/18 17:08 swelling nitrofurantoin AdvReac Severe Bruising Verified 01/28/18 17:08 [From Macrobid] on arms Abdominal Pain PMH - Past Medical History Medical history: Reports: non-contributory, asthma, atrial fibrillation, CHF, CVA, kidney stones Female Surgical History: Reports: hysterectomy, ureteral stent Psychiatric history: Reports: anxiety, depression, panic disorder - Social History Smoking status: Never smoker Alcohol use: Reports: none Drug use: Reports: none Physical Exam - General Limitations: no limitations General appearance: alert, appears intoxicated Course Vital Signs Temperature 99.1 F 01/28/18 17:09 Pulse Rate 96 01/28/18 17:09 Respiratory Rate 20 01/28/18 17:09 Blood Pressure 119/48 01/28/18 17:09 O2 Sat by Pulse Oximetry 98 01/28/18 17:09 Temperature 99.1 F 01/28/18 17:09 Pulse Rate 97 01/28/18 19:58 Respiratory Rate 16 01/28/18 19:58 Blood Pressure 126/66 01/28/18 19:58 O2 Sat by Pulse Oximetry 95 01/28/18 19:58 Oxygen Delivery Oxygen Delivery Room Air Abdominal Pain - Lab Data Result diagrams: 01/28/18 18:14 01/28/18 18:14 Lab Results 01/28/18 01/28/18 01/28/18 Range/Units 18:14 18:14 18:14 WBC 14.0 H (4.3-11.1) K/mcL RBC 4.47 (3.82-4.97) M/mcL Hgb 13.2 (11.5-15.4) g/dL Hct 39.7 (35.3-44.9) % MCV 88.8 (83.0-100.0) fL MCH 29.5 (28.0-33.3) pg MCHC 33.2 (31.6-35.5) g/dL RDW 14.5 (11.5-14.5) % Plt Count 162 (140-400) K/mcL MPV 11.3 (9.4-12.4) fL Immature Gran % 0.4 (0-4) % Seg Neutrophils % 87.2 % Lymphocytes % 7.7 % Monocytes % 4.5 % Eosinophils % 0.1 % Basophils % 0.1 % Neutrophils # 12.2 H (1.6-8.9) K/mcL Lymphocytes # 1.1 (0.6-4.6) K/mcL Monocytes # 0.6 (0.0-1.3) K/mcL Eosinophils # 0.0 (0.0-0.6) K/mcL Basophils # 0.0 (0.0-0.2) K/mcL Sodium 134 L (136-145) mEq/L Potassium 4.0 (3.5-5.1) mEq/L Chloride 106 (98-107) mEq/L Carbon Dioxide 18 L (23-29) mEq/L BUN 19 (8-23) mg/dL Creatinine 0.82 (0.60-1.20) mg/dL Est GFR ( Amer) > 60 (> 60) Est GFR (Non-Af Amer) > 60 (> 60) BUN/Creatinine Ratio 23 (6-26) Glucose 161 H (70-105) mg/dL Calculated Osmolality 284 (280-300) Lactic Acid 2.8 H (0.5-2.2) mmol/L Calcium 9.2 (8.6-10.3) mg/dL Total Bilirubin 1.3 H (0.3-1.0) mg/dL Direct Bilirubin 0.5 H (0.0-0.2) mg/dL Indirect Bilirubin 0.8 (0.0-1.2) mg/dL AST 35 (13-39) Units/L ALT 22 (7-52) Units/L Alkaline Phosphatase 127 H (34-104) Units/L Serum Total Protein 7.7 (6.4-8.9) g/dL Albumin 3.4 L (3.5-5.7) g/dL Globulin 4.3 H (2.4-3.5) g/dL Albumin/Globulin Ratio 0.8 L (1.1-2.2) Lipase 11 (11-82) Units/L Ur Specimen Adequacy Urine Color (Yellow) Urine Clarity (Clear) Urine pH (5.0-8.0) pH Units Ur Specific [place] (1.010-1.025) Urine Protein (Neg-Trace) mg/dL Urine Glucose (UA) (Normal) mg/dL Urine Ketones (Negative) mg/dL Urine Blood (Negative) Urine Nitrite (Negative) Urine Bilirubin (Negative) Urine Urobilinogen (Normal) mg/dL Ur Leukocyte Esterase (Negative) Urine Microscopic RBC (0-3) per hpf Urine Microscopic WBC (0-3) per hpf Ur Squamous Epith Cells (None-Few) per lpf Ur Renal Epithelial Cell (None-Few) per hpf Urine Bacteria (None-Few) per hpf Hyaline Casts (None-Few) per lpf Urine Mucus (Few) Urine Yeast (None Seen) per hpf Ur Culture Indicated? (NO) 01/28/18 Range/Units 19:07 WBC (4.3-11.1) K/mcL RBC (3.82-4.97) M/mcL Hgb (11.5-15.4) g/dL Hct (35.3-44.9) % MCV (83.0-100.0) fL MCH (28.0-33.3) pg MCHC (31.6-35.5) g/dL RDW (11.5-14.5) % Plt Count (140-400) K/mcL MPV (9.4-12.4) fL Immature Gran % (0-4) % Seg Neutrophils % % Lymphocytes % % Monocytes % % Eosinophils % % Basophils % % Neutrophils # (1.6-8.9) K/mcL Lymphocytes # (0.6-4.6) K/mcL Monocytes # (0.0-1.3) K/mcL Eosinophils # (0.0-0.6) K/mcL Basophils # (0.0-0.2) K/mcL Sodium (136-145) mEq/L Potassium (3.5-5.1) mEq/L Chloride (98-107) mEq/L Carbon Dioxide (23-29) mEq/L BUN (8-23) mg/dL Creatinine (0.60-1.20) mg/dL Est GFR ( Amer) (> 60) Est GFR (Non-Af Amer) (> 60) BUN/Creatinine Ratio (6-26) Glucose (70-105) mg/dL Calculated Osmolality (280-300) Lactic Acid (0.5-2.2) mmol/L Calcium (8.6-10.3) mg/dL Total Bilirubin (0.3-1.0) mg/dL Direct Bilirubin (0.0-0.2) mg/dL Indirect Bilirubin (0.0-1.2) mg/dL AST (13-39) Units/L ALT (7-52) Units/L Alkaline Phosphatase (34-104) Units/L Serum Total Protein (6.4-8.9) g/dL Albumin (3.5-5.7) g/dL Globulin (2.4-3.5) g/dL Albumin/Globulin Ratio (1.1-2.2) Lipase (11-82) Units/L Ur Specimen Adequacy See below A Urine Color Brown (Yellow) Urine Clarity Turbid A (Clear) Urine pH 6.0 (5.0-8.0) pH Units Ur Specific [place] 1.024 (1.010-1.025) Urine Protein >=300 H (Neg-Trace) mg/dL Urine Glucose (UA) Normal (Normal) mg/dL Urine Ketones Trace H (Negative) mg/dL Urine Blood Large H (Negative) Urine Nitrite Positive A (Negative) Urine Bilirubin Small H (Negative) Urine Urobilinogen Normal (Normal) mg/dL Ur Leukocyte Esterase Large H (Negative) Urine Microscopic RBC Present (0-3) per hpf Urine Microscopic WBC TNTC H (0-3) per hpf Ur Squamous Epith Cells Present (None-Few) per lpf Ur Renal Epithelial Cell Present (None-Few) per hpf Urine Bacteria Present (None-Few) per hpf Hyaline Casts None Seen (None-Few) per lpf Urine Mucus Present (Few) Urine Yeast Present H (None Seen) per hpf Ur Culture Indicated? YES A (NO) Attestation Statement - Attestation Attestation: I, Jesse Ludwig DO, examined this patient [id number] and my medical decision-making was reviewed with Jabari Antonio PGY-1, Resident Physician. I agree with the documented findings, disposition and treatment plan as described except to the extent set forth below. Please see my progress notes for details. 67-year-old female seen and examined some arrival in conjunction with resident physician. Patient presents here today with acute onset of abdominal pain nausea vomiting and urinary issues. Patient had this one time last month which is diagnosed with a renal stone that required stenting. She denies any fevers or chills chest pain shortness breath headache vision changes. She has had nausea vomiting but no diarrhea. Patient describes the pain in the right-sided flank that is radiating down into her lower abdomen that is been persistently getting worse. She has any blood in her stool denies any blood in her urine. Patient is otherwise clinically stable despite the pain and discomfort. EMS transport without any complication. Vital signs are stable on presentation. Lungs are clear heart is regular abdomen is soft but she does describe diffuse abdominal pain and discomfort. Specific guarding or rigidity. Patient will be started on fluids pain medication antibiotics will be held until heinfectious source. Patient has a history of renal stones which could be the etiology at this point. Urinalysis CBC chemistry and lactic acid lipase longer function testing will be ordered. Urinalysis will be resulted. Disposition pending the full workup treatment course and evaluation. Patient is a foul smell on presentation exam for urinary tract infection. See detailed documentation of physical exam, medical intervention, medical decision-making and disposition the resident physician's note. No critical care applied this time. 1999 Patient has a significant urinary tract infection. After reviewing her antibiotic history patient will be given gentamicin based on the sensitivities from previous evaluations. Patient's blood pressure has been stable. Lactic acid is 2.82 L of fluid have been ordered. Disposition will most likely be admission secondary to the belly pain. Waiting for CT imaging at this time. 2099 Patient has significant urinary tract infection. Ureteral stent is in place in no acute complications of this time. Patient will require admission secondary to the recent manipulation as well as urinary tract infection this point. We will continue to monitor here until admission process is completed. Otherwise patient is been hemodynamically stable with no acute signs of decompensation or instability.
--- NOTE | 2018-01-28 18:57 | Emergency Department Note ---
Disposition Clinical Impression: Urinary tract infection Qualifiers: Urinary tract infection type: site unspecified Hematuria presence: with hematuria Qualified Code(s): N39.0 - Urinary tract infection, site not specified ; R31.9 - Hematuria, unspecified Constipation Qualifiers: Constipation type: unspecified constipation type Qualified Code(s): K59.00 - Constipation, unspecified Abdominal pain Qualifiers: Abdominal location: unspecified location Qualified Code(s): R10.9 - Unspecified abdominal pain Disposition: Admitted As Inpatient Condition: Fair Time of Disposition: 22:00 Abdominal Pain HPI - General Chief Complaint: ED Abdominal Pain Stated Complaint: RLQ abd pain/ureteral stent placed 1 month ago Time Seen by Provider: 01/28/18 17:06 Source: patient, family, EMS - History of Present Illness HPI Narrative: 67-year-old female with past medical history of CHF, COPD, CAD, atrial fibrillation, diabetes, presents here to the emergency room complaining of right -sided abdominal pain, nausea, and vomiting that started last night. She lives at home and her family members take care of her. Patient tells me she had a stent placed by urology and record review shows that this was placed on . I see in the clinical works electronic medical record that she has a few reschedule appointments with urology in the meantime. Patient is unable to give a reliable history regarding symptoms of urinary tract infection because she tells me that she had a stroke in 2016 that only affected the feeling in her genital region. She denies any fever/chills, chest pain, shortness of breath, or increase in baseline lower extremity edema Pain Scale: 10 - Related Data Home Medications Medication Instructions Recorded Confirmed Furosemide [Lasix] 40 mg PO DAILY PRN 12/05/17 12/12/17 Aspirin [Lo-Dose Aspirin EC] 81 mg PO DAILY 12/12/17 12/12/17 Previous Rx's Medication Instructions Recorded HYDROcodone/Acet 5/325 mg [[place] 1 tab PO Q6H PRN #28 tablet 06/24/17 5-325 mg] Magnesium Oxide [Mag-Ox] 400 mg PO BID #14 tablet 12/29/17 Potassium Chloride 20 meq PO DAILY #7 tab.er.prt 12/29/17 Desitin (Zinc Oxide) [Desitin] 1 appl TP Q1H #3 tube 01/10/18 Allergies Allergy/AdvReac Type Severity Reaction Status Date / Time shellfish derived Allergy Severe Anaphylaxis Verified 01/28/18 17:08 levofloxacin [From Levaquin] Allergy Hives Verified 01/28/18 17:08 Penicillins Allergy Blister Verified 01/28/18 17:08 prednisone Allergy See Verified 01/28/18 17:08 Comments Sulfa (Sulfonamide Allergy Hives Verified 01/28/18 17:08 Antibiotics) egg AdvReac Severe Throat Verified 01/28/18 17:08 swelling nitrofurantoin AdvReac Severe Bruising Verified 01/28/18 17:08 [From Macrobid] on arms Constitutional: Denies: fever, chills, weight change Eyes: Denies: eye pain, eye discharge, vision change ENT ED: Denies: ear pain, throat pain, dental pain, hearing loss, epistaxis, congestion, dysphagia Cardiovascular: Denies: chest pain, palpitations, dyspnea on exertion, edema, syncope Respiratory: Denies: cough, dyspnea, wheezes, hemoptysis, stridor Gastrointestinal: Reports: abdominal pain, nausea, vomiting. Denies: diarrhea, constipation, hematemesis, melena, hematochezia Musculoskeletal: Denies: neck pain, arthralgia, myalgia Neurological: Denies: numbness, paresthesias, confusion, abnormal gait, vertigo Hematological/Lymphatic: Denies: easy bleeding, easy bruising Allergic/Immunologic: Denies: facial swelling, urticaria Abdominal Pain PMH - Past Medical History Medical history: Reports: non-contributory, asthma, atrial fibrillation, CHF, CVA, kidney stones Female Surgical History: Reports: hysterectomy, ureteral stent Psychiatric history: Reports: anxiety, depression, panic disorder - Social History Smoking status: Never smoker Alcohol use: Reports: none Drug use: Reports: none Physical Exam - General Limitations: no limitations General appearance: alert, appears intoxicated - Head Head exam: atraumatic, normocephalic, normal inspection - Eye Eye exam: Present: normal appearance, PERRL, EOMI - ENT ENT exam: normal exam, normal oropharynx, mucous membranes moist - Neck Neck exam: Present: normal inspection - Chest Chest inspection: Present: normal inspection, symmetric chest wall rise - Respiratory Respiratory exam: Absent: respiratory distress, stridor, accessory muscle use - Cardiovascular Cardiovascular exam: Present: regular rate, normal rhythm, normal heart sounds - Abdominal Exam Abdominal exam: Present: soft, tenderness (diffuse), guarding, rebound - Extremities Exam Extremities exam: Present: pedal edema (Upper resident) - Neurological Exam Neurological exam: Present: alert, oriented X3 - Skin Skin exam: Present: other (Healing blisters in sacral region, no streaking, no drainage) Course Course Narrative: Patient was seen and evaluated at bedside. She is complaining of abdominal pain and is tender to palpation diffusely. She has hyperesthesia diffusely in her body and says this is normal for her, she thinks she has fibromyalgia. Vital Signs Temperature 99.1 F 01/28/18 17:09 Pulse Rate 96 01/28/18 17:09 Respiratory Rate 20 01/28/18 17:09 Blood Pressure 119/48 01/28/18 17:09 O2 Sat by Pulse Oximetry 98 01/28/18 17:09 Temperature 99.1 F 01/28/18 17:09 Pulse Rate 95 01/28/18 22:36 Respiratory Rate 20 01/28/18 22:36 Blood Pressure 130/61 01/28/18 22:36 O2 Sat by Pulse Oximetry 93 01/28/18 22:36 Oxygen Delivery Oxygen Delivery Room Air Abdominal Pain - MDM Narrative Medical decision making narrative: Patient uses an adult diaper at home for urinary incontinence and when I was examining her buttocks for reported bed sores of the buttocks a very foul smelling urine was observed. Urinalysis was obtained and showed large blood, leukocyte esterase, nitrites. The patient reports blistering with use of Levaquin and penicillins in the past. Review of sensitivity for a recent urinary tract infection showed that it was sensitive to gentamicin and we will start her on this . Contacted urologist composition weatherboard installer Dr. Tran and reviewed the case. He will see the patient in the morning. Reviewed the case with Dr. Inman hospitalist who would like the patient admitted to telemetry - Lab Data Lab results reviewed: Yes I reviewed the patient's lab results. Result diagrams: 01/28/18 18:14 01/28/18 18:14 Lab Results 01/28/18 01/28/18 01/28/18 Range/Units 18:14 18:14 18:14 WBC 14.0 H (4.3-11.1) K/mcL RBC 4.47 (3.82-4.97) M/mcL Hgb 13.2 (11.5-15.4) g/dL Hct 39.7 (35.3-44.9) % MCV 88.8 (83.0-100.0) fL MCH 29.5 (28.0-33.3) pg MCHC 33.2 (31.6-35.5) g/dL RDW 14.5 (11.5-14.5) % Plt Count 162 (140-400) K/mcL MPV 11.3 (9.4-12.4) fL Immature Gran % 0.4 (0-4) % Seg Neutrophils % 87.2 % Lymphocytes % 7.7 % Monocytes % 4.5 % Eosinophils % 0.1 % Basophils % 0.1 % Neutrophils # 12.2 H (1.6-8.9) K/mcL Lymphocytes # 1.1 (0.6-4.6) K/mcL Monocytes # 0.6 (0.0-1.3) K/mcL Eosinophils # 0.0 (0.0-0.6) K/mcL Basophils # 0.0 (0.0-0.2) K/mcL Sodium 134 L (136-145) mEq/L Potassium 4.0 (3.5-5.1) mEq/L Chloride 106 (98-107) mEq/L Carbon Dioxide 18 L (23-29) mEq/L BUN 19 (8-23) mg/dL Creatinine 0.82 (0.60-1.20) mg/dL Est GFR ( Amer) > 60 (> 60) Est GFR (Non-Af Amer) > 60 (> 60) BUN/Creatinine Ratio 23 (6-26) Glucose 161 H (70-105) mg/dL Calculated Osmolality 284 (280-300) Lactic Acid 2.8 H (0.5-2.2) mmol/L Calcium 9.2 (8.6-10.3) mg/dL Total Bilirubin 1.3 H (0.3-1.0) mg/dL Direct Bilirubin 0.5 H (0.0-0.2) mg/dL Indirect Bilirubin 0.8 (0.0-1.2) mg/dL AST 35 (13-39) Units/L ALT 22 (7-52) Units/L Alkaline Phosphatase 127 H (34-104) Units/L Serum Total Protein 7.7 (6.4-8.9) g/dL Albumin 3.4 L (3.5-5.7) g/dL Globulin 4.3 H (2.4-3.5) g/dL Albumin/Globulin Ratio 0.8 L (1.1-2.2) Lipase 11 (11-82) Units/L Ur Specimen Adequacy Urine Color (Yellow) Urine Clarity (Clear) Urine pH (5.0-8.0) pH Units Ur Specific [place] (1.010-1.025) Urine Protein (Neg-Trace) mg/dL Urine Glucose (UA) (Normal) mg/dL Urine Ketones (Negative) mg/dL Urine Blood (Negative) Urine Nitrite (Negative) Urine Bilirubin (Negative) Urine Urobilinogen (Normal) mg/dL Ur Leukocyte Esterase (Negative) Urine Microscopic RBC (0-3) per hpf Urine Microscopic WBC (0-3) per hpf Ur Squamous Epith Cells (None-Few) per lpf Ur Renal Epithelial Cell (None-Few) per hpf Urine Bacteria (None-Few) per hpf Hyaline Casts (None-Few) per lpf Urine Mucus (Few) Urine Yeast (None Seen) per hpf Ur Culture Indicated? (NO) 01/28/18 01/28/18 01/28/18 Range/Units 19:07 20:06 22:03 WBC (4.3-11.1) K/mcL RBC (3.82-4.97) M/mcL Hgb (11.5-15.4) g/dL Hct (35.3-44.9) % MCV (83.0-100.0) fL MCH (28.0-33.3) pg MCHC (31.6-35.5) g/dL RDW (11.5-14.5) % Plt Count (140-400) K/mcL MPV (9.4-12.4) fL Immature Gran % (0-4) % Seg Neutrophils % % Lymphocytes % % Monocytes % % Eosinophils % % Basophils % % Neutrophils # (1.6-8.9) K/mcL Lymphocytes # (0.6-4.6) K/mcL Monocytes # (0.0-1.3) K/mcL Eosinophils # (0.0-0.6) K/mcL Basophils # (0.0-0.2) K/mcL Sodium (136-145) mEq/L Potassium (3.5-5.1) mEq/L Chloride (98-107) mEq/L Carbon Dioxide (23-29) mEq/L BUN (8-23) mg/dL Creatinine (0.60-1.20) mg/dL Est GFR ( Amer) (> 60) Est GFR (Non-Af Amer) (> 60) BUN/Creatinine Ratio (6-26) Glucose (70-105) mg/dL Calculated Osmolality (280-300) Lactic Acid 2.7 H 3.0 H (0.5-2.2) mmol/L Calcium (8.6-10.3) mg/dL Total Bilirubin (0.3-1.0) mg/dL Direct Bilirubin (0.0-0.2) mg/dL Indirect Bilirubin (0.0-1.2) mg/dL AST (13-39) Units/L ALT (7-52) Units/L Alkaline Phosphatase (34-104) Units/L Serum Total Protein (6.4-8.9) g/dL Albumin (3.5-5.7) g/dL Globulin (2.4-3.5) g/dL Albumin/Globulin Ratio (1.1-2.2) Lipase (11-82) Units/L Ur Specimen Adequacy See below A Urine Color Brown (Yellow) Urine Clarity Turbid A (Clear) Urine pH 6.0 (5.0-8.0) pH Units Ur Specific [place] 1.024 (1.010-1.025) Urine Protein >=300 H (Neg-Trace) mg/dL Urine Glucose (UA) Normal (Normal) mg/dL Urine Ketones Trace H (Negative) mg/dL Urine Blood Large H (Negative) Urine Nitrite Positive A (Negative) Urine Bilirubin Small H (Negative) Urine Urobilinogen Normal (Normal) mg/dL Ur Leukocyte Esterase Large H (Negative) Urine Microscopic RBC Present (0-3) per hpf Urine Microscopic WBC TNTC H (0-3) per hpf Ur Squamous Epith Cells Present (None-Few) per lpf Ur Renal Epithelial Cell Present (None-Few) per hpf Urine Bacteria Present (None-Few) per hpf Hyaline Casts None Seen (None-Few) per lpf Urine Mucus Present (Few) Urine Yeast Present H (None Seen) per hpf Ur Culture Indicated? YES A (NO) - Radiology Data Radiology results reviewed: Yes I reviewed the patient's radiology results. - EKG Data EKG attestation: Yes I reviewed and interpreted this EKG. Attestation Statement - Attestation Attestation: I, Jesse Ludwig DO, examined this patient [id number] and my medical decision-making was reviewed with Jabari Antonio PGY-1, Resident Physician. I agree with the documented findings, disposition and treatment plan as described except to the extent set forth below. Please see my progress notes for details.
[2018-01-28 19:23] LABS: Bilirubin,Urine Small (Negative); Blood,Urine Large (Negative); Clarity,Urine Turbid (Clear); Color,Urine Brown (Yellow); Glucose,Urine (UA) Normal (Normal); Ketones,Urine Trace mg/dL (Negative); Leukocyte Esterase,Urine Large (Negative); Nitrite,Urine Positive (Negative); Protein,Urine >=300 mg/dL (Neg-Trace); Specific Gravity,Urine 1.024 (1.010-1.025); Urobilinogen,Urine Normal (Normal)
[2018-01-28 19:24] LABS: WBC,Urine TNTC per hpf (0-3)
[2018-01-28 19:26] LABS: RBC,Urine Present per hpf (0-3); Squamous Epithelial Cell,Urine Present per lpf (None-Few)
[2018-01-28 19:27] LABS: Bacteria,Urine Present per hpf (None-Few); Hyaline Casts,Urine None Seen per lpf (None-Few); Mucus,Urine Present (Few); Renal Epithelial Cells,Urine Present per hpf (None-Few); Yeast,Urine Present per hpf (None Seen)
[2018-01-28] MEDS ORDERED: *HR* OxyCODONE/APAP 5/325 TABLET PO ONE (21:38)
[2018-01-29] MEDS ORDERED: Naloxone 0.4 MG/ML INJ IVP PRN (00:38)
[2018-01-29] MEDS ORDERED: 0.9 % Sodium Chloride 1,000 ML IVC ONE (00:53)
--- NOTE | 2018-01-29 00:59 | Internal Med History&Physical ---
Date of Encounter: 01/29/18 Time of Encounter: 23:30 Internal Medicine - H&P: HPI Chief complaint: nausea, abdominal pain Admitted From: Home Plans for Post Hospital Care: Home History of present illness: Ms. Golden is a 67 year old female Patient presented to the emergency room this afternoon after experiencing right lower quadrant abdominal pain. She states that last night she felt nauseous, she tried eating some crackers which she later vomited those up. She had weakness and noted that her urine began to smell foul. Her abdominal pain worsened and she notified her home health nurse to come and evaluate her. Upon examination by the home health nurse, she was recommended to go to the emergency room. CT in the ER showed right sided renal calculi demonstrated 18 mm. Is also minimal right-sided hydronephrosis. Of note patient has a right- sided nephroureteral stent in place. CT also showed stable appearing thin- walled fluid collection in the right lower quadrant. Patient's urine collected in the emergency room indicated likely infection. She will be admitted for pyelonephritis. Past Med Surg Social Fam HX - Past Medical History Medical history: non-contributory, asthma, atrial fibrillation, CHF, CVA, kidney stones Additional medical history: recurrent UTI's Psychiatric history: anxiety, depression, panic disorder - Past Surgical History Surgical History: angioplasty/stent, cholecystectomy, hysterectomy Additional surgical history: bladder surgeries, lap band , right ureteral stent - Social History Smoking Status: Never smoker Smokeless Tobacco Status: No Alcohol use: none Drug use: none - Family History Brother Living Status: Still Living Hx Family Cardiac Disorders: Yes (HTN) Hx Family Endocrine Disorder: Yes (Diabetes) Mother Living Status: Hx Family Cardiac Disorders: Yes (htn) Hx Family Endocrine Disorder: Yes (dm) Father Living Status: Hx Family Cardiac Disorders: Yes (CABG x3 HTN diabetes) Hx Family Respiratory Disorders: No Hx Family Cancer: No Hx Family GI Disorders: No Hx Family Endocrine Disorder: Yes (diabetes) Hx Family Neuromuscular Disorders: No Hx Family Neurologic Disorders: No Hx Family HEENT Disorders: No Hx Family Autoimmune Disorders: No Internal Medicine - H&P: Meds HYDROcodone/Acet 5/325 mg [[place] 5-325 mg] 1 tab PO Q6H PRN #28 tablet 06/24/17 [Rx] Furosemide [Lasix] 40 mg PO DAILY PRN 12/05/17 [History] Aspirin [Lo-Dose Aspirin EC] 81 mg PO DAILY 12/12/17 [History] Magnesium Oxide [Mag-Ox] 400 mg PO BID #14 tablet 12/29/17 [Rx] Potassium Chloride 20 meq PO DAILY #7 tab.er.prt 12/29/17 [Rx] Desitin (Zinc Oxide) [Desitin] 1 appl TP Q1H #3 tube 01/10/18 [Rx] 3 Allergy/AdvReac Type Severity Reaction Status Date / Time shellfish derived Allergy Severe Anaphylaxis Verified 01/28/18 17:08 levofloxacin [From Levaquin] Allergy Hives Verified 01/28/18 17:08 Penicillins Allergy Blister Verified 01/28/18 17:08 prednisone Allergy See Verified 01/28/18 17:08 Comments Sulfa (Sulfonamide Allergy Hives Verified 01/28/18 17:08 Antibiotics) egg AdvReac Severe Throat Verified 01/28/18 17:08 swelling nitrofurantoin AdvReac Severe Bruising Verified 01/28/18 17:08 [From Macrobid] on arms All Systems PM: A 10-system review of systems was performed and is negative for pertinent findings except as documented above in the HPI. - Constitutional Vitals: Temp Pulse Resp BP Pulse Ox 99.1 F 95 20 130/61 93 01/28/18 17:09 01/28/18 22:36 01/28/18 22:36 01/28/18 22:36 01/28/18 22:36 General appearance: Present: mild distress, A&O X 3 - Head Head exam: Present: atraumatic - ENT ENT exam: Present: mucous membranes dry - Respiratory Respiratory exam: Present: CTAB. Absent: rales, rhonchi, wheezes - Cardiovascular Cardiovascular exam: Present: RRR. Absent: systolic murmur - GI/Abdominal GI/Abdominal exam: Present: normal bowel sounds, tenderness Additional comments: Tenderness particularly in the right lower quadrant. - Extremities Exam Extremities exam: Present: warm, radial pulses palpable and symmetrical - Neurological Exam Neurological exam: Present: CN II-XII intact, oriented X3 - Skin Additional comments: Chronic decubitus ulcers present Internal Med - H&P Results - Labs CBC & Chem 7: 01/28/18 18:14 01/28/18 18:14 - Assessment and plan (1) Pyelonephritis, acute Current Visit: Yes Status: Acute Assessment and plan: Patient presented with likely pyelonephritis secondary to a right renal stone. She has a chronic history of kidney stones and urinary tract infections. She also has multiple drug-resistant antibiotic issues in the past as well. Spoke with pharmacy about possible treatment options for her, and they recommended ertapenem. Blood cultures have been drawn. Follow-up results of blood cultures Start ertapenem 1 g IV now. Consult urology has been made, patient will be seen in the morning. Bolus IV fluids 1 L now. (2) Abdominal pain Current Visit: Yes Status: Acute Assessment and plan: Secondary to pyelonephritis, and kidney stone. As above patient being seen by urology in the morning. IV fluid bolus 1 L now. Pain medication as needed, will start with [place] 5/325mg. Qualifiers: Abdominal location: right lower quadrant Qualified Code(s): R10.31 - Right lower quadrant pain (3) UTI (urinary tract infection) Current Visit: Yes Status: Acute Assessment and plan: Patient has history of multiple urinary tract infections, has history of right- sided nephroureteral stent. Urine cultures have been obtained, follow-up the results. Urology to see patient in the morning. Ertapenem 1 g IV started now. Qualifiers: Urinary tract infection type: site unspecified Hematuria presence: with hematuria Qualified Code(s): N39.0 - Urinary tract infection, site not specified; R31.9 - Hematuria, unspecified (4) Constipation Current Visit: Yes Status: Acute Assessment and plan: Patient states her last bowel movement was yesterday. CT of her abdomen showed large amount of stool in the rectum. We will monitor her bowel movements while she is here in the hospital. Qualifiers: Constipation type: unspecified constipation type Qualified Code(s): K59.00 - Constipation, unspecified (5) Nausea and vomiting Current Visit: No Status: Acute Assessment and plan: Patient had nausea and vomiting yesterday evening and today. Likely secondary to abdominal pain and infection. Patient received a dose of promethazine in the ER. Continue anti-emetics as needed. Qualifiers: Vomiting type: unspecified Vomiting Intractability: non-intractable Qualified Code(s): R11.2 - Nausea with vomiting, unspecified (6) Leukocytosis Current Visit: No Status: Acute Assessment and plan: Patient had elevated white blood count 14.0. This is likely secondary to her active pyelonephritis. We will continue to monitor. Repeat CBC in the morning Treatment pyelonephritis as above. Follow-up blood cultures when available. Qualifiers: Leukocytosis type: other Qualified Code(s): D72.828 - Other elevated white blood cell count (7) Hyperglycemia Current Visit: Yes Status: Acute Assessment and plan: Patient's blood glucose was 161 in the ER. She has no documented history of diabetes. Check A1c in the morning. (8) Lactic acidosis Current Visit: No Status: Acute Assessment and plan: Patient's lactate was 3.0 in the ER. She received IV fluid bolus. Likely secondary to pyelonephritis and infection. Her other vital signs are normal. Repeat lactate tonight, and tomorrow morning. Give patient another bolus of IV fluids 1L. (9) Bed bug bite Current Visit: Yes Status: Acute Assessment and plan: Bedbugs were noted on patient by nurse. She also has a foul odor which is likely from her infection. Based patient tonight Monitor for any signs of additional bedbugs. Qualifiers: Qualified Code(s): W57.XXXA - Bitten or stung by nonvenomous insect and other nonvenomous arthropods, initial encounter (10) Decubitus ulcer Current Visit: No Status: Chronic Assessment and plan: Chronic, continue wound care Qualifiers: Pressure ulcer location: buttock Pressure ulcer stage: stage 2 Laterality : unspecified laterality Qualified Code(s): L89.302 - Pressure ulcer of unspecified buttock, stage 2 (11) Renal stone Current Visit: No Status: Acute Assessment and plan: On CT renal stone measuring 18 mm on the right. Urology has been consulted, will see patient in the morning. - Time Spent With Patient Total time spent is greater than 50% in coordination of care (as documented) at patient's floor/unit and/or counseling patient: Greater than 35 minutes
[2018-01-29] MEDS: Ertapenem 1,000 MG in 0.9 % Sodium Chloride Mini Bag 100 ML IVPB SCH (02:17)
[2018-01-29 02:30] LABS: Hematocrit 38.3 % (35.3-44.9); Hemoglobin 12.8 g/dL (11.5-15.4); Mean Corpuscular HGB Conc 33.4 g/dL (31.6-35.5); Mean Corpuscular Volume 89.7 fL (83.0-100.0); Mean Platelet Volume 11.4 fL (9.4-12.4); Platelet Count 164 K/mcL (140-400); Red Blood Count 4.27 M/mcL (3.82-4.97); Red Cell Distribution Width 14.6 % (11.5-14.5)
[2018-01-29 03:04] LABS: BUN/Creatinine Ratio 23 (6-26); Blood Urea Nitrogen 20 mg/dL (8-23); Calcium 8.6 mg/dL (8.6-10.3); Carbon Dioxide 17 mEq/L (23-29); Chloride 109 mEq/L (98-107); Glucose 152 mg/dL (70-105); Osmolality,Calculated 286 (280-300); Potassium 4.6 mEq/L (3.5-5.1); Sodium 135 mEq/L (136-145); eGFR For African Americans > 60 (> 60); eGFR For Non-African Americans > 60 (> 60)
[2018-01-29] MEDS: *HR* HYDROcodone/Acet 5/325 mg TABLET PO PRN ×3 (04:08→22:35)
[2018-01-29] MEDS ORDERED: Ondansetron ODT 4 MG TAB.RAPDIS SL PRN (06:08)
[2018-01-29] MEDS: *HR* Heparin 5,000 UNIT/ML VIAL SQ SCH ×2 (07:13→17:19)
--- NOTE | 2018-01-29 08:07 | Urology - Consult Note ---
Date of Encounter: 01/29/18 Time of Encounter: 08:05 - Assessment and Plan (1) Constipation Current Visit: Yes Status: Acute Assessment and plan: Recommend enema and stool softeners. Consider suppository. Qualifiers: Constipation type: unspecified constipation type Qualified Code(s): K59.00 - Constipation, unspecified (2) UTI (urinary tract infection) Current Visit: Yes Status: Acute Assessment and plan: 67-year-old woman with chronic bacterial colonization of her urinary tract. She has a leukocytosis. Continue IV ertapenem and await urine culture results. The stent is in good position. There is no severe hydronephrosis. She does not require change of the stent at this time. We will need to coordinate definitive right ureteroscopic stone extraction once her infection has cleared. Qualifiers: Urinary tract infection type: site unspecified Hematuria presence: with hematuria Qualified Code(s): N39.0 - Urinary tract infection, site not specified; R31.9 - Hematuria, unspecified (3) Abdominal cramping Current Visit: No Status: Acute Assessment and plan: This is likely due to the constipation. (4) Renal stone Current Visit: No Status: Acute Urology CN:HPI Consult date: 01/29/18 Reason for consult Urology: Other (UTI, right renal stone) History of present illness: 67-year-old woman who is well-known to the urology service returns with right lower quadrant pain and concern for urinary tract infection. She has a history of nephrolithiasis and is a long-term patient of Dr. Bee. On 12/05/2017 Dr. Sandra placed a right ureteral stent. She was scheduled to follow-up with Dr. Bee regarding her right renal stone. She was scheduled for surgery, but had to cancel that secondary to an ER visit. Over the last 1-2 days she noted increased right lower quadrant pain. The pain became quite severe yesterday that this brought her to the ER. It was a crampy pain. She came in via ambulance. A CT scan showed good position of the right ureteral stent. Nephrolithiasis remains present in the right kidney. Her colon showed severe constipation. She has been admitted and is on IV ertapenem. She has a history of Escherichia coli and Proteus in her urine. Today, she still has some abdominal pain and reports decreased appetite. She says she is urinating okay. She has not had a bowel movement yet. Past Med Surg Social Fam HX - Past Medical History Medical history: non-contributory, asthma, atrial fibrillation, CHF, CVA, kidney stones Additional medical history: recurrent UTI's Psychiatric history: anxiety, depression, panic disorder - Past Surgical History Surgical History: angioplasty/stent, cholecystectomy, hysterectomy Additional surgical history: bladder surgeries, lap band , right ureteral stent - Social History Smoking Status: Never smoker Smokeless Tobacco Status: No Alcohol use: none Drug use: none - Family History Brother Living Status: Still Living Hx Family Cardiac Disorders: Yes (HTN) Hx Family Endocrine Disorder: Yes (Diabetes) Mother Living Status: Hx Family Cardiac Disorders: Yes (htn) Hx Family Endocrine Disorder: Yes (dm) Father Living Status: Hx Family Cardiac Disorders: Yes (CABG x3 HTN diabetes) Hx Family Respiratory Disorders: No Hx Family Cancer: No Hx Family GI Disorders: No Hx Family Endocrine Disorder: Yes (diabetes) Hx Family Neuromuscular Disorders: No Hx Family Neurologic Disorders: No Hx Family HEENT Disorders: No Hx Family Autoimmune Disorders: No Medications and Allergies HYDROcodone/Acet 5/325 mg [[place] 5-325 mg] 1 tab PO Q6H PRN #28 tablet 06/24/17 [Rx] Furosemide [Lasix] 40 mg PO DAILY PRN 12/05/17 [History] Aspirin [Lo-Dose Aspirin EC] 81 mg PO DAILY 12/12/17 [History] Magnesium Oxide [Mag-Ox] 400 mg PO BID #14 tablet 12/29/17 [Rx] Potassium Chloride 20 meq PO DAILY #7 tab.er.prt 12/29/17 [Rx] Desitin (Zinc Oxide) [Desitin] 1 appl TP Q1H #3 tube 01/10/18 [Rx] 3 Allergy/AdvReac Type Severity Reaction Status Date / Time shellfish derived Allergy Severe Anaphylaxis Verified 01/28/18 17:08 levofloxacin [From Levaquin] Allergy Hives Verified 01/28/18 17:08 Penicillins Allergy Blister Verified 01/28/18 17:08 prednisone Allergy See Verified 01/28/18 17:08 Comments Sulfa (Sulfonamide Allergy Hives Verified 01/28/18 17:08 Antibiotics) egg AdvReac Severe Throat Verified 01/28/18 17:08 swelling nitrofurantoin AdvReac Severe Bruising Verified 01/28/18 17:08 [From Macrobid] on arms Review of Systems - Constitutional no chills, no fever(s) - EENT Nose, mouth and throat: no dizziness - Cardiovascular no chest pain - Respiratory no dyspnea - Gastrointestinal nausea, no vomiting - Genitourinary Genitourinary: no flank pain, no hematuria - Musculoskeletal no back pain - Integumentary no erythema, no rash - Neurological no weakness - Psychiatric no suicidal ideation - Hematologic/Lymphatic no easy bleeding - Allergic/Immunologic no wheezing Exam Initial Vital Signs Temp Pulse Resp BP Pulse Ox 99.1 F 96 20 119/48 98 01/28/18 17:09 01/28/18 17:09 01/28/18 17:09 01/28/18 17:09 01/28/18 17:09 - General physical appearance Present: well developed, well nourished, no distress - Eyes Absent: icteric - ENT Present: normal nares - Neck Present: trachea midline - Respiratory Present: normal respiratory effort - Cardiovascular Cardiovascular exam IM: RRR - Abdomen Abdomen: Present: soft - Integumentary Present: no rash - Neurologic Present: normal coordination - Musculoskeletal Present: other (Grossly normal) Urology Results - Labs 01/29/18 02:07 01/29/18 02:07 Abnormal lab results WBC 15.1 K/mcL (4.3-11.1) H 01/29/18 02:07 RDW 14.6 % (11.5-14.5) H 01/29/18 02:07 Neutrophils # 12.2 K/mcL (1.6-8.9) H 01/28/18 18:14 Sodium 135 mEq/L (136-145) L 01/29/18 02:07 Chloride 109 mEq/L (98-107) H 01/29/18 02:07 Carbon Dioxide 17 mEq/L (23-29) L 01/29/18 02:07 Glucose 152 mg/dL (70-105) H 01/29/18 02:07 Lactic Acid 3.3 mmol/L (0.5-2.2) H 01/29/18 02:07 Total Bilirubin 1.3 mg/dL (0.3-1.0) H 01/28/18 18:14 Direct Bilirubin 0.5 mg/dL (0.0-0.2) H 01/28/18 18:14 Alkaline Phosphatase 127 Units/L (34-104) H 01/28/18 18:14 Albumin 3.4 g/dL (3.5-5.7) L 01/28/18 18:14 Globulin 4.3 g/dL (2.4-3.5) H 01/28/18 18:14 Albumin/Globulin Ratio 0.8 (1.1-2.2) L 01/28/18 18:14 Ur Specimen Adequacy See below A 01/28/18 19:07 Urine Clarity Turbid (Clear) A 01/28/18 19:07 Urine Protein >=300 mg/dL (Neg-Trace) H 01/28/18 19:07 Urine Ketones Trace mg/dL (Negative) H 01/28/18 19:07 Urine Blood Large (Negative) H 01/28/18 19:07 Urine Nitrite Positive (Negative) A 01/28/18 19:07 Urine Bilirubin Small (Negative) H 01/28/18 19:07 Ur Leukocyte Esterase Large (Negative) H 01/28/18 19:07 Urine Microscopic WBC TNTC per hpf (0-3) H 01/28/18 19:07 Urine Yeast Present per hpf (None Seen) H 01/28/18 19:07 Ur Culture Indicated? YES (NO) A 01/28/18 19:07 Diabetes panel 01/29/18 Range/Units 02:07 Sodium 135 L (136-145) mEq/L Potassium 4.6 (3.5-5.1) mEq/L Chloride 109 H (98-107) mEq/L Carbon Dioxide 17 L (23-29) mEq/L BUN 20 (8-23) mg/dL Creatinine 0.86 (0.60-1.20) mg/dL Glucose 152 H (70-105) mg/dL Calcium 8.6 (8.6-10.3) mg/dL Calcium panel 01/29/18 Range/Units 02:07 Calcium 8.6 (8.6-10.3) mg/dL Pituitary panel 01/29/18 Range/Units 02:07 Sodium 135 L (136-145) mEq/L Potassium 4.6 (3.5-5.1) mEq/L Chloride 109 H (98-107) mEq/L Carbon Dioxide 17 L (23-29) mEq/L BUN 20 (8-23) mg/dL Creatinine 0.86 (0.60-1.20) mg/dL Glucose 152 H (70-105) mg/dL Calcium 8.6 (8.6-10.3) mg/dL Adrenal panel 01/29/18 Range/Units 02:07 Sodium 135 L (136-145) mEq/L Potassium 4.6 (3.5-5.1) mEq/L Chloride 109 H (98-107) mEq/L Carbon Dioxide 17 L (23-29) mEq/L BUN 20 (8-23) mg/dL Creatinine 0.86 (0.60-1.20) mg/dL Glucose 152 H (70-105) mg/dL Calcium 8.6 (8.6-10.3) mg/dL All other labs normal. - Imaging CT scan - abdomen: report reviewed, image reviewed CT scan - pelvis: report reviewed, image reviewed Consult Discharge Plan - Plan Referrals: Nithin Hernandez [Primary Care Provider] -
[2018-01-29] MEDS ORDERED: Lactulose Oral Soln 20 GM/30 ML UDC PO ONE (13:22)
[2018-01-29 14:06] LABS: Magnesium 1.9 mg/dL (1.6-2.6); Phosphorous 3.2 mg/dL (2.7-4.5)
[2018-01-29] MEDS: Metoclopramide 10 MG in 0.9 % Sodium Chloride 50 ML IVPB SCH ×2 (14:11→22:25)
--- NOTE | 2018-01-29 17:22 | Internal Med Progress Note ---
Date of Encounter: 01/29/18 Time of Encounter: 15:00 - Assessment and plan (1) Recurrent UTI (urinary tract infection) Current Visit: Yes Status: Acute (2) Generalized weakness Current Visit: No Status: Chronic (3) Constipation Current Visit: Yes Status: Acute Qualifiers: Constipation type: unspecified constipation type Qualified Code(s): K59.00 - Constipation, unspecified - Time Spent With Patient Plan Patient had chronic constipation with the possible stool impaction and leaking of stool around stool impaction causing false diarrhea which causing recurrent urinary tract infection with Escherichia coli, , Enema ,add senna plus in addition to Reglan to help with her severe constipation and patient need to have very close follow-up regarding her bowel regimen. With her significant constipation causing recurrent urinary tract infection in addition to incontinence itself can cause recurrent urinary tract infection. Continue current antibiotic for now I will monitor the patient condition. We will check vitamin D level and vitamin B12 which could be a contributing factor for constipation in case of deficiency Total time spent is greater than 50% in coordination of care (as documented) at patient's floor/unit and/or counseling patient: 25 - 35 minutes - Subjective Interval history: Patient with past medical history of stroke, history of urinary incontinence and stool incontinence and recurrent UTI, patient stated that she had occasional leaking of stool she does not feel it, she thinks she had diarrhea, patient denies any fever or chills - Constitutional Vitals: Temp Pulse Resp BP Pulse Ox 98.3 F 72 16 106/65 95 01/29/18 15:05 01/29/18 15:05 01/29/18 15:05 01/29/18 15:05 01/29/18 15:05 General appearance: Present: mild distress, A&O X 3 - Head Head exam: Present: atraumatic, normocephalic - Neck Neck exam general surgery: Present: supple, trachea midline. Absent: lymphadenopathy - Respiratory Respiratory exam: Present: CTAB. Absent: accessory muscle use, rales, rhonchi, wheezes - Cardiovascular Cardiovascular exam: Present: RRR, +S1, +S2. Absent: diastolic murmur, gallop, rubs, systolic murmur - GI/Abdominal GI/Abdominal exam: Present: normal bowel sounds, soft, tenderness (Mild diffuse abdominal tenderness more in suprapubic area), no peritoneal signs. Absent: distended - Extremities Exam Extremities exam: Present: calf tenderness (Bilateral calf tenderness), warm, radial pulses palpable and symmetrical. Absent: pedal edema - Neurological Exam Neurological exam: Present: CN II-XII intact, oriented X3, no focal deficits. Absent: pronater drift, facial droop, speech deficit Internal Medicine: Result - Labs CBC & Chem 7: 01/29/18 02:07 01/29/18 02:07 Labs: Short CBC 01/29/18 Range/Units 02:07 WBC 15.1 H (4.3-11.1) K/mcL Hgb 12.8 (11.5-15.4) g/dL Hct 38.3 (35.3-44.9) % Plt Count 164 (140-400) K/mcL [facility] 01/29/18 02:07 Sodium 135 L Potassium 4.6 Chloride 109 H Carbon Dioxide 17 L BUN 20 Creatinine 0.86 Glucose 152 H Calcium 8.6 Consult Discharge Plan - Plan Referrals: Nithin Hernandez [Primary Care Provider] -
[2018-01-29] MEDS: Thiamine (B-1) 100 MG TABLET PO SCH (18:00)
[2018-01-29] MEDS: Magnesium Oxide 400 MG TABLET PO SCH (22:24)
[2018-01-29] MEDS: Aspirin Enteric Coated 81 MG Tablet PO SCH (22:24)
[2018-01-29] MEDS: Insulin LISPRO 300 UNITS/3 ML VIAL SQ SCH (23:10)
[2018-01-30] MEDS: Ertapenem 1,000 MG in 0.9 % Sodium Chloride Mini Bag 100 ML IVPB SCH (01:35)
[2018-01-30] MEDS: Metoclopramide 10 MG in 0.9 % Sodium Chloride 50 ML IVPB SCH ×3 (05:00→22:19)
[2018-01-30] MEDS: *HR* Heparin 5,000 UNIT/ML VIAL SQ SCH ×2 (05:03→17:08)
[2018-01-30] MEDS: *HR* HYDROcodone/Acet 5/325 mg TABLET PO PRN ×3 (05:03→23:28)
[2018-01-30 05:06] LABS: Basophils % 0.4 %; Eosinophils # 0.1 K/mcL (0.0-0.6); Eosinophils % 0.9 %; Hematocrit 35.4 % (35.3-44.9); Hemoglobin 11.6 g/dL (11.5-15.4); Immature Granulocytes % 0.3 % (0-4); Lymphocytes # 1.7 K/mcL (0.6-4.6); Lymphocytes % 15.4 %; Mean Corpuscular HGB Conc 32.8 g/dL (31.6-35.5); Mean Corpuscular Hemoglobin 29.4 pg (28.0-33.3); Mean Corpuscular Volume 89.6 fL (83.0-100.0); Mean Platelet Volume 11.2 fL (9.4-12.4); Monocytes % 8.7 %; Neutrophils # 8.2 K/mcL (1.6-8.9); Platelet Count 176 K/mcL (140-400); Red Blood Count 3.95 M/mcL (3.82-4.97); Red Cell Distribution Width 14.6 % (11.5-14.5); Segmented Neutrophils % 74.3 %
[2018-01-30 05:29] LABS: BUN/Creatinine Ratio 25 (6-26); Blood Urea Nitrogen 20 mg/dL (8-23); Calcium 8.3 mg/dL (8.6-10.3); Carbon Dioxide 18 mEq/L (23-29); Chloride 108 mEq/L (98-107); Glucose 161 mg/dL (70-105); Osmolality,Calculated 286 (280-300); Phosphorous 3.5 mg/dL (2.7-4.5); Potassium 3.5 mEq/L (3.5-5.1); Sodium 135 mEq/L (136-145); eGFR For African Americans > 60 (> 60); eGFR For Non-African Americans > 60 (> 60)
[2018-01-30 09:05] LABS: Estimated Average Glucose 105 mg/dl; Hemoglobin A1C 5.3 %
[2018-01-30] MEDS: Insulin LISPRO 300 UNITS/3 ML VIAL SQ SCH ×3 (09:18→17:07)
[2018-01-30] MEDS: Thiamine (B-1) 100 MG TABLET PO SCH (09:23)
[2018-01-30] MEDS: Magnesium Oxide 400 MG TABLET PO SCH ×2 (09:23→22:19)
[2018-01-30] MEDS: Aspirin Enteric Coated 81 MG Tablet PO SCH (09:23)
--- NOTE | 2018-01-30 10:05 | Electrocardiograph Report ---
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
[2018-01-30] MEDS ORDERED: Polyethylene Glycol 3350 255 GM POWDER PO ONE (12:02)
--- NOTE | 2018-01-30 12:09 | Internal Med Progress Note ---
Date of Encounter: 01/30/18 Time of Encounter: 12:06 - Assessment and plan (1) Recurrent UTI (urinary tract infection) Current Visit: Yes Status: Acute (2) Generalized weakness Current Visit: No Status: Chronic (3) Constipation Current Visit: Yes Status: Acute Qualifiers: Constipation type: unspecified constipation type Qualified Code(s): K59.00 - Constipation, unspecified - Time Spent With Patient Plan Patient had chronic constipation with the possible stool impaction and leaking of stool around stool impaction causing false diarrhea which causing recurrent urinary tract infection with Escherichia coli, , patient had poor response to laxative given last night Enema , senna , discussed with clinical pharmacist with the patient's severe constipation will add MiraLAX bowel prep ,with her severe constipation , Patient need to have very close follow-up regarding her bowel regimen. With her significant constipation causing recurrent urinary tract infection in addition to incontinence itself can cause recurrent urinary tract infection. Close monitoring of electrolyte, replace potassium, check CBC BMP tomorrow morning, continue antibiotic for her possible UTI awaiting final result of culture, we will consult ID for possible placement on prophylactic antibiotic on discharge. 25 - 35 minutes - Subjective Interval history: Patient is complaining of diffuse abdominal pain, she had only small bowel movement, no result with her enema, patient denies any nausea or vomiting. - Constitutional Vitals: Temp Pulse Resp BP Pulse Ox 98.2 F 93 18 107/71 93 01/30/18 10:35 01/30/18 10:35 01/30/18 10:35 01/30/18 10:35 01/30/18 10:35 General appearance: Present: mild distress, A&O X 3 - Head Head exam: Present: atraumatic, normocephalic - Neck Neck exam general surgery: Present: supple, trachea midline. Absent: lymphadenopathy - Respiratory Respiratory exam: Present: CTAB. Absent: accessory muscle use, rales, rhonchi, wheezes - Cardiovascular Cardiovascular exam: Present: RRR, +S1, +S2. Absent: diastolic murmur, gallop, rubs, systolic murmur - GI/Abdominal GI/Abdominal exam: Present: normal bowel sounds, soft, tenderness (Diffuse abdominal tenderness, patient is morbidly obese), no peritoneal signs. Absent: distended - Extremities Exam Extremities exam: Present: warm, radial pulses palpable and symmetrical. Absent : cyanotic, pedal edema Internal Medicine: Result - Labs CBC & Chem 7: 01/30/18 04:44 01/30/18 04:44 Labs: Short CBC 01/30/18 Range/Units 04:44 WBC 11.0 (4.3-11.1) K/mcL Hgb 11.6 (11.5-15.4) g/dL Hct 35.4 (35.3-44.9) % Plt Count 176 (140-400) K/mcL Neutrophils # 8.2 (1.6-8.9) K/mcL BMP 01/30/18 04:44 Sodium 135 L Potassium 3.5 Chloride 108 H Carbon Dioxide 18 L BUN 20 Creatinine 0.79 Glucose 161 H Calcium 8.3 L Consult Discharge Plan - Plan Referrals: Nithin Hernandez [Primary Care Provider] -
--- NOTE | 2018-01-30 18:23 | Electrocardiograph Report ---
[place] [address] Test Date: 2018-01-29 Pat Name: Aixa Golden Department: 112 Room: 2A42 Gender: F [employer] Operator: : 1950 Requested By: Fazal Welch Order Number: [id number] Reading MD: Adelaida Winters Measurements Intervals [place] Rate: 94 P: 46 [place]: 171 QRS: -18 QRSD: 85 T: 62 QT: 386 QTc: 438 Interpretive Statements SINUS RHYTHM WITH FREQUENT SUPRAVENTRICULAR PREMATURE COMPLEXES LOW QRS VOLTAGE IN PRECORDIAL LEADS NONSPECIFIC T-WAVE ABNORMALITY ABNORMAL RHYTHM ECG Electronically Signed On 01-30-2018 18:21:32 EDT by Adelaida Winters
[2018-01-30] MEDS ORDERED: *HR* Metoprolol 5 MG/5 ML VIAL IVP ONE ×2 (21:33→21:35)
[2018-01-30] MEDS ORDERED: 0.9 % Sodium Chloride 500 ML IVC ONE (21:54)
--- NOTE | 2018-01-30 22:50 | Event Note ---
Date of Encounter: 01/30/18 Time of Encounter: 21:30 Called to see patient for A Fib/RVR. HR was in the 170's, BP 100/70's. I ordered Lopressor IV one time 5 mg. I also ordered 500 ml fluid bolus and STAT labs. HR has slowed and I'm awaiting lab results.
[2018-01-30 23:00] LABS: BUN/Creatinine Ratio 29 (6-26); Blood Urea Nitrogen 21 mg/dL (8-23); Calcium 8.5 mg/dL (8.6-10.3); Carbon Dioxide 18 mEq/L (23-29); Chloride 107 mEq/L (98-107); Glucose 166 mg/dL (70-105); Magnesium 1.9 mg/dL (1.6-2.6); Osmolality,Calculated 287 (280-300); Potassium 3.5 mEq/L (3.5-5.1); Sodium 135 mEq/L (136-145); eGFR For African Americans > 60 (> 60); eGFR For Non-African Americans > 60 (> 60)
[2018-01-31] MEDS ORDERED: Potassium Chloride 40 MEQ, Lidocaine 1% 2 ML in D5% in Water 500 ML IVPB ONE (01:09)
[2018-01-31] MEDS: Ertapenem 1,000 MG in 0.9 % Sodium Chloride Mini Bag 100 ML IVPB SCH (01:40)
[2018-01-31] MEDS: *HR* Heparin 5,000 UNIT/ML VIAL SQ SCH ×2 (06:32→17:37)
[2018-01-31 07:22] LABS: Basophils % 0.3 %; Eosinophils # 0.4 K/mcL (0.0-0.6); Eosinophils % 5.5 %; Hematocrit 31.8 % (35.3-44.9); Hemoglobin 10.7 g/dL (11.5-15.4); Immature Granulocytes % 0.3 % (0-4); Lymphocytes # 2.5 K/mcL (0.6-4.6); Lymphocytes % 31.6 %; Mean Corpuscular HGB Conc 33.6 g/dL (31.6-35.5); Mean Corpuscular Hemoglobin 30.1 pg (28.0-33.3); Mean Corpuscular Volume 89.3 fL (83.0-100.0); Mean Platelet Volume 11.9 fL (9.4-12.4); Monocytes # 0.8 K/mcL (0.0-1.3); Neutrophils # 4.1 K/mcL (1.6-8.9); Platelet Count 166 K/mcL (140-400); Red Blood Count 3.56 M/mcL (3.82-4.97); Red Cell Distribution Width 14.5 % (11.5-14.5); Segmented Neutrophils % 52.3 %
[2018-01-31 07:36] LABS: BUN/Creatinine Ratio 32 (6-26); Blood Urea Nitrogen 20 mg/dL (8-23); Carbon Dioxide 17 mEq/L (23-29); Chloride 109 mEq/L (98-107); Glucose 137 mg/dL (70-105); Osmolality,Calculated 285 (280-300); Phosphorous 2.4 mg/dL (2.7-4.5); Potassium 3.7 mEq/L (3.5-5.1); Sodium 135 mEq/L (136-145); eGFR For African Americans > 60 (> 60); eGFR For Non-African Americans > 60 (> 60)
[2018-01-31] MEDS: Metoclopramide 10 MG in 0.9 % Sodium Chloride 50 ML IVPB SCH ×4 (09:01→20:54)
[2018-01-31] MEDS: Magnesium Oxide 400 MG TABLET PO SCH ×2 (09:17→20:56)
[2018-01-31] MEDS: Thiamine (B-1) 100 MG TABLET PO SCH (09:17)
[2018-01-31] MEDS: Aspirin Enteric Coated 81 MG Tablet PO SCH (09:17)
[2018-01-31] MEDS: Insulin LISPRO 300 UNITS/3 ML VIAL SQ SCH ×3 (09:18→16:44)
--- NOTE | 2018-01-31 17:27 | Electrocardiograph Report ---
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
[2018-01-31] MEDS: *HR* HYDROcodone/Acet 5/325 mg TABLET PO PRN (17:37)
--- NOTE | 2018-01-31 20:55 | Internal Med Progress Note ---
Date of Encounter: 01/31/18 Time of Encounter: 20:55 - Assessment and plan (1) UTI (urinary tract infection) Current Visit: Yes Status: Acute Qualifiers: Urinary tract infection type: site unspecified Hematuria presence: with hematuria Qualified Code(s): N39.0 - Urinary tract infection, site not specified; R31.9 - Hematuria, unspecified (2) Chronic diastolic (congestive) heart failure Current Visit: No Status: Chronic (3) Acute hypokalemia Current Visit: Yes Status: Acute - Time Spent With Patient Total time spent is greater than 50% in coordination of care (as documented) at patient's floor/unit and/or counseling patient: - Constitutional Vitals: Temp Pulse Resp BP Pulse Ox 98.2 F 83 15 106/60 94 01/31/18 18:31 01/31/18 18:31 01/31/18 18:31 01/31/18 18:31 01/31/18 18:31 General appearance: Present: mild distress, A&O X 3 Internal Medicine: Result - Labs CBC & Chem 7: 01/31/18 06:20 01/31/18 06:20 Labs: Short CBC 01/31/18 Range/Units 06:20 WBC 7.8 (4.3-11.1) K/mcL Hgb 10.7 L (11.5-15.4) g/dL Hct 31.8 L (35.3-44.9) % Plt Count 166 (140-400) K/mcL Neutrophils # 4.1 (1.6-8.9) K/mcL BMP 01/30/18 01/31/18 21:50 06:20 Sodium 135 L 135 L Potassium 3.5 3.7 Chloride 107 109 H Carbon Dioxide 18 L 17 L BUN 21 20 Creatinine 0.72 0.62 Glucose 166 H 137 H Calcium 8.5 L 8.0 L Consult Discharge Plan - Plan Referrals: Nithin Hernandez [Primary Care Provider] -
[2018-02-01] MEDS: Ertapenem 1,000 MG in 0.9 % Sodium Chloride Mini Bag 100 ML IVPB SCH (00:51)
[2018-02-01] MEDS: Metoclopramide 10 MG in 0.9 % Sodium Chloride 50 ML IVPB SCH (05:24)
[2018-02-01] MEDS: *HR* Heparin 5,000 UNIT/ML VIAL SQ SCH ×2 (05:26→16:57)
[2018-02-01] MEDS: Magnesium Oxide 400 MG TABLET PO SCH ×2 (09:42→20:49)
[2018-02-01] MEDS: Thiamine (B-1) 100 MG TABLET PO SCH (09:42)
[2018-02-01] MEDS: Aspirin Enteric Coated 81 MG Tablet PO SCH (09:42)
--- NOTE | 2018-02-01 23:56 | Internal Med Progress Note ---
Date of Encounter: 02/01/18 Time of Encounter: 23:55 - Assessment and plan (1) UTI (urinary tract infection) Current Visit: Yes Status: Acute Qualifiers: Urinary tract infection type: site unspecified Hematuria presence: with hematuria Qualified Code(s): N39.0 - Urinary tract infection, site not specified; R31.9 - Hematuria, unspecified (2) Chronic diastolic (congestive) heart failure Current Visit: No Status: Chronic (3) Acute hypokalemia Current Visit: Yes Status: Acute - Time Spent With Patient Total time spent is greater than 50% in coordination of care (as documented) at patient's floor/unit and/or counseling patient: - Constitutional Vitals: Temp Pulse Resp BP Pulse Ox 98.3 F 84 18 116/74 97 02/01/18 18:43 02/01/18 18:43 02/01/18 18:43 02/01/18 18:43 02/01/18 18:43 General appearance: Present: mild distress, A&O X 3 Internal Medicine: Result - Labs CBC & Chem 7: 01/31/18 06:20 01/31/18 06:20 Consult Discharge Plan - Plan Referrals: Nithin Hernandez [Primary Care Provider] -
[2018-02-02] MEDS: Ertapenem 1,000 MG in 0.9 % Sodium Chloride Mini Bag 100 ML IVPB SCH (00:34)
[2018-02-02] MEDS: *HR* Heparin 5,000 UNIT/ML VIAL SQ SCH (05:27)
[2018-02-02 07:16] VITALS: BP 110/59
[2018-02-02] MEDS: Insulin LISPRO 300 UNITS/3 ML VIAL SQ SCH (07:48)
[2018-02-02] MEDS: Aspirin Enteric Coated 81 MG Tablet PO SCH (08:00)
[2018-02-02] MEDS: Magnesium Oxide 400 MG TABLET PO SCH (08:00)
[2018-02-02] MEDS: Thiamine (B-1) 100 MG TABLET PO SCH (08:00)
--- NOTE | 2018-02-02 13:51 | Discharge Summary ---
- NOTES TO OUTPATIENT PROVIDER Notes to Outpatient Provider: She was admitted with symptoms/signs of recurrent urinary tract infection. She was treated with IV Invanz. I am switching her to oral Omnicef; urine culture is growing Citrobacter dreundii. I talked to Dr. Bee, her urologist. He will be calling this patient after discharge to arrange for cystoscopy/retrograde pyelography. Date of Encounter: 02/02/18 Time of Encounter: 13:48 - Discharge Diagnosis (1) UTI (urinary tract infection) Status: Acute Qualifiers: Urinary tract infection type: site unspecified Hematuria presence: with hematuria Qualified Code(s): N39.0 - Urinary tract infection, site not specified; R31.9 - Hematuria, unspecified (2) Chronic diastolic (congestive) heart failure Status: Chronic (3) Acute hypokalemia Status: Acute (4) Debility Status: Acute Hospital course: Ms. Golden is a 67 year old female Discharge discussed with: patient, nurse, case management - Time Spent with Patient Total time spent providing and/or coordinating discharge services: Greater than 30 minutes (40 minutes) - Discharge Medications Prescriptions: Cefdinir [Omnicef] 300 mg PO BID #20 capsule Magnesium Oxide [Mag-Ox] 400 mg PO BID #60 tablet Potassium Chloride 20 meq PO BID #60 tab.er.prt Home Medications: Furosemide [Lasix] 40 mg PO DAILY PRN 12/05/17 [History] Aspirin [Lo-Dose Aspirin EC] 81 mg PO DAILY 12/12/17 [History] Promethazine [Phenergan] 25 mg PO DAILY PRN 01/30/18 [History] Cefdinir [Omnicef] 300 mg PO BID #20 capsule 02/02/18 [Rx] Magnesium Oxide [Mag-Ox] 400 mg PO BID #60 tablet 02/02/18 [Rx] Potassium Chloride 20 meq PO BID #60 tab.er.prt 02/02/18 [Rx] Allergies/Adverse Reactions: 3 Allergy/AdvReac Type Severity Reaction Status Date / Time shellfish derived Allergy Severe Anaphylaxis Verified 01/30/18 09:11 levofloxacin [From Levaquin] Allergy Hives Verified 01/30/18 09:11 Penicillins Allergy Blister Verified 01/30/18 09:11 prednisone Allergy See Verified 01/30/18 09:11 Comments Sulfa (Sulfonamide Allergy Hives Verified 01/30/18 09:11 Antibiotics) egg AdvReac Severe Throat Verified 01/30/18 09:11 swelling nitrofurantoin AdvReac Severe Bruising Verified 01/30/18 09:11 [From Macrobid] on arms Date of admission: 01/29/18 00:38 Primary care physician: Nithin Hernandez Consults: 02/01/18 17:44 Consult to Physical Therapy [CONS] Routine Comment: Evaluate, develop and implement POC Reason for Consult: DEBILITY; ADMITTED WITH UTI. MORBID OBESITY. Does patient have active BEDREST order?: No Is patient medically & hemodynamically stable?: Yes Patient assessed for mobility or mobilized this visit?: No - Constitutional Vitals: Temp Pulse Resp BP Pulse Ox 98.2 F 86 14 110/59 96 02/02/18 07:13 02/02/18 07:13 02/02/18 07:13 02/02/18 07:13 02/02/18 07:13 General appearance: Present: mild distress, A&O X 3 - Respiratory Respiratory exam: Present: CTAB. Absent: accessory muscle use, rales, rhonchi, wheezes - Cardiovascular Cardiovascular exam: Present: RRR, +S1, +S2. Absent: diastolic murmur, gallop, rubs, systolic murmur - GI/Abdominal GI/Abdominal exam: Present: normal bowel sounds, soft, no peritoneal signs. Absent: distended, tenderness - Patient Status Disposition: Home Health Service Condition: Fair Functional capacity at discharge: uses cane/walker Overall status at discharge: patient is progressing back to baseline - Discharge Instructions Follow Up With: Nithin Hernandez [Primary Care Provider] - - Diet and Activity Activity: ambulate only with your walker - VTE Deep Vein Thrombosis/Pulmonary Embolism Present on Admission: No
--- NOTE | 2018-02-02 14:04 | Physician Discharge Referral ---
Home Health/Hosp Referral Info Transfer to: Home Health Attending Provider: Chago CANTU Provider in Charge Post Discharge: PCP - Diagnosis (1) UTI (urinary tract infection) Status: Acute (2) Chronic diastolic (congestive) heart failure Status: Chronic (3) Acute hypokalemia Status: Acute (4) Debility Status: Acute - Respiratory Orders None Smoking Cessation: Smoking cessation has been advised. For more information, call the [place] Tobacco Quit Line at 0-624-PROI-NOW. - Diet/Nutrition Diet/Nutrition Orders: Regular - Activity Activity Orders: Up ad james, Chair, Walker - Services Needed Following services are medically necessary services: Nursing, Physical Therapy - Transfer Medications Prescriptions: Cefdinir [Omnicef] 300 mg PO BID #20 capsule Magnesium Oxide [Mag-Ox] 400 mg PO BID #60 tablet Potassium Chloride 20 meq PO BID #60 tab.er.prt Home Medications: Furosemide [Lasix] 40 mg PO DAILY PRN 12/05/17 [History] Aspirin [Lo-Dose Aspirin EC] 81 mg PO DAILY 12/12/17 [History] Promethazine [Phenergan] 25 mg PO DAILY PRN 01/30/18 [History] Cefdinir [Omnicef] 300 mg PO BID #20 capsule 02/02/18 [Rx] Magnesium Oxide [Mag-Ox] 400 mg PO BID #60 tablet 02/02/18 [Rx] Potassium Chloride 20 meq PO BID #60 tab.er.prt 02/02/18 [Rx] Allergies/Adverse Reactions: 3 Allergy/AdvReac Type Severity Reaction Status Date / Time shellfish derived Allergy Severe Anaphylaxis Verified 01/30/18 09:11 levofloxacin [From Levaquin] Allergy Hives Verified 01/30/18 09:11 Penicillins Allergy Blister Verified 01/30/18 09:11 prednisone Allergy See Verified 01/30/18 09:11 Comments Sulfa (Sulfonamide Allergy Hives Verified 01/30/18 09:11 Antibiotics) egg AdvReac Severe Throat Verified 01/30/18 09:11 swelling nitrofurantoin AdvReac Severe Bruising Verified 01/30/18 09:11 [From Macrobid] on arms Certification: Further, I certify that my clinical findings support that this patient is homebound (i.e. absences from home require considerable and taxing effort and are for medical reasons or anglican services or infrequently or short duration when for other reasons) because: Homebound Reason: Patient requires assistance of a person or device to safely leave home Attestation: My signature below is to certify that this patient is under my care and that I, or nurse practitioner, or a physician's executive assistant to president working with me, has a face-to -face encounter with this patient.
== END 2018-02-02 15:02 | disposition home health service (06) | DRG 690 ==
LOC: 2ANU 17:01 → EMEROO 17:01 → 2ANU 23:40 → SUATTDRO 01-29 00:38
PROVIDERS: ADMIT Pediatrics; ATTEND Internal Medicine

== ENCOUNTER 2018-04-26 22:16 | Inpatient (IN) ==
--- NOTE | 2018-04-26 22:25 | Emergency Department Note ---
Disposition Clinical Impression: Urinary tract infection Qualifiers: Urinary tract infection type: site unspecified Hematuria presence: without hematuria Qualified Code(s): N39.0 - Urinary tract infection, site not specified Cellulitis Qualifiers: Site of cellulitis: extremity Site of cellulitis of extremity: lower extremity Laterality: unspecified laterality Qualified Code(s): L03.119 - Cellulitis of unspecified part of limb Sacral decubitus ulcer Qualifiers: Pressure injury stage: unspecified pressure injury stage Qualified Code(s): L89.159 - Pressure ulcer of sacral region, unspecified stage Disposition: Admitted As Inpatient Condition: Good Referrals: Nithin Hernandez [Primary Care Provider] - Time of Disposition: 00:05 Extremity Problem HPI - General Stated complaint: leg swelling Time Seen by Provider: 04/26/18 22:24 Source: patient, EMS Mode of arrival: EMS Limitations: no limitations Nursing Notes Reviewed: Yes Vital Signs Reviewed: Yes - History of Present Illness HPI Narrative: 68-year-old female history of congestive heart failure presents emergency department via EMS for bilateral leg swelling. Patient presents over the past 2 days she is noticed increased swelling as well as pain. The daughter who is not present told EMS that it was also warm to the touch. Patient denies any fever chills at home. She denies any chest pain or shortness of breath. She recently had procedure for kidney stone removal which she describes as lithotripsy. She denies any abdominal pain. She admits to not being as multiple. She is aware of ulcers to her bottom. He lives at home with her daughter and feel safe. Pt Subjective Complaint: extremity pain, extremity swelling - Related Data Home Medications Medication Instructions Recorded Confirmed Furosemide [Lasix] 40 mg PO DAILY PRN 12/05/17 01/30/18 Aspirin [Lo-Dose Aspirin EC] 81 mg PO DAILY 12/12/17 01/30/18 Promethazine [Phenergan] 25 mg PO DAILY PRN 01/30/18 01/30/18 Previous Rx's Medication Instructions Recorded Cefdinir [Omnicef] 300 mg PO BID #20 capsule 02/02/18 Magnesium Oxide [Mag-Ox] 400 mg PO BID #60 tablet 02/02/18 Potassium Chloride 20 meq PO BID #60 tab.er.prt 02/02/18 Allergies Allergy/AdvReac Type Severity Reaction Status Date / Time shellfish derived Allergy Severe Anaphylaxis Verified 01/30/18 09:11 levofloxacin [From Levaquin] Allergy Hives Verified 01/30/18 09:11 Penicillins Allergy Blister Verified 01/30/18 09:11 prednisone Allergy See Verified 01/30/18 09:11 Comments Sulfa (Sulfonamide Allergy Hives Verified 01/30/18 09:11 Antibiotics) egg AdvReac Severe Throat Verified 01/30/18 09:11 swelling nitrofurantoin AdvReac Severe Bruising Verified 01/30/18 09:11 [From Macrobid] on arms All systems ED: reviewed and negative except as stated. Review of Systems: As Per HPI Constitutional: Denies: fever, chills ENT ED: Denies: congestion Cardiovascular: Denies: chest pain Respiratory: Denies: dyspnea Gastrointestinal: Denies: abdominal pain, nausea, vomiting Genitourinary: Reports: frequency. Denies: dysuria Integumentary: Reports: abrasion, lesions. Denies: rash Neurological: Denies: headache, weakness Past Medical History - Past Medical History Attestation: Yes The following information was validated with the patient. Source: patient, old records reviewed Medical history: Reports: non-contributory, asthma, atrial fibrillation, CHF, CVA, kidney stones Surgical history: Reports: angioplasty/stent, cholecystectomy, hysterectomy Psychiatric history: Reports: anxiety, depression, panic disorder - Social History Smoking Status: Never smoker Smokeless Tobacco Status: No Alcohol use: Reports: none Drug use: Reports: none Physical Exam - General Limitations: no limitations General appearance: alert, in no apparent distress, obese - Head Head exam: atraumatic, normocephalic, normal inspection - Eye Eye exam: Present: normal appearance, PERRL, EOMI - ENT ENT exam: normal oropharynx, mucous membranes moist, other (Lips are very chapped and dry) - Neck Neck exam: Present: normal inspection, full ROM, trachea midline - Chest Chest inspection: Present: normal inspection, symmetric chest wall rise - Respiratory Respiratory exam: Present: normal lung sounds bilaterally. Absent: respiratory distress, wheezes - Cardiovascular Cardiovascular exam: Present: regular rate, normal rhythm, normal heart sounds - Abdominal Exam Abdominal exam: Present: soft (Obese), Non-Tender. Absent: tenderness, distention, guarding, rebound, rigidity - Extremities Exam Extremities exam: Present: normal inspection, full ROM, pedal edema ( Significant swelling +3), other (Erythema around the left anterior smith and right dorsal foot). Absent: tenderness, calf tenderness - Back Exam Back exam: Present: full ROM, other (Sacral stage I decubitus ulcer 1 approximately 9 cm x 5 cm on the right and one of similar size to the left). Absent: tenderness - Neurological Exam Neurological exam: Present: alert, oriented X3 - Psychiatric Psychiatric exam: Present: normal affect, normal mood - Skin Skin exam: Present: erythema - Expanded Skin Exam Type of lesion: Present: other (Pressure ulcer to sacrum) Distribution: LLE (Erythema to the anterior election), RLE (Erythema to the right door some of the foot) Description: Present: erythematous, swelling Course Course Narrative: Patient presents with bilateral leg swelling and warmth. She denies any chest pain or shortness of breath. Concerning for possible CHF exacerbation as well as infectious etiology such as cellulitis. Will obtain blood work including the chest x-ray. On evaluation she had sacral decubitus ulcer. Will place a Sanchez catheter in obtain a urinalysis. - Reevaluation(s) Reevaluation #1: Urinalysis is consistent with infection. A Sanchez catheter was place a given the presence of a decubitus ulcer. Her lower extremities are consistent with cellulitis. She would benefit admission and further management of these ailments. Patient is in agreement with this plan. - Consultations Consultation #1: Spoke with on-call hospitalist roxana Horowitz to admit for cellulitis in lower extremity, UTI, and decubitus ulcer. No further orders at this time Time: 00:05 Vital Signs Temperature 99.3 F 04/26/18 22:44 Pulse Rate 78 04/26/18 22:44 Respiratory Rate 18 04/26/18 22:44 Blood Pressure 119/51 04/26/18 22:44 O2 Sat by Pulse Oximetry 100 04/26/18 22:44 Temperature 99.3 F 04/26/18 22:44 Pulse Rate 78 04/27/18 00:00 Respiratory Rate 18 04/26/18 22:44 Blood Pressure 100/51 04/27/18 00:00 O2 Sat by Pulse Oximetry 100 04/27/18 00:00 Oxygen Delivery Oxygen Delivery Room Air Extremity Problem, Nontraumati - MDM Narrative Medical decision making narrative: Patient was discussed with my attending physician who agrees with ED management and final disposition. They independently evaluated the patient. Please refer to their attestation to this encounter for additional information. This note was generated by [employer] voice recognition software and as a result grammatical or spelling errors may occur using this program. - Medical Records Medical records reviewed: Yes I reviewed the patient's medical records. - Lab Data Lab results reviewed: Yes I reviewed the patient's lab results. Result diagrams: 04/26/18 22:25 04/26/18 22:25 Lab Results 04/26/18 04/26/18 04/26/18 Range/Units 22:25 22:25 22:25 WBC 7.7 (4.3-11.1) K/mcL RBC 3.66 L (3.82-4.97) M/mcL Hgb 10.3 L (11.5-15.4) g/dL Hct 31.9 L (35.3-44.9) % MCV 87.2 (83.0-100.0) fL MCH 28.1 (28.0-33.3) pg MCHC 32.3 (31.6-35.5) g/dL RDW 14.8 H (11.5-14.5) % Plt Count 161 (140-400) K/mcL MPV 10.6 (9.4-12.4) fL Immature Gran % 0.3 (0-4) % Seg Neutrophils % 64.2 % Lymphocytes % 23.4 % Monocytes % 6.1 % Eosinophils % 5.6 % Basophils % 0.4 % Neutrophils # 5.0 (1.6-8.9) K/mcL Lymphocytes # 1.8 (0.6-4.6) K/mcL Monocytes # 0.5 (0.0-1.3) K/mcL Eosinophils # 0.4 (0.0-0.6) K/mcL Basophils # 0.0 (0.0-0.2) K/mcL Sodium 137 (136-145) mEq/L Potassium 3.5 (3.5-5.1) mEq/L Chloride 104 (98-107) mEq/L Carbon Dioxide 26 (23-29) mEq/L BUN 13 (8-23) mg/dL Creatinine 0.74 (0.60-1.20) mg/dL Est GFR ( Amer) > 60 (> 60) Est GFR (Non-Af Amer) > 60 (> 60) BUN/Creatinine Ratio 18 (6-26) Glucose 132 H (70-105) mg/dL Calculated Osmolality 286 (280-300) Calcium 8.6 (8.6-10.3) mg/dL B-Natriuretic Peptide 185 H (Less than 100) pg/mL Urine Color (Yellow) Urine Clarity (Clear) Urine pH (5.0-8.0) pH Units Ur Specific [place] (1.010-1.025) Urine Protein (Neg-Trace) mg/dL Urine Glucose (UA) (Normal) mg/dL Urine Ketones (Negative) mg/dL Urine Blood (Negative) Urine Nitrite (Negative) Urine Bilirubin (Negative) Urine Urobilinogen (Normal) mg/dL Ur Leukocyte Esterase (Negative) Urine Microscopic RBC (0-3) per hpf Urine Microscopic WBC (0-3) per hpf Ur Squamous Epith Cells (None-Few) per lpf Urine Bacteria (None-Few) per hpf Hyaline Casts (None-Few) per lpf 04/26/18 Range/Units 22:52 WBC (4.3-11.1) K/mcL RBC (3.82-4.97) M/mcL Hgb (11.5-15.4) g/dL Hct (35.3-44.9) % MCV (83.0-100.0) fL MCH (28.0-33.3) pg MCHC (31.6-35.5) g/dL RDW (11.5-14.5) % Plt Count (140-400) K/mcL MPV (9.4-12.4) fL Immature Gran % (0-4) % Seg Neutrophils % % Lymphocytes % % Monocytes % % Eosinophils % % Basophils % % Neutrophils # (1.6-8.9) K/mcL Lymphocytes # (0.6-4.6) K/mcL Monocytes # (0.0-1.3) K/mcL Eosinophils # (0.0-0.6) K/mcL Basophils # (0.0-0.2) K/mcL Sodium (136-145) mEq/L Potassium (3.5-5.1) mEq/L Chloride (98-107) mEq/L Carbon Dioxide (23-29) mEq/L BUN (8-23) mg/dL Creatinine (0.60-1.20) mg/dL Est GFR ( Amer) (> 60) Est GFR (Non-Af Amer) (> 60) BUN/Creatinine Ratio (6-26) Glucose (70-105) mg/dL Calculated Osmolality (280-300) Calcium (8.6-10.3) mg/dL B-Natriuretic Peptide (Less than 100) pg/mL Urine Color Yellow (Yellow) Urine Clarity Cloudy A (Clear) Urine pH 6.0 (5.0-8.0) pH Units Ur Specific [place] 1.009 L (1.010-1.025) Urine Protein Negative (Neg-Trace) mg/dL Urine Glucose (UA) Normal (Normal) mg/dL Urine Ketones Negative (Negative) mg/dL Urine Blood Small H (Negative) Urine Nitrite Positive A (Negative) Urine Bilirubin Negative (Negative) Urine Urobilinogen Normal (Normal) mg/dL Ur Leukocyte Esterase Large H (Negative) Urine Microscopic RBC 3-5 H (0-3) per hpf Urine Microscopic WBC TNTC H (0-3) per hpf Ur Squamous Epith Cells Moderate H (None-Few) per lpf Urine Bacteria Moderate H (None-Few) per hpf Hyaline Casts None Seen (None-Few) per lpf - Radiology Data Radiology results reviewed: Yes I reviewed the patient's radiology results. Chest X-Ray 04/26/18 22:25 IMPRESSION: No acute findings. D/ / Vineet Cyr / Vineet Cyr Interpreting Provider: Vineet Cyr - EKG Data EKG attestation: Yes I reviewed and interpreted this EKG. EKG results narrative: EKG performed 2251 normal sinus rhythm 81 beats per minute, premature atrial complex, good R wave progression, no ST elevation or depression, no acute ischemic changes.
[2018-04-26 23:04] LABS: Bilirubin,Urine Negative (Negative); Blood,Urine Small (Negative); Clarity,Urine Cloudy (Clear); Color,Urine Yellow (Yellow); Glucose,Urine (UA) Normal (Normal); Ketones,Urine Negative (Negative); Leukocyte Esterase,Urine Large (Negative); Nitrite,Urine Positive (Negative); Protein,Urine Negative (Neg-Trace); Specific Gravity,Urine 1.009 (1.010-1.025); Urobilinogen,Urine Normal (Normal)
[2018-04-26 23:09] LABS: Bacteria,Urine Moderate per hpf (None-Few); Hyaline Casts,Urine None Seen per lpf (None-Few); Squamous Epithelial Cell,Urine Moderate per lpf (None-Few); WBC,Urine TNTC per hpf (0-3)
[2018-04-26 23:23] LABS: Basophils % 0.4 %; Eosinophils # 0.4 K/mcL (0.0-0.6); Eosinophils % 5.6 %; Hematocrit 31.9 % (35.3-44.9); Hemoglobin 10.3 g/dL (11.5-15.4); Immature Granulocytes % 0.3 % (0-4); Lymphocytes # 1.8 K/mcL (0.6-4.6); Lymphocytes % 23.4 %; Mean Corpuscular HGB Conc 32.3 g/dL (31.6-35.5); Mean Corpuscular Hemoglobin 28.1 pg (28.0-33.3); Mean Corpuscular Volume 87.2 fL (83.0-100.0); Mean Platelet Volume 10.6 fL (9.4-12.4); Monocytes # 0.5 K/mcL (0.0-1.3); Monocytes % 6.1 %; Platelet Count 161 K/mcL (140-400); Red Blood Count 3.66 M/mcL (3.82-4.97); Red Cell Distribution Width 14.8 % (11.5-14.5); Segmented Neutrophils % 64.2 %
[2018-04-26 23:42] LABS: BUN/Creatinine Ratio 18 (6-26); Blood Urea Nitrogen 13 mg/dL (8-23); Calcium 8.6 mg/dL (8.6-10.3); Carbon Dioxide 26 mEq/L (23-29); Chloride 104 mEq/L (98-107); Glucose 132 mg/dL (70-105); Osmolality,Calculated 286 (280-300); Potassium 3.5 mEq/L (3.5-5.1); Sodium 137 mEq/L (136-145); eGFR For Non-African Americans > 60 (> 60)
[2018-04-27] MEDS ORDERED: cefTRIAXone 1,000 MG in Water for inj. (sterile) 20 ML 10 ML IVP ONE (00:02)
--- NOTE | 2018-04-27 01:19 | Emergency Department Note ---
Disposition Clinical Impression: Urinary tract infection Qualifiers: Urinary tract infection type: site unspecified Hematuria presence: without hematuria Qualified Code(s): N39.0 - Urinary tract infection, site not specified Cellulitis Qualifiers: Site of cellulitis: extremity Site of cellulitis of extremity: lower extremity Laterality: unspecified laterality Qualified Code(s): L03.119 - Cellulitis of unspecified part of limb Sacral decubitus ulcer Qualifiers: Pressure injury stage: unspecified pressure injury stage Qualified Code(s): L89.159 - Pressure ulcer of sacral region, unspecified stage Disposition: Admitted As Inpatient Condition: Good Referrals: Nithin Hernandez [Primary Care Provider] - General Adult HPI - General Chief complaint: ED Shortness of Breath/Dyspnea Stated complaint: leg swelling Time Seen by Provider: 04/26/18 22:24 Source: patient, EMS Mode of arrival: EMS Limitations: no limitations Nursing Notes Reviewed: Yes Vital Signs Reviewed: Yes - History of Present Illness Pain Scale: 1 - Related Data Home Medications Medication Instructions Recorded Confirmed Furosemide [Lasix] 40 mg PO DAILY PRN 12/05/17 01/30/18 Aspirin [Lo-Dose Aspirin EC] 81 mg PO DAILY 12/12/17 01/30/18 Promethazine [Phenergan] 25 mg PO DAILY PRN 01/30/18 01/30/18 Previous Rx's Medication Instructions Recorded Cefdinir [Omnicef] 300 mg PO BID #20 capsule 02/02/18 Magnesium Oxide [Mag-Ox] 400 mg PO BID #60 tablet 02/02/18 Potassium Chloride 20 meq PO BID #60 tab.er.prt 02/02/18 Allergies Allergy/AdvReac Type Severity Reaction Status Date / Time shellfish derived Allergy Severe Anaphylaxis Verified 01/30/18 09:11 levofloxacin [From Levaquin] Allergy Hives Verified 01/30/18 09:11 Penicillins Allergy Blister Verified 01/30/18 09:11 prednisone Allergy See Verified 01/30/18 09:11 Comments Sulfa (Sulfonamide Allergy Hives Verified 01/30/18 09:11 Antibiotics) egg AdvReac Severe Throat Verified 01/30/18 09:11 swelling nitrofurantoin AdvReac Severe Bruising Verified 01/30/18 09:11 [From Macrobid] on arms Constitutional: Denies: fever, chills ENT ED: Denies: congestion Cardiovascular: Denies: chest pain Respiratory: Denies: dyspnea Gastrointestinal: Denies: abdominal pain, nausea, vomiting Genitourinary: Reports: frequency. Denies: dysuria Integumentary: Reports: abrasion, lesions. Denies: rash Neurological: Denies: headache, weakness Past Medical History - Past Medical History Medical history: Reports: non-contributory, asthma, atrial fibrillation, CHF, CVA, kidney stones Surgical history: Reports: angioplasty/stent, cholecystectomy, hysterectomy Psychiatric history: Reports: anxiety, depression, panic disorder - Social History Smoking Status: Never smoker Smokeless Tobacco Status: No Alcohol use: Reports: none Drug use: Reports: none Physical Exam - General Limitations: no limitations General appearance: alert, in no apparent distress, obese Course Vital Signs Temperature 99.3 F 04/26/18 22:44 Pulse Rate 78 04/26/18 22:44 Respiratory Rate 18 04/26/18 22:44 Blood Pressure 119/51 04/26/18 22:44 O2 Sat by Pulse Oximetry 100 04/26/18 22:44 Temperature 99.3 F 04/26/18 22:44 Pulse Rate 78 04/27/18 00:00 Respiratory Rate 18 04/26/18 22:44 Blood Pressure 100/51 04/27/18 00:00 O2 Sat by Pulse Oximetry 100 04/27/18 00:00 Oxygen Delivery Oxygen Delivery Room Air Medical Decision Making - Medical Records Medical records reviewed: Yes I reviewed the patient's medical records. - Lab Data Lab results reviewed: Yes I reviewed the patient's lab results. Result diagrams: 04/26/18 22:25 04/26/18 22:25 Lab Results 04/26/18 04/26/18 04/26/18 Range/Units 22:25 22:25 22:25 WBC 7.7 (4.3-11.1) K/mcL RBC 3.66 L (3.82-4.97) M/mcL Hgb 10.3 L (11.5-15.4) g/dL Hct 31.9 L (35.3-44.9) % MCV 87.2 (83.0-100.0) fL MCH 28.1 (28.0-33.3) pg MCHC 32.3 (31.6-35.5) g/dL RDW 14.8 H (11.5-14.5) % Plt Count 161 (140-400) K/mcL MPV 10.6 (9.4-12.4) fL Immature Gran % 0.3 (0-4) % Seg Neutrophils % 64.2 % Lymphocytes % 23.4 % Monocytes % 6.1 % Eosinophils % 5.6 % Basophils % 0.4 % Neutrophils # 5.0 (1.6-8.9) K/mcL Lymphocytes # 1.8 (0.6-4.6) K/mcL Monocytes # 0.5 (0.0-1.3) K/mcL Eosinophils # 0.4 (0.0-0.6) K/mcL Basophils # 0.0 (0.0-0.2) K/mcL Sodium 137 (136-145) mEq/L Potassium 3.5 (3.5-5.1) mEq/L Chloride 104 (98-107) mEq/L Carbon Dioxide 26 (23-29) mEq/L BUN 13 (8-23) mg/dL Creatinine 0.74 (0.60-1.20) mg/dL Est GFR ( Amer) > 60 (> 60) Est GFR (Non-Af Amer) > 60 (> 60) BUN/Creatinine Ratio 18 (6-26) Glucose 132 H (70-105) mg/dL Calculated Osmolality 286 (280-300) Calcium 8.6 (8.6-10.3) mg/dL B-Natriuretic Peptide 185 H (Less than 100) pg/mL Urine Color (Yellow) Urine Clarity (Clear) Urine pH (5.0-8.0) pH Units Ur Specific [place] (1.010-1.025) Urine Protein (Neg-Trace) mg/dL Urine Glucose (UA) (Normal) mg/dL Urine Ketones (Negative) mg/dL Urine Blood (Negative) Urine Nitrite (Negative) Urine Bilirubin (Negative) Urine Urobilinogen (Normal) mg/dL Ur Leukocyte Esterase (Negative) Urine Microscopic RBC (0-3) per hpf Urine Microscopic WBC (0-3) per hpf Ur Squamous Epith Cells (None-Few) per lpf Urine Bacteria (None-Few) per hpf Hyaline Casts (None-Few) per lpf 04/26/18 Range/Units 22:52 WBC (4.3-11.1) K/mcL RBC (3.82-4.97) M/mcL Hgb (11.5-15.4) g/dL Hct (35.3-44.9) % MCV (83.0-100.0) fL MCH (28.0-33.3) pg MCHC (31.6-35.5) g/dL RDW (11.5-14.5) % Plt Count (140-400) K/mcL MPV (9.4-12.4) fL Immature Gran % (0-4) % Seg Neutrophils % % Lymphocytes % % Monocytes % % Eosinophils % % Basophils % % Neutrophils # (1.6-8.9) K/mcL Lymphocytes # (0.6-4.6) K/mcL Monocytes # (0.0-1.3) K/mcL Eosinophils # (0.0-0.6) K/mcL Basophils # (0.0-0.2) K/mcL Sodium (136-145) mEq/L Potassium (3.5-5.1) mEq/L Chloride (98-107) mEq/L Carbon Dioxide (23-29) mEq/L BUN (8-23) mg/dL Creatinine (0.60-1.20) mg/dL Est GFR ( Amer) (> 60) Est GFR (Non-Af Amer) (> 60) BUN/Creatinine Ratio (6-26) Glucose (70-105) mg/dL Calculated Osmolality (280-300) Calcium (8.6-10.3) mg/dL B-Natriuretic Peptide (Less than 100) pg/mL Urine Color Yellow (Yellow) Urine Clarity Cloudy A (Clear) Urine pH 6.0 (5.0-8.0) pH Units Ur Specific [place] 1.009 L (1.010-1.025) Urine Protein Negative (Neg-Trace) mg/dL Urine Glucose (UA) Normal (Normal) mg/dL Urine Ketones Negative (Negative) mg/dL Urine Blood Small H (Negative) Urine Nitrite Positive A (Negative) Urine Bilirubin Negative (Negative) Urine Urobilinogen Normal (Normal) mg/dL Ur Leukocyte Esterase Large H (Negative) Urine Microscopic RBC 3-5 H (0-3) per hpf Urine Microscopic WBC TNTC H (0-3) per hpf Ur Squamous Epith Cells Moderate H (None-Few) per lpf Urine Bacteria Moderate H (None-Few) per hpf Hyaline Casts None Seen (None-Few) per lpf - Radiology Data Radiology results reviewed: Yes I reviewed the patient's radiology results. Chest X-Ray 04/26/18 22:25 IMPRESSION: No acute findings. D/ / Vineet Cyr / Vineet Cyr Interpreting Provider: Vineet Cyr Critical Care Time Critical Care Time: No Attestation Statement - Attestation Attestation: I, Joni Gupta MD, personally evaluated this patient and discussed their management with the resident physician. I reviewed the resident's note and agree with the documented findings, medical decision making, and plan of care. 68-year-old female presents to the emergency department by EMS with a complaint of increased pain and swelling in the lower extremities over the past 2 days. Also she has developed redness and warmth of the left lower leg and also the right foot. She does have a history of cellulitis in the past. She has not noticed any fever but some chills. Some mild shortness of breath. No cough. No chest pain. On examination patient is a well-developed obese elderly female in no acute distress. She is alert and oriented 3. There is no cyanosis or diaphoresis. Breath sounds are clear and equal bilaterally. No rales or wheezes noted. Heart regular rate and rhythm. Abdomen soft and nontender with normal bowel sounds. Labs reviewed. Significant UTI. Chest x-ray negative. No acute changes on EKG. The hospitalist, Dr. Crespo, was consulted and accepted admission of the patient.
[2018-04-27] MEDS ORDERED: Naloxone 0.4 MG/ML INJ IVP PRN (03:58)
--- NOTE | 2018-04-27 04:23 | Internal Med History&Physical ---
Date of Encounter: 04/27/18 Time of Encounter: 04:09 Internal Medicine - H&P: HPI Chief complaint: LE edema Admitted From: Home Plans for Post Hospital Care: Home History of present illness: Ms. Golden is a 68 year old female presents with cc of leg swelling that started on tuesday and progressively worsened. Patient reports she has hx of diastolic CHF on lasix. She called her PCP who instructed her to increase her lasix dose to 40mg 2 tabs BID x 3 days. However her LE edema continued to worsen to the point she could not stand up. Patient has physical theraphy at home and she was not able to ambulate. Along with this she developed a region of erythema on her LLE (smith) yesterday morning that progressively grew. Patient denies fever, chills, trauma, sick contacts. She also reports compliance with low salt fluid restricted diet. Patient has hx of urinary incontinence and reports numerous UTIs in the past that have required admission. She denies dysuria, frequency, hesitancy. SHe also has hx of kidney stones and wsa discharge from [facility] in march after a percutanneous introduction guide renal pelvis and ureter with dilation and cystoscopy wiht insertion of the ureteral J stent. There she was found to have SVT started on metoprolol and LLE DVT but not started on anticoagulation. SHe saw her Pcp on tuesday who ordered repeat labs and LE dopplers but these have not been completed. Patient was also seen to have diagnosis of afib rvr in previous admission and started on xeralto which she does not take anymore, unclear why. Past Med Surg Social Fam HX - Past Medical History Medical history: non-contributory, asthma, atrial fibrillation, CHF, CVA, kidney stones Additional medical history: recurrent UTI's Psychiatric history: anxiety, depression, panic disorder - Past Surgical History Surgical History: angioplasty/stent, cholecystectomy, hysterectomy Additional surgical history: bladder surgeries, lap band , right ureteral stent - Social History Smoking Status: Never smoker Smokeless Tobacco Status: No Alcohol use: none Drug use: none - Family History Brother Living Status: Still Living Hx Family Cardiac Disorders: Yes (HTN) Hx Family Endocrine Disorder: Yes (Diabetes) Mother Living Status: Hx Family Cardiac Disorders: Yes (htn) Hx Family Endocrine Disorder: Yes (dm) Father Living Status: Hx Family Cardiac Disorders: Yes (CABG x3 HTN diabetes) Hx Family Respiratory Disorders: No Hx Family Cancer: No Hx Family GI Disorders: No Hx Family Endocrine Disorder: Yes (diabetes) Hx Family Neuromuscular Disorders: No Hx Family Neurologic Disorders: No Hx Family HEENT Disorders: No Hx Family Autoimmune Disorders: No Internal Medicine - H&P: Meds Furosemide [Lasix] 40 mg PO DAILY PRN 12/05/17 [History] Aspirin [Lo-Dose Aspirin EC] 81 mg PO DAILY 12/12/17 [History] Promethazine [Phenergan] 25 mg PO DAILY PRN 01/30/18 [History] Cefdinir [Omnicef] 300 mg PO BID #20 capsule 02/02/18 [Rx] Magnesium Oxide [Mag-Ox] 400 mg PO BID #60 tablet 02/02/18 [Rx] Potassium Chloride 20 meq PO BID #60 tab.er.prt 02/02/18 [Rx] 3 Allergy/AdvReac Type Severity Reaction Status Date / Time shellfish derived Allergy Severe Anaphylaxis Verified 01/30/18 09:11 levofloxacin [From Levaquin] Allergy Hives Verified 01/30/18 09:11 Penicillins Allergy Blister Verified 01/30/18 09:11 prednisone Allergy See Verified 01/30/18 09:11 Comments Sulfa (Sulfonamide Allergy Hives Verified 01/30/18 09:11 Antibiotics) egg AdvReac Severe Throat Verified 01/30/18 09:11 swelling nitrofurantoin AdvReac Severe Bruising Verified 01/30/18 09:11 [From Macrobid] on arms All Systems PM: A 10-system review of systems was performed and is negative for pertinent findings except as documented above in the HPI. Review of systems: Constitutional: Denies fever, chills HEENT: Denies headache, trauma, blurry vision, eye discharge, ear pain, ear discharge neck pain, sore throat, rhinorrhea Heart: Denies chest pain palpitations, Reports LE edema Lungs: Denies shortness of breath cough Abdomen: Denies abdominal pain nausea vomiting diarrhea MSK: Denies back pain, falls, joint pain Kidney: Denies dysuria, hematuria Skin: Report LLE erythema Neuro: Denies numbness and tingling Psych: denies axniety, depression - Constitutional Vitals: Temp Pulse Resp BP Pulse Ox 98.6 F 92 16 116/68 98 04/27/18 01:31 04/27/18 01:31 04/27/18 01:31 04/27/18 01:31 04/27/18 01:31 Exam: General: pleasant, without distress HEENT: Head atraumatic, normocephalic, EOMI, PERRL, absent ear discharge or trauma, Moist Mucous Membranes, uvula midline Neck: nontender to palpation, absent lymphadenopathy, Cardiovascualr: Regular rate and rhythm with no murmur, absent gallops or rubs, 3+ pedal edema, radial pulses 2 out of 4 Lungs: Clear to auscultation bilaterally, not in respiratory distress Abdomen: Soft nontender, nondistended positive bowel sounds, absent hepatomegaly Skin: warm and dry, absent rash, absent open wounds and nodules MSK: absent clubbing, cyanosis, joints without swelling Neuro: Cranial nerves II through XII intact, UE and LE sensation equal bilaterally, UE and LEstrength 4/5, alert oriented 3, Psych: good insight and judgment, Internal Med - H&P Results - Labs CBC & Chem 7: 04/26/18 22:25 04/26/18 22:25 - Assessment and plan (1) Diastolic congestive heart failure Current Visit: Yes Status: Acute Assessment and plan: 68y/o female presents with worsening LE swelling she saw pcp on tuesday and ECW note states her swelling was trace but since then worsened and pcp instructed her to increase her lasix dose but this did not help she denies sob [id number] Last echocardiogram on 12/2016 with LVEF of 65% with mild left ventricular diastolic dysfunction She reports compliance with salt and fluid restriction. cxr negative for acute findings lungs clear patient is not in chf exacerbation but her LE edema has worsened Plan: Strict I's and O's, IV Lasix, fluid restriction to 1500 mL Qualifiers: Heart failure chronicity: chronic Qualified Code(s): I50.32 - Chronic diastolic (congestive) heart failure (2) Cellulitis Current Visit: Yes Status: Acute Assessment and plan: developing cellulitis of LLE region marked patient denies trauma she has had cellulitis in the past not in sepsis plan: vancomycin, ceftriaxone (patient allergic to penicillins). MRSA nasal swab. Cultures sent Qualifiers: Site of cellulitis: extremity Site of cellulitis of extremity: lower extremity Laterality: left Qualified Code(s): L03.116 - Cellulitis of left lower limb (3) Pressure ulcer Current Visit: Yes Status: Acute Assessment and plan: pressure ulcer on right buttock consult wound care Qualifiers: Pressure injury location: buttock Pressure injury stage: stage 2 Laterality: right Qualified Code(s): L89.312 - Pressure ulcer of right buttock , stage 2 (4) Supraventricular tachycardia Current Visit: Yes Status: Resolved Assessment and plan: hx of [facility]T [facility] currently normal sinus rhythm continue home metoprolol (5) CAD (coronary artery disease) Current Visit: Yes Status: Chronic Assessment and plan: hx of CAD s/p PCI wit one stent denies chest pain continue aspirin and metoprolol. Qualifiers: Coronary Disease-Associated Artery/Lesion type: [place] artery [place] vs. transplanted heart: [place] heart Associated angina: angina presence unspecified Qualified Code(s): I25.10 - Atherosclerotic heart disease of [place] coronary artery without angina pectoris (6) UTI (urinary tract infection) Current Visit: Yes Status: Acute Assessment and plan: patient does not report dysuria, hematuria, frequency, hesitancy urinalysis indicates nitrite/esterase she does not meet criteria for sepsis in the past patient has had UTIs to multiple organisms urine culture sent treating this UTI as patient has recent procedure for j stent palcement 2nd to nephrolithiasis she is on ceftriaxone Qualifiers: Urinary tract infection type: site unspecified Hematuria presence: without hematuria Qualified Code(s): N39.0 - Urinary tract infection, site not specified (7) Atrial fibrillation Current Visit: Yes Status: Chronic Assessment and plan: patient had admission in January 2017 for afib rvr she was discharged on xeralto at that time she does not take this anymore 2nd to hematuria december 2017 and this was never restarted CHADSVASC 5 currently doesnot have hematuria she takes metoprolol will need to be evaluated again for anticoagulation. Qualifiers: Atrial fibrillation type: paroxysmal Qualified Code(s): I48.0 - Paroxysmal atrial fibrillation (8) Physical deconditioning Current Visit: Yes Status: Acute Assessment and plan: patient reports she is unable to walk/stand 2nd to LE edema she has home health and home PT consult pt/ot (9) DVT (deep venous thrombosis) Current Visit: Yes Status: Acute Assessment and plan: patients PCP [facility] note states she was diagnosed with D[facility] but not started on anticoagulation will order venous dopplers b/l patient has hx of atrial fibrillation and she will likely need to be started on anticoagulation even if her venous dopplers are negative. Qualifiers: DVT location: lower extremity Affected thrombotic vein of extremity: unspecified vein of extremity Chronicity: unspecified Laterality: left Qualified Code(s): I82.402 - Acute embolism and thrombosis of unspecified deep veins of left lower extremity (10) Morbid obesity Current Visit: Yes Status: Chronic - Time Spent With Patient Total time spent is greater than 50% in coordination of care (as documented) at patient's floor/unit and/or counseling patient:
[2018-04-27] MEDS ORDERED: *HR* Heparin 5,000 UNIT/ML VIAL SQ SCH (06:00)
--- NOTE | 2018-04-27 08:23 | Event Note ---
<Linus Nelson - Last Filed: 04/27/18 14:36> Date of Encounter: 04/27/18 Time of Encounter: 09:45 S: Presented to the ED 4am for cc: worsening leg swelling since Tuesday + LLE smith erythema x 1day. She is on Lasix 40mg PO BID, watches salt and fluid intake. PMHx CHF EF 65 mid 2016, hx paroxysmal afib/SVT/afibrvr, currently on toprol, s/ p PCI x1 stent. CXR unremarkable, ECG shows NSR, admitted for diuresis of bilateral lower leg swelling, not in true exacerbation. At time of my evaluation, patient is somnolent but rousable, she denies chest discomfort, shortness of breath, or fever. She does note her left leg is red, which has been outlined by admitting team, she denies leg pain, endorses leg swelling. O: Head exam: Present: atraumatic, normocephalic Eye exam: Present: conjuntiva pink, sclera anicteric, EOMI Neck exam: Present: supple, trachea midline. Absent: lymphadenopathy Respiratory exam: Present: CTAB, normal chest wall excursion. Absent: accessory muscle use, rales, rhonchi, wheezes Cardiovascular exam: Present: RRR, +S1, +S2, tachycardia. Absent: diastolic murmur, gallop, rubs, systolic murmur GI/Abdominal exam: Present: normal bowel sounds, soft, no peritoneal signs. Absent: distended, tenderness Extremities exam: Present: warm, radial pulses palpable and symmetrical. +1 pitting edema bilaterally, tibial erythema on left 3x3cm surface area with margins that have not expanded or regressed Absent: calf tenderness, cyanosis Neurological exam: Present: CN II-XII intact, oriented X3, no focal deficits. Absent: facial droop, speech deficit Skin exam: Present: dry, intact A:/P: (1) Diastolic congestive heart failure CC: worsening bilateral LE swelling despite home Lasix 40mg PO [id number] Last echocardiogram on 12/2016 with LVEF of 65% with mild left ventricular diastolic dysfunction She reports compliance with salt and fluid restriction. CXR negative for acute findings Lungs clear on auscultation Patient is not in chf exacerbation but her LE edema has worsened Plan: Strict I's and O's, Lasix 40mg IV BID, fluid restriction to 1500 mL (2) Cellulitis Cellulitis of LLE region marked by night admit team; margins the same at time of exam patient denies trauma she has had cellulitis in the past not in sepsis plan: vancomycin, ceftriaxone (patient allergic to penicillins). MRSA nasal swab. Cultures pending (3) Pressure ulcer pressure ulcer on right buttock wound care daily in place (4) Supraventricular tachycardia hx of SVT diagnosed in [facility] where patient had her lithotripsy currently normal sinus rhythm continue home metoprolol (5) CAD (coronary artery disease) hx of CAD s/p PCI wit one stent denies chest pain continue aspirin and metoprolol. (6) UTI (urinary tract infection) patient does not report dysuria, hematuria, frequency, hesitancy urinalysis indicates nitrite/esterase she does not meet criteria for sepsis in the past patient has had UTIs to multiple organisms urine culture sent/pending treating this UTI as patient has recent procedure for j stent palcement 2nd to nephrolithiasis she is on ceftriaxone (7) Atrial fibrillation Current Visit: Yes Status: Chronic Assessment and plan: patient had admission in January 2017 for afib rvr she was discharged on xeralto at that time she does not take this anymore 2nd to hematuria december 2017 and this was never restarted CHADSVASC 5 currently doesnot have hematuria she takes metoprolol Patient evaluated and recommend starting Xarelto, patient agrees (8) Physical deconditioning patient reports she is unable to walk/stand 2nd to LE edema she has home health and home PT consult pt/ot (9) DVT (deep venous thrombosis) patients PCP ECW note states she was diagnosed with DVT at [facility] but not started on anticoagulation will order venous dopplers b/l Starting Xarelto this afternoon 1400 Has been on Heparin 5000U sq q8h (10) Morbid obesity Plan as above MDM 8 <Tod Piper - Last Filed: 04/27/18 16:01> Date of Encounter: 04/27/18 Ms Golden was placed in observation earlier today due to edema and UTI. At this point she has some improvement in edema but still has erythema. Agree with assessment and plan as above and in H&P
[2018-04-27] MEDS ORDERED: Furosemide 20 MG/2 ML VIAL IVP SCH (09:00)
[2018-04-27] MEDS: Aspirin 81 MG TAB.CHEW PO SCH (11:03)
[2018-04-27] MEDS: Furosemide 20 MG/2 ML VIAL IVP SCH ×2 (11:04→20:13)
--- NOTE | 2018-04-27 15:14 | Electrocardiograph Report ---
[place] [id number] Test Date: 2018-04-26 Pat Name: Aixa Golden Department: [id number] Room: 3A16 Gender: F Fueler: : [id number] Requested By: Adrian Plasencia Order Number: [id number] Reading MD: Ricardo Laughlin Measurements Intervals [place] Rate: 81 P: 44 CO: 155 QRS: -5 QRSD: 90 T: 28 QT: 406 QTc: 472 Interpretive Statements Sinus rhythm Atrial premature complex Low voltage, precordial leads Electronically Signed On 04-27-2018 15:13:12 EDT by Ricardo Laughlin
[2018-04-27] MEDS: *HR* Rivaroxaban 10 MG TABLET PO SCH (16:43)
[2018-04-27] MEDS: Nystatin SUSP 5 ML UD.LIQ PO SCH ×2 (20:13→21:23)
[2018-04-27] MEDS: *HR* HYDROcodone/Acet 5/325 mg TABLET PO PRN (20:13)
[2018-04-28] MEDS: cefTRIAXone 2,000 MG in 0.9 % Sodium Chloride Mini Bag 100 ML IVPB SCH (00:22)
[2018-04-28 01:57] LABS: Hematocrit 26.8 % (35.3-44.9); Hemoglobin 8.8 g/dL (11.5-15.4); Mean Corpuscular HGB Conc 32.8 g/dL (31.6-35.5); Mean Corpuscular Hemoglobin 27.7 pg (28.0-33.3); Mean Corpuscular Volume 84.3 fL (83.0-100.0); Mean Platelet Volume 10.3 fL (9.4-12.4); Platelet Count 133 K/mcL (140-400); Red Blood Count 3.18 M/mcL (3.82-4.97); Red Cell Distribution Width 14.8 % (11.5-14.5)
[2018-04-28 02:05] LABS: BUN/Creatinine Ratio 16 (6-26); Blood Urea Nitrogen 13 mg/dL (8-23); Calcium 8.3 mg/dL (8.6-10.3); Carbon Dioxide 26 mEq/L (23-29); Chloride 104 mEq/L (98-107); Glucose 126 mg/dL (70-105); Osmolality,Calculated 288 (280-300); Potassium 3.4 mEq/L (3.5-5.1); Sodium 138 mEq/L (136-145); eGFR For Non-African Americans > 60 (> 60)
[2018-04-28] MEDS: *HR* HYDROcodone/Acet 5/325 mg TABLET PO PRN (06:30)
[2018-04-28] MEDS ORDERED: Aminoglycoside Consult 1 EACH MC ONE (08:17)
[2018-04-28] MEDS: *HR* Rivaroxaban 10 MG TABLET PO SCH (09:14)
[2018-04-28] MEDS: Furosemide 20 MG/2 ML VIAL IVP SCH ×2 (09:14→20:18)
[2018-04-28] MEDS: Nystatin SUSP 5 ML UD.LIQ PO SCH ×4 (09:14→20:20)
[2018-04-28] MEDS: Aspirin 81 MG TAB.CHEW PO SCH (09:14)
--- NOTE | 2018-04-28 09:17 | Internal Med Progress Note ---
<Susan Hernandez N - Last Filed: 04/28/18 16:06> Hospitalist Progress Note - Encounter Date of Encounter: 04/28/18 Time of Encounter: 09:17 - Subjective Interval History: Ms. Golden is a 68-year old female who presented to the ED complaining of leg swelling that has progressively worsened since it started on Tuesday. She reportedly contacted her PCP, who recommended increasing her home lasix dose; however, she had no improvement of edema. She reported difficulty ambulating with home PT. She experienced further worsening of edema and development of focal pretibial erythema on her left lower extremity. Medical history is significant for prior cellulitis, urinary incontinence, recurrent UTIs, diastolic CHF, and atrial fibrillation. Urinalysis performed in the ED demonstrated positive nitrites, large leukocyte esterase, and WBC TNTC. She was admitted to the hospital and started on antibiotic therapy with vancomycin and ceftriaxone for presumed cellulitis and UTI. On evaluation today, she states that she is feeling fairly well, and notes improvement in her lower extremity edema. She currently has a Sanchez catheter in place and reportedly declined to have it removed today. She denies any chest pain, shortness of breath, or GI symptoms. Morning laboratory studies demonstrated mild hypokalemia of 3.4, for which patient was ordered 40mEq KCl suspension. Nursing staff reported that the patient refused that medication, stating that it "makes her sick". She further stated that the tablet form had the same effect, and that the IV form malin. Nursing staff was advised to document patient refusal. Patient had no other significant events. - Exam Vitals: Temp Pulse Resp BP Pulse Ox 97.7 F 77 14 100/53 96 04/28/18 06:37 04/28/18 06:37 04/28/18 06:37 04/28/18 06:37 04/28/18 06:37 Exam: * General: Pleasant adult female resting in bed. She does not appear to be in acute distress. She is pleasant and answers questions appropriately. * HEENT: Atraumatic and normocephalic. * Cardiovascular: Regular rate and rhythm. No murmurs, rubs, or gallops. * Respiratory: CTA bilaterally. Chest rises and falls symmetrically. * Gastrointestinal: Active bowel sounds x 4 quadrants. Abdomen is soft and nontender. * Extremities: Bilateral lower extremities are edematous. Pretibial erythema present on the left lower extremity that does not appear to cross the initial marker boundary. Small erythematous area present on the dorsal surface of the right foot. Patient states that edema is improved from yesterday. - Assessment and Plan (1) Cellulitis Current Visit: Yes Status: Acute Assessment and Plan: Patient presented to the ED complaining of left lower extremity pain and progressive swelling. She has a history of cellulitis. She did not appear to be septic on admission, with all vital signs WNL. She was started empirically on vancomycin and ceftriaxone, with MRSA nasal swab ordered. Cultures of her wound were obtained prior to IV antibiotics. Antibiotic therapy was deescalated, with discontinuation of vancomycin today in favor of doxycyline BID. Patient reports improvement in the appearance of her left leg. Erythema does not appear to spread past the initial boundary markings. Will continue current medication regimen pending results of microbial cultures. (2) UTI (urinary tract infection) Current Visit: Yes Status: Acute Assessment and Plan: Patient has a history of frequent UTIs. Urinalysis in the ED demonstrated small blood, positive nitrite, large leukocyte esterase, and WBC TNTC. Urine culture demonstrated >10,000 cfu; however, mixed species were noted and repeat culture was recommended. Patient was started on ceftriaxone 2000mg IVPD daily. She denies any urinary frequency, urgency, or dysuria. Will continue to treat suspected UTI due to urinalysis findings. (3) Pressure ulcer Current Visit: Yes Status: Acute Assessment and Plan: Patient has a pressure ulcer on her right buttock. Wound care consult placed for evaluation and management of this problem. (4) Atrial fibrillation Current Visit: Yes Status: Chronic Assessment and Plan: Patient has a history of atrial fibrillation with RVR. Following that diagnosis , she was started on xarelto; however, she does not currently take that medication 2/2 hematuria. Planned to restart xarelto; however, patient has a pressure ulcer on her buttock that is bleeding. Will hold xarelto at this time, with plan to start that therapy prior to discharge. (5) Supraventricular tachycardia Current Visit: Yes Status: Resolved Assessment and Plan: Patient has a history of SVT; however, she is currently in NSR. Continue home medication of metoprolol 25mg Q8H. (6) CAD (coronary artery disease) Current Visit: Yes Status: Chronic Assessment and Plan: Continue home medications of metoprolol 25mg Q8H and aspirin 81mg daily. Patient denies any cardiac symptoms. (7) Diastolic congestive heart failure Current Visit: Yes Status: Acute Assessment and Plan: Patient has a history of diastolic CHF. Her home medications include lasix 40mg BID. She has had worsening LE edema that was not improved with lasix. BNP on admission was 185. Will continue lasix diuresis and 1.5L fluid-restriction diet with strict I/Os and daily weights. She does not appear to be having an acute CHF exacerbation. DVT Prophylaxis: Heparin 5000units SQ Q12H. - Time Spent with Patient Total time spent is greater than 50% in coordination of care (as documented) at patient's floor/unit and/or counseling patient: Internal Medicine: Result - Labs CBC & Chem 7: 04/28/18 14:50 04/28/18 01:21 Labs: Short CBC 04/28/18 Range/Units 01:21 WBC 5.3 (4.3-11.1) K/mcL Hgb 8.8 L D (11.5-15.4) g/dL Hct 26.8 L (35.3-44.9) % Plt Count 133 L (140-400) K/mcL BMP 04/28/18 01:21 Sodium 138 Potassium 3.4 L Chloride 104 Carbon Dioxide 26 BUN 13 Creatinine 0.79 Glucose 126 H Calcium 8.3 L Consult Discharge Plan - Plan Referrals: Nithin Hernandez [Primary Care Provider] - <Tod Piper - Last Filed: 04/28/18 17:51> Hospitalist Progress Note - Encounter Date of Encounter: 04/28/18 - Exam Vitals: Temp Pulse Resp BP Pulse Ox 97.5 F L 77 14 102/61 97 04/28/18 15:23 04/28/18 15:23 04/28/18 15:23 04/28/18 15:23 04/28/18 15:23 - Assessment and Plan (1) Supraventricular tachycardia Current Visit: Yes Status: Resolved (2) CAD (coronary artery disease) Current Visit: Yes Status: Chronic (3) UTI (urinary tract infection) Current Visit: Yes Status: Acute (4) Atrial fibrillation Current Visit: Yes Status: Chronic (5) Cellulitis Current Visit: Yes Status: Acute (6) Pressure ulcer Current Visit: Yes Status: Acute (7) Diastolic congestive heart failure Current Visit: Yes Status: Acute (8) Hypokalemia Current Visit: No Status: Acute Assessment and Plan: New today. (9) Anemia Current Visit: Yes Status: Acute - Time Spent with Patient Total time spent is greater than 50% in coordination of care (as documented) at patient's floor/unit and/or counseling patient: Internal Medicine: Result - Labs CBC & Chem 7: 04/28/18 14:50 04/28/18 01:21 Labs: Short CBC 04/28/18 Range/Units 14:50 Hgb 9.0 L (11.5-15.4) g/dL Hct 28.0 L (35.3-44.9) % - Attending Attestation I examined this patient and my medical decision-making was reviewed with the Resident Physician on 04/28/18. I agree with the documented findings, disposition and treatment plan as described except to the extent set forth below. Ms Golden is currently admitted for acute cellulitis, fluid overload and UTI. She remains moderate to high risk due to potential for worsening clinical status. Ms Golden is feeling a little better. Still with a lot of edema. Redness resolving on L leg. Mouth feels better today. Has had bleeding from a wound on backside. Exam alert comfortable Mucus membranes dry Heart irreg and not tachy No wheeze Abd soft Edema slightly better. I/P 1. Cellulitis 2. Edema 3. Anemia due to blood loss Further diagnoses and plan as above. <Susan Hernandez N - Last Filed: 04/28/18 16:06> (1) Cellulitis Qualifiers: Site of cellulitis: extremity Site of cellulitis of extremity: lower extremity Laterality: left Qualified Code(s): L03.116 - Cellulitis of left lower limb (2) UTI (urinary tract infection) Qualifiers: Urinary tract infection type: site unspecified Hematuria presence: without hematuria Qualified Code(s): N39.0 - Urinary tract infection, site not specified (3) Pressure ulcer Qualifiers: Pressure injury location: buttock Pressure injury stage: stage 2 Laterality : right Qualified Code(s): L89.312 - Pressure ulcer of right buttock, stage 2 (4) Atrial fibrillation Qualifiers: Atrial fibrillation type: paroxysmal Qualified Code(s): I48.0 - Paroxysmal atrial fibrillation (6) CAD (coronary artery disease) Qualifiers: Coronary Disease-Associated Artery/Lesion type: [place] artery [place] vs. transplanted heart: [place] heart Associated angina: angina presence unspecified Qualified Code(s): I25.10 - Atherosclerotic heart disease of [place] coronary artery without angina pectoris (7) Diastolic congestive heart failure Qualifiers: Heart failure chronicity: chronic Qualified Code(s): I50.32 - Chronic diastolic (congestive) heart failure <Tod Piper - Last Filed: 04/28/18 17:51> (2) CAD (coronary artery disease) Qualifiers: Coronary Disease-Associated Artery/Lesion type: [place] artery [place] vs. transplanted heart: [place] heart Associated angina: without angina Qualified Code(s): I25.10 - Atherosclerotic heart disease of [place] coronary artery without angina pectoris (3) UTI (urinary tract infection) Qualifiers: Urinary tract infection type: acute cystitis Hematuria presence: without hematuria Qualified Code(s): N30.00 - Acute cystitis without hematuria (4) Atrial fibrillation Qualifiers: Atrial fibrillation type: paroxysmal Qualified Code(s): I48.0 - Paroxysmal atrial fibrillation (5) Cellulitis Qualifiers: Site of cellulitis: extremity Site of cellulitis of extremity: lower extremity Laterality: left Qualified Code(s): L03.116 - Cellulitis of left lower limb (6) Pressure ulcer Qualifiers: Pressure injury location: buttock Pressure injury stage: stage 2 Laterality : right Qualified Code(s): L89.312 - Pressure ulcer of right buttock, stage 2 (7) Diastolic congestive heart failure Qualifiers: Heart failure chronicity: chronic Qualified Code(s): I50.32 - Chronic diastolic (congestive) heart failure (9) Anemia Qualifiers: Anemia type: other cause Other causes of anemia: acute posthemorrhagic Qualified Code(s): D62 - Acute posthemorrhagic anemia
[2018-04-28] MEDS ORDERED: Potassium Chloride Elixir 20 MEQ/15 ML UDC PO ONE ×2 (09:24→13:45)
[2018-04-28] MEDS: *HR* Heparin 5,000 UNIT/ML VIAL SQ SCH (18:11)
[2018-04-28] MEDS: Doxycycline 100 MG CAPSULE PO SCH (20:18)
[2018-04-29] MEDS: *HR* HYDROcodone/Acet 5/325 mg TABLET PO PRN ×3 (00:11→15:45)
[2018-04-29] MEDS: cefTRIAXone 2,000 MG in 0.9 % Sodium Chloride Mini Bag 100 ML IVPB SCH ×2 (00:11→23:53)
[2018-04-29 03:42] LABS: Basophils % 0.5 %; Eosinophils # 0.6 K/mcL (0.0-0.6); Eosinophils % 9.1 %; Hemoglobin 9.4 g/dL (11.5-15.4); Immature Granulocytes % 0.7 % (0-4); Immature Platelets 3.6 % (1.1-6.1); Lymphocytes # 1.6 K/mcL (0.6-4.6); Lymphocytes % 26.6 %; Mean Corpuscular HGB Conc 32.4 g/dL (31.6-35.5); Mean Corpuscular Hemoglobin 28.1 pg (28.0-33.3); Mean Corpuscular Volume 86.6 fL (83.0-100.0); Mean Platelet Volume 10.9 fL (9.4-12.4); Monocytes # 0.4 K/mcL (0.0-1.3); Neutrophils # 3.4 K/mcL (1.6-8.9); Platelet Count 140 K/mcL (140-400); Red Blood Count 3.35 M/mcL (3.82-4.97); Red Cell Distribution Width 14.7 % (11.5-14.5); Segmented Neutrophils % 56.1 %
[2018-04-29 04:05] LABS: BUN/Creatinine Ratio 19 (6-26); Blood Urea Nitrogen 15 mg/dL (8-23); Calcium 8.3 mg/dL (8.6-10.3); Carbon Dioxide 25 mEq/L (23-29); Chloride 104 mEq/L (98-107); Glucose 134 mg/dL (70-105); Osmolality,Calculated 285 (280-300); Potassium 3.4 mEq/L (3.5-5.1); Sodium 136 mEq/L (136-145); eGFR For Non-African Americans > 60 (> 60)
[2018-04-29] MEDS: *HR* Heparin 5,000 UNIT/ML VIAL SQ SCH ×2 (05:04→18:37)
[2018-04-29] MEDS: Ondansetron 4 MG/2 ML VIAL IVP PRN (08:52)
[2018-04-29] MEDS: Aspirin 81 MG TAB.CHEW PO SCH (10:07)
[2018-04-29] MEDS: Doxycycline 100 MG CAPSULE PO SCH ×2 (10:07→21:07)
[2018-04-29] MEDS: Furosemide 20 MG TABLET PO SCH ×2 (10:07→18:37)
[2018-04-29] MEDS: Nystatin SUSP 5 ML UD.LIQ PO SCH ×4 (10:09→20:22)
[2018-04-29] MEDS ORDERED: 0.9 % Sodium Chloride w KCl 20 MEQ/1,000 ML MLS IVC SCH (12:00)
--- NOTE | 2018-04-29 12:01 | Internal Med Progress Note ---
Hospitalist Progress Note - Encounter Date of Encounter: 04/29/18 Time of Encounter: 11:45 - Subjective Interval History: Ms Golden is currently admitted for lower extremity edema and CHF. She remains moderate to high risk due to potential for worsening clinical status. Ms Golden has lower BP today. Lasix on hold. No fever or chills. Had some nausea today. - Exam Vitals: Temp Pulse Resp BP Pulse Ox 97.5 F L 67 15 95/56 97 04/29/18 10:54 04/29/18 10:54 04/29/18 10:54 04/29/18 10:54 04/29/18 10:54 Exam: General: Alert and oriented. Comfortable at this time. Skin: Normal color, no rash, no lesions. H: Normocephalic. EENT: EOMI, pupils equal, Mucus membranes moist. No lesion. Cardiovascular: Normal S1 & S2, no rubs, murmurs or gallops. No JVD. Pulse regular. Not tachycardic Lungs: Normal breath sounds, no wheezes or crackles. Abdomen: Soft, non-tender, no rigidity. Normal bowel sounds. Extremities: Erythema is improving. Edema is somewhat better. Neurological: Normal cognition and motor skills. Pulses: Carotid and radial pulses normal +2. Rest of the physical exam is non contributory - Assessment and Plan (1) Cellulitis Current Visit: Yes Status: Acute Assessment and Plan: Patient presented to the ED complaining of left lower extremity pain and progressive swelling. She has a history of cellulitis. She did not appear to be septic on admission, with all vital signs WNL. She was started empirically on vancomycin and ceftriaxone, with MRSA nasal swab ordered. Cultures of her wound were obtained prior to IV antibiotics. Antibiotic therapy was deescalated, with discontinuation of vancomycin today in favor of doxycyline BID. Patient reports improvement in the appearance of her left leg. Erythema does not appear to spread past the initial boundary markings. Will continue current medication regimen pending results of microbial cultures. 04/29 - Continues to slowly improve. Continue abx as ordered. (2) CAD (coronary artery disease) Current Visit: Yes Status: Chronic Assessment and Plan: Continue home medications of metoprolol 25mg Q8H and aspirin 81mg daily. Patient denies any cardiac symptoms. (3) UTI (urinary tract infection) Current Visit: Yes Status: Acute Assessment and Plan: Patient has a history of frequent UTIs. Urinalysis in the ED demonstrated small blood, positive nitrite, large leukocyte esterase, and WBC TNTC. Urine culture demonstrated >10,000 cfu; however, mixed species were noted and repeat culture was recommended. Patient was started on ceftriaxone 2000mg IVPD daily. She denies any urinary frequency, urgency, or dysuria. Will continue to treat suspected UTI due to urinalysis findings. Continue abx for now. (4) Atrial fibrillation Current Visit: Yes Status: Chronic Assessment and Plan: Patient has a history of atrial fibrillation with RVR. Following that diagnosis , she was started on xarelto; however, she does not currently take that medication 2/2 hematuria. Planned to restart xarelto; however, patient has a pressure ulcer on her buttock that is bleeding. Will hold xarelto at this time, with plan to start that therapy prior to discharge. No issue today. (5) Pressure ulcer Current Visit: Yes Status: Acute Assessment and Plan: Patient has a pressure ulcer on her right buttock. Wound care consult placed for evaluation and management of this problem. (6) Diastolic congestive heart failure Current Visit: Yes Status: Acute Assessment and Plan: Patient has a history of diastolic CHF. Her home medications include lasix 40mg BID. She has had worsening LE edema that was not improved with lasix. BNP on admission was 185. Will continue lasix diuresis and 1.5L fluid-restriction diet with strict I/Os and daily weights. She does not appear to be having an acute CHF exacerbation. 04/29 - lasix on hold due to low BP today. Reassess tomorrow. (7) Hypokalemia Current Visit: No Status: Acute Assessment and Plan: Persists. She won't take oral. Will give liter of fluid with K. (8) Anemia Current Visit: Yes Status: Chronic Assessment and Plan: H/H stable today. (9) Morbid obesity Current Visit: Yes Status: Chronic Assessment and Plan: Chronic issue - Time Spent with Patient Total time spent is greater than 50% in coordination of care (as documented) at patient's floor/unit and/or counseling patient: Internal Medicine: Result - Labs CBC & Chem 7: 04/29/18 03:26 04/29/18 03:26 Labs: Short CBC 04/28/18 04/29/18 Range/Units 14:50 03:26 WBC 6.1 (4.3-11.1) K/mcL Hgb 9.0 L 9.4 L (11.5-15.4) g/dL Hct 28.0 L 29.0 L (35.3-44.9) % Plt Count 140 (140-400) K/mcL Neutrophils # 3.4 (1.6-8.9) K/mcL [facility] 04/29/18 03:26 Sodium 136 Potassium 3.4 L Chloride 104 Carbon Dioxide 25 BUN 15 Creatinine 0.80 Glucose 134 H Calcium 8.3 L Consult Discharge Plan - Plan Referrals: Nithin Hernandez [Primary Care Provider] - (1) Cellulitis Qualifiers: Site of cellulitis: extremity Site of cellulitis of extremity: lower extremity Laterality: left Qualified Code(s): L03.116 - Cellulitis of left lower limb (2) CAD (coronary artery disease) Qualifiers: Coronary Disease-Associated Artery/Lesion type: [place] artery [place] vs. transplanted heart: [place] heart Associated angina: without angina Qualified Code(s): I25.10 - Atherosclerotic heart disease of [place] coronary artery without angina pectoris (3) UTI (urinary tract infection) Qualifiers: Urinary tract infection type: acute cystitis Hematuria presence: without hematuria Qualified Code(s): N30.00 - Acute cystitis without hematuria (4) Atrial fibrillation Qualifiers: Atrial fibrillation type: paroxysmal Qualified Code(s): I48.0 - Paroxysmal atrial fibrillation (5) Pressure ulcer Qualifiers: Pressure injury location: buttock Pressure injury stage: stage 2 Laterality : right Qualified Code(s): L89.312 - Pressure ulcer of right buttock, stage 2 (6) Diastolic congestive heart failure Qualifiers: Heart failure chronicity: chronic Qualified Code(s): I50.32 - Chronic diastolic (congestive) heart failure (8) Anemia Qualifiers: Anemia type: other cause Other causes of anemia: acute posthemorrhagic Qualified Code(s): D62 - Acute posthemorrhagic anemia
[2018-04-30 04:21] LABS: Hematocrit 29.6 % (35.3-44.9); Hemoglobin 9.4 g/dL (11.5-15.4); Mean Corpuscular HGB Conc 31.8 g/dL (31.6-35.5); Mean Corpuscular Hemoglobin 27.8 pg (28.0-33.3); Mean Corpuscular Volume 87.6 fL (83.0-100.0); Mean Platelet Volume 10.7 fL (9.4-12.4); Platelet Count 142 K/mcL (140-400); Red Blood Count 3.38 M/mcL (3.82-4.97); Red Cell Distribution Width 14.7 % (11.5-14.5)
[2018-04-30 04:33] LABS: BUN/Creatinine Ratio 19 (6-26); Blood Urea Nitrogen 14 mg/dL (8-23); Calcium 8.4 mg/dL (8.6-10.3); Carbon Dioxide 27 mEq/L (23-29); Chloride 106 mEq/L (98-107); Glucose 140 mg/dL (70-105); Magnesium 1.8 mg/dL (1.6-2.6); Osmolality,Calculated 291 (280-300); Potassium 4.1 mEq/L (3.5-5.1); Sodium 139 mEq/L (136-145); eGFR For Non-African Americans > 60 (> 60)
[2018-04-30] MEDS: *HR* Heparin 5,000 UNIT/ML VIAL SQ SCH ×2 (05:33→18:24)
[2018-04-30] MEDS: Furosemide 20 MG TABLET PO SCH ×2 (10:07→15:44)
[2018-04-30] MEDS: Doxycycline 100 MG CAPSULE PO SCH ×2 (10:07→22:03)
[2018-04-30] MEDS: Nystatin SUSP 5 ML UD.LIQ PO SCH ×4 (10:07→22:11)
[2018-04-30] MEDS: Aspirin 81 MG TAB.CHEW PO SCH (10:07)
[2018-04-30] MEDS ORDERED: Capsaicin 0.025% 60 GM TUBE TP PRN (14:57)
--- NOTE | 2018-04-30 15:02 | Internal Med Progress Note ---
Hospitalist Progress Note - Encounter Date of Encounter: 04/30/18 Time of Encounter: 12:30 - Subjective Interval History: Ms Golden is currently admitted for lower extremity edema and CHF. She remains moderate to high risk due to potential for worsening clinical status. Ms Golden's BP is better today. L leg more swollen. Also having pain in L wrist on occasion. Feels like it is "out of joint." No CP or SOB today. No GI issues. - Exam Vitals: Temp Pulse Resp BP Pulse Ox 97.9 F 78 17 97/53 95 04/30/18 14:57 04/30/18 14:57 04/30/18 14:57 04/30/18 14:57 04/30/18 14:57 Exam: General: Alert and oriented. Comfortable at this time. Skin: Normal color, no rash, no lesions. H: Normocephalic. EENT: EOMI, pupils equal, Mucus membranes moist. No lesion. Cardiovascular: Normal S1 & S2, no rubs, murmurs or gallops. No JVD. Pulse regular. Not tachycardic at this time. Lungs: Normal breath sounds, no wheezes or crackles. Abdomen: Soft, non-tender, no rigidity. Normal bowel sounds. Extremities: Erythema is improving. Edema of L leg is worse than R. L wrist without deformity or tenderness or erythema. Neurological: Normal cognition and motor skills. Pulses: Carotid and radial pulses normal +2. Rest of the physical exam is non contributory - Assessment and Plan (1) Left wrist pain Current Visit: Yes Status: Acute Assessment and Plan: Will check xray and add Capsaicin cream. (2) Cellulitis Current Visit: Yes Status: Acute Assessment and Plan: Patient presented to the ED complaining of left lower extremity pain and progressive swelling. She has a history of cellulitis. She did not appear to be septic on admission, with all vital signs WNL. She was started empirically on vancomycin and ceftriaxone, with MRSA nasal swab ordered. Cultures of her wound were obtained prior to IV antibiotics. Antibiotic therapy was deescalated, with discontinuation of vancomycin today in favor of doxycyline BID. Patient reports improvement in the appearance of her left leg. Erythema does not appear to spread past the initial boundary markings. Will continue current medication regimen pending results of microbial cultures. 04/29 - Continues to slowly improve. Continue abx as ordered. 04/30 - Redness nearly gone but edema of L leg is worse. Duplex ordered of L leg. Complete 7 days of abx total. (3) CAD (coronary artery disease) Current Visit: Yes Status: Chronic Assessment and Plan: Continue home medications of metoprolol 25mg Q8H and aspirin 81mg daily. Patient denies any cardiac symptoms. (4) UTI (urinary tract infection) Current Visit: Yes Status: Acute Assessment and Plan: Patient has a history of frequent UTIs. Urinalysis in the ED demonstrated small blood, positive nitrite, large leukocyte esterase, and WBC TNTC. Urine culture demonstrated >10,000 cfu; however, mixed species were noted and repeat culture was recommended. Patient was started on ceftriaxone 2000mg IVPD daily. She denies any urinary frequency, urgency, or dysuria. Will continue to treat suspected UTI due to urinalysis findings. 04/30 - Has received 3 days of IV abx (Ceftriaxone). Will do 7 days of abx total for cellulitis and UTI. (5) Atrial fibrillation Current Visit: Yes Status: Chronic Assessment and Plan: Patient has a history of atrial fibrillation with RVR. Following that diagnosis , she was started on xarelto; however, she does not currently take that medication 2/2 hematuria. Planned to restart xarelto; however, patient has a pressure ulcer on her buttock that is bleeding. Will hold xarelto at this time, with plan to start that therapy prior to discharge. No issue today. (6) Pressure ulcer Current Visit: Yes Status: Acute Assessment and Plan: Patient has a pressure ulcer on her right buttock. Wound care orders appreciated. (7) Diastolic congestive heart failure Current Visit: Yes Status: Acute Assessment and Plan: Patient has a history of diastolic CHF. Her home medications include lasix 40mg BID. She has had worsening LE edema that was not improved with lasix. BNP on admission was 185. Will continue lasix diuresis and 1.5L fluid-restriction diet with strict I/Os and daily weights. She does not appear to be having an acute CHF exacerbation. 04/29 - lasix on hold due to low BP today. Reassess tomorrow. 04/30 - Restarted Lasix PO at lower dose today. (8) Hypokalemia Current Visit: No Status: Acute Assessment and Plan: Recheck tomorrow. (9) Anemia Current Visit: Yes Status: Chronic Assessment and Plan: H/H stable. Recheck tomorrow. (10) Morbid obesity Current Visit: Yes Status: Chronic Assessment and Plan: Chronic issue - Time Spent with Patient Total time spent is greater than 50% in coordination of care (as documented) at patient's floor/unit and/or counseling patient: Internal Medicine: Result - Labs CBC & Chem 7: 04/30/18 04:02 04/30/18 04:02 Labs: Short CBC 04/30/18 Range/Units 04:02 WBC 5.6 (4.3-11.1) K/mcL Hgb 9.4 L (11.5-15.4) g/dL Hct 29.6 L (35.3-44.9) % Plt Count 142 (140-400) K/mcL BMP 04/30/18 04:02 Sodium 139 Potassium 4.1 Chloride 106 Carbon Dioxide 27 BUN 14 Creatinine 0.75 Glucose 140 H Calcium 8.4 L Consult Discharge Plan - Plan Referrals: Nithin Hernandez [Primary Care Provider] - (2) Cellulitis Qualifiers: Site of cellulitis: extremity Site of cellulitis of extremity: lower extremity Laterality: left Qualified Code(s): L03.116 - Cellulitis of left lower limb (3) CAD (coronary artery disease) Qualifiers: Coronary Disease-Associated Artery/Lesion type: [place] artery [place] vs. transplanted heart: [place] heart Associated angina: without angina Qualified Code(s): I25.10 - Atherosclerotic heart disease of [place] coronary artery without angina pectoris (4) UTI (urinary tract infection) Qualifiers: Urinary tract infection type: acute cystitis Hematuria presence: without hematuria Qualified Code(s): N30.00 - Acute cystitis without hematuria (5) Atrial fibrillation Qualifiers: Atrial fibrillation type: paroxysmal Qualified Code(s): I48.0 - Paroxysmal atrial fibrillation (6) Pressure ulcer Qualifiers: Pressure injury location: buttock Pressure injury stage: stage 2 Laterality : right Qualified Code(s): L89.312 - Pressure ulcer of right buttock, stage 2 (7) Diastolic congestive heart failure Qualifiers: Heart failure chronicity: chronic Qualified Code(s): I50.32 - Chronic diastolic (congestive) heart failure (9) Anemia Qualifiers: Anemia type: other cause Other causes of anemia: acute posthemorrhagic Qualified Code(s): D62 - Acute posthemorrhagic anemia
[2018-04-30] MEDS ORDERED: Ipratropium/Albuterol Neb 3 ML ONE (15:39)
[2018-04-30] MEDS: *HR* HYDROcodone/Acet 5/325 mg TABLET PO PRN (15:44)
[2018-04-30] MEDS: Ipratropium/Albuterol Neb 3 ML IH SCH ×2 (15:47→22:57)
[2018-04-30] MEDS ORDERED: *HR* Heparin 5,000 UNIT/ML VIAL IVP PRN ×2 (19:23)
[2018-04-30] MEDS ORDERED: *HR* Heparin 5,000 UNIT/ML VIAL IVP ONE (19:23)
--- NOTE | 2018-04-30 19:37 | Event Note ---
Date of Encounter: 04/30/18 Time of Encounter: 19:06 Alerted by pts. nurse JORGE Nicholson that pts. Venous Doppler was positive for DVT in left distal PTV. Pt. was previously on Xarelto d/t hx of atrial fibrillation but Xarelto was stopped d/t bleeding from pressure ulcer on coccyx. Pt. was receiving SQ heparin Q12HR for DVT prophylaxis. Pt. discussed w/Dr. Piper d/t report of new DVT w/recommendation to begin heparin drip. SQ heparin stopped. Pt. to be monitored closely for signs of increased bleeding and drop in Hgb. Timed H/H ordered. Pt. to be monitored closely overnight.
[2018-04-30 19:48] LABS: Hematocrit 29.1 % (35.3-44.9); Hemoglobin 9.2 g/dL (11.5-15.4); Mean Corpuscular HGB Conc 31.6 g/dL (31.6-35.5); Mean Corpuscular Hemoglobin 27.9 pg (28.0-33.3); Mean Corpuscular Volume 88.2 fL (83.0-100.0); Mean Platelet Volume 10.5 fL (9.4-12.4); Platelet Count 133 K/mcL (140-400); Red Cell Distribution Width 14.6 % (11.5-14.5)
[2018-04-30 19:53] LABS: Heparin anti-factor XA UFH 0.13 IU/mL (0.30-0.70)
[2018-04-30 19:54] LABS: INR 1.4; Prothrombin Time 15.3 Seconds (9.4-12.1)
[2018-04-30] MEDS: Heparin 25,000 UNIT/500 ML D5W 25,000 UNIT/500 ML BAG IVC SCH (22:06)
[2018-05-01] MEDS: *HR* HYDROcodone/Acet 5/325 mg TABLET PO PRN ×2 (00:31→18:05)
[2018-05-01] MEDS: cefTRIAXone 2,000 MG in 0.9 % Sodium Chloride Mini Bag 100 ML IVPB SCH ×2 (00:32→23:25)
[2018-05-01 01:49] LABS: Hemoglobin 9.2 g/dL (11.5-15.4)
[2018-05-01 02:08] LABS: BUN/Creatinine Ratio 21 (6-26); Blood Urea Nitrogen 15 mg/dL (8-23); Calcium 8.1 mg/dL (8.6-10.3); Carbon Dioxide 27 mEq/L (23-29); Chloride 105 mEq/L (98-107); Glucose 159 mg/dL (70-105); Magnesium 1.8 mg/dL (1.6-2.6); Osmolality,Calculated 292 (280-300); Potassium 3.5 mEq/L (3.5-5.1); Sodium 139 mEq/L (136-145); eGFR For Non-African Americans > 60 (> 60)
[2018-05-01] MEDS: Ipratropium/Albuterol Neb 3 ML IH SCH ×2 (03:25→10:54)
[2018-05-01 05:14] LABS: Hematocrit 28.5 % (35.3-44.9); Mean Corpuscular HGB Conc 31.6 g/dL (31.6-35.5); Mean Corpuscular Hemoglobin 27.5 pg (28.0-33.3); Mean Corpuscular Volume 87.2 fL (83.0-100.0); Mean Platelet Volume 10.8 fL (9.4-12.4); Platelet Count 139 K/mcL (140-400); Red Blood Count 3.27 M/mcL (3.82-4.97); Red Cell Distribution Width 14.6 % (11.5-14.5)
[2018-05-01] MEDS: Furosemide 20 MG TABLET PO SCH ×2 (08:57→18:05)
[2018-05-01] MEDS: Aspirin 81 MG TAB.CHEW PO SCH (08:57)
[2018-05-01] MEDS: Doxycycline 100 MG CAPSULE PO SCH ×2 (08:58→21:25)
[2018-05-01] MEDS: Nystatin SUSP 5 ML UD.LIQ PO SCH ×4 (09:08→21:26)
[2018-05-01] MEDS ORDERED: Petrolatum, white 28.35 GM TUBE TP PRN (10:21)
--- NOTE | 2018-05-01 10:28 | Internal Med Progress Note ---
<Linus Nelson - Last Filed: 05/01/18 15:44> Hospitalist Progress Note - Encounter Date of Encounter: 05/01/18 Time of Encounter: 10:15 - Subjective Interval History: Ms. Golden is positive for left distal dvt, heparin drip initiated last night. She denies shortness of breath, hemoptysis, or chest discomfort. She has been mildly bleeding from her chapped lips. Leg swellling has persisted L>R, erythema has improved. - Exam Vitals: Temp Pulse Resp BP Pulse Ox 97.7 F 66 16 105/65 97 05/01/18 10:26 05/01/18 10:26 05/01/18 10:26 05/01/18 10:26 05/01/18 10:26 Exam: General: Alert and oriented. Comfortable at this time. Skin: Normal color, no rash, no lesions. H: Normocephalic. EENT: EOMI, pupils equal, Mucus membranes moist. No lesion. Cardiovascular: Normal S1 & S2, no rubs, murmurs or gallops. No JVD. Pulse regular. Not tachycardic at this time. Lungs: Normal breath sounds, no wheezes or crackles. Abdomen: Soft, non-tender, no rigidity. Normal bowel sounds. Extremities: Erythema over left tibia is improving. Edema of L leg is worse than R. L wrist without deformity or tenderness or erythema. Neurological: Normal cognition, no slurred speech, no facial asymmetry, and normal motor skills. Pulses: dorsalis and radial pulses normal +2. - Assessment and Plan (1) DVT (deep venous thrombosis) Current Visit: Yes Status: Acute Assessment and Plan: 04/30/18 17:49 venous duplex unilateral Patient appears positive in left distal PTV for DVT. Patient is negative for SVT. Plan: Heparin drip per bolus and maintenance protocol (2) UTI (urinary tract infection) Current Visit: Yes Status: Acute Assessment and Plan: Has received 4 days of IV abx (Ceftriaxone). Will do 7 days of abx total for cellulitis and UTI. (3) Coronary artery disease Current Visit: No Status: Chronic Assessment and Plan: On home bb and asa (4) Atrial fibrillation Current Visit: Yes Status: Chronic Assessment and Plan: Patient has a history of atrial fibrillation with RVR. Following that diagnosis , she was started on xarelto; however, she does not currently take that medication 2/2 hematuria. Planned to restart xarelto; however, patient has a pressure ulcer on her buttock that is bleeding. Xarelto was held at that time. (5) Anemia Current Visit: No Status: Acute Assessment and Plan: stable H&H 9.2(9.2, 9.4) (6) Hypokalemia Current Visit: No Status: Acute Assessment and Plan: repleted 04/30, monitoring (7) Cellulitis Current Visit: Yes Status: Acute Assessment and Plan: Improving, regressing/diminishing margins afebrile On doxycycline BID, de-escalated from vanc (day five of seven of abx) (8) Pressure ulcer Current Visit: Yes Status: Acute Assessment and Plan: Daily wound care per Wound care team appreciated. present on admission and is a Stage 2 to the right buttock. The staff is using Allevyn Foam dressing; [facility]-Microklenz (9) Diastolic congestive heart failure Current Visit: Yes Status: Acute Assessment and Plan: bps remain in low 90s low 100s close monitoring, currently receiving Lasix 20mg po bid (10) Left wrist pain Current Visit: Yes Status: Acute Assessment and Plan: s/p capsaicin cream, improved symptoms, mild osteoarthritis on xray (11) Morbid obesity Current Visit: Yes Status: Chronic Assessment and Plan: chronic condition - Time Spent with Patient Total time spent is greater than 50% in coordination of care (as documented) at patient's floor/unit and/or counseling patient: Internal Medicine: Result - Labs CBC & Chem 7: 05/01/18 04:26 05/01/18 01:26 Labs: Short CBC 04/30/18 05/01/18 05/01/18 Range/Units 19:34 01:25 04:26 WBC 5.4 6.4 (4.3-11.1) K/mcL Hgb 9.2 L 9.2 L 9.0 L (11.5-15.4) g/dL Hct 29.1 L 29.0 L 28.5 L (35.3-44.9) % Plt Count 133 L 139 L (140-400) K/mcL BMP 05/01/18 01:26 Sodium 139 Potassium 3.5 Chloride 105 Carbon Dioxide 27 BUN 15 Creatinine 0.71 Glucose 159 H Calcium 8.1 L - ABG Interpretation ABG results: PT/INR, D-dimer PT 15.3 Seconds (9.4-12.1) H 04/30/18 19:34 - Impressions Impressions Wrist X-Ray 04/30/18 14:56 IMPRESSION: Mild osteoarthritis. D/ / Jordan Caceres MD / Jordan Caceres MD Interpreting Provider: Jordan Caceres MD Consult Discharge Plan - Plan Referrals: Nithin Hernandez [Primary Care Provider] - <Tod Piper - Last Filed: 05/01/18 16:27> Hospitalist Progress Note - Encounter Date of Encounter: 05/01/18 - Exam Vitals: Temp Pulse Resp BP Pulse Ox 97.7 F 82 16 90/56 97 05/01/18 14:44 05/01/18 14:44 05/01/18 14:44 05/01/18 14:44 05/01/18 14:44 - Assessment and Plan (1) DVT (deep venous thrombosis) Current Visit: Yes Status: Acute (2) Left wrist pain Current Visit: Yes Status: Acute (3) Cellulitis Current Visit: Yes Status: Acute (4) CAD (coronary artery disease) Current Visit: Yes Status: Chronic (5) UTI (urinary tract infection) Current Visit: Yes Status: Acute (6) Atrial fibrillation Current Visit: Yes Status: Chronic (7) Pressure ulcer Current Visit: Yes Status: Acute (8) Diastolic congestive heart failure Current Visit: Yes Status: Chronic (9) Hypokalemia Current Visit: No Status: Resolved (10) Anemia Current Visit: Yes Status: Chronic (11) Morbid obesity Current Visit: Yes Status: Chronic - Time Spent with Patient Total time spent is greater than 50% in coordination of care (as documented) at patient's floor/unit and/or counseling patient: Internal Medicine: Result - Labs CBC & Chem 7: 05/01/18 04:26 05/01/18 01:26 Labs: Short CBC 04/30/18 05/01/18 05/01/18 Range/Units 19:34 01:25 04:26 WBC 5.4 6.4 (4.3-11.1) K/mcL Hgb 9.2 L 9.2 L 9.0 L (11.5-15.4) g/dL Hct 29.1 L 29.0 L 28.5 L (35.3-44.9) % Plt Count 133 L 139 L (140-400) K/mcL BMP 05/01/18 01:26 Sodium 139 Potassium 3.5 Chloride 105 Carbon Dioxide 27 BUN 15 Creatinine 0.71 Glucose 159 H Calcium 8.1 L - ABG Interpretation ABG results: PT/INR, D-dimer PT 15.3 Seconds (9.4-12.1) H 04/30/18 19:34 - Impressions Impressions Wrist X-Ray 04/30/18 14:56 IMPRESSION: Mild osteoarthritis. D/ / Jordan Caceres MD / Jordan Caceres MD Interpreting Provider: Jordan Caceres MD - Attending Attestation I examined this patient and my medical decision-making was reviewed with the Resident Physician on 05/01/18. I agree with the documented findings, disposition and treatment plan as described except to the extent set forth below. Ms Golden is currently admitted for fluid overload and cellulitis. She has new DVT L popliteal region and is on heparin drip. She remains moderate to high risk due to potential for worsening clinical status. Ms Golden is having issues with bleeding lips. She said her lip peeled and on heparin she has started bleeding. No fever or chills. Now on heparin drip due to L popliteal DVT. Monitoring H/H at this time. Renal function remains stable. Exam alert Comfortable in bed Mucus membranes dry - lip bleeding Heart not tachy No wheeze Abd soft Erythema on leg unchanged I/P 1. DVT L leg - on heparin drip. Watching for signs of increased bleeding ( Xarelto had been stopped due to bleeding from sacral wound). If H/H remains stable will restart Xarelto or consider Eliquis. If has bleeding issues will need to discuss possible IVC filter. 2. Cellulitis - complete abx Further diagnoses and plan as above. <LeslieLinus - Last Filed: 05/01/18 15:44> (1) DVT (deep venous thrombosis) Qualifiers: DVT location: lower extremity Affected thrombotic vein of extremity: unspecified vein of extremity Chronicity: unspecified Laterality: left Qualified Code(s): I82.402 - Acute embolism and thrombosis of unspecified deep veins of left lower extremity (2) UTI (urinary tract infection) Qualifiers: Urinary tract infection type: acute cystitis Hematuria presence: without hematuria Qualified Code(s): N30.00 - Acute cystitis without hematuria (3) Coronary artery disease Qualifiers: Coronary Disease-Associated Artery/Lesion type: [place] artery [place] vs. transplanted heart: [place] heart Associated angina: angina presence unspecified Qualified Code(s): I25.10 - Atherosclerotic heart disease of [place] coronary artery without angina pectoris (4) Atrial fibrillation Qualifiers: Atrial fibrillation type: paroxysmal Qualified Code(s): I48.0 - Paroxysmal atrial fibrillation (5) Anemia Qualifiers: Anemia type: unspecified type Qualified Code(s): D64.9 - Anemia, unspecified (7) Cellulitis Qualifiers: Site of cellulitis: extremity Site of cellulitis of extremity: lower extremity Laterality: left Qualified Code(s): L03.116 - Cellulitis of left lower limb (8) Pressure ulcer Qualifiers: Pressure injury location: buttock Pressure injury stage: stage 2 Laterality : right Qualified Code(s): L89.312 - Pressure ulcer of right buttock, stage 2 (9) Diastolic congestive heart failure Qualifiers: Heart failure chronicity: chronic Qualified Code(s): I50.32 - Chronic diastolic (congestive) heart failure <Tod Piper - Last Filed: 05/01/18 16:27> (1) DVT (deep venous thrombosis) Qualifiers: DVT location: lower extremity Affected thrombotic vein of extremity: popliteal Chronicity: acute Laterality: left Qualified Code(s): I82.432 - Acute embolism and thrombosis of left popliteal vein (3) Cellulitis Qualifiers: Site of cellulitis: extremity Site of cellulitis of extremity: lower extremity Laterality: left Qualified Code(s): L03.116 - Cellulitis of left lower limb (4) CAD (coronary artery disease) Qualifiers: Coronary Disease-Associated Artery/Lesion type: [place] artery [place] vs. transplanted heart: [place] heart Associated angina: without angina Qualified Code(s): I25.10 - Atherosclerotic heart disease of [place] coronary artery without angina pectoris (5) UTI (urinary tract infection) Qualifiers: Urinary tract infection type: acute cystitis Hematuria presence: without hematuria Qualified Code(s): N30.00 - Acute cystitis without hematuria (6) Atrial fibrillation Qualifiers: Atrial fibrillation type: paroxysmal Qualified Code(s): I48.0 - Paroxysmal atrial fibrillation (7) Pressure ulcer Qualifiers: Pressure injury location: buttock Pressure injury stage: stage 2 Laterality : right Qualified Code(s): L89.312 - Pressure ulcer of right buttock, stage 2 (8) Diastolic congestive heart failure Qualifiers: Heart failure chronicity: chronic Qualified Code(s): I50.32 - Chronic diastolic (congestive) heart failure (10) Anemia Qualifiers: Anemia type: other cause Other causes of anemia: acute posthemorrhagic Qualified Code(s): D62 - Acute posthemorrhagic anemia
[2018-05-01] MEDS ORDERED: Ipratropium/Albuterol Neb 3 ML IH PRN (14:09)
[2018-05-01] MEDS ORDERED: Petrolatum, White OINT.PACK TP PRN (14:30)
[2018-05-01] MEDS: Heparin 25,000 UNIT/500 ML D5W 25,000 UNIT/500 ML BAG IVC SCH (18:07)
[2018-05-02 04:16] LABS: Hemoglobin 8.3 g/dL (11.5-15.4); Mean Corpuscular HGB Conc 31.9 g/dL (31.6-35.5); Mean Corpuscular Hemoglobin 27.2 pg (28.0-33.3); Mean Corpuscular Volume 85.2 fL (83.0-100.0); Mean Platelet Volume 10.7 fL (9.4-12.4); Platelet Count 133 K/mcL (140-400); Red Blood Count 3.05 M/mcL (3.82-4.97); Red Cell Distribution Width 14.8 % (11.5-14.5)
[2018-05-02 04:40] LABS: Alanine Aminotransferase 15 Units/L (7-52); Albumin 2.5 g/dL (3.5-5.7); Albumin/Globulin Ratio 0.7 (1.1-2.2); Alkaline Phosphatase 134 Units/L (34-104); Aspartate Amino Transferase 28 Units/L (13-39); BUN/Creatinine Ratio 21 (6-26); Bilirubin,Total 0.4 mg/dL (0.3-1.0); Blood Urea Nitrogen 14 mg/dL (8-23); Calcium 8.2 mg/dL (8.6-10.3); Carbon Dioxide 28 mEq/L (23-29); Chloride 105 mEq/L (98-107); Globulin 3.6 g/dL (2.4-3.5); Glucose 121 mg/dL (70-105); Osmolality,Calculated 286 (280-300); Potassium 3.6 mEq/L (3.5-5.1); Sodium 137 mEq/L (136-145); Total Protein 6.1 g/dL (6.4-8.9); eGFR For Non-African Americans > 60 (> 60)
[2018-05-02] MEDS: Nystatin SUSP 5 ML UD.LIQ PO SCH ×4 (10:04→20:03)
[2018-05-02] MEDS: Aspirin 81 MG TAB.CHEW PO SCH (10:04)
[2018-05-02] MEDS: Doxycycline 100 MG CAPSULE PO SCH ×2 (10:04→20:03)
[2018-05-02] MEDS: Furosemide 20 MG TABLET PO SCH ×2 (10:05→18:40)
[2018-05-02] MEDS: *HR* HYDROcodone/Acet 5/325 mg TABLET PO PRN (10:10)
[2018-05-02 11:54] LABS: Hemoglobin 9.3 g/dL (11.5-15.4)
--- NOTE | 2018-05-02 12:49 | Internal Med Progress Note ---
<Tod Piper - Last Filed: 05/02/18 16:32> Hospitalist Progress Note - Encounter Date of Encounter: 05/02/18 - Exam Vitals: Temp Pulse Resp BP Pulse Ox 97.7 F 76 15 101/60 96 05/02/18 14:50 05/02/18 14:50 05/02/18 14:50 05/02/18 14:50 05/02/18 14:50 - Assessment and Plan (1) DVT (deep venous thrombosis) Current Visit: Yes Status: Acute (2) Left wrist pain Current Visit: Yes Status: Chronic (3) Cellulitis Current Visit: Yes Status: Acute (4) CAD (coronary artery disease) Current Visit: Yes Status: Chronic (5) UTI (urinary tract infection) Current Visit: Yes Status: Resolved (6) Atrial fibrillation Current Visit: Yes Status: Chronic (7) Pressure ulcer Current Visit: Yes Status: Acute (8) Diastolic congestive heart failure Current Visit: Yes Status: Chronic (9) Anemia Current Visit: Yes Status: Chronic (10) Morbid obesity Current Visit: Yes Status: Chronic - Time Spent with Patient Total time spent is greater than 50% in coordination of care (as documented) at patient's floor/unit and/or counseling patient: Internal Medicine: Result - Labs CBC & Chem 7: 05/02/18 11:17 05/02/18 03:31 Labs: Short CBC 05/02/18 05/02/18 Range/Units 03:31 11:17 WBC 5.5 (4.3-11.1) K/mcL Hgb 8.3 L 9.3 L (11.5-15.4) g/dL Hct 26.0 L 29.0 L (35.3-44.9) % Plt Count 133 L (140-400) K/mcL BMP 05/02/18 03:31 Sodium 137 Potassium 3.6 Chloride 105 Carbon Dioxide 28 BUN 14 Creatinine 0.67 Glucose 121 H Calcium 8.2 L Liver Function 05/02/18 Range/Units 03:31 Total Bilirubin 0.4 (0.3-1.0) mg/dL AST 28 (13-39) Units/L ALT 15 (7-52) Units/L Alkaline Phosphatase 134 H (34-104) Units/L Albumin 2.5 L (3.5-5.7) g/dL - ABG Interpretation ABG results: PT/INR, D-dimer PT 15.3 Seconds (9.4-12.1) H 04/30/18 19:34 Consult Discharge Plan - Plan Referrals: Nithin Hernandez [Primary Care Provider] - - Attending Attestation I examined this patient and my medical decision-making was reviewed with the Resident Physician on 05/02/18. I agree with the documented findings, disposition and treatment plan as described except to the extent set forth below. Ms Golden is currently admitted for L popliteal DVT and fluid overload. She remains moderate to high risk due to potential for worsening clinical status. Ms Golden had more hematuria and bleeding from her sacral wound overnight while she was on heparin. No fever or chills. No cough. Edema about the same. Exam alert Comfortable Mucus membranes moist. Lips less swollen and bleeding. Heart reg No wheeze Abd soft Edema about the same I/P 1. Hematuria 2. Anemia Will need to stop heparin. Consult vascular - ? IVC filter. Continue diuresis. Further diagnoses and plan as above. <Linus Nelson - Last Filed: 05/02/18 17:52> Hospitalist Progress Note - Encounter Date of Encounter: 05/02/18 Time of Encounter: 10:00 - Subjective Interval History: 05/02 Pt continues to have bleed from catheter and moderate bleeding into padding from ulcer; hgb has been stable in 9s for last 3 days. 05/01 Ms. Golden is positive for left distal dvt, heparin drip initiated last night. She denies shortness of breath, hemoptysis, or chest discomfort. She has been mildly bleeding from her chapped lips. Leg swellling has persisted L>R, erythema has improved. - Exam Vitals: Temp Pulse Resp BP Pulse Ox 98.1 F 80 16 100/62 96 05/02/18 12:01 05/02/18 12:01 05/02/18 12:01 05/02/18 12:05/02/18 12:01 Exam: General: Alert and oriented. Comfortable at this time. Skin: Normal color, no rash, punctate lip lesions from dryness. H: Normocephalic. EENT: EOMI, pupils equal, Mucus membranes moist. No lesion. Cardiovascular: Normal S1 & S2, no rubs, murmurs or gallops. No JVD. Pulse regular. Not tachycardic at this time. Lungs: Normal breath sounds, no wheezes or crackles. Abdomen: Soft, non-tender, no rigidity. Normal bowel sounds. Extremities: Erythema over left tibia with improved margins. Edema of L leg is worse than R. Tender as well. L wrist without deformity or tenderness or erythema. Neurological: Normal cognition, no slurred speech, no facial asymmetry, and normal motor skills. Pulses: dorsalis and radial pulses normal +2. - Assessment and Plan (1) DVT (deep venous thrombosis) Current Visit: Yes Status: Acute Assessment and Plan: Left posterior tibial vein dvt on doppler 04/30 heparin drip initiated, heparin activity assay in therapeutic range, patient developed bleed from lips, hematuria, and from decubitous ulcer Patient demonstrating bleeding complications from anticoagulation: Vascular surgery consulted for consideration for IVC placement; patient placed NPO (she ate 2 leaves of salad around 1300), heparin discontinued. (2) Hematuria Current Visit: No Status: Acute Assessment and Plan: Hematuria on anticoagulation, therapeutic range heparin; hgb stable in 9s Heparin drip for acute LLE dvt discontinued, plan for vascular surgery ivc placement evening (3) UTI (urinary tract infection) Current Visit: Yes Status: Resolved Assessment and Plan: 5 of 7 of abx total for cellulitis and UTI (4) Coronary artery disease Current Visit: No Status: Chronic Assessment and Plan: On home bb and asa (5) Atrial fibrillation Current Visit: Yes Status: Chronic Assessment and Plan: Continuing Lopressor; discontinuing anticoagulation based on clinical findings above (6) Anemia Current Visit: No Status: Acute Assessment and Plan: H&H in 9s 05/02, 05/01, 04/30 no recent transfusion history presence of bleed from stage 2 decubitous ulcer and hematuria from heparin in setting of acute dvt (7) Cellulitis Current Visit: Yes Status: Acute Assessment and Plan: Continues to be improving, regressing/diminishing margins afebrile On doxycycline BID, de-escalated from vanc (day six of seven of abx) (8) Pressure ulcer Current Visit: Yes Status: Acute Assessment and Plan: Daily wound care per Wound care team appreciated. present on admission and is a Stage 2 to the right buttock. The staff is using Allevyn Foam dressing; [facility]-Microklenz (9) Diastolic congestive heart failure Current Visit: Yes Status: Chronic Assessment and Plan: continuing lasix, monitoring bps, 100s systolic (10) Morbid obesity Current Visit: Yes Status: Chronic Assessment and Plan: chronic condition - Time Spent with Patient Total time spent is greater than 50% in coordination of care (as documented) at patient's floor/unit and/or counseling patient: Internal Medicine: Result - Labs CBC & Chem 7: 05/02/18 11:17 05/02/18 03:31 Labs: Short CBC 05/02/18 05/02/18 Range/Units 03:31 11:17 WBC 5.5 (4.3-11.1) K/mcL Hgb 8.3 L 9.3 L (11.5-15.4) g/dL Hct 26.0 L 29.0 L (35.3-44.9) % Plt Count 133 L (140-400) K/mcL BMP 05/02/18 03:31 Sodium 137 Potassium 3.6 Chloride 105 Carbon Dioxide 28 BUN 14 Creatinine 0.67 Glucose 121 H Calcium 8.2 L Liver Function 05/02/18 Range/Units 03:31 Total Bilirubin 0.4 (0.3-1.0) mg/dL AST 28 (13-39) Units/L ALT 15 (7-52) Units/L Alkaline Phosphatase 134 H (34-104) Units/L Albumin 2.5 L (3.5-5.7) g/dL - ABG Interpretation ABG results: PT/INR, D-dimer PT 15.3 Seconds (9.4-12.1) H 04/30/18 19:34 <Tod Piper - Last Filed: 05/02/18 16:32> (1) DVT (deep venous thrombosis) Qualifiers: DVT location: lower extremity Affected thrombotic vein of extremity: popliteal Chronicity: acute Laterality: left Qualified Code(s): I82.432 - Acute embolism and thrombosis of left popliteal vein (3) Cellulitis Qualifiers: Site of cellulitis: extremity Site of cellulitis of extremity: lower extremity Laterality: left Qualified Code(s): L03.116 - Cellulitis of left lower limb (4) CAD (coronary artery disease) Qualifiers: Coronary Disease-Associated Artery/Lesion type: [place] artery [place] vs. transplanted heart: [place] heart Associated angina: without angina Qualified Code(s): I25.10 - Atherosclerotic heart disease of [place] coronary artery without angina pectoris (5) UTI (urinary tract infection) Qualifiers: Urinary tract infection type: acute cystitis Hematuria presence: without hematuria Qualified Code(s): N30.00 - Acute cystitis without hematuria (6) Atrial fibrillation Qualifiers: Atrial fibrillation type: paroxysmal Qualified Code(s): I48.0 - Paroxysmal atrial fibrillation (7) Pressure ulcer Qualifiers: Pressure injury location: buttock Pressure injury stage: stage 2 Laterality : right Qualified Code(s): L89.312 - Pressure ulcer of right buttock, stage 2 (8) Diastolic congestive heart failure Qualifiers: Heart failure chronicity: chronic Qualified Code(s): I50.32 - Chronic diastolic (congestive) heart failure (9) Anemia Qualifiers: Anemia type: other cause Other causes of anemia: acute posthemorrhagic Qualified Code(s): D62 - Acute posthemorrhagic anemia <Linus Nelson - Last Filed: 05/02/18 17:52> (1) DVT (deep venous thrombosis) Qualifiers: DVT location: lower extremity Affected thrombotic vein of extremity: popliteal Chronicity: acute Laterality: left Qualified Code(s): I82.432 - Acute embolism and thrombosis of left popliteal vein (2) Hematuria Qualifiers: Hematuria type: gross Qualified Code(s): R31.0 - Gross hematuria (3) UTI (urinary tract infection) Qualifiers: Urinary tract infection type: acute cystitis Hematuria presence: without hematuria Qualified Code(s): N30.00 - Acute cystitis without hematuria (4) Coronary artery disease Qualifiers: Coronary Disease-Associated Artery/Lesion type: [place] artery [place] vs. transplanted heart: [place] heart Associated angina: angina presence unspecified Qualified Code(s): I25.10 - Atherosclerotic heart disease of [place] coronary artery without angina pectoris (5) Atrial fibrillation Qualifiers: Atrial fibrillation type: paroxysmal Qualified Code(s): I48.0 - Paroxysmal atrial fibrillation (6) Anemia Qualifiers: Anemia type: unspecified type Qualified Code(s): D64.9 - Anemia, unspecified (7) Cellulitis Qualifiers: Site of cellulitis: extremity Site of cellulitis of extremity: lower extremity Laterality: left Qualified Code(s): L03.116 - Cellulitis of left lower limb (8) Pressure ulcer Qualifiers: Pressure injury location: buttock Pressure injury stage: stage 2 Laterality : right Qualified Code(s): L89.312 - Pressure ulcer of right buttock, stage 2 (9) Diastolic congestive heart failure Qualifiers: Heart failure chronicity: chronic Qualified Code(s): I50.32 - Chronic diastolic (congestive) heart failure
[2018-05-02] MEDS: Ondansetron 4 MG/2 ML VIAL IVP PRN (13:12)
[2018-05-02] MEDS: Fluticasone Propionate Nasal 50 MCG/SPRAY BOTTLE NS SCH (14:22)
[2018-05-02] MEDS: Heparin 25,000 UNIT/500 ML D5W 25,000 UNIT/500 ML BAG IVC SCH ×2 (18:39→23:25)
--- NOTE | 2018-05-02 19:01 | Vascular/Endovasc Consult Note ---
Date of Encounter: 05/02/18 Time of Encounter: 17:30 Assessment and Plan (1) Supraventricular tachycardia Current Visit: Yes Status: Chronic Patient has a chronic history of atrial fibrillation. She has been treated in the past with Xarleto. It is unclear why this has been stopped at this time. She did have a sacral decubitus and apparently there was some bleeding at one point. It is clear that long-term the patient will need to be back on anticoagulation therapy for A. fib. (2) Diastolic congestive heart failure Current Visit: Yes Status: Chronic Patient has a history of congestive heart failure. She states that in the past 2 years she has been pretty much at bedrest Qualifiers: Heart failure chronicity: chronic Qualified Code(s): I50.32 - Chronic diastolic (congestive) heart failure (3) DVT (deep venous thrombosis) Current Visit: Yes Status: Acute Patient has a distal posterior tibial vein DVT in the left lower extremity. I'm questioning whether this is actually a subacute process as she had had a DVT diagnosed at the [facility] last month. It is unknown whether this was the vein involved or there was another vein. She was not placed on anticoagulation at that time. The concerns about the hematuria that were raised earlier may have now been relieved because on my exam today through her Sanchez catheter she has clear yellow urine without sign of clots or jewel blood. The patient has multiple ongoing chronic medical problems. 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 However, I do not think the patient needs an IVC filter at at this time. I recommended that she be given another trial of anticoagulation. She is certainly going to need this long-term for her cardiac arrhythmias. I reviewed this in detail with the patient. All questions were answered. It was explained that if she has future problems that necessitate cessation of anticoagulation therapy that the IVC filter may be placed at that time. Qualifiers: DVT location: lower extremity Affected thrombotic vein of extremity: popliteal Chronicity: acute Laterality: left Qualified Code(s): I82.432 - Acute embolism and thrombosis of left popliteal vein - History of Present Illness Consult date: 05/02/18 Consult reason: Left lower extremity DVT and hematuria Chief complaint: Left leg pain and generalized weakness History of present illness: Ms. Golden is a 68 year old female Who was admitted for a variety of medical problems. She was found to have a left posterior tibial vein acute deep venous thrombosis by recent duplex scanning. The patient had undergone treatment at the [facility] for right kidney stones. The patient states that she had a diagnosis of DVT made then but was not treated. It is unclear why anticoagulation was not initiated at that time. The patient has a history of chronic atrial fibrillation. She has been on Xarleto therapy in the past but this was also discontinued and this is not clear as well. During this hospitalization the patient was noted to have blood in her urine and she also had some bleeding from her lips which has subsequently stopped. Also of note the urine is now clear. The patient in general feels better over the last 1-2 days. Past Med Surg Social Fam HX - Past Medical History Medical history: non-contributory, asthma, atrial fibrillation, CHF, CVA, kidney stones Additional medical history: recurrent UTI's Psychiatric history: anxiety, depression, panic disorder - Past Surgical History Surgical History: angioplasty/stent, cholecystectomy, hysterectomy Additional surgical history: bladder surgeries, lap band , right ureteral stent - Social History Smoking Status: Never smoker Smokeless Tobacco Status: No Alcohol use: none Drug use: none - Family History Brother Living Status: Still Living Hx Family Cardiac Disorders: Yes (HTN) Hx Family Endocrine Disorder: Yes (Diabetes) Mother Living Status: Hx Family Cardiac Disorders: Yes (htn) Hx Family Endocrine Disorder: Yes (dm) Father Living Status: Hx Family Cardiac Disorders: Yes (CABG x3 HTN diabetes) Hx Family Respiratory Disorders: No Hx Family Cancer: No Hx Family GI Disorders: No Hx Family Endocrine Disorder: Yes (diabetes) Hx Family Neuromuscular Disorders: No Hx Family Neurologic Disorders: No Hx Family HEENT Disorders: No Hx Family Autoimmune Disorders: No Medications and Allergies Aspirin Enteric Coated [Aspirin EC] 81 mg PO DAILY 04/27/18 [History] Furosemide [Lasix] 40 mg PO BID 04/27/18 [History] Metoprolol [Lopressor] 12.5 mg PO BID 04/27/18 [History] Non-Formulary Medication [Non-Formulary Medication] 1 each 05/02/18 [History] 3 Allergy/AdvReac Type Severity Reaction Status Date / Time shellfish derived Allergy Severe Anaphylaxis Verified 01/30/18 09:11 levofloxacin [From Levaquin] Allergy Hives Verified 01/30/18 09:11 Penicillins Allergy Blister Verified 01/30/18 09:11 prednisone Allergy See Verified 01/30/18 09:11 Comments Sulfa (Sulfonamide Allergy Hives Verified 01/30/18 09:11 Antibiotics) egg AdvReac Severe Throat Verified 01/30/18 09:11 swelling nitrofurantoin AdvReac Severe Bruising Verified 01/30/18 09:11 [From Macrobid] on arms All Systems Review: The remainder of the systems were reviewed and are negative Exam Vital Signs, Last 4 Hours Temp Pulse Resp BP Pulse Ox 05/02/18 18:32 98.2 F 68 16 105/48 94 General: Present: Conversant, No Apparent Distress, Other (Obese elderly white female who was seen in her room on 3A) HEENT: Present: Atraumatic, Normocephaly, Trachea midline, Other (Obese head and neck.) Neck: Absent: JVD, Midline deformity, Tracheal deviation Abdomen: Present: Soft, Non-tender. Absent: Masses Vascular: Present: Normal capillary refill, Pulse, normal, Edema (Patient has chronic bilateral lower extremity edema.), Color/Temperature (Feet are warm to the touch. Her skin is pale. Patient has an area of erythema on the mid anterolateral aspect of the left calf.). Absent: Cyanosis, Surgical incisions, Amputation(s) Consult Discharge Plan - Plan Referrals: Nithin Hernandez [Primary Care Provider] -
[2018-05-02] MEDS: cefTRIAXone 2,000 MG in 0.9 % Sodium Chloride Mini Bag 100 ML IVPB SCH (23:23)
[2018-05-03 01:56] LABS: Hematocrit 27.3 % (35.3-44.9); Hemoglobin 8.7 g/dL (11.5-15.4); Mean Corpuscular HGB Conc 31.9 g/dL (31.6-35.5); Mean Corpuscular Hemoglobin 27.8 pg (28.0-33.3); Mean Corpuscular Volume 87.2 fL (83.0-100.0); Mean Platelet Volume 10.6 fL (9.4-12.4); Platelet Count 130 K/mcL (140-400); Red Blood Count 3.13 M/mcL (3.82-4.97); Red Cell Distribution Width 14.9 % (11.5-14.5)
[2018-05-03 02:11] LABS: BUN/Creatinine Ratio 18 (6-26); Blood Urea Nitrogen 14 mg/dL (8-23); Calcium 8.5 mg/dL (8.6-10.3); Carbon Dioxide 26 mEq/L (23-29); Chloride 105 mEq/L (98-107); Glucose 139 mg/dL (70-105); Osmolality,Calculated 287 (280-300); Potassium 3.9 mEq/L (3.5-5.1); Sodium 137 mEq/L (136-145); eGFR For Non-African Americans > 60 (> 60)
--- NOTE | 2018-05-03 09:12 | Internal Med Progress Note ---
<Tod Piper - Last Filed: 05/03/18 17:19> Hospitalist Progress Note - Encounter Date of Encounter: 05/03/18 - Exam Vitals: Temp Pulse Resp BP Pulse Ox 98.1 F 72 16 91/48 96 05/03/18 10:19 05/03/18 10:19 05/03/18 10:19 05/03/18 10:19 05/03/18 10:19 - Assessment and Plan (1) DVT (deep venous thrombosis) Current Visit: Yes Status: Acute (2) Left wrist pain Current Visit: Yes Status: Chronic (3) Cellulitis Current Visit: Yes Status: Acute (4) CAD (coronary artery disease) Current Visit: Yes Status: Chronic (5) UTI (urinary tract infection) Current Visit: Yes Status: Resolved (6) Atrial fibrillation Current Visit: Yes Status: Chronic (7) Pressure ulcer Current Visit: Yes Status: Acute (8) Diastolic congestive heart failure Current Visit: Yes Status: Chronic (9) Anemia Current Visit: Yes Status: Chronic (10) Morbid obesity Current Visit: Yes Status: Chronic - Time Spent with Patient Total time spent is greater than 50% in coordination of care (as documented) at patient's floor/unit and/or counseling patient: Internal Medicine: Result - Labs CBC & Chem 7: 05/03/18 01:39 05/03/18 01:39 Labs: Short CBC 05/03/18 Range/Units 01:39 WBC 5.6 (4.3-11.1) K/mcL Hgb 8.7 L (11.5-15.4) g/dL Hct 27.3 L (35.3-44.9) % Plt Count 130 L (140-400) K/mcL BMP 05/03/18 01:39 Sodium 137 Potassium 3.9 Chloride 105 Carbon Dioxide 26 BUN 14 Creatinine 0.79 Glucose 139 H Calcium 8.5 L - ABG Interpretation ABG results: PT/INR, D-dimer PT 15.3 Seconds (9.4-12.1) H 04/30/18 19:34 Consult Discharge Plan - Plan Referrals: Nithin Hernandez [Primary Care Provider] - - Attending Attestation I examined this patient and my medical decision-making was reviewed with the Resident Physician on 05/03/18. I agree with the documented findings, disposition and treatment plan as described except to the extent set forth below. Ms Golden is currently admitted for fluid overload and DVT. She remains moderate to high risk due to potential for worsening clinical status. Ms Golden is resting at this time. Not to have a IVC filter. Will try another PO anticoagulant. No CP or SOB. Exam alert Comfortable Mucus membranes dry Heart reg No wheeze Abd soft Edema present I/P 1. DVT - try Eliquis. Stop heparin 2. Edema Further diagnoses and plan as above If tolerates Eliquis anticipate d/c in next 24 - 48 hours. <Susan Hernandez N - Last Filed: 05/03/18 22:18> Hospitalist Progress Note - Encounter Date of Encounter: 05/03/18 Time of Encounter: 09:12 - Subjective Interval History: Ms. Golden is a 68-year old female who presented to the ED complaining of leg swelling that has progressively worsened since it started on Tuesday. She reportedly contacted her PCP, who recommended increasing her home lasix dose; however, she had no improvement of edema. She reported difficulty ambulating with home PT. She experienced further worsening of edema and development of focal pretibial erythema on her left lower extremity. Medical history is significant for prior cellulitis, urinary incontinence, recurrent UTIs, diastolic CHF, and atrial fibrillation. Urinalysis performed in the ED demonstrated positive nitrites, large leukocyte esterase, and WBC TNTC. She was admitted to the hospital and started on antibiotic therapy with vancomycin and ceftriaxone for presumed cellulitis and UTI. Patient's hospital course has been complicated by DVT. Venous doppler exam performed on 04/30 demonstrated acute thrombosis in the left posterior tibial vein. Patient was started on a heparin drip, but experienced hematuria and worsened bleeding from her sacral ulcer, and heparin was discontinued. She was evaluated by vascular surgery yesterday for potential IVC filter placement; however, it was advised that patient exhaust available pharmacological anticoagulation options first, particularly in light of her history of atrial fibrillation. On exam today, the patient expresses feeling anxious regarding her health, and seeks clarification and reassurrance regarding her prognosis and treatment plan. She was informed that her hemoglobin and hematocrit were being watched closely, which appeared to be of some comfort. She states that she feels her lower extremity edema has continued to improve. Nursing staff reported BP of 91/ 51 this morning, and patient's morning metoprolol was held secondary to concerns for hypotension. - Exam Vitals: Temp Pulse Resp BP Pulse Ox 97.1 F L 74 16 91/51 95 05/03/18 06:52 05/03/18 06:52 05/03/18 06:52 05/03/18 06:52 05/03/18 06:52 Exam: * General: Pleasant adult female resting in bed. She appears mildly anxious. She is alert and answers questions appropriately. * HEENT: Atraumatic and normocephalic. * Cardiovascular: Regular rate and rhythm. No murmurs, rubs, or gallops. * Respiratory: CTA bilaterally. Chest rises and falls symmetrically. * Gastrointestinal: Bowel sounds present x 4 quadrants. Abdomen is soft, nontender, and nondistended. * Extremities: Bilateral lower extremities are grossly edematous. Boundaries of initial cellulitis remain marked uncrossed. Patient reports continued subjective improvement. - Assessment and Plan (1) DVT (deep venous thrombosis) Current Visit: Yes Status: Acute Assessment and Plan: Patient was found to have an acute thrombosis of the left posterior tibial vein and underwent a trial of anticoagulation with heparin, during which she experienced hematuria. Vascular surgery evaluated her yesterday for consideration of IVC filter placement; however, with her history of atrial fibrillation, patient will require long-term pharmacologic anticoagulation. Vascular surgeon recommended exhaustion of anticoagulation options prior to IVC filter placement. Patient was started on Eliquis 5mg BID today. Will continue to monitor daily hemoglobin and hematocrit for signs of increased blood loss and anemia. If patient is able to tolerate Eliquis, expect she will be ready for discharge home over the next few days. (2) Cellulitis Current Visit: Yes Status: Acute Assessment and Plan: Patient presented to the ED complaining of left lower extremity pain and progressive swelling. She has a history of cellulitis. She did not appear to be septic on admission, with all vital signs WNL. She was started empirically on vancomycin and ceftriaxone, with MRSA nasal swab ordered. Cultures of her wound were obtained prior to IV antibiotics. Antibiotic therapy was deescalated, with discontinuation of vancomycin today in favor of doxycyline BID. Patient reports improvement in the appearance of her left leg. Erythema does not appear to spread past the initial boundary markings. Will continue current medication regimen pending results of microbial cultures. 05/03 - Patient has continued antibiotic therapy, and has completed 6 days of therapy, with an expected total course of 7 days. Lower extremity erythema appears improved, though she remains grossly edematous. Will continue current antibiotic regimen with continued monitoring of clinical status. (3) UTI (urinary tract infection) Current Visit: Yes Status: Resolved Assessment and Plan: Patient has a history of frequent UTIs. Urinalysis in the ED demonstrated small blood, positive nitrite, large leukocyte esterase, and WBC TNTC. Urine culture demonstrated >10,000 cfu; however, mixed species were noted and repeat culture was recommended. Patient was started on ceftriaxone 2000mg IVPD daily. She denies any urinary frequency, urgency, or dysuria. Will continue to treat suspected UTI due to urinalysis findings. 05/03 - Day 6/7 for antibiotic therapy wit ceftriaxone. Will complete planned course and reassess if urinary symptoms recur. (4) Pressure ulcer Current Visit: Yes Status: Acute Assessment and Plan: Patient has a pressure ulcer on her right buttock. She has had increased bleeding from this area while on anticoagulation. Appreciate wound care consultation and recommendations regarding this problem. (5) Atrial fibrillation Current Visit: Yes Status: Chronic Assessment and Plan: Patient has a history of atrial fibrillation with RVR. Following that diagnosis , she was started on xarelto; however, she does not currently take that medication 2/2 hematuria. Planned to restart xarelto; however, patient has a pressure ulcer on her buttock that is bleeding. Will hold xarelto at this time, with plan to start that therapy prior to discharge. 05/03 - Patient is currently undergoing a trial of Eliquis 5mg BID. Should she tolerate that medication well, she will be discharged with continued therapy. (6) CAD (coronary artery disease) Current Visit: Yes Status: Chronic Assessment and Plan: Continue home medications of metoprolol 25mg Q8H and aspirin 81mg daily. Patient denies any cardiac symptoms. (7) Diastolic congestive heart failure Current Visit: Yes Status: Chronic Assessment and Plan: Patient has a history of diastolic CHF. Her home medications include lasix 40mg BID. She has had worsening LE edema that was not improved with lasix. BNP on admission was 185. Will continue lasix diuresis and 1.5L fluid-restriction diet with strict I/Os and daily weights. She does not appear to be having an acute CHF exacerbation. 05/03 - Continue lasix 20mg BID and 1.5L fluid-restricted diet. (8) Anemia Current Visit: Yes Status: Chronic Assessment and Plan: Patient has had increased bleeding with anticoagulation. Hemoglobin and hematocrit monitored. H/H this morning of 8.7/27.3. Will continue to monitor. DVT Prophylaxis: Eliquis 5mg BID. - Time Spent with Patient Total time spent is greater than 50% in coordination of care (as documented) at patient's floor/unit and/or counseling patient: Internal Medicine: Result - Labs CBC & Chem 7: 05/03/18 01:39 05/03/18 01:39 Labs: Short CBC 05/02/18 05/03/18 Range/Units 11:17 01:39 WBC 5.6 (4.3-11.1) K/mcL Hgb 9.3 L 8.7 L (11.5-15.4) g/dL Hct 29.0 L 27.3 L (35.3-44.9) % Plt Count 130 L (140-400) K/mcL BMP 05/03/18 01:39 Sodium 137 Potassium 3.9 Chloride 105 Carbon Dioxide 26 BUN 14 Creatinine 0.79 Glucose 139 H Calcium 8.5 L - ABG Interpretation ABG results: PT/INR, D-dimer PT 15.3 Seconds (9.4-12.1) H 04/30/18 19:34 <Tod Piper - Last Filed: 05/03/18 17:19> (1) DVT (deep venous thrombosis) Qualifiers: DVT location: lower extremity Affected thrombotic vein of extremity: popliteal Chronicity: acute Laterality: left Qualified Code(s): I82.432 - Acute embolism and thrombosis of left popliteal vein (3) Cellulitis Qualifiers: Site of cellulitis: extremity Site of cellulitis of extremity: lower extremity Laterality: left Qualified Code(s): L03.116 - Cellulitis of left lower limb (4) CAD (coronary artery disease) Qualifiers: Coronary Disease-Associated Artery/Lesion type: [place] artery [place] vs. transplanted heart: [place] heart Associated angina: without angina Qualified Code(s): I25.10 - Atherosclerotic heart disease of [place] coronary artery without angina pectoris (5) UTI (urinary tract infection) Qualifiers: Urinary tract infection type: acute cystitis Hematuria presence: without hematuria Qualified Code(s): N30.00 - Acute cystitis without hematuria (6) Atrial fibrillation Qualifiers: Atrial fibrillation type: paroxysmal Qualified Code(s): I48.0 - Paroxysmal atrial fibrillation (7) Pressure ulcer Qualifiers: Pressure injury location: buttock Pressure injury stage: stage 2 Laterality : right Qualified Code(s): L89.312 - Pressure ulcer of right buttock, stage 2 (8) Diastolic congestive heart failure Qualifiers: Heart failure chronicity: chronic Qualified Code(s): I50.32 - Chronic diastolic (congestive) heart failure (9) Anemia Qualifiers: Anemia type: other cause Other causes of anemia: acute posthemorrhagic Qualified Code(s): D62 - Acute posthemorrhagic anemia <Susan Hernandez N - Last Filed: 05/03/18 22:18> (1) DVT (deep venous thrombosis) Qualifiers: DVT location: lower extremity Affected thrombotic vein of extremity: popliteal Chronicity: acute Laterality: left Qualified Code(s): I82.432 - Acute embolism and thrombosis of left popliteal vein (2) Cellulitis Qualifiers: Site of cellulitis: extremity Site of cellulitis of extremity: lower extremity Laterality: left Qualified Code(s): L03.116 - Cellulitis of left lower limb (3) UTI (urinary tract infection) Qualifiers: Urinary tract infection type: acute cystitis Hematuria presence: without hematuria Qualified Code(s): N30.00 - Acute cystitis without hematuria (4) Pressure ulcer Qualifiers: Pressure injury location: buttock Pressure injury stage: stage 2 Laterality : right Qualified Code(s): L89.312 - Pressure ulcer of right buttock, stage 2 (5) Atrial fibrillation Qualifiers: Atrial fibrillation type: paroxysmal Qualified Code(s): I48.0 - Paroxysmal atrial fibrillation (6) CAD (coronary artery disease) Qualifiers: Coronary Disease-Associated Artery/Lesion type: [place] artery [place] vs. transplanted heart: [place] heart Associated angina: without angina Qualified Code(s): I25.10 - Atherosclerotic heart disease of [place] coronary artery without angina pectoris (7) Diastolic congestive heart failure Qualifiers: Heart failure chronicity: chronic Qualified Code(s): I50.32 - Chronic diastolic (congestive) heart failure (8) Anemia Qualifiers: Anemia type: other cause Other causes of anemia: acute posthemorrhagic Qualified Code(s): D62 - Acute posthemorrhagic anemia
[2018-05-03] MEDS: Aspirin 81 MG TAB.CHEW PO SCH (09:27)
[2018-05-03] MEDS: Doxycycline 100 MG CAPSULE PO SCH ×2 (09:27→20:26)
[2018-05-03] MEDS: Nystatin SUSP 5 ML UD.LIQ PO SCH ×4 (09:28→20:26)
[2018-05-03] MEDS: Fluticasone Propionate Nasal 50 MCG/SPRAY BOTTLE NS SCH (09:32)
[2018-05-03] MEDS: Furosemide 20 MG TABLET PO SCH ×3 (09:54→16:09)
[2018-05-03] MEDS: Heparin 25,000 UNIT/500 ML D5W 25,000 UNIT/500 ML BAG IVC SCH (13:44)
[2018-05-03] MEDS: Apixaban 5 MG TABLET PO SCH ×2 (16:09→20:25)
--- NOTE | 2018-05-03 21:42 | Vascular/Endovas Progress Note ---
Date of Encounter: 05/03/18 Time of Encounter: 18:15 - Assessment and plan (1) Supraventricular tachycardia Current Visit: Yes Status: Chronic Patient has a chronic history of atrial fibrillation. She has been treated in the past with Xarleto. It is unclear why this has been stopped at this time. She did have a sacral decubitus and apparently there was some bleeding at one point. It is clear that long-term the patient will need to be back on anticoagulation therapy for A. fib. (2) Diastolic congestive heart failure Current Visit: Yes Status: Chronic Patient has a history of congestive heart failure. She states that in the past 2 years she has been pretty much at bedrest Qualifiers: Qualified Code(s): I50.32 - Chronic diastolic (congestive) heart failure (3) DVT (deep venous thrombosis) Current Visit: Yes Status: Acute Patient has a distal posterior tibial vein DVT in the left lower extremity. I'm questioning whether this is actually a subacute process as she had had a DVT diagnosed at the [facility] last month. It is unknown whether this was the vein involved or there was another vein. She was not placed on anticoagulation at that time. The concerns about the hematuria that were raised earlier may have now been relieved because on my exam today through her Sanchez catheter she has clear yellow urine without sign of clots or jewel blood. The patient has multiple ongoing chronic medical problems. 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 However, I do not think the patient needs an IVC filter at at this time. I recommended that she be given another trial of anticoagulation. She is certainly going to need this long-term for her cardiac arrhythmias. I reviewed this in detail with the patient. All questions were answered. It was explained that if she has future problems that necessitate cessation of anticoagulation therapy that the IVC filter may be placed at that time. Patient's lower extremity status remains stable. There appears to be no exacerbation of the DVT. Patient will be treated with anticoagulation. IVC filter is on hold area Qualifiers: Qualified Code(s): I82.432 - Acute embolism and thrombosis of left popliteal vein - Subjective Interval history: The patient has no new complaints. She states she's had an uneventful day. Overall feeling stable. Denies any bleeding from the mouth or lips. Denies any new changes or symptoms in the lower extremities. Vital Signs, Last 4 Hours Temp Pulse Resp BP Pulse Ox 05/03/18 19:38 98.4 F 75 14 119/71 97 - Physical Examination General: Present: Conversant, No Apparent Distress, Other (Urine in the Sanchez catheter drainage system is yellow and clear. No signs of bleeding.) HEENT: Present: Atraumatic Neuro: Present: Alert and responsive, No focal deficits noted, Cranial nerves grossly intact Vascular: Present: Other (Lower extremities remained stable in size. They have chronic edema and obesity. There is no worsening of the skin changes of the left calf anterolateral area.) Results 05/03/18 01:39 05/03/18 01:39 Lab Results, Last 24 hours 05/03/18 05/03/18 01:39 01:39 WBC 5.6 Hgb 8.7 L Hct 27.3 L Plt Count 130 L Sodium 137 Potassium 3.9 Chloride 105 Carbon Dioxide 26 BUN 14 Creatinine 0.79 Glucose 139 H Calcium 8.5 L Consult Discharge Plan - Plan Referrals: Nithin Hernandez [Primary Care Provider] -
[2018-05-04] MEDS: Ondansetron 4 MG/2 ML VIAL IVP PRN (00:42)
[2018-05-04 07:00] LABS: BUN/Creatinine Ratio 22 (6-26); Blood Urea Nitrogen 16 mg/dL (8-23); Carbon Dioxide 24 mEq/L (23-29); Chloride 107 mEq/L (98-107); Glucose 125 mg/dL (70-105); Osmolality,Calculated 289 (280-300); Potassium 4.1 mEq/L (3.5-5.1); Sodium 138 mEq/L (136-145); eGFR For Non-African Americans > 60 (> 60)
[2018-05-04 08:16] LABS: Basophils % 0.6 %; Eosinophils # 0.5 K/mcL (0.0-0.6); Eosinophils % 7.1 %; Hematocrit 27.5 % (35.3-44.9); Hemoglobin 8.8 g/dL (11.5-15.4); Immature Granulocytes % 0.2 % (0-4); Lymphocytes % 30.1 %; Mean Corpuscular Volume 87.6 fL (83.0-100.0); Mean Platelet Volume 11.1 fL (9.4-12.4); Monocytes # 0.5 K/mcL (0.0-1.3); Monocytes % 7.8 %; Neutrophils # 3.6 K/mcL (1.6-8.9); Platelet Count 153 K/mcL (140-400); Red Blood Count 3.14 M/mcL (3.82-4.97); Red Cell Distribution Width 14.9 % (11.5-14.5); Segmented Neutrophils % 54.2 %
[2018-05-04 08:27] LABS: Calcium 8.6 mg/dL (8.6-10.3)
[2018-05-04] MEDS: Apixaban 5 MG TABLET PO SCH (08:51)
[2018-05-04] MEDS: Furosemide 20 MG TABLET PO SCH ×2 (08:51→17:41)
[2018-05-04] MEDS: Nystatin SUSP 5 ML UD.LIQ PO SCH ×3 (08:51→17:41)
[2018-05-04] MEDS: Aspirin 81 MG TAB.CHEW PO SCH (08:51)
[2018-05-04] MEDS: Fluticasone Propionate Nasal 50 MCG/SPRAY BOTTLE NS SCH (08:51)
--- NOTE | 2018-05-04 09:48 | Discharge Summary ---
<Tod Piper - Last Filed: 05/04/18 17:19> Orders not resulted at time of discharge: Pending orders 05/02/18 15:27 CL IVC Filter [CL] Routine Date of Encounter: 05/04/18 - Discharge Diagnosis (1) CAD (coronary artery disease) Priority: Secondary Status: Chronic Qualifiers: Coronary Disease-Associated Artery/Lesion type: [place] artery [place] vs. transplanted heart: [place] heart Associated angina: without angina Qualified Code(s): I25.10 - Atherosclerotic heart disease of [place] coronary artery without angina pectoris (2) DVT (deep venous thrombosis) Priority: Secondary Status: Acute Qualifiers: DVT location: lower extremity Affected thrombotic vein of extremity: popliteal Chronicity: acute Laterality: left Qualified Code(s): I82.432 - Acute embolism and thrombosis of left popliteal vein (3) UTI (urinary tract infection) Priority: Secondary Status: Resolved Qualifiers: Urinary tract infection type: acute cystitis Hematuria presence: without hematuria Qualified Code(s): N30.00 - Acute cystitis without hematuria (4) Atrial fibrillation Priority: Secondary Status: Chronic Qualifiers: Atrial fibrillation type: paroxysmal Qualified Code(s): I48.0 - Paroxysmal atrial fibrillation (5) Cellulitis Priority: Primary Status: Acute Qualifiers: Site of cellulitis: extremity Site of cellulitis of extremity: lower extremity Laterality: left Qualified Code(s): L03.116 - Cellulitis of left lower limb (6) Pressure ulcer Priority: Secondary Status: Acute Qualifiers: Pressure injury location: buttock Pressure injury stage: stage 2 Laterality: right Qualified Code(s): L89.312 - Pressure ulcer of right buttock , stage 2 (7) Diastolic congestive heart failure Priority: Secondary Status: Chronic Qualifiers: Heart failure chronicity: chronic Qualified Code(s): I50.32 - Chronic diastolic (congestive) heart failure (8) Anemia Priority: Secondary Status: Chronic Qualifiers: Anemia type: other cause Other causes of anemia: acute posthemorrhagic Qualified Code(s): D62 - Acute posthemorrhagic anemia Hospital course: Ms. Golden is a 68 year old female - Time Spent with Patient Total time spent providing and/or coordinating discharge services: 38min - Discharge Medications Prescriptions: Apixaban [Eliquis] 5 mg PO BID #60 tablet Home Medications: Aspirin Enteric Coated [Aspirin EC] 81 mg PO DAILY 04/27/18 [History] Furosemide [Lasix] 40 mg PO BID 04/27/18 [History] Metoprolol [Lopressor] 12.5 mg PO BID 04/27/18 [History] Non-Formulary Medication [Non-Formulary Medication] 1 each 05/02/18 [History] Apixaban [Eliquis] 5 mg PO BID #60 tablet 05/04/18 [Rx] Allergies/Adverse Reactions: 3 Allergy/AdvReac Type Severity Reaction Status Date / Time shellfish derived Allergy Severe Anaphylaxis Verified 01/30/18 09:11 levofloxacin [From Levaquin] Allergy Hives Verified 01/30/18 09:11 Penicillins Allergy Blister Verified 01/30/18 09:11 prednisone Allergy See Verified 01/30/18 09:11 Comments Sulfa (Sulfonamide Allergy Hives Verified 01/30/18 09:11 Antibiotics) egg AdvReac Severe Throat Verified 01/30/18 09:11 swelling nitrofurantoin AdvReac Severe Bruising Verified 01/30/18 09:11 [From Macrobid] on arms Date of admission: 04/28/18 13:20 Primary care physician: Nithin Hernandez Consults: 05/02/18 14:59 Consult to Vascular Surgery [CONS] Routine Consulting Provider: Vascular Surgery [place] Reason for Consult: dvt of L posterior tibial vein, hematuria and decubitous ulcer bleed on heparin (.40 on hep activity), hx bleed on xarelto; H&H currently stable in 9s; consult for consideration of IVC filter placement; thank you Call Completed: Yes 05/04/18 07:36 Consult to Women'S Studies Professor [CONS] Routine Reason for SW Consult: Pt has Medicare A&B; appreciate if we can determine her monthly out of pocket for Eliquis 5 BID, she bleeds on Xarelto x2 episodes. Thank you. - Constitutional Vitals: Temp Pulse Resp BP Pulse Ox 97.3 F L 79 17 95/58 95 05/04/18 14:34 05/04/18 14:34 05/04/18 14:34 05/04/18 14:34 05/04/18 14:34 - Patient Status Disposition: Home, Self-Care Condition: Fair - Discharge Instructions Follow Up With: Nithin Hernandez [Primary Care Provider] - (Web request entered. Office will call with appointment) Forms: ED Satisfaction Letter - Attending Attestation I examined this patient and my medical decision-making was reviewed with the Resident Physician on 05/04/18. I agree with the documented findings, disposition and treatment plan as described except to the extent set forth below. Ms Golden has been admitted for volume overload. She has been diuresed with improvement. She was also noted to have cellulitis of her L leg and L popliteal DVT. She had some bleeding with Xarelto and heparin but has tolerated Eliquis. She is now afebrile and feels well. She is ready for discharge home. Exam alert Comfortable Mucus membranes dry Heart distant No wheeze abd soft Erythema L leg nearly gone. Skin dry Plan D/C home today on Eliquis Further diagnoses and plan as above. <Linus Nelson - Last Filed: 05/04/18 19:11> - NOTES TO OUTPATIENT PROVIDER Notes to Outpatient Provider: Pt to continue Eliquis 5mg BID for acute dvt, she is also on rate control with Lopressor for her afib hx. Orders not resulted at time of discharge: Pending orders 05/02/18 15:27 CL IVC Filter [CL] Routine 05/04/18 09:40 Heparin anti-factor XA UFH [COAG] Timed Date of Encounter: 05/04/18 Time of Encounter: 10:00 - Discharge Diagnosis (1) Cellulitis Priority: Primary Status: Acute Qualifiers: Site of cellulitis: extremity Site of cellulitis of extremity: lower extremity Laterality: left Qualified Code(s): L03.116 - Cellulitis of left lower limb (2) DVT (deep venous thrombosis) Priority: Secondary Status: Acute Qualifiers: DVT location: lower extremity Affected thrombotic vein of extremity: popliteal Chronicity: acute Laterality: left Qualified Code(s): I82.432 - Acute embolism and thrombosis of left popliteal vein (3) Hematuria Priority: Secondary Status: Acute Qualifiers: Hematuria type: gross Qualified Code(s): R31.0 - Gross hematuria (4) Coronary artery disease Priority: Secondary Status: Chronic Qualifiers: Coronary Disease-Associated Artery/Lesion type: [place] artery [place] vs. transplanted heart: [place] heart Associated angina: angina presence unspecified Qualified Code(s): I25.10 - Atherosclerotic heart disease of [place] coronary artery without angina pectoris (5) Atrial fibrillation Priority: Secondary Status: Chronic Qualifiers: Atrial fibrillation type: paroxysmal Qualified Code(s): I48.0 - Paroxysmal atrial fibrillation (6) Anemia Status: Acute Qualifiers: Anemia type: unspecified type Qualified Code(s): D64.9 - Anemia, unspecified (7) Pressure ulcer Priority: Secondary Status: Acute Qualifiers: Pressure injury location: buttock Pressure injury stage: stage 2 Laterality: right Qualified Code(s): L89.312 - Pressure ulcer of right buttock , stage 2 (8) Diastolic congestive heart failure Priority: Secondary Status: Chronic Qualifiers: Heart failure chronicity: chronic Qualified Code(s): I50.32 - Chronic diastolic (congestive) heart failure (9) Morbid obesity Status: Chronic Hospital course: 68F admitted for bilateral lower leg swelling and possible cellulitis, received rocephin and doxycycline for LLE cellulitis. Hx afib, echo shows no structural changes, non-valvulat afib (mid 2016). Doppler revealed left posterior tibial vein DVT, patient was started on heparin drip. 05/01 developed hematuria/ulcer bleed, heparin discontinued (pt did have history of bleed on xarelto as well), vascular consulted for IVC stent placement consideration; opted for no procedure , trial of Eliquis. Patient discharged on maintenance dose Eliquis at 5mg bid. Cellulitis margins greatly improved, no fever, no wt ct. She is to continue her rate controle with Lopressor and her new anticoag with Eliquis and follow-up with her PCP within the week. She is referred to with PT/OT+nursing. Discharge discussed with: patient, family - Time Spent with Patient Total time spent providing and/or coordinating discharge services: Greater than 30 minutes Date of admission: 04/28/18 13:20 Primary care physician: Nithin Hernandez Consults: 05/02/18 14:59 Consult to Vascular Surgery [CONS] Routine Consulting Provider: Vascular Surgery [place] Reason for Consult: dvt of L posterior tibial vein, hematuria and decubitous ulcer bleed on heparin (.40 on hep activity), hx bleed on xarelto; H&H currently stable in 9s; consult for consideration of IVC filter placement; thank you Call Completed: Yes 05/04/18 07:36 Consult to Women'S Studies Professor [CONS] Routine Reason for SW Consult: Pt has Medicare A&B; appreciate if we can determine her monthly out of pocket for Eliquis 5 BID, she bleeds on Xarelto x2 episodes. Thank you. - Constitutional Vitals: Temp Pulse Resp BP Pulse Ox 98.5 F 75 16 94/60 94 05/04/18 05:03 05/04/18 05:03 05/04/18 05:03 05/04/18 05:03 05/04/18 05:03 Exam: General: Pleasant adult female resting in bed. She is alert and answers questions appropriately. HEENT: Atraumatic and normocephalic. Cardiovascular: Regular rate and rhythm. No murmurs, rubs, or gallops. Respiratory: CTA bilaterally. Chest rises and falls symmetrically. Gastrointestinal: Bowel sounds present x 4 quadrants. Abdomen is soft, nontender , and nondistended. Extremities: Bilateral lower extremities are edematous. Boundaries of initial cellulitis remain marked uncrossed. Patient reports continued subjective improvement. - Patient Status Functional capacity at discharge: uses cane/walker Overall status at discharge: patient is progressing back to baseline - Diet and Activity Activity: increase activity as tolerated Diet: advance to your usual diet
[2018-05-04 14:37] VITALS: BP 95/58
--- NOTE | 2018-05-04 15:19 | Physician Discharge Referral ---
Home Health/Hosp Referral Info Transfer to: Home Health Provider in Charge Post Discharge: PCP - Diagnosis (1) DVT (deep venous thrombosis) Status: Acute (2) Hematuria Status: Acute (3) UTI (urinary tract infection) Status: Resolved (4) Coronary artery disease Status: Chronic (5) Atrial fibrillation Status: Chronic (6) Anemia Status: Acute (7) Cellulitis Status: Acute (8) Pressure ulcer Status: Acute (9) Diastolic congestive heart failure Status: Chronic (10) Morbid obesity Status: Chronic - Respiratory Orders Smoking Cessation: Smoking cessation has been advised. For more information, call the [place] Tobacco Quit Line at 1-658-SXCV-NOW. - Services Needed Following services are medically necessary services: Nursing, Home Health Aide, Physical Therapy, Occupational Therapy - Transfer Medications Home Medications: Aspirin Enteric Coated [Aspirin EC] 81 mg PO DAILY 04/27/18 [History] Furosemide [Lasix] 40 mg PO BID 04/27/18 [History] Metoprolol [Lopressor] 12.5 mg PO BID 04/27/18 [History] Non-Formulary Medication [Non-Formulary Medication] 1 each 05/02/18 [History] Allergies/Adverse Reactions: 3 Allergy/AdvReac Type Severity Reaction Status Date / Time shellfish derived Allergy Severe Anaphylaxis Verified 01/30/18 09:11 levofloxacin [From Levaquin] Allergy Hives Verified 01/30/18 09:11 Penicillins Allergy Blister Verified 01/30/18 09:11 prednisone Allergy See Verified 01/30/18 09:11 Comments Sulfa (Sulfonamide Allergy Hives Verified 01/30/18 09:11 Antibiotics) egg AdvReac Severe Throat Verified 01/30/18 09:11 swelling nitrofurantoin AdvReac Severe Bruising Verified 01/30/18 09:11 [From Macrobid] on arms Certification: Further, I certify that my clinical findings support that this patient is homebound (i.e. absences from home require considerable and taxing effort and are for medical reasons or congregational services or infrequently or short duration when for other reasons) because: Homebound Reason: Leaving home requires considerable and taxing effort due to condition Attestation: My signature below is to certify that this patient is under my care and that I, or nurse practitioner, or a physician's assistant press operator working with me, has a face-to -face encounter with this patient.
== END 2018-05-04 18:18 | disposition home or self-care (01) | DRG 603 ==
LOC: 3ANU 22:16 → EMEROOARM 22:16 → 3ANU 04-27 00:59 → SUATTDRO 04-27 01:08
PROVIDERS: ADMIT Internal Medicine; ATTEND Internal Medicine

== ENCOUNTER 2018-05-17 12:25 | Inpatient (IN) ==
[2018-05-17] MEDS ORDERED: Ipratropium/Albuterol Neb 3 ML IH ONE (12:48)
[2018-05-17] MEDS ORDERED: 0.9 % Sodium Chloride 500 ML IVC ONE (12:48)
[2018-05-17] MEDS ORDERED: Isovue-370 500 ML INFUS..BTL IV ONE (12:49)
[2018-05-17 13:10] LABS: Basophils % 0.2 %; Eosinophils # 0.6 K/mcL (0.0-0.6); Eosinophils % 7.4 %; Hematocrit 30.5 % (35.3-44.9); Hemoglobin 9.5 g/dL (11.5-15.4); Immature Granulocytes % 0.1 % (0-4); Lymphocytes # 1.8 K/mcL (0.6-4.6); Lymphocytes % 22.3 %; Mean Corpuscular HGB Conc 31.1 g/dL (31.6-35.5); Mean Corpuscular Hemoglobin 26.8 pg (28.0-33.3); Mean Corpuscular Volume 85.9 fL (83.0-100.0); Mean Platelet Volume 11.3 fL (9.4-12.4); Monocytes # 0.6 K/mcL (0.0-1.3); Monocytes % 7.9 %; Platelet Count 145 K/mcL (140-400); Red Blood Count 3.55 M/mcL (3.82-4.97); Segmented Neutrophils % 62.1 %
[2018-05-17 13:16] LABS: INR 2.1; Prothrombin Time 24.2 Seconds (9.4-12.1)
[2018-05-17 13:18] LABS: Activated Partial Thrombo Time 40.7 Seconds (26.0-36.0)
--- NOTE | 2018-05-17 14:02 | Emergency Department Note ---
Disposition Clinical Impression: CHF (congestive heart failure), Colitis, UTI (urinary tract infection), Dehydration Disposition: Admitted As Inpatient Condition: Fair Time of Disposition: 17:10 General Adult HPI - General Chief complaint: ED Nausea/Vomiting/Diarrhea Stated complaint: nausea diarrhea Time Seen by Provider: 05/17/18 12:39 Source: patient, EMS Mode of arrival: EMS Limitations: no limitations Nursing Notes Reviewed: Yes Vital Signs Reviewed: Yes - History of Present Illness HPI Narrative: 68-year-old female with complex past medical history including COPD, coronary artery disease, DVT of the left lower extremity currently on Eliquis presenting to the emergency department with chief complaint of nausea and diarrhea. Patient states over the past few days she has had increased nausea and multiple episodes of nonbloody loose stool. Patient states she has taken Imodium at home with moderate help but still having 5 loose, watery bowel movements per day. Patient discloses some nausea but has not had any vomiting. Patient states she does have a history of CHF and has decreased her oral intake of fluids due to concern for bilateral lower extremity swelling that she has noticed over the past 3 weeks. Patient denies any chest pain, shortness of breath. Pain Scale: 2 - Related Data Home Medications Medication Instructions Recorded Confirmed Aspirin Enteric Coated [Aspirin EC] 81 mg PO DAILY 04/27/18 04/27/18 Metoprolol [Lopressor] 12.5 mg PO BID 04/27/18 05/02/18 Furosemide [Lasix] 20 mg PO BID 05/17/18 05/17/18 HYDROcodone/Acet 10/325 mg [[place] 1 tab PO BID PRN 05/17/18 05/17/18 10-325 mg] Previous Rx's Medication Instructions Recorded Apixaban [Eliquis] 5 mg PO BID #60 tablet 05/04/18 Allergies Allergy/AdvReac Type Severity Reaction Status Date / Time shellfish derived Allergy Severe Anaphylaxis Verified 05/17/18 12:47 levofloxacin [From Levaquin] Allergy Hives Verified 05/17/18 12:47 Penicillins Allergy Blister Verified 05/17/18 12:47 prednisone Allergy See Verified 05/17/18 12:47 Comments Sulfa (Sulfonamide Allergy Hives Verified 05/17/18 12:47 Antibiotics) egg AdvReac Severe Throat Verified 05/17/18 12:47 swelling nitrofurantoin AdvReac Severe Bruising Verified 05/17/18 12:47 [From Macrobid] on arms All systems ED: reviewed and negative except as stated. Constitutional: Reports: chills. Denies: fever Eyes: Reports: as per HPI ENT ED: Reports: as per HPI Cardiovascular: Denies: chest pain, palpitations, dyspnea on exertion Respiratory: Denies: cough, dyspnea Gastrointestinal: Reports: abdominal pain, nausea, diarrhea Genitourinary: Reports: as per HPI Musculoskeletal: Reports: as per HPI Integumentary: Reports: as per HPI Neurological: Denies: numbness, paresthesias Psychiatric: Reports: as per HPI Endocrine: Reports: as per HPI Hematological/Lymphatic: Reports: as per HPI Allergic/Immunologic: Reports: as per HPI Past Medical History - Past Medical History Attestation: Yes The following information was validated with the patient. Medical history: Reports: non-contributory, asthma, atrial fibrillation, CHF, COPD, coronary artery disease, CVA, kidney stones Surgical history: Reports: angioplasty/stent, cholecystectomy, hysterectomy Psychiatric history: Reports: anxiety, depression, panic disorder - Social History Smoking Status: Never smoker Smokeless Tobacco Status: No Alcohol use: Reports: none Drug use: Reports: none Physical Exam - General Limitations: no limitations General appearance: alert, in no apparent distress - Head Head exam: atraumatic, normocephalic, normal inspection - Eye Eye exam: Present: normal appearance. Absent: scleral icterus, conjunctival injection - ENT ENT exam: mucous membranes dry - Neck Neck exam: Present: normal inspection, full ROM. Absent: tenderness, meningismus - Chest Chest inspection: Present: normal inspection, symmetric chest wall rise. Absent : tenderness, rash - Respiratory Respiratory exam: Present: wheezes (Mild expiratory wheezing throughout) - Cardiovascular Cardiovascular exam: Present: regular rate, normal rhythm, normal heart sounds - Abdominal Exam Abdominal exam: Present: soft, tenderness. Absent: distention, guarding, rebound, rigidity Abdominal tenderness: Present: LLQ, moderate - Extremities Exam Extremities exam: Present: full ROM - Neurological Exam Neurological exam: Present: alert, oriented X3 - Psychiatric Psychiatric exam: Present: normal affect, normal mood - Skin Skin exam: Present: warm Course Course Narrative: 60-year-old female presenting with nausea and diarrhea. Physical exam shows dry mucous membranes along with moderate tenderness to palpation of the left lower quadrant of the abdomen. Concern for sepsis of an intra-abdominal pathology at this time. Patient is alert and oriented 3 in the room with stable vital signs. We will cautiously fluid resuscitated her due to her CHF by providing her with 500 mL of fluid. We will also obtain basic laboratory analysis, blood cultures, lactic acid and a CT of the abdomen and pelvis with IV contrast. Disposition most likely admission but pending results. Patient agrees with this plan. - Reevaluation(s) Reevaluation #1: Patient's laboratory analysis shows chronic anemia otherwise unchanged from baseline. Urinalysis shows urinary tract infection. CT of the abdomen and pelvis concerning for moderate to severe colitis. Due to patient's severe dehydrated state along with congestive heart failure history and chest x-ray concerning for fluid overload, our ability to fluid hydrate the patient is minimal. We will plan to admit the patient for further evaluation, fluid resuscitation and antibiotic treatment. Patient is alert and oriented 3 in room with stable vital signs. Patient agrees with this plan. We will add Flagyl and Rocephin for antibiotic coverage. I spoke with the hospitalist functional tester Dr. Priest who agrees to accept the patient at this time. Vital Signs Temperature 99.3 F 05/17/18 12:39 Pulse Rate 70 05/17/18 12:39 Respiratory Rate 16 05/17/18 12:39 Blood Pressure 102/54 05/17/18 12:39 O2 Sat by Pulse Oximetry 98 05/17/18 12:39 Temperature 99.3 F 05/17/18 12:39 Pulse Rate 77 05/17/18 16:00 Respiratory Rate 16 05/17/18 16:00 Blood Pressure 114/54 05/17/18 16:00 O2 Sat by Pulse Oximetry 97 05/17/18 16:00 Oxygen Delivery Oxygen Delivery Room Air Medical Decision Making - Lab Data Result diagrams: 05/17/18 12:55 05/17/18 13:52 Lab Results 05/17/18 05/17/18 05/17/18 Range/Units 12:55 12:55 12:55 WBC 8.1 (4.3-11.1) K/mcL RBC 3.55 L (3.82-4.97) M/mcL Hgb 9.5 L (11.5-15.4) g/dL Hct 30.5 L (35.3-44.9) % MCV 85.9 (83.0-100.0) fL MCH 26.8 L (28.0-33.3) pg MCHC 31.1 L (31.6-35.5) g/dL RDW 15.0 H (11.5-14.5) % Plt Count 145 (140-400) K/mcL MPV 11.3 (9.4-12.4) fL Immature Gran % 0.1 (0-4) % Seg Neutrophils % 62.1 % Lymphocytes % 22.3 % Monocytes % 7.9 % Eosinophils % 7.4 % Basophils % 0.2 % Neutrophils # 5.0 (1.6-8.9) K/mcL Lymphocytes # 1.8 (0.6-4.6) K/mcL Monocytes # 0.6 (0.0-1.3) K/mcL Eosinophils # 0.6 (0.0-0.6) K/mcL Basophils # 0.0 (0.0-0.2) K/mcL PT 24.2 H (9.4-12.1) Seconds INR 2.1 APTT 40.7 H (26.0-36.0) Seconds Sodium Cancelled Potassium Cancelled Chloride Cancelled Carbon Dioxide Cancelled BUN Cancelled Creatinine Cancelled Est GFR ( Amer) Cancelled Est GFR (Non-Af Amer) Cancelled BUN/Creatinine Ratio Cancelled Glucose Cancelled Calculated Osmolality Cancelled Lactic Acid (0.5-2.2) mmol/L Calcium Cancelled Magnesium Cancelled Total Bilirubin Cancelled Direct Bilirubin Cancelled Indirect Bilirubin Cancelled AST Cancelled ALT Cancelled Alkaline Phosphatase Cancelled Troponin I < 0.03 (< 0.04) ng/mL B-Natriuretic Peptide (Less than 100) pg/mL Serum Total Protein Cancelled Albumin Cancelled Globulin Cancelled Albumin/Globulin Ratio Cancelled Urine Color (Yellow) Urine Clarity (Clear) Urine pH (5.0-8.0) pH Units Ur Specific [place] (1.010-1.025) Urine Protein (Neg-Trace) mg/dL Urine Glucose (UA) (Normal) mg/dL Urine Ketones (Negative) mg/dL Urine Blood (Negative) Urine Nitrite (Negative) Urine Bilirubin (Negative) Urine Urobilinogen (Normal) mg/dL Ur Leukocyte Esterase (Negative) Urine Microscopic RBC (0-3) per hpf Urine Microscopic WBC (0-3) per hpf Ur Squamous Epith Cells (None-Few) per lpf Urine Bacteria (None-Few) per hpf Hyaline Casts (None-Few) per lpf Urine Yeast Ur Culture Indicated? (NO) Specimen Rejected 05/17/18 05/17/18 05/17/18 Range/Units 13:11 13:11 13:36 WBC (4.3-11.1) K/mcL RBC (3.82-4.97) M/mcL Hgb (11.5-15.4) g/dL Hct (35.3-44.9) % MCV (83.0-100.0) fL MCH (28.0-33.3) pg MCHC (31.6-35.5) g/dL RDW (11.5-14.5) % Plt Count (140-400) K/mcL MPV (9.4-12.4) fL Immature Gran % (0-4) % Seg Neutrophils % % Lymphocytes % % Monocytes % % Eosinophils % % Basophils % % Neutrophils # (1.6-8.9) K/mcL Lymphocytes # (0.6-4.6) K/mcL Monocytes # (0.0-1.3) K/mcL Eosinophils # (0.0-0.6) K/mcL Basophils # (0.0-0.2) K/mcL PT (9.4-12.1) Seconds INR APTT (26.0-36.0) Seconds Sodium Potassium Chloride Carbon Dioxide BUN Creatinine Est GFR ( Amer) Est GFR (Non-Af Amer) BUN/Creatinine Ratio Glucose Calculated Osmolality Lactic Acid 1.3 (0.5-2.2) mmol/L Calcium Magnesium Total Bilirubin Direct Bilirubin Indirect Bilirubin AST ALT Alkaline Phosphatase Troponin I (< 0.04) ng/mL B-Natriuretic Peptide 181 H (Less than 100) pg/mL Serum Total Protein Albumin Globulin Albumin/Globulin Ratio Urine Color (Yellow) Urine Clarity (Clear) Urine pH (5.0-8.0) pH Units Ur Specific [place] (1.010-1.025) Urine Protein (Neg-Trace) mg/dL Urine Glucose (UA) (Normal) mg/dL Urine Ketones (Negative) mg/dL Urine Blood (Negative) Urine Nitrite (Negative) Urine Bilirubin (Negative) Urine Urobilinogen (Normal) mg/dL Ur Leukocyte Esterase (Negative) Urine Microscopic RBC (0-3) per hpf Urine Microscopic WBC (0-3) per hpf Ur Squamous Epith Cells (None-Few) per lpf Urine Bacteria (None-Few) per hpf Hyaline Casts (None-Few) per lpf Urine Yeast Ur Culture Indicated? (NO) Specimen Rejected Hemolyzed 05/17/18 05/17/18 Range/Units 13:52 14:30 WBC (4.3-11.1) K/mcL RBC (3.82-4.97) M/mcL Hgb (11.5-15.4) g/dL Hct (35.3-44.9) % MCV (83.0-100.0) fL MCH (28.0-33.3) pg MCHC (31.6-35.5) g/dL RDW (11.5-14.5) % Plt Count (140-400) K/mcL MPV (9.4-12.4) fL Immature Gran % (0-4) % Seg Neutrophils % % Lymphocytes % % Monocytes % % Eosinophils % % Basophils % % Neutrophils # (1.6-8.9) K/mcL Lymphocytes # (0.6-4.6) K/mcL Monocytes # (0.0-1.3) K/mcL Eosinophils # (0.0-0.6) K/mcL Basophils # (0.0-0.2) K/mcL PT (9.4-12.1) Seconds INR APTT (26.0-36.0) Seconds Sodium 139 Potassium 3.3 L Chloride 110 H Carbon Dioxide 22 L BUN 12 Creatinine 0.76 Est GFR ( Amer) > 60 Est GFR (Non-Af Amer) > 60 BUN/Creatinine Ratio 16 Glucose 123 H Calculated Osmolality 289 Lactic Acid (0.5-2.2) mmol/L Calcium 8.5 L Magnesium 1.7 Total Bilirubin 1.1 H Direct Bilirubin 0.3 H Indirect Bilirubin 0.8 AST 26 ALT 13 Alkaline Phosphatase 122 H Troponin I (< 0.04) ng/mL B-Natriuretic Peptide (Less than 100) pg/mL Serum Total Protein 7.1 Albumin 2.8 L Globulin 4.3 H Albumin/Globulin Ratio 0.7 L Urine Color Yellow (Yellow) Urine Clarity Turbid A (Clear) Urine pH 7.0 (5.0-8.0) pH Units Ur Specific [place] 1.008 L (1.010-1.025) Urine Protein 100 H (Neg-Trace) mg/dL Urine Glucose (UA) Normal (Normal) mg/dL Urine Ketones Negative (Negative) mg/dL Urine Blood Moderate H (Negative) Urine Nitrite Positive A (Negative) Urine Bilirubin Negative (Negative) Urine Urobilinogen Normal (Normal) mg/dL Ur Leukocyte Esterase Large H (Negative) Urine Microscopic RBC 5-15 H (0-3) per hpf Urine Microscopic WBC TNTC H (0-3) per hpf Ur Squamous Epith Cells Moderate H (None-Few) per lpf Urine Bacteria Many H (None-Few) per hpf Hyaline Casts None Seen (None-Few) per lpf Urine Yeast Test Not Performed Ur Culture Indicated? YES A (NO) Specimen Rejected - EKG Data EKG #1 EKG attestation: Yes I reviewed and interpreted this EKG. EKG results narrative: Sinus rhythm. 67 beats for minute. IA interval 171, tears 94, QTC 460. No sign of acute ST segment elevation or ischemia. Compared to previous EKG completed on 04/26/2018 no significant changes noted Attestation Statement - Attestation Attestation: I, Jesse Ludwig DO, examined this patient [id number] and my medical decision-making was reviewed with Dr. Katie Driver, Resident Physician. I agree with the documented findings, disposition and treatment plan as described except to the extent set forth below. Please see my progress notes for details.
[2018-05-17 14:51] LABS: Alanine Aminotransferase 13 Units/L (7-52); Albumin 2.8 g/dL (3.5-5.7); Albumin/Globulin Ratio 0.7 (1.1-2.2); Alkaline Phosphatase 122 Units/L (34-104); Aspartate Amino Transferase 26 Units/L (13-39); BUN/Creatinine Ratio 16 (6-26); Bilirubin,Direct 0.3 mg/dL (0.0-0.2); Bilirubin,Indirect 0.8 mg/dL (0.0-1.2); Bilirubin,Total 1.1 mg/dL (0.3-1.0); Blood Urea Nitrogen 12 mg/dL (8-23); Calcium 8.5 mg/dL (8.6-10.3); Carbon Dioxide 22 mEq/L (23-29); Chloride 110 mEq/L (98-107); Globulin 4.3 g/dL (2.4-3.5); Glucose 123 mg/dL (70-105); Magnesium 1.7 mg/dL (1.6-2.6); Osmolality,Calculated 289 (280-300); Potassium 3.3 mEq/L (3.5-5.1); Sodium 139 mEq/L (136-145); Total Protein 7.1 g/dL (6.4-8.9); eGFR For Non-African Americans > 60 (> 60)
--- NOTE | 2018-05-17 15:04 | Emergency Department Note ---
Disposition Clinical Impression: CHF (congestive heart failure), Colitis, UTI (urinary tract infection), Dehydration Disposition: Admitted As Inpatient Condition: Fair Time of Disposition: 17:11 General Adult HPI - General Chief complaint: ED Nausea/Vomiting/Diarrhea Stated complaint: nausea diarrhea Time Seen by Provider: 05/17/18 12:39 Source: patient, EMS Mode of arrival: EMS Limitations: no limitations - History of Present Illness Pain Scale: 2 - Related Data Home Medications Medication Instructions Recorded Confirmed Aspirin Enteric Coated [Aspirin EC] 81 mg PO DAILY 04/27/18 04/27/18 Metoprolol [Lopressor] 12.5 mg PO BID 04/27/18 05/02/18 Furosemide [Lasix] 20 mg PO BID 05/17/18 05/17/18 HYDROcodone/Acet 10/325 mg [[place] 1 tab PO BID PRN 05/17/18 05/17/18 10-325 mg] Previous Rx's Medication Instructions Recorded Apixaban [Eliquis] 5 mg PO BID #60 tablet 05/04/18 Allergies Allergy/AdvReac Type Severity Reaction Status Date / Time shellfish derived Allergy Severe Anaphylaxis Verified 05/17/18 12:47 levofloxacin [From Levaquin] Allergy Hives Verified 05/17/18 12:47 Penicillins Allergy Blister Verified 05/17/18 12:47 prednisone Allergy See Verified 05/17/18 12:47 Comments Sulfa (Sulfonamide Allergy Hives Verified 05/17/18 12:47 Antibiotics) egg AdvReac Severe Throat Verified 05/17/18 12:47 swelling nitrofurantoin AdvReac Severe Bruising Verified 05/17/18 12:47 [From Macrobid] on arms Constitutional: Reports: chills. Denies: fever Eyes: Reports: as per HPI ENT ED: Reports: as per HPI Cardiovascular: Denies: chest pain, palpitations, dyspnea on exertion Respiratory: Denies: cough, dyspnea Gastrointestinal: Reports: abdominal pain, nausea, diarrhea Genitourinary: Reports: as per HPI Musculoskeletal: Reports: as per HPI Integumentary: Reports: as per HPI Neurological: Denies: numbness, paresthesias Psychiatric: Reports: as per HPI Endocrine: Reports: as per HPI Hematological/Lymphatic: Reports: as per HPI Allergic/Immunologic: Reports: as per HPI Past Medical History - Past Medical History Medical history: Reports: non-contributory, asthma, atrial fibrillation, CHF, COPD, coronary artery disease, CVA, kidney stones Surgical history: Reports: angioplasty/stent, cholecystectomy, hysterectomy Psychiatric history: Reports: anxiety, depression, panic disorder - Social History Smoking Status: Never smoker Smokeless Tobacco Status: No Alcohol use: Reports: none Drug use: Reports: none Physical Exam - General Limitations: no limitations General appearance: alert, in no apparent distress Course Vital Signs Temperature 99.3 F 05/17/18 12:39 Pulse Rate 70 05/17/18 12:39 Respiratory Rate 16 05/17/18 12:39 Blood Pressure 102/54 05/17/18 12:39 O2 Sat by Pulse Oximetry 98 05/17/18 12:39 Temperature 99.3 F 05/17/18 12:39 Pulse Rate 77 05/17/18 16:00 Respiratory Rate 16 05/17/18 16:00 Blood Pressure 114/54 05/17/18 16:00 O2 Sat by Pulse Oximetry 97 05/17/18 16:00 Oxygen Delivery Oxygen Delivery Room Air Medical Decision Making - Lab Data Result diagrams: 05/17/18 12:55 05/17/18 13:52 Lab Results 05/17/18 05/17/18 05/17/18 Range/Units 12:55 12:55 12:55 WBC 8.1 (4.3-11.1) K/mcL RBC 3.55 L (3.82-4.97) M/mcL Hgb 9.5 L (11.5-15.4) g/dL Hct 30.5 L (35.3-44.9) % MCV 85.9 (83.0-100.0) fL MCH 26.8 L (28.0-33.3) pg MCHC 31.1 L (31.6-35.5) g/dL RDW 15.0 H (11.5-14.5) % Plt Count 145 (140-400) K/mcL MPV 11.3 (9.4-12.4) fL Immature Gran % 0.1 (0-4) % Seg Neutrophils % 62.1 % Lymphocytes % 22.3 % Monocytes % 7.9 % Eosinophils % 7.4 % Basophils % 0.2 % Neutrophils # 5.0 (1.6-8.9) K/mcL Lymphocytes # 1.8 (0.6-4.6) K/mcL Monocytes # 0.6 (0.0-1.3) K/mcL Eosinophils # 0.6 (0.0-0.6) K/mcL Basophils # 0.0 (0.0-0.2) K/mcL PT 24.2 H (9.4-12.1) Seconds INR 2.1 APTT 40.7 H (26.0-36.0) Seconds Sodium Cancelled Potassium Cancelled Chloride Cancelled Carbon Dioxide Cancelled BUN Cancelled Creatinine Cancelled Est GFR ( Amer) Cancelled Est GFR (Non-Af Amer) Cancelled BUN/Creatinine Ratio Cancelled Glucose Cancelled Calculated Osmolality Cancelled Lactic Acid (0.5-2.2) mmol/L Calcium Cancelled Magnesium Cancelled Total Bilirubin Cancelled Direct Bilirubin Cancelled Indirect Bilirubin Cancelled AST Cancelled ALT Cancelled Alkaline Phosphatase Cancelled Troponin I < 0.03 (< 0.04) ng/mL B-Natriuretic Peptide (Less than 100) pg/mL Serum Total Protein Cancelled Albumin Cancelled Globulin Cancelled Albumin/Globulin Ratio Cancelled Urine Color (Yellow) Urine Clarity (Clear) Urine pH (5.0-8.0) pH Units Ur Specific [place] (1.010-1.025) Urine Protein (Neg-Trace) mg/dL Urine Glucose (UA) (Normal) mg/dL Urine Ketones (Negative) mg/dL Urine Blood (Negative) Urine Nitrite (Negative) Urine Bilirubin (Negative) Urine Urobilinogen (Normal) mg/dL Ur Leukocyte Esterase (Negative) Urine Microscopic RBC (0-3) per hpf Urine Microscopic WBC (0-3) per hpf Ur Squamous Epith Cells (None-Few) per lpf Urine Bacteria (None-Few) per hpf Hyaline Casts (None-Few) per lpf Urine Yeast Ur Culture Indicated? (NO) Specimen Rejected 05/17/18 05/17/18 05/17/18 Range/Units 13:11 13:11 13:36 WBC (4.3-11.1) K/mcL RBC (3.82-4.97) M/mcL Hgb (11.5-15.4) g/dL Hct (35.3-44.9) % MCV (83.0-100.0) fL MCH (28.0-33.3) pg MCHC (31.6-35.5) g/dL RDW (11.5-14.5) % Plt Count (140-400) K/mcL MPV (9.4-12.4) fL Immature Gran % (0-4) % Seg Neutrophils % % Lymphocytes % % Monocytes % % Eosinophils % % Basophils % % Neutrophils # (1.6-8.9) K/mcL Lymphocytes # (0.6-4.6) K/mcL Monocytes # (0.0-1.3) K/mcL Eosinophils # (0.0-0.6) K/mcL Basophils # (0.0-0.2) K/mcL PT (9.4-12.1) Seconds INR APTT (26.0-36.0) Seconds Sodium Potassium Chloride Carbon Dioxide BUN Creatinine Est GFR ( Amer) Est GFR (Non-Af Amer) BUN/Creatinine Ratio Glucose Calculated Osmolality Lactic Acid 1.3 (0.5-2.2) mmol/L Calcium Magnesium Total Bilirubin Direct Bilirubin Indirect Bilirubin AST ALT Alkaline Phosphatase Troponin I (< 0.04) ng/mL B-Natriuretic Peptide 181 H (Less than 100) pg/mL Serum Total Protein Albumin Globulin Albumin/Globulin Ratio Urine Color (Yellow) Urine Clarity (Clear) Urine pH (5.0-8.0) pH Units Ur Specific [place] (1.010-1.025) Urine Protein (Neg-Trace) mg/dL Urine Glucose (UA) (Normal) mg/dL Urine Ketones (Negative) mg/dL Urine Blood (Negative) Urine Nitrite (Negative) Urine Bilirubin (Negative) Urine Urobilinogen (Normal) mg/dL Ur Leukocyte Esterase (Negative) Urine Microscopic RBC (0-3) per hpf Urine Microscopic WBC (0-3) per hpf Ur Squamous Epith Cells (None-Few) per lpf Urine Bacteria (None-Few) per hpf Hyaline Casts (None-Few) per lpf Urine Yeast Ur Culture Indicated? (NO) Specimen Rejected Hemolyzed 05/17/18 05/17/18 Range/Units 13:52 14:30 WBC (4.3-11.1) K/mcL RBC (3.82-4.97) M/mcL Hgb (11.5-15.4) g/dL Hct (35.3-44.9) % MCV (83.0-100.0) fL MCH (28.0-33.3) pg MCHC (31.6-35.5) g/dL RDW (11.5-14.5) % Plt Count (140-400) K/mcL MPV (9.4-12.4) fL Immature Gran % (0-4) % Seg Neutrophils % % Lymphocytes % % Monocytes % % Eosinophils % % Basophils % % Neutrophils # (1.6-8.9) K/mcL Lymphocytes # (0.6-4.6) K/mcL Monocytes # (0.0-1.3) K/mcL Eosinophils # (0.0-0.6) K/mcL Basophils # (0.0-0.2) K/mcL PT (9.4-12.1) Seconds INR APTT (26.0-36.0) Seconds Sodium 139 Potassium 3.3 L Chloride 110 H Carbon Dioxide 22 L BUN 12 Creatinine 0.76 Est GFR ( Amer) > 60 Est GFR (Non-Af Amer) > 60 BUN/Creatinine Ratio 16 Glucose 123 H Calculated Osmolality 289 Lactic Acid (0.5-2.2) mmol/L Calcium 8.5 L Magnesium 1.7 Total Bilirubin 1.1 H Direct Bilirubin 0.3 H Indirect Bilirubin 0.8 AST 26 ALT 13 Alkaline Phosphatase 122 H Troponin I (< 0.04) ng/mL B-Natriuretic Peptide (Less than 100) pg/mL Serum Total Protein 7.1 Albumin 2.8 L Globulin 4.3 H Albumin/Globulin Ratio 0.7 L Urine Color Yellow (Yellow) Urine Clarity Turbid A (Clear) Urine pH 7.0 (5.0-8.0) pH Units Ur Specific [place] 1.008 L (1.010-1.025) Urine Protein 100 H (Neg-Trace) mg/dL Urine Glucose (UA) Normal (Normal) mg/dL Urine Ketones Negative (Negative) mg/dL Urine Blood Moderate H (Negative) Urine Nitrite Positive A (Negative) Urine Bilirubin Negative (Negative) Urine Urobilinogen Normal (Normal) mg/dL Ur Leukocyte Esterase Large H (Negative) Urine Microscopic RBC 5-15 H (0-3) per hpf Urine Microscopic WBC TNTC H (0-3) per hpf Ur Squamous Epith Cells Moderate H (None-Few) per lpf Urine Bacteria Many H (None-Few) per hpf Hyaline Casts None Seen (None-Few) per lpf Urine Yeast Test Not Performed Ur Culture Indicated? YES A (NO) Specimen Rejected Attestation Statement - Attestation Attestation: I, Jesse Ludwig DO, examined this patient [id number] and my medical decision-making was reviewed with Dr. Katie Driver, Resident Physician. I agree with the documented findings, disposition and treatment plan as described except to the extent set forth below. Please see my progress notes for details. 68-year-old female presents emergency room from home for evaluation of abdominal pain and profuse diarrhea swelling in her lower extremities and increased work of breathing. Patient has been home for approximately 2 weeks now after a hospital stay for generalized illness and cellulitis. Patient has been taken care of herself relatively well according to her and she is an appropriate amount home health aides available to aid in her care at her house. She denies any falls trauma or injury. Denies any fevers or chills. Denies any chest pain headache vision changes nausea vomiting or diarrhea. Prior to the onset of the diarrhea over the last couple days. She is also describing some orthopnea and shortness of breath with exertion. Patient is baseline disabled has difficulty walking secondary to her stroke she sustained 2 years ago. She has a DVT in her left lower extremity is currently on Eliquis. Vital signs on presentation are stable. She is in some mild distress secondary to abdominal discomfort and cramping. Her head is atraumatic and mucous membranes are very dry and she has cracked lips. Her trachea is midline her lungs are clear heart is regular. She has full active motion of the neck. Abdomen is soft but she does have some tenderness appreciated on examination with no guarding or rigidity or peritoneal symptoms at this time. Bowel sounds are present. Patient does have redness and excoriation of the medial aspects of the thighs consistent with pressure up against them versus the diarrhea and irritation in that point. Patient also has a healing appearing red venous stasis-like ulcer on the left anterior aspect of her left leg. Patient moves her extremities appropriately she understands her questions and answers them appropriately. She is alert she is no evidence patient presents as. No neurologic deficits noted at this time. Patient is concerning for possible ventral abdominal related etiology versus infection. Fluids will be given and 500 mg aliquot secondary to the patient's history of congestive heart failure and her description of orthopnea. She will also have chest x-ray EKG CBC chemistry troponin and BNP along with electrolytes urinalysis. Disposition pending the full workup and treatment course. Patient is otherwise stable but is concerning for decompensation. See detailed documentation of the physical exam, medical intervention, medical decision-making and disposition in the resident physician's note. No critical care applied the patient's treatment course at this time. 1700 Patient has what appears to be colitis based on exam as well as urinary tract infection. Patient is been started on Rocephin 2 g as well as Flagyl for treatment of colitis as well as a urinary tract infection. Otherwise her CT scan is unremarkable. Patient will be admitted for continuation of care and possible placement secondary to difficulty attaining care of herself at home. Patient is otherwise clinically stable in no distress at time of admission. The hospitalist was contacted and a detailed review the patient's symptoms and presentation were discussed with Dr. Priest. No other recommendations or concerns were noted at this time. Potassium was repleted here in the emergency room. Continuation of care will be established on the floor.
[2018-05-17 15:35] LABS: Bilirubin,Urine Negative (Negative); Blood,Urine Moderate (Negative); Clarity,Urine Turbid (Clear); Color,Urine Yellow (Yellow); Glucose,Urine (UA) Normal (Normal); Ketones,Urine Negative (Negative); Leukocyte Esterase,Urine Large (Negative); Nitrite,Urine Positive (Negative); Protein,Urine 100 mg/dL (Neg-Trace); Specific Gravity,Urine 1.008 (1.010-1.025); Urobilinogen,Urine Normal (Normal)
[2018-05-17 15:42] LABS: Bacteria,Urine Many per hpf (None-Few); Hyaline Casts,Urine None Seen per lpf (None-Few); Squamous Epithelial Cell,Urine Moderate per lpf (None-Few); WBC,Urine TNTC per hpf (0-3)
[2018-05-17] MEDS ORDERED: MetroNIDAZOLE 500 MG/100 ML 500 MG/100 ML BAG IVPB ONE (16:34)
[2018-05-17] MEDS ORDERED: cefTRIAXone 1,000 MG in Water for inj. (sterile) 20 ML 10 ML IVP ONE (16:35)
[2018-05-17] MEDS ORDERED: Naloxone 0.4 MG/ML INJ IVP PRN (17:41)
--- NOTE | 2018-05-17 17:50 | Internal Med History&Physical ---
Date of Encounter: 05/17/18 Time of Encounter: 18:45 Internal Medicine - H&P: HPI History of present illness: 68 year old female with multiple co-morbidities including CHF, COPD, CAD, DVT on Eliquis, h/o C diff colitis, presented to ED for nausea and diarrhea. For several days she has had multiple non-bloody stools that are water-like in appearance and consistency. She tried Imodium at home with little help. She also noticed bilateral lower extremity edema and so she has decreased her fluid intake for concern of heart failure exacerbation. On arrival to hospital patient appeared severely dehydrated. A CT of abdomen showed severe colitis. A chest x-ray showed pulmonary edema consistent with CHF. Urinalysis was consistent with UTI. Currently patient is in no acute distress. She has no complaints of chest pain, SOB, fevers/chills. Last bowel movement was prior to arrival to ED and looked like mostly water. She has multiple antibiotic allergies, including penicillins, Levaquin, and sulfa drugs , and so was treated with Rocephin and Flagyl for coverage. She tolerated the antibiotics so far without any issues. Past Med Surg Social Fam HX - Past Medical History Medical history: non-contributory, asthma, atrial fibrillation, CHF, COPD, coronary artery disease, CVA, kidney stones Additional medical history: recurrent UTI's Psychiatric history: anxiety, depression, panic disorder - Past Surgical History Surgical History: angioplasty/stent, cholecystectomy, hysterectomy Additional surgical history: bladder surgeries, lap band , right ureteral stent - Social History Smoking Status: Never smoker Smokeless Tobacco Status: No Alcohol use: none Drug use: none - Family History Brother Living Status: Still Living Hx Family Cardiac Disorders: Yes (HTN) Hx Family Endocrine Disorder: Yes (Diabetes) Mother Living Status: Hx Family Cardiac Disorders: Yes (htn) Hx Family Endocrine Disorder: Yes (dm) Father Living Status: Hx Family Cardiac Disorders: Yes (CABG x3 HTN diabetes) Hx Family Respiratory Disorders: No Hx Family Cancer: No Hx Family GI Disorders: No Hx Family Endocrine Disorder: Yes (diabetes) Hx Family Neuromuscular Disorders: No Hx Family Neurologic Disorders: No Hx Family HEENT Disorders: No Hx Family Autoimmune Disorders: No Internal Medicine - H&P: Meds Aspirin Enteric Coated [Aspirin EC] 81 mg PO DAILY 04/27/18 [History] Metoprolol [Lopressor] 25 mg PO BID 04/27/18 [History] Apixaban [Eliquis] 5 mg PO BID #60 tablet 05/04/18 [Rx] Furosemide [Lasix] 20 mg PO BID 05/17/18 [History] HYDROcodone/Acet 10/325 mg [[place] 10-325 mg] 1 tab PO BID PRN 05/17/18 [History] 3 Allergy/AdvReac Type Severity Reaction Status Date / Time shellfish derived Allergy Severe Anaphylaxis Verified 05/17/18 12:47 levofloxacin [From Levaquin] Allergy Hives Verified 05/17/18 12:47 Penicillins Allergy Blister Verified 05/17/18 12:47 prednisone Allergy See Verified 05/17/18 12:47 Comments Sulfa (Sulfonamide Allergy Hives Verified 05/17/18 12:47 Antibiotics) egg AdvReac Severe Throat Verified 05/17/18 12:47 swelling nitrofurantoin AdvReac Severe Bruising Verified 05/17/18 12:47 [From Macrobid] on arms All Systems PM: A 10-system review of systems was performed and is negative for pertinent findings except as documented above in the HPI. - Constitutional Vitals: Temp Pulse Resp BP Pulse Ox 99.3 F 77 16 114/54 97 05/17/18 12:39 05/17/18 16:00 05/17/18 16:00 05/17/18 16:00 05/17/18 16:00 General appearance: Present: A&O X 3, no acute distress Exam: NAD - Head Head exam: Present: atraumatic, normocephalic - Eye Eye exam: Present: PERRL, conjuntiva pink, sclera anicteric Pupils: Present: PERRL - ENT ENT exam: Present: mucous membranes dry - Neck Neck exam general surgery: Present: supple, trachea midline. Absent: lymphadenopathy - Respiratory Respiratory exam: Present: decreased breath sounds, rales. Absent: accessory muscle use, wheezes - Cardiovascular Cardiovascular exam: Present: RRR, +S1, +S2. Absent: diastolic murmur, gallop, rubs, systolic murmur - GI/Abdominal GI/Abdominal exam: Present: normal bowel sounds, soft, no peritoneal signs. Absent: distended, tenderness - Extremities Exam Extremities exam: Present: pedal edema (2+ bilateral), warm, radial pulses palpable and symmetrical. Absent: calf tenderness, cyanotic - Neurological Exam Neurological exam: Present: CN II-XII intact, oriented X3, no focal deficits. Absent: pronater drift, facial droop, speech deficit - Skin Skin exam: Present: dry, erythema (left anterior smith there is dermatitis and erythema consistant with venous stasis dermatitis.), intact Internal Med - H&P Results - Labs CBC & Chem 7: 05/17/18 12:55 05/17/18 13:52 - Assessment and plan (1) Colitis Current Visit: Yes Status: Acute Assessment and plan: Presented with severe diarrhea and nausea. CT of abdomen/pelvis showed colitis vs underlying malignancy. Patient does not clinically appear septic, and objectively she has met 0 SIRS criteria Difficult to hydrate patient at this moment since she appears intravascularly volume depleted but still fluid overloaded due to HFpEF - Advance diet as tolerated, start with clear liquid diet. - Follow-up stool studies. There is chance that C diff toxin will be positive given she has had this in the past (12/2017). Will monitor for growth of other organisms. - Has allergies to fluroquinolones, penicillins, and Sulfa antibiotics. - She tolerated Rocephin in ED, Will continue Rocephin and Flagyl. - Will consider a consult to GI when patient more stable, likely in the outpatient setting to evaluate the CT findings that note this is colitis vs malignancy. Clinically it presents as infectious colitis, but plan for GI referral when she improves or on discharge. (2) Acute on chronic diastolic heart failure Current Visit: No Status: Chronic Assessment and plan: Patient presented in acute respiratory distress with edema of lower extremities Chest x-ray shows pulm vascular congestion and edema. Currently on Room air She is dehydrated from persistent nausea and diarrhea She received 500 ml normal saline in ED. Will try to avoid diuretics for now since patient is intravascularly depleted from chronic diarrhea. She is a poor candidate for nitro drip given her hypotension Elevated head of bed > 45 degrees Fluid restriction: clear liquid diet Stict I/Os. Will consider echocardiogram with definity. Last echo study was sub-optimal due to body habitus. If shortness of breath worsens, she should use BIPAP for pulmonary edema. (3) Dehydration Current Visit: Yes Status: Acute Assessment and plan: Secondary to above. If patient needs IV hydration it will have to be judiciously given due to her known acute and chronic heart failure. (4) UTI (urinary tract infection) Current Visit: Yes Status: Acute Assessment and plan: Continue Rocephin Follow-up urine cultures Qualifiers: Urinary tract infection type: acute cystitis Hematuria presence: with hematuria Qualified Code(s): N30.01 - Acute cystitis with hematuria (5) Anemia Current Visit: No Status: Acute Assessment and plan: Patient is at baseline H/H Qualifiers: Anemia type: unspecified type Qualified Code(s): D64.9 - Anemia, unspecified (6) Debility Current Visit: No Status: Acute (7) Sacral decubitus ulcer Current Visit: No Status: Acute Assessment and plan: Present on admission Consult to Wound Care Qualifiers: Pressure injury stage: stage 2 Qualified Code(s): L89.152 - Pressure ulcer of sacral region, stage 2 (8) Atrial fibrillation Current Visit: No Status: Chronic Assessment and plan: Resume metoprolol Resume Eliquis Qualifiers: Atrial fibrillation type: unspecified Qualified Code(s): I48.91 - Unspecified atrial fibrillation (9) Coronary artery disease Current Visit: No Status: Chronic Assessment and plan: Aspirin Qualifiers: Coronary Disease-Associated Artery/Lesion type: unspecified vessel or lesion type [place] vs. transplanted heart: [place] heart Associated angina: angina presence unspecified Qualified Code(s): I25.10 - Atherosclerotic heart disease of [place] coronary artery without angina pectoris (10) Diabetes Current Visit: No Status: Chronic Assessment and plan: Advance to diabetic diet as tolerated. 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 (13) COPD (chronic obstructive pulmonary disease) Current Visit: Yes Status: Acute Assessment and plan: Not in acute exacerbation. Qualifiers: COPD type: unspecified COPD Qualified Code(s): J44.9 - Chronic obstructive pulmonary disease, unspecified (14) History of CVA (cerebrovascular accident) Current Visit: Yes Status: Acute Assessment and plan: Currently on Eliquis and aspirin. (15) DVT prophylaxis Current Visit: No Status: Acute Assessment and plan: On Eliquis - Time Spent With Patient Total time spent is greater than 50% in coordination of care (as documented) at patient's floor/unit and/or counseling patient:
[2018-05-17] MEDS ORDERED: *HR* Dextrose 50 % in Water (Syg) 50 ML SYRINGE IVP PRN (18:35)
[2018-05-17] MEDS ORDERED: Dextrose Gel 15 GM/37.5 ML TUBE PO PRN ×2 (18:35)
[2018-05-17] MEDS ORDERED: D5% in Water 1,000 ML IVC PRN (18:35)
[2018-05-17] MEDS: Apixaban 5 MG TABLET PO SCH (21:05)
[2018-05-17] MEDS: Insulin LISPRO 300 UNITS/3 ML VIAL SQ SCH (21:51)
[2018-05-18] MEDS: MetroNIDAZOLE 500 MG/100 ML 500 MG/100 ML BAG IVPB SCH ×3 (01:46→15:50)
--- NOTE | 2018-05-18 09:00 | Electrocardiograph Report ---
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
[2018-05-18] MEDS: Insulin LISPRO 300 UNITS/3 ML VIAL SQ SCH ×4 (09:08→22:48)
[2018-05-18 09:26] LABS: Basophils % 0.4 %; Eosinophils # 0.5 K/mcL (0.0-0.6); Eosinophils % 7.1 %; Hematocrit 28.2 % (35.3-44.9); Hemoglobin 8.8 g/dL (11.5-15.4); Immature Granulocytes % 0.3 % (0-4); Lymphocytes # 1.5 K/mcL (0.6-4.6); Lymphocytes % 21.6 %; Mean Corpuscular HGB Conc 31.2 g/dL (31.6-35.5); Mean Corpuscular Volume 86.5 fL (83.0-100.0); Mean Platelet Volume 11.3 fL (9.4-12.4); Monocytes # 0.5 K/mcL (0.0-1.3); Monocytes % 6.6 %; Neutrophils # 4.3 K/mcL (1.6-8.9); Platelet Count 127 K/mcL (140-400); Red Blood Count 3.26 M/mcL (3.82-4.97); Red Cell Distribution Width 15.1 % (11.5-14.5)
[2018-05-18 09:51] LABS: BUN/Creatinine Ratio 18 (6-26); Blood Urea Nitrogen 10 mg/dL (8-23); Calcium 8.1 mg/dL (8.6-10.3); Carbon Dioxide 22 mEq/L (23-29); Chloride 110 mEq/L (98-107); Glucose 111 mg/dL (70-105); Osmolality,Calculated 286 (280-300); Potassium 3.2 mEq/L (3.5-5.1); Sodium 138 mEq/L (136-145); eGFR For Non-African Americans > 60 (> 60)
--- NOTE | 2018-05-18 10:23 | Internal Med Progress Note ---
Hospitalist Progress Note - Encounter Date of Encounter: 05/18/18 Time of Encounter: 10:41 - Subjective Interval History: No acute events overnight. She denies fevers, SOB, diarrhea. No abdominal pain. - Exam Vitals: Temp Pulse Resp BP Pulse Ox 98.1 F 81 16 100/60 96 05/18/18 06:28 05/18/18 06:28 05/18/18 06:28 05/18/18 06:28 05/18/18 06:28 Exam: General appearance: Present: A&O X 3, no acute distress Exam: NAD - Head Head exam: Present: atraumatic, normocephalic - Eye Eye exam: Present: PERRL, conjuntiva pink, sclera anicteric Pupils: Present: PERRL - ENT ENT exam: Present: mucous membranes dry - Neck Neck exam general surgery: Present: supple, trachea midline. Absent: lymphadenopathy - Respiratory Respiratory exam: Present: decreased breath sounds, rales. Absent: accessory muscle use, wheezes - Cardiovascular Cardiovascular exam: Present: RRR, +S1, +S2. Absent: diastolic murmur, gallop, rubs, systolic murmur - GI/Abdominal GI/Abdominal exam: Present: normal bowel sounds, soft, no peritoneal signs. Absent: distended, tenderness - Extremities Exam Extremities exam: Present: pedal edema (2+ bilateral), warm, radial pulses palpable and symmetrical. Absent: calf tenderness, cyanotic - Neurological Exam Neurological exam: Present: CN II-XII intact, oriented X3, no focal deficits. Absent: pronater drift, facial droop, speech deficit - Skin Skin exam: Present: dry, erythema (left anterior smith there is dermatitis and erythema consistant with venous stasis dermatitis.), intact - Assessment and Plan (1) Colitis Current Visit: Yes Status: Acute Assessment and Plan: Presented with severe diarrhea and nausea. CT of abdomen/pelvis showed colitis vs underlying malignancy. Patient does not clinically appear septic, and objectively she has met 0 SIRS criteria Difficult to hydrate patient at this moment since she appears intravascularly volume depleted but still fluid overloaded due to HFpEF - Advance diet as tolerated, start with clear liquid diet. - Follow-up stool studies. There is chance that C diff toxin will be positive given she has had this in the past (12/2017). Will monitor for growth of other organisms. - Has allergies to fluroquinolones, penicillins, and Sulfa antibiotics. - She tolerated Rocephin in ED, continued Rocephin and Flagyl on admission.. - Will consider a consult to GI when patient more stable, likely in the outpatient setting to evaluate the CT findings that note this is colitis vs malignancy. Clinically it presents as infectious colitis, but plan for GI referral when she improves or on discharge. -Will try to start her on Cipro/Flagyl, reviewing records, she has taken Cipro in the past without issue. Highly suspicious for C diff (2) Acute on chronic diastolic heart failure Current Visit: No Status: Chronic Assessment and Plan: Patient presented in acute respiratory distress with edema of lower extremities Chest x-ray shows pulm vascular congestion and edema. Currently on Room air She is dehydrated from persistent nausea and diarrhea She received 500 ml normal saline in ED. Will try to avoid diuretics for now since patient is intravascularly depleted from chronic diarrhea. She is a poor candidate for nitro drip given her hypotension Elevated head of bed > 45 degrees Fluid restriction: clear liquid diet Stict I/Os. Follow-up echocardiogram with definity. Last echo study was sub-optimal due to body habitus. If shortness of breath worsens, she should use BIPAP for pulmonary edema. (3) Dehydration Current Visit: Yes Status: Acute Assessment and Plan: Secondary to above. If patient needs IV hydration it will have to be judiciously given due to her known acute and chronic heart failure. (4) UTI (urinary tract infection) Current Visit: Yes Status: Acute Assessment and Plan: Continue Rocephin Follow-up urine cultures May change abx to Cipro/Flagyl (5) Anemia Current Visit: No Status: Acute Assessment and Plan: Patient is at baseline H/H (6) Debility Current Visit: No Status: Acute Assessment and Plan: PT/OT (7) Sacral decubitus ulcer Current Visit: No Status: Acute Assessment and Plan: Present on admission Consult to Wound Care (8) Atrial fibrillation Current Visit: No Status: Chronic Assessment and Plan: Resume metoprolol Resume Eliquis (9) Coronary artery disease Current Visit: No Status: Chronic Assessment and Plan: Aspirin (10) Diabetes Current Visit: No Status: Chronic Assessment and Plan: Advance to diabetic diet as tolerated. ISS (11) Morbid obesity Current Visit: No Status: Chronic (12) Sacral decubitus ulcer, stage II Current Visit: No Status: Acute Assessment and Plan: Consult made to Wound Care. (13) COPD (chronic obstructive pulmonary disease) Current Visit: Yes Status: Acute Assessment and Plan: Not in acute exacerbation. (14) History of CVA (cerebrovascular accident) Current Visit: Yes Status: Acute Assessment and Plan: Currently on Eliquis and aspirin. (15) DVT prophylaxis Current Visit: No Status: Acute Assessment and Plan: On Eliquis - Time Spent with Patient Total time spent is greater than 50% in coordination of care (as documented) at patient's floor/unit and/or counseling patient: Internal Medicine: Result - Labs CBC & Chem 7: 05/18/18 08:53 05/18/18 08:53 Labs: Short CBC 05/18/18 Range/Units 08:53 WBC 6.8 (4.3-11.1) K/mcL Hgb 8.8 L (11.5-15.4) g/dL Hct 28.2 L (35.3-44.9) % Plt Count 127 L (140-400) K/mcL Neutrophils # 4.3 (1.6-8.9) K/mcL BMP 05/18/18 08:53 Sodium 138 Potassium 3.2 L Chloride 110 H Carbon Dioxide 22 L BUN 10 Creatinine 0.55 L Glucose 111 H Calcium 8.1 L - ABG Interpretation ABG results: PT/INR, D-dimer PT 24.2 Seconds (9.4-12.1) H 05/17/18 12:55 Consult Discharge Plan - Plan Referrals: Nithin Hernandez [Primary Care Provider] - (4) UTI (urinary tract infection) Qualifiers: Urinary tract infection type: acute cystitis Hematuria presence: with hematuria Qualified Code(s): N30.01 - Acute cystitis with hematuria (5) Anemia Qualifiers: Anemia type: unspecified type Qualified Code(s): D64.9 - Anemia, unspecified (7) Sacral decubitus ulcer Qualifiers: Pressure injury stage: stage 2 Qualified Code(s): L89.152 - Pressure ulcer of sacral region, stage 2 (8) Atrial fibrillation Qualifiers: Atrial fibrillation type: unspecified Qualified Code(s): I48.91 - Unspecified atrial fibrillation (9) Coronary artery disease Qualifiers: Coronary Disease-Associated Artery/Lesion type: unspecified vessel or lesion type [place] vs. transplanted heart: [place] heart Associated angina: angina presence unspecified Qualified Code(s): I25.10 - Atherosclerotic heart disease of [place] coronary artery without angina pectoris (10) Diabetes Qualifiers: Diabetes mellitus type: type 2 Diabetes mellitus meterman insulin use: without meterman use Diabetes mellitus complication status: without complication Qualified Code(s): E11.9 - Type 2 diabetes mellitus without complications (13) COPD (chronic obstructive pulmonary disease) Qualifiers: COPD type: unspecified COPD Qualified Code(s): J44.9 - Chronic obstructive pulmonary disease, unspecified
[2018-05-18] MEDS: Aspirin Enteric Coated 81 MG Tablet PO SCH (10:54)
[2018-05-18] MEDS: Apixaban 5 MG TABLET PO SCH ×2 (10:54→22:46)
[2018-05-18] MEDS ORDERED: Potassium Effervescent 25 MEQ TABLET.EFF PO ONE (11:07)
[2018-05-18] MEDS ORDERED: cefTRIAXone 2,000 MG in Water for inj. (sterile) 20 ML 20 ML IVP SCH (17:00)
[2018-05-19] MEDS: MetroNIDAZOLE 500 MG/100 ML 500 MG/100 ML BAG IVPB SCH ×3 (01:40→17:02)
[2018-05-19] MEDS: Ipratropium/Albuterol Neb 3 ML IH PRN (02:13)
[2018-05-19 05:58] LABS: BUN/Creatinine Ratio 14 (6-26); Blood Urea Nitrogen 8 mg/dL (8-23); Calcium 8.1 mg/dL (8.6-10.3); Carbon Dioxide 21 mEq/L (23-29); Chloride 110 mEq/L (98-107); Glucose 115 mg/dL (70-105); Osmolality,Calculated 283 (280-300); Potassium 3.7 mEq/L (3.5-5.1); Sodium 137 mEq/L (136-145); eGFR For Non-African Americans > 60 (> 60)
[2018-05-19] MEDS: Insulin LISPRO 300 UNITS/3 ML VIAL SQ SCH ×4 (08:57→23:00)
[2018-05-19 11:02] LABS: Basophils % 0.6 %; Eosinophils # 0.7 K/mcL (0.0-0.6); Eosinophils % 10.5 %; Hematocrit 29.9 % (35.3-44.9); Hemoglobin 9.3 g/dL (11.5-15.4); Immature Granulocytes % 0.3 % (0-4); Lymphocytes # 1.7 K/mcL (0.6-4.6); Lymphocytes % 26.9 %; Mean Corpuscular HGB Conc 31.1 g/dL (31.6-35.5); Mean Corpuscular Hemoglobin 26.9 pg (28.0-33.3); Mean Corpuscular Volume 86.4 fL (83.0-100.0); Mean Platelet Volume 10.8 fL (9.4-12.4); Monocytes # 0.4 K/mcL (0.0-1.3); Monocytes % 6.6 %; Neutrophils # 3.4 K/mcL (1.6-8.9); Platelet Count 134 K/mcL (140-400); Red Blood Count 3.46 M/mcL (3.82-4.97); Red Cell Distribution Width 15.4 % (11.5-14.5); Segmented Neutrophils % 55.1 %
[2018-05-19] MEDS: Apixaban 5 MG TABLET PO SCH ×2 (11:58→19:57)
[2018-05-19] MEDS: Aspirin Enteric Coated 81 MG Tablet PO SCH (11:58)
--- NOTE | 2018-05-19 15:27 | Internal Med Progress Note ---
<Jarret Matamoros - Last Filed: 05/19/18 17:21> Hospitalist Progress Note - Encounter Date of Encounter: 05/19/18 Time of Encounter: 16:21 - Subjective Interval History: Patient is a 68 yof that was admitted to the ED for a 3 day history of diarrhea and leg swelling. Her daughter thought that she was becoming dehydrated and wanted her to come in. She states that on Tuesday, her home health aide had the "stomach flu", and gave her a bath. She subsequently started having diarrhea. They were multiple, loose, bowel movements. She denies having had blood in the stools, abdominal pain, nausea, or vomiting. She had a Chest x-ray on 05/17 that was suggestive of pulmonary edema, and a CT abdomen/pelvis on 05/17 that showed findings suggestive of colitis, but underlying malignancy could not be ruled out. The CT abdomen/pelvis also showed cirrhosis and a 6 cm right adnexal complex cyst. Her UA was positive for a UTI as well. Today, patient states that her diarrhea has improved. She only had 1 bowel movement yesterday, and it was watery. She is tolerating a clear liquid diet without nausea, vomiting, abdominal pain, worsening diarrhea. She is not complaining of shortness of breath, and states that her leg swelling is the same as yesterday. Patient denies melena, hematochezia, hematemasis, dysuria, urinary urgency. - Exam Vitals: Temp Pulse Resp BP Pulse Ox 97.7 F 62 16 90/56 97 05/19/18 14:00 05/19/18 14:00 05/19/18 14:00 05/19/18 14:00 05/19/18 14:00 Exam: Gen.: female lying in bed. Not in acute distress HEENT: Appears dry with cracked lips Cardiac: RRR, no murmur, +S1/S2 Pulmonary: CTA bilaterally Abdomen: soft, nontender, BS noted, no guarding, no rebound. Extremities: 1+ Bilateral lower extremity pitting edema. BL LE chronically edematous. Likely lymphedema component. There is a 6 cm asymmetrical scaly lesion on her left lower extremity. It is dry and not tender or warm. Neuro: A&Ox3, moves all extremities, no focal deficits Psych: Appropriate mood and behavior - Assessment and Plan (1) Colitis Current Visit: Yes Status: Acute Assessment and Plan: -2/2 infectious etiology -C diff unlikely due to improvement in bowel movements -CT abdomen/pelvis 05/17 showed findings consistent with colitis, but could not rule out underlying malignancy -Patient has had multiple episodes of diarrhea for which she has needed hospital admission. Likely a chronic issue -Patient's diarrhea has improved. She denies having a bowel movement today. Had 1 loose bowel movement yesterday -Does not meet sepsis criteria. Has WBC 6.2, is not tachycardic or tachypnic, and has remained afebrile Plan: -Continue with IV Flagyl day 3 -Start Ciprofloxacin -Continue with full liquid diet -GI panel pending -GI consulted. Appreciate recommendations regarding possible underlying malignancy (2) Dehydration Current Visit: Yes Status: Acute Assessment and Plan: -2/2 to diarrhea -Not currently on IVF. Tolerating liquids by mouth Plan: -Continue full liquid diet. Restrict salt and liquid intake to less than 2 L -Give albumin to keep fluid intravascularly (3) UTI (urinary tract infection) Current Visit: Yes Status: Acute Assessment and Plan: -Urine culture 05/17 growing gram positive cocci and gram negative rods -Patient denying dysuria, urinary hesitancy, urinary urgency -WBC 8.1 at admission and is 6.2 today. 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 Patient is currently asymptomatic. Possibility that she is a colonizer. Plan: -Stop ceftriaxone 2g. 3 days given -Start ciprofloxacin -Culture and sensitivity pending -Consider ID consult if culture grows multiple drug resistant organism (4) Acute on chronic diastolic heart failure Current Visit: Yes Status: Resolved Assessment and Plan: -Chest x-ray 05/17 showed pulmonary edema suggestive of CHF exacerbation -ECHO 05/18 showed EF 60% with mild LV diastolic dysfunction -500 ml NS given in ED -BL LE remain edematous Plan: -Continue on fluid and salt restriction -Start full liquid diet -TAMARA wrap bilateral lower extremities. Elevate legs while sitting (5) Cirrhosis Current Visit: Yes Status: Acute Assessment and Plan: -Likely 2/2 VELASQUEZ -CT abdomen/pelvis 05/17 showed findings suggestive of cirrhosis -Previous CT abdomen/pelvis show findings consistent with fatty liver -INR 2.1, PT 24.2, AST 26, ALT 13 -Albumin 2.8 Plan: -Give albumin for intravascular volume depletion -GI consulted. Appreciate recommendation (6) Pelvic mass Current Visit: Yes Status: Acute Assessment and Plan: -CT abdomen/pelvis 05/17 showed right 6 cm adnexal complex mass that was there on 01/28/2018 -Patient is not complaining of pelvic pain -Patient is made aware of adnexal mass and advised to follow up with [facility] outpatient Plan: -Referral for gynecology follow up outpatient (7) Atrial fibrillation Current Visit: No Status: Chronic Assessment and Plan: -Currently in NSR -HR 66 -CHADSVASC score 8 Plan: -Continue on eliquis 5mg BID -Continue on metoprolol tartrate 12.5mg BID (8) Diabetes Current Visit: No Status: Chronic Assessment and Plan: -Blood sugars well controlled while inpatient -Hgb A1c 5.3 on 01/29/2018 -Glucose 115 this morning Plan: -Continue low dose SSI (9) Sacral decubitus ulcer Current Visit: No Status: Acute Assessment and Plan: -Patient states that her sacral ulcer is chronic and was present prior to admission -Wound care is onboard DVT Prophylaxis: Eliquis 5mg BID - Time Spent with Patient Total time spent is greater than 50% in coordination of care (as documented) at patient's floor/unit and/or counseling patient: Internal Medicine: Result - Labs CBC & Chem 7: 05/19/18 10:12 05/19/18 05:17 Labs: Short CBC 05/19/18 Range/Units 10:12 WBC 6.2 (4.3-11.1) K/mcL Hgb 9.3 L (11.5-15.4) g/dL Hct 29.9 L (35.3-44.9) % Plt Count 134 L (140-400) K/mcL Neutrophils # 3.4 (1.6-8.9) K/mcL BMP 05/19/18 05:17 Sodium 137 Potassium 3.7 Chloride 110 H Carbon Dioxide 21 L BUN 8 Creatinine 0.59 L Glucose 115 H Calcium 8.1 L - ABG Interpretation ABG results: PT/INR, D-dimer PT 24.2 Seconds (9.4-12.1) H 05/17/18 12:55 Consult Discharge Plan - Plan Referrals: Nithin Hernandez [Primary Care Provider] - 05/24/18 10:00 am <Gunjan Edwards - Last Filed: 05/19/18 19:20> Hospitalist Progress Note - Encounter Date of Encounter: 05/19/18 - Exam Vitals: Temp Pulse Resp BP Pulse Ox 97.9 F 66 16 98/62 97 05/19/18 16:29 05/19/18 16:29 05/19/18 16:29 05/19/18 16:29 05/19/18 16:29 - Assessment and Plan (1) DVT prophylaxis Current Visit: No Status: Acute (2) Acute on chronic diastolic heart failure Current Visit: No Status: Chronic (3) Morbid obesity Current Visit: No Status: Chronic (4) Coronary artery disease Current Visit: No Status: Chronic (5) Atrial fibrillation Current Visit: No Status: Chronic (6) Diabetes Current Visit: No Status: Chronic (7) Anemia Current Visit: No Status: Acute (8) Dehydration Current Visit: Yes Status: Acute (9) Sacral decubitus ulcer, stage II Current Visit: No Status: Acute (10) Debility Current Visit: No Status: Acute (11) Sacral decubitus ulcer Current Visit: No Status: Acute (12) Colitis Current Visit: Yes Status: Acute (13) UTI (urinary tract infection) Current Visit: Yes Status: Acute (14) COPD (chronic obstructive pulmonary disease) Current Visit: Yes Status: Acute (15) History of CVA (cerebrovascular accident) Current Visit: Yes Status: Acute - Time Spent with Patient Total time spent is greater than 50% in coordination of care (as documented) at patient's floor/unit and/or counseling patient: Internal Medicine: Result - Labs CBC & Chem 7: 05/19/18 10:12 05/19/18 05:17 Labs: Short CBC 05/19/18 Range/Units 10:12 WBC 6.2 (4.3-11.1) K/mcL Hgb 9.3 L (11.5-15.4) g/dL Hct 29.9 L (35.3-44.9) % Plt Count 134 L (140-400) K/mcL Neutrophils # 3.4 (1.6-8.9) K/mcL BMP 05/19/18 05:17 Sodium 137 Potassium 3.7 Chloride 110 H Carbon Dioxide 21 L BUN 8 Creatinine 0.59 L Glucose 115 H Calcium 8.1 L - ABG Interpretation ABG results: PT/INR, D-dimer PT 24.2 Seconds (9.4-12.1) H 05/17/18 12:55 - Attending Attestation The history, physical exam, and medical decision making was performed by the medical student either while I was physically present and actively involved or I personally re-performed the exam and medical decision making. I have verified the accuracy of the medical student's documentation with regards to the history, physical exam findings, and medical decision making. MS Golden was admitted with colitis and acute on chronic diastolic heart failure with le edema. Awake, restng in bed, denies abd pain, nausea or emesis. no diarrhea since yesterday. tolerating limited diet without issue. le edema is unchanged, no cp, pressure, palpitations, sob. gen- alert, awake,appears stated age eyes- pupils equal round , no scleral icterus, no conjunctival pallor cv- reg rate and rhythm, normal s1,s2, no murmurs appreciated, trace pitting bl le edema lungs- ctabl, no wheezing, rhonchi or crackles, normal resp effort on room air abd- soft, non tender, no guarding, non distended, + bs neuro- AAOx3, CN grossly intact, no focal deficits Colitis, may be ifectious and has been treated as such this admission with rocpehin + flagyl (then confirmed has taken cipro in past without allergic reaction and changed to cipr + flagy), clinically improving. no diarrhea since yesterday. stool panel but do not need to send c diff given no diarrhea throughotu day today, advance diet to full, consult gi as ct scan notes this may be infecitous or malignancy and rec for cscope Possible UTI with hx of utis and MRDO -unclear with current cx results if this could be colonization or active infection- will cont abx as above, fu cx results and then possible ID consult as they have seen her many times for similar given her mdro hx and multiple abx allergies ACute on Chronic diastolic chf- she appears intravascularly depleted but fluid overload on admission exam and cxr, cautious fluids this admit, encourage oral intake over addl ivfs, albumin dose to be given with hyeer hypoalbuminemia and delfin hose to be applied Cirrhosis on imaging- pt was unaware of this diagnosis- she will require outpt fu for further work up Pelvic mass, known to pt, diagnosed in november with most recent us injune, she is following routinely with pcp for this and rec to refer to diet tech as outpt chronic sacral decub ulcer- wound care <Jarret Matamoros R - Last Filed: 05/19/18 17:21> (3) UTI (urinary tract infection) Qualifiers: Urinary tract infection type: acute cystitis Hematuria presence: with hematuria Qualified Code(s): N30.01 - Acute cystitis with hematuria (7) Atrial fibrillation Qualifiers: Atrial fibrillation type: unspecified Qualified Code(s): I48.91 - Unspecified atrial fibrillation (8) Diabetes Qualifiers: Diabetes mellitus type: type 2 Diabetes mellitus senior care insulin use: without senior care use Diabetes mellitus complication status: without complication Qualified Code(s): E11.9 - Type 2 diabetes mellitus without complications (9) Sacral decubitus ulcer Qualifiers: Pressure injury stage: stage 2 Qualified Code(s): L89.152 - Pressure ulcer of sacral region, stage 2 <Gunjan Edwards M - Last Filed: 05/19/18 19:20> (4) Coronary artery disease Qualifiers: Coronary Disease-Associated Artery/Lesion type: unspecified vessel or lesion type [place] vs. transplanted heart: [place] heart Associated angina: angina presence unspecified Qualified Code(s): I25.10 - Atherosclerotic heart disease of [place] coronary artery without angina pectoris (5) Atrial fibrillation Qualifiers: Atrial fibrillation type: unspecified Qualified Code(s): I48.91 - Unspecified atrial fibrillation (6) Diabetes Qualifiers: Diabetes mellitus type: type 2 Diabetes mellitus intermediate frame tender insulin use: without intermediate frame tender use Diabetes mellitus complication status: without complication Qualified Code(s): E11.9 - Type 2 diabetes mellitus without complications (7) Anemia Qualifiers: Anemia type: unspecified type Qualified Code(s): D64.9 - Anemia, unspecified (11) Sacral decubitus ulcer Qualifiers: Pressure injury stage: stage 2 Qualified Code(s): L89.152 - Pressure ulcer of sacral region, stage 2 (13) UTI (urinary tract infection) Qualifiers: Urinary tract infection type: acute cystitis Hematuria presence: with hematuria Qualified Code(s): N30.01 - Acute cystitis with hematuria (14) COPD (chronic obstructive pulmonary disease) Qualifiers: COPD type: unspecified COPD Qualified Code(s): J44.9 - Chronic obstructive pulmonary disease, unspecified
[2018-05-19] MEDS ORDERED: Albumin 25% 25gram/100mL 25 GM/100 ML IV.SOLN IVPB ONE (16:58)
[2018-05-19] MEDS: *HR* HYDROcodone/Acet 10/325 mg TABLET PO PRN (19:57)
[2018-05-19] MEDS: Ondansetron 4 MG/2 ML VIAL IVP PRN (22:06)
[2018-05-20 01:51] LABS: BUN/Creatinine Ratio 13 (6-26); Blood Urea Nitrogen 8 mg/dL (8-23); Calcium 8.6 mg/dL (8.6-10.3); Carbon Dioxide 23 mEq/L (23-29); Chloride 109 mEq/L (98-107); Glucose 111 mg/dL (70-105); Osmolality,Calculated 283 (280-300); Potassium 3.6 mEq/L (3.5-5.1); Sodium 137 mEq/L (136-145); eGFR For Non-African Americans > 60 (> 60)
[2018-05-20] MEDS: MetroNIDAZOLE 500 MG/100 ML 500 MG/100 ML BAG IVPB SCH ×2 (02:36→09:35)
[2018-05-20] MEDS: Insulin LISPRO 300 UNITS/3 ML VIAL SQ SCH ×4 (07:43→20:40)
[2018-05-20] MEDS: Apixaban 5 MG TABLET PO SCH ×2 (09:36→20:43)
[2018-05-20] MEDS: Aspirin Enteric Coated 81 MG Tablet PO SCH (09:36)
[2018-05-20] MEDS: Ertapenem 1,000 MG in 0.9 % Sodium Chloride Mini Bag 100 ML IVPB SCH (10:45)
[2018-05-20] MEDS: Ondansetron 4 MG/2 ML VIAL IVP PRN (11:28)
[2018-05-20 11:46] LABS: Campylobacter by PCR Not detected (Not detect)
--- NOTE | 2018-05-20 11:46 | Internal Med Progress Note ---
<Gunjan Edwards - Last Filed: 05/20/18 11:55> Hospitalist Progress Note - Encounter Date of Encounter: 05/20/18 - Exam Vitals: Temp Pulse Resp BP Pulse Ox 97.6 F 79 17 102/56 97 05/20/18 11:49 05/20/18 11:49 05/20/18 11:49 05/20/18 11:49 05/20/18 11:49 - Assessment and Plan (1) DVT prophylaxis Current Visit: No Status: Acute (2) Acute on chronic diastolic heart failure Current Visit: No Status: Chronic (3) Morbid obesity Current Visit: No Status: Chronic (4) Coronary artery disease Current Visit: No Status: Chronic (5) Atrial fibrillation Current Visit: No Status: Chronic (6) Diabetes Current Visit: No Status: Chronic (7) Anemia Current Visit: No Status: Acute (8) Dehydration Current Visit: Yes Status: Acute (9) Sacral decubitus ulcer, stage II Current Visit: No Status: Acute (10) Debility Current Visit: No Status: Acute (11) Sacral decubitus ulcer Current Visit: No Status: Acute (12) Colitis Current Visit: Yes Status: Acute (13) UTI (urinary tract infection) Current Visit: Yes Status: Acute (14) COPD (chronic obstructive pulmonary disease) Current Visit: Yes Status: Acute (15) History of CVA (cerebrovascular accident) Current Visit: Yes Status: Acute - Time Spent with Patient Total time spent is greater than 50% in coordination of care (as documented) at patient's floor/unit and/or counseling patient: Internal Medicine: Result - Labs CBC & Chem 7: 05/19/18 10:12 05/20/18 00:43 Labs: BMP 05/20/18 00:43 Sodium 137 Potassium 3.6 Chloride 109 H Carbon Dioxide 23 BUN 8 Creatinine 0.60 Glucose 111 H Calcium 8.6 - ABG Interpretation ABG results: PT/INR, D-dimer PT 24.2 Seconds (9.4-12.1) H 05/17/18 12:55 - Impressions Impressions KUB X-Ray 05/20/18 10:30 IMPRESSION: No acute process of the abdomen. D/ / Omega Patel MD / Omega Patel MD Interpreting Provider: Omega Patel MD Consult Discharge Plan - Plan Referrals: Nithin Hernandez [Primary Care Provider] - 05/24/18 10:00 am - Attending Attestation I examined this patient and my medical decision-making was reviewed with the Resident Physician Dr Wagoner. I agree with the documented findings, disposition and treatment plan as described except to the extent set forth below / addl details below MS Golden was admitted with colitis and acute on suspected chronic diastolic heart failure with le edema. Awake, denies abd pain, nausea or emesis. one loose bm in last >24hrs and described as brown, no blood, no mucus. tolerating full liquid diet without issue. le edema is unchanged and remains non pitting. encouraged increased activity. no sob, orthopnea, cp. gen- alert, awake,appears stated age, obese cv- reg rate and rhythm, normal s1,s2, no murmurs appreciated, dependent bl le edema lungs- ctabl, no wheezing, rhonchi or crackles, normal resp effort on room air abd- soft, non tender, no guarding, + distended, + bs neuro- AAOx3 Colitis, may be possibly infectious and has been treated as such this admission with rocpehin + flagyl (then confirmed has taken cipro in past without allergic reaction and changed to cipr + flagy), clinically improving. -stool panel + cdiff, precautions -full liquid diet -consulted gi as ct scan notes this may be infectious or malignancy and rec for cscope -have consulted ID for UTI below, change made 05/20 to ertapenem given ucx results, now with + cdiff will d/w pharmacy recommended abx choice for cdiff in this setting while await ID recs -kub for ab distension and normal Possible UTI with hx of utis and MRDO -unclear with current cx results if this could be colonization or active infection- -+ c freundii and only abx sensitive to without allergy to is invanz, which she was treated with in january as well -invanz, d/w pharm re abx choices while awaiting id consult as above Acute on Chronic diastolic chf, resolved - she appeared intravascularly depleted but fluid overload on admission exam and cxr as noted in previous providers notes, cautious fluids this admit -a this time, CHF exacerbation resolved on my physical exam, this may have simply been dependent edema/lymphedema -encourage oral intake over addl ivfs, albumin dose given hypoalbuminemia and delfin hose to be applied 05/19 Cirrhosis on imaging- pt was unaware of this diagnosis- she will require outpt fu for further work up Pelvic mass, known to pt, diagnosed in november with most recent us injune, she is following routinely with pcp for this and rec to refer to obstetrician and gynaecologist as outpt chronic sacral decub ulcer- wound care <Dm Wagonerew - Last Filed: 05/20/18 16:36> Hospitalist Progress Note - Encounter Date of Encounter: 05/20/18 Time of Encounter: 15:00 - Subjective Interval History: Patient was seen and examined at bedside this morning. She states overall she is feeling okay however does admit that her chronic medical problems are wearing on her. She states that she has experience and no abdominal pain and has had 1 bowel movement this morning which the nurse it was not watery. She denies any symptoms of nausea, vomiting, fevers, chills. She is not experiencing any dysuria at this time and has a Sanchez catheter in place. She does still admit to leg swelling which she feels is the same as yesterday. - Exam Vitals: Temp Pulse Resp BP Pulse Ox 97.7 F 71 16 102/68 96 05/20/18 06:29 05/20/18 06:29 10 06:29 05/20/18 06:29 05/20/18 06:29 Exam: Gen.: female lying in bed. Not in acute distress, resting comfortably in bed HEENT: Moist mucous membranes some dry lips. Normocephalic, atraumatic Cardiac: RRR, no murmur, +S1/S2 Pulmonary: CTA bilaterally without evidence of wheezes, rhonchi, rales. Abdomen: soft, nontender, BS noted, no guarding, no rebound. Moderately distended with tympanic percussion Extremities: 1+ Bilateral lower extremity nonpitting edema. There is a 6 cm asymmetrical scaly lesion on her left lower extremity. It is dry and not tender or warm. Neuro: A&Ox3, moves all extremities, no focal deficits Psych: Appropriate mood and behavior - Assessment and Plan (1) Colitis Current Visit: Yes Status: Acute Assessment and Plan: -2/2 infectious etiology -C diff unlikely due to improvement in bowel movements, however C. difficile toxin did return positive this morning -CT abdomen/pelvis 05/17 showed findings consistent with colitis, but could not rule out underlying malignancy -Patient has had multiple episodes of diarrhea for which she has needed hospital admission. Likely a chronic issue -Patient's diarrhea has improved. She denies having a bowel movement today which was not watery -Does not meet sepsis criteria. Has WBC 6.2, is not tachycardic or tachypnic, and has remained afebrile - GI panel positive for C. difficile Plan: -Continue with IV Flagyl day 3 - Antibiotics changed today from Cipro, Flagyl to ertapenem for UTI as below and oral vancomycin as per below. -We will attempt to escalate diet to soft mechanical today -GI consulted. Appreciate recommendations regarding possible underlying malignancy - Infectious disease consulted today, appreciate recommendations I personally spoke to pharmacy regarding antibiotic recommendations as infectious disease we will monitor the patient until Tuesday. We agreed that ertapenem would be appropriate to cover her urinary tract infection however he recommended starting oral vancomycin to cover the C. difficile colitis. Her symptoms are clinically improving however we will continue until infectious disease is able to make recommendations. (2) UTI (urinary tract infection) Current Visit: Yes Status: Acute Assessment and Plan: -Urine culture 05/17 growing Proteus and enterococcus species MDRO -Patient denying dysuria, urinary hesitancy, urinary urgency - Sanchez catheter with debbie urine and sediment. -WBC 8.1 at admission and is 6.2 yesterday. Has remained afebrile -Patient has multiple antibiotic allergies including Bactrim and Zosyn which Proteus is sensitive to. We will start ertapenem as she has received this in the past and it is sensitive to it. 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 Patient is currently asymptomatic. Possibility that this is colonizing organism. - Sanchez placed in ED. - Blood cultures drawn on admission negative for growth Plan: -Stop ceftriaxone 2g. 3 days given, stop Cipro -Start ertapenem as she has multidrug resistant Proteus and this is the only sensitive abx that she is not allergic to. - Enterococcus sensitivities pending - Consult to infectious disease, appreciate recommendations Given that she has had these organisms in urine multiple times in the past, we will consult infectious disease for their recommendations. It is a possibility that she has colonized bacteria however we will continue antibiotics until recommendations from infectious disease are made. (3) Acute on chronic diastolic heart failure Current Visit: Yes Status: Chronic Assessment and Plan: -Chest x-ray 05/17 showed pulmonary edema suggestive of CHF exacerbation -ECHO 05/18/18 showed EF 60% with mild LV diastolic dysfunction - Patient is currently tolerating room air without respiratory complaints - Lungs are clear on physical examination this afternoon -BL LE remain edematous however they are nonpitting and likely related to chronic lymphedema. - BNP of 181 which is similar to recent presentations and patient is notably morbidly obese -- At this time, it appears as though acute exacerbation has resolved Plan: -Continue on fluid and salt restriction -We will attempt to escalate to soft mechanical diet today -TAMARA wrap bilateral lower extremities. Elevate legs while sitting (4) Morbid obesity Current Visit: Yes Status: Chronic Assessment and Plan: Advised lifestyle modifications We did discuss diet today and patient voiced understanding (5) Coronary artery disease Current Visit: Yes Status: Chronic Assessment and Plan: No complaints of chest pain Continue home aspirin (6) Atrial fibrillation Current Visit: Yes Status: Chronic Assessment and Plan: Rate controlled since admission -Currently in NSR -HR 66 -CHADSVASC score 8 Plan: -Continue on eliquis 5mg BID -Continue on metoprolol tartrate 12.5mg BID (7) Diabetes Current Visit: Yes Status: Chronic Assessment and Plan: -Blood sugars well controlled while inpatient -Hgb A1c 5.3 on 01/29/2018 -Glucose 111 this morning Plan: -Continue low dose SSI (8) Anemia Current Visit: Yes Status: Acute Assessment and Plan: Patient is at baseline H/H Continue monitor while on Eliquis (9) Dehydration Current Visit: Yes Status: Acute Assessment and Plan: Secondary to chronic diarrhea and poor oral intake We did discuss diet and she will agreed to increase her oral intake with de- escalation of her diet She does appear to be better hydrated since admission. We will continue monitor (10) Sacral decubitus ulcer, stage II Current Visit: Yes Status: Chronic Assessment and Plan: Consult made to Wound Care. Present on admission (11) Debility Current Visit: Yes Status: Acute Assessment and Plan: PT/OT (12) COPD (chronic obstructive pulmonary disease) Current Visit: Yes Status: Chronic Assessment and Plan: Not in acute exacerbation. Continue home medications (13) History of CVA (cerebrovascular accident) Current Visit: Yes Status: Acute Assessment and Plan: Currently on Eliquis and aspirin. (14) DVT prophylaxis Current Visit: Yes Status: Acute Assessment and Plan: On Eliquis as above DVT Prophylaxis: On home eliquis - Time Spent with Patient Total time spent is greater than 50% in coordination of care (as documented) at patient's floor/unit and/or counseling patient: Internal Medicine: Result - Labs CBC & Chem 7: 05/19/18 10:12 05/20/18 00:43 Labs: BMP 05/20/18 00:43 Sodium 137 Potassium 3.6 Chloride 109 H Carbon Dioxide 23 BUN 8 Creatinine 0.60 Glucose 111 H Calcium 8.6 - ABG Interpretation ABG results: PT/INR, D-dimer PT 24.2 Seconds (9.4-12.1) H 05/17/18 12:55 - Impressions Impressions KUB X-Ray 05/20/18 10:30 IMPRESSION: No acute process of the abdomen. D/ / Omega Patel MD / Omega Patel MD Interpreting Provider: Omega Patel MD <Gunjan Edwards - Last Filed: 05/20/18 11:55> (4) Coronary artery disease Qualifiers: Coronary Disease-Associated Artery/Lesion type: unspecified vessel or lesion type [place] vs. transplanted heart: eek heart Associated angina: angina presence unspecified Qualified Code(s): I25.10 - Atherosclerotic heart disease of eek coronary artery without angina pectoris (5) Atrial fibrillation Qualifiers: Atrial fibrillation type: unspecified Qualified Code(s): I48.91 - Unspecified atrial fibrillation (6) Diabetes Qualifiers: Diabetes mellitus type: type 2 Diabetes mellitus hammer runner insulin use: without mcfp use Diabetes mellitus complication status: without complication Qualified Code(s): E11.9 - Type 2 diabetes mellitus without complications (7) Anemia Qualifiers: Anemia type: unspecified type Qualified Code(s): D64.9 - Anemia, unspecified (11) Sacral decubitus ulcer Qualifiers: Pressure injury stage: stage 2 Qualified Code(s): L89.152 - Pressure ulcer of sacral region, stage 2 (13) UTI (urinary tract infection) Qualifiers: Urinary tract infection type: acute cystitis Hematuria presence: with hematuria Qualified Code(s): N30.01 - Acute cystitis with hematuria (14) COPD (chronic obstructive pulmonary disease) Qualifiers: COPD type: unspecified COPD Qualified Code(s): J44.9 - Chronic obstructive pulmonary disease, unspecified <Harpreet Wagoner - Last Filed: 05/20/18 16:36> (2) UTI (urinary tract infection) Qualifiers: Urinary tract infection type: acute cystitis Hematuria presence: with hematuria Qualified Code(s): N30.01 - Acute cystitis with hematuria (5) Coronary artery disease Qualifiers: Coronary Disease-Associated Artery/Lesion type: unspecified vessel or lesion type [place] vs. transplanted heart: eek heart Associated angina: angina presence unspecified Qualified Code(s): I25.10 - Atherosclerotic heart disease of [place] coronary artery without angina pectoris (6) Atrial fibrillation Qualifiers: Atrial fibrillation type: paroxysmal Qualified Code(s): I48.0 - Paroxysmal atrial fibrillation (7) Diabetes Qualifiers: Diabetes mellitus type: type 2 Diabetes mellitus mcfp insulin use: without mcfp use Diabetes mellitus complication status: without complication Qualified Code(s): E11.9 - Type 2 diabetes mellitus without complications (8) Anemia Qualifiers: Anemia type: unspecified type Qualified Code(s): D64.9 - Anemia, unspecified (12) COPD (chronic obstructive pulmonary disease) Qualifiers: COPD type: unspecified COPD Qualified Code(s): J44.9 - Chronic obstructive pulmonary disease, unspecified
[2018-05-20 11:47] LABS: Adenovirus F 40/41 PCR Not detected (Not detect); Astrovirus PCR Not detected (Not detect); Cryptosporidium by PCR Not detected (Not detect); Cyclospora cayetanensis PCR Not detected (Not detect); E. coli O157 by PCR Not detected (Not detect); Entamoeba histolytica PCR Not detected (Not detect); Enteroaggregative E.coli(EAEC) Not detected (Not detect); Enteropathogenic E.coli(EPEC) Not detected (Not detect); Enterotoxigenic E.coli (ETEC) Not detected (Not detect); Giardia lamblia PCR Not detected (Not detect); Norovirus GI/GII PCR Not detected (Not detect); Plesiomonas shigelloides PCR Not detected (Not detect); Rotavirus A PCR Not detected (Not detect); Salmonella PCR Not detected (Not detect); Sapovirus PCR Not detected (Not detect); Shig/EnteroinvasiveE coli EIEC Not detected (Not detect); Shigalike tox-prod E coli STEC Not detected (Not detect); Vibrio PCR Not detected (Not detect); Vibrio cholerae PCR Not detected (Not detect); Yersinia enterocolitica PCR Not detected (Not detect)
[2018-05-20 11:49] LABS: C.difficile Toxin A/B by PCR DETECTED (Not detect)
[2018-05-20] MEDS: Vancomycin Oral Soln 125 MG/2.5 ML UDC PO SCH ×3 (14:44→20:44)
[2018-05-21 03:40] LABS: Basophils % 0.4 %; Eosinophils # 0.5 K/mcL (0.0-0.6); Eosinophils % 9.7 %; Hematocrit 26.9 % (35.3-44.9); Hemoglobin 8.4 g/dL (11.5-15.4); Immature Granulocytes % 0.4 % (0-4); Lymphocytes # 1.4 K/mcL (0.6-4.6); Lymphocytes % 29.7 %; Mean Corpuscular HGB Conc 31.2 g/dL (31.6-35.5); Mean Corpuscular Hemoglobin 27.1 pg (28.0-33.3); Mean Corpuscular Volume 86.8 fL (83.0-100.0); Mean Platelet Volume 11.2 fL (9.4-12.4); Monocytes # 0.3 K/mcL (0.0-1.3); Monocytes % 6.9 %; Platelet Count 126 K/mcL (140-400); Red Cell Distribution Width 15.6 % (11.5-14.5); Segmented Neutrophils % 52.9 %
[2018-05-21 03:43] LABS: Neutrophils # 2.4 K/mcL (1.6-8.9)
[2018-05-21 03:57] LABS: Alanine Aminotransferase 10 Units/L (7-52); Albumin 2.7 g/dL (3.5-5.7); Albumin/Globulin Ratio 0.7 (1.1-2.2); Alkaline Phosphatase 109 Units/L (34-104); Aspartate Amino Transferase 23 Units/L (13-39); BUN/Creatinine Ratio 11 (6-26); Bilirubin,Total 0.6 mg/dL (0.3-1.0); Blood Urea Nitrogen 7 mg/dL (8-23); Calcium 8.2 mg/dL (8.6-10.3); Carbon Dioxide 23 mEq/L (23-29); Chloride 110 mEq/L (98-107); Globulin 3.7 g/dL (2.4-3.5); Glucose 119 mg/dL (70-105); Osmolality,Calculated 283 (280-300); Potassium 3.7 mEq/L (3.5-5.1); Sodium 137 mEq/L (136-145); Total Protein 6.4 g/dL (6.4-8.9); eGFR For Non-African Americans > 60 (> 60)
[2018-05-21 04:15] LABS: Platelet Estimate Normal (Normal); Reactive Lymphocytes Present (Not Present)
[2018-05-21] MEDS: Insulin LISPRO 300 UNITS/3 ML VIAL SQ SCH ×4 (08:18→21:35)
--- NOTE | 2018-05-21 08:26 | Internal Med Progress Note ---
<Harpreet Wagoner - Last Filed: 05/21/18 15:45> Hospitalist Progress Note - Encounter Date of Encounter: 05/21/18 Time of Encounter: 13:00 - Subjective Interval History: Patient was seen and examined at bedside this morning. She states that overall she is doing very well and feels like she may have turned a corner. She denies any abdominal pain, nausea, vomiting or bowel movements yet this morning. She states her swelling is about the same and she is tolerating the escalation of her diet well without complaints. She denies any urinary symptoms but does note a dark sediment in her urine. - Exam Vitals: Temp Pulse Resp BP Pulse Ox 97.4 F L 79 15 110/68 95 05/21/18 07:46 05/21/18 07:46 05/21/18 07:46 05/21/18 07:46 05/21/18 07:46 Exam: Gen.: female lying in bed. Not in acute distress, resting comfortably in bed HEENT: Moist mucous membranes some dry lips. Normocephalic, atraumatic Cardiac: RRR, no murmur, +S1/S2 Pulmonary: Mild wheezes appreciated on auscultation, more prominent on left Abdomen: soft, nontender, BS noted, no guarding, no rebound. Improve distention from previous exam : Sanchez catheter in place with dark colored urine with evidence of sediment. Change from previous Extremities: 1+ Bilateral lower extremity nonpitting edema. Neuro: A&Ox3, moves all extremities, no focal deficits Psych: Appropriate mood and behavior - Assessment and Plan (1) Colitis Current Visit: Yes Status: Acute Assessment and Plan: -2/2 infectious etiology -C diff unlikely due to improvement in bowel movements, however C. difficile toxin did return positive -CT abdomen/pelvis 05/17 showed findings consistent with colitis, but could not rule out underlying malignancy -Patient has had multiple episodes of diarrhea for which she has needed hospital admission. Likely a chronic issue -Patient's diarrhea has improved. She denies having a bowel movement today -Does not meet sepsis criteria. Has WBC 6.2, is not tachycardic or tachypnic, and has remained afebrile - GI panel positive for C. difficile Plan: -Continue oral vancomycin, day #2 -Continue soft mechanical diet -GI consulted. Appreciate recommendations regarding possible underlying malignancy - Infectious disease consulted, appreciate recommendations I personally spoke to pharmacy regarding antibiotic recommendations as infectious disease we will monitor the patient until Tuesday. We agreed that ertapenem would be appropriate to cover her urinary tract infection however he recommended starting oral vancomycin to cover the C. difficile colitis. Her symptoms are clinically improving however we will continue until infectious disease is able to make recommendations. (2) UTI (urinary tract infection) Current Visit: Yes Status: Acute Assessment and Plan: -Urine culture 05/17 growing Proteus and enterococcus species MDRO -Patient denying dysuria, urinary hesitancy, urinary urgency - Sanchez catheter with dark urine and sediment. -WBC 8.1 at admission and is 4.6 this morning. Has remained afebrile -Patient has multiple antibiotic allergies including Bactrim and Zosyn which Proteus is sensitive to. We will start ertapenem as she has received this in the past and it is sensitive to it. 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 Patient is currently asymptomatic. Possibility that this is colonizing organism. - Sanchez placed in ED. - Blood cultures drawn on admission negative for growth Plan: -Continue ertapenem, day #2 - Enterococcus sensitivities pending - Consult to infectious disease, appreciate recommendations Given that she has had these organisms in urine multiple times in the past, we will consult infectious disease for their recommendations. It is a possibility that she has colonized bacteria however we will continue antibiotics until recommendations from infectious disease are made. (3) Acute on chronic diastolic heart failure Current Visit: Yes Status: Resolved Assessment and Plan: -Chest x-ray 05/17 showed pulmonary edema suggestive of CHF exacerbation -ECHO 05/18/18 showed EF 60% with mild LV diastolic dysfunction - Patient is currently tolerating room air without respiratory complaints - Lungs show mild wheezing on auscultation this afternoon -BL LE remain edematous however they are nonpitting and likely related to chronic lymphedema. - BNP of 181 which is similar to recent presentations and patient is notably morbidly obese -- At this time, it appears as though acute exacerbation has resolved Plan: -Continue on fluid and salt restriction -We will attempt to escalate to soft mechanical diet today -TAMARA wrap bilateral lower extremities. Elevate legs while sitting - We will start duo nebs and albuterol for wheezing (4) Morbid obesity Current Visit: Yes Status: Chronic Assessment and Plan: Advised lifestyle modifications We did discuss diet today and patient voiced understanding (5) Coronary artery disease Current Visit: Yes Status: Chronic Assessment and Plan: No complaints of chest pain Continue home aspirin (6) Atrial fibrillation Current Visit: Yes Status: Chronic Assessment and Plan: Rate controlled since admission -Currently in NSR -HR 87 -CHADSVASC score 8 Plan: -Continue on eliquis 5mg BID -Continue on metoprolol tartrate 12.5mg BID (7) Diabetes Current Visit: Yes Status: Chronic Assessment and Plan: -Blood sugars well controlled while inpatient -Hgb A1c 5.3 on 01/29/2018 -Glucose 109 this morning Plan: -Continue low dose SSI (8) Anemia Current Visit: Yes Status: Chronic Assessment and Plan: Patient is at baseline H/H Most recent hemoglobin of 8.4 this morning which is mildly decreased from previous. She has been increasing her oral intake today however Patient is denying melena, hematochezia Doxepin urine this morning unlikely bleeding however will obtain repeat urinalysis to evaluate Continue monitor while on Eliquis (9) Dehydration Current Visit: Yes Status: Acute Assessment and Plan: Secondary to chronic diarrhea and poor oral intake Continue to encourage oral intake She does appear to be better hydrated since admission. We will continue monitor (10) Sacral decubitus ulcer, stage II Current Visit: Yes Status: Chronic Assessment and Plan: Consult made to Wound Care. Present on admission (11) Debility Current Visit: Yes Status: Acute Assessment and Plan: PT/OT (12) COPD (chronic obstructive pulmonary disease) Current Visit: Yes Status: Chronic Assessment and Plan: Not in acute exacerbation. Continue home medications Continue inhalers this morning as above (13) History of CVA (cerebrovascular accident) Current Visit: Yes Status: Acute Assessment and Plan: Currently on Eliquis and aspirin. (14) DVT prophylaxis Current Visit: Yes Status: Acute Assessment and Plan: On Eliquis as above - Time Spent with Patient Total time spent is greater than 50% in coordination of care (as documented) at patient's floor/unit and/or counseling patient: Internal Medicine: Result - Labs CBC & Chem 7: 05/21/18 03:12 05/21/18 03:12 Labs: Short CBC 05/21/18 Range/Units 03:12 WBC 4.6 (4.3-11.1) K/mcL Hgb 8.4 L (11.5-15.4) g/dL Hct 26.9 L (35.3-44.9) % Plt Count 126 L (140-400) K/mcL Neutrophils # 2.4 (1.6-8.9) K/mcL BMP 05/21/18 03:12 Sodium 137 Potassium 3.7 Chloride 110 H Carbon Dioxide 23 BUN 7 L Creatinine 0.61 Glucose 119 H Calcium 8.2 L Liver Function 05/21/18 Range/Units 03:12 Total Bilirubin 0.6 (0.3-1.0) mg/dL AST 23 (13-39) Units/L ALT 10 (7-52) Units/L Alkaline Phosphatase 109 H (34-104) Units/L Albumin 2.7 L (3.5-5.7) g/dL - ABG Interpretation ABG results: PT/INR, D-dimer PT 24.2 Seconds (9.4-12.1) H 05/17/18 12:55 - Impressions Impressions KUB X-Ray 05/20/18 10:30 IMPRESSION: No acute process of the abdomen. D/ / 05/20/2018 12:12:19 Omega Patel MD / remy Interpreting Provider: Omega Patel MD Consult Discharge Plan - Plan Referrals: Nithin Hernandez [Primary Care Provider] - 05/24/18 10:00 am <Gunjan Edwards - Last Filed: 05/21/18 16:00> Hospitalist Progress Note - Encounter Date of Encounter: 05/21/18 - Exam Vitals: Temp Pulse Resp BP Pulse Ox 97.4 F L 79 15 110/68 95 05/21/18 07:46 05/21/18 07:46 05/21/18 07:46 05/21/18 07:46 05/21/18 07:46 - Assessment and Plan (1) DVT prophylaxis Current Visit: Yes Status: Acute (2) Acute on chronic diastolic heart failure Current Visit: Yes Status: Resolved (3) Morbid obesity Current Visit: Yes Status: Chronic (4) Coronary artery disease Current Visit: Yes Status: Chronic (5) Atrial fibrillation Current Visit: Yes Status: Chronic (6) Diabetes Current Visit: Yes Status: Chronic (7) Anemia Current Visit: Yes Status: Chronic (8) Dehydration Current Visit: Yes Status: Acute (9) Sacral decubitus ulcer, stage II Current Visit: Yes Status: Chronic (10) Debility Current Visit: Yes Status: Acute (11) Colitis Current Visit: Yes Status: Acute (12) UTI (urinary tract infection) Current Visit: Yes Status: Acute (13) COPD (chronic obstructive pulmonary disease) Current Visit: Yes Status: Chronic (14) History of CVA (cerebrovascular accident) Current Visit: Yes Status: Acute - Time Spent with Patient Total time spent is greater than 50% in coordination of care (as documented) at patient's floor/unit and/or counseling patient: Internal Medicine: Result - Labs CBC & Chem 7: 05/21/18 03:12 05/21/18 03:12 Labs: Short CBC 05/21/18 Range/Units 03:12 WBC 4.6 (4.3-11.1) K/mcL Hgb 8.4 L (11.5-15.4) g/dL Hct 26.9 L (35.3-44.9) % Plt Count 126 L (140-400) K/mcL Neutrophils # 2.4 (1.6-8.9) K/mcL BMP 05/21/18 03:12 Sodium 137 Potassium 3.7 Chloride 110 H Carbon Dioxide 23 BUN 7 L Creatinine 0.61 Glucose 119 H Calcium 8.2 L Liver Function 05/21/18 Range/Units 03:12 Total Bilirubin 0.6 (0.3-1.0) mg/dL AST 23 (13-39) Units/L ALT 10 (7-52) Units/L Alkaline Phosphatase 109 H (34-104) Units/L Albumin 2.7 L (3.5-5.7) g/dL - ABG Interpretation ABG results: PT/INR, D-dimer PT 24.2 Seconds (9.4-12.1) H 05/17/18 12:55 - Attending Attestation C Diff Colitis, clinically improving -treated with rocpehin + flagyl earlier this admission (then confirmed has taken cipro in past without allergic reaction and changed to cipr + flagyl by previous provider, this was prior to c diff being checked by the current provider team) -oral vanc -stool panel + cdiff, precautions -advance diet as tolerated -consulted gi as ct scan notes this may be infectious or malignancy and rec for cscope, eval remains pending -have consulted ID for UTI below, change made 05/20 to ertapenem given ucx results, now with + cdiff -kub for ab distension 05/19 and normal -bl cxs ngtd Possible UTI with hx of utis and MRDO -unclear with current cx results if this could be colonization or active infection- -+ c freundii and only abx sensitive to without allergy to is invanz, which she was treated with in january as well -invanz, d/w pharm re abx choices while awaiting id consult as above Acute on Chronic diastolic chf, resolved - she appeared intravascularly depleted but fluid overload on admission exam and cxr as noted in previous providers notes, cautious fluids this admit -a this time, CHF exacerbation resolved on my physical exam, this may have simply been dependent edema/lymphedema -encourage oral intake over addl ivfs, albumin dose given hypoalbuminemia and delfin hose to be applied 05/19 but she is declining delfin hose Acute on Chronic Anemia, normocytic, on Eliquis Thrombocytopenia, plts down trend to 120s -conts to down trend with hgb now in 8s 05/20-- cont eliquis at this time, no identifiable active bleeding, BP remains at baseline low normotensive, asx -inr 2.1 on admit, repeat -ua with moderate blood on admission, repeat with decreased hgb -check fobt Cirrhosis on imaging- pt was unaware of this diagnosis- she will require outpt fu for further work up Pelvic mass, known to pt, diagnosed in november with most recent us injune, she is following routinely with pcp for this and rec to refer to a auxiliary as outpt chronic sacral decub ulcer- wound care <Harpreet Wagoner - Last Filed: 05/21/18 15:45> (2) UTI (urinary tract infection) Qualifiers: Urinary tract infection type: acute cystitis Hematuria presence: without hematuria Qualified Code(s): N30.00 - Acute cystitis without hematuria (5) Coronary artery disease Qualifiers: Coronary Disease-Associated Artery/Lesion type: unspecified vessel or lesion type [place] vs. 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
[2018-05-21] MEDS: Apixaban 5 MG TABLET PO SCH ×2 (09:16→21:40)
[2018-05-21] MEDS: Ertapenem 1,000 MG in 0.9 % Sodium Chloride Mini Bag 100 ML IVPB SCH (09:16)
[2018-05-21] MEDS: Aspirin Enteric Coated 81 MG Tablet PO SCH (09:16)
[2018-05-21] MEDS: Vancomycin Oral Soln 125 MG/2.5 ML UDC PO SCH ×4 (09:19→21:41)
[2018-05-21 17:30] LABS: Bilirubin,Urine Moderate (Negative); Blood,Urine Large (Negative); Clarity,Urine Cloudy (Clear); Color,Urine Red (Yellow); Glucose,Urine (UA) Normal (Normal); Ketones,Urine Trace mg/dL (Negative); Leukocyte Esterase,Urine Moderate (Negative); Nitrite,Urine Positive (Negative); Protein,Urine >=300 mg/dL (Neg-Trace); Specific Gravity,Urine 1.022 (1.010-1.025); Urobilinogen,Urine Normal (Normal)
[2018-05-21] MEDS: Ipratropium/Albuterol Neb 3 ML IH PRN (22:01)
[2018-05-22 01:40] LABS: INR 3.1; Prothrombin Time 35.3 Seconds (9.4-12.1)
[2018-05-22 01:46] LABS: Basophils % 0.5 %; Eosinophils # 0.4 K/mcL (0.0-0.6); Eosinophils % 7.3 %; Hematocrit 30.7 % (35.3-44.9); Hemoglobin 9.5 g/dL (11.5-15.4); Immature Granulocytes % 0.2 % (0-4); Lymphocytes # 1.9 K/mcL (0.6-4.6); Lymphocytes % 33.9 %; Mean Corpuscular HGB Conc 30.9 g/dL (31.6-35.5); Mean Corpuscular Hemoglobin 27.4 pg (28.0-33.3); Mean Corpuscular Volume 88.5 fL (83.0-100.0); Mean Platelet Volume 10.9 fL (9.4-12.4); Monocytes # 0.4 K/mcL (0.0-1.3); Neutrophils # 2.9 K/mcL (1.6-8.9); Platelet Count 133 K/mcL (140-400); Red Blood Count 3.47 M/mcL (3.82-4.97); Red Cell Distribution Width 15.7 % (11.5-14.5); Segmented Neutrophils % 51.1 %
[2018-05-22 01:55] LABS: Alanine Aminotransferase 11 Units/L (7-52); Albumin 2.9 g/dL (3.5-5.7); Albumin/Globulin Ratio 0.7 (1.1-2.2); Alkaline Phosphatase 117 Units/L (34-104); Aspartate Amino Transferase 25 Units/L (13-39); BUN/Creatinine Ratio 13 (6-26); Bilirubin,Total 0.6 mg/dL (0.3-1.0); Blood Urea Nitrogen 8 mg/dL (8-23); Calcium 8.4 mg/dL (8.6-10.3); Carbon Dioxide 23 mEq/L (23-29); Chloride 109 mEq/L (98-107); Glucose 117 mg/dL (70-105); Osmolality,Calculated 287 (280-300); Potassium 3.3 mEq/L (3.5-5.1); Sodium 139 mEq/L (136-145); Total Protein 6.9 g/dL (6.4-8.9); eGFR For Non-African Americans > 60 (> 60)
[2018-05-22 02:58] LABS: Large Platelets Present (Not Present); Platelet Estimate Normal (Normal); Reactive Lymphocytes Present (Not Present)
--- NOTE | 2018-05-22 08:42 | Internal Med Progress Note ---
<Gunjan Edwards - Last Filed: 05/22/18 12:49> Hospitalist Progress Note - Encounter Date of Encounter: 05/22/18 - Exam Vitals: Temp Pulse Resp BP Pulse Ox 98.0 F 86 15 86/54 96 05/22/18 11:30 05/22/18 11:30 05/22/18 11:30 05/22/18 11:30 05/22/18 11:30 - Assessment and Plan (1) DVT prophylaxis Current Visit: Yes Status: Acute (2) Acute on chronic diastolic heart failure Current Visit: Yes Status: Resolved (3) Morbid obesity Current Visit: Yes Status: Chronic (4) Coronary artery disease Current Visit: Yes Status: Chronic (5) Atrial fibrillation Current Visit: Yes Status: Chronic (6) Diabetes Current Visit: Yes Status: Chronic (7) Anemia Current Visit: Yes Status: Chronic (8) Dehydration Current Visit: Yes Status: Acute (9) Sacral decubitus ulcer, stage II Current Visit: Yes Status: Chronic (10) Debility Current Visit: Yes Status: Acute (11) Colitis Current Visit: Yes Status: Acute (12) UTI (urinary tract infection) Current Visit: Yes Status: Acute (13) COPD (chronic obstructive pulmonary disease) Current Visit: Yes Status: Chronic (14) History of CVA (cerebrovascular accident) Current Visit: Yes Status: Acute - Time Spent with Patient Total time spent is greater than 50% in coordination of care (as documented) at patient's floor/unit and/or counseling patient: Internal Medicine: Result - Labs CBC & Chem 7: 05/22/18 00:56 05/22/18 00:56 Labs: Short CBC 05/22/18 Range/Units 00:56 WBC 5.7 (4.3-11.1) K/mcL Hgb 9.5 L (11.5-15.4) g/dL Hct 30.7 L (35.3-44.9) % Plt Count 133 L (140-400) K/mcL Neutrophils # 2.9 (1.6-8.9) K/mcL BMP 05/22/18 00:56 Sodium 139 Potassium 3.3 L Chloride 109 H Carbon Dioxide 23 BUN 8 Creatinine 0.63 Glucose 117 H Calcium 8.4 L Liver Function 05/22/18 Range/Units 00:56 Total Bilirubin 0.6 (0.3-1.0) mg/dL AST 25 (13-39) Units/L ALT 11 (7-52) Units/L Alkaline Phosphatase 117 H (34-104) Units/L Albumin 2.9 L (3.5-5.7) g/dL Urine 05/21/18 Range/Units 17:09 Urine Color Red A (Yellow) Urine Clarity Cloudy A (Clear) Urine pH 6.0 (5.0-8.0) pH Units Ur Specific [place] 1.022 (1.010-1.025) Urine Protein >=300 H (Neg-Trace) mg/dL Urine Glucose (UA) Normal (Normal) mg/dL - ABG Interpretation ABG results: PT/INR, D-dimer PT 35.3 Seconds (9.4-12.1) H 05/22/18 00:56 Consult Discharge Plan - Plan Referrals: Nithin Hernandez [Primary Care Provider] - 05/24/18 10:00 am - Attending Attestation I examined this patient and my medical decision-making was reviewed with the Resident Physician Dr Chavez. I agree with the documented findings, disposition and treatment plan as described except to the extent set forth below. Ms Golden was admitted with colitis and acute on suspected chronic diastolic heart failure with le edema. awake, no fevers or chilsl but 4 episodes of mushy diarrhea since bed last night. denies abd pain, nausea or emesis. urine remains brown with sediment. no cva tenderness. no sob, fatigue, wheezing, chest pain or pressure gen- alert, awake,appears stated age, obese cv- reg rate and rhythm, normal s1,s2, no murmurs appreciated, legs now wrapped lungs- ctabl, no wheezing, rhonchi or crackles, normal resp effort on room air abd- soft, mildly tender bl lqs, no guarding, + distended improved from yesterday no rigidity, + bs gu: go cath with brown muddy urine with sediment present in tubing neuro- AAOx3 C Diff Colitis -treated with rocpehin + flagyl earlier this admission (then confirmed has taken cipro in past without allergic reaction and changed to cipr + flagyl by previous provider, this was prior to c diff being checked by the current provider team) -oral vanc -gi eval pending -advance diet as tolerated -consulted gi as ct scan notes this may be infectious or malignancy and rec for cscope -have consulted ID for UTI below, change made 05/20 to ertapenem given ucx results, now with + cdiff -kub for ab distension 05/19 and normal -bl cxs ngtd Possible UTI with hx of utis and MRDO -unclear with current cx results if this could be colonization or active infection- -+ c freundii and only abx sensitive to without allergy to is invanz, which she was treated with in january as well -invanz, d/w pharm re abx choices while awaiting id consult as above -now with dark urine with sediment, UA reviewed + protein, blood and bili--will consult nephro , ?s/e invanz versus progressive infection or other renal etiology with possible need to image, will consult nephro for further assistance in work up/management Acute on Chronic diastolic chf, resolved - she appeared intravascularly depleted but fluid overload on admission exam and cxr as noted in previous providers notes, cautious fluids this admit -a this time, CHF exacerbation resolved on my physical exam, this may have simply been dependent edema/lymphedema -encourage oral intake over addl ivfs, albumin dose given hypoalbuminemia and delfin hose Acute on Chronic Anemia, normocytic, on Eliquis Thrombocytopenia, now uptrending hgb and plts - cont eliquis at this time, no identifiable active bleeding, BP remains at baseline low normotensive, asx -inr 2.1 on admit, repeat 3.1 -ua with now large blood and fobt +--hgb stable at this time, will cont eliquis at this time bc of need for eliquis and stable hgb but needs close monitoring-- input from nephro and gi pending Cirrhosis on imaging- pt was unaware of this diagnosis- she will require outpt fu for further work up Pelvic mass, known to pt, diagnosed in november with most recent us injune, she is following routinely with pcp for this and rec to refer to [facility] as outpt chronic sacral decub ulcer- wound care <Fe Chavez - Last Filed: 05/22/18 17:27> Hospitalist Progress Note - Encounter Date of Encounter: 05/22/18 Time of Encounter: 02:17 - Subjective Interval History: Patient was examined while sitting in bedside chair. She states that her diarrhea has worsened. She had 3 bowel movements last night and 1 this morning. She describes them as being soft and mushy. She is tolerating soft diet without abdominal pain, nausea, or vomiting. She had shortness of breath last night requiring a breathing treatment. This morning, her shortness of breath has resolved. Patient states that the swelling in her legs has remained the same since admission. She denies nausea, vomiting, melena, hematachezia, dysuria, chest pain, light headedness, palpitations. - Exam Vitals: Temp Pulse Resp BP Pulse Ox 98.7 F 78 16 111/71 93 05/22/18 08:10 05/22/18 08:10 05/22/18 08:10 05/22/18 08:10 05/22/18 08:10 Exam: Gen.: female lying comfortably in bed, NAD HEENT: Normocephalic, atraumatic Cardiac: RRR, no murmur, normal S1/S2, legs wrapped up to the knees Pulmonary: CTAB, no wheezing Abdomen: soft, nontender, BS noted, mildly distended : Go catheter in place with dark colored urine with evidence of sediment Extremities: 1+ Bilateral lower extremity nonpitting edema. Neuro: A&Ox3, no focal deficits Psych: Appropriate mood and behavior - Assessment and Plan (1) Colitis Current Visit: No Status: Resolved Assessment and Plan: Secondary to infectious etiology, C. difficile versus other microorganisms C. difficile toxin positive, history of C. difficile infection previously Patient has had multiple episodes of diarrhea for which she has required hospitalization carcinoma likely chronic issue CT abdomen/pelvis 05/17 - moderate to severe wall thickening of the cecum, ascending colon, rectum concerning for colitis versus malignancy WBC 8.1 on presentation, 5.7 today Blood cultures 10/ - NGTD KUB 10/5 - negative for acute findings Continue oral vanc, day 3. GI recommended 6 weeks of total therapy Continue probiotic, GI recommends indefinitely Advance diet as tolerated GI following, recommending colonoscopy as an outpatient (2) Recurrent UTI (urinary tract infection) Current Visit: No Status: Acute Assessment and Plan: History of recurrent multidrug resistant UTIs Patient is asymptomatic which could represent colonization versus active infection Continues to have dark urine with sediment Continue ertapenem, day 3. Erythrocytouria is possible side effect. Will await ID and nephrology recommendations. (3) Acute on chronic diastolic heart failure Current Visit: Yes Status: Resolved Assessment and Plan: Clinically resolved. Intravascularly depleted but also fluid overloaded on presentation. 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 (6) Cirrhosis Current Visit: Yes Status: Acute Assessment and Plan: Likely NAF Fritz, no history of drug or alcohol abuse LFTs within normal limits Abdominal CT 05/17 - cirrhosis with unchanged moderate mesenteric edema Patient will need outpatient follow-up with GI (7) Atrial fibrillation Current Visit: Yes Status: Chronic Assessment and Plan: Patient has remained NSR while inpatient Rate controlled, HR 70 today CHADSVASC 8 Continue home Nestor Frederick Continue home metoprolol (8) Diabetes Current Visit: Yes Status: Chronic Assessment and Plan: A1c 5.3% on 01/30 Well-controlled during hospitalization Glucose 117 this morning Continue low-dose SSI DVT Prophylaxis: On home eliquis - Time Spent with Patient Total time spent is greater than 50% in coordination of care (as documented) at patient's floor/unit and/or counseling patient: Internal Medicine: Result - Labs CBC & Chem 7: 05/22/18 00:56 05/22/18 00:56 Labs: Short CBC 05/22/18 Range/Units 00:56 WBC 5.7 (4.3-11.1) K/mcL Hgb 9.5 L (11.5-15.4) g/dL Hct 30.7 L (35.3-44.9) % Plt Count 133 L (140-400) K/mcL Neutrophils # 2.9 (1.6-8.9) K/mcL BMP 05/22/18 00:56 Sodium 139 Potassium 3.3 L Chloride 109 H Carbon Dioxide 23 BUN 8 Creatinine 0.63 Glucose 117 H Calcium 8.4 L Liver Function 05/22/18 Range/Units 00:56 Total Bilirubin 0.6 (0.3-1.0) mg/dL AST 25 (13-39) Units/L ALT 11 (7-52) Units/L Alkaline Phosphatase 117 H (34-104) Units/L Albumin 2.9 L (3.5-5.7) g/dL Urine 05/21/18 Range/Units 17:09 Urine Color Red A (Yellow) Urine Clarity Cloudy A (Clear) Urine pH 6.0 (5.0-8.0) pH Units Ur Specific [place] 1.022 (1.010-1.025) Urine Protein >=300 H (Neg-Trace) mg/dL Urine Glucose (UA) Normal (Normal) mg/dL - ABG Interpretation ABG results: PT/INR, D-dimer PT 35.3 Seconds (9.4-12.1) H 05/22/18 00:56 <Gunjan Edwards - Last Filed: 05/22/18 12:49> (4) Coronary artery disease Qualifiers: Coronary Disease-Associated Artery/Lesion type: unspecified vessel or lesion type [place] vs. transplanted heart: [place] heart Associated angina: angina presence unspecified Qualified Code(s): I25.10 - Atherosclerotic heart disease of [place] coronary artery without angina pectoris (5) Atrial fibrillation Qualifiers: Atrial fibrillation type: paroxysmal Qualified Code(s): I48.0 - Paroxysmal atrial fibrillation (6) Diabetes Qualifiers: Diabetes mellitus type: type 2 Diabetes mellitus computer terminal operator insulin use: without computer terminal operator use Diabetes mellitus complication status: without complication Qualified Code(s): E11.9 - Type 2 diabetes mellitus without complications (7) Anemia Qualifiers: Anemia type: unspecified type Qualified Code(s): D64.9 - Anemia, unspecified (12) UTI (urinary tract infection) Qualifiers: Urinary tract infection type: acute cystitis Hematuria presence: without hematuria Qualified Code(s): N30.00 - Acute cystitis without hematuria (13) COPD (chronic obstructive pulmonary disease) Qualifiers: COPD type: unspecified COPD Qualified Code(s): J44.9 - Chronic obstructive pulmonary disease, unspecified <Fe Chavez - Last Filed: 05/22/18 17:27> (6) Cirrhosis Qualifiers: Qualified Code(s): K74.60 - Unspecified cirrhosis of liver (7) Atrial fibrillation Qualifiers: Atrial fibrillation type: paroxysmal Qualified Code(s): I48.0 - Paroxysmal atrial fibrillation (8) Diabetes Qualifiers: Diabetes mellitus type: type 2 Diabetes mellitus computer terminal operator insulin use: without computer terminal operator use Diabetes mellitus complication status: without complication Qualified Code(s): E11.9 - Type 2 diabetes mellitus without complications
[2018-05-22] MEDS: Insulin LISPRO 300 UNITS/3 ML VIAL SQ SCH ×4 (08:51→21:39)
[2018-05-22] MEDS: Aspirin Enteric Coated 81 MG Tablet PO SCH (09:44)
[2018-05-22] MEDS: Apixaban 5 MG TABLET PO SCH ×2 (09:44→21:37)
[2018-05-22] MEDS: Vancomycin Oral Soln 125 MG/2.5 ML UDC PO SCH ×4 (09:45→21:38)
[2018-05-22] MEDS: Ertapenem 1,000 MG in 0.9 % Sodium Chloride Mini Bag 100 ML IVPB SCH (09:45)
[2018-05-22] MEDS ORDERED: Potassium Effervescent 25 MEQ TABLET.EFF PO ONE (10:24)
--- NOTE | 2018-05-22 11:30 | Gastroenterology Consult Note ---
<Sheba Ureña - Last Filed: 05/22/18 14:41> Date of Encounter: 05/22/18 Time of Encounter: 10:40 - Assessment and plan (1) Colitis Status: Acute Assessment and plan: Colitis secondary to C diff versus malignancy. Recent antibiotic use. This is her 3rd time having C diff with last episode in December 2017. 3 days prior to admission she started having 4 loose watery bowel movements a day. -Abdominal CT demonstrated moderate to severe wall thickening of cecum, ascending colon, rectum concerning for colitis versus malignancy. Cirrhosis. -She reported having colonoscopy a little over 10 years ago which was normal. She denies family history of colon cancer. Denies weight loss, bloating, melena, hematachezia. -C diff positive on stool occult -WBC WNL -abdominal exam is soft, nontender, bowel sounds present, no guarding. She reports diarrhea is improving and is becoming more loose rather than liquid. Plan: continue oral vancomycin, will likely need treatment for 6weeks. recommend lactobacillus indefinitely. Ordered cholestyramine. Patient will need a colonoscopy and will plan to schedule outpatient. (2) Clostridium difficile diarrhea Status: Acute Assessment and plan: C diff positive on stool occult -plan as above (3) Cirrhosis Status: Acute Assessment and plan: Cirrhosis demonstrated by abdominal CT likely NAFLD. No history of alcohol or drug abuse. AST and ALT WNL albumin 2.9 platelets 133 Qualifiers: Qualified Code(s): K74.60 - Unspecified cirrhosis of liver (4) UTI (urinary tract infection) Status: Resolved Assessment and plan: Urinary tract infection demonstrated by urinalysis. With MDRO -management per primary team and infectious disease following Qualifiers: Urinary tract infection type: acute cystitis Hematuria presence: without hematuria Qualified Code(s): N30.00 - Acute cystitis without hematuria (5) Anemia Status: Chronic Assessment and plan: Anemia of chronic disease. Hemoglobin 9.5 (stable and is at baseline) Patient denied melena, hematochezia stool occult positive patient is on a look was for atrial fibrillation -will monitor H&H. No obvious active bleeding. Qualifiers: Anemia type: unspecified type Qualified Code(s): D64.9 - Anemia, u nspecified - Time Spent With Patient Total time spent is greater than 50% in coordination of care (as documented) at patient's floor/unit and/or counseling patient: GI History of Present Illness - Data of Consult Consult date: 05/19/18 Requesting Physician: Gunjan Edwards - Consult Narrative Reason for consult: Colitis versus colon mass on CT History of present illness: Ms. Golden is a 68 year old female with past medical history of atrial fibrillation, CHF, hypertension, COPD, CAD who presented to [facility] due to diarrhea. She was found to be C diff positive. Gastroe nterology was consulted due to abdominal CT demonstrating findings concerning for colitis versus malignancy. Patient stated that she developed diarrhea 3 days prior to admission. She was having 4 loose watery stools a day. The medium did not help. She has had C diff 2 other times with most recent time being and december 2017. She has been on antibiotics recently. She used to take a probiotic but no longer does. She denied fever, chills, abdominal pain, melena, hematachezia, weight loss. She did have nausea, anorexia, weakness. She had a colonoscopy over 10 years ago which was normal. She denied family history of colon cancer. Denied alcohol, tobacco, drug use. Past Med Surg Social Fam HX - Past Medical History Attestation: Yes The following information was validated with the patient. Source: patient Medical history: non-contributory, asthma, atrial fibrillation, CHF, COPD, coronary artery disease, CVA, kidney stones Additional medical history: recurrent UTI's Psychiatric history: anxiety, depression, panic disorder - Past Surgical History Surgical History: angioplasty/stent, cholecystectomy, hysterectomy Additional surgical history: bladder surgeries, lap band , right ureteral stent - Social History Smoking Status: Never smoker Smokeless Tobacco Status: No Alcohol use: none Drug use: none - Family History Brother Living Status: Still Living Hx Family Cardiac Disorders: Yes (HTN) Hx Family Endocrine Disorder: Yes (Diabetes) Father Living Status: Hx Family Cardiac Disorders: Yes (CABG x3 HTN diabetes) Hx Family Respiratory Disorders: No Hx Family Cancer: No Hx Family GI Disorders: No Hx Family Endocrine Disorder: Yes (diabetes) Hx Family Neuromuscular Disorders: No Hx Family Neurologic Disorders: No Hx Family HEENT Disorders: No Hx Family Autoimmune Disorders: No Mother Living Status: Hx Family Cardiac Disorders: Yes (htn) Hx Family Endocrine Disorder: Yes (dm) - Gastrointestinal Gastrointestinal: Present: bloating, diarrhea. Absent: abdominal pain, hematemesis, hematochezia, melena, nausea, vomiting - Constitutional Constitutional: anorexia, fatigue, no fever(s), no weight loss - EENT Nose, mouth and throat: Absent: dysphagia - Cardiovascular Cardiovascular ROS: Absent: chest pain, palpitations - Respiratory Respiratory IM: Absent: cough, dyspnea - Genitourinary Genitourinary: Absent: change in color, Urinary frequency - Neurological ROS Neurological GI: Absent: confusion, dizziness - Hematologic/Lymphatic Hematologic/Lymphatic pediatric: Present: easy bleeding - Musculoskeletal Musculoskeletal ROS GI: Absent: joint swelling - Integumentary Integumentary GI: Absent: jaundice, pruritis, rash - Endocrine Endocrine IM: Present: fatigue - Constitutional Vitals: Temp Pulse Resp BP Pulse Ox 98.7 F 78 16 111/71 93 05/22/18 08:10 05/22/18 08:10 05/22/18 08:10 05/22/18 08:10 05/22/18 08:10 Exam: Gen.: Vitals noted. No acute distress. AAOx3 HEENT: oropharynx clear, Normocephalic, atraumatic Neck: Supple. No adenopathy. Cardiac: RRR, no murmur, +S1/S2 Pulmonary: CTA bilaterally, no wheezes, rales or rhonchi, equal chest expansion Abdomen: soft, nontender, Bowel sounds noted, no guarding MSK: ROM intact, no joint swelling noted Extremities: + BLE edema Neuro: A&Ox3, moves all extremities, no focal deficits Psych: Appropriate mood and behavior Results - Labs CBC & Chem 7: 05/22/18 00:56 05/22/18 00:56 Labs: Last Result Calcium 8.4 mg/dL (8.6-10.3) L 05/22/18 00:56 Troponin I < 0.03 ng/mL (< 0.04) 18 12:55 Stool Occult Blood Positive (Negative) A 05/22/18 00:15 Entire Visit Hgb 9.5 g/dL (11.5-15.4) L 05/22/18 00:56 Hct 30.7 % (35.3-44.9) L 05/22/18 00:56 PT 35.3 Seconds (9.4-12.1) H 05/22/18 00:56 Total Bilirubin 0.6 mg/dL (0.3-1.0) 05/22/18 00:56 AST 25 Units/L (13-39) 05/22/18 00:56 ALT 11 Units/L (7-52) 05/22/18 00:56 - ABG ABG results: PT/INR, D-dimer PT 35.3 Seconds (9.4-12.1) H 05/22/18 00:56 Consult Discharge Plan - Plan Referrals: Juan Ramon Sandra MD [Partnered Physician] - Isaac De La Cruz MD [Partnered Physician] - 06/15/18 3:30 pm Nithin Hernandez [Primary Care Provider] - 06/05/18 1:55 pm Prescriptions: DiphenhydraMINE [Benadryl] 25 mg PO Q8HR PRN #20 capsule PRN Reason: Itching RX: Lactobacillus [Culturelle] 1 each PO BID #60 [email or web address] <Isaac De La Cruz - Last Filed: 06/04/18 22:23> - Time Spent With Patient Total time spent is greater than 50% in coordination of care (as documented) at patient's floor/unit and/or counseling patient: GI History of Present Illness - Data of Consult Requesting Physician: Latesha Bajwa MD - Consult Narrative History of present illness: Ms. Golden is a 68 year old female - Constitutional Vitals: Temp Pulse Resp BP Pulse Ox 97.6 F 85 14 112/62 93 06/03/18 10:41 06/03/18 10:41 06/03/18 10:41 06/03/18 10:41 06/03/18 10:41 Results - Labs CBC & Chem 7: 06/02/18 Unknown 06/02/18 Unknown Labs: Last Result Calcium 8.3 mg/dL (8.6-10.3) L 06/02/18 Unknown Troponin I < 0.03 ng/mL (< 0.04) 05/17/18 12:55 Stool Occult Blood Positive (Negative) A 05/22/18 00:15 Entire Visit Hgb 8.3 g/dL (11.5-15.4) L 06/02/18 Unknown Hct 26.4 % (35.3-44.9) L 06/02/18 Unknown PT 35.3 Seconds (9.4-12.1) H 05/22/18 00:56 Total Bilirubin 0.6 mg/dL (0.3-1.0) 05/22/18 00:56 AST 25 Units/L (13-39) 05/22/18 00:56 ALT 11 Units/L (7-52) 05/22/18 00:56 - ABG ABG results: PT/INR, D-dimer PT 35.3 Seconds (9.4-12.1) H 05/22/18 00:56 - Attending Attestation Recurrent C difficile on oral vancomycin. Add Questran and Lactobacillus. Cirrhosis and immunocompromised state I examined this patient and my medical decision-making was reviewed with the Resident Physician. I agree with the documented findings, disposition and treatment plan as described except to the extent set forth below.
[2018-05-22] MEDS ORDERED: *HR* LORazepam 2 MG/ML VIAL IVP ONE (12:24)
[2018-05-22] MEDS: Lactobacillus 1 EACH CAP.SPRINK PO SCH ×2 (12:48→21:37)
--- NOTE | 2018-05-22 15:49 | Infectious Disease Consult ---
Date of Encounter: 05/22/18 Time of Encounter: 15:33 Assessment and Plan (1) C. difficile colitis Status: Acute Assessment and plan: Mild recurrent Second episode First episode was in May Clinically patient has improved Patient has circumferential wall thickening of the cecum and ascending colon and rectum on the CT scan Recommend GI to evaluate may be a colonoscopy once clinically stable Agree with oral vancomycin 125 mg every 6 hours Duration of treatment like 14 days (2) Hematuria Status: Acute Qualifiers: Hematuria type: gross Qualified Code(s): R31.0 - Gross hematuria (3) UTI (urinary tract infection) Status: Acute Assessment and plan: Patient really is not doing any specific answer if she was symptomatic or not. I was hoping to DC antibiotics since she has C. difficile with a tubular antibiotics if she does not really need them Once I saw the urine output and the fact that she has stents and the CT findings I decided to continue antibiotics for now Causative organism Proteus mirabilis MDRO (S: zosyn/bactrim/Carbapnem) causative organims enterococcus spp: susceptibility pending Patient currently on ertapenem which should cover the Proteus mirabilis very well but ertapenem is not great for enterococcus Usually meropenem has better coverage for enterococcus if it is ampicillin sensitive Consider switching the ertapenem to meropenem Duration of treatment depends on the clinical picture and what urology decides Monitor labs and for drug toxicity Qualifiers: Urinary tract infection type: acute cystitis Hematuria presence: without hematuria Qualified Code(s): N30.00 - Acute cystitis without hematuria (4) Nausea vomiting and diarrhea Status: Acute Assessment and plan: Likely secondary to C. difficile or the combination of his C. difficile and UTI Improved (5) Allergy to multiple antibiotics Status: Acute Assessment and plan: Exact reaction not clear I did ask the patient and she said it happened a few years back and she does not remember (6) History of nephrolithiasis Status: Acute Assessment and plan: Had lithotripsy done at [facility] And stent placed here by Dr. Bee Patient still having significant hematuria Recommend urology to reevaluate Infectious Disease HPI - Data of Consult Patient: new to practice Consult date: 05/22/18 Requesting Physician: Gunjan Edwards Primary Care Provider: Nithin Hernandez - Consult Narrative Reason for consult: Recurrent multidrug resistant UTI History of present illness: Ms. Golden is a 68 year old female Patient is 68-year-old woman who presented to [facility] on 05/17/2018 with nausea and diarrhea. We are consulted on 05/22/2018 for multidrug resistant UTI. Patient is a 68-year-old woman with past medical history mentioned below including CHF, COPD, coronary disease, DVT and history of C. difficile colitis presented to the hospital for nausea and diarrhea for several days prior to admission. The area was discussed as multiple nonbloody stools and water-like in appearance and consistency. Patient also had some abdominal pain. Most of the information was taken from medical records. Patient did have nausea but no vomiting Since admission, patient has been afebrile. Patient has not been tachycardic and has been hemodynamically stable. Presenting labs revealed a WBC of 8.1 with normal differential. Rest of the chemistry and LFTs all were nonrevealing. Patient had a urinalysis on 05/17/2018 which showed moderate squamous epithelial cells and pyuria with WBC too numerous to count. Culture was obtained and it grew Proteus mirabilis that is only susceptible to Bactrim, Zosyn and carbapnem blood cultures were obtained and they were negative. Patient had an abdominal pelvic CT which showed [id number] with discontinue circumferential wall thickening of the cecum ascending colon and rectum. Differential diagnosis includes colitis but cannot exclude underlying malignancy. Unchanged 6 cm right adnexal complex cyst. Mild right uroepithelial enhancement likely due to iatrogenic stent placement but cannot exclude infectious/inflammatory process cirrhosis with unchanged moderate mesenteric edema. Patient had a stool panel done and it was positive for C. difficile PCR. Patient was started on oral vancomycin and ertapenem and we are asked to evaluate the patient's make further recommendations. Antibiotics: Rocephin 10/3 --> 10 Invanz 10--> current Vancomycin orally 10 --> current Flagyl 10/--> 10 Cipro 10/5--> 10 Currently patient laying in bed appears comfortable and nontoxic. Had one watery bowel movement today Patient has a Sanchez in and date urine looks black. On further questioning she told me she had nephrolithiasis before and 3 large stones where removed at [facility]. Patient also had a stent placed by Dr. Bee her previously. She told me her urine was yellow home until Tuesday and that is when the color changed. CC: Gunjan Edwards Past Med Surg Social Fam HX - Past Medical History Medical history: non-contributory, asthma, atrial fibrillation, CHF, COPD, coronary artery disease, CVA, kidney stones Additional medical history: recurrent UTI's Psychiatric history: anxiety, depression, panic disorder - Past Surgical History Surgical History: angioplasty/stent, cholecystectomy, hysterectomy Additional surgical history: bladder surgeries, lap band , right ureteral stent - Social History Smoking Status: Never smoker Smokeless Tobacco Status: No Alcohol use: none Drug use: none - Family History Brother Living Status: Still Living Hx Family Cardiac Disorders: Yes (HTN) Hx Family Endocrine Disorder: Yes (Diabetes) Mother Living Status: Hx Family Cardiac Disorders: Yes (htn) Hx Family Endocrine Disorder: Yes (dm) Father Living Status: Hx Family Cardiac Disorders: Yes (CABG x3 HTN diabetes) Hx Family Respiratory Disorders: No Hx Family Cancer: No Hx Family GI Disorders: No Hx Family Endocrine Disorder: Yes (diabetes) Hx Family Neuromuscular Disorders: No Hx Family Neurologic Disorders: No Hx Family HEENT Disorders: No Hx Family Autoimmune Disorders: No Infectious Disease-CN:Meds Aspirin Enteric Coated [Aspirin EC] 81 mg PO DAILY 04/27/18 [History] Metoprolol [Lopressor] 12.5 mg PO BID 04/27/18 [History] Apixaban [Eliquis] 5 mg PO BID #60 tablet 05/04/18 [Rx] Furosemide [Lasix] 20 mg PO BID 05/17/18 [History] HYDROcodone/Acet 10/325 mg [Poth 10-325 mg] 1 tab PO BID PRN 05/17/18 [History] Fluticasone Propionate Nasal [Flonase] 50 mcg NS DAILY 05/22/18 [History] 3 Allergy/AdvReac Type Severity Reaction Status Date / Time shellfish derived Allergy Severe Anaphylaxis Verified 05/17/18 12:47 levofloxacin [From Levaquin] Allergy Hives Verified 05/17/18 12:47 Penicillins Allergy Blister Verified 05/17/18 12:47 prednisone Allergy See Verified 05/17/18 12:47 Comments Sulfa (Sulfonamide Allergy Hives Verified 05/17/18 12:47 Antibiotics) egg AdvReac Severe Throat Verified 05/17/18 12:47 swelling nitrofurantoin AdvReac Severe Bruising Verified 05/17/18 12:47 [From Macrobid] on arms Review of systems: 10 point review of systems done, negative other for what is mentioned in history of present illness Exam - Constitutional Vitals: Temp Pulse Resp BP Pulse Ox 97.7 F 70 16 108/67 97 05/22/18 13:40 05/22/18 13:40 05/22/18 13:40 05/22/18 13:40 05/22/18 13:40 General appearance: no acute distress, no febrile - Head Head exam: Present: atraumatic, normocephalic - Eye Eye exam: Present: EOMI, PERRL - ENT ENT exam: Present: mucous membranes dry Additional comments: Mucous membranes are very dry and crusted but no oral lesions - Neck Neck exam: Present: full ROM. Absent: meningismus - Respiratory Respiratory exam: Present: CTAB. Absent: wheezes - Cardiovascular Cardiovascular exam: Present: RRR, +S1, +S2 - GI/Abdominal GI/Abdominal exam: Present: normal bowel sounds, soft. Absent: tenderness Additional comments: Some tenderness on deep palpation and the left lower quadrant but really not impressive. No guarding - Extremities Exam Extremities exam: Present: full ROM, normal inspection - Neurological Exam Neurological exam: Present: alert, oriented X3 Infectious Disease CN: Results - Labs CBC & Chem 7: 05/22/18 00:56 05/22/18 00:56 Serology: Serology 05/22/18 05/21/18 05/20/18 Range/Units 00:15 17:09 09:40 Ur Specimen Adequacy See below A Urine Color Red A (Yellow) Urine Clarity Cloudy A (Clear) Urine pH 6.0 (5.0-8.0) pH Units Ur Specific [place] 1.022 (1.010-1.025) Urine Protein >=300 H (Neg-Trace) mg/dL Urine Glucose (UA) Normal (Normal) mg/dL Urine Ketones Trace H (Negative) mg/dL Urine Blood Large H (Negative) Urine Nitrite Positive A (Negative) Urine Bilirubin Moderate H (Negative) Urine Urobilinogen Normal (Normal) mg/dL Ur Leukocyte Esterase Moderate H (Negative) Stool Occult Blood Positive A (Negative) Stl C. cayetanensis PCR Not detected (Not detect) Stool Rotavirus A PCR Not detected (Not detect) Stl Adenov F 40/41 PCR Not detected (Not detect) Stool Astrovirus (PCR) Not detected (Not detect) Stool Campylobacter PCR Not detected (Not detect) Stl C. diff Tox A/B PCR DETECTED A (Not detect) Stool Cryptosporidium PCR Not detected (Not detect) Stl Sh Tox Pr E STEC PCR Not detected (Not detect) Stool E coli O157 PCR Not detected (Not detect) Stl Enterotoxigenic E PCR Not detected (Not detect) Stool EPEC (PCR) Not detected (Not detect) Stool EAEC (PCR) Not detected (Not detect) Stl E. histolytica PCR Not detected (Not detect) Stool Giardia Lamblia PCR Not detected (Not detect) Stool Salmonella PCR Not detected (Not detect) Stool Sapovirus (PCR) Not detected (Not detect) Stl P. shigelloides PCR Not detected (Not detect) Stl Shigella/EIEC PCR Not detected (Not detect) St Y.enterocolitica PCR Not detected (Not detect) Stool Vibrio (PCR) Not detected (Not detect) Stl Vibrio cholerae PCR Not detected (Not detect) Stl Norovirus GI/GII PCR Not detected (Not detect) Stl GI Panel (PCR) Com See below Consult Discharge Plan - Plan Referrals: Nithin Hernandez [Primary Care Provider] - 05/24/18 10:00 am
[2018-05-22 17:18] LABS: Bilirubin,Urine Small (Negative); Blood,Urine Large (Negative); Clarity,Urine Cloudy (Clear); Glucose,Urine (UA) Normal (Normal); Ketones,Urine Negative (Negative); Leukocyte Esterase,Urine Small (Negative); Nitrite,Urine Negative (Negative); Protein,Urine 100 mg/dL (Neg-Trace); Specific Gravity,Urine 1.024 (1.010-1.025); Urobilinogen,Urine Normal (Normal)
[2018-05-22 17:21] LABS: Color,Urine Red (Yellow)
[2018-05-22 17:42] LABS: Sodium, Urine 65.4 mEq/L
[2018-05-22 18:19] LABS: Uric Acid 6.6 mg/dL (2.3-7.6)
[2018-05-22 18:44] LABS: Hepatitis A Antibody IgM Nonreactive (Nonreactive); Hepatitis B Core IgM Nonreactive (Nonreactive); Hepatitis B Surface Antigen Nonreactive (Nonreactive); Hepatitis C Virus Antibody Nonreactive (Nonreactive)
[2018-05-22 19:04] LABS: Protein/Creatinine Ratio,Urine 1.17 mg/mg (0.00-0.20)
[2018-05-22] MEDS: Cholestyramine 4 GM POWD.PACK PO SCH (21:37)
[2018-05-23] MEDS: Ipratropium/Albuterol Neb 3 ML IH PRN ×2 (04:18→23:34)
[2018-05-23 05:20] LABS: Basophils % 0.6 %; Eosinophils # 0.4 K/mcL (0.0-0.6); Eosinophils % 7.8 %; Hematocrit 27.8 % (35.3-44.9); Hemoglobin 8.7 g/dL (11.5-15.4); Immature Granulocytes % 0.2 % (0-4); Lymphocytes % 36.2 %; Mean Corpuscular HGB Conc 31.3 g/dL (31.6-35.5); Mean Corpuscular Hemoglobin 27.1 pg (28.0-33.3); Mean Corpuscular Volume 86.6 fL (83.0-100.0); Mean Platelet Volume 10.7 fL (9.4-12.4); Monocytes # 0.4 K/mcL (0.0-1.3); Monocytes % 6.7 %; Neutrophils # 2.6 K/mcL (1.6-8.9); Platelet Count 118 K/mcL (140-400); Red Blood Count 3.21 M/mcL (3.82-4.97); Red Cell Distribution Width 15.9 % (11.5-14.5); Segmented Neutrophils % 48.5 %
[2018-05-23 05:50] LABS: BUN/Creatinine Ratio 14 (6-26); Blood Urea Nitrogen 8 mg/dL (8-23); Calcium 8.2 mg/dL (8.6-10.3); Carbon Dioxide 23 mEq/L (23-29); Chloride 111 mEq/L (98-107); Glucose 146 mg/dL (70-105); Magnesium 1.6 mg/dL (1.6-2.6); Osmolality,Calculated 289 (280-300); Potassium 3.3 mEq/L (3.5-5.1); Sodium 139 mEq/L (136-145); eGFR For Non-African Americans > 60 (> 60)
[2018-05-23 05:52] LABS: Platelet Estimate Slight Decrease (Normal)
[2018-05-23] MEDS: Insulin LISPRO 300 UNITS/3 ML VIAL SQ SCH ×4 (07:57→22:51)
--- NOTE | 2018-05-23 09:05 | Gastroenterology Progress Note ---
<Sheba Ureña - Last Filed: 05/23/18 15:38> Date of Encounter: 05/23/18 Time of Encounter: 09:04 - Assessment and plan (1) Colitis Status: Acute Assessment and plan: Colitis secondary to C diff versus malignancy. Recent antibiotic use. This is her 3rd time having C diff with last episode in December 2017. 3 days prior to admission she started having 4 loose watery bowel movements a day. -Abdominal CT demonstrated moderate to severe wall thickening of cecum, ascending colon, rectum concerning for colitis versus malignancy. Cirrhosis. -She reported having colonoscopy a little over 10 years ago which was normal. She denies family history of colon cancer. Denies weight loss, bloating, melena, hematachezia. -C diff positive on stool occult -WBC WNL -abdominal exam is soft, nontender, bowel sounds present, no guarding. -She reports only had one episode of mucus he diarrhea this morning at 2AM and is not had a bowel movement since then. Denies abdominal pain, fever, chills. Plan: continue oral vancomycin, will likely need treatment for 6weeks. recommend lactobacillus indefinitely. Ordered cholestyramine. Patient will need a colonoscopy and will plan to schedule outpatient. (2) Clostridium difficile diarrhea Status: Acute Assessment and plan: C diff positive on stool occult -plan as above (3) Cirrhosis Status: Chronic Assessment and plan: Cirrhosis demonstrated by abdominal CT likely NAFLD. No history of alcohol or drug abuse. AST and ALT WNL albumin 2.9 platelets 118 -will monitor. Encourage weight loss Qualifiers: Hepatic cirrhosis type: unspecified hepatic cirrhosis Ascites presence: without ascites Qualified Code(s): K74.60 - Unspecified cirrhosis of liver (4) UTI (urinary tract infection) Status: Resolved Assessment and plan: Urinary tract infection demonstrated by urinalysis. With MDRO -management per primary team and infectious disease following Qualifiers: Urinary tract infection type: acute cystitis Hematuria presence: without hematuria Qualified Code(s): N30.00 - Acute cystitis without hematuria (5) Anemia Status: Chronic Assessment and plan: Anemia of chronic disease. Hemoglobin 8.7 minimally decreased (9.5 yesterday, stable) Patient denied melena, hematochezia stool occult positive patient is on a look was for atrial fibrillation -will monitor H&H. No obvious active bleeding. Qualifiers: Anemia type: unspecified type Qualified Code(s): D64.9 - Anemia, unspecified - Time Spent With Patient Total time spent is greater than 50% in coordination of care (as documented) at patient's floor/unit and/or counseling patient: - Subjective Interval history: Patient was seen and examined at bedside. She is alert and oriented times 3. She had one episode of mucus he diarrhea this morning at 2 AM but has not had any other episodes since then. She denies fever, chills, abdominal pain, nausea, vomiting. - Constitutional Vitals: Temp Pulse Resp BP Pulse Ox 98.2 F 79 16 131/68 95 05/23/18 07:35 05/23/18 07:35 05/23/18 07:35 05/23/18 07:35 05/23/18 07:35 Exam: Gen.: Vitals noted. No acute distress. AAOx3 HEENT: oropharynx clear, Normocephalic, atraumatic Neck: Supple. No adenopathy. Cardiac: RRR, no murmur, +S1/S2 Pulmonary: CTA bilaterally, no wheezes, rales or rhonchi, equal chest expansion Abdomen: soft, nontender, Bowel sounds noted, no guarding MSK: ROM intact, no joint swelling noted Extremities: + BLE edema Neuro: A&Ox3, moves all extremities, no focal deficits Psych: Appropriate mood and behavior Results - Labs CBC & Chem 7: 05/23/18 05:03 05/23/18 05:03 Labs: Last Result Calcium 8.2 mg/dL (8.6-10.3) L 05/23/18 05:03 Troponin I < 0.03 ng/mL (< 0.04) 05/17/18 12:55 Stool Occult Blood Positive (Negative) A 05/22/18 00:15 Entire Visit Hgb 8.7 g/dL (11.5-15.4) L 05/23/18 05:03 Hct 27.8 % (35.3-44.9) L 05/23/18 05:03 PT 35.3 Seconds (9.4-12.1) H 05/22/18 00:56 Total Bilirubin 0.6 mg/dL (0.3-1.0) 05/22/18 00:56 AST 25 Units/L (13-39) 05/22/18 00:56 ALT 11 Units/L (7-52) 05/22/18 00:56 - ABG ABG results: PT/INR, D-dimer PT 35.3 Seconds (9.4-12.1) H 05/22/18 00:56 Consult Discharge Plan - Plan Referrals: Juan Ramon Sandra MD [Partnered Physician] - Isaac De La Cruz MD [Partnered Physician] - 06/15/18 3:30 pm Nithin Hernandez [Primary Care Provider] - 06/05/18 1:55 pm Prescriptions: DiphenhydraMINE [Benadryl] 25 mg PO Q8HR PRN #20 capsule PRN Reason: Itching RX: Lactobacillus [Culturelle] 1 each PO BID #60 [email or web address] <Isaac De La Cruz - Last Filed: 06/04/18 22:18> - Time Spent With Patient Total time spent is greater than 50% in coordination of care (as documented) at patient's floor/unit and/or counseling patient: - Constitutional Vitals: Temp Pulse Resp BP Pulse Ox 97.6 F 85 14 112/62 93 06/03/18 10:41 06/03/18 10:41 06/03/18 10:41 06/03/18 10:41 06/03/18 10:41 Results - Labs CBC & Chem 7: 06/02/18 Unknown 06/02/18 Unknown Labs: Last Result Calcium 8.3 mg/dL (8.6-10.3) L 06/02/18 Unknown Troponin I < 0.03 ng/mL (< 0.04) 05/17/18 12:55 Stool Occult Blood Positive (Negative) A 05/22/18 00:15 Entire Visit Hgb 8.3 g/dL (11.5-15.4) L 06/02/18 Unknown Hct 26.4 % (35.3-44.9) L 06/02/18 Unknown PT 35.3 Seconds (9.4-12.1) H 05/22/18 00:56 Total Bilirubin 0.6 mg/dL (0.3-1.0) 05/22/18 00:56 AST 25 Units/L (13-39) 05/22/18 00:56 ALT 11 Units/L (7-52) 05/22/18 00:56 - ABG ABG results: PT/INR, D-dimer PT 35.3 Seconds (9.4-12.1) H 05/22/18 00:56 - Attending Attestation Recurrent C difficile infection. Cirrhosis immunocompromised state. Morbid obesity. On vancomycin. Can discharge home as stools firming and patient eating. May be candidate for fecal transplant. I examined this patient and my medical decision-making was reviewed with the Resident Physician. I agree with the documented findings, disposition and treatment plan as described except to the extent set forth below.
--- NOTE | 2018-05-23 09:42 | Internal Med Progress Note ---
<Tod Piper - Last Filed: 05/23/18 17:59> Hospitalist Progress Note - Encounter Date of Encounter: 05/23/18 - Exam Vitals: Temp Pulse Resp BP Pulse Ox 97.3 F L 70 16 95/60 95 05/23/18 16:46 05/23/18 16:46 05/23/18 16:46 05/23/18 16:46 05/23/18 16:46 - Assessment and Plan (1) C. difficile colitis Current Visit: Yes Status: Acute (2) DVT prophylaxis Current Visit: Yes Status: Acute (3) Acute on chronic diastolic heart failure Current Visit: Yes Status: Resolved (4) Morbid obesity Current Visit: Yes Status: Chronic (5) Coronary artery disease Current Visit: Yes Status: Chronic (6) Atrial fibrillation Current Visit: Yes Status: Chronic (7) Diabetes Current Visit: Yes Status: Chronic (8) Anemia Current Visit: Yes Status: Chronic (9) Dehydration Current Visit: Yes Status: Resolved (10) Sacral decubitus ulcer, stage II Current Visit: Yes Status: Chronic (11) Debility Current Visit: Yes Status: Acute (12) Colitis Current Visit: Yes Status: Acute (13) UTI (urinary tract infection) Current Visit: Yes Status: Acute (14) COPD (chronic obstructive pulmonary disease) Current Visit: Yes Status: Chronic (15) History of CVA (cerebrovascular accident) Current Visit: Yes Status: Acute - Time Spent with Patient Total time spent is greater than 50% in coordination of care (as documented) at patient's floor/unit and/or counseling patient: Internal Medicine: Result - Labs CBC & Chem 7: 05/23/18 05:03 05/23/18 05:03 Labs: Short CBC 05/23/18 Range/Units 05:03 WBC 5.4 (4.3-11.1) K/mcL Hgb 8.7 L (11.5-15.4) g/dL Hct 27.8 L (35.3-44.9) % Plt Count 118 L (140-400) K/mcL Neutrophils # 2.6 (1.6-8.9) K/mcL BMP 05/23/18 05:03 Sodium 139 Potassium 3.3 L Chloride 111 H Carbon Dioxide 23 BUN 8 Creatinine 0.56 L Glucose 146 H Calcium 8.2 L - ABG Interpretation ABG results: PT/INR, D-dimer PT 35.3 Seconds (9.4-12.1) H 05/22/18 00:56 Consult Discharge Plan - Plan Referrals: Nithin Hernandez [Primary Care Provider] - 05/24/18 10:00 am - Attending Attestation The history, physical exam, and medical decision making was performed by the medical student either while I was physically present and actively involved or I personally re-performed the exam and medical decision making. I have verified the accuracy of the medical student's documentation with regards to the history, physical exam findings, and medical decision making on 05/23/18. Ms Golden is currently admitted for C diff colitis and UTI. She remains moderate to high risk due to potential for worsening clinical status. Ms Golden is resting at this time. No fever or chills. Less stool output. No CP or SOB currently. Exam Alert Comfortable at this time Mucus membranes dry Heart reg and distant. Not tachy Lungs clear anteriorly and laterally Abd soft and nontender Edema present bilaterally No neuro deficit - moves all extremities I/P 1. C diff colitis 2. UTI 3. Bilateral LE edema chronic Further diagnoses and plan as above. <Jarret Matamoros R - Last Filed: 05/23/18 18:54> Hospitalist Progress Note - Encounter Date of Encounter: 05/23/18 Time of Encounter: 09:23 - Subjective Interval History: Patient was examined at bedside while lying down. She states that she had shortness of breath and chest tightness last night that required a breathing treatment. She also was feeling very anxious, and was given Benadryl last night. She reports improvement in her diarrhea. She states that she had 2 bowel movements yesterday. They were soft and mushy. The edema in her legs has not changed since admission. She is now eating a full cardiac diet, and was able to tolerate that without nausea, vomiting, abdominal pain. Currently, patient endorses orthopnea. She denies shortness of breath, cough, chest pain, abdominal pain, nausea, vomiting, melena, hemathochezia, dysuria. - Exam Vitals: Temp Pulse Resp BP Pulse Ox 98.2 F 79 16 131/68 95 05/23/18 07:35 05/23/18 07:35 05/23/18 07:35 05/23/18 07:35 05/23/18 07:35 Exam: Gen.: female lying in bed. Not in acute distress Cardiac: RRR, no murmur, +S1/S2 Pulmonary: CTA bilaterally, no wheezes, rales or rhonchi, equal chest expansion Abdomen: soft, distended, tender to palpation in lower quadrants bilaterally. BS present. Skin: Spider angiomas present on anterior upper chest Extremities: BL LE edema. Appears to be chronic and stable. Likely component of lymphedema present Neuro: A&Ox3, moves all extremities, no focal deficits Psych: Appropriate mood and behavior - Assessment and Plan (1) Hematuria Current Visit: Yes Status: Acute Assessment and Plan: -2/2 nephritic syndrome vs medication side effect vs UTI vs ureteral stent -Has hx of nephrolithiasis s/p ureteral stent -Has had dark urine for the past 4 days -Repeat UA 05/21 showed large amount of blood, moderate amount of bilirubin, and >300 protein -Patient is currently asymptomatic. She denies urinary symptoms or back pain -BUN is 8, Cr is .56 today -FOBT 05/22 was positive -On Eliquis for atrial fibrillation -Hgb has remained stable. It is 8.7 today Plan: -Nephrology recommends outpatient follow up in 3-5 weeks -24 hour urine protein pending -Urology consulted. Appreciate recommendations -Avoid nephrotoxic agents -Continue to monitor H/H and vitals (2) Colitis Current Visit: Yes Status: Acute Assessment and Plan: -2/2 infectious etiology. C diff toxin is positive -Patient has had multiple episodes of diarrhea for which she has needed hospital admission. Last admission for C. diff was December 2017. Likely a chronic issue -CT abdomen/pelvis 05/17 showed findings consistent with colitis, but could not rule out underlying malignancy -Does not meet sepsis criteria. WBC 5.4 today, is not tachycardic or tachypnic, and has remained afebrile -Blood cultures 05/17 x2 were negative for growth Plan: -Continue oral vancomycin day 4 -Continue with full cardiac diet -Continue probiotics -Continue cholestyramine -GI recommends outpatient colonoscopy (3) UTI (urinary tract infection) Current Visit: Yes Status: Acute Assessment and Plan: -Urine culture 05/17 growing Proteus and enterococcus species MDRO -Patient denying dysuria, urinary hesitancy, urinary urgency - Sanchez catheter with dark urine and sediment. -WBC 5.4 this morning. Has remained afebrile -Patient has multiple antibiotic allergies including Bactrim and Zosyn which Proteus is sensitive to. 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 Patient is currently asymptomatic. Possibility that this is colonizing organism. Plan: -Stop ertapenem day 4 -Start meropenem day 1 -ID consulted. Appreciate recommendations (4) Acute on chronic diastolic heart failure Current Visit: Yes Status: Resolved Assessment and Plan: -Chest x-ray 05/17 showed pulmonary edema suggestive of CHF exacerbation -ECHO 05/18/18 showed EF 60% with mild LV diastolic dysfunction -Patient had shortness of breath last night, requiring duoneb treatment -Lungs were CTA bilaterally on exam today. Patient is not short of breath on room air -Legs are edematous, but this appears to be a chronic issue. Likely has a lymphedematous component as well. They have been stable this admission -Acute exacerbation appears to have resolved Plan: -Continue fluid and salt restriction -TAMARA wrap legs, and elevate while sitting -Strict I/Os -Measure weight daily -Continue with cardiac diet -Duoneb and albuterol prn for wheezing (5) Cirrhosis Current Visit: Yes Status: Chronic Assessment and Plan: -Likely 2/2 VELASQUEZ -CT abdomen/pelvis 05/17 showed findings suggestive of cirrhosis -Previous CT abdomen/pelvis show findings consistent with fatty liver -Patient is aware -INR 3.1, PT 35.3, AST 25, ALT 11 -Albumin 2.9 Plan: -GI consulted. Appreciate recommendation -Consider Albumin if leg edema does not improve with TAMARA wrapping and leg elevation (6) Atrial fibrillation Current Visit: Yes Status: Chronic Assessment and Plan: -Rate controlled while inpatient -Patient has remained in NSR while inpatient -CHADSVASC score 8 -HR today is in the 70s Plan: -Continue home medication Eliquis 5 mg BID -Continue home medication metoprolol tartrate 12.5 mg BID (7) Diabetes Current Visit: Yes Status: Chronic Assessment and Plan: -Blood sugars well controlled while inpatient -Hgb A1c 5.3 on 01/29/2018 -Glucose 146 this morning Plan: -Continue low dose SSI (8) Sacral decubitus ulcer Current Visit: Yes Status: Chronic Assessment and Plan: -Patient states that she had the sacral ulcer prior to admission -Wound care is following DVT Prophylaxis: Eliquis - Time Spent with Patient Total time spent is greater than 50% in coordination of care (as documented) at patient's floor/unit and/or counseling patient: Internal Medicine: Result - Labs CBC & Chem 7: 05/23/18 05:03 05/23/18 05:03 Labs: Short CBC 05/23/18 Range/Units 05:03 WBC 5.4 (4.3-11.1) K/mcL Hgb 8.7 L (11.5-15.4) g/dL Hct 27.8 L (35.3-44.9) % Plt Count 118 L (140-400) K/mcL Neutrophils # 2.6 (1.6-8.9) K/mcL BMP 05/23/18 05:03 Sodium 139 Potassium 3.3 L Chloride 111 H Carbon Dioxide 23 BUN 8 Creatinine 0.56 L Glucose 146 H Calcium 8.2 L Urine 05/22/18 Range/Units 16:55 Urine Color Red A (Yellow) Urine Clarity Cloudy A (Clear) Urine pH 6.0 (5.0-8.0) pH Units Ur Specific [place] 1.024 (1.010-1.025) Urine Protein 100 H (Neg-Trace) mg/dL Urine Glucose (UA) Normal (Normal) mg/dL - ABG Interpretation ABG results: PT/INR, D-dimer PT 35.3 Seconds (9.4-12.1) H 05/22/18 00:56 <Tod Piper - Last Filed: 05/23/18 17:59> (5) Coronary artery disease Qualifiers: Coronary Disease-Associated Artery/Lesion type: [place] artery [place] vs. transplanted heart: [place] heart Associated angina: without angina Qualified Code(s): I25.10 - Atherosclerotic heart disease of [place] coronary artery without angina pectoris (6) Atrial fibrillation Qualifiers: Atrial fibrillation type: paroxysmal Qualified Code(s): I48.0 - Paroxysmal atrial fibrillation (7) Diabetes Qualifiers: Diabetes mellitus type: type 2 Diabetes mellitus snf insulin use: without snf use Diabetes mellitus complication status: without complication Qualified Code(s): E11.9 - Type 2 diabetes mellitus without complications (8) Anemia Qualifiers: Anemia type: unspecified type Qualified Code(s): D64.9 - Anemia, unspecified (13) UTI (urinary tract infection) Qualifiers: Urinary tract infection type: acute cystitis Hematuria presence: without hematuria Qualified Code(s): N30.00 - Acute cystitis without hematuria (14) COPD (chronic obstructive pulmonary disease) Qualifiers: COPD type: unspecified COPD Qualified Code(s): J44.9 - Chronic obstructive pulmonary disease, unspecified <Jarret Matamoros - Last Filed: 05/23/18 18:54> (3) UTI (urinary tract infection) Qualifiers: Urinary tract infection type: acute cystitis Hematuria presence: without hematuria Qualified Code(s): N30.00 - Acute cystitis without hematuria (5) Cirrhosis Qualifiers: Hepatic cirrhosis type: unspecified hepatic cirrhosis Ascites presence: without ascites Qualified Code(s): K74.60 - Unspecified cirrhosis of liver (6) Atrial fibrillation Qualifiers: Atrial fibrillation type: paroxysmal Qualified Code(s): I48.0 - Paroxysmal atrial fibrillation (7) Diabetes Qualifiers: Diabetes mellitus type: type 2 Diabetes mellitus lobsterman insulin use: without lobsterman use Diabetes mellitus complication status: without complication Qualified Code(s): E11.9 - Type 2 diabetes mellitus without complications (8) Sacral decubitus ulcer Qualifiers: Pressure injury stage: stage 2 Qualified Code(s): L89.152 - Pressure ulcer of sacral region, stage 2
[2018-05-23] MEDS: Lactobacillus 1 EACH CAP.SPRINK PO SCH ×2 (10:34→22:50)
[2018-05-23] MEDS: Ertapenem 1,000 MG in 0.9 % Sodium Chloride Mini Bag 100 ML IVPB SCH (10:34)
[2018-05-23] MEDS: Apixaban 5 MG TABLET PO SCH ×2 (10:34→22:50)
[2018-05-23] MEDS: Aspirin Enteric Coated 81 MG Tablet PO SCH (10:34)
[2018-05-23] MEDS: Vancomycin Oral Soln 125 MG/2.5 ML UDC PO SCH ×4 (10:35→22:50)
--- NOTE | 2018-05-23 11:31 | Infectious Disease Progress No ---
Date of Encounter: 05/23/18 Time of Encounter: 11:29 - Assessment and Plan (1) C. difficile colitis Current Visit: Yes Status: Acute Mild. First recurrence. First episode was in December. Clinically improved. CT scan showed wall thickening of the cecum and ascending colon. GI consulted. Appreciate recommendations. Continue Vancomycin 125mg PO QID. (day 4) Duration of treatment depends on the clinical picture, but likely a total of 14 days. Continue C. diff precautions per protocol. (2) UTI (urinary tract infection) Current Visit: Yes Status: Acute Causative organism: P. mirabilis (S: carbapenems, Bactrim, and Zosyn) and Enterococcus (susceptibilities pending). The patient reports lower abdominal pain. Not sure if this is from the UTI vs. the C. diff, but will plan to treat at this point. Discontinue Ertapenem and start Meropenem 1 gram IV Q8H since Ertapenem does not have very good Enterococcus coverage. Duration of treatment depends on the clinical picture. Monitor renal function and dose-adjust antibiotics. Recommend Urology to evaluate given the patient's history of ureteral stent. Qualifiers: Urinary tract infection type: acute cystitis Hematuria presence: without hematuria Qualified Code(s): N30.00 - Acute cystitis without hematuria (3) Hematuria Current Visit: No Status: Acute Etiology unclear: UTI vs. other. Patient has a history of ureteral stents. Recommend Urology to evaluate. Qualifiers: Hematuria type: gross Qualified Code(s): R31.0 - Gross hematuria (4) Cirrhosis Current Visit: Yes Status: Chronic GI consulted. Qualifiers: Hepatic cirrhosis type: unspecified hepatic cirrhosis Ascites presence: without ascites Qualified Code(s): K74.60 - Unspecified cirrhosis of liver (5) History of nephrolithiasis Current Visit: Yes Status: Acute Had lithotripsy done at [facility] and a stent placed here by Dr. Bee. Patient still having significant hematuria. Recommend urology to reevaluate. (6) Allergy to multiple antibiotics Current Visit: Yes Status: Acute Exact reaction unclear. - Subjective Interval history: Patient seen and examined. No acute events noted overnight. Patient sitting up in bed. Denies fevers, chills, or rigors. Denies chest pain, shortness of breath , or cough. Denies nausea, vomiting, or constipation. States had clear mucous from her rectum overnight, but only two stools yesterday. Reports lower abdominal pain. States appetite is improving. Denies oral thrush or skin lesions. Infect Dis PN-Objective Data - Labs CBC & Chem 7: 05/23/18 05:03 05/23/18 05:03 Labs: Laboratory Results - last 24 hr 05/22/18 05/22/18 05/22/18 11:50 16:55 16:55 WBC RBC Hgb Hct MCV MCH MCHC RDW Plt Count MPV Immature Gran % Seg Neutrophils % Lymphocytes % Monocytes % Eosinophils % Basophils % Neutrophils # Lymphocytes # Monocytes # Eosinophils # Basophils # Platelet Estimate Sodium Potassium Chloride Carbon Dioxide BUN Creatinine Est GFR ( Amer) Est GFR (Non-Af Amer) BUN/Creatinine Ratio Glucose POC Glucose 129 H Calculated Osmolality Uric Acid Calcium Magnesium Creatine Kinase Ur Specimen Adequacy Urine Color Red A Urine Clarity Cloudy A Urine pH 6.0 Ur Specific Bennett 1.024 Urine Protein 100 H Urine Glucose (UA) Normal Urine Ketones Negative Urine Blood Large H Urine Nitrite Negative Urine Bilirubin Small H Urine Urobilinogen Normal Ur Leukocyte Esterase Small H Ur Eosinophil Smear 0 Ur Culture Indicated? YES A Urine Creatinine 230 Protein/Creatinin Ratio 1.17 H Urine Sodium Urine Total Protein 268 H Hepatitis A IgM Ab Hep Bs Antigen Hep B Core IgM Ab Hepatitis C Ab Screen 05/22/18 05/22/18 05/22/18 16:55 17:24 17:24 WBC RBC Hgb Hct MCV MCH MCHC RDW Plt Count MPV Immature Gran % Seg Neutrophils % Lymphocytes % Monocytes % Eosinophils % Basophils % Neutrophils # Lymphocytes # Monocytes # Eosinophils # Basophils # Platelet Estimate Sodium Potassium Chloride Carbon Dioxide BUN Creatinine Est GFR ( Amer) Est GFR (Non-Af Amer) BUN/Creatinine Ratio Glucose POC Glucose Calculated Osmolality Uric Acid 6.6 Calcium Magnesium Creatine Kinase 29 L Ur Specimen Adequacy Urine Color Urine Clarity Urine pH Ur Specific Bennett Urine Protein Urine Glucose (UA) Urine Ketones Urine Blood Urine Nitrite Urine Bilirubin Urine Urobilinogen Ur Leukocyte Esterase Ur Eosinophil Smear Ur Culture Indicated? Urine Creatinine 200 Protein/Creatinin Ratio Urine Sodium 65.4 Urine Total Protein Hepatitis A IgM Ab Nonreactive Hep Bs Antigen Nonreactive Hep B Core IgM Ab Nonreactive Hepatitis C Ab Screen Nonreactive 05/22/18 05/23/18 05/23/18 19:59 05:03 05:03 WBC 5.4 RBC 3.21 L Hgb 8.7 L Hct 27.8 L MCV 86.6 MCH 27.1 L MCHC 31.3 L RDW 15.9 H Plt Count 118 L MPV 10.7 Immature Gran % 0.2 Seg Neutrophils % 48.5 Lymphocytes % 36.2 Monocytes % 6.7 Eosinophils % 7.8 Basophils % 0.6 Neutrophils # 2.6 Lymphocytes # 2.0 Monocytes # 0.4 Eosinophils # 0.4 Basophils # 0.0 Platelet Estimate Slight Decrease L Sodium 139 Potassium 3.3 L Chloride 111 H Carbon Dioxide 23 BUN 8 Creatinine 0.56 L Est GFR ( Amer) > 60 Est GFR (Non-Af Amer) > 60 BUN/Creatinine Ratio 14 Glucose 146 H POC Glucose 150 H Calculated Osmolality 289 Uric Acid Calcium 8.2 L Magnesium 1.6 Creatine Kinase Ur Specimen Adequacy Urine Color Urine Clarity Urine pH Ur Specific Bennett Urine Protein Urine Glucose (UA) Urine Ketones Urine Blood Urine Nitrite Urine Bilirubin Urine Urobilinogen Ur Leukocyte Esterase Ur Eosinophil Smear Ur Culture Indicated? Urine Creatinine Protein/Creatinin Ratio Urine Sodium Urine Total Protein Hepatitis A IgM Ab Hep Bs Antigen Hep B Core IgM Ab Hepatitis C Ab Screen Cultures: Serology 05/22/18 05/22/18 05/22/18 Range/Units 17:24 16:55 16:55 Ur Specimen Adequacy Urine Color Red A (Yellow) Urine Clarity Cloudy A (Clear) Urine pH 6.0 (5.0-8.0) pH Units Ur Specific Bennett 1.024 (1.010-1.025) Urine Protein 100 H (Neg-Trace) mg/dL Urine Glucose (UA) Normal (Normal) mg/dL Urine Ketones Negative (Negative) mg/dL Urine Blood Large H (Negative) Urine Nitrite Negative (Negative) Urine Bilirubin Small H (Negative) Urine Urobilinogen Normal (Normal) mg/dL Ur Leukocyte Esterase Small H (Negative) Ur Eosinophil Smear 0 (None Seen) % Ur Culture Indicated? YES A (NO) Urine Creatinine 200 mg/dL Protein/Creatinin Ratio (0.00-0.20) mg/mg Urine Sodium 65.4 mEq/L Urine Total Protein (1-14) mg/dL Stool Occult Blood (Negative) Stl C. cayetanensis PCR (Not detect) Stool Rotavirus A PCR (Not detect) Stl Adenov F 40/41 PCR (Not detect) Stool Astrovirus (PCR) (Not detect) Stool Campylobacter PCR (Not detect) Stl C. diff Tox A/B PCR (Not detect) Stool Cryptosporidium PCR (Not detect) Stl Sh Tox Pr E STEC PCR (Not detect) Stool E coli O157 PCR (Not detect) Stl Enterotoxigenic E PCR (Not detect) Stool EPEC (PCR) (Not detect) Stool EAEC (PCR) (Not detect) Stl E. histolytica PCR (Not detect) Stool Giardia Lamblia PCR (Not detect) Stool Salmonella PCR (Not detect) Stool Sapovirus (PCR) (Not detect) Stl P. shigelloides PCR (Not detect) Stl Shigella/EIEC PCR (Not detect) St Y.enterocolitica PCR (Not detect) Stool Vibrio (PCR) (Not detect) Stl Vibrio cholerae PCR (Not detect) Stl Norovirus GI/GII PCR (Not detect) Stl GI Panel (PCR) Com Hepatitis A IgM Ab Nonreactive (Nonreactive) Hep Bs Antigen Nonreactive (Nonreactive) Hep B Core IgM Ab Nonreactive (Nonreactive) Hepatitis C Ab Screen Nonreactive (Nonreactive) 05/22/18 05/22/18 05/21/18 Range/Units 16:55 00:15 17:09 Ur Specimen Adequacy See below A Urine Color Red A (Yellow) Urine Clarity Cloudy A (Clear) Urine pH 6.0 (5.0-8.0) pH Units Ur Specific Bennett 1.022 (1.010-1.025) Urine Protein >=300 H (Neg-Trace) mg/dL Urine Glucose (UA) Normal (Normal) mg/dL Urine Ketones Trace H (Negative) mg/dL Urine Blood Large H (Negative) Urine Nitrite Positive A (Negative) Urine Bilirubin Moderate H (Negative) Urine Urobilinogen Normal (Normal) mg/dL Ur Leukocyte Esterase Moderate H (Negative) Ur Eosinophil Smear (None Seen) % Ur Culture Indicated? (NO) Urine Creatinine 230 mg/dL Protein/Creatinin Ratio 1.17 H (0.00-0.20) mg/mg Urine Sodium mEq/L Urine Total Protein 268 H (1-14) mg/dL Stool Occult Blood Positive A (Negative) Stl C. cayetanensis PCR (Not detect) Stool Rotavirus A PCR (Not detect) Stl Adenov F 40/41 PCR (Not detect) Stool Astrovirus (PCR) (Not detect) Stool Campylobacter PCR (Not detect) Stl C. diff Tox A/B PCR (Not detect) Stool Cryptosporidium PCR (Not detect) Stl Sh Tox Pr E STEC PCR (Not detect) Stool E coli O157 PCR (Not detect) Stl Enterotoxigenic E PCR (Not detect) Stool EPEC (PCR) (Not detect) Stool EAEC (PCR) (Not detect) Stl E. histolytica PCR (Not detect) Stool Giardia Lamblia PCR (Not detect) Stool Salmonella PCR (Not detect) Stool Sapovirus (PCR) (Not detect) Stl P. shigelloides PCR (Not detect) Stl Shigella/EIEC PCR (Not detect) St Y.enterocolitica PCR (Not detect) Stool Vibrio (PCR) (Not detect) Stl Vibrio cholerae PCR (Not detect) Stl Norovirus GI/GII PCR (Not detect) Stl GI Panel (PCR) Com Hepatitis A IgM Ab (Nonreactive) Hep Bs Antigen (Nonreactive) Hep B Core IgM Ab (Nonreactive) Hepatitis C Ab Screen (Nonreactive) 05/20/18 Range/Units 09:40 Ur Specimen Adequacy Urine Color (Yellow) Urine Clarity (Clear) Urine pH (5.0-8.0) pH Units Ur Specific Bennett (1.010-1.025) Urine Protein (Neg-Trace) mg/dL Urine Glucose (UA) (Normal) mg/dL Urine Ketones (Negative) mg/dL Urine Blood (Negative) Urine Nitrite (Negative) Urine Bilirubin (Negative) Urine Urobilinogen (Normal) mg/dL Ur Leukocyte Esterase (Negative) Ur Eosinophil Smear (None Seen) % Ur Culture Indicated? (NO) Urine Creatinine mg/dL Protein/Creatinin Ratio (0.00-0.20) mg/mg Urine Sodium mEq/L Urine Total Protein (1-14) mg/dL Stool Occult Blood (Negative) Stl C. cayetanensis PCR Not detected (Not detect) Stool Rotavirus A PCR Not detected (Not detect) Stl Adenov F 40/41 PCR Not detected (Not detect) Stool Astrovirus (PCR) Not detected (Not detect) Stool Campylobacter PCR Not detected (Not detect) Stl C. diff Tox A/B PCR DETECTED A (Not detect) Stool Cryptosporidium PCR Not detected (Not detect) Stl Sh Tox Pr E STEC PCR Not detected (Not detect) Stool E coli O157 PCR Not detected (Not detect) Stl Enterotoxigenic E PCR Not detected (Not detect) Stool EPEC (PCR) Not detected (Not detect) Stool EAEC (PCR) Not detected (Not detect) Stl E. histolytica PCR Not detected (Not detect) Stool Giardia Lamblia PCR Not detected (Not detect) Stool Salmonella PCR Not detected (Not detect) Stool Sapovirus (PCR) Not detected (Not detect) Stl P. shigelloides PCR Not detected (Not detect) Stl Shigella/EIEC PCR Not detected (Not detect) St Y.enterocolitica PCR Not detected (Not detect) Stool Vibrio (PCR) Not detected (Not detect) Stl Vibrio cholerae PCR Not detected (Not detect) Stl Norovirus GI/GII PCR Not detected (Not detect) Stl GI Panel (PCR) Com See below Hepatitis A IgM Ab (Nonreactive) Hep Bs Antigen (Nonreactive) Hep B Core IgM Ab (Nonreactive) Hepatitis C Ab Screen (Nonreactive) Exam - Constitutional Vitals: Temp Pulse Resp BP Pulse Ox 98.2 F 79 16 131/68 95 05/23/18 07:35 05/23/18 07:35 05/23/18 07:35 05/23/18 07:35 05/23/18 07:35 General appearance: cooperative, morbidly obese, no acute distress - Head Head exam: Present: atraumatic, normal inspection, normocephalic - Eye Eye exam: Present: EOMI, normal appearance, PERRL Pupils: Present: normal accommodation - ENT ENT exam: Present: mucous membranes moist - Neck Neck exam: Present: normal inspection - Respiratory Respiratory exam: Present: CTAB. Absent: rales, respiratory distress, rhonchi, wheezes - Cardiovascular Cardiovascular exam: Present: RRR, +S1, +S2 - GI/Abdominal GI/Abdominal exam: Present: distended (obese), normal bowel sounds, soft, tenderness (genrealized) Additional comments: Sanchez catheter noted to be draining cloudy, bloody urine. - Extremities Exam Extremities exam: Present: normal inspection. Absent: joint swelling, pedal edema, tenderness - Neurological Exam Neurological exam: Present: alert, oriented X3, no focal deficits - Psychiatric Psychiatric exam: Present: normal affect, normal mood - Skin Skin exam: Present: dry, intact, normal color, warm Consult Discharge Plan - Plan Referrals: Nithin Hernandez [Primary Care Provider] - 05/24/18 10:00 am - Attending Attestation I examined this patient and my medical decision-making was reviewed with the Resident Physician. I agree with the documented findings, disposition and treatment plan as described except to the extent set forth below.
--- NOTE | 2018-05-23 12:08 | Nephrology Consult Note ---
Date of Encounter: 05/23/18 Time of Encounter: 11:58 Assessment and Plan (1) C. difficile colitis Current Visit: Yes Status: Acute Per primary. (2) Nausea vomiting and diarrhea Current Visit: Yes Status: Acute Supportive care. (3) Proteinuria Current Visit: Yes Status: Acute UA + for protein. 24 hour urine ordered, nurse Majo clements. Qualifiers: Qualified Code(s): R80.9 - Proteinuria, unspecified (4) Cirrhosis Current Visit: Yes Status: Chronic GI consult. Qualifiers: Hepatic cirrhosis type: unspecified hepatic cirrhosis Ascites presence: without ascites Qualified Code(s): K74.60 - Unspecified cirrhosis of liver (5) Hematuria Current Visit: No Status: Acute Likely to kidney stones/stent. Recommend urology to evaluate. Qualifiers: Hematuria type: gross Qualified Code(s): R31.0 - Gross hematuria History of Present Illness - Reason for Consult Consult date: 05/23/18 proteinuria - Chief Complaint nausea/diarrhea - History of Present Illness Ms. Golden is a 68 year old female who presented to ED on 05/17/18 for nausea and diarrhea. Pt reports 5 loose stools a day, without relief from Immodium. PMH : COD, CAD, DVT (on Eliquis) kidney stones. She was admitted to [facility] and has been inpatient. She is + for Cdiff, and + for Occult blood in stool. 2 UA'S have been collected and both were + for blood, bilirubin, and protein. Pt does have a history of kidney/ureter stones, so this could be a contributing factor to this. Urine function remains stable. Scr is 0.56 and GFR is greater than 60. Pt does not see a animal control licensing worker outpatient, but has been seen in the hospital by Dr. Turcios for nonoliguric protein in urine. She was septic at the time from a UTI. She does have an extensive history of UTI's and kidney stones. She denies a FH of HD or CKD. Home medications reviewed and patient is on 20 mg PO lasix BID, but no other nephrotoxins medications. She denies chronic or frequent use of NSAIDS. Pt does describe that when she was at home, she had poor PO intake due to not feeling well. She states she had not been feeling well for "quite sometime" more than a week. She lives at home with son and granddaughter,they help her. She does have a chronic sacral decub that home health is caring for. Denies any tobacco, etoh, or illicit drug use. Will order REGINALD/ANCA C3 and C4 to rule out other processes. Past Med Surg Social Fam HX - Past Medical History Medical history: non-contributory, asthma, atrial fibrillation, CHF, COPD, coronary artery disease, CVA, kidney stones Additional medical history: recurrent UTI's Psychiatric history: anxiety, depression, panic disorder - Past Surgical History Surgical History: angioplasty/stent, cholecystectomy, hysterectomy Additional surgical history: bladder surgeries, lap band , right ureteral stent - Social History Smoking Status: Never smoker Smokeless Tobacco Status: No Alcohol use: none Drug use: none - Family History Brother Living Status: Still Living Hx Family Cardiac Disorders: Yes (HTN) Hx Family Endocrine Disorder: Yes (Diabetes) Mother Living Status: Hx Family Cardiac Disorders: Yes (htn) Hx Family Endocrine Disorder: Yes (dm) Father Living Status: Hx Family Cardiac Disorders: Yes (CABG x3 HTN diabetes) Hx Family Respiratory Disorders: No Hx Family Cancer: No Hx Family GI Disorders: No Hx Family Endocrine Disorder: Yes (diabetes) Hx Family Neuromuscular Disorders: No Hx Family Neurologic Disorders: No Hx Family HEENT Disorders: No Hx Family Autoimmune Disorders: No Medications and Allergies Aspirin Enteric Coated [Aspirin EC] 81 mg PO DAILY 04/27/18 [History] Metoprolol [Lopressor] 12.5 mg PO BID 04/27/18 [History] Apixaban [Eliquis] 5 mg PO BID #60 tablet 05/04/18 [Rx] Furosemide [Lasix] 20 mg PO BID 05/17/18 [History] HYDROcodone/Acet 10/325 mg [[place] 10-325 mg] 1 tab PO BID PRN 05/17/18 [History] Fluticasone Propionate Nasal [Flonase] 50 mcg NS DAILY 05/22/18 [History] 3 Allergy/AdvReac Type Severity Reaction Status Date / Time shellfish derived Allergy Severe Anaphylaxis Verified 05/17/18 12:47 levofloxacin [From Levaquin] Allergy Hives Verified 05/17/18 12:47 Penicillins Allergy Blister Verified 05/17/18 12:47 prednisone Allergy See Verified 05/17/18 12:47 Comments Sulfa (Sulfonamide Allergy Hives Verified 05/17/18 12:47 Antibiotics) egg AdvReac Severe Throat Verified 05/17/18 12:47 swelling nitrofurantoin AdvReac Severe Bruising Verified 05/17/18 12:47 [From Macrobid] on arms Review of Systems All Systems review (narrative): The remainder of the symptoms are negative. Constitutional: no chills, no fatigue, no fever(s) Cardiovascular: no chest pain, no dyspnea, no edema Respiratory: no cough, no dyspnea Gastrointestinal: change in bowel habits, no diarrhea, no nausea, no vomiting Genitourinary Female: no hematuria, no urinary frequency, no urinary incontinence, no urinary urgency Exam - Vital Signs Vital signs: Initial Vital Signs Temp Pulse Resp BP Pulse Ox 99.3 F 70 16 102/54 98 05/17/18 12:39 05/17/18 12:39 05/17/18 12:39 05/17/18 12:39 05/17/18 12:39 Vital Signs - Last 8 Hours Temp Pulse Resp BP Pulse Ox 05/23/18 07:35 98.2 F 79 16 131/68 95 05/23/18 04:18 16 95 Intake and Output 05/22/18 05/23/18 05/23/18 23:59 07:59 15:59 Intake Total 0 / 0 Output Total 300 / 300 200 / 200 Balance -300 / -300 -200 / -200 Intake: Oral 0 / 0 Output: Urine 0 / 0 Catheter 300 / 300 200 / 200 Other: Weight 107 kg Blood Glucose* 98 Patient Weight 05/23/18 23:59 Weight 107 kg - General Appearance General appearance: well-developed, well-nourished EENT: ATNC, mucous membranes dry, hearing intact, vision intact Respiratory: clear Cardiology: edema (+2 pitting edema noted. ), normal S1, normal S2 Gastrointestinal: normoactive bowel sounds, no tenderness, no guarding Integumentary: no rash, warm and dry Neurologic: alert and oriented x3 Psychiatric: mood/affect appropriate, cooperative Results - Lab Results 05/23/18 05:03 05/23/18 05:03 Most recent lab results Calcium 8.2 mg/dL (8.6-10.3) L 05/23/18 05:03 Magnesium 1.6 mg/dL (1.6-2.6) 05/23/18 05:03 Urine Creatinine 230 mg/dL 05/22/18 16:55 Urine Sodium 65.4 mEq/L 05/22/18 16:55 Urine Total Protein 268 mg/dL (1-14) H 05/22/18 16:55 Consult Discharge Plan - Plan Referrals: Nithin Hernandez [Primary Care Provider] - 05/24/18 10:00 am
[2018-05-23] MEDS: Meropenem 1,000 MG in Water for inj. (sterile) 20 ML 10 ML IVP SCH (17:53)
[2018-05-23] MEDS: Cholestyramine 4 GM POWD.PACK PO SCH (22:50)
[2018-05-24] MEDS: Meropenem 1,000 MG in Water for inj. (sterile) 20 ML 10 ML IVP SCH ×4 (01:30→23:18)
[2018-05-24] MEDS: *HR* HYDROcodone/Acet 10/325 mg TABLET PO PRN (03:43)
[2018-05-24] MEDS ORDERED: Potassium Chloride 40 MEQ, Lidocaine 1% 2 ML in D5% in Water 500 ML IVPB ONE (07:09)
[2018-05-24 07:49] LABS: Basophils % 0.5 %; Eosinophils # 0.5 K/mcL (0.0-0.6); Eosinophils % 9.2 %; Hematocrit 28.6 % (35.3-44.9); Hemoglobin 8.9 g/dL (11.5-15.4); Immature Granulocytes % 0.3 % (0-4); Lymphocytes # 1.8 K/mcL (0.6-4.6); Lymphocytes % 31.4 %; Mean Corpuscular HGB Conc 31.1 g/dL (31.6-35.5); Mean Corpuscular Hemoglobin 27.2 pg (28.0-33.3); Mean Corpuscular Volume 87.5 fL (83.0-100.0); Mean Platelet Volume 11.4 fL (9.4-12.4); Monocytes # 0.4 K/mcL (0.0-1.3); Monocytes % 7.7 %; Neutrophils # 2.9 K/mcL (1.6-8.9); Platelet Count 135 K/mcL (140-400); Red Blood Count 3.27 M/mcL (3.82-4.97); Red Cell Distribution Width 15.6 % (11.5-14.5); Segmented Neutrophils % 50.9 %
[2018-05-24 08:05] LABS: BUN/Creatinine Ratio 18 (6-26); Blood Urea Nitrogen 11 mg/dL (8-23); Calcium 8.4 mg/dL (8.6-10.3); Carbon Dioxide 25 mEq/L (23-29); Chloride 111 mEq/L (98-107); Glucose 126 mg/dL (70-105); Osmolality,Calculated 291 (280-300); Potassium 3.5 mEq/L (3.5-5.1); Sodium 140 mEq/L (136-145); eGFR For Non-African Americans > 60 (> 60)
[2018-05-24] MEDS: Insulin LISPRO 300 UNITS/3 ML VIAL SQ SCH ×4 (08:21→20:31)
--- NOTE | 2018-05-24 08:58 | Urology - Consult Note ---
<Noemi Shah N - Last Filed: 05/24/18 08:54> Date of Encounter: 05/24/18 Time of Encounter: 08:54 - Assessment and Plan (1) UTI (urinary tract infection) due to urinary indwelling catheter Current Visit: No Status: Acute Assessment and plan: Patient is a 68-year-old female who presents the history of urinary tract infection with culture positive Proteus, enterococcus and yeast. Infectious disease is following and ordered susceptible IV antibiotics. Patient is 2 months status post stone extraction and stent removal from [facility]. CT of abdomen and pelvis was reviewed and consistent with those postoperative findings. There is no surgical indication at this time. Urology will continue to follow. Qualifiers: Indwelling urinary catheter type: indwelling urethral catheter Encounter type: initial encounter Qualified Code(s): T83.511A - Infection and inflammatory reaction due to indwelling urethral catheter, initial encounter; N39.0 - Urinary tract infection, site not specified; N39.0 - Urinary tract infection, site not specified Urology CN:HPI Consult date: 05/24/18 Reason for consult Urology: Other (UTI) History of present illness: Patient is a 68-year-old female who presents with a history of urinary tract infection following stone extraction and stent removal at [facility] on . Urine culture is positive for yeast, Proteus, an enterococcus. Patient presented to the emergency department with complaints of nausea, diarrhea and severe dehydration. Patient has multiple pre-existing comorbidities including congestive heart failure, COPD, coronary artery disease , DVT, and C. difficile colitis. Patient reports feeling very weak on admission , but she is improved since then. Patient reports she underwent ureteroscopic stone extraction that was converted to a PCNL and ureteral stent removal at [facility] on 03/15/2018. Patient states there were no complications with that surgery. Patient denies any known family history of renal stones. Currently, patient denies flank pain, fever, chills. Patient has indwelling Sanchez catheter, and urine appears much fruit tester than what was reported on admission. Patient has been placed on intravenous vancomycin and Meropenem. Past Med Surg Social Fam HX - Past Medical History Medical history: non-contributory, asthma, atrial fibrillation, CHF, COPD, coronary artery disease, CVA, kidney stones Additional medical history: recurrent UTI's Psychiatric history: anxiety, depression, panic disorder - Past Surgical History Surgical History: angioplasty/stent, cholecystectomy, hysterectomy Additional surgical history: bladder surgeries, lap band , right ureteral stent - Social History Smoking Status: Never smoker Smokeless Tobacco Status: No Alcohol use: none Drug use: none - Family History Brother Living Status: Still Living Hx Family Cardiac Disorders: Yes (HTN) Hx Family Endocrine Disorder: Yes (Diabetes) Mother Living Status: Hx Family Cardiac Disorders: Yes (htn) Hx Family Endocrine Disorder: Yes (dm) Father Living Status: Hx Family Cardiac Disorders: Yes (CABG x3 HTN diabetes) Hx Family Respiratory Disorders: No Hx Family Cancer: No Hx Family GI Disorders: No Hx Family Endocrine Disorder: Yes (diabetes) Hx Family Neuromuscular Disorders: No Hx Family Neurologic Disorders: No Hx Family HEENT Disorders: No Hx Family Autoimmune Disorders: No Medications and Allergies Aspirin Enteric Coated [Aspirin EC] 81 mg PO DAILY 04/27/18 [History] Metoprolol [Lopressor] 12.5 mg PO BID 04/27/18 [History] Apixaban [Eliquis] 5 mg PO BID #60 tablet 05/04/18 [Rx] Furosemide [Lasix] 20 mg PO BID 05/17/18 [History] HYDROcodone/Acet 10/325 mg [[place] 10-325 mg] 1 tab PO BID PRN 05/17/18 [History] Fluticasone Propionate Nasal [Flonase] 50 mcg NS DAILY 05/22/18 [History] 3 Allergy/AdvReac Type Severity Reaction Status Date / Time shellfish derived Allergy Severe Anaphylaxis Verified 05/17/18 12:47 levofloxacin [From Levaquin] Allergy Hives Verified 05/17/18 12:47 Penicillins Allergy Blister Verified 05/17/18 12:47 prednisone Allergy See Verified 05/17/18 12:47 Comments Sulfa (Sulfonamide Allergy Hives Verified 05/17/18 12:47 Antibiotics) egg AdvReac Severe Throat Verified 05/17/18 12:47 swelling nitrofurantoin AdvReac Severe Bruising Verified 05/17/18 12:47 [From Macrobid] on arms Review of Systems - Constitutional fatigue, no chills, no fever(s) - EENT Nose, mouth and throat: no dizziness, no headache(s) - Cardiovascular no chest pain, no diaphoresis, no dyspnea - Respiratory no cough, no dyspnea - Gastrointestinal no abdominal pain, no nausea, no vomiting - Genitourinary Genitourinary: urinary hesitancy, no dysuria, no flank pain, no urinary frequency, no urinary urgency - Musculoskeletal no back pain, no muscle weakness - Integumentary no erythema, no rash, no swelling - Neurological no confusion, no syncope - Psychiatric no anxiety, no confusion - Hematologic/Lymphatic easy bleeding, easy bruising - Allergic/Immunologic no throat swelling, no wheezing Exam Initial Vital Signs Temp Pulse Resp BP Pulse Ox 99.3 F 70 16 102/54 98 05/17/18 12:39 05/17/18 12:39 05/17/18 12:39 05/17/18 12:39 05/17/18 12:39 - General physical appearance Present: well developed, no distress, no pain - Eyes Present: PERRL, normal ocular movement - ENT Present: normal nares, no hearing loss, no congestion - Neck Present: no masses, trachea midline - Respiratory Present: normal respiratory effort - Cardiovascular Cardiovascular exam IM: RRR - Abdomen Abdomen: Present: soft, non tender. Absent: distended - Genitourinary Present: other (urine is tea colored ) - Integumentary Present: no rash, no abnormal pigmentation - Neurologic Present: normal coordination - Musculoskeletal Present: other (normal posture ) Urology Results - Labs 05/24/18 07:09 05/24/18 07:09 Abnormal lab results RBC 3.27 M/mcL (3.82-4.97) L 05/24/18 07:09 Hgb 8.9 g/dL (11.5-15.4) L 05/24/18 07:09 Hct 28.6 % (35.3-44.9) L 05/24/18 07:09 MCH 27.2 pg (28.0-33.3) L 05/24/18 07:09 MCHC 31.1 g/dL (31.6-35.5) L 05/24/18 07:09 RDW 15.6 % (11.5-14.5) H 05/24/18 07:09 Plt Count 135 K/mcL (140-400) L 05/24/18 07:09 Reactive Lymphocytes Present (Not Present) A 05/22/18 00:56 Platelet Estimate Slight Decrease (Normal) L 05/23/18 05:03 Large Platelets Present (Not Present) A 05/22/18 00:56 PT 35.3 Seconds (9.4-12.1) H 05/22/18 00:56 APTT 40.7 Seconds (26.0-36.0) H 05/17/18 12:55 Chloride 111 mEq/L (98-107) H 05/24/18 07:09 Glucose 126 mg/dL (70-105) H 05/24/18 07:09 POC Glucose 149 mg/dL (70-99) H 05/23/18 20:52 Calcium 8.4 mg/dL (8.6-10.3) L 05/24/18 07:09 Direct Bilirubin 0.3 mg/dL (0.0-0.2) H 05/17/18 13:52 Alkaline Phosphatase 117 Units/L (34-104) H 05/22/18 00:56 Creatine Kinase 29 Units/L (30-223) L 05/22/18 17:24 B-Natriuretic Peptide 181 pg/mL (Less than 100) H 05/17/18 13:11 Albumin 2.9 g/dL (3.5-5.7) L 05/22/18 00:56 Globulin 4.0 g/dL (2.4-3.5) H 05/22/18 00:56 Albumin/Globulin Ratio 0.7 (1.1-2.2) L 05/22/18 00:56 Procalcitonin 0.10 ng/mL (<=0.07) H 05/18/18 14:13 Urine Color Red (Yellow) A 05/22/18 16:55 Urine Clarity Cloudy (Clear) A 05/22/18 16:55 Urine Protein 100 mg/dL (Neg-Trace) H 05/22/18 16:55 Urine Blood Large (Negative) H 05/22/18 16:55 Urine Bilirubin Small (Negative) H 05/22/18 16:55 Ur Leukocyte Esterase Small (Negative) H 05/22/18 16:55 Urine Microscopic RBC 5-15 per hpf (0-3) H 05/17/18 14:30 Urine Microscopic WBC TNTC per hpf (0-3) H 05/17/18 14:30 Ur Squamous Epith Cells Moderate per lpf (None-Few) H 05/17/18 14:30 Urine Bacteria Many per hpf (None-Few) H 05/17/18 14:30 Ur Culture Indicated? YES (NO) A 05/22/18 16:55 Protein/Creatinin Ratio 1.17 mg/mg (0.00-0.20) H 05/22/18 16:55 Urine Total Protein 268 mg/dL (1-14) H 05/22/18 16:55 Stool Occult Blood Positive (Negative) A 05/22/18 00:15 Stl C. diff Tox A/B PCR DETECTED (Not detect) A 05/20/18 09:40 Diabetes panel 05/24/18 Range/Units 07:09 Sodium 140 (136-145) mEq/L Potassium 3.5 (3.5-5.1) mEq/L Chloride 111 H (98-107) mEq/L Carbon Dioxide 25 (23-29) mEq/L BUN 11 (8-23) mg/dL Creatinine 0.60 (0.60-1.20) mg/dL Glucose 126 H (70-105) mg/dL Calcium 8.4 L (8.6-10.3) mg/dL Calcium panel 05/24/18 Range/Units 07:09 Calcium 8.4 L (8.6-10.3) mg/dL Pituitary panel 05/24/18 Range/Units 07:09 Sodium 140 (136-145) mEq/L Potassium 3.5 (3.5-5.1) mEq/L Chloride 111 H (98-107) mEq/L Carbon Dioxide 25 (23-29) mEq/L BUN 11 (8-23) mg/dL Creatinine 0.60 (0.60-1.20) mg/dL Glucose 126 H (70-105) mg/dL Calcium 8.4 L (8.6-10.3) mg/dL Adrenal panel 05/24/18 Range/Units 07:09 Sodium 140 (136-145) mEq/L Potassium 3.5 (3.5-5.1) mEq/L Chloride 111 H (98-107) mEq/L Carbon Dioxide 25 (23-29) mEq/L BUN 11 (8-23) mg/dL Creatinine 0.60 (0.60-1.20) mg/dL Glucose 126 H (70-105) mg/dL Calcium 8.4 L (8.6-10.3) mg/dL All other labs normal. - Imaging CT scan - abdomen: report reviewed, image reviewed CT scan - pelvis: report reviewed, image reviewed Consult Discharge Plan - Plan Referrals: Isaac De La Cruz MD [Partnered Physician] - 06/15/18 3:30 pm Nithin Hernandez [Primary Care Provider] - 05/31/18 1:45 pm <Juan Bee - Last Filed: 05/24/18 18:56> Date of Encounter: 05/24/18 - Assessment and Plan (1) Hematuria Current Visit: Yes Status: Acute Assessment and plan: Agree with position social work assistant note. I reviewed the CT scan and do not feel there is any surgical issue at hand. Renal pelvis changes are consistent with history and not overly concerning. Patient is likely colonized with bacteria which will be difficult to clear. Appreciate infectious disease recommendations. Urine is transparent brownish in color and does not require CBI. Exam Initial Vital Signs Temp Pulse Resp BP Pulse Ox 99.3 F 70 16 102/54 98 05/17/18 12:39 05/17/18 12:39 05/17/18 12:39 05/17/18 12:39 05/17/18 12:39 Urology Results - Labs 05/24/18 07:09 05/24/18 07:09 Abnormal lab results RBC 3.27 M/mcL (3.82-4.97) L 05/24/18 07:09 Hgb 8.9 g/dL (11.5-15.4) L 05/24/18 07:09 Hct 28.6 % (35.3-44.9) L 05/24/18 07:09 MCH 27.2 pg (28.0-33.3) L 05/24/18 07:09 MCHC 31.1 g/dL (31.6-35.5) L 05/24/18 07:09 RDW 15.6 % (11.5-14.5) H 05/24/18 07:09 Plt Count 135 K/mcL (140-400) L 05/24/18 07:09 Reactive Lymphocytes Present (Not Present) A 05/22/18 00:56 Platelet Estimate Slight Decrease (Normal) L 05/23/18 05:03 Large Platelets Present (Not Present) A 05/22/18 00:56 PT 35.3 Seconds (9.4-12.1) H 05/22/18 00:56 APTT 40.7 Seconds (26.0-36.0) H 05/17/18 12:55 Chloride 111 mEq/L (98-107) H 05/24/18 07:09 Glucose 126 mg/dL (70-105) H 05/24/18 07:09 POC Glucose 149 mg/dL (70-99) H 05/23/18 20:52 Calcium 8.4 mg/dL (8.6-10.3) L 05/24/18 07:09 Direct Bilirubin 0.3 mg/dL (0.0-0.2) H 05/17/18 13:52 Alkaline Phosphatase 117 Units/L (34-104) H 05/22/18 00:56 Creatine Kinase 21 Units/L (30-223) L 05/24/18 07:09 B-Natriuretic Peptide 181 pg/mL (Less than 100) H 05/17/18 13:11 Albumin 2.9 g/dL (3.5-5.7) L 05/22/18 00:56 Globulin 4.0 g/dL (2.4-3.5) H 05/22/18 00:56 Albumin/Globulin Ratio 0.7 (1.1-2.2) L 05/22/18 00:56 Procalcitonin 0.10 ng/mL (<=0.07) H 05/18/18 14:13 Urine Color Red (Yellow) A 05/22/18 16:55 Urine Clarity Cloudy (Clear) A 05/22/18 16:55 Urine Protein 100 mg/dL (Neg-Trace) H 05/22/18 16:55 Urine Blood Large (Negative) H 05/22/18 16:55 Urine Bilirubin Small (Negative) H 05/22/18 16:55 Ur Leukocyte Esterase Small (Negative) H 05/22/18 16:55 Urine Microscopic RBC 5-15 per hpf (0-3) H 05/17/18 14:30 Urine Microscopic WBC TNTC per hpf (0-3) H 05/17/18 14:30 Ur Squamous Epith Cells Moderate per lpf (None-Few) H 05/17/18 14:30 Urine Bacteria Many per hpf (None-Few) H 05/17/18 14:30 Ur Culture Indicated? YES (NO) A 05/22/18 16:55 Urine Total Volume 0.53 Liters (0.60-1.60) L 05/24/18 14:15 Ur Total Protein 24 Hr 1028 mg/day (50-80) H 05/24/18 14:15 Protein/Creatinin Ratio 1.29 mg/mg (0.00-0.20) H 05/24/18 14:15 Urine Total Protein 194 mg/dL (1-14) H 05/24/18 14:15 Stool Occult Blood Positive (Negative) A 05/22/18 00:15 Stl C. diff Tox A/B PCR DETECTED (Not detect) A 05/20/18 09:40 Diabetes panel 05/24/18 Range/Units 07:09 Sodium 140 (136-145) mEq/L Potassium 3.5 (3.5-5.1) mEq/L Chloride 111 H (98-107) mEq/L Carbon Dioxide 25 (23-29) mEq/L BUN 11 (8-23) mg/dL Creatinine 0.60 (0.60-1.20) mg/dL Glucose 126 H (70-105) mg/dL Calcium 8.4 L (8.6-10.3) mg/dL Calcium panel 05/24/18 Range/Units 07:09 Calcium 8.4 L (8.6-10.3) mg/dL Pituitary panel 05/24/18 Range/Units 07:09 Sodium 140 (136-145) mEq/L Potassium 3.5 (3.5-5.1) mEq/L Chloride 111 H (98-107) mEq/L Carbon Dioxide 25 (23-29) mEq/L BUN 11 (8-23) mg/dL Creatinine 0.60 (0.60-1.20) mg/dL Glucose 126 H (70-105) mg/dL Calcium 8.4 L (8.6-10.3) mg/dL Adrenal panel 05/24/18 Range/Units 07:09 Sodium 140 (136-145) mEq/L Potassium 3.5 (3.5-5.1) mEq/L Chloride 111 H (98-107) mEq/L Carbon Dioxide 25 (23-29) mEq/L BUN 11 (8-23) mg/dL Creatinine 0.60 (0.60-1.20) mg/dL Glucose 126 H (70-105) mg/dL Calcium 8.4 L (8.6-10.3) mg/dL All other labs normal.
[2018-05-24] MEDS: Lactobacillus 1 EACH CAP.SPRINK PO SCH ×2 (10:37→20:37)
[2018-05-24] MEDS: Aspirin Enteric Coated 81 MG Tablet PO SCH (10:37)
[2018-05-24] MEDS: Apixaban 5 MG TABLET PO SCH ×2 (10:38→20:36)
[2018-05-24] MEDS: Vancomycin Oral Soln 125 MG/2.5 ML UDC PO SCH ×4 (10:38→20:37)
[2018-05-24] MEDS: Albuterol 2.5 MG/3 ML NEBULIZER IH PRN ×2 (11:22→20:19)
[2018-05-24 15:36] LABS: Total Volume 24 Hour,Urine 0.53 Liters (0.60-1.60)
[2018-05-24 16:06] LABS: Protein/Creatinine Ratio,Urine 1.29 mg/mg (0.00-0.20)
--- NOTE | 2018-05-24 17:16 | Infectious Disease Progress No ---
Date of Encounter: 05/24/18 Time of Encounter: 10:50 - Assessment and Plan (1) C. difficile colitis Current Visit: Yes Status: Acute Mild. First recurrence. First episode was in December. Clinically improved. CT scan showed wall thickening of the cecum and ascending colon. GI consulted. Appreciate recommendations. Continue Vancomycin 125mg PO QID. (day 5) Duration of treatment depends on the clinical picture, but likely a total of 14 days. Continue C. diff precautions per protocol. (2) UTI (urinary tract infection) Current Visit: Yes Status: Acute Causative organism: P. mirabilis (S: carbapenems, Bactrim, and Zosyn) and VRE. The patient reports lower abdominal pain. Not sure if this is from the UTI vs. the C. diff, but will plan to treat at this point. Urology consulted. Continue Meropenem 1 gram IV Q8H. We cannot use Zosyn since the patient has an allergy to PCN. Start Daptomycin 4mg/kg IV daily. Check baseline CK level. Duration of treatment depends on the clinical picture. Monitor renal function and dose-adjust antibiotics. Qualifiers: Urinary tract infection type: acute cystitis Hematuria presence: without hematuria Qualified Code(s): N30.00 - Acute cystitis without hematuria (3) Hematuria Current Visit: No Status: Acute Etiology unclear: UTI vs. other. Patient has a history of ureteral stents. Urology consulted. Qualifiers: Hematuria type: gross Qualified Code(s): R31.0 - Gross hematuria (4) Cirrhosis Current Visit: Yes Status: Chronic GI consulted. Qualifiers: Hepatic cirrhosis type: unspecified hepatic cirrhosis Ascites presence: without ascites Qualified Code(s): K74.60 - Unspecified cirrhosis of liver (5) History of nephrolithiasis Current Visit: Yes Status: Acute Had lithotripsy done at [facility] and a stent placed here by Dr. Bee. Patient still having significant hematuria. Urology consulted. (6) Allergy to multiple antibiotics Current Visit: Yes Status: Acute Exact reaction unclear. - Subjective Interval history: Patient seen and examined. No acute events noted overnight. Patient sitting up in bed. Denies fevers, chills, or rigors. Denies chest pain or cough, but does report some shortness of breath and wheezing. Denies nausea, vomiting, or constipation. States had clear mucous from her rectum overnight again. Reports lower abdominal pain has resolved. States appetite is improving. Denies oral thrush or skin lesions. Infect Dis PN-Objective Data - Labs CBC & Chem 7: 05/24/18 07:09 05/24/18 07:09 Labs: Laboratory Results - last 24 hr 05/23/18 05/23/18 05/23/18 07:40 11:39 20:52 WBC RBC Hgb Hct MCV MCH MCHC RDW Plt Count MPV Immature Gran % Seg Neutrophils % Lymphocytes % Monocytes % Eosinophils % Basophils % Neutrophils # Lymphocytes # Monocytes # Eosinophils # Basophils # Sodium Potassium Chloride Carbon Dioxide BUN Creatinine Est GFR ( Amer) Est GFR (Non-Af Amer) BUN/Creatinine Ratio Glucose POC Glucose 98 152 H 149 H Calculated Osmolality Calcium Urine Total Volume Urine Creatinine Ur Creatinine 24 Hour Ur Total Protein 24 Hr Protein/Creatinin Ratio Urine Sodium Ur Sodium 24 Hour Urine Total Protein 05/24/18 05/24/18 05/24/18 07:09 07:09 14:15 WBC 5.7 RBC 3.27 L Hgb 8.9 L Hct 28.6 L MCV 87.5 MCH 27.2 L MCHC 31.1 L RDW 15.6 H Plt Count 135 L MPV 11.4 Immature Gran % 0.3 Seg Neutrophils % 50.9 Lymphocytes % 31.4 Monocytes % 7.7 Eosinophils % 9.2 Basophils % 0.5 Neutrophils # 2.9 Lymphocytes # 1.8 Monocytes # 0.4 Eosinophils # 0.5 Basophils # 0.0 Sodium 140 Potassium 3.5 Chloride 111 H Carbon Dioxide 25 BUN 11 Creatinine 0.60 Est GFR ( Amer) > 60 Est GFR (Non-Af Amer) > 60 BUN/Creatinine Ratio 18 Glucose 126 H POC Glucose Calculated Osmolality 291 Calcium 8.4 L Urine Total Volume 0.53 L Urine Creatinine 150 Ur Creatinine 24 Hour 795 Ur Total Protein 24 Hr 1028 H Protein/Creatinin Ratio 1.29 H Urine Sodium 110.0 Ur Sodium 24 Hour 58 Urine Total Protein 194 H Cultures: Cultures 05/22/18 16:55 Urine Culture - Preliminary Urine,Clean Catch Yeast Species Serology 05/24/18 05/22/18 05/22/18 Range/Units 14:15 17:24 16:55 Ur Specimen Adequacy Urine Color (Yellow) Urine Clarity (Clear) Urine pH (5.0-8.0) pH Units Ur Specific [place] (1.010-1.025) Urine Protein (Neg-Trace) mg/dL Urine Glucose (UA) (Normal) mg/dL Urine Ketones (Negative) mg/dL Urine Blood (Negative) Urine Nitrite (Negative) Urine Bilirubin (Negative) Urine Urobilinogen (Normal) mg/dL Ur Leukocyte Esterase (Negative) Ur Eosinophil Smear (None Seen) % Ur Culture Indicated? (NO) Urine Total Volume 0.53 L (0.60-1.60) Liters Urine Creatinine 150 200 mg/dL Ur Creatinine 24 Hour 795 (600-1800) mg/day Ur Total Protein 24 Hr 1028 H (50-80) mg/day Protein/Creatinin Ratio 1.29 H (0.00-0.20) mg/mg Urine Sodium 110.0 65.4 mEq/L Ur Sodium 24 Hour 58 (40-220) mEq/day Urine Total Protein 194 H (1-14) mg/dL Stool Occult Blood (Negative) Hepatitis A IgM Ab Nonreactive (Nonreactive) Hep Bs Antigen Nonreactive (Nonreactive) Hep B Core IgM Ab Nonreactive (Nonreactive) Hepatitis C Ab Screen Nonreactive (Nonreactive) 05/22/18 05/22/18 05/22/18 Range/Units 16:55 16:55 00:15 Ur Specimen Adequacy Urine Color Red A (Yellow) Urine Clarity Cloudy A (Clear) Urine pH 6.0 (5.0-8.0) pH Units Ur Specific [place] 1.024 (1.010-1.025) Urine Protein 100 H (Neg-Trace) mg/dL Urine Glucose (UA) Normal (Normal) mg/dL Urine Ketones Negative (Negative) mg/dL Urine Blood Large H (Negative) Urine Nitrite Negative (Negative) Urine Bilirubin Small H (Negative) Urine Urobilinogen Normal (Normal) mg/dL Ur Leukocyte Esterase Small H (Negative) Ur Eosinophil Smear 0 (None Seen) % Ur Culture Indicated? YES A (NO) Urine Total Volume (0.60-1.60) Liters Urine Creatinine 230 mg/dL Ur Creatinine 24 Hour (600-1800) mg/day Ur Total Protein 24 Hr (50-80) mg/day Protein/Creatinin Ratio 1.17 H (0.00-0.20) mg/mg Urine Sodium mEq/L Ur Sodium 24 Hour (40-220) mEq/day Urine Total Protein 268 H (1-14) mg/dL Stool Occult Blood Positive A (Negative) Hepatitis A IgM Ab (Nonreactive) Hep Bs Antigen (Nonreactive) Hep B Core IgM Ab (Nonreactive) Hepatitis C Ab Screen (Nonreactive) 05/21/18 Range/Units 17:09 Ur Specimen Adequacy See below A Urine Color Red A (Yellow) Urine Clarity Cloudy A (Clear) Urine pH 6.0 (5.0-8.0) pH Units Ur Specific [place] 1.022 (1.010-1.025) Urine Protein >=300 H (Neg-Trace) mg/dL Urine Glucose (UA) Normal (Normal) mg/dL Urine Ketones Trace H (Negative) mg/dL Urine Blood Large H (Negative) Urine Nitrite Positive A (Negative) Urine Bilirubin Moderate H (Negative) Urine Urobilinogen Normal (Normal) mg/dL Ur Leukocyte Esterase Moderate H (Negative) Ur Eosinophil Smear (None Seen) % Ur Culture Indicated? (NO) Urine Total Volume (0.60-1.60) Liters Urine Creatinine mg/dL Ur Creatinine 24 Hour (600-1800) mg/day Ur Total Protein 24 Hr (50-80) mg/day Protein/Creatinin Ratio (0.00-0.20) mg/mg Urine Sodium mEq/L Ur Sodium 24 Hour (40-220) mEq/day Urine Total Protein (1-14) mg/dL Stool Occult Blood (Negative) Hepatitis A IgM Ab (Nonreactive) Hep Bs Antigen (Nonreactive) Hep B Core IgM Ab (Nonreactive) Hepatitis C Ab Screen (Nonreactive) - Impressions Impressions Chest X-Ray 05/24/18 12:34 IMPRESSION: New small right pleural effusion. Persistent bilateral interstitial opacities which may reflect mild edema. D/ / Stella Umana MD / Stella Umana MD Interpreting Provider: Stella Umana MD Retroperitoneum Ultrasound 05/24/18 13:00 IMPRESSION: No gross hydronephrosis. D/ / Caleb Yung MD / Caleb Yung MD Interpreting Provider: Caleb Yung MD Exam - Constitutional Vitals: Temp Pulse Resp BP Pulse Ox 98.0 F 78 16 127/77 93 05/24/18 11:02 05/24/18 11:02 05/24/18 11:22 05/24/18 11:02 05/24/18 11:22 General appearance: cooperative, no acute distress, obese - Head Head exam: Present: atraumatic, normal inspection, normocephalic - Eye Eye exam: Present: EOMI, normal appearance, PERRL Pupils: Present: normal accommodation - ENT ENT exam: Present: mucous membranes moist - Neck Neck exam: Present: normal inspection - Respiratory Respiratory exam: Present: wheezes (faint expiratory wheezes noted to the left upper lobe.). Absent: rales, respiratory distress, rhonchi - Cardiovascular Cardiovascular exam: Present: RRR, +S1, +S2 - GI/Abdominal GI/Abdominal exam: Present: distended (obese), normal bowel sounds, soft. Absent: tenderness Additional comments: Sanchez catheter noted to be draining bloody urine. - Extremities Exam Extremities exam: Present: normal inspection. Absent: joint swelling, pedal edema, tenderness Additional comments: Compression dressings noted to the BLE. - Neurological Exam Neurological exam: Present: alert, oriented X3, no focal deficits - Psychiatric Psychiatric exam: Present: normal affect, normal mood - Skin Skin exam: Present: dry, intact, normal color, warm Consult Discharge Plan - Plan Referrals: Isaac De La Cruz MD [Partnered Physician] - 06/15/18 3:30 pm Nithin Hernandez [Primary Care Provider] - 05/31/18 1:45 pm - Attending Attestation I examined this patient and my medical decision-making was reviewed with the Resident Physician. I agree with the documented findings, disposition and treatment plan as described except to the extent set forth below.
[2018-05-24 17:36] LABS: Creatine Kinase 21 Units/L (30-223)
--- NOTE | 2018-05-24 18:16 | Internal Med Progress Note ---
Hospitalist Progress Note - Encounter Date of Encounter: 05/24/18 Time of Encounter: 12:30 - Subjective Interval History: Ms Golden is currently admitted for UTI and C diff. She remains moderate to high risk due to potential for worsening clinical status. Ms Golden is having mucus stool not diarrhea. No fever or chills. Feels like she is wheezing. To have ultrasound of kidneys today. No pain. - Exam Vitals: Temp Pulse Resp BP Pulse Ox 98.0 F 78 16 127/77 93 05/24/18 11:02 05/24/18 11:02 05/24/18 11:22 05/24/18 11:02 05/24/18 11:22 Exam: General: Alert and oriented. Comfortable at this time. Skin: Normal color, no rash, no lesions. H: Normocephalic. EENT: EOMI. Mucus membranes moist. No lesion. Lips very cracked. Cardiovascular: Normal S1 & S2, no rubs, murmurs or gallops. No JVD. Lungs: Slight end exp wheeze. No rhonchi or rales. Abdomen: Soft, non-tender, no rigidity. Normal bowel sounds. Extremities: Edema present bilaterally. Neurological: Normal cognition. Pulses: Carotid and radial pulses normal +2. Rest of the physical exam is non contributory - Assessment and Plan (1) C. difficile colitis Current Visit: Yes Status: Acute Assessment and Plan: Currently on PO Vancomycin. Will continue per recommendations. (2) DVT prophylaxis Current Visit: Yes Status: Acute (3) Acute on chronic diastolic heart failure Current Visit: Yes Status: Resolved Assessment and Plan: -Overall seems to be stable but having some wheezing today. Will repeat CXR today. Continue medications as ordered. (4) Morbid obesity Current Visit: Yes Status: Chronic Assessment and Plan: Chronic issue (5) Coronary artery disease Current Visit: Yes Status: Chronic Assessment and Plan: Chronic issue (6) Atrial fibrillation Current Visit: Yes Status: Chronic Assessment and Plan: Rate controlled since admission -Currently in NSR -HR 87 -CHADSVASC score 8 Plan: -Continue current medications. (7) Diabetes Current Visit: Yes Status: Chronic Assessment and Plan: -Blood sugars well controlled while inpatient -Hgb A1c 5.3 on 01/29/2018 Plan: -Continue low dose SSI (8) Anemia Current Visit: Yes Status: Chronic Assessment and Plan: Remains at baseline at this time. (9) Dehydration Current Visit: Yes Status: Resolved (10) Sacral decubitus ulcer, stage II Current Visit: Yes Status: Chronic Assessment and Plan: Consult made to Wound Care. Present on admission (11) Debility Current Visit: Yes Status: Acute (12) UTI (urinary tract infection) Current Visit: Yes Status: Acute Assessment and Plan: Culture positive for VRE and yeast. Appreciate ID input. (13) COPD (chronic obstructive pulmonary disease) Current Visit: Yes Status: Chronic Assessment and Plan: Not in acute exacerbation. Continue home medications Continue inhalers this morning as above (14) History of CVA (cerebrovascular accident) Current Visit: Yes Status: Acute Assessment and Plan: Currently on Eliquis and aspirin. - Time Spent with Patient Total time spent is greater than 50% in coordination of care (as documented) at patient's floor/unit and/or counseling patient: Internal Medicine: Result - Labs CBC & Chem 7: 05/24/18 07:09 05/24/18 07:09 Labs: Short CBC 05/24/18 Range/Units 07:09 WBC 5.7 (4.3-11.1) K/mcL Hgb 8.9 L (11.5-15.4) g/dL Hct 28.6 L (35.3-44.9) % Plt Count 135 L (140-400) K/mcL Neutrophils # 2.9 (1.6-8.9) K/mcL BMP 05/24/18 07:09 Sodium 140 Potassium 3.5 Chloride 111 H Carbon Dioxide 25 BUN 11 Creatinine 0.60 Glucose 126 H Calcium 8.4 L - ABG Interpretation ABG results: PT/INR, D-dimer PT 35.3 Seconds (9.4-12.1) H 05/22/18 00:56 - Impressions Impressions Chest X-Ray 05/24/18 12:34 IMPRESSION: New small right pleural effusion. Persistent bilateral interstitial opacities which may reflect mild edema. D/ / Stella Umana MD / Stella Umana MD Interpreting Provider: Stella Umana MD Retroperitoneum Ultrasound 05/24/18 13:00 IMPRESSION: No gross hydronephrosis. D/ / Caleb Yung MD / Caleb Yung MD Interpreting Provider: Caleb Yung MD Consult Discharge Plan - Plan Referrals: Isaac De La Cruz MD [Partnered Physician] - 06/15/18 3:30 pm Nithin Hernandez [Primary Care Provider] - 05/31/18 1:45 pm (5) Coronary artery disease Qualifiers: Coronary Disease-Associated Artery/Lesion type: [place] artery [place] vs. transplanted heart: [place] heart Associated angina: without angina Qualified Code(s): I25.10 - Atherosclerotic heart disease of [place] coronary artery without angina pectoris (6) Atrial fibrillation Qualifiers: Atrial fibrillation type: paroxysmal Qualified Code(s): I48.0 - Paroxysmal atrial fibrillation (7) Diabetes Qualifiers: Diabetes mellitus type: type 2 Diabetes mellitus exterminator insulin use: without assisted use Diabetes mellitus complication status: without complication Qualified Code(s): E11.9 - Type 2 diabetes mellitus without complications (8) Anemia Qualifiers: Anemia type: unspecified type Qualified Code(s): D64.9 - Anemia, unspecified (12) UTI (urinary tract infection) Qualifiers: Urinary tract infection type: acute cystitis Hematuria presence: without hematuria Qualified Code(s): N30.00 - Acute cystitis without hematuria (13) COPD (chronic obstructive pulmonary disease) Qualifiers: COPD type: unspecified COPD Qualified Code(s): J44.9 - Chronic obstructive pulmonary disease, unspecified
[2018-05-24] MEDS: DAPTOmycin 450 MG in 0.9 % Sodium Chloride 100 ML IVPB SCH (19:30)
[2018-05-24] MEDS: Cholestyramine 4 GM POWD.PACK PO SCH (20:29)
[2018-05-25] MEDS: Ipratropium/Albuterol Neb 3 ML IH PRN (01:30)
[2018-05-25] MEDS: Meropenem 1,000 MG in Water for inj. (sterile) 20 ML 10 ML IVP SCH ×2 (09:55→17:23)
[2018-05-25] MEDS: Aspirin Enteric Coated 81 MG Tablet PO SCH (09:56)
[2018-05-25] MEDS: Apixaban 5 MG TABLET PO SCH ×2 (09:56→22:07)
[2018-05-25] MEDS: Vancomycin Oral Soln 125 MG/2.5 ML UDC PO SCH ×4 (09:57→22:08)
[2018-05-25] MEDS: Insulin LISPRO 300 UNITS/3 ML VIAL SQ SCH ×3 (09:57→17:39)
[2018-05-25] MEDS: Lactobacillus 1 EACH CAP.SPRINK PO SCH ×2 (09:57→22:07)
[2018-05-25] MEDS ORDERED: Petrolatum, White OINT.PACK TP PRN (10:29)
--- NOTE | 2018-05-25 13:49 | Infectious Disease Progress No ---
Date of Encounter: 05/25/18 Time of Encounter: 13:44 - Assessment and Plan (1) C. difficile colitis Current Visit: Yes Status: Acute Mild. First recurrence. First episode was in December. Clinically improved. CT scan showed wall thickening of the cecum and ascending colon. GI consulted. Appreciate recommendations. Continue Vancomycin 125mg PO QID. (day 6) Duration of treatment depends on the clinical picture, but likely a total of 14 days. Continue C. diff precautions per protocol. (2) UTI (urinary tract infection) Current Visit: Yes Status: Acute Causative organism: P. mirabilis (S: carbapenems, Bactrim, and Zosyn) and VRE. The patient reports lower abdominal pain. Not sure if this is from the UTI vs. the C. diff, but will plan to treat at this point. Urology consulted. Continue Meropenem 1 gram IV Q8H. We cannot use Zosyn since the patient has an allergy to PCN. Start Continue Daptomycinmg IV daily. (day 2) Baseline CK level 21. Duration of treatment depends on the clinical picture, but likely a total of 14 days. Continue Daptomycin through 06/06/18 and continue Meropenem through . Monitor renal function and dose-adjust antibiotics. No further recommendations from the ID team. We will sign off. Please re- consult PRN. Qualifiers: Urinary tract infection type: acute cystitis Hematuria presence: without hematuria Qualified Code(s): N30.00 - Acute cystitis without hematuria (3) Hematuria Current Visit: No Status: Acute Etiology unclear: UTI vs. other. Patient has a history of ureteral stents. CT abdomen and pelvis not conclusive for hematuria etiology. The patient is on Eliquis at this time. May need to consider holding. Urology consulted. Await further recommendations regarding etiology for persistent/recurrent hematuria. Qualifiers: Hematuria type: gross Qualified Code(s): R31.0 - Gross hematuria (4) Cirrhosis Current Visit: Yes Status: Chronic Likely NAFLD. GI consulted. Qualifiers: Hepatic cirrhosis type: unspecified hepatic cirrhosis Ascites presence: without ascites Qualified Code(s): K74.60 - Unspecified cirrhosis of liver (5) History of nephrolithiasis Current Visit: Yes Status: Acute Had lithotripsy done at [facility] and a stent placed here by Dr. Bee. Patient still having significant hematuria. Urology consulted. (6) Allergy to multiple antibiotics Current Visit: Yes Status: Acute Exact reaction unclear. - Subjective Interval history: Patient seen and examined. No acute events noted overnight. Patient sitting up in bed. Denies fevers, chills, or rigors. Denies chest pain or cough, but does report some shortness of breath and wheezing. Reports feeling tired. Denies nausea, vomiting, or constipation. States had clear mucous from her rectum overnight again. Reports lower abdominal pain has resolved. States appetite is improving. Denies oral thrush or skin lesions. Infect Dis PN-Objective Data - Labs CBC & Chem 7: 05/25/18 14:01 05/26/18 01:09 Labs: Laboratory Results - last 24 hr 05/23/18 05/24/18 05/24/18 11:39 07:09 07:43 Sodium 140 Potassium 3.5 Chloride 111 H Carbon Dioxide 25 BUN 11 Creatinine 0.60 Est GFR ( Amer) > 60 Est GFR (Non-Af Amer) > 60 BUN/Creatinine Ratio 18 Glucose 126 H POC Glucose 152 H 119 H Calculated Osmolality 291 Calcium 8.4 L Creatine Kinase 21 L Urine Total Volume Urine Creatinine Ur Creatinine 24 Hour Ur Total Protein 24 Hr Protein/Creatinin Ratio Urine Sodium Ur Sodium 24 Hour Urine Total Protein 05/24/18 05/24/18 05/24/18 10:55 14:15 16:40 Sodium Potassium Chloride Carbon Dioxide BUN Creatinine Est GFR ( Amer) Est GFR (Non-Af Amer) BUN/Creatinine Ratio Glucose POC Glucose 126 H 144 H Calculated Osmolality Calcium Creatine Kinase Urine Total Volume 0.53 L Urine Creatinine 150 Ur Creatinine 24 Hour 795 Ur Total Protein 24 Hr 1028 H Protein/Creatinin Ratio 1.29 H Urine Sodium 110.0 Ur Sodium 24 Hour 58 Urine Total Protein 194 H 05/24/18 05/25/18 05/25/18 20:08 06:58 11:02 Sodium Potassium Chloride Carbon Dioxide BUN Creatinine Est GFR ( Amer) Est GFR (Non-Af Amer) BUN/Creatinine Ratio Glucose POC Glucose 141 H 125 H 161 H Calculated Osmolality Calcium Creatine Kinase Urine Total Volume Urine Creatinine Ur Creatinine 24 Hour Ur Total Protein 24 Hr Protein/Creatinin Ratio Urine Sodium Ur Sodium 24 Hour Urine Total Protein Cultures: Cultures 05/22/18 16:55 Urine Culture - Final Urine,Clean Catch Raissa albicans Serology 05/24/18 05/22/18 05/22/18 Range/Units 14:15 17:24 16:55 Ur Specimen Adequacy Urine Color (Yellow) Urine Clarity (Clear) Urine pH (5.0-8.0) pH Units Ur Specific [place] (1.010-1.025) Urine Protein (Neg-Trace) mg/dL Urine Glucose (UA) (Normal) mg/dL Urine Ketones (Negative) mg/dL Urine Blood (Negative) Urine Nitrite (Negative) Urine Bilirubin (Negative) Urine Urobilinogen (Normal) mg/dL Ur Leukocyte Esterase (Negative) Ur Eosinophil Smear (None Seen) % Ur Culture Indicated? (NO) Urine Total Volume 0.53 L (0.60-1.60) Liters Urine Creatinine 150 200 mg/dL Ur Creatinine 24 Hour 795 (600-1800) mg/day Ur Total Protein 24 Hr 1028 H (50-80) mg/day Protein/Creatinin Ratio 1.29 H (0.00-0.20) mg/mg Urine Sodium 110.0 65.4 mEq/L Ur Sodium 24 Hour 58 (40-220) mEq/day Urine Total Protein 194 H (1-14) mg/dL Stool Occult Blood (Negative) Hepatitis A IgM Ab Nonreactive (Nonreactive) Hep Bs Antigen Nonreactive (Nonreactive) Hep B Core IgM Ab Nonreactive (Nonreactive) Hepatitis C Ab Screen Nonreactive (Nonreactive) 05/22/18 05/22/18 05/22/18 Range/Units 16:55 16:55 00:15 Ur Specimen Adequacy Urine Color Red A (Yellow) Urine Clarity Cloudy A (Clear) Urine pH 6.0 (5.0-8.0) pH Units Ur Specific [place] 1.024 (1.010-1.025) Urine Protein 100 H (Neg-Trace) mg/dL Urine Glucose (UA) Normal (Normal) mg/dL Urine Ketones Negative (Negative) mg/dL Urine Blood Large H (Negative) Urine Nitrite Negative (Negative) Urine Bilirubin Small H (Negative) Urine Urobilinogen Normal (Normal) mg/dL Ur Leukocyte Esterase Small H (Negative) Ur Eosinophil Smear 0 (None Seen) % Ur Culture Indicated? YES A (NO) Urine Total Volume (0.60-1.60) Liters Urine Creatinine 230 mg/dL Ur Creatinine 24 Hour (600-1800) mg/day Ur Total Protein 24 Hr (50-80) mg/day Protein/Creatinin Ratio 1.17 H (0.00-0.20) mg/mg Urine Sodium mEq/L Ur Sodium 24 Hour (40-220) mEq/day Urine Total Protein 268 H (1-14) mg/dL Stool Occult Blood Positive A (Negative) Hepatitis A IgM Ab (Nonreactive) Hep Bs Antigen (Nonreactive) Hep B Core IgM Ab (Nonreactive) Hepatitis C Ab Screen (Nonreactive) 05/21/18 Range/Units 17:09 Ur Specimen Adequacy See below A Urine Color Red A (Yellow) Urine Clarity Cloudy A (Clear) Urine pH 6.0 (5.0-8.0) pH Units Ur Specific [place] 1.022 (1.010-1.025) Urine Protein >=300 H (Neg-Trace) mg/dL Urine Glucose (UA) Normal (Normal) mg/dL Urine Ketones Trace H (Negative) mg/dL Urine Blood Large H (Negative) Urine Nitrite Positive A (Negative) Urine Bilirubin Moderate H (Negative) Urine Urobilinogen Normal (Normal) mg/dL Ur Leukocyte Esterase Moderate H (Negative) Ur Eosinophil Smear (None Seen) % Ur Culture Indicated? (NO) Urine Total Volume (0.60-1.60) Liters Urine Creatinine mg/dL Ur Creatinine 24 Hour (600-1800) mg/day Ur Total Protein 24 Hr (50-80) mg/day Protein/Creatinin Ratio (0.00-0.20) mg/mg Urine Sodium mEq/L Ur Sodium 24 Hour (40-220) mEq/day Urine Total Protein (1-14) mg/dL Stool Occult Blood (Negative) Hepatitis A IgM Ab (Nonreactive) Hep Bs Antigen (Nonreactive) Hep B Core IgM Ab (Nonreactive) Hepatitis C Ab Screen (Nonreactive) - Impressions Impressions Chest X-Ray 05/24/18 12:34 IMPRESSION: New small right pleural effusion. Persistent bilateral interstitial opacities which may reflect mild edema. D/ / Stella Umana MD / Stella Umana MD Interpreting Provider: Stella Umana MD Retroperitoneum Ultrasound 05/24/18 13:00 IMPRESSION: No gross hydronephrosis. D/ / Caleb Yung MD / Caleb Yung MD Interpreting Provider: Caleb Yung MD Exam - Constitutional Vitals: Temp Pulse Resp BP Pulse Ox 98.1 F 75 24 107/64 96 05/25/18 13:18 05/25/18 13:18 05/25/18 13:18 05/25/18 13:18 05/25/18 13:18 General appearance: cooperative, morbidly obese, no acute distress - Head Head exam: Present: atraumatic, normal inspection, normocephalic - Eye Eye exam: Present: EOMI, normal appearance, PERRL Pupils: Present: normal accommodation - ENT ENT exam: Present: mucous membranes dry - Neck Neck exam: Present: normal inspection - Respiratory Respiratory exam: Present: CTAB. Absent: rales, respiratory distress, rhonchi, wheezes - Cardiovascular Cardiovascular exam: Present: RRR, +S1, +S2 - GI/Abdominal GI/Abdominal exam: Present: distended (obese), normal bowel sounds, soft. Absent: tenderness Additional comments: Sanchez catheter noted to be draining grossly bloody urine. - Extremities Exam Extremities exam: Present: normal inspection. Absent: joint swelling, pedal edema, tenderness Additional comments: Compression dressings noted to the BLE. - Neurological Exam Neurological exam: Present: alert, oriented X3, no focal deficits - Psychiatric Psychiatric exam: Present: normal affect, normal mood - Skin Skin exam: Present: dry, intact, normal color, warm Consult Discharge Plan - Plan Referrals: Isaac De La Cruz MD [Partnered Physician] - 06/15/18 3:30 pm Nithin Hernandez [Primary Care Provider] - 05/31/18 1:45 pm - Attending Attestation I examined this patient and my medical decision-making was reviewed with the Resident Physician. I agree with the documented findings, disposition and treatment plan as described except to the extent set forth below.
--- NOTE | 2018-05-25 13:56 | Internal Med Progress Note ---
<Harpreet Wagoner - Last Filed: 05/25/18 17:36> Hospitalist Progress Note - Encounter Date of Encounter: 05/25/18 Time of Encounter: 14:00 - Subjective Interval History: Patient was seen and examined at bedside this morning. She states she feels about the same as yesterday. She states she still is having loose bowel movements are relatively had one yesterday. Denies any symptoms of nausea, vomiting, fevers, chills, chest pain. She does admit to some wheezing intermittently last couple days which is partially relieved with breathing treatments. Continues to deny any urinary symptoms. - Exam Vitals: Temp Pulse Resp BP Pulse Ox 98.1 F 75 24 107/64 96 05/25/18 13:18 05/25/18 13:18 05/25/18 13:18 05/25/18 13:18 05/25/18 13:18 Exam: Gen.: Vitals noted. No acute distress. AAOx3. Resting comfortably in bed HEENT: PERRL/EOMI, oropharynx clear, Normocephalic, atraumatic, lips very cracked Cardiac: RRR, no murmur, +S1/S2 Pulmonary: minimal wheezes more prominent in bases, no rales or rhonchi, equal chest expansion Abdomen: soft, nontender, BS noted, no guarding, no rebound. Mildly distended, improved MSK: ROM intact, no joint swelling noted Extremities: Legs wrapped in Gerard bandage, swelling improved., nontender calf, no cyanosis or clubbing Neuro: A&Ox3, moves all extremities, no focal deficits Psych: Appropriate mood and behavior - Assessment and Plan (1) UTI (urinary tract infection) Current Visit: Yes Status: Acute Assessment and Plan: Culture positive for VRE and yeast. Appreciate ID input. -Urine culture 05/17 growing Proteus and enterococcus species MDRO - Repeat urine culture growing yeast -Patient denying dysuria, urinary hesitancy, urinary urgency - Sanchez catheter with dark urine and sediment. -No evidence of leukocytosis or fevers -Patient has multiple antibiotic allergies including Bactrim and Zosyn which Proteus is sensitive to. 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 Patient is currently asymptomatic. Possibility that this is colonizing organism. - Nephrology has obtained lab results for proteinuria and retroperitoneal ultrasound which was normal limits. They will follow as outpatient - Urology consulted and has since signed off. No surgical evaluation at this time. Plan: Continue meropenem day 3, daptomycin day 2 per ID recommendations -ID consulted. Appreciate recommendations (2) C. difficile colitis Current Visit: Yes Status: Acute Assessment and Plan: Currently on PO Vancomycin. Will continue per recommendations. Patient is still experiencing loose bowel movements however reports only 1 daily. This is likely an acute on chronic issue Gastroenterology recommending 6 weeks of oral vancomycin, infectious disease recommended 2 weeks Continue cholestyramine Continue oral vancomycin day 6 CT of the abdomen on 05/17 showed findings consistent with colitis but could not rule out underlying malignancy. GI would like to follow as outpatient once acute illness has resolved for possible colonoscopy. (3) Acute on chronic diastolic heart failure Current Visit: Yes Status: Chronic Assessment and Plan: -Overall seems to be stable but having some wheezing today. Chest x-ray yesterday shows new small right pleural effusion with persistent bilateral interstitial opacities which may represent edema We will give 1 dose of IV Lasix and continue home dose of Lasix twice a day tomorrow (4) Morbid obesity Current Visit: Yes Status: Chronic Assessment and Plan: Chronic issue (5) Coronary artery disease Current Visit: Yes Status: Chronic Assessment and Plan: Chronic issue (6) Atrial fibrillation Current Visit: Yes Status: Chronic Assessment and Plan: Rate controlled since admission -Currently in NSR -HR 87 -CHADSVASC score 8 Plan: -Continue current medications. (7) Diabetes Current Visit: Yes Status: Chronic Assessment and Plan: -Blood sugars well controlled while inpatient -Hgb A1c 5.3 on 01/29/2018 Plan: -Continue low dose SSI (8) Anemia Current Visit: Yes Status: Chronic Assessment and Plan: Remains at baseline at this time. H/H stable at 8.8/27.3 (9) Sacral decubitus ulcer, stage II Current Visit: Yes Status: Chronic Assessment and Plan: Consult made to Wound Care. Present on admission (10) Debility Current Visit: Yes Status: Acute Assessment and Plan: PT/OT (11) COPD (chronic obstructive pulmonary disease) Current Visit: Yes Status: Chronic Assessment and Plan: Not in acute exacerbation. Continue home medications Continue inhalers this morning as above (12) History of CVA (cerebrovascular accident) Current Visit: Yes Status: Acute Assessment and Plan: Currently on Eliquis and aspirin. (13) Cirrhosis Current Visit: Yes Status: Chronic Assessment and Plan: -Likely 2/2 VELASQUEZ -CT abdomen/pelvis 05/17 showed findings suggestive of cirrhosis -Previous CT abdomen/pelvis show findings consistent with fatty liver -Patient is aware -INR 3.1, PT 35.3, AST 25, ALT 11 -Albumin 2.9 Plan: -GI consulted. Appreciate recommendation -Consider Albumin if leg edema does not improve with GERARD wrapping and leg elevation (14) DVT prophylaxis Current Visit: Yes Status: Acute Assessment and Plan: On Eliquis as above (15) Proteinuria Current Visit: Yes Status: Acute Assessment and Plan: - As above for UTI - Nephrology has been consulted and will follow as outpatient, no acute issues - Retroperitoneal ultrasound within normal limits - Time Spent with Patient Total time spent is greater than 50% in coordination of care (as documented) at patient's floor/unit and/or counseling patient: Internal Medicine: Result - Labs CBC & Chem 7: 05/25/18 14:01 05/25/18 14:01 Labs: BMP 05/24/18 07:09 Sodium 140 Potassium 3.5 Chloride 111 H Carbon Dioxide 25 BUN 11 Creatinine 0.60 Glucose 126 H Calcium 8.4 L - ABG Interpretation ABG results: PT/INR, D-dimer PT 35.3 Seconds (9.4-12.1) H 05/22/18 00:56 - Impressions Impressions Chest X-Ray 05/24/18 12:34 IMPRESSION: New small right pleural effusion. Persistent bilateral interstitial opacities which may reflect mild edema. D/ / Stella Umana MD / Stella Umana MD Interpreting Provider: Stella Umana MD Retroperitoneum Ultrasound 05/24/18 13:00 IMPRESSION: No gross hydronephrosis. D/ / Caleb Yung MD / Caleb Yung MD Interpreting Provider: Caleb Yung MD Consult Discharge Plan - Plan Referrals: Isaac De La Cruz MD [Partnered Physician] - 06/15/18 3:30 pm Nithin Hernandez [Primary Care Provider] - 05/31/18 1:45 pm <Tod Piper - Last Filed: 05/25/18 18:23> Hospitalist Progress Note - Encounter Date of Encounter: 05/25/18 - Exam Vitals: Temp Pulse Resp BP Pulse Ox 98 F 86 17 121/71 96 05/25/18 17:20 05/25/18 17:20 05/25/18 17:20 05/25/18 17:20 05/25/18 17:20 - Assessment and Plan (1) DVT prophylaxis Current Visit: Yes Status: Acute (2) Acute on chronic diastolic heart failure Current Visit: Yes Status: Chronic (3) Morbid obesity Current Visit: Yes Status: Chronic (4) Coronary artery disease Current Visit: Yes Status: Chronic (5) Atrial fibrillation Current Visit: Yes Status: Chronic (6) Diabetes Current Visit: Yes Status: Chronic (7) Anemia Current Visit: Yes Status: Chronic (8) Sacral decubitus ulcer, stage II Current Visit: Yes Status: Chronic (9) Debility Current Visit: Yes Status: Acute (10) UTI (urinary tract infection) Current Visit: Yes Status: Acute (11) COPD (chronic obstructive pulmonary disease) Current Visit: Yes Status: Chronic (12) History of CVA (cerebrovascular accident) Current Visit: Yes Status: Acute (13) Cirrhosis Current Visit: Yes Status: Chronic (14) C. difficile colitis Current Visit: Yes Status: Acute (15) Proteinuria Current Visit: Yes Status: Acute - Time Spent with Patient Total time spent is greater than 50% in coordination of care (as documented) at patient's floor/unit and/or counseling patient: Internal Medicine: Result - Labs CBC & Chem 7: 05/25/18 14:01 05/25/18 14:01 Labs: Short CBC 05/25/18 Range/Units 14:01 WBC 4.4 (4.3-11.1) K/mcL Hgb 8.8 L (11.5-15.4) g/dL Hct 27.3 L (35.3-44.9) % Plt Count 110 L (140-400) K/mcL Neutrophils # 2.4 (1.6-8.9) K/mcL BMP 05/25/18 14:01 Sodium 139 Potassium 3.7 Chloride 111 H Carbon Dioxide 24 BUN 11 Creatinine 0.60 Glucose 122 H Calcium 8.3 L - ABG Interpretation ABG results: PT/INR, D-dimer PT 35.3 Seconds (9.4-12.1) H 05/22/18 00:56 - Attending Attestation I examined this patient and my medical decision-making was reviewed with the Resident Physician on 05/25/18. I agree with the documented findings, disposition and treatment plan as described except to the extent set forth below. Ms Golden is currently admitted for C diff and UTI. She remains moderate to high risk due to potential for worsening clinical status. Ms Golden is doing OK. Her mouth is very dry. No fever or chills. No CP. No wheeze today. Exam alert comfortable at this time. Mucus membranes dry Heart reg and not tachy No wheeze abd soft I/P 1. UTI - on IV abx 2. C diff colitis Further diagnoses and plan as above. <Harpreet Wagoner - Last Filed: 05/25/18 17:36> (1) UTI (urinary tract infection) Qualifiers: Urinary tract infection type: acute cystitis Hematuria presence: without hematuria Qualified Code(s): N30.00 - Acute cystitis without hematuria (5) Coronary artery disease Qualifiers: Coronary Disease-Associated Artery/Lesion type: [place] artery [place] vs. transplanted heart: [place] heart Associated angina: without angina Qualified Code(s): I25.10 - Atherosclerotic heart disease of [place] coronary artery without angina pectoris (6) Atrial fibrillation Qualifiers: Atrial fibrillation type: paroxysmal Qualified Code(s): I48.0 - Paroxysmal atrial fibrillation (7) Diabetes Qualifiers: Diabetes mellitus type: type 2 Diabetes mellitus jail insulin use: without manager intermediate use Diabetes mellitus complication status: without complication Qualified Code(s): E11.9 - Type 2 diabetes mellitus without complications (8) Anemia Qualifiers: Anemia type: unspecified type Qualified Code(s): D64.9 - Anemia, unspecified (11) COPD (chronic obstructive pulmonary disease) Qualifiers: COPD type: unspecified COPD Qualified Code(s): J44.9 - Chronic obstructive pulmonary disease, unspecified (13) Cirrhosis Qualifiers: Hepatic cirrhosis type: unspecified hepatic cirrhosis Ascites presence: without ascites Qualified Code(s): K74.60 - Unspecified cirrhosis of liver (15) Proteinuria Qualifiers: Proteinuria type: unspecified Qualified Code(s): R80.9 - Proteinuria, unspecified <Tod Piper - Last Filed: 05/25/18 18:23> (4) Coronary artery disease Qualifiers: Coronary Disease-Associated Artery/Lesion type: [place] artery [place] vs. transplanted heart: [place] heart Associated angina: without angina Qualified Code(s): I25.10 - Atherosclerotic heart disease of [place] coronary artery without angina pectoris (5) Atrial fibrillation Qualifiers: Atrial fibrillation type: paroxysmal Qualified Code(s): I48.0 - Paroxysmal atrial fibrillation (6) Diabetes Qualifiers: Diabetes mellitus type: type 2 Diabetes mellitus manager intermediate insulin use: without manager intermediate use Diabetes mellitus complication status: without complication Qualified Code(s): E11.9 - Type 2 diabetes mellitus without complications (7) Anemia Qualifiers: Anemia type: unspecified type Qualified Code(s): D64.9 - Anemia, unspecified (10) UTI (urinary tract infection) Qualifiers: Urinary tract infection type: acute cystitis Hematuria presence: without hematuria Qualified Code(s): N30.00 - Acute cystitis without hematuria (11) COPD (chronic obstructive pulmonary disease) Qualifiers: COPD type: unspecified COPD Qualified Code(s): J44.9 - Chronic obstructive pulmonary disease, unspecified (13) Cirrhosis Qualifiers: Hepatic cirrhosis type: unspecified hepatic cirrhosis Ascites presence: without ascites Qualified Code(s): K74.60 - Unspecified cirrhosis of liver (15) Proteinuria Qualifiers: Proteinuria type: unspecified Qualified Code(s): R80.9 - Proteinuria, unspecified
[2018-05-25 14:13] LABS: Basophils % 0.7 %; Eosinophils # 0.4 K/mcL (0.0-0.6); Eosinophils % 9.7 %; Hematocrit 27.3 % (35.3-44.9); Hemoglobin 8.8 g/dL (11.5-15.4); Immature Granulocytes % 0.2 % (0-4); Lymphocytes # 1.2 K/mcL (0.6-4.6); Lymphocytes % 27.9 %; Mean Corpuscular HGB Conc 32.2 g/dL (31.6-35.5); Mean Corpuscular Hemoglobin 27.2 pg (28.0-33.3); Mean Corpuscular Volume 84.3 fL (83.0-100.0); Mean Platelet Volume 10.7 fL (9.4-12.4); Monocytes # 0.4 K/mcL (0.0-1.3); Monocytes % 7.9 %; Neutrophils # 2.4 K/mcL (1.6-8.9); Platelet Count 110 K/mcL (140-400); Red Blood Count 3.24 M/mcL (3.82-4.97); Red Cell Distribution Width 15.9 % (11.5-14.5); Segmented Neutrophils % 53.6 %
[2018-05-25] MEDS ORDERED: Furosemide 40 MG/4 ML VIAL IVP ONE (14:17)
[2018-05-25 14:33] LABS: BUN/Creatinine Ratio 18 (6-26); Blood Urea Nitrogen 11 mg/dL (8-23); Calcium 8.3 mg/dL (8.6-10.3); Carbon Dioxide 24 mEq/L (23-29); Chloride 111 mEq/L (98-107); Glucose 122 mg/dL (70-105); Osmolality,Calculated 289 (280-300); Potassium 3.7 mEq/L (3.5-5.1); Sodium 139 mEq/L (136-145); eGFR For Non-African Americans > 60 (> 60)
[2018-05-25] MEDS: Furosemide 20 MG TABLET PO SCH (17:22)
[2018-05-25] MEDS: DAPTOmycin 450 MG in 0.9 % Sodium Chloride 100 ML IVPB SCH (17:39)
[2018-05-26 01:58] LABS: Blood Urea Nitrogen 13 mg/dL (8-23); Calcium 8.4 mg/dL (8.6-10.3); Carbon Dioxide 25 mEq/L (23-29); Chloride 109 mEq/L (98-107); Glucose 114 mg/dL (70-105); Magnesium 1.6 mg/dL (1.6-2.6); Osmolality,Calculated 289 (280-300); Potassium 3.5 mEq/L (3.5-5.1); Sodium 139 mEq/L (136-145)
[2018-05-26 02:39] LABS: BUN/Creatinine Ratio 25 (6-26); eGFR For Non-African Americans > 60 (> 60)
[2018-05-26] MEDS ORDERED: *HR* LORazepam 0.5 MG TABLET PO ONE (02:42)
[2018-05-26] MEDS ORDERED: Melatonin 3 MG TABLET PO PRN (02:42)
[2018-05-26] MEDS: Cholestyramine 4 GM POWD.PACK PO SCH ×2 (07:00→21:59)
[2018-05-26] MEDS: Insulin LISPRO 300 UNITS/3 ML VIAL SQ SCH ×5 (07:00→22:00)
[2018-05-26] MEDS: Furosemide 20 MG TABLET PO SCH ×2 (07:02→17:09)
[2018-05-26 07:37] LABS: Complement Component 3 98 mg/dL (88-201); Complement Component 4 5 mg/dL (10-40)
[2018-05-26] MEDS: Meropenem 1,000 MG in Water for inj. (sterile) 20 ML 10 ML IVP SCH ×3 (08:46→17:08)
[2018-05-26] MEDS: Aspirin Enteric Coated 81 MG Tablet PO SCH (08:49)
[2018-05-26] MEDS: Lactobacillus 1 EACH CAP.SPRINK PO SCH ×2 (08:49→21:59)
[2018-05-26] MEDS: Apixaban 5 MG TABLET PO SCH ×2 (08:49→21:59)
[2018-05-26] MEDS: Vancomycin Oral Soln 125 MG/2.5 ML UDC PO SCH ×4 (08:50→22:00)
--- NOTE | 2018-05-26 13:19 | Internal Med Progress Note ---
<Fe Chavez - Last Filed: 05/26/18 16:27> Hospitalist Progress Note - Encounter Date of Encounter: 05/26/18 Time of Encounter: 16:03 - Subjective Interval History: Aixa was seen lying comfortably in bed today. She admits that her leg swelling is improving with compression, although she complains of itching as a result of having the gerard-wraps on constantly. She denies any chest pain, SOB, abdominal pain, nausea, vomiting, dysuria, hematuria. She states that see has had several loose clear bowel movements today. She also states that she didn't eat much due to not liking her food options today. We discussed the importance of finding a SNF for her to receive the remainder of her antibiotic treatment, and she was agreeable to consider other facilities since [facility] was not able to take her. Spoke with Yolie from social work about other possible options. Patient cannot afford to go home and pay for the antibiotics herself. - Exam Vitals: Temp Pulse Resp BP Pulse Ox 98.7 F 92 17 137/75 93 05/26/18 10:05 05/26/18 10:05 05/26/18 10:05 05/26/18 10:05 05/26/18 10:05 Exam: Gen.: NAD. AAOx3. Resting comfortably in bed HEENT: EOMI, Normocephalic, atraumatic, lips very cracked Pulmonary: normal respiratory effort, equal chest expansion Abdomen: soft, nontender, no guarding, no rebound. Extremities: Legs wrapped in Gerard bandage, swelling improved, no cyanosis or clubbing Neuro: no focal deficits Psych: Appropriate mood and behavior - Assessment and Plan (1) Recurrent UTI (urinary tract infection) Current Visit: Yes Status: Acute Assessment and Plan: History of recurrent UTIs with MDRO, considering possible colonization versus Cultures positive for VRE, proteus, sandro Patient is asymptomatic; denies dysuria, urgency, hesitancy Sanchez catheter with dark urine sediment Remains afebrile, no leukocytosis ID recommended Meropenum and Daptomycin x 14 days considering MDRO, patient allergies, and sensitivities Nephrology recommending outpatient follow-up Urology not recommending surgical intervention at this time, signed off Continue Meropenum day 4 (stop 06/01) , Daptomycin day 3 (stop 06/06) per ID recs Social work trying to find placement for patient, [facility] was unable to take her. (2) C. difficile colitis Current Visit: Yes Status: Acute Assessment and Plan: Colitis secondary to recurrent C. Diff versus malignancy. Recent abx use and history of C. Diff in December 2017. WBC wnl C. Diff positive on stool occult Abdominal CT - mod - severe wall thickening of cecum, ascending colon, and rectum concerning for colitis versus malignancy. Cirrhosis Patient reporting 1-3 clear watery small BMs daily, denies fever, chills, abd pain, melena, hematochezia, abdomen soft non-tender Continue oral vanc day 6 of 6 week duration per GI recs Continue Cholestryamine Continue probiotic Follow-up with GI outpatient (3) Proteinuria Current Visit: Yes Status: Acute Assessment and Plan: As above for UTI Nephrology to follow up as outpatient Retroperitoneal ultrasound within normal limits (4) Acute on chronic diastolic heart failure Current Visit: Yes Status: Resolved Assessment and Plan: Stable, breathing improved 2300 output yesterday after IV lasix x1 LE swelling improved Continue home Lasix PO 20 BID (5) Acute on chronic anemia Current Visit: Yes Status: Acute Assessment and Plan: Chronic. Stable at 8.8 today. No signs of active bleeding (6) Cirrhosis Current Visit: Yes Status: Chronic Assessment and Plan: Likely VELASQUEZ, no history of drug or alcohol abuse LFTs within normal limits Abdominal CT 05/17 - cirrhosis with unchanged moderate mesenteric edema Patient will need outpatient follow-up with GI (7) Atrial fibrillation Current Visit: Yes Status: Chronic Assessment and Plan: Chronic, rate controlled Continue home meds (8) Diabetes Current Visit: Yes Status: Chronic Assessment and Plan: Blood sugars well controlled while inpatient Hgb A1c 5.3 on 01/29/2018 Continue low dose SSI (9) Coronary artery disease Current Visit: Yes Status: Chronic Assessment and Plan: Chronic. Continue home meds (10) Pelvic mass Current Visit: No Status: Chronic Assessment and Plan: Known to patient Following with PCP Recommended [employer] follow-up as outpatient (11) Sacral decubitus ulcer, stage II Current Visit: Yes Status: Chronic Assessment and Plan: wound care consulted present on admission (12) Morbid obesity Current Visit: Yes Status: Chronic DVT Prophylaxis: Eliquis - Time Spent with Patient Total time spent is greater than 50% in coordination of care (as documented) at patient's floor/unit and/or counseling patient: 25 - 35 minutes Internal Medicine: Result - Labs CBC & Chem 7: 05/25/18 14:01 05/26/18 01:09 Labs: Short CBC 05/25/18 Range/Units 14:01 WBC 4.4 (4.3-11.1) K/mcL Hgb 8.8 L (11.5-15.4) g/dL Hct 27.3 L (35.3-44.9) % Plt Count 110 L (140-400) K/mcL Neutrophils # 2.4 (1.6-8.9) K/mcL BMP 05/25/18 05/26/18 14:01 01:09 Sodium 139 139 Potassium 3.7 3.5 Chloride 111 H 109 H Carbon Dioxide 24 25 BUN 11 13 Creatinine 0.60 0.53 L Glucose 122 H 114 H Calcium 8.3 L 8.4 L - ABG Interpretation ABG results: PT/INR, D-dimer PT 35.3 Seconds (9.4-12.1) H 05/22/18 00:56 Consult Discharge Plan - Plan Referrals: Isaac De La Cruz MD [Partnered Physician] - 06/15/18 3:30 pm Nithin Hernandez [Primary Care Provider] - 05/31/18 1:45 pm <Tod Piper - Last Filed: 05/26/18 17:42> Hospitalist Progress Note - Encounter Date of Encounter: 05/26/18 - Exam Vitals: Temp Pulse Resp BP Pulse Ox 98.2 F 86 17 110/66 96 05/26/18 13:41 05/26/18 13:41 05/26/18 13:41 05/26/18 13:41 05/26/18 13:41 - Assessment and Plan (1) DVT prophylaxis Current Visit: Yes Status: Acute (2) Acute on chronic diastolic heart failure Current Visit: Yes Status: Chronic (3) Morbid obesity Current Visit: Yes Status: Chronic (4) Coronary artery disease Current Visit: Yes Status: Chronic (5) Atrial fibrillation Current Visit: Yes Status: Chronic (6) Diabetes Current Visit: Yes Status: Chronic (7) Anemia Current Visit: Yes Status: Suspected (8) Sacral decubitus ulcer, stage II Current Visit: Yes Status: Chronic (9) Debility Current Visit: Yes Status: Acute (10) UTI (urinary tract infection) Current Visit: Yes Status: Acute (11) COPD (chronic obstructive pulmonary disease) Current Visit: Yes Status: Chronic (12) History of CVA (cerebrovascular accident) Current Visit: Yes Status: Acute (13) Cirrhosis Current Visit: Yes Status: Chronic (14) C. difficile colitis Current Visit: Yes Status: Acute (15) Proteinuria Current Visit: Yes Status: Acute - Time Spent with Patient Total time spent is greater than 50% in coordination of care (as documented) at patient's floor/unit and/or counseling patient: Internal Medicine: Result - Labs CBC & Chem 7: 05/25/18 14:01 05/26/18 01:09 Labs: BMP 05/26/18 01:09 Sodium 139 Potassium 3.5 Chloride 109 H Carbon Dioxide 25 BUN 13 Creatinine 0.53 L Glucose 114 H Calcium 8.4 L - ABG Interpretation ABG results: PT/INR, D-dimer PT 35.3 Seconds (9.4-12.1) H 05/22/18 00:56 - Attending Attestation I examined this patient and my medical decision-making was reviewed with the Resident Physician on 05/26/18. I agree with the documented findings, disposition and treatment plan as described except to the extent set forth below. Ms Golden is currently admitted for UTI and acute C diff colitis. She remains moderate to high risk due to potential for worsening clinical status. Ms Golden is doing OK. No fever or chills. No wheezing now. No abd pain. Having clear bowel movements. Still with hematuria. Exam alert Comfortable Mucus membranes dry Heart distant' No wheeze abd soft Edema present I/P 1. Hematuria - has been seen by urology and no further intervention planned. She has been seen by [facility] in the past. Will arrange further follow up and another opinion for her. 2. VRE UTI - on IV abx Further diagnoses and plan as above Pt initially only agreeable to go to [facility] and they cannot take her. She was informed she is ready for discharge and needs IV abx till 06/06 and if she goes home she will need to pay a portion of the cost. She is agreeable to finding another SNF. Will address on Tuesday. <Fe Chavez - Last Filed: 05/26/18 16:27> (3) Proteinuria Qualifiers: Proteinuria type: unspecified Qualified Code(s): R80.9 - Proteinuria, unspecified (6) Cirrhosis Qualifiers: Hepatic cirrhosis type: unspecified hepatic cirrhosis Ascites presence: without ascites Qualified Code(s): K74.60 - Unspecified cirrhosis of liver (7) Atrial fibrillation Qualifiers: Atrial fibrillation type: paroxysmal Qualified Code(s): I48.0 - Paroxysmal atrial fibrillation (8) Diabetes Qualifiers: Diabetes mellitus type: type 2 Diabetes mellitus senior living insulin use: without terminal worker use Diabetes mellitus complication status: without complication Qualified Code(s): E11.9 - Type 2 diabetes mellitus without complications (9) Coronary artery disease Qualifiers: Coronary Disease-Associated Artery/Lesion type: [place] artery [place] vs. transplanted heart: [place] heart Associated angina: without angina Qualified Code(s): I25.10 - Atherosclerotic heart disease of [place] coronary artery without angina pectoris <Tod Piper A - Last Filed: 05/26/18 17:42> (4) Coronary artery disease Qualifiers: Coronary Disease-Associated Artery/Lesion type: [place] artery [place] vs. transplanted heart: [place] heart Associated angina: without angina Qualified Code(s): I25.10 - Atherosclerotic heart disease of [place] coronary artery without angina pectoris (5) Atrial fibrillation Qualifiers: Atrial fibrillation type: paroxysmal Qualified Code(s): I48.0 - Paroxysmal atrial fibrillation (6) Diabetes Qualifiers: Diabetes mellitus type: type 2 Diabetes mellitus terminal worker insulin use: without senior living use Diabetes mellitus complication status: without complication Qualified Code(s): E11.9 - Type 2 diabetes mellitus without complications (7) Anemia Qualifiers: Anemia type: iron deficiency Iron deficiency anemia type: chronic blood loss Qualified Code(s): D50.0 - Iron deficiency anemia secondary to blood loss ( chronic) (10) UTI (urinary tract infection) Qualifiers: Urinary tract infection type: acute cystitis Hematuria presence: with hematuria Qualified Code(s): N30.01 - Acute cystitis with hematuria (11) COPD (chronic obstructive pulmonary disease) Qualifiers: COPD type: unspecified COPD Qualified Code(s): J44.9 - Chronic obstructive pulmonary disease, unspecified (13) Cirrhosis Qualifiers: Hepatic cirrhosis type: unspecified hepatic cirrhosis Ascites presence: without ascites Qualified Code(s): K74.60 - Unspecified cirrhosis of liver (15) Proteinuria Qualifiers: Proteinuria type: unspecified Qualified Code(s): R80.9 - Proteinuria, unspecified
[2018-05-26 14:16] LABS: ANA IgG by ELISA NONE DETECTED (None Detected); Myeloperoxidase Ab 0 AU/mL (0-19); Serine Protease-3 Antibody 1 AU/mL (0-19)
[2018-05-26] MEDS: DAPTOmycin 450 MG in 0.9 % Sodium Chloride 100 ML IVPB SCH (17:13)
[2018-05-27] MEDS: Meropenem 1,000 MG in Water for inj. (sterile) 20 ML 10 ML IVP SCH ×3 (00:33→17:45)
[2018-05-27] MEDS: Vancomycin Oral Soln 125 MG/2.5 ML UDC PO SCH ×4 (08:41→20:01)
[2018-05-27] MEDS: Apixaban 5 MG TABLET PO SCH ×2 (08:42→20:00)
[2018-05-27] MEDS: Aspirin Enteric Coated 81 MG Tablet PO SCH (08:42)
[2018-05-27] MEDS: Lactobacillus 1 EACH CAP.SPRINK PO SCH ×2 (08:42→20:00)
[2018-05-27] MEDS: Furosemide 20 MG TABLET PO SCH ×2 (08:42→17:44)
[2018-05-27] MEDS: Insulin LISPRO 300 UNITS/3 ML VIAL SQ SCH ×4 (10:15→20:37)
--- NOTE | 2018-05-27 13:19 | Internal Med Progress Note ---
<Fe Chavez - Last Filed: 05/27/18 14:04> Hospitalist Progress Note - Encounter Date of Encounter: 05/27/18 Time of Encounter: 09:37 - Subjective Interval History: Aixa was seen lying comfortably in bed today. Leg swelling improved . Pending SNF placement, patient cannot afford to go home and pay for the antibiotics herself. - Exam Vitals: Temp Pulse Resp BP Pulse Ox 98.4 F 93 16 92/51 97 05/27/18 11:51 05/27/18 11:51 05/27/18 11:51 05/27/18 11:51 05/27/18 11:51 Exam: Gen.: NAD. AAOx3. Resting comfortably in bed HEENT: Normocephalic, atraumatic, lips very cracked Pulmonary: normal respiratory effort, equal chest expansion Abdomen: soft, nontender, no guarding, no rebound. Extremities: Legs wrapped in Gerard bandage, swelling improved, no cyanosis or clubbing Neuro: no focal deficits Psych: Appropriate mood and behavior - Assessment and Plan (1) Recurrent UTI (urinary tract infection) Current Visit: Yes Status: Acute Assessment and Plan: History of recurrent UTIs with MDRO, considering possible colonization versus Cultures positive for VRE, proteus, sandro Patient is asymptomatic; denies dysuria, urgency, hesitancy Sanchez catheter with dark urine sediment Remains afebrile, no leukocytosis ID recommended Meropenum and Daptomycin x 14 days considering MDRO, patient allergies, and sensitivities Nephrology recommending outpatient follow-up Urology not recommending surgical intervention at this time, signed off Continue Meropenum day 5 (stop 06/01) , Daptomycin day 4 (stop 06/06) per ID recs Social work trying to find placement for patient, [facility] was unable to take her. (2) C. difficile colitis Current Visit: Yes Status: Acute Assessment and Plan: Colitis secondary to recurrent C. Diff versus malignancy. Recent abx use and history of C. Diff in December 2017. WBC wnl C. Diff positive on stool occult Abdominal CT 05/17 - mod - severe wall thickening of cecum, ascending colon, and rectum concerning for colitis versus malignancy. Cirrhosis. Continue oral vanc day 7 of 6 week duration per GI recs Continue Cholestryamine Continue probiotic Follow-up with GI outpatient (3) Proteinuria Current Visit: Yes Status: Acute Assessment and Plan: As above for UTI Nephrology to follow up as outpatient Retroperitoneal ultrasound within normal limits (4) Acute on chronic diastolic heart failure Current Visit: Yes Status: Resolved Assessment and Plan: Stable, breathing improved 400 output so far today LE swelling improving Continue home Lasix PO 20 BID (5) Acute on chronic anemia Current Visit: Yes Status: Acute Assessment and Plan: Chronic. Hgb has remained stable during hospitalization No signs of active bleeding Outpatient follow up with PCP (6) Cirrhosis Current Visit: Yes Status: Chronic Assessment and Plan: Likely VELASQUEZ, no history of drug or alcohol abuse LFTs within normal limits Abdominal CT 05/17 - cirrhosis with unchanged moderate mesenteric edema Patient will need outpatient follow-up with GI (7) Atrial fibrillation Current Visit: Yes Status: Chronic Assessment and Plan: Chronic, rate controlled Continue home meds (8) Diabetes Current Visit: Yes Status: Chronic Assessment and Plan: Blood sugars well controlled while inpatient Hgb A1c 5.3 on 01/29/2018 Continue low dose SSI (9) Coronary artery disease Current Visit: Yes Status: Chronic Assessment and Plan: Continue home meds (10) Pelvic mass Current Visit: No Status: Chronic Assessment and Plan: Known to patient Following with PCP Recommended ASSISTANT BRANCH MANAGER follow-up as outpatient (11) Sacral decubitus ulcer, stage II Current Visit: Yes Status: Chronic Assessment and Plan: wound care consulted present on admission (12) Morbid obesity Current Visit: Yes Status: Chronic DVT Prophylaxis: Eliquis - Time Spent with Patient Total time spent is greater than 50% in coordination of care (as documented) at patient's floor/unit and/or counseling patient: Internal Medicine: Result - Labs CBC & Chem 7: 05/25/18 14:01 05/26/18 01:09 - ABG Interpretation ABG results: PT/INR, D-dimer PT 35.3 Seconds (9.4-12.1) H 05/22/18 00:56 Consult Discharge Plan - Plan Referrals: Isaac De La Cruz MD [Partnered Physician] - 06/15/18 3:30 pm Nithin Hernandez [Primary Care Provider] - 05/31/18 1:45 pm <Tod Piper - Last Filed: 05/27/18 16:29> Hospitalist Progress Note - Encounter Date of Encounter: 05/27/18 - Exam Vitals: Temp Pulse Resp BP Pulse Ox 99 F 88 16 105/63 97 05/27/18 15:19 05/27/18 15:19 05/27/18 15:19 05/27/18 15:19 05/27/18 15:19 - Assessment and Plan (1) DVT prophylaxis Current Visit: Yes Status: Acute (2) Acute on chronic diastolic heart failure Current Visit: Yes Status: Chronic (3) Morbid obesity Current Visit: Yes Status: Chronic (4) Coronary artery disease Current Visit: Yes Status: Chronic (5) Atrial fibrillation Current Visit: Yes Status: Chronic (6) Diabetes Current Visit: Yes Status: Chronic (7) Anemia Current Visit: Yes Status: Suspected (8) Sacral decubitus ulcer, stage II Current Visit: Yes Status: Chronic (9) Debility Current Visit: Yes Status: Acute (10) UTI (urinary tract infection) Current Visit: Yes Status: Acute (11) COPD (chronic obstructive pulmonary disease) Current Visit: Yes Status: Chronic (12) History of CVA (cerebrovascular accident) Current Visit: Yes Status: Acute (13) Cirrhosis Current Visit: Yes Status: Chronic (14) C. difficile colitis Current Visit: Yes Status: Acute (15) Proteinuria Current Visit: Yes Status: Acute - Time Spent with Patient Total time spent is greater than 50% in coordination of care (as documented) at patient's floor/unit and/or counseling patient: Internal Medicine: Result - Labs CBC & Chem 7: 05/25/18 14:01 05/26/18 01:09 - ABG Interpretation ABG results: PT/INR, D-dimer PT 35.3 Seconds (9.4-12.1) H 05/22/18 00:56 - Attending Attestation I examined this patient and my medical decision-making was reviewed with the Resident Physician on 05/27/18. I agree with the documented findings, disposition and treatment plan as described except to the extent set forth below. Ms Golden is currently admitted for c diff colitis and UTI. She remains moderate to high risk due to potential for worsening clinical status. Ms Golden is doing OK. Edema improving. No fever or chills. No CP or SOB. Exam alert Comfortable Mucus membranes dry Heart not tachy No wheeze abd soft Edema present I/P 1. Hematuria - will recommend referral at discharge 2. UTI - on iV abx 3. C diff Pt is agreeable to SNF for IV abx due to cost Further diagnoses and plan as above. <Fe Chavez - Last Filed: 05/27/18 14:04> (3) Proteinuria Qualifiers: Proteinuria type: unspecified Qualified Code(s): R80.9 - Proteinuria, unspecified (6) Cirrhosis Qualifiers: Hepatic cirrhosis type: unspecified hepatic cirrhosis Ascites presence: without ascites Qualified Code(s): K74.60 - Unspecified cirrhosis of liver (7) Atrial fibrillation Qualifiers: Atrial fibrillation type: paroxysmal Qualified Code(s): I48.0 - Paroxysmal atrial fibrillation (8) Diabetes Qualifiers: Diabetes mellitus type: type 2 Diabetes mellitus superintendent marine oil terminal insulin use: without usp use Diabetes mellitus complication status: without complication Qualified Code(s): E11.9 - Type 2 diabetes mellitus without complications (9) Coronary artery disease Qualifiers: Coronary Disease-Associated Artery/Lesion type: [place] artery [place] vs. transplanted heart: [place] heart Associated angina: without angina Qualified Code(s): I25.10 - Atherosclerotic heart disease of [place] coronary artery without angina pectoris <Tod Piper - Last Filed: 05/27/18 16:29> (4) Coronary artery disease Qualifiers: Coronary Disease-Associated Artery/Lesion type: [place] artery [place] vs. transplanted heart: [place] heart Associated angina: without angina Qualified Code(s): I25.10 - Atherosclerotic heart disease of [place] coronary artery without angina pectoris (5) Atrial fibrillation Qualifiers: Atrial fibrillation type: paroxysmal Qualified Code(s): I48.0 - Paroxysmal atrial fibrillation (6) Diabetes Qualifiers: Diabetes mellitus type: type 2 Diabetes mellitus usp insulin use: without usp use Diabetes mellitus complication status: without complication Qualified Code(s): E11.9 - Type 2 diabetes mellitus without complications (7) Anemia Qualifiers: Anemia type: iron deficiency Iron deficiency anemia type: chronic blood loss Qualified Code(s): D50.0 - Iron deficiency anemia secondary to blood loss ( chronic) (10) UTI (urinary tract infection) Qualifiers: Urinary tract infection type: acute cystitis Hematuria presence: with hematuria Qualified Code(s): N30.01 - Acute cystitis with hematuria (11) COPD (chronic obstructive pulmonary disease) Qualifiers: COPD type: unspecified COPD Qualified Code(s): J44.9 - Chronic obstructive pulmonary disease, unspecified (13) Cirrhosis Qualifiers: Hepatic cirrhosis type: unspecified hepatic cirrhosis Ascites presence: without ascites Qualified Code(s): K74.60 - Unspecified cirrhosis of liver (15) Proteinuria Qualifiers: Proteinuria type: unspecified Qualified Code(s): R80.9 - Proteinuria, unspecified
[2018-05-27] MEDS: DAPTOmycin 450 MG in 0.9 % Sodium Chloride 100 ML IVPB SCH (17:45)
[2018-05-27] MEDS: Cholestyramine 4 GM POWD.PACK PO SCH (20:01)
[2018-05-28] MEDS: Meropenem 1,000 MG in Water for inj. (sterile) 20 ML 10 ML IVP SCH ×3 (00:38→15:22)
[2018-05-28 04:59] LABS: Basophils % 0.4 %; Eosinophils # 0.4 K/mcL (0.0-0.6); Eosinophils % 8.5 %; Hematocrit 26.2 % (35.3-44.9); Hemoglobin 8.6 g/dL (11.5-15.4); Immature Granulocytes % 0.4 % (0-4); Lymphocytes # 1.8 K/mcL (0.6-4.6); Lymphocytes % 38.9 %; Mean Corpuscular HGB Conc 32.8 g/dL (31.6-35.5); Mean Corpuscular Hemoglobin 27.4 pg (28.0-33.3); Mean Corpuscular Volume 83.4 fL (83.0-100.0); Mean Platelet Volume 10.9 fL (9.4-12.4); Monocytes # 0.5 K/mcL (0.0-1.3); Monocytes % 10.8 %; Neutrophils # 1.9 K/mcL (1.6-8.9); Platelet Count 117 K/mcL (140-400); Red Blood Count 3.14 M/mcL (3.82-4.97); Red Cell Distribution Width 15.8 % (11.5-14.5)
[2018-05-28 05:19] LABS: BUN/Creatinine Ratio 30 (6-26); Blood Urea Nitrogen 16 mg/dL (8-23); Calcium 8.2 mg/dL (8.6-10.3); Carbon Dioxide 30 mEq/L (23-29); Chloride 105 mEq/L (98-107); Glucose 121 mg/dL (70-105); Osmolality,Calculated 290 (280-300); Potassium 3.1 mEq/L (3.5-5.1); Sodium 139 mEq/L (136-145); eGFR For Non-African Americans > 60 (> 60)
[2018-05-28] MEDS: Insulin LISPRO 300 UNITS/3 ML VIAL SQ SCH ×4 (07:31→22:58)
[2018-05-28] MEDS: Apixaban 5 MG TABLET PO SCH ×2 (07:43→22:58)
[2018-05-28] MEDS: Furosemide 20 MG TABLET PO SCH ×2 (07:43→17:43)
[2018-05-28] MEDS: Lactobacillus 1 EACH CAP.SPRINK PO SCH ×2 (07:43→21:54)
[2018-05-28] MEDS: Aspirin Enteric Coated 81 MG Tablet PO SCH (07:44)
[2018-05-28] MEDS: Vancomycin Oral Soln 125 MG/2.5 ML UDC PO SCH ×4 (07:45→21:54)
[2018-05-28] MEDS ORDERED: Potassium Chloride 40 MEQ, Lidocaine 1% 2 ML in D5% in Water 500 ML IVPB ONE (08:03)
--- NOTE | 2018-05-28 11:41 | Internal Med Progress Note ---
<Tod Piper - Last Filed: 05/28/18 15:56> Hospitalist Progress Note - Encounter Date of Encounter: 05/28/18 - Exam Vitals: Temp Pulse Resp BP Pulse Ox 97.8 F 70 16 102/55 95 05/28/18 15:20 05/28/18 15:20 05/28/18 15:20 05/28/18 15:20 05/28/18 15:20 - Assessment and Plan (1) DVT prophylaxis Current Visit: Yes Status: Acute (2) Acute on chronic diastolic heart failure Current Visit: Yes Status: Chronic (3) Morbid obesity Current Visit: Yes Status: Chronic (4) Coronary artery disease Current Visit: Yes Status: Chronic (5) Atrial fibrillation Current Visit: Yes Status: Chronic (6) Diabetes Current Visit: Yes Status: Chronic (7) Anemia Current Visit: Yes Status: Suspected (8) Sacral decubitus ulcer, stage II Current Visit: Yes Status: Chronic (9) Debility Current Visit: Yes Status: Acute (10) UTI (urinary tract infection) Current Visit: Yes Status: Acute (11) COPD (chronic obstructive pulmonary disease) Current Visit: Yes Status: Chronic (12) History of CVA (cerebrovascular accident) Current Visit: Yes Status: Acute (13) Cirrhosis Current Visit: Yes Status: Chronic (14) C. difficile colitis Current Visit: Yes Status: Acute (15) Proteinuria Current Visit: Yes Status: Acute - Time Spent with Patient Total time spent is greater than 50% in coordination of care (as documented) at patient's floor/unit and/or counseling patient: Internal Medicine: Result - Labs CBC & Chem 7: 05/28/18 04:00 05/28/18 04:00 Labs: Short CBC 05/28/18 Range/Units 04:00 WBC 4.7 (4.3-11.1) K/mcL Hgb 8.6 L (11.5-15.4) g/dL Hct 26.2 L (35.3-44.9) % Plt Count 117 L (140-400) K/mcL Neutrophils # 1.9 (1.6-8.9) K/mcL BMP 05/28/18 04:00 Sodium 139 Potassium 3.1 L Chloride 105 Carbon Dioxide 30 H BUN 16 Creatinine 0.53 L Glucose 121 H Calcium 8.2 L - ABG Interpretation ABG results: PT/INR, D-dimer PT 35.3 Seconds (9.4-12.1) H 05/22/18 00:56 Consult Discharge Plan - Plan Referrals: Isaac De La Cruz MD [Partnered Physician] - 06/15/18 3:30 pm Nithin Hernandez [Primary Care Provider] - 05/31/18 1:45 pm - Attending Attestation I examined this patient and my medical decision-making was reviewed with the Resident Physician on 05/28/18. I agree with the documented findings, disposition and treatment plan as described except to the extent set forth below. Ms Golden is currently admitted for acute C diff and UTI. She remains moderate to high risk due to potential for worsening clinical status. Ms Golden is about the same. No fever or chills. Awaiting SNF placement for IV abx. Exam Alert Comfortable Mucus membranes dry Heart not tachy No wheeze Abd soft I/P 1. C diff 2. VRE UTI Further diagnoses and plan as above. <Fe Chavez - Last Filed: 05/28/18 16:49> Hospitalist Progress Note - Encounter Date of Encounter: 05/28/18 Time of Encounter: 15:50 - Subjective Interval History: Aixa was seen lying comfortably in bed today. Leg swelling improved . Admits to 1-2 loose mucoid BMs today. Discussed SNF placement with patient again today with hopes of placement and dicharge tomorrow. - Exam Vitals: Temp Pulse Resp BP Pulse Ox 98.4 F 71 15 101/59 96 05/28/18 10:37 05/28/18 10:37 05/28/18 10:37 05/28/18 10:37 05/28/18 10:37 Exam: Gen.: NAD. AAOx3. Resting comfortably in bed HEENT: Normocephalic, atraumatic, lips very cracked Pulmonary: normal respiratory effort, equal chest expansion Abdomen: soft, nontender, no guarding, no rebound. Extremities: Legs not wrapped today, swelling improved, no cyanosis or clubbing Neuro: no focal deficits Psych: Appropriate mood and behavior - Assessment and Plan (1) Recurrent UTI (urinary tract infection) Current Visit: Yes Status: Acute Assessment and Plan: History of recurrent UTIs with MDRO, considering possible colonization versus Cultures positive for VRE, proteus, sandro Patient is asymptomatic; denies dysuria, urgency, hesitancy Sanchez catheter with dark urine sediment, freight coordinator in color today but still dark Remains afebrile, no leukocytosis ID recommended Meropenum and Daptomycin x 14 days considering MDRO, patient allergies, and sensitivities Nephrology recommending outpatient follow-up Urology not recommending surgical intervention at this time, signed off Continue Meropenum day 6 (stop 06/01) , Daptomycin day 5 (stop 06/06) per ID recs Social work trying to find placement for patient, [facility] was unable to take her. (2) C. difficile colitis Current Visit: Yes Status: Acute Assessment and Plan: Colitis secondary to recurrent C. Diff versus malignancy. Recent abx use and history of C. Diff in December 2017. WBC wnl C. Diff positive on stool occult Abdominal CT 05/17 - mod - severe wall thickening of cecum, ascending colon, and rectum concerning for colitis versus malignancy. Cirrhosis. Continue oral vanc day 8 of 6 week therapy per GI recs Continue Cholestryamine Continue probiotic Follow-up with GI outpatient (3) Proteinuria Current Visit: Yes Status: Acute Assessment and Plan: As above for UTI Nephrology to follow up as outpatient Retroperitoneal ultrasound within normal limits (4) Acute on chronic diastolic heart failure Current Visit: Yes Status: Resolved Assessment and Plan: Stable, breathing improved LE swelling improving Continue home Lasix PO 20 BID (5) Acute on chronic anemia Current Visit: Yes Status: Acute Assessment and Plan: Chronic. Hgb has remained stable during hospitalization No signs of active bleeding Outpatient follow up with PCP (6) Cirrhosis Current Visit: Yes Status: Chronic Assessment and Plan: Likely VELASQUEZ, no history of drug or alcohol abuse LFTs within normal limits Abdominal CT 05/17 - cirrhosis with unchanged moderate mesenteric edema Patient will need outpatient follow-up with GI (7) Atrial fibrillation Current Visit: Yes Status: Chronic Assessment and Plan: Chronic, rate controlled Continue home meds (8) Diabetes Current Visit: Yes Status: Chronic Assessment and Plan: Blood sugars well controlled while inpatient Hgb A1c 5.3 on 01/29/2018 Continue low dose SSI (9) Coronary artery disease Current Visit: Yes Status: Chronic Assessment and Plan: Continue home meds (10) Pelvic mass Current Visit: Yes Status: Chronic Assessment and Plan: Known to patient Following with PCP Recommended CARE MANAGEMENT COORDINATOR follow-up as outpatient (11) Sacral decubitus ulcer, stage II Current Visit: Yes Status: Chronic Assessment and Plan: wound care consulted present on admission (12) Morbid obesity Current Visit: Yes Status: Chronic DVT Prophylaxis: Eliquis - Time Spent with Patient Total time spent is greater than 50% in coordination of care (as documented) at patient's floor/unit and/or counseling patient: Internal Medicine: Result - Labs CBC & Chem 7: 05/28/18 04:00 05/28/18 04:00 Labs: Short CBC 05/28/18 Range/Units 04:00 WBC 4.7 (4.3-11.1) K/mcL Hgb 8.6 L (11.5-15.4) g/dL Hct 26.2 L (35.3-44.9) % Plt Count 117 L (140-400) K/mcL Neutrophils # 1.9 (1.6-8.9) K/mcL BMP 05/28/18 04:00 Sodium 139 Potassium 3.1 L Chloride 105 Carbon Dioxide 30 H BUN 16 Creatinine 0.53 L Glucose 121 H Calcium 8.2 L - ABG Interpretation ABG results: PT/INR, D-dimer PT 35.3 Seconds (9.4-12.1) H 05/22/18 00:56 <Tod Piper - Last Filed: 05/28/18 15:56> (4) Coronary artery disease Qualifiers: Coronary Disease-Associated Artery/Lesion type: [place] artery [place] vs. transplanted heart: [place] heart Associated angina: without angina Qualified Code(s): I25.10 - Atherosclerotic heart disease of [place] coronary artery without angina pectoris (5) Atrial fibrillation Qualifiers: Atrial fibrillation type: paroxysmal Qualified Code(s): I48.0 - Paroxysmal atrial fibrillation (6) Diabetes Qualifiers: Diabetes mellitus type: type 2 Diabetes mellitus custodial insulin use: without chief technician use Diabetes mellitus complication status: without complication Qualified Code(s): E11.9 - Type 2 diabetes mellitus without complications (7) Anemia Qualifiers: Anemia type: iron deficiency Iron deficiency anemia type: chronic blood loss Qualified Code(s): D50.0 - Iron deficiency anemia secondary to blood loss ( chronic) (10) UTI (urinary tract infection) Qualifiers: Urinary tract infection type: acute cystitis Hematuria presence: with hematuria Qualified Code(s): N30.01 - Acute cystitis with hematuria (11) COPD (chronic obstructive pulmonary disease) Qualifiers: COPD type: unspecified COPD Qualified Code(s): J44.9 - Chronic obstructive pulmonary disease, unspecified (13) Cirrhosis Qualifiers: Hepatic cirrhosis type: unspecified hepatic cirrhosis Ascites presence: without ascites Qualified Code(s): K74.60 - Unspecified cirrhosis of liver (15) Proteinuria Qualifiers: Proteinuria type: unspecified Qualified Code(s): R80.9 - Proteinuria, unspecified <Fe Chavez C - Last Filed: 05/28/18 16:49> (3) Proteinuria Qualifiers: Proteinuria type: unspecified Qualified Code(s): R80.9 - Proteinuria, unspecified (6) Cirrhosis Qualifiers: Hepatic cirrhosis type: unspecified hepatic cirrhosis Ascites presence: without ascites Qualified Code(s): K74.60 - Unspecified cirrhosis of liver (7) Atrial fibrillation Qualifiers: Atrial fibrillation type: paroxysmal Qualified Code(s): I48.0 - Paroxysmal atrial fibrillation (8) Diabetes Qualifiers: Diabetes mellitus type: type 2 Diabetes mellitus chief technician insulin use: without custodial use Diabetes mellitus complication status: without complication Qualified Code(s): E11.9 - Type 2 diabetes mellitus without complications (9) Coronary artery disease Qualifiers: Coronary Disease-Associated Artery/Lesion type: [place] artery [place] vs. transplanted heart: [place] heart Associated angina: without angina Qualified Code(s): I25.10 - Atherosclerotic heart disease of [place] coronary artery without angina pectoris
[2018-05-28] MEDS: DAPTOmycin 450 MG in 0.9 % Sodium Chloride 100 ML IVPB SCH (17:43)
[2018-05-28] MEDS: Cholestyramine 4 GM POWD.PACK PO SCH (22:58)
[2018-05-29] MEDS: Meropenem 1,000 MG in Water for inj. (sterile) 20 ML 10 ML IVP SCH ×3 (01:23→16:24)
[2018-05-29] MEDS: Insulin LISPRO 300 UNITS/3 ML VIAL SQ SCH ×3 (08:15→16:24)
[2018-05-29] MEDS: Furosemide 20 MG TABLET PO SCH (08:18)
[2018-05-29] MEDS: Aspirin Enteric Coated 81 MG Tablet PO SCH (08:27)
[2018-05-29] MEDS: Lactobacillus 1 EACH CAP.SPRINK PO SCH ×2 (08:27→21:28)
[2018-05-29] MEDS: Apixaban 5 MG TABLET PO SCH ×2 (08:27→21:28)
[2018-05-29] MEDS: Vancomycin Oral Soln 125 MG/2.5 ML UDC PO SCH ×4 (08:28→21:28)
[2018-05-29 10:54] LABS: BUN/Creatinine Ratio 23 (6-26); Blood Urea Nitrogen 14 mg/dL (8-23); Calcium 8.3 mg/dL (8.6-10.3); Carbon Dioxide 30 mEq/L (23-29); Chloride 103 mEq/L (98-107); Glucose 135 mg/dL (70-105); Osmolality,Calculated 291 (280-300); Potassium 3.3 mEq/L (3.5-5.1); Sodium 139 mEq/L (136-145); eGFR For Non-African Americans > 60 (> 60)
[2018-05-29] MEDS: DAPTOmycin 450 MG in 0.9 % Sodium Chloride 100 ML IVPB SCH (16:25)
--- NOTE | 2018-05-29 16:27 | Internal Med Progress Note ---
<Fe Chavez - Last Filed: 05/29/18 16:24> Hospitalist Progress Note - Encounter Date of Encounter: 05/29/18 Time of Encounter: 14:05 - Subjective Interval History: Aixa was seen lying comfortably in bed today. Leg swelling stable. Admits to 1-2 loose mucoid BMs again today. Admits to mild diffuse abdominal pain. Denies chest pain, SOB, nausea, vomitting. Waiting for SNF placement. - Exam Vitals: Temp Pulse Resp BP Pulse Ox 98.8 F 88 16 103/55 97 05/29/18 14:53 05/29/18 14:53 05/29/18 14:53 05/29/18 14:53 05/29/18 14:53 Exam: Gen.: NAD. AAOx3. Resting comfortably in bed HEENT: Normocephalic, atraumatic, lips cracked Pulmonary: CTAB, equal chest expansion Abdomen: soft, nontender, no guarding, no rebound. Extremities: Legs not wrapped today, swelling improved, no cyanosis or clubbing Neuro: no focal deficits Psych: Appropriate mood and behavior - Assessment and Plan (1) Recurrent UTI (urinary tract infection) Current Visit: Yes Status: Acute Assessment and Plan: History of recurrent UTIs with MDRO, considering possible colonization versus Cultures positive for VRE, proteus, sandro Patient is asymptomatic; denies dysuria, urgency, hesitancy Sanchez catheter with dark urine sediment, parking meter collector in color today Remains afebrile, no leukocytosis ID recommended Meropenum and Daptomycin x 14 days considering MDRO, patient allergies, and sensitivities Nephrology recommending outpatient follow-up Urology not recommending surgical intervention at this time, signed off Continue Meropenum day 7 (stop 06/01) , Daptomycin day 6 (stop 06/06) per ID recs Social work trying to find placement for patient, [facility] unable to take her, referral for [facility] pending. (2) C. difficile colitis Current Visit: Yes Status: Acute Assessment and Plan: Colitis secondary to recurrent C. Diff versus malignancy. Recent abx use and history of C. Diff in December 2017. WBC wnl C. Diff positive on stool occult Abdominal CT 05/17 - mod - severe wall thickening of cecum, ascending colon, and rectum concerning for colitis versus malignancy. Cirrhosis. Continue oral vanc day 9 of 6 week therapy per GI recs Continue Cholestryamine Continue probiotic Follow-up with GI outpatient (3) Proteinuria Current Visit: Yes Status: Acute Assessment and Plan: As above for UTI Nephrology to follow up as outpatient Retroperitoneal ultrasound within normal limits (4) Acute on chronic diastolic heart failure Current Visit: Yes Status: Resolved Assessment and Plan: Resolved, breathing improved LE swelling improving Continue home Lasix PO 20 BID (5) Acute on chronic anemia Current Visit: Yes Status: Acute Assessment and Plan: Chronic. Hgb has remained stable during hospitalization No signs of active bleeding Outpatient follow up with PCP (6) Cirrhosis Current Visit: Yes Status: Chronic Assessment and Plan: Likely VELASQUEZ, no history of drug or alcohol abuse LFTs within normal limits Abdominal CT 05/17 - cirrhosis with unchanged moderate mesenteric edema Patient will need outpatient follow-up with GI (7) Atrial fibrillation Current Visit: Yes Status: Chronic Assessment and Plan: Chronic, rate controlled Continue home meds (8) Diabetes Current Visit: Yes Status: Chronic Assessment and Plan: Blood sugars well controlled while inpatient Hgb A1c 5.3 on 01/29/2018 Continue low dose SSI (9) Coronary artery disease Current Visit: Yes Status: Chronic Assessment and Plan: Continue home meds (10) Pelvic mass Current Visit: Yes Status: Chronic Assessment and Plan: Known to patient Following with PCP Recommended HOTBED OPERATOR follow-up as outpatient (11) Sacral decubitus ulcer, stage II Current Visit: Yes Status: Chronic Assessment and Plan: wound care consulted present on admission (12) Morbid obesity Current Visit: Yes Status: Chronic DVT Prophylaxis: Eliquis - Time Spent with Patient Total time spent is greater than 50% in coordination of care (as documented) at patient's floor/unit and/or counseling patient: Internal Medicine: Result - Labs CBC & Chem 7: 05/28/18 04:00 05/29/18 09:33 Labs: BMP 05/29/18 09:33 Sodium 139 Potassium 3.3 L Chloride 103 Carbon Dioxide 30 H BUN 14 Creatinine 0.61 Glucose 135 H Calcium 8.3 L - ABG Interpretation ABG results: PT/INR, D-dimer PT 35.3 Seconds (9.4-12.1) H 05/22/18 00:56 Consult Discharge Plan - Plan Referrals: Isaac De La Cruz MD [Partnered Physician] - 06/15/18 3:30 pm Nithin Hernandez [Primary Care Provider] - 05/31/18 1:45 pm <Tod Piper - Last Filed: 05/29/18 16:43> Hospitalist Progress Note - Encounter Date of Encounter: 05/29/18 - Exam Vitals: Temp Pulse Resp BP Pulse Ox 98.8 F 88 16 103/55 97 05/29/18 14:53 05/29/18 14:53 05/29/18 14:53 05/29/18 14:53 05/29/18 14:53 - Assessment and Plan (1) DVT prophylaxis Current Visit: Yes Status: Acute (2) Acute on chronic diastolic heart failure Current Visit: Yes Status: Chronic (3) Morbid obesity Current Visit: Yes Status: Chronic (4) Coronary artery disease Current Visit: Yes Status: Chronic (5) Atrial fibrillation Current Visit: Yes Status: Chronic (6) Diabetes Current Visit: Yes Status: Chronic (7) Anemia Current Visit: Yes Status: Suspected (8) Sacral decubitus ulcer, stage II Current Visit: Yes Status: Chronic (9) Debility Current Visit: Yes Status: Acute (10) UTI (urinary tract infection) Current Visit: Yes Status: Acute (11) COPD (chronic obstructive pulmonary disease) Current Visit: Yes Status: Chronic (12) History of CVA (cerebrovascular accident) Current Visit: Yes Status: Acute (13) Cirrhosis Current Visit: Yes Status: Chronic (14) C. difficile colitis Current Visit: Yes Status: Acute (15) Proteinuria Current Visit: Yes Status: Acute - Time Spent with Patient Total time spent is greater than 50% in coordination of care (as documented) at patient's floor/unit and/or counseling patient: Internal Medicine: Result - Labs CBC & Chem 7: 05/28/18 04:00 05/29/18 09:33 Labs: BMP 05/29/18 09:33 Sodium 139 Potassium 3.3 L Chloride 103 Carbon Dioxide 30 H BUN 14 Creatinine 0.61 Glucose 135 H Calcium 8.3 L - ABG Interpretation ABG results: PT/INR, D-dimer PT 35.3 Seconds (9.4-12.1) H 05/22/18 00:56 - Attending Attestation I examined this patient and my medical decision-making was reviewed with the Resident Physician on 05/29/18. I agree with the documented findings, disposition and treatment plan as described except to the extent set forth below. Ms Chico is currently admitted for C diff and UTI. She needs abx till 06/06. She is awaiting SNF placement for IV abx. She remains moderate to high risk due to potential for worsening clinical status. Ms Golden is about the same. No fever or chills. Hematuria seems less. No CP or SOB. Exam alert Comfortable Mucus membranes dry Heart distant Lungs diminished Abd soft Edema overall better I/P 1. C diff 2. UTI Awaiting admit to SNF for IV abx Further diagnoses and plan as above. <Fe Chavez - Last Filed: 05/29/18 16:24> (3) Proteinuria Qualifiers: Proteinuria type: unspecified Qualified Code(s): R80.9 - Proteinuria, unspecified (6) Cirrhosis Qualifiers: Hepatic cirrhosis type: unspecified hepatic cirrhosis Ascites presence: without ascites Qualified Code(s): K74.60 - Unspecified cirrhosis of liver (7) Atrial fibrillation Qualifiers: Atrial fibrillation type: paroxysmal Qualified Code(s): I48.0 - Paroxysmal atrial fibrillation (8) Diabetes Qualifiers: Diabetes mellitus type: type 2 Diabetes mellitus bed bug exterminator insulin use: without retirement use Diabetes mellitus complication status: without complication Qualified Code(s): E11.9 - Type 2 diabetes mellitus without complications (9) Coronary artery disease Qualifiers: Coronary Disease-Associated Artery/Lesion type: [place] artery [place] vs. transplanted heart: [place] heart Associated angina: without angina Qualified Code(s): I25.10 - Atherosclerotic heart disease of [place] coronary artery without angina pectoris <Tod Piper A - Last Filed: 05/29/18 16:43> (4) Coronary artery disease Qualifiers: Coronary Disease-Associated Artery/Lesion type: [place] artery [place] vs. transplanted heart: [place] heart Associated angina: without angina Qualified Code(s): I25.10 - Atherosclerotic heart disease of [place] coronary artery without angina pectoris (5) Atrial fibrillation Qualifiers: Atrial fibrillation type: paroxysmal Qualified Code(s): I48.0 - Paroxysmal atrial fibrillation (6) Diabetes Qualifiers: Diabetes mellitus type: type 2 Diabetes mellitus retirement insulin use: without bed bug exterminator use Diabetes mellitus complication status: without complication Qualified Code(s): E11.9 - Type 2 diabetes mellitus without complications (7) Anemia Qualifiers: Anemia type: iron deficiency Iron deficiency anemia type: chronic blood loss Qualified Code(s): D50.0 - Iron deficiency anemia secondary to blood loss ( chronic) (10) UTI (urinary tract infection) Qualifiers: Urinary tract infection type: acute cystitis Hematuria presence: with hematuria Qualified Code(s): N30.01 - Acute cystitis with hematuria (11) COPD (chronic obstructive pulmonary disease) Qualifiers: COPD type: unspecified COPD Qualified Code(s): J44.9 - Chronic obstructive pulmonary disease, unspecified (13) Cirrhosis Qualifiers: Hepatic cirrhosis type: unspecified hepatic cirrhosis Ascites presence: without ascites Qualified Code(s): K74.60 - Unspecified cirrhosis of liver (15) Proteinuria Qualifiers: Proteinuria type: unspecified Qualified Code(s): R80.9 - Proteinuria, unspecified
[2018-05-29] MEDS: Cholestyramine 4 GM POWD.PACK PO SCH (21:28)
[2018-05-30] MEDS: Meropenem 1,000 MG in Water for inj. (sterile) 20 ML 10 ML IVP SCH ×2 (01:05→08:38)
[2018-05-30] MEDS: Insulin LISPRO 300 UNITS/3 ML VIAL SQ SCH ×5 (04:22→21:30)
[2018-05-30 04:23] LABS: Basophils % 0.5 %; Eosinophils # 0.5 K/mcL (0.0-0.6); Hematocrit 27.1 % (35.3-44.9); Hemoglobin 8.5 g/dL (11.5-15.4); Immature Granulocytes % 0.2 % (0-4); Lymphocytes # 1.6 K/mcL (0.6-4.6); Lymphocytes % 37.1 %; Mean Corpuscular HGB Conc 31.4 g/dL (31.6-35.5); Mean Corpuscular Hemoglobin 26.7 pg (28.0-33.3); Mean Corpuscular Volume 85.2 fL (83.0-100.0); Mean Platelet Volume 10.9 fL (9.4-12.4); Monocytes # 0.4 K/mcL (0.0-1.3); Monocytes % 9.6 %; Neutrophils # 1.8 K/mcL (1.6-8.9); Platelet Count 113 K/mcL (140-400); Red Blood Count 3.18 M/mcL (3.82-4.97); Red Cell Distribution Width 15.6 % (11.5-14.5); Segmented Neutrophils % 41.6 %
[2018-05-30 04:46] LABS: BUN/Creatinine Ratio 32 (6-26); Blood Urea Nitrogen 15 mg/dL (8-23); Calcium 8.4 mg/dL (8.6-10.3); Carbon Dioxide 27 mEq/L (23-29); Chloride 106 mEq/L (98-107); Glucose 116 mg/dL (70-105); Osmolality,Calculated 290 (280-300); Potassium 3.3 mEq/L (3.5-5.1); Sodium 139 mEq/L (136-145); eGFR For Non-African Americans > 60 (> 60)
[2018-05-30] MEDS: Vancomycin Oral Soln 125 MG/2.5 ML UDC PO SCH ×4 (08:37→21:07)
[2018-05-30] MEDS: Lactobacillus 1 EACH CAP.SPRINK PO SCH ×2 (08:37→21:06)
[2018-05-30] MEDS: Apixaban 5 MG TABLET PO SCH ×2 (08:38→21:06)
[2018-05-30] MEDS: Furosemide 20 MG TABLET PO SCH (08:38)
[2018-05-30] MEDS: Aspirin Enteric Coated 81 MG Tablet PO SCH (08:40)
[2018-05-30] MEDS ORDERED: Potassium Chloride Elixir 20 MEQ/15 ML UDC PO ONE (12:05)
[2018-05-30] MEDS: Ondansetron 4 MG/2 ML VIAL IVP PRN (12:53)
--- NOTE | 2018-05-30 14:32 | Internal Med Progress Note ---
<GarettFredicarola - Last Filed: 05/30/18 16:52> Hospitalist Progress Note - Encounter Date of Encounter: 05/30/18 Time of Encounter: 11:30 - Exam Vitals: Temp Pulse Resp BP Pulse Ox 97.8 F 74 15 107/50 98 05/30/18 15:25 05/30/18 15:25 05/30/18 15:25 05/30/18 15:25 05/30/18 15:25 - Assessment and Plan (1) DVT prophylaxis Current Visit: Yes Status: Acute (2) Acute on chronic diastolic heart failure Current Visit: Yes Status: Chronic (3) Morbid obesity Current Visit: Yes Status: Chronic (4) Coronary artery disease Current Visit: Yes Status: Chronic (5) Atrial fibrillation Current Visit: Yes Status: Chronic (6) Diabetes Current Visit: Yes Status: Chronic (7) Anemia Current Visit: Yes Status: Suspected (8) Sacral decubitus ulcer, stage II Current Visit: Yes Status: Chronic (9) Debility Current Visit: Yes Status: Acute (10) UTI (urinary tract infection) Current Visit: Yes Status: Acute (11) COPD (chronic obstructive pulmonary disease) Current Visit: Yes Status: Chronic (12) History of CVA (cerebrovascular accident) Current Visit: Yes Status: Acute (13) Cirrhosis Current Visit: Yes Status: Chronic (14) C. difficile colitis Current Visit: Yes Status: Acute (15) Proteinuria Current Visit: Yes Status: Acute - Time Spent with Patient Total time spent is greater than 50% in coordination of care (as documented) at patient's floor/unit and/or counseling patient: Internal Medicine: Result - Labs CBC & Chem 7: 05/30/18 04:11 05/30/18 04:11 Labs: Short CBC 05/30/18 Range/Units 04:11 WBC 4.3 (4.3-11.1) K/mcL Hgb 8.5 L (11.5-15.4) g/dL Hct 27.1 L (35.3-44.9) % Plt Count 113 L (140-400) K/mcL Neutrophils # 1.8 (1.6-8.9) K/mcL BMP 05/30/18 04:11 Sodium 139 Potassium 3.3 L Chloride 106 Carbon Dioxide 27 BUN 15 Creatinine 0.47 L Glucose 116 H Calcium 8.4 L - ABG Interpretation ABG results: PT/INR, D-dimer PT 35.3 Seconds (9.4-12.1) H 05/22/18 00:56 Consult Discharge Plan - Plan Referrals: Isaac De La Cruz MD [Partnered Physician] - 06/15/18 3:30 pm Nithni Hernandez [Primary Care Provider] - 06/05/18 1:55 pm Prescriptions: Daptomycin [Cubicin Rf] 450 mg IV DAILY #7 vial - Attending Attestation I examined this patient and my medical decision-making was reviewed with the Resident Physician Dr. Chavez. I agree with the documented findings, disposition and treatment plan as described except to the extent set forth below. Ms. Golden is a 68 y/o F with multiple co-morbidities including CHF, COPD, CAD , DVT on Eliquis, h/o C diff colitis, presented to ED for nausea and diarrhea. She happened to have UTI and C. Diff colitis. Pt's urine cx growing Proteus and VRE, so ID recommend Meropenem and Daptomycin. 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 So we did d/c her Meropenem today. Will talk to urology about further recommendations regarding her recurrent UTI. Cont PO vancomycin for C. Diff Gen: A, A< O x3 Chest: Diminished BS b/l heart: S1S2+ RRR <Fe Chavez - Last Filed: 05/30/18 17:48> Hospitalist Progress Note - Encounter Date of Encounter: 05/30/18 - Subjective Interval History: Aixa was seen lying comfortably in bed today. Leg swelling stable. Admits to mild diffuse abdominal pain. Denies chest pain, SOB, nausea, vomitting. Waiting for SNF placement. - Exam Vitals: Temp Pulse Resp BP Pulse Ox 98.2 F 65 16 103/67 94 05/30/18 10:08 05/30/18 10:08 05/30/18 10:08 05/30/18 10:08 05/30/18 10:08 Exam: Gen.: NAD. AAOx3. Resting comfortably in bed HEENT: Normocephalic, atraumatic, lips cracked Pulmonary: CTAB, equal chest expansion Abdomen: soft, nontender, no guarding, no rebound. Skin chaffed and moist within skin folds of lower abdomen and groin. Extremities: Legs not wrapped today, swelling improved, no cyanosis or clubbing Neuro: no focal deficits Psych: Appropriate mood and behavior - Assessment and Plan (1) Recurrent UTI (urinary tract infection) Current Visit: Yes Status: Acute Assessment and Plan: History of recurrent UTIs with MDRO, considering possible colonization versus Cultures positive for VRE, proteus, sandro Patient is asymptomatic; denies dysuria, urgency, hesitancy Sanchez catheter with dark urine sediment Remains afebrile, no leukocytosis Nephrology recommending outpatient follow-up Urology not recommending surgical intervention at this time, signed off Discontinue Meropenum day 8 Continue Daptomycin day 7 (stop 06/06) per ID recs Social work trying to find placement for patient, [facility], [facility] pending. (2) C. difficile colitis Current Visit: Yes Status: Acute Assessment and Plan: Colitis secondary to recurrent C. Diff versus malignancy. Recent abx use and history of C. Diff in December 2017. WBC wnl C. Diff positive on stool occult Abdominal CT 05/17 - mod - severe wall thickening of cecum, ascending colon, and rectum concerning for colitis versus malignancy. Cirrhosis. Continue oral vanc day 10 of 6 week therapy per GI recs Continue Cholestryamine Continue probiotic Follow-up with GI outpatient (3) Proteinuria Current Visit: Yes Status: Acute Assessment and Plan: As above for UTI Nephrology to follow up as outpatient Retroperitoneal ultrasound within normal limits (4) Acute on chronic diastolic heart failure Current Visit: Yes Status: Resolved Assessment and Plan: Resolved, breathing improved LE swelling improving Continue home Lasix PO 20 BID (5) Acute on chronic anemia Current Visit: Yes Status: Acute Assessment and Plan: Chronic. Hgb has remained stable during hospitalization No signs of active bleeding Outpatient follow up with PCP (6) Cirrhosis Current Visit: Yes Status: Chronic Assessment and Plan: Likely VELASQUEZ, no history of drug or alcohol abuse LFTs within normal limits Abdominal CT 05/17 - cirrhosis with unchanged moderate mesenteric edema Patient will need outpatient follow-up with GI (7) Atrial fibrillation Current Visit: Yes Status: Chronic Assessment and Plan: Chronic, rate controlled Continue home meds (8) Diabetes Current Visit: Yes Status: Chronic Assessment and Plan: Blood sugars well controlled while inpatient Hgb A1c 5.3 on 01/29/2018 Continue low dose SSI (9) Coronary artery disease Current Visit: Yes Status: Chronic Assessment and Plan: Continue home meds (10) Pelvic mass Current Visit: Yes Status: Chronic Assessment and Plan: Known to patient Following with PCP 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 (11) Sacral decubitus ulcer, stage II Current Visit: Yes Status: Chronic Assessment and Plan: wound care consulted present on admission (12) Morbid obesity Current Visit: Yes Status: Chronic DVT Prophylaxis: Eliquis - Time Spent with Patient Total time spent is greater than 50% in coordination of care (as documented) at patient's floor/unit and/or counseling patient: Internal Medicine: Result - Labs CBC & Chem 7: 05/30/18 04:11 05/30/18 04:11 Labs: Short CBC 05/30/18 Range/Units 04:11 WBC 4.3 (4.3-11.1) K/mcL Hgb 8.5 L (11.5-15.4) g/dL Hct 27.1 L (35.3-44.9) % Plt Count 113 L (140-400) K/mcL Neutrophils # 1.8 (1.6-8.9) K/mcL BMP 05/30/18 04:11 Sodium 139 Potassium 3.3 L Chloride 106 Carbon Dioxide 27 BUN 15 Creatinine 0.47 L Glucose 116 H Calcium 8.4 L - ABG Interpretation ABG results: PT/INR, D-dimer PT 35.3 Seconds (9.4-12.1) H 05/22/18 00:56 <Latesha Bajwa - Last Filed: 05/30/18 16:52> (4) Coronary artery disease Qualifiers: Coronary Disease-Associated Artery/Lesion type: [place] artery [place] vs. transplanted heart: [place] heart Associated angina: without angina Qualified Code(s): I25.10 - Atherosclerotic heart disease of [place] coronary artery without angina pectoris (5) Atrial fibrillation Qualifiers: Atrial fibrillation type: paroxysmal Qualified Code(s): I48.0 - Paroxysmal atrial fibrillation (6) Diabetes Qualifiers: Diabetes mellitus type: type 2 Diabetes mellitus longterm insulin use: without longterm use Diabetes mellitus complication status: without complication Qualified Code(s): E11.9 - Type 2 diabetes mellitus without complications (7) Anemia Qualifiers: Anemia type: iron deficiency Iron deficiency anemia type: chronic blood loss Qualified Code(s): D50.0 - Iron deficiency anemia secondary to blood loss ( chronic) (10) UTI (urinary tract infection) Qualifiers: Urinary tract infection type: acute cystitis Hematuria presence: with hematuria Qualified Code(s): N30.01 - Acute cystitis with hematuria (11) COPD (chronic obstructive pulmonary disease) Qualifiers: COPD type: unspecified COPD Qualified Code(s): J44.9 - Chronic obstructive pulmonary disease, unspecified (13) Cirrhosis Qualifiers: Hepatic cirrhosis type: unspecified hepatic cirrhosis Ascites presence: without ascites Qualified Code(s): K74.60 - Unspecified cirrhosis of liver (15) Proteinuria Qualifiers: Proteinuria type: unspecified Qualified Code(s): R80.9 - Proteinuria, unspecified <Fe Chavez C - Last Filed: 05/30/18 17:48> (3) Proteinuria Qualifiers: Proteinuria type: unspecified Qualified Code(s): R80.9 - Proteinuria, unspecified (6) Cirrhosis Qualifiers: Hepatic cirrhosis type: unspecified hepatic cirrhosis Ascites presence: without ascites Qualified Code(s): K74.60 - Unspecified cirrhosis of liver (7) Atrial fibrillation Qualifiers: Atrial fibrillation type: paroxysmal Qualified Code(s): I48.0 - Paroxysmal atrial fibrillation (8) Diabetes Qualifiers: Diabetes mellitus type: type 2 Diabetes mellitus terminal manager insulin use: without longterm use Diabetes mellitus complication status: with unspecified complications Qualified Code(s): E11.8 - Type 2 diabetes mellitus with unspecified complications (9) Coronary artery disease Qualifiers: Coronary Disease-Associated Artery/Lesion type: [place] artery [place] vs. transplanted heart: [place] heart Associated angina: without angina Qualified Code(s): I25.10 - Atherosclerotic heart disease of [place] coronary artery without angina pectoris
[2018-05-30] MEDS: Nystatin POWDER 30 GM BOTTLE TP SCH ×2 (15:00→21:08)
[2018-05-30] MEDS: DAPTOmycin 450 MG in 0.9 % Sodium Chloride 100 ML IVPB SCH (18:01)
[2018-05-30] MEDS: Cholestyramine 4 GM POWD.PACK PO SCH (20:42)
[2018-05-31] MEDS: Apixaban 5 MG TABLET PO SCH ×2 (08:16→21:22)
[2018-05-31] MEDS: Lactobacillus 1 EACH CAP.SPRINK PO SCH ×2 (08:16→21:22)
[2018-05-31] MEDS: Furosemide 20 MG TABLET PO SCH (08:16)
[2018-05-31] MEDS: Aspirin Enteric Coated 81 MG Tablet PO SCH (08:16)
[2018-05-31] MEDS: Vancomycin Oral Soln 125 MG/2.5 ML UDC PO SCH ×4 (08:17→21:42)
[2018-05-31] MEDS: Nystatin POWDER 30 GM BOTTLE TP SCH ×2 (08:18→21:24)
[2018-05-31] MEDS: Insulin LISPRO 300 UNITS/3 ML VIAL SQ SCH ×4 (08:18→21:26)
--- NOTE | 2018-05-31 10:38 | Internal Med Progress Note ---
Hospitalist Progress Note - Encounter Date of Encounter: 05/31/18 Time of Encounter: 10:34 - Subjective Interval History: Ms. Golden is a 68 y/o F with multiple co-morbidities including CHF, COPD, CAD , DVT on Eliquis, h/o C diff colitis, presented to ED for nausea and diarrhea. She happened to have UTI and C. Diff colitis. Pt's urine cx growing Proteus and VRE, so ID recommend Meropenem and Daptomycin. 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 So we did d/c her Meropenem on 05/30/18. Pt states she is feeling better today. Denied any CP / SOB. Still have some mucus type stools. However no diarrhea. - Exam Vitals: Temp Pulse Resp BP Pulse Ox 97.9 F 83 15 138/73 91 05/31/18 06:45 05/31/18 06:45 05/31/18 06:45 05/31/18 06:45 05/31/18 06:45 Exam: Gen.: NAD. AAOx3. Resting comfortably in bed HEENT: Normocephalic, atraumatic, lips cracked Pulmonary: Diminished BS b/l, no crackles, no wheezing, no rales Abdomen: soft, non tender, no guarding, no rebound. Extremities: swelling improved, no cyanosis or clubbing, trace edema. No erythema Neuro: no focal deficits Psych: Appropriate mood and behavior - Assessment and Plan (1) UTI (urinary tract infection) Current Visit: Yes Status: Acute Assessment and Plan: Urine cx - Proteus and VRE Proteus seems to be colonized d/c meropenem y/d Cont Dapto for VRE Will check with ID about duration of Dapto Talked to urology about further work up regarding recurrent UTI. No intervention suggested now, recommend to f/u with them as an out pt (2) C. 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 continue Vanc 125 QID x 14 days then BID x 7 days then Daily x 7 days, then every other day x 2 weeks (3) Acute on chronic diastolic heart failure Current Visit: Yes Status: Chronic Assessment and Plan: not in exacerbation Cont PO lasix, + BB + ASA + Statin (4) Morbid obesity Current Visit: Yes Status: Chronic Assessment and Plan: a (5) Coronary artery disease Current Visit: Yes Status: Chronic Assessment and Plan: continue home meds (6) Atrial fibrillation Current Visit: Yes Status: Chronic Assessment and Plan: Rate controlled with Metoprolol on Eliquis for anti coag (7) Diabetes Current Visit: Yes Status: Chronic Assessment and Plan: stable blood sugars continue current regimen (8) Anemia Current Visit: Yes Status: Suspected Assessment and Plan: Remains at baseline at this time. H/H stable at 8.5 no further work up needed (9) Sacral decubitus ulcer, stage II Current Visit: Yes Status: Chronic Assessment and Plan: Present on admission continue local wound care (10) Debility Current Visit: Yes Status: Acute Assessment and Plan: PT/OT eval may need ECF placement .. SW / CM working on it (11) COPD (chronic obstructive pulmonary disease) Current Visit: Yes Status: Chronic Assessment and Plan: Not in acute exacerbation. Continue home medications (12) History of CVA (cerebrovascular accident) Current Visit: Yes Status: Acute Assessment and Plan: Currently on Eliquis and aspirin. (13) Cirrhosis Current Visit: Yes Status: Chronic Assessment and Plan: Likely 2/[address] abdomen/pelvis 05/17 showed findings suggestive of cirrhosis (14) Proteinuria Current Visit: Yes Status: Acute Assessment and Plan: - As above for UTI - Nephrology has been consulted and will follow as outpatient, no acute issues - Retroperitoneal ultrasound within normal limits (15) DVT prophylaxis Current Visit: Yes Status: Acute Assessment and Plan: On Eliquis as above - Time Spent with Patient Total time spent is greater than 50% in coordination of care (as documented) at patient's floor/unit and/or counseling patient: Internal Medicine: Result - Labs CBC & Chem 7: 05/30/18 04:11 05/30/18 04:11 - ABG Interpretation ABG results: PT/INR, D-dimer PT 35.3 Seconds (9.4-12.1) H 05/22/18 00:56 Consult Discharge Plan - Plan Referrals: Isaac De La Cruz MD [Partnered Physician] - 06/15/18 3:30 pm Nithin Hernandez [Primary Care Provider] - 06/05/18 1:55 pm Prescriptions: Daptomycin [Cubicin Rf] 450 mg IV DAILY #7 vial (1) UTI (urinary tract infection) Qualifiers: Urinary tract infection type: acute cystitis Hematuria presence: with hematuria Qualified Code(s): N30.01 - Acute cystitis with hematuria (5) Coronary artery disease Qualifiers: Coronary Disease-Associated Artery/Lesion type: [place] artery [place] vs. transplanted heart: [place] heart Associated angina: without angina Qualified Code(s): I25.10 - Atherosclerotic heart disease of [place] coronary artery without angina pectoris (6) Atrial fibrillation Qualifiers: Atrial fibrillation type: paroxysmal Qualified Code(s): I48.0 - Paroxysmal atrial fibrillation (7) Diabetes Qualifiers: Diabetes mellitus type: type 2 Diabetes mellitus tdp displays analyst insulin use: without retirement use Diabetes mellitus complication status: with unspecified complications Qualified Code(s): E11.8 - Type 2 diabetes mellitus with unspecified complications (8) Anemia Qualifiers: Anemia type: iron deficiency Iron deficiency anemia type: chronic blood loss Qualified Code(s): D50.0 - Iron deficiency anemia secondary to blood loss ( chronic) (11) COPD (chronic obstructive pulmonary disease) Qualifiers: COPD type: unspecified COPD Qualified Code(s): J44.9 - Chronic obstructive pulmonary disease, unspecified (13) Cirrhosis Qualifiers: Hepatic cirrhosis type: unspecified hepatic cirrhosis Ascites presence: without ascites Qualified Code(s): K74.60 - Unspecified cirrhosis of liver (14) Proteinuria Qualifiers: Proteinuria type: unspecified Qualified Code(s): R80.9 - Proteinuria, unspecified
[2018-05-31] MEDS: DAPTOmycin 450 MG in 0.9 % Sodium Chloride 100 ML IVPB SCH (18:57)
[2018-05-31] MEDS: Cholestyramine 4 GM POWD.PACK PO SCH (21:22)
[2018-06-01] MEDS: Insulin LISPRO 300 UNITS/3 ML VIAL SQ SCH ×4 (12:00→21:19)
[2018-06-01] MEDS: Lactobacillus 1 EACH CAP.SPRINK PO SCH ×2 (12:01→21:19)
[2018-06-01] MEDS: Apixaban 5 MG TABLET PO SCH ×2 (12:01→21:18)
[2018-06-01] MEDS: Aspirin Enteric Coated 81 MG Tablet PO SCH (12:01)
[2018-06-01] MEDS: Furosemide 20 MG TABLET PO SCH (12:02)
[2018-06-01] MEDS: Vancomycin Oral Soln 125 MG/2.5 ML UDC PO SCH ×4 (12:02→21:19)
[2018-06-01] MEDS: Nystatin POWDER 30 GM BOTTLE TP SCH ×2 (12:02→21:19)
--- NOTE | 2018-06-01 12:03 | Internal Med Progress Note ---
Hospitalist Progress Note - Encounter Date of Encounter: 06/01/18 Time of Encounter: 11:00 - Subjective Interval History: Ms. Golden is a 68 y/o F with multiple co-morbidities including CHF, COPD, CAD, DVT on Eliquis, h/o C diff colitis, presented to ED for nausea and diarrhea. She happened to have UTI and C. Diff colitis. Pt's urine cx growing Proteus and VRE, so ID recommend Meropenem and Daptomycin. 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 So we did d/c her Meropenem on 05/30/18. Pt states she is feeling better today. Denied any CP / SOB. No more diarrhea. Started having more formed stools now. - Exam Vitals: Temp Pulse Resp BP Pulse Ox 98.6 F 73 17 99/64 96 05/31/18 20:11 05/31/18 20:11 05/31/18 20:11 05/31/18 20:11 05/31/18 21:49 Exam: Gen.: NAD. AAOx3. Resting comfortably in bed HEENT: Normocephalic, atraumatic, lips cracked Pulmonary: Diminished BS b/l, no crackles, no wheezing, no rales Abdomen: soft, non tender, no guarding, no rebound. Extremities: swelling improved, no cyanosis or clubbing, trace edema. No erythema Neuro: no focal deficits Psych: Appropriate mood and behavior - Assessment and Plan (1) UTI (urinary tract infection) Current Visit: Yes Status: Acute Assessment and Plan: Urine cx - Proteus and VRE Proteus seems to be colonized Cont Dapto for VRE Will check with ID about duration of Dapto Talked to urology about further work up regarding recurrent UTI. No intervention suggested now, recommend to f/u with them as an out pt (2) C. 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 continue Vanc 125 QID x 14 days then BID x 7 days then Daily x 7 days, then every other day x 2 weeks (3) Acute on chronic diastolic heart failure Current Visit: Yes Status: Chronic Assessment and Plan: not in exacerbation Cont PO lasix, + BB + ASA + Statin (4) Morbid obesity Current Visit: Yes Status: Chronic Assessment and Plan: a (5) Coronary artery disease Current Visit: Yes Status: Chronic Assessment and Plan: continue home meds (6) Atrial fibrillation Current Visit: Yes Status: Chronic Assessment and Plan: Rate controlled with Metoprolol on Eliquis for anti coag (7) Diabetes Current Visit: Yes Status: Chronic Assessment and Plan: stable blood sugars continue current regimen (8) Anemia Current Visit: Yes Status: Suspected Assessment and Plan: Remains at baseline at this time. H/H stable at 8.5 no further work up needed (9) Sacral decubitus ulcer, stage II Current Visit: Yes Status: Chronic Assessment and Plan: Present on admission continue local wound care (10) Debility Current Visit: Yes Status: Acute Assessment and Plan: PT/OT eval may need ECF placement .. SW / CM working on it (11) COPD (chronic obstructive pulmonary disease) Current Visit: Yes Status: Chronic Assessment and Plan: Not in acute exacerbation. Continue home medications (12) History of CVA (cerebrovascular accident) Current Visit: Yes Status: Acute Assessment and Plan: Currently on Eliquis and aspirin. (13) Cirrhosis Current Visit: Yes Status: Chronic Assessment and Plan: Likely 2/[address] abdomen/pelvis 05/17 showed findings suggestive of cirrhosis (14) Proteinuria Current Visit: Yes Status: Acute Assessment and Plan: - As above for UTI - Nephrology has been consulted and will follow as outpatient, no acute issues - Retroperitoneal ultrasound within normal limits (15) DVT prophylaxis Current Visit: Yes Status: Acute Assessment and Plan: On Eliquis as above - Time Spent with Patient Total time spent is greater than 50% in coordination of care (as documented) at patient's floor/unit and/or counseling patient: Internal Medicine: Result - Labs CBC & Chem 7: 05/30/18 04:11 05/30/18 04:11 - ABG Interpretation ABG results: PT/INR, D-dimer PT 35.3 Seconds (9.4-12.1) H 05/22/18 00:56 Consult Discharge Plan - Plan Referrals: Isaac De La Cruz MD [Partnered Physician] - 06/15/18 3:30 pm Nithin Hernandez [Primary Care Provider] - 06/05/18 1:55 pm Prescriptions: Daptomycin [Cubicin Rf] 450 mg IV DAILY #7 vial (1) UTI (urinary tract infection) Qualifiers: Urinary tract infection type: acute cystitis Hematuria presence: with hematuria Qualified Code(s): N30.01 - Acute cystitis with hematuria (5) Coronary artery disease Qualifiers: Coronary Disease-Associated Artery/Lesion type: [place] artery [place] vs. transplanted heart: [place] heart Associated angina: without angina Qualified Code(s): I25.10 - Atherosclerotic heart disease of [place] coronary artery without angina pectoris (6) Atrial fibrillation Qualifiers: Atrial fibrillation type: paroxysmal Qualified Code(s): I48.0 - Paroxysmal atrial fibrillation (7) Diabetes Qualifiers: Diabetes mellitus type: type 2 Diabetes mellitus termite exterminator insulin use: without termite exterminator use Diabetes mellitus complication status: with unspecified complications Qualified Code(s): E11.8 - Type 2 diabetes mellitus with unspecified complications (8) Anemia Qualifiers: Anemia type: iron deficiency Iron deficiency anemia type: chronic blood loss Qualified Code(s): D50.0 - Iron deficiency anemia secondary to blood loss (chronic) (11) COPD (chronic obstructive pulmonary disease) Qualifiers: COPD type: unspecified COPD Qualified Code(s): J44.9 - Chronic obstructive pulmonary disease, unspecified (13) Cirrhosis Qualifiers: Hepatic cirrhosis type: unspecified hepatic cirrhosis Ascites presence: without ascites Qualified Code(s): K74.60 - Unspecified cirrhosis of liver (14) Proteinuria Qualifiers: Proteinuria type: unspecified Qualified Code(s): R80.9 - Proteinuria, unspecified
[2018-06-01] MEDS ORDERED: Lactobacillus 1 EACH CAP.SPRINK PO ONE (14:19)
[2018-06-01] MEDS ORDERED: Apixaban 5 MG TABLET PO ONE (14:19)
[2018-06-01] MEDS ORDERED: Furosemide 20 MG TABLET PO ONE (14:19)
[2018-06-01] MEDS ORDERED: Vancomycin Oral Soln 125 MG/2.5 ML UDC PO ONE (14:19)
[2018-06-01] MEDS ORDERED: Aspirin Enteric Coated 81 MG Tablet PO ONE (14:19)
[2018-06-01] MEDS: DAPTOmycin 450 MG in 0.9 % Sodium Chloride 100 ML IVPB SCH (17:33)
[2018-06-01] MEDS: Cholestyramine 4 GM POWD.PACK PO SCH ×2 (21:19→23:09)
[2018-06-01] MEDS: Ondansetron 4 MG/2 ML VIAL IVP PRN (23:15)
[2018-06-02 04:37] LABS: Basophils % 0.6 %; Eosinophils # 0.6 K/mcL (0.0-0.6); Eosinophils % 10.5 %; Hematocrit 26.4 % (35.3-44.9); Hemoglobin 8.3 g/dL (11.5-15.4); Immature Granulocytes % 0.2 % (0-4); Lymphocytes # 1.6 K/mcL (0.6-4.6); Lymphocytes % 29.7 %; Mean Corpuscular HGB Conc 31.4 g/dL (31.6-35.5); Mean Corpuscular Hemoglobin 27.1 pg (28.0-33.3); Mean Corpuscular Volume 86.3 fL (83.0-100.0); Mean Platelet Volume 11.2 fL (9.4-12.4); Monocytes # 0.4 K/mcL (0.0-1.3); Monocytes % 6.7 %; Neutrophils # 2.8 K/mcL (1.6-8.9); Platelet Count 117 K/mcL (140-400); Red Blood Count 3.06 M/mcL (3.82-4.97); Red Cell Distribution Width 15.5 % (11.5-14.5); Segmented Neutrophils % 52.3 %
[2018-06-02 04:56] LABS: BUN/Creatinine Ratio 29 (6-26); Blood Urea Nitrogen 16 mg/dL (8-23); Calcium 8.3 mg/dL (8.6-10.3); Carbon Dioxide 29 mEq/L (23-29); Chloride 107 mEq/L (98-107); Glucose 146 mg/dL (70-105); Osmolality,Calculated 294 (280-300); Potassium 3.6 mEq/L (3.5-5.1); Sodium 140 mEq/L (136-145); eGFR For Non-African Americans > 60 (> 60)
[2018-06-02] MEDS: Lactobacillus 1 EACH CAP.SPRINK PO SCH ×2 (08:07→22:12)
[2018-06-02] MEDS: Vancomycin Oral Soln 125 MG/2.5 ML UDC PO SCH ×4 (08:08→22:12)
[2018-06-02] MEDS: Furosemide 20 MG TABLET PO SCH (08:08)
[2018-06-02] MEDS: Apixaban 5 MG TABLET PO SCH ×2 (08:08→22:12)
[2018-06-02] MEDS: Aspirin Enteric Coated 81 MG Tablet PO SCH (08:08)
[2018-06-02] MEDS: Insulin LISPRO 300 UNITS/3 ML VIAL SQ SCH ×4 (08:08→22:11)
[2018-06-02] MEDS: Nystatin POWDER 30 GM BOTTLE TP SCH ×2 (11:26→22:12)
--- NOTE | 2018-06-02 15:01 | Internal Med Progress Note ---
Hospitalist Progress Note - Encounter Date of Encounter: 06/02/18 Time of Encounter: 13:45 - Subjective Interval History: Ms. Golden is a 68 y/o F with multiple co-morbidities including CHF, COPD, CAD, DVT on Eliquis, h/o C diff colitis, presented to ED for nausea and diarrhea. She happened to have UTI and C. Diff colitis. Pt's urine cx growing Proteus and VRE, so ID recommend Meropenem and Daptomycin. 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 So we did d/c her Meropenem on 05/30/18. Pt states she is feeling better today. Denied any CP / SOB. No more diarrhea. Started having more formed stools now. - Exam Vitals: Temp Pulse Resp BP Pulse Ox 98.8 F 68 16 117/76 95 06/02/18 11:07 06/02/18 11:07 06/02/18 11:07 06/02/18 11:07 06/02/18 11:07 Exam: Gen.: NAD. AAOx3. Resting comfortably in bed HEENT: Normocephalic, atraumatic, lips cracked Pulmonary: Diminished BS b/l, no crackles, no wheezing, no rales Abdomen: soft, non tender, no guarding, no rebound. Extremities: swelling improved, no cyanosis or clubbing, trace edema. No erythema Neuro: no focal deficits Psych: Appropriate mood and behavior - Assessment and Plan (1) UTI (urinary tract infection) Current Visit: Yes Status: Acute Assessment and Plan: Urine cx - Proteus and VRE Proteus seems to be colonized Cont Dapto for VRE Will cont Dapto total for 10 days Talked to urology about further work up regarding recurrent UTI. No intervention suggested now, recommend to f/u with them as an out pt (2) C. 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 continue Vanc 125 QID x 14 days then BID x 7 days then Daily x 7 days, then every other day x 2 weeks (3) Acute on chronic diastolic heart failure Current Visit: Yes Status: Chronic Assessment and Plan: not in exacerbation Cont PO lasix, + BB + ASA + Statin (4) Morbid obesity Current Visit: Yes Status: Chronic Assessment and Plan: a (5) Coronary artery disease Current Visit: Yes Status: Chronic Assessment and Plan: continue home meds (6) Atrial fibrillation Current Visit: Yes Status: Chronic Assessment and Plan: Rate controlled with Metoprolol on Eliquis for anti coag (7) Diabetes Current Visit: Yes Status: Chronic Assessment and Plan: stable blood sugars continue current regimen (8) Anemia Current Visit: Yes Status: Suspected Assessment and Plan: Remains at baseline at this time. H/H stable at 8.3 no further work up needed (9) Sacral decubitus ulcer, stage II Current Visit: Yes Status: Chronic Assessment and Plan: Present on admission continue local wound care (10) Debility Current Visit: Yes Status: Acute Assessment and Plan: PT/OT eval Will set up for home health , home PT / OT in AM Possible d/c home in AM (11) COPD (chronic obstructive pulmonary disease) Current Visit: Yes Status: Chronic Assessment and Plan: Not in acute exacerbation. Continue home medications (12) History of CVA (cerebrovascular accident) Current Visit: Yes Status: Acute Assessment and Plan: Currently on Eliquis and aspirin. (13) Cirrhosis Current Visit: Yes Status: Chronic Assessment and Plan: Likely 2/[address] abdomen/pelvis 05/17 showed findings suggestive of cirrhosis (14) Proteinuria Current Visit: Yes Status: Acute Assessment and Plan: - As above for UTI - Nephrology has been consulted and will follow as outpatient, no acute issues - Retroperitoneal ultrasound within normal limits (15) DVT prophylaxis Current Visit: Yes Status: Acute Assessment and Plan: On Eliquis as above - Time Spent with Patient Total time spent is greater than 50% in coordination of care (as documented) at patient's floor/unit and/or counseling patient: Internal Medicine: Result - Labs CBC & Chem 7: 06/02/18 Unknown 06/02/18 Unknown Labs: Short CBC 06/02/18 Range/Units Unknown WBC 5.3 (4.3-11.1) K/mcL Hgb 8.3 L (11.5-15.4) g/dL Hct 26.4 L (35.3-44.9) % Plt Count 117 L (140-400) K/mcL Neutrophils # 2.8 (1.6-8.9) K/mcL BMP 06/02/18 Unknown Sodium 140 Potassium 3.6 Chloride 107 Carbon Dioxide 29 BUN 16 Creatinine 0.55 L Glucose 146 H Calcium 8.3 L - ABG Interpretation ABG results: PT/INR, D-dimer PT 35.3 Seconds (9.4-12.1) H 05/22/18 00:56 Consult Discharge Plan - Plan Referrals: Isaac De La Cruz MD [Partnered Physician] - 06/15/18 3:30 pm Nithin Hernandez [Primary Care Provider] - 06/05/18 1:55 pm Prescriptions: Daptomycin [Cubicin Rf] 450 mg IV DAILY #7 vial ____ (1) UTI (urinary tract infection) Qualifiers: Urinary tract infection type: acute cystitis Hematuria presence: with hematuria Qualified Code(s): N30.01 - Acute cystitis with hematuria (5) Coronary artery disease Qualifiers: Coronary Disease-Associated Artery/Lesion type: [place] artery [place] vs. transplanted heart: [place] heart Associated angina: without angina Qualified Code(s): I25.10 - Atherosclerotic heart disease of [place] coronary artery without angina pectoris (6) Atrial fibrillation Qualifiers: Atrial fibrillation type: paroxysmal Qualified Code(s): I48.0 - Paroxysmal atrial fibrillation (7) Diabetes Qualifiers: Diabetes mellitus type: type 2 Diabetes mellitus chcf insulin use: without intermediate accountant use Diabetes mellitus complication status: with unspecified complications Qualified Code(s): E11.8 - Type 2 diabetes mellitus with unspecified complications (8) Anemia Qualifiers: Anemia type: iron deficiency Iron deficiency anemia type: chronic blood loss Qualified Code(s): D50.0 - Iron deficiency anemia secondary to blood loss (chronic) (11) COPD (chronic obstructive pulmonary disease) Qualifiers: COPD type: unspecified COPD Qualified Code(s): J44.9 - Chronic obstructive pulmonary disease, unspecified (13) Cirrhosis Qualifiers: Hepatic cirrhosis type: unspecified hepatic cirrhosis Ascites presence: without ascites Qualified Code(s): K74.60 - Unspecified cirrhosis of liver (14) Proteinuria Qualifiers: Proteinuria type: unspecified Qualified Code(s): R80.9 - Proteinuria, unspecified
[2018-06-02] MEDS: DAPTOmycin 450 MG in 0.9 % Sodium Chloride 100 ML IVPB SCH (18:23)
[2018-06-02] MEDS: Cholestyramine 4 GM POWD.PACK PO SCH (22:11)
[2018-06-03] MEDS: Insulin LISPRO 300 UNITS/3 ML VIAL SQ SCH ×2 (07:51→12:24)
[2018-06-03] MEDS: Apixaban 5 MG TABLET PO SCH (09:17)
[2018-06-03] MEDS: Nystatin POWDER 30 GM BOTTLE TP SCH (09:17)
[2018-06-03] MEDS: Furosemide 20 MG TABLET PO SCH (09:17)
[2018-06-03] MEDS: Aspirin Enteric Coated 81 MG Tablet PO SCH (09:17)
[2018-06-03] MEDS: Vancomycin Oral Soln 125 MG/2.5 ML UDC PO SCH ×2 (09:17→12:25)
[2018-06-03] MEDS: Lactobacillus 1 EACH CAP.SPRINK PO SCH (09:17)
[2018-06-03 10:42] VITALS: BP 112/62
--- NOTE | 2018-06-03 12:22 | Discharge Summary ---
- NOTES TO OUTPATIENT PROVIDER Notes to Outpatient Provider: f/u with PCP in one week. f/u with Urology Dr. Sandra/ Dr. Bee in 1-2 weeks. Cont PO Vancomycin for 4 more weeks as directed Date of Encounter: 06/03/18 Time of Encounter: 12:00 - Discharge Diagnosis (1) UTI (urinary tract infection) Priority: Primary Status: Acute Qualifiers: Urinary tract infection type: acute cystitis Hematuria presence: with hematuria Qualified Code(s): N30.01 - Acute cystitis with hematuria (2) C. difficile colitis Priority: Primary Status: Acute (3) Acute on chronic diastolic heart failure Priority: Secondary Status: Chronic (4) Morbid obesity Priority: Secondary Status: Chronic (5) Coronary artery disease Priority: Secondary Status: Chronic Qualifiers: Coronary Disease-Associated Artery/Lesion type: [place] artery [place] vs. 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: without dedicated intermodal truck driver use Diabetes mellitus complication status: with unspecified complications Qualified Code(s): E11.8 - Type 2 diabetes mellitus with unspecified complications (8) Anemia Priority: Secondary Status: Suspected Qualifiers: Anemia type: iron deficiency Iron deficiency anemia type: chronic blood loss Qualified Code(s): D50.0 - Iron deficiency anemia secondary to blood loss (chronic) (9) Sacral decubitus ulcer, stage II Priority: Secondary Status: Chronic (10) Debility Priority: Secondary Status: Acute (11) COPD (chronic obstructive pulmonary disease) Priority: Secondary Status: Chronic Qualifiers: COPD type: unspecified COPD Qualified Code(s): J44.9 - Chronic obstructive pulmonary disease, unspecified (12) History of CVA (cerebrovascular accident) Priority: Secondary Status: Acute (13) Cirrhosis Priority: Secondary Status: Chronic Qualifiers: Hepatic cirrhosis type: unspecified hepatic cirrhosis Ascites presence: without ascites Qualified Code(s): K74.60 - Unspecified cirrhosis of liver (14) Proteinuria Priority: Secondary Status: Acute Qualifiers: Proteinuria type: unspecified Qualified Code(s): R80.9 - Proteinuria, unspecified (15) DVT prophylaxis Priority: Secondary Status: Acute Hospital course: Ms. Golden is a 68 y/o F with multiple co-morbidities including CHF, COPD, CAD, DVT on Eliquis, h/o C diff colitis, presented to ED for nausea and diarrhea. She happened to have UTI and C. Diff colitis. Pt's urine cx growing Proteus and VRE, so ID recommend Meropenem and Daptomycin. 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 So we did d/c her Meropenem on 05/30/18 and continued Daptomycin for 10 days. Her symptoms improved now. Her diarrhea resolved. Due to her recurrent C. Diff infection , we recommend the pt to finish 6 weeks of tapering PO vancomycin. Pt states she is feeling better today. Denied any CP / SOB.Started having more formed stools now. So will d/c her home in stable condition today with home health services. - Time Spent with Patient Total time spent providing and/or coordinating discharge services: - Discharge Medications Prescriptions: DiphenhydraMINE [Benadryl] 25 mg PO Q8HR PRN #20 capsule PRN Reason: Itching Lactobacillus [Culturelle] 1 each PO BID #60 cap.sprink Home Medications: Aspirin Enteric Coated [Aspirin EC] 81 mg PO DAILY 04/27/18 [History] Metoprolol [Lopressor] 12.5 mg PO BID 04/27/18 [History] Apixaban [Eliquis] 5 mg PO BID #60 tablet 05/04/18 [Rx] Furosemide [Lasix] 20 mg PO BID 05/17/18 [History] HYDROcodone/Acet 10/325 mg [[place] 10-325 mg] 1 tab PO BID PRN 05/17/18 [History] Fluticasone Propionate Nasal [Flonase] 50 mcg NS DAILY 05/22/18 [History] DiphenhydraMINE [Benadryl] 25 mg PO Q8HR PRN #20 capsule 06/03/18 [Rx] Lactobacillus [Culturelle] 1 each PO BID #60 cap.sprink 06/03/18 [Rx] Nystatin POWDER [Nystop] 1 appl TP BID bottle 06/03/18 [Rx] Allergies/Adverse Reactions: Allergy/AdvReac Type Severity Reaction Status Date / Time shellfish derived Allergy Severe Anaphylaxis Verified 05/17/18 12:47 levofloxacin [From Levaquin] Allergy Hives Verified 05/17/18 12:47 Penicillins Allergy Blister Verified 05/17/18 12:47 prednisone Allergy See Verified 05/17/18 12:47 Comments Sulfa (Sulfonamide Allergy Hives Verified 05/17/18 12:47 Antibiotics) egg AdvReac Severe Throat Verified 05/17/18 12:47 swelling nitrofurantoin AdvReac Severe Bruising Verified 05/17/18 12:47 [From Macrobid] on arms Date of admission: 05/21/18 15:30 Primary care physician: Nithin Hernandez Consults: 05/17/18 17:43 Consult to Occupational Therapy [CONS] Routine Comment: Evaluate, develop and implement POC Reason for Consult: Evaluate, develop and implement POC Does patient have active BEDREST order?: No Is patient medically & hemodynamically stable?: Yes Consult to Physical Therapy [CONS] Routine Comment: Evaluate, develop and implement POC Reason for Consult: Evaluate, develop and implement POC Does patient have active BEDREST order?: No Is patient medically & hemodynamically stable?: Yes 05/17/18 20:25 Consult to Collar Turner [CONS] Routine Reason for SW Consult: receives home health 05/18/18 08:37 Consult to Nurse Navigator [CONS] Routine Comment: Acute on chronic diastolic heart failure education 05/19/18 11:39 Consult to Gastroenterology [CONS] Routine Consulting Provider: Gastroenterology [place] Reason for Consult: Colitis versus colon mass on CT, possible colonoscopy Call Completed: Yes 05/20/18 10:26 Consult to Infectious Diseases [CONS] Routine Consulting Provider: Infectious Disease Mill[facility] Reason for Consult: Recurrent MDRO UTI Call Completed: Yes 05/22/18 12:53 Consult to Nephrology [CONS] Routine Consulting Provider: [facility] [place]/YVON/DARIEL/KHUSHI Reason for Consult: new changes in UA; proteinuira, bilirubinuria, erythrocytouria stable Cr Call Completed: Yes 05/22/18 13:23 Consult to Nutrition [CONS] Routine Comment: Consulting Provider: NUTRITION Reason for Dietary Consult: PO Supplementation 05/23/18 16:07 Consult to Urology [CONS] Routine Consulting Provider: Urology Mill[facility] Reason for Consult: dark urine with sediment Call Completed: Yes 05/26/18 09:36 Consult to Invasive Line Access Team [CONS] Routine Reason for Consult: home atb Line Type: Midline - Constitutional Vitals: Temp Pulse Resp BP Pulse Ox 97.6 F 85 14 112/62 93 06/03/18 10:41 06/03/18 10:41 06/03/18 10:41 06/03/18 10:41 06/03/18 10:41 General appearance: Present: A&O X 3, no acute distress Exam: Gen.: NAD. AAOx3. Resting comfortably in bed HEENT: Normocephalic, atraumatic, lips cracked Pulmonary: Diminished BS b/l, no crackles, no wheezing, no rales Abdomen: soft, non tender, no guarding, no rebound. Extremities: swelling improved, no cyanosis or clubbing, trace edema. No erythema Neuro: no focal deficits Psych: Appropriate mood and behavior - Patient Status Disposition: Home Health Service Condition: Good Overall status at discharge: patient is back to baseline - Discharge Instructions Follow Up With: Isaac De La Cruz MD [Partnered Physician] - 06/15/18 3:30 pm Nithin Hernandez [Primary Care Provider] - 06/05/18 1:55 pm Juan Ramon Sandra MD [Partnered Physician] - - Diet and Activity Activity: increase activity as tolerated Diet: low salt diet
--- NOTE | 2018-06-03 12:29 | Physician Discharge Referral ---
Home Health/Hosp Referral Info Transfer to: Home Health Provider in Charge Post Discharge: PCP - Diagnosis (1) UTI (urinary tract infection) Status: Acute (2) C. difficile colitis Status: Acute (3) Acute on chronic diastolic heart failure Status: Chronic (4) Morbid obesity Status: Chronic (5) Coronary artery disease Status: Chronic (6) Atrial fibrillation Status: Chronic (7) Diabetes Status: Chronic (8) Anemia Status: Suspected (9) Sacral decubitus ulcer, stage II Status: Chronic (10) Debility Status: Acute (11) COPD (chronic obstructive pulmonary disease) Status: Chronic (12) History of CVA (cerebrovascular accident) Status: Acute (13) Cirrhosis Status: Chronic (14) Proteinuria Status: Acute (15) DVT prophylaxis Status: Acute - Respiratory Orders Smoking Cessation: Smoking cessation has been advised. For more information, call the [place] Tobacco Quit Line at 1-380-JNMO-NOW. - Services Needed Following services are medically necessary services: Nursing, Physical Therapy, Occupational Therapy - Transfer Medications Prescriptions: DiphenhydraMINE [Benadryl] 25 mg PO Q8HR PRN #20 capsule PRN Reason: Itching Lactobacillus [Culturelle] 1 each PO BID #60 cap.sprink Home Medications: Aspirin Enteric Coated [Aspirin EC] 81 mg PO DAILY 04/27/18 [History] Metoprolol [Lopressor] 12.5 mg PO BID 04/27/18 [History] Apixaban [Eliquis] 5 mg PO BID #60 tablet 05/04/18 [Rx] Furosemide [Lasix] 20 mg PO BID 05/17/18 [History] HYDROcodone/Acet 10/325 mg [[place] 10-325 mg] 1 tab PO BID PRN 05/17/18 [History] Fluticasone Propionate Nasal [Flonase] 50 mcg NS DAILY 05/22/18 [History] DiphenhydraMINE [Benadryl] 25 mg PO Q8HR PRN #20 capsule 06/03/18 [Rx] Lactobacillus [Culturelle] 1 each PO BID #60 cap.sprink 06/03/18 [Rx] Nystatin POWDER [Nystop] 1 appl TP BID bottle 06/03/18 [Rx] Allergies/Adverse Reactions: Allergy/AdvReac Type Severity Reaction Status Date / Time shellfish derived Allergy Severe Anaphylaxis Verified 05/17/18 12:47 levofloxacin [From Levaquin] Allergy Hives Verified 05/17/18 12:47 Penicillins Allergy Blister Verified 05/17/18 12:47 prednisone Allergy See Verified 05/17/18 12:47 Comments Sulfa (Sulfonamide Allergy Hives Verified 05/17/18 12:47 Antibiotics) egg AdvReac Severe Throat Verified 05/17/18 12:47 swelling nitrofurantoin AdvReac Severe Bruising Verified 05/17/18 12:47 [From Macrobid] on arms Certification: Further, I certify that my clinical findings support that this patient is homebo und (i.e. absences from home require considerable and taxing effort and are for medical reasons or amish services or infrequently or short duration when for other reasons) because: Homebound Reason: Patient requires assistance of a person or device to safely leave home Attestation: My signature below is to certify that this patient is under my care and that I, or nurse practitioner, or a physician's assistant plant controller working with me, has a [id number] encounter with this patient.
== END 2018-06-03 14:20 | disposition home health service (06) | DRG 371 ==
LOC: 3ANU 12:25 → EMEROOARM 12:25 → SUATTDRO 16:51 → 3ANU 18:40 → SUATTDRO 05-21 15:30 → UNDODISIN 05-26 06:50
PROVIDERS: ADMIT Student in an Organized Health Care Education/Training Program; ATTEND Family Medicine

== ENCOUNTER 2018-06-07 01:48 | Inpatient (IN) ==
--- NOTE | 2018-06-07 01:56 | Emergency Department Note ---
Disposition Clinical Impression: Atrial fibrillation with rapid ventricular response, COPD exacerbation UTI (urinary tract infection) Qualifiers: Urinary tract infection type: acute cystitis Hematuria presence: with hematuria Qualified Code(s): N30.01 - Acute cystitis with hematuria Disposition: Admitted As Inpatient Condition: Fair General Adult HPI - General Chief complaint: ED Shortness of Breath/Dyspnea Stated complaint: SoB Time Seen by Provider: 06/07/18 01:56 Nursing Notes Reviewed: Yes Vital Signs Reviewed: Yes - History of Present Illness HPI Narrative: 68-year-old female presents emergency department with concern for shortness of breath. Patient states she has history of asthma. She states she currently feels that she has bronchitis. Reports cough and not feeling well. - Related Data Home Medications Medication Instructions Recorded Confirmed Aspirin Enteric Coated [Aspirin EC] 81 mg PO DAILY 04/27/18 06/07/18 Metoprolol [Lopressor] 12.5 mg PO BID 04/27/18 06/07/18 Furosemide [Lasix] 20 mg PO BID 05/17/18 06/07/18 Fluticasone Propionate Nasal 50 mcg NS DAILY 05/22/18 06/07/18 [Flonase] Previous Rx's Medication Instructions Recorded Apixaban [Eliquis] 5 mg PO BID #60 tablet 05/04/18 DiphenhydraMINE [Benadryl] 25 mg PO Q8HR PRN #20 capsule 06/03/18 Lactobacillus [Culturelle] 1 each PO BID #60 cap.sprink 06/03/18 Nystatin POWDER [Nystop] 1 appl TP BID bottle 06/03/18 Allergies Allergy/AdvReac Type Severity Reaction Status Date / Time shellfish derived Allergy Severe Anaphylaxis Verified 05/17/18 12:47 levofloxacin [From Levaquin] Allergy Hives Verified 05/17/18 12:47 Penicillins Allergy Blister Verified 05/17/18 12:47 prednisone Allergy See Verified 05/17/18 12:47 Comments Sulfa (Sulfonamide Allergy Hives Verified 05/17/18 12:47 Antibiotics) egg AdvReac Severe Throat Verified 05/17/18 12:47 swelling nitrofurantoin AdvReac Severe Bruising Verified 05/17/18 12:47 [From Macrobid] on arms All systems ED: reviewed and negative except as stated. Review of Systems: As Per HPI Constitutional: Denies: fever, chills Cardiovascular: Denies: chest pain Respiratory: Reports: cough, dyspnea, wheezes Gastrointestinal: Denies: abdominal pain, nausea, vomiting Genitourinary: Reports: dysuria Musculoskeletal: Denies: back pain Integumentary: Denies: rash Neurological: Reports: weakness Endocrine: Reports: fatigue Past Medical History - Past Medical History Medical history: Reports: non-contributory, asthma, atrial fibrillation, CHF, COPD, coronary artery disease, CVA, kidney stones Surgical history: Reports: angioplasty/stent, cholecystectomy, hysterectomy Psychiatric history: Reports: anxiety, depression, panic disorder - Social History Smoking Status: Never smoker Smokeless Tobacco Status: No Alcohol use: Reports: none Drug use: Reports: none Physical Exam - General Limitations: no limitations General appearance: alert, other (Appears weak) - Head Head exam: normocephalic - Eye Eye exam: Present: EOMI - ENT ENT exam: mucous membranes dry (Red and cracked lips) - Neck Neck exam: Present: trachea midline - Chest Chest inspection: Present: symmetric chest wall rise - Respiratory Respiratory exam: Present: wheezes. Absent: respiratory distress - Cardiovascular Cardiovascular exam: Present: regular rate, normal rhythm, normal heart sounds - Abdominal Exam Abdominal exam: Present: soft, Non-Tender. Absent: distention, guarding, rebound, rigidity - Extremities Exam Extremities exam: Present: normal capillary refill - Back Exam Back exam: Present: full ROM - Neurological Exam Neurological exam: Present: alert, oriented X3 - Psychiatric Psychiatric exam: Present: flat affect - Skin Skin exam: Present: warm, dry, intact Course Vital Signs Temperature 98.9 F 06/07/18 01:53 Pulse Rate 95 06/07/18 01:53 Respiratory Rate 20 06/07/18 01:53 Blood Pressure 118/48 06/07/18 01:53 O2 Sat by Pulse Oximetry 99 06/07/18 01:53 Temperature 98.9 F 06/07/18 01:53 Pulse Rate 100 06/07/18 05:00 Respiratory Rate 23 06/07/18 05:00 Blood Pressure 114/51 06/07/18 05:00 O2 Sat by Pulse Oximetry 98 06/07/18 05:00 Oxygen Delivery Oxygen Delivery Room Air Medical Decision Making - MDM Narrative Medical decision making narrative: 68-year-old female presents emergency department with concern for shortness of breath, cough, dysuria. Also, patient is having generalized weakness. Patient is given 3 DuoNeb's as she was having wheezing on exam. With history of asthma, she was offered prednisone. Patient declined prednisone. Stated it made her "swell up like a toad". Chest showed not reveal any evidence of cardiopulmonary abnormality. Troponin was negative. Patient denies a leukocytosis. Patient's urine, however, was grossly bloody. Had nitrites and leukocyte esterase. Patient was given a gram of Rocephin IV. Patient had a mildly elevated lactic acid at 2.4. Blood cultures were obtained as well prior to administration of antimicrobials. Patient was provided 1 L of normal saline and she appeared very dry. No other fluids were administered as patient has history of congestive heart failure and her BNP is currently 289. No pleural effusions on chest x-ray. Patient had a episode of what appears to be atrial fibrillation with RVR rate as high as 160s. Patient was having palpitations at that time. She will be provided Cardizem IV bolus followed by Cardizem drip. Patient reports not taking her Toprol all ever since yesterday secondary to heart rate being in the low 50s. Initial EKG that was obtained reveals sinus rhythm. This time, patient should be admitted for further evaluation. Patient currently on Eliquis for anticoagulation and metoprolol for rate control. Currently pe nding a TSH. After discussion with the hospitalist, was concern that patient may have a urinary tract infection that may be resistant to Rocephin. Previous culture was sensitive to Zosyn. Patient has reported allergy to Zosyn. I asked patient what it was, she says she did not know. She states that penicillin gave her a blister and other notes. We will administer Zosyn. Patient was again offered steroids. She stated that she just did not want to take prednisone due to swelling in the past. Offered her Solu-Medrol IV, and she said that she would try it. Patient going in and out of atrial fibrillation at time of admission. Chest X-Ray 06/07/18 02:01 IMPRESSION: No acute cardiopulmonary disease. D/ / Rene Yung MD / Rene Yung MD Interpreting Provider: Rene Yung MD Vital Signs Temperature 98.9 F 06/07/18 01:53 Pulse Rate 95 06/07/18 01:53 Respiratory Rate 20 06/07/18 01:53 Blood Pressure 118/48 06/07/18 01:53 O2 Sat by Pulse Oximetry 99 06/07/18 01:53 Temperature 98.9 F 06/07/18 01:53 Pulse Rate 100 06/07/18 05:00 Respiratory Rate 23 06/07/18 05:00 Blood Pressure 114/51 06/07/18 05:00 O2 Sat by Pulse Oximetry 98 06/07/18 05:00 Oxygen Delivery Oxygen Delivery Room Air - Medical Records Medical records reviewed: Yes I reviewed the patient's medical records. - Lab Data Lab results reviewed: Yes I reviewed the patient's lab results. Result diagrams: 06/07/18 02:01 06/07/18 02:01 Lab Results 06/07/18 06/07/18 06/07/18 Range/Units 02:01 02:01 02:01 WBC 7.2 (4.3-11.1) K/mcL RBC 3.37 L (3.82-4.97) M/mcL Hgb 9.1 L (11.5-15.4) g/dL Hct 28.8 L (35.3-44.9) % MCV 85.5 (83.0-100.0) fL MCH 27.0 L (28.0-33.3) pg MCHC 31.6 (31.6-35.5) g/dL RDW 15.6 H (11.5-14.5) % Plt Count 140 (140-400) K/mcL MPV 11.3 (9.4-12.4) fL Immature Gran % 0.4 (0-4) % Seg Neutrophils % 60.9 % Lymphocytes % 25.4 % Monocytes % 5.9 % Eosinophils % 7.0 % Basophils % 0.4 % Neutrophils # 4.4 (1.6-8.9) K/mcL Lymphocytes # 1.8 (0.6-4.6) K/mcL Monocytes # 0.4 (0.0-1.3) K/mcL Eosinophils # 0.5 (0.0-0.6) K/mcL Basophils # 0.0 (0.0-0.2) K/mcL Sodium 138 (136-145) mEq/L Potassium 3.5 (3.5-5.1) mEq/L Chloride 106 (98-107) mEq/L Carbon Dioxide 24 (23-29) mEq/L BUN 23 (8-23) mg/dL Creatinine 0.74 (0.60-1.20) mg/dL Est GFR ( Amer) > 60 (> 60) Est GFR (Non-Af Amer) > 60 (> 60) BUN/Creatinine Ratio 31 H (6-26) Glucose 142 H (70-105) mg/dL Calculated Osmolality 292 (280-300) Lactic Acid (0.5-2.2) mmol/L Calcium 8.9 (8.6-10.3) mg/dL Troponin I < 0.03 (< 0.04) ng/mL B-Natriuretic Peptide 289 H (Less than 100) pg/mL Urine Color (Yellow) Urine Clarity (Clear) Urine pH (5.0-8.0) pH Units Ur Specific [place] (1.010-1.025) Urine Protein (Neg-Trace) mg/dL Urine Glucose (UA) (Normal) mg/dL Urine Ketones (Negative) mg/dL Urine Blood (Negative) Urine Nitrite (Negative) Urine Bilirubin (Negative) Urine Urobilinogen (Normal) mg/dL Ur Leukocyte Esterase (Negative) Ur Culture Indicated? (NO) 06/07/18 06/07/18 Range/Units 02:16 02:51 WBC (4.3-11.1) K/mcL RBC (3.82-4.97) M/mcL Hgb (11.5-15.4) g/dL Hct (35.3-44.9) % MCV (83.0-100.0) fL MCH (28.0-33.3) pg MCHC (31.6-35.5) g/dL RDW (11.5-14.5) % Plt Count (140-400) K/mcL MPV (9.4-12.4) fL Immature Gran % (0-4) % Seg Neutrophils % % Lymphocytes % % Monocytes % % Eosinophils % % Basophils % % Neutrophils # (1.6-8.9) K/mcL Lymphocytes # (0.6-4.6) K/mcL Monocytes # (0.0-1.3) K/mcL Eosinophils # (0.0-0.6) K/mcL Basophils # (0.0-0.2) K/mcL Sodium (136-145) mEq/L Potassium (3.5-5.1) mEq/L Chloride (98-107) mEq/L Carbon Dioxide (23-29) mEq/L BUN (8-23) mg/dL Creatinine (0.60-1.20) mg/dL Est GFR ( Amer) (> 60) Est GFR (Non-Af Amer) (> 60) BUN/Creatinine Ratio (6-26) Glucose (70-105) mg/dL Calculated Osmolality (280-300) Lactic Acid 2.4 H (0.5-2.2) mmol/L Calcium (8.6-10.3) mg/dL Troponin I (< 0.04) ng/mL B-Natriuretic Peptide (Less than 100) pg/mL Urine Color Red A (Yellow) Urine Clarity Turbid A (Clear) Urine pH 6.5 (5.0-8.0) pH Units Ur Specific [place] 1.023 (1.010-1.025) Urine Protein 100 H (Neg-Trace) mg/dL Urine Glucose (UA) Normal (Normal) mg/dL Urine Ketones Negative (Negative) mg/dL Urine Blood Large H (Negative) Urine Nitrite Positive A (Negative) Urine Bilirubin Small H (Negative) Urine Urobilinogen Normal (Normal) mg/dL Ur Leukocyte Esterase Moderate H (Negative) Ur Culture Indicated? YES A (NO) - Radiology Data Radiology results reviewed: Yes I reviewed the patient's radiology results. - EKG Data EKG #1 EKG attestation: Yes I reviewed and interpreted this EKG. EKG results narrative: 1:59 Heart rate 90 bpm, ND interval 166 ms, QRS duration 92 ms, QT 390 ms, left axis deviation. Sinus rhythm ventricular rate of 90 beats for minute. No evidence of any ischemic ST changes on this EKG. EKG #2 4:58 Heart rate 166, no P waves, QRS duration 83 ms, QT 335 ms, left axis Atrial fibrillation with rapid ventricular response. Critical Care Time Critical Care Time: Yes Total Critical Care Time: 40 Attestation: Critical care performed: Time is exclusive of separately billable procedures. Time includes: direct patient care, patient reassessment, coordination of patient care, interpretation of data (laboratory data, radiology data, and respiratory data), review of jazzmine ent's medical records, medical consultation and documentation of patient care. Procedures included in critical care time: Procedures excluded from critical care time: Attestation Statement - Attestation Attestation: I, Joni Gupta MD, personally evaluated this patient and discussed their management with the resident physician. I reviewed the resident's note and agree with the documented findings, medical decision making, and plan of care. 68-year-old female persisted emergency department with a complaint of shortness of breath which started earlier this evening. She also complains of some palp itations and a sensation of her heart racing and tightness in her chest. She denies any actual chest pain. Some cough. No fever. On examination patient is a well-developed obese elderly female in no acute distress. She is alert and oriented 3. There is no cyanosis or diaphoresis. Breath sounds are decreased bilaterally with scattered bilateral expiratory wheezes. Heart tachycardic and regular with occasional ectopy. Abdomen soft and nontender with normal bowel sounds. Labs reviewed. Chest x-ray negative. EKG shows a normal sinus rhythm with PACs, ventricular rate of 90. No acute ST segment elevation or depression. No significant change from prior EKG dated 05/17/2018. Patient was noted to have paroxysmal atrial fibrillation while here in the emergency department. She would develop frequent PACs on the monitor and then go into atrial flutter with RVR with a heart rate in the 160s. She was given a Cardizem bolus and started on Cardizem infusion. The hospitalist, Dr. Avilez, was consulted and accepted admission of the patient.
[2018-06-07] MEDS ORDERED: 0.9 % Sodium Chloride 1,000 ML IVC ONE (02:01)
[2018-06-07] MEDS ORDERED: Ipratropium/Albuterol Neb 3 ML IH ONE ×2 (02:01→07:58)
[2018-06-07 02:37] LABS: Basophils % 0.4 %; Eosinophils # 0.5 K/mcL (0.0-0.6); Hematocrit 28.8 % (35.3-44.9); Hemoglobin 9.1 g/dL (11.5-15.4); Immature Granulocytes % 0.4 % (0-4); Lymphocytes # 1.8 K/mcL (0.6-4.6); Lymphocytes % 25.4 %; Mean Corpuscular HGB Conc 31.6 g/dL (31.6-35.5); Mean Corpuscular Volume 85.5 fL (83.0-100.0); Mean Platelet Volume 11.3 fL (9.4-12.4); Monocytes # 0.4 K/mcL (0.0-1.3); Monocytes % 5.9 %; Neutrophils # 4.4 K/mcL (1.6-8.9); Platelet Count 140 K/mcL (140-400); Red Blood Count 3.37 M/mcL (3.82-4.97); Red Cell Distribution Width 15.6 % (11.5-14.5); Segmented Neutrophils % 60.9 %
[2018-06-07 02:55] LABS: BUN/Creatinine Ratio 31 (6-26); Blood Urea Nitrogen 23 mg/dL (8-23); Calcium 8.9 mg/dL (8.6-10.3); Carbon Dioxide 24 mEq/L (23-29); Chloride 106 mEq/L (98-107); Glucose 142 mg/dL (70-105); Osmolality,Calculated 292 (280-300); Potassium 3.5 mEq/L (3.5-5.1); Sodium 138 mEq/L (136-145); Troponin I < 0.03 ng/mL (< 0.04); eGFR For Non-African Americans > 60 (> 60)
[2018-06-07 03:20] LABS: Bilirubin,Urine Small (Negative); Blood,Urine Large (Negative); Color,Urine Red (Yellow); Glucose,Urine (UA) Normal (Normal); Ketones,Urine Negative (Negative); Leukocyte Esterase,Urine Moderate (Negative); Nitrite,Urine Positive (Negative); PH,Urine 6.5 pH Units (5.0-8.0); Protein,Urine 100 mg/dL (Neg-Trace); Specific Gravity,Urine 1.023 (1.010-1.025); Urobilinogen,Urine Normal (Normal)
[2018-06-07 03:21] LABS: Clarity,Urine Turbid (Clear)
[2018-06-07] MEDS ORDERED: cefTRIAXone 1,000 MG in Water for inj. (sterile) 20 ML 10 ML IVP ONE (04:09)
[2018-06-07] MEDS ORDERED: methylPREDNISolone 125 MG/2 ML VIAL IVP ONE (05:43)
[2018-06-07] MEDS ORDERED: Piperacillin/Tazobactam 3.375 GM in 0.9 % Sodium Chloride Mini Bag 100 ML IVPB ONE (05:43)
[2018-06-07 05:52] LABS: Thyroid Stimulating Hormone 2.769 mcIU/mL (0.340-5.600)
[2018-06-07] MEDS ORDERED: Naloxone 0.4 MG/ML INJ IVP PRN (08:16)
[2018-06-07] MEDS ORDERED: Acetaminophen 325 MG TABLET PO PRN (08:16)
--- NOTE | 2018-06-07 08:16 | Internal Med History&Physical ---
Date of Encounter: 06/07/18 Time of Encounter: 23:23 Internal Medicine - H&P: HPI Chief complaint: SOB History of present illness: Ms. Golden is a 68 year old female presents emergency department with concern for shortness of breath, cough, dysuria. Also, patient is having generalized weakness. She was evaluated by ER staff and his labs revealed lactic acid at 4.0. Patient had a episode of what appears to be atrial fibrillation with RVR rate as high as 160s , so Cardizem was started, Patient has reported allergy to Zosyn but was not confirmed so Zosyn and Solu-Medrol IV was started. , Past Med Surg Social Fam HX - Past Medical History Medical history: non-contributory, asthma, atrial fibrillation, CHF, COPD, coronary artery disease, CVA, kidney stones Additional medical history: recurrent UTI's Psychiatric history: anxiety, depression, panic disorder - Past Surgical History Surgical History: angioplasty/stent, cholecystectomy, hysterectomy Additional surgical history: bladder surgeries, lap band , right ureteral stent - Social History Smoking Status: Never smoker Smokeless Tobacco Status: No Alcohol use: none Drug use: none - Family History Brother Living Status: Still Living Hx Family Cardiac Disorders: Yes (HTN) Hx Family Endocrine Disorder: Yes (Diabetes) Father Living Status: Hx Family Cardiac Disorders: Yes (CABG x3 HTN diabetes) Hx Family Respiratory Disorders: No Hx Family Cancer: No Hx Family GI Disorders: No Hx Family Endocrine Disorder: Yes (diabetes) Hx Family Neuromuscular Disorders: No Hx Family Neurologic Disorders: No Hx Family HEENT Disorders: No Hx Family Autoimmune Disorders: No Mother Living Status: Hx Family Cardiac Disorders: Yes (htn) Hx Family Endocrine Disorder: Yes (dm) Internal Medicine - H&P: Meds RX: Aspirin Enteric Coated [Aspirin EC] 81 mg PO DAILY 04/27/18 [History] RX: Metoprolol [Lopressor] 12.5 mg PO BID 04/27/18 [History] RX: Apixaban [Eliquis] 5 mg PO BID #60 tablet 05/04/18 [Rx] RX: Furosemide [Lasix] 20 mg PO BID 05/17/18 [History] RX: Fluticasone Propionate Nasal [Flonase] 50 mcg NS DAILY 05/22/18 [History] DiphenhydraMINE [Benadryl] 25 mg PO Q8HR PRN #20 capsule 06/03/18 [Rx] RX: Nystatin POWDER [Nystop] 1 appl TP BID bottle 06/03/18 [Rx] Lactobacillus [Culturelle] 1 each PO DAILY 06/07/18 [History] Potassium Chloride [Klor-Con 10] 10 meq PO DAILY 06/07/18 [History] Allergy/AdvReac Type Severity Reaction Status Date / Time shellfish derived Allergy Severe Anaphylaxis Verified 06/07/18 08:33 levofloxacin [From Levaquin] Allergy Hives Verified 06/07/18 08:33 Penicillins Allergy Blister Verified 06/07/18 08:33 prednisone Allergy See Verified 06/07/18 08:33 Comments Sulfa (Sulfonamide Allergy Hives Verified 06/07/18 08:33 Antibiotics) egg AdvReac Severe Throat Verified 06/07/18 08:33 swelling nitrofurantoin AdvReac Severe Bruising Verified 06/07/18 08:33 [From Macrobid] on arms All Systems PM: A 10-system review of systems was performed and is negative for pertinent findings except as documented above in the HPI. - Constitutional Constitutional: no chills, no fever(s), no night sweats - Cardiovascular Cardiovascular ROS IM: chest pain, dyspnea, palpitations, no diaphoresis, no lightheadedness, no syncope - Respiratory Respiratory: dyspnea, no cough, no wheezing, no excessive phlegm production - Gastrointestinal Gastrointestinal: no abdominal pain, no diarrhea, no hematemesis, no hematochezia, no melena, no nausea, no vomiting - Genitourinary Genitourinary: dysuria, no change in urinary stream, no flank pain, no hematuria - Neurological Neurological ROS: no confusion, no convulsions, no focal weakness, no numbness, no tingling, no tremor(s) - Constitutional Vitals: Temp Pulse Resp BP Pulse Ox 98.2 F 94 16 132/66 94 06/07/18 07:35 06/07/18 07:35 06/07/18 07:35 06/07/18 07:35 06/07/18 07:35 Exam: Pt is AAO x3, in NAD HEENT: NC/AT, PERRL Neck: Supple, no JVD Lungs: Coarse breath sound b/l, scattered wheezes b/l Heart: S1S2, irregularly irregular Abd: Soft, NT, BS + x4 Ext: Mild b/l edema Neuro: No focal deficit. Internal Med - H&P Results - Labs CBC & Chem 7: 06/11/18 06:30 06/12/18 06:15 Labs: Short CBC 06/07/18 Range/Units 02:01 WBC 7.2 (4.3-11.1) K/mcL Hgb 9.1 L (11.5-15.4) g/dL Hct 28.8 L (35.3-44.9) % Plt Count 140 (140-400) K/mcL Neutrophils # 4.4 (1.6-8.9) K/mcL BMP 06/07/18 02:01 Sodium 138 Potassium 3.5 Chloride 106 Carbon Dioxide 24 BUN 23 Creatinine 0.74 Glucose 142 H Calcium 8.9 Cardiac Enzymes 06/07/18 Range/Units 02:01 Troponin I < 0.03 (< 0.04) ng/mL Urine 06/07/18 Range/Units 02:51 Urine Color Red A (Yellow) Urine Clarity Turbid A (Clear) Urine pH 6.5 (5.0-8.0) pH Units Ur Specific [place] 1.023 (1.010-1.025) Urine Protein 100 H (Neg-Trace) mg/dL Urine Glucose (UA) Normal (Normal) mg/dL - Impressions ITS Impressions Chest X-Ray 06/07/18 02:01 IMPRESSION: No acute cardiopulmonary disease. D/ / Rene Yung MD / Rene Yung MD Interpreting Provider: Rene Yung MD - Assessment and plan (1) Acute exacerbation of COPD with asthma Current Visit: No Status: Acute Assessment and plan: ASSESSMENT: - SOB due to COPD exacerbation caused PLAN: - Aerosols q 4 hr and PRN SOB - Solu-medrol 40 mg IV q 6 hr - O2 to keep SpO2 higher than 92% (SpO higher than 95% if CAD) - CBCD, BMP in AM - Tylenol 650 mg PO q 4-6 hr PRN pain/fever - Heparin 5000 U SQ BID - Home meds - check the list and restart - ABs (2) Coronary artery disease Current Visit: No Status: Chronic Assessment and plan: We will continue home medication Qualifiers: Coronary Disease-Associated Artery/Lesion type: [place] artery [place] vs. transplanted heart: [place] heart Associated angina: without angina Qualified Code(s): I25.10 - Atherosclerotic heart disease of [place] coronary artery without angina pectoris (3) Atrial fibrillation with rapid ventricular response Current Visit: Yes Status: Acute Assessment and plan: The patient was started on Cardizem drip by the ER staff, however now she is in sinus rhythm and rate is controlled, continue discontinue Cardizem and we will consult cardiology for further evaluation and management (4) UTI (urinary tract infection) Current Visit: No Status: Resolved Assessment and plan: Patient has history of UTI, UA is suggestive of possible UTI , her previous culture was resistant to ceftriaxone , and sensitive to Zosyn , her allergy to Zosyn was not confirmed ER decided to proceed with giving her Zosyn, will c ontinue Zosyn , we will up on urine culture for further adjustment of antibiotics Qualifiers: Urinary tract infection type: acute cystitis Hematuria presence: without hematuria Qualified Code(s): N30.00 - Acute cystitis without hematuria (5) History of nephrolithiasis Current Visit: No Status: Acute (6) Morbid obesity Current Visit: No Status: Chronic (7) DVT prophylaxis Current Visit: No Status: Acute - Time Spent With Patient Total time spent is greater than 50% in coordination of care (as documented) at patient's floor/unit and/or counseling patient:
[2018-06-07] MEDS ORDERED: 0.9 % Sodium Chloride 1,000 ML IVC SCH (08:30)
[2018-06-07 09:05] LABS: Chol/HDL Ratio 4.3 (0-4.9)
[2018-06-07] MEDS: Lactobacillus 1 EACH CAP.SPRINK PO SCH ×2 (10:07→21:01)
[2018-06-07] MEDS: Apixaban 5 MG TABLET PO SCH ×2 (10:07→21:01)
[2018-06-07] MEDS: Aspirin Enteric Coated 81 MG Tablet PO SCH (10:07)
[2018-06-07] MEDS: Fluticasone Propionate Nasal 50 MCG/SPRAY BOTTLE NS SCH (10:07)
[2018-06-07] MEDS: Nystatin POWDER 30 GM BOTTLE TP SCH ×2 (10:08→23:51)
[2018-06-07] MEDS: Ipratropium/Albuterol Neb 3 ML IH SCH ×3 (11:06→21:57)
--- NOTE | 2018-06-07 11:18 | Cardiology Consult Note ---
<ToribioKavya J - Last Filed: 06/07/18 13:01> Date of Encounter: 06/07/18 Time of Encounter: 09:45 Assessment and Plan (1) Sepsis Current Visit: No Status: Acute Per cardiology: -Admitted with sepsis, received IV fluid boluses. -Now with pulmonary edema per x-ray, worsening respiratory status. -Sepsis management per primary service. Qualifiers: Sepsis type: sepsis due to unspecified organism Qualified Code(s): A41.9 - Sepsis, unspecified organism (2) Acute on chronic diastolic heart failure Current Visit: No Status: Chronic Per cardiology: -Known chronic diastolic CHF. -TTE 05/18/18 with LVEF 60%, mild diastolic dysfunction, mildly dilated left atrium, mild MR, trace TR, no segmental wall motion abnormalities noted. -On po lasix 20mg BID at home. -Admitted with sepsis and given IV fluid boluses plus continues IV fluids. -Now with worsening respiratory status. Volume overloaded on exam. -Repeat x-ray ordered and now with pulmonary edema. IV fluids stopped and will given lasix 40mg IV x1 now. -Strict i/os, fluid restriction, daily weight. -Will repeat Limited TTE to ensure LVEF has remained preserved. -Will repeat BNP, suspect higher than admission at 289. -Monitor respiratory status closely. (3) Supraventricular tachycardia Current Visit: No Status: Chronic Per cardiology: -History of SVT -SVT noted per ECG. -Was started on cardizem drip -Now SR, HR controlled. -ON bb. -Will switch cardizem to po, wean cardizem drip to off. (4) PAF (paroxysmal atrial fibrillation) Current Visit: Yes Status: Chronic Per cardiology: -Known PAF. -ON lopressor at home. -On eliquis for anticoagulation. -On cardizem drip, -Continue eliquis. -Converting cardizem IV to po. (5) Coronary artery disease Current Visit: No Status: Chronic Per cardiology: -Known history of CAD -[facility] 09/2016 with patent stents, otherwise mild disease. -Troponins negative x2. -Last TTE as above with preserved LVEF. -On asa, bb. Not on statin due to liver dysfunction. -Continue to trend troponins. -Repeating limited TTE. Qualifiers: Coronary Disease-Associated Artery/Lesion type: [place] artery [place] vs. transplanted heart: [place] heart Associated angina: without angina Qualified Code(s): I25.10 - Atherosclerotic heart disease of [place] coronary artery without angina pectoris Discussion w patient/family: The assessment and plan as outlined above was discussed with the patient who expressed understanding and agreement. All questions were answered. Thank you for involving us in the care of your patient. Please call with any questions. Discussed and reviewed with . History of Present Illness Consult date: 06/07/18 Requesting physician: Carolynn Palm Consult reason: a.fib RVR Chief complaint: Shortness of breath History of present illness: Ms. Golden is a 68 year old female with a relevant past medical history of HTN, CAD reported PCI, chronic diastolic CHF, COPD, PAF, HLD, depression, CVA, recurrent UTI, kidney stones who presented to [facility] with complaints of difficulty in breathing. Patient denies chest pain. Reports worsening edema. Reports fatigue. Patient denies palpitations or fluttering. Patient reports breathing is getting worse. Past Med Surg Social Fam HX - Past Medical History Attestation: Yes The following information was validated with the patient. Source: patient, old records reviewed Medical history: non-contributory, asthma, atrial fibrillation, CHF, COPD, coronary artery disease, CVA, kidney stones Additional medical history: recurrent UTI's Psychiatric history: anxiety, depression, panic disorder - Past Surgical History Surgical History: angioplasty/stent, cholecystectomy, hysterectomy Additional surgical history: bladder surgeries, lap band , right ureteral stent - Social History Smoking Status: Never smoker Smokeless Tobacco Status: No Alcohol use: none Drug use: none - Family History Brother Living Status: Still Living Hx Family Cardiac Disorders: Yes (HTN) Hx Family Endocrine Disorder: Yes (Diabetes) Father Living Status: Hx Family Cardiac Disorders: Yes (CABG x3 HTN diabetes) Hx Family Respiratory Disorders: No Hx Family Cancer: No Hx Family GI Disorders: No Hx Family Endocrine Disorder: Yes (diabetes) Hx Family Neuromuscular Disorders: No Hx Family Neurologic Disorders: No Hx Family HEENT Disorders: No Hx Family Autoimmune Disorders: No Mother Living Status: Hx Family Cardiac Disorders: Yes (htn) Hx Family Endocrine Disorder: Yes (dm) Medications and Allergies RX: Aspirin Enteric Coated [Aspirin EC] 81 mg PO DAILY 04/27/18 [History] RX: Metoprolol [Lopressor] 12.5 mg PO BID PRN 04/27/18 [History] RX: Apixaban [Eliquis] 5 mg PO BID #60 tablet 05/04/18 [Rx] RX: Furosemide [Lasix] 20 mg PO BID 05/17/18 [History] RX: Fluticasone Propionate Nasal [Flonase] 50 mcg NS DAILY 05/22/18 [History] DiphenhydraMINE [Benadryl] 25 mg PO Q8HR PRN #20 capsule 06/03/18 [Rx] RX: Nystatin POWDER [Nystop] 1 appl TP BID bottle 06/03/18 [Rx] Lactobacillus [Culturelle] 1 each PO DAILY 06/07/18 [History] Potassium Chloride [Klor-Con 10] 10 meq PO DAILY 06/07/18 [History] Allergy/AdvReac Type Severity Reaction Status Date / Time shellfish derived Allergy Severe Anaphylaxis Verified 06/07/18 08:33 levofloxacin [From Levaquin] Allergy Hives Verified 06/07/18 08:33 Penicillins Allergy Blister Verified 06/07/18 08:33 prednisone Allergy See Verified 06/07/18 08:33 Comments Sulfa (Sulfonamide Allergy Hives Verified 06/07/18 08:33 Antibiotics) egg AdvReac Severe Throat Verified 06/07/18 08:33 swelling nitrofurantoin AdvReac Severe Bruising Verified 06/07/18 08:33 [From Macrobid] on arms All Systems Review: The remainder of the systems were reviewed and are negative - Cardiovascular Cardiovascular: as per HPI, dyspnea at rest, dyspnea on exertion, leg edema Physical Examination Vital Signs, Last 4 Hours Temp Pulse Resp BP Pulse Ox 06/07/18 07:35 98.2 F 94 16 132/66 94 General: Conversant, Other (Conversational dyspnea noted. ) HEENT: Atraumatic, Normocephaly, Mucus Membranes Moist Neck: No JVD, Normal carotid pulses Cardiac: Reg Rate and Rhythm, Normal S1 and S2, No Murmur Lungs: Other (Crackles and expiratory wheezing noted throughout. Using accessory muscles. ) Neuro: Alert and responsive, No focal deficits noted Abdomen: Soft, Non-Tender Skin: No rashes noted on visualized skin Musculoskeletal: No Chest Wall Tenderness Extremities: No Clubbing, No Cyanosis, Normal Pulses, Other (2+ bilateral lower extremity pitting edema noted. ) Results 06/07/18 02:01 06/07/18 02:01 Lab Results Impressions Chest X-Ray 06/07/18 02:01 IMPRESSION: No acute cardiopulmonary disease. D/ / Rene Yung MD / Rene Yung MD Interpreting Provider: Rene Yung MD Chest X-Ray 06/07/18 11:31 IMPRESSION: New suspected pulmonary vascular congestion with interstitial and perihilar airspace opacities which may represent edema or pneumonia. D/ / David Yost / David Yost Interpreting Provider: David Yost Active Medications Acetaminophen (Tylenol) 650 mg PO Q6HR PRN PRN Reason: Mild Pain/Fever Stop: 12/07/18 08:17 Last Admin: 06/07/18 10:07 Dose: 650 mg Albuterol/Ipratropium (Duoneb) 3 ml IH QIDR [facility] Stop: 12/07/18 11:01 Last Admin: 06/07/18 11:06 Dose: 3 ml Apixaban (Eliquis) 5 mg PO BID [facility] Stop: 12/07/18 09:01 Last Admin: 06/07/18 10:07 Dose: 5 mg Aspirin (Aspirin Ec) 81 mg PO DAILY [facility] Stop: 12/07/18 09:01 Last Admin: 06/07/18 10:07 Dose: 81 mg Diltiazem HCl (Cardizem Cd) 120 mg PO DAILY [facility] Stop: 12/07/18 13:01 Diphenhydramine HCl (Benadryl) 25 mg PO Q8HR PRN PRN Reason: Itching Stop: 12/07/18 08:20 Fluticasone Propionate (Flonase) 50 mcg NS DAILY [facility]; Protocol Stop: 12/07/18 09:01 Last Admin: 06/07/18 10:07 Dose: 50 mcg Diltiazem HCl 50 mg/ Sodium (Chloride) 50 mls @ 5 mls/hr IVC .Q10H [facility]; Protocol Stop: 12/07/18 05:16 Last Admin: 06/07/18 05:59 Dose: 5 mg/hr, 5 mls/hr Piperacillin Sod/Tazobactam (Sod 3.375 gm/ Sodium Chloride) 100 mls @ 25 mls/hr IVPB Q8HR [facility] Stop: 12/07/18 16:01 Lactobacillus Acidophilus/Rhamnosus (Culturelle) 1 each PO BID [facility] Stop: 12/07/18 09:01 Last Admin: 06/07/18 10:07 Dose: 1 each Methylprednisolone (Solu-Medrol) 40 mg IVP Q6HR [facility] Stop: 12/07/18 12:01 Metoprolol Tartrate (Lopressor) 12.5 mg PO BID [facility] Stop: 12/07/18 09:01 Last Admin: 06/07/18 10:07 Dose: 12.5 mg Naloxone HCl (Narcan) 0.4 mg IVP Q2MIN PRN PRN Reason: SEE COMMENTS Stop: 12/07/18 08:17 Nystatin (Nystop) 1 appl TP BID [facility] Stop: 12/07/18 09:01 Last Admin: 06/07/18 10:08 Dose: 1 appl Laboratory Tests 06/07/18 06/07/18 06/07/18 02:01 02:01 02:01 Hgb 9.1 L Creatinine 0.74 Troponin I < 0.03 B-Natriuretic Peptide 289 H 06/07/18 08:30 Hgb Creatinine Troponin I < 0.03 B-Natriuretic Peptide - Imaging and Cardiology Chest Xray: report reviewed Echo: pending, report reviewed Cardiac cath: report reviewed - EKG Interpretation EKG results cardiology: personally reviewed (ECG with 06/07/18 0458 with SVT, HR 166.), other (Telemetry reviewed with average HR previous 12 hours noted to be 94, SR. PVCs and PACs noted.) Consult Discharge Plan - Plan Referrals: NONE,PCP [Primary Care Provider] - <Miller Hampton - Last Filed: 06/07/18 14:31> - Attending Attestation I have personally performed a face to face evaluation on this patient. I have reviewed and agree with the care plan. History and Exam by me shows: 68-year-old female with history of coronary artery disease status post-PCI in the past, preserved ejection fraction on echocardiogram with history of CHF with preserved ejection fraction presents with fevers, chills, nonproductive cough. Patient presumed to have sepsis possibly from a UTI versus pneumonia and received IV normal saline boluses. Patient now complaining of shortness of breath with lower extremity edema found to have pulmonary edema on a repeat chest x-ray today. Lasix IV 40 mg was administered possibly iatrogenic versus cardiac etiology. Paroxysmal atrial fibrillation with a run of SVT on eliquis for stroke risk reduction Negative cardiac markers and relatively low BNP favor fluid overload. Repeat BN P and trend cardiac enzymes. Limited echocardiogram for EF to evaluate Assessment and Plan Discussion w patient/family: The assessment and plan as outlined above was discussed with the patient and/or family members who expressed understanding and agreement. All questions were answered. Thank you for involving us in the care of your patient. Please call with any questions. History of Present Illness History of present illness: Ms. Golden is a 68 year old female All Systems Review: The remainder of the systems were reviewed and are negative Physical Examination Vital Signs, Last 4 Hours Temp Pulse Resp BP Pulse Ox 06/07/18 11:55 100.3 F H 77 22 111/76 99 06/07/18 11:06 20 93 Results 06/07/18 02:01 06/07/18 02:01 Lab Results 06/07/18 06/07/18 06/07/18 02:01 02:01 02:01 WBC 7.2 Hgb 9.1 L Hct 28.8 L Plt Count 140 Sodium 138 Potassium 3.5 Chloride 106 Carbon Dioxide 24 BUN 23 Creatinine 0.74 Glucose 142 H Calcium 8.9 Troponin I < 0.03 B-Natriuretic Peptide 289 H TSH 2.769 06/07/18 08:30 WBC Hgb Hct Plt Count Sodium Potassium Chloride Carbon Dioxide BUN Creatinine Glucose Calcium Troponin I < 0.03 B-Natriuretic Peptide TSH
[2018-06-07] MEDS ORDERED: Furosemide 40 MG/4 ML VIAL IVP ONE (12:51)
[2018-06-07] MEDS: MethylPREDNISolone 40 MG/ML VIAL IVP SCH ×3 (14:11→23:51)
[2018-06-07] MEDS: Diltiazem CD (24hr) 120 MG CAPSULE PO SCH (14:19)
--- NOTE | 2018-06-07 15:31 | Electrocardiograph Report ---
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
--- NOTE | 2018-06-07 15:34 | Electrocardiograph Report ---
[address] [address] Test Date: 2018-06-07 Pat Name: Aixa Golden Department: [id number] Room: 2N06 Gender: Respiratory Technician: : 1950 Requested By: Carolynn Palm Order Number: [id number] Reading MD: Dakota Carey Measurements Intervals [place] Rate: 166 P: 95 [place]: 90 QRS: -31 QRSD: 83 T: 94 QT: 335 QTc: 557 Interpretive Statements Supraventricular tachycardia Left axis deviation Electronically Signed On 06-07-2018 15:32:56 EDT by Dakota Carey
--- NOTE | 2018-06-07 15:34 | Electrocardiograph Report ---
[place] [address] Test Date: 2018-06-07 Pat Name: Aixa Golden Department: [id number] Room: 2N06 Gender: F Vapor Coater: : 1950 Requested By: Yanick Avilez Order Number: [id number] Reading MD: Dakota Carey Measurements Intervals [place] Rate: 97 P: 57 [place]: 172 QRS: -10 QRSD: 93 T: 45 QT: 379 QTc: 482 Interpretive Statements Sinus rhythm Electronically Signed On 06-07-2018 15:33:08 EDT by Dakota Carey
[2018-06-07] MEDS: Piperacillin/Tazobactam 3.375 GM in 0.9 % Sodium Chloride Mini Bag 100 ML IVPB SCH ×2 (16:04→23:49)
[2018-06-08] MEDS: Ipratropium/Albuterol Neb 3 ML IH SCH ×4 (04:35→23:37)
[2018-06-08 05:33] LABS: Hematocrit 26.9 % (35.3-44.9); Hemoglobin 8.5 g/dL (11.5-15.4); Immature Granulocytes % 0.4 % (0-4); Lymphocytes # 0.4 K/mcL (0.6-4.6); Lymphocytes % 8.2 %; Mean Corpuscular HGB Conc 31.6 g/dL (31.6-35.5); Mean Corpuscular Hemoglobin 27.2 pg (28.0-33.3); Mean Corpuscular Volume 85.9 fL (83.0-100.0); Mean Platelet Volume 11.6 fL (9.4-12.4); Monocytes % 0.8 %; Neutrophils # 4.8 K/mcL (1.6-8.9); Platelet Count 130 K/mcL (140-400); Red Blood Count 3.13 M/mcL (3.82-4.97); Red Cell Distribution Width 15.7 % (11.5-14.5); Segmented Neutrophils % 90.6 %
[2018-06-08 05:57] LABS: Alanine Aminotransferase 24 Units/L (7-52); Albumin 3.1 g/dL (3.5-5.7); Albumin/Globulin Ratio 0.7 (1.1-2.2); Alkaline Phosphatase 136 Units/L (34-104); Aspartate Amino Transferase 34 Units/L (13-39); BUN/Creatinine Ratio 24 (6-26); Bilirubin,Total 0.7 mg/dL (0.3-1.0); Blood Urea Nitrogen 19 mg/dL (8-23); Calcium 8.6 mg/dL (8.6-10.3); Carbon Dioxide 24 mEq/L (23-29); Chloride 107 mEq/L (98-107); Globulin 4.3 g/dL (2.4-3.5); Glucose 225 mg/dL (70-105); Magnesium 1.9 mg/dL (1.6-2.6); Osmolality,Calculated 297 (280-300); Potassium 3.6 mEq/L (3.5-5.1); Sodium 139 mEq/L (136-145); Total Protein 7.4 g/dL (6.4-8.9); eGFR For Non-African Americans > 60 (> 60)
[2018-06-08] MEDS: MethylPREDNISolone 40 MG/ML VIAL IVP SCH ×4 (06:47→23:27)
[2018-06-08] MEDS: Lactobacillus 1 EACH CAP.SPRINK PO SCH ×2 (09:21→20:20)
[2018-06-08] MEDS: Aspirin Enteric Coated 81 MG Tablet PO SCH (09:22)
[2018-06-08] MEDS: Apixaban 5 MG TABLET PO SCH ×2 (09:22→20:20)
[2018-06-08] MEDS: Diltiazem CD (24hr) 120 MG CAPSULE PO SCH (09:22)
[2018-06-08] MEDS: Piperacillin/Tazobactam 3.375 GM in 0.9 % Sodium Chloride Mini Bag 100 ML IVPB SCH ×3 (09:23→23:27)
[2018-06-08] MEDS: Nystatin POWDER 30 GM BOTTLE TP SCH ×2 (09:42→20:24)
--- NOTE | 2018-06-08 10:50 | Cardiology Progress Note ---
Date of Encounter: 06/08/18 Time of Encounter: 09:45 Assessment and Plan (1) Sepsis Current Visit: No Status: Acute Per cardiology: Previous records reviewed, -Admitted with sepsis, received IV fluid boluses. -Now with pulmonary edema per x-ray, worsening respiratory status. -Sepsis management per primary service. BNP initially 289, now 624. On IV Lasix 40 mg daily area suspect volume overload due to fluid resuscitation. Echo from earlier small shows mild diastolic dysfunction. Euvolemic on exam. Discussed with Dr. Hampton, we will sign off. Qualifiers: Sepsis type: sepsis due to unspecified organism Qualified Code(s): A41.9 - Sepsis, unspecified organism (2) PAF (paroxysmal atrial fibrillation) Current Visit: Yes Status: Chronic Per cardiology: Previous records reviewed, -Known PAF. -ON lopressor at home. -On eliquis for anticoagulation. Currently sinus rhythm in the 70s. On metoprolol tartrate 12.5 mg by mouth twice a day, Cardizem CD 120 mg by mouth daily. Regarding long-term anticoagulation, remains on Eliquis. Continue to monitor closely. Cardiology signoff, reconsult as needed, follow-up arranged. Titrate rate controlling agents if clinically warranted. (3) Coronary artery disease Current Visit: No Status: Chronic Per cardiology: Records reviewed, -Known history of CAD -[facility] 09/2016 with patent stents, otherwise mild disease. Troponins negative 3. Limited echo shows EF preserved 65-70%. Chest pain- free. On asa, bb. Not on statin due to liver dysfunction. Qualifiers: Coronary Disease-Associated Artery/Lesion type: [place] artery [place] vs. transplanted heart: [place] heart Associated angina: without angina Qualified Code(s): I25.10 - Atherosclerotic heart disease of [place] coronary artery wit hout angina pectoris Discussion w patient/family: The assessment and plan as outlined above was discussed with the patient and/or family members who expressed understanding and agreement. All questions were answered. Thank you for involving us in the care of your patient. Please call with any questions. Subjective Principal diagnosis: Sepsis Interval history: Patient reports short of breath has improved. She denies any chest pain. Reports some occasional mild palpitations. Denies any active bleeding or blood loss. Denies any new concerns or complaints. Objective Vital Signs, Last 4 Hours Temp Pulse Resp BP Pulse Ox 06/08/18 08:01 97.2 F L 74 20 112/55 96 06/08/18 07:33 97.7 F 18 95 General: Conversant, No Apparent Distress HEENT: Atraumatic, Normocephaly, Mucus Membranes Moist Neck: No JVD, Normal carotid pulses Cardiac: Reg Rate and Rhythm, Normal S1 and S2, No Murmur Lungs: Normal Breath Sounds, Other (Mild conversational dyspnea noted, diminished breath sounds bilateral bases) Neuro: Alert and responsive, No focal deficits noted Abdomen: Soft, Non-Tender Skin: No rashes noted on visualized skin Musculoskeletal: No Chest Wall Tenderness Extremities: No Clubbing, No Cyanosis, No Edema, Normal Pulses Results 06/08/18 04:50 06/08/18 04:50 Lab Results Selected Entries 06/08/18 07:33 06/08/18 08:01 Temperature 97.2 F L Pulse Rate 74 Respiratory Rate 20 Blood Pressure 112/55 O2 Sat by Pulse Oximetry 96 Oxygen Flow Rate (LPM) 2 Oxygen Delivery Method Nasal Cannula Laboratory Tests 06/07/18 06/07/18 06/07/18 02:01 02:01 02:51 Hgb Hct Creatinine Est GFR (Non-Af Amer) Troponin I < 0.03 B-Natriuretic Peptide 289 H LDL Cholesterol, Calc TSH 2.769 Urine Blood Large H Urine Nitrite Positive A Ur Leukocyte Esterase Moderate H Ur Culture Indicated? YES A 06/07/18 06/07/18 06/07/18 08:30 08:30 20:40 Hgb Hct Creatinine Est GFR (Non-Af Amer) Troponin I < 0.03 < 0.03 B-Natriuretic Peptide LDL Cholesterol, Calc 54 TSH Urine Blood Urine Nitrite Ur Leukocyte Esterase Ur Culture Indicated? 06/08/18 06/08/18 06/08/18 04:50 04:50 04:50 Hgb 8.5 L Hct 26.9 L Creatinine 0.79 Est GFR (Non-Af Amer) > 60 Troponin I B-Natriuretic Peptide 624 H LDL Cholesterol, Calc TSH Urine Blood Urine Nitrite Ur Leukocyte Esterase Ur Culture Indicated? ITS Impressions Chest X-Ray 06/07/18 02:01 IMPRESSION: No acute cardiopulmonary disease. D/ / Rene Yung MD / Rene Yung MD Interpreting Provider: Rene Yung MD Chest X-Ray 06/07/18 11:31 IMPRESSION: New suspected pulmonary vascular congestion with interstitial and perihilar airspace opacities which may represent edema or pneumonia. D/ / David Yost / David Yost Interpreting Provider: David Yost Echocardiogram Limited Views 06/07/18 11:34 Impressions: Limited Echo for LV. LVEF 65-70%. Normal LV chamber size, wall thickness and systolic function. Intake & Output 06/05/18 06/06/18 06/07/18 06/08/18 23:59 23:59 23:59 23:59 Intake Total 1390 / 1390 220 / 220 Output Total 1500 / 1500 0 / 0 Balance -110 / -110 220 / 220 Weight 103.737 kg 102.6 kg Active Medications Acetaminophen (Tylenol) 650 mg PO Q6HR PRN PRN Reason: Mild Pain/Fever Stop: 12/07/18 08:17 Last Admin: 06/07/18 10:07 Dose: 650 mg Albuterol/Ipratropium (Duoneb) 3 ml IH QIDR [facility] Stop: 12/07/18 11:01 Last Admin: 06/08/18 04:35 Dose: 3 ml Apixaban (Eliquis) 5 mg PO BID [facility] Stop: 12/07/18 09:01 Last Admin: 06/08/18 09:22 Dose: 5 mg Aspirin (Aspirin Ec) 81 mg PO DAILY [facility] Stop: 12/07/18 09:01 Last Admin: 06/08/18 09:22 Dose: 81 mg Diltiazem HCl (Cardizem Cd) 120 mg PO DAILY [facility] Stop: 12/07/18 13:01 Last Admin: 06/08/18 09:22 Dose: 120 mg Diphenhydramine HCl (Benadryl) 25 mg PO Q8HR PRN PRN Reason: Itching Stop: 12/07/18 08:20 Last Admin: 06/08/18 00:25 Dose: 25 mg Fluticasone Propionate (Flonase) 50 mcg NS DAILY [facility]; Protocol Stop: 12/07/18 09:01 Last Admin: 06/07/18 10:07 Dose: 50 mcg Furosemide (Lasix) 40 mg IVP DAILY [facility] Stop: 12/08/18 10:16 Diltiazem HCl 50 mg/ Sodium (Chloride) 50 mls @ 5 mls/hr IVC .Q10H [facility]; Protocol Stop: 12/07/18 05:16 Last Admin: 06/07/18 23:30 Dose: Not Given Piperacillin Sod/Tazobactam (Sod 3.375 gm/ Sodium Chloride) 100 mls @ 25 mls/hr IVPB Q8HR [facility] Stop: 12/07/18 16:01 Last Admin: 06/08/18 09:23 Dose: 25 mls/hr Lactobacillus Acidophilus/Rhamnosus (Culturelle) 1 each PO BID [facility] Stop: 12/07/18 09:01 Last Admin: 06/08/18 09:21 Dose: 1 each Methylprednisolone (Solu-Medrol) 40 mg IVP Q6HR [facility] Stop: 12/07/18 12:01 Last Admin: 06/08/18 06:47 Dose: 40 mg Metoprolol Tartrate (Lopressor) 12.5 mg PO BID [facility] Stop: 12/07/18 09:01 Last Admin: 06/08/18 09:22 Dose: Not Given Naloxone HCl (Narcan) 0.4 mg IVP Q2MIN PRN PRN Reason: SEE COMMENTS Stop: 12/07/18 08:17 Nystatin (Nystop) 1 appl TP BID [facility] Stop: 12/07/18 09:01 Last Admin: 06/08/18 09:42 Dose: 1 appl Potassium Chloride (Potassium Chloride) 10 meq PO DAILY [facility] Stop: 12/08/18 09:01 Last Admin: 06/08/18 09:22 Dose: Not Given - Imaging and Cardiology Echo: report reviewed - EKG Interpretation EKG results cardiology: other (Sinus rhythm in the 70s on telemetry) Consult Discharge Plan - Plan Referrals: Nithin Hernandez [Partnered Physician] - 06/16/18 1:45 pm
[2018-06-08] MEDS: Fluticasone Propionate Nasal 50 MCG/SPRAY BOTTLE NS SCH (10:51)
[2018-06-08] MEDS: Furosemide 40 MG/4 ML VIAL IVP SCH (10:52)
[2018-06-08 11:34] LABS: Adenovirus Not Detected (Not Detect); Bordetella Pertussis Not Detected (Not Detect); Chlamydophila pneumoniae Not Detected (Not Detect); Coronavirus 229E Not Detected (Not Detect); Coronavirus HKU1 Not Detected (Not Detect); Coronavirus NL63 Not Detected (Not Detect); Coronavirus OC43 Not Detected (Not Detect); Human Metapneumovirus Not Detected (Not Detect); Human Rhinovirus/Enterovirus DETECTED (Not Detect); Influenza A Subtype 2009 H1 Not Detected (Not Detect); Influenza A Untypeable Not Detected (Not Detect); Influenza B Not Detected (Not Detect); Mycoplasma pneumoniae Not Detected (Not Detect); Parainfluenza Virus 1 Not Detected (Not Detect); Parainfluenza Virus 2 Not Detected (Not Detect); Parainfluenza Virus 3 Not Detected (Not Detect); Parainfluenza Virus 4 Not Detected (Not Detect); Respiratory Syncytial Virus Not Detected (Not Detect)
--- NOTE | 2018-06-08 11:42 | Internal Med Progress Note ---
Hospitalist Progress Note - Encounter Date of Encounter: 06/08/18 Time of Encounter: 09:00 - Subjective Interval History: Pt staes SOB is much better after lasix iv. Significantly decreased swelling after lasix. Still cough with mild SOB. No fever overnight. - Exam Vitals: Temp Pulse Resp BP Pulse Ox 98.1 F 76 16 115/56 96 06/08/18 11:31 06/08/18 11:31 06/08/18 11:31 06/08/18 11:31 06/08/18 11:31 Exam: Pt is AAO x3, in NAD HEENT: NC/AT, PERRL Neck: Supple, no JVD Lungs: Coarse breath sound b/l, scattered wheezes b/l Heart: S1S2, RRR Abd: Soft, NT Ext: Mild b/l edema Neuro: No focal deficit. - Assessment and Plan (1) DVT prophylaxis Current Visit: No Status: Acute Assessment and Plan: Pt is on Eliquis (2) Acute exacerbation of COPD with asthma Current Visit: No Status: Acute Assessment and Plan: ASSESSMENT: - SOB due to COPD exacerbation as pt has wheezing PLAN: - Aerosols q 4 hr and PRN SOB - Solu-medrol 40 mg IV q 6 hr - O2 to keep SpO2 higher than 92% (SpO higher than 95% if CAD) - Respiratory viral penal shows positive for Entero/Rhino virus (3) UTI (urinary tract infection) Current Visit: No Status: Resolved Assessment and Plan: Pt denies dysuria but urine culture positive for Gram negative art - On zosyn now, will switch to po abx per final culture result. - Noncomplicated UTI, will treat pt on totally 5 days of abx. (4) Morbid obesity Current Visit: No Status: Chronic Assessment and Plan: Need lifestyle modification as outpatient (5) Coronary artery disease Current Visit: No Status: Chronic Assessment and Plan: We will continue home medication. Trop x 3 negative. (6) History of nephrolithiasis Current Visit: No Status: Acute (7) Atrial fibrillation with rapid ventricular response Current Visit: Yes Status: Acute Assessment and Plan: Switch to NSR now. Cont home meds metoprolol and cardizem for rate controll. Cont Eliquis for AC. (8) Fluid overload Current Visit: Yes Status: Acute Assessment and Plan: Improved after iv lasix. will cont iv lasix for one or two days and switch home dose po lasix. DVT Prophylaxis: On Eliquis. - Time Spent with Patient Total time spent is greater than 50% in coordination of care (as documented) at patient's floor/unit and/or counseling patient: 30 min 25 - 35 minutes Plan of Care Discussed with: patient Internal Medicine: Result - Labs CBC & Chem 7: 06/08/18 04:50 06/08/18 04:50 Labs: Short CBC 06/08/18 Range/Units 04:50 WBC 5.3 (4.3-11.1) K/mcL Hgb 8.5 L (11.5-15.4) g/dL Hct 26.9 L (35.3-44.9) % Plt Count 130 L (140-400) K/mcL Neutrophils # 4.8 (1.6-8.9) K/mcL BMP 06/08/18 04:50 Sodium 139 Potassium 3.6 Chloride 107 Carbon Dioxide 24 BUN 19 Creatinine 0.79 Glucose 225 H Calcium 8.6 Cardiac Enzymes 06/07/18 Range/Units 20:40 Troponin I < 0.03 (< 0.04) ng/mL Liver Function 06/08/18 Range/Units 04:50 Total Bilirubin 0.7 (0.3-1.0) mg/dL AST 34 (13-39) Units/L ALT 24 (7-52) Units/L Alkaline Phosphatase 136 H (34-104) Units/L Albumin 3.1 L (3.5-5.7) g/dL - Impressions Impressions Chest X-Ray 06/07/18 11:31 IMPRESSION: New suspected pulmonary vascular congestion with interstitial and perihilar airspace opacities which may represent edema or pneumonia. D/ / David Yost / David Yost Interpreting Provider: David Yost Echocardiogram Limited Views 06/07/18 11:34 Impressions: Limited Echo for LV. LVEF 65-70%. Normal LV chamber size, wall thickness and systolic function. Consult Discharge Plan - Plan Referrals: Nithin Hernandez [Partnered Physician] - 06/16/18 1:45 pm (3) UTI (urinary tract infection) Qualifiers: Urinary tract infection type: acute cystitis Hematuria presence: without hematuria Qualified Code(s): N30.00 - Acute cystitis without hematuria (5) Coronary artery disease Qualifiers: Coronary Disease-Associated Artery/Lesion type: [place] artery [place] vs. transplanted heart: [place] heart Associated angina: without angina Qualified Code(s): I25.10 - Atherosclerotic heart disease of [place] coronary artery without angina pectoris (8) Fluid overload Qualifiers: Hypervolemia type: transfusion-associated Qualified Code(s): E87.71 - Transfusion associated circulatory overload
[2018-06-09] MEDS: Ipratropium/Albuterol Neb 3 ML IH SCH ×3 (03:55→15:58)
[2018-06-09 04:41] LABS: Basophils % 0.1 %; Hematocrit 26.8 % (35.3-44.9); Hemoglobin 8.4 g/dL (11.5-15.4); Immature Granulocytes % 0.5 % (0-4); Lymphocytes # 0.7 K/mcL (0.6-4.6); Lymphocytes % 7.7 %; Mean Corpuscular HGB Conc 31.3 g/dL (31.6-35.5); Mean Corpuscular Hemoglobin 26.7 pg (28.0-33.3); Mean Corpuscular Volume 85.1 fL (83.0-100.0); Mean Platelet Volume 11.7 fL (9.4-12.4); Monocytes # 0.2 K/mcL (0.0-1.3); Monocytes % 2.2 %; Platelet Count 150 K/mcL (140-400); Red Blood Count 3.15 M/mcL (3.82-4.97); Red Cell Distribution Width 15.6 % (11.5-14.5); Segmented Neutrophils % 89.5 %
[2018-06-09 04:42] LABS: Neutrophils # 7.8 K/mcL (1.6-8.9)
[2018-06-09 05:00] LABS: BUN/Creatinine Ratio 31 (6-26); Blood Urea Nitrogen 27 mg/dL (8-23); Calcium 8.8 mg/dL (8.6-10.3); Carbon Dioxide 24 mEq/L (23-29); Chloride 107 mEq/L (98-107); Glucose 254 mg/dL (70-105); Osmolality,Calculated 302 (280-300); Potassium 3.2 mEq/L (3.5-5.1); Sodium 139 mEq/L (136-145); eGFR For Non-African Americans > 60 (> 60)
[2018-06-09] MEDS: MethylPREDNISolone 40 MG/ML VIAL IVP SCH ×3 (05:46→18:19)
[2018-06-09] MEDS: Diltiazem CD (24hr) 120 MG CAPSULE PO SCH (08:46)
[2018-06-09] MEDS: Aspirin Enteric Coated 81 MG Tablet PO SCH (08:46)
[2018-06-09] MEDS: Apixaban 5 MG TABLET PO SCH ×2 (08:46→20:16)
[2018-06-09] MEDS: Lactobacillus 1 EACH CAP.SPRINK PO SCH ×2 (08:46→20:16)
[2018-06-09] MEDS: Nystatin POWDER 30 GM BOTTLE TP SCH ×2 (08:49→20:25)
[2018-06-09] MEDS: Fluticasone Propionate Nasal 50 MCG/SPRAY BOTTLE NS SCH (08:50)
[2018-06-09] MEDS: Furosemide 40 MG/4 ML VIAL IVP SCH (08:55)
[2018-06-09] MEDS: Piperacillin/Tazobactam 3.375 GM in 0.9 % Sodium Chloride Mini Bag 100 ML IVPB SCH (09:01)
[2018-06-09] MEDS ORDERED: Potassium Chloride Elixir 20 MEQ/15 ML UDC PO ONE (13:00)
[2018-06-09] MEDS: Furosemide 20 MG TABLET PO SCH (18:19)
--- NOTE | 2018-06-09 19:28 | Internal Med Progress Note ---
Hospitalist Progress Note - Encounter Date of Encounter: 06/09/18 Time of Encounter: 09:00 - Subjective Interval History: Pt staes SOB is better. Nonproductive cough. No fever. - Exam Vitals: Temp Pulse Resp BP Pulse Ox 96.8 F L 72 20 126/61 98 06/09/18 12:00 06/09/18 12:00 06/09/18 12:15 06/09/18 12:15 06/09/18 12:15 Exam: Pt is AAO x3, in NAD HEENT: NC/AT, PERRL Neck: Supple, no JVD Lungs: Coarse breath sound b/l, scattered wheezes b/l Heart: S1S2, RRR Abd: Soft, NT Ext: Mild b/l edema Neuro: No focal deficit. - Assessment and Plan (1) DVT prophylaxis Current Visit: No Status: Acute Assessment and Plan: Pt is on Eliquis (2) Acute exacerbation of COPD with asthma Current Visit: No Status: Acute Assessment and Plan: ASSESSMENT: - SOB due to COPD exacerbation as pt has wheezing PLAN: - Aerosols q 4 hr and PRN SOB - Solu-medrol 40 mg IV q 8 hr - O2 to keep SpO2 higher than 92% (SpO higher than 95% if CAD) - Respiratory viral penal shows positive for Entero/Rhino virus, consider acute bronchitis due to viral infection. (3) UTI (urinary tract infection) Current Visit: No Status: Resolved Assessment and Plan: Urine culture shows positive for Proteus Mirabilis, sensitive to ertapenem, will switch abx to ertapenem. (4) Morbid obesity Current Visit: No Status: Chronic Assessment and Plan: Need lifestyle modification as outpatient (5) Coronary artery disease Current Visit: No Status: Chronic Assessment and Plan: We will continue home medication. Trop x 3 negative. Denies chest pain (6) History of nephrolithiasis Current Visit: No Status: Acute (7) Atrial fibrillation with rapid ventricular response Current Visit: Yes Status: Acute Assessment and Plan: Switch to NSR now. Cont home meds metoprolol and cardizem for rate controll. Cont Eliquis for AC. (8) Fluid overload Current Visit: Yes Status: Acute Assessment and Plan: Improved after iv lasix. will switch to home dose po lasix. DVT Prophylaxis: On Eliquis. - Time Spent with Patient Total time spent is greater than 50% in coordination of care (as documented) at patient's floor/unit and/or counseling patient: 30 min 25 - 35 minutes Internal Medicine: Result - Labs CBC & Chem 7: 06/09/18 04:13 06/09/18 04:13 Labs: Short CBC 06/09/18 Range/Units 04:13 WBC 8.7 D (4.3-11.1) K/mcL Hgb 8.4 L (11.5-15.4) g/dL Hct 26.8 L (35.3-44.9) % Plt Count 150 (140-400) K/mcL Neutrophils # 7.8 (1.6-8.9) K/mcL BMP 06/09/18 04:13 Sodium 139 Potassium 3.2 L Chloride 107 Carbon Dioxide 24 BUN 27 H Creatinine 0.87 Glucose 254 H Calcium 8.8 Consult Discharge Plan - Plan Referrals: Nithin Hernandez [Partnered Physician] - 06/16/18 1:45 pm (3) UTI (urinary tract infection) Qualifiers: Urinary tract infection type: acute cystitis Hematuria presence: without hematuria Qualified Code(s): N30.00 - Acute cystitis without hematuria (5) Coronary artery disease Qualifiers: Coronary Disease-Associated Artery/Lesion type: [place] artery [place] vs. transplanted heart: [place] heart Associated angina: without angina Qualified Code(s): I25.10 - Atherosclerotic heart disease of [place] coronary artery without angina pectoris (8) Fluid overload Qualifiers: Hypervolemia type: transfusion-associated Qualified Code(s): E87.71 - Transfusion associated circulatory overload
[2018-06-10] MEDS: Ipratropium/Albuterol Neb 3 ML IH SCH ×5 (00:37→22:29)
[2018-06-10] MEDS: MethylPREDNISolone 40 MG/ML VIAL IVP SCH ×3 (03:58→17:18)
[2018-06-10 05:16] LABS: BUN/Creatinine Ratio 38 (6-26); Blood Urea Nitrogen 33 mg/dL (8-23); Calcium 8.4 mg/dL (8.6-10.3); Carbon Dioxide 26 mEq/L (23-29); Chloride 108 mEq/L (98-107); Glucose 197 mg/dL (70-105); Osmolality,Calculated 305 (280-300); Potassium 3.4 mEq/L (3.5-5.1); Sodium 141 mEq/L (136-145); eGFR For Non-African Americans > 60 (> 60)
[2018-06-10] MEDS: Potassium Chloride Elixir 20 MEQ/15 ML UDC PO SCH (09:25)
[2018-06-10] MEDS: Lactobacillus 1 EACH CAP.SPRINK PO SCH ×2 (09:26→20:44)
[2018-06-10] MEDS: Apixaban 5 MG TABLET PO SCH ×2 (09:26→20:44)
[2018-06-10] MEDS: Furosemide 20 MG TABLET PO SCH ×2 (09:26→17:18)
[2018-06-10] MEDS: Aspirin Enteric Coated 81 MG Tablet PO SCH (09:26)
[2018-06-10] MEDS: Diltiazem CD (24hr) 120 MG CAPSULE PO SCH (09:27)
[2018-06-10] MEDS: Fluticasone Propionate Nasal 50 MCG/SPRAY BOTTLE NS SCH (09:29)
[2018-06-10] MEDS: Nystatin POWDER 30 GM BOTTLE TP SCH ×2 (09:30→20:46)
--- NOTE | 2018-06-10 13:28 | Internal Med Progress Note ---
Hospitalist Progress Note - Encounter Date of Encounter: 06/10/18 Time of Encounter: 09:00 - Subjective Interval History: Pt staes SOB is better. Still has nonproductive cough. No fever. - Exam Vitals: Temp Pulse Resp BP Pulse Ox 97.8 F 82 18 109/71 95 06/10/18 11:45 06/10/18 12:00 06/10/18 11:45 06/10/18 11:45 06/10/18 11:45 Exam: Pt is AAO x3, in NAD HEENT: NC/AT, PERRL Neck: Supple, no JVD Lungs: Coarse breath sound b/l, scattered wheezes b/l Heart: S1S2, irregularly irregular Abd: Soft, NT Ext: Mild b/l edema Neuro: No focal deficit. - Assessment and Plan (1) DVT prophylaxis Current Visit: No Status: Acute Assessment and Plan: Pt is on Eliquis (2) Acute exacerbation of COPD with asthma Current Visit: No Status: Acute Assessment and Plan: ASSESSMENT: - SOB due to COPD exacerbation as pt has wheezing PLAN: - Aerosols q 4 hr and PRN SOB - Solu-medrol 40 mg IV q 8 hr - O2 to keep SpO2 higher than 92% (SpO higher than 95% if CAD) - Respiratory viral penal shows positive for Entero/Rhino virus, consider acute bronchitis due to viral infection. - Add cough syrup (3) UTI (urinary tract infection) Current Visit: No Status: Resolved Assessment and Plan: Urine culture shows positive for Proteus Mirabilis, sensitive to ertapenem, will switch abx to ertapenem. Pt has no symptoms, will d/c abx after 3 days. (4) Morbid obesity Current Visit: No Status: Chronic Assessment and Plan: Need lifestyle modification as outpatient (5) Coronary artery disease Current Visit: No Status: Chronic Assessment and Plan: We will continue home medication. Trop x 3 negative. Denies chest pain (6) History of nephrolithiasis Current Visit: No Status: Acute (7) Atrial fibrillation with rapid ventricular response Current Visit: Yes Status: Acute Assessment and Plan: Still PAF. HR is well controlled with home dose metoprolol and cardizem. Cont Eliquis for AC. DVT Prophylaxis: On eliquis. - Time Spent with Patient Total time spent is greater than 50% in coordination of care (as documented) at patient's floor/unit and/or counseling patient: 30 min 25 - 35 minutes Plan of Care Discussed with: patient Internal Medicine: Result - Labs CBC & Chem 7: 06/09/18 04:13 06/10/18 04:00 Labs: BMP 06/10/18 04:00 Sodium 141 Potassium 3.4 L Chloride 108 H Carbon Dioxide 26 BUN 33 H Creatinine 0.88 Glucose 197 H Calcium 8.4 L Consult Discharge Plan - Plan Referrals: Nithin Hernandez [Partnered Physician] - 06/16/18 1:45 pm (3) UTI (urinary tract infection) Qualifiers: Urinary tract infection type: acute cystitis Hematuria presence: without h ematuria Qualified Code(s): N30.00 - Acute cystitis without hematuria (5) Coronary artery disease Qualifiers: Coronary Disease-Associated Artery/Lesion type: [place] artery [place] vs. transplanted heart: [place] heart Associated angina: without angina Qualified Code(s): I25.10 - Atherosclerotic heart disease of [place] coronary artery without angina pectoris
--- NOTE | 2018-06-10 22:03 | Electrocardiograph Report ---
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
[2018-06-11] MEDS: Ipratropium/Albuterol Neb 3 ML IH SCH ×4 (04:03→22:30)
[2018-06-11] MEDS: MethylPREDNISolone 40 MG/ML VIAL IVP SCH ×2 (05:40→17:16)
[2018-06-11 06:53] LABS: Hematocrit 27.3 % (35.3-44.9); Hemoglobin 8.6 g/dL (11.5-15.4); Immature Granulocytes % 0.7 % (0-4); Lymphocytes # 0.7 K/mcL (0.6-4.6); Lymphocytes % 11.7 %; Mean Corpuscular HGB Conc 31.5 g/dL (31.6-35.5); Mean Corpuscular Hemoglobin 26.7 pg (28.0-33.3); Mean Corpuscular Volume 84.8 fL (83.0-100.0); Mean Platelet Volume 10.8 fL (9.4-12.4); Monocytes # 0.2 K/mcL (0.0-1.3); Monocytes % 2.7 %; Neutrophils # 4.8 K/mcL (1.6-8.9); Platelet Count 154 K/mcL (140-400); Red Blood Count 3.22 M/mcL (3.82-4.97); Red Cell Distribution Width 15.4 % (11.5-14.5); Segmented Neutrophils % 84.9 %
[2018-06-11 07:14] LABS: BUN/Creatinine Ratio 47 (6-26); Blood Urea Nitrogen 31 mg/dL (8-23); Calcium 8.4 mg/dL (8.6-10.3); Carbon Dioxide 24 mEq/L (23-29); Chloride 106 mEq/L (98-107); Glucose 300 mg/dL (70-105); Osmolality,Calculated 306 (280-300); Potassium 3.2 mEq/L (3.5-5.1); Sodium 139 mEq/L (136-145); eGFR For Non-African Americans > 60 (> 60)
[2018-06-11] MEDS ORDERED: *HR* Dextrose 50 % in Water (Syg) 50 ML SYRINGE IVP PRN (07:28)
[2018-06-11] MEDS ORDERED: Dextrose Gel 15 GM/37.5 ML TUBE PO PRN ×2 (07:28)
[2018-06-11] MEDS ORDERED: D5% in Water 1,000 ML IVC PRN (07:28)
[2018-06-11] MEDS: Diltiazem CD (24hr) 120 MG CAPSULE PO SCH (09:08)
[2018-06-11] MEDS: Aspirin Enteric Coated 81 MG Tablet PO SCH (09:08)
[2018-06-11] MEDS: Lactobacillus 1 EACH CAP.SPRINK PO SCH ×2 (09:09→21:31)
[2018-06-11] MEDS: Nystatin POWDER 30 GM BOTTLE TP SCH ×2 (09:09→21:34)
[2018-06-11] MEDS: Potassium Chloride Elixir 20 MEQ/15 ML UDC PO SCH (09:09)
[2018-06-11] MEDS: Apixaban 5 MG TABLET PO SCH ×2 (09:09→21:31)
[2018-06-11] MEDS: Fluticasone Propionate Nasal 50 MCG/SPRAY BOTTLE NS SCH (09:10)
[2018-06-11] MEDS: Insulin LISPRO 300 UNITS/3 ML VIAL SQ SCH ×3 (09:10→17:13)
[2018-06-11] MEDS: Furosemide 20 MG TABLET PO SCH ×2 (09:12→17:16)
[2018-06-11] MEDS ORDERED: Potassium Chloride 40 MEQ, Lidocaine 1% 2 ML in D5% in Water 500 ML IVPB ONE (10:43)
--- NOTE | 2018-06-11 12:49 | Internal Med Progress Note ---
Hospitalist Progress Note - Encounter Date of Encounter: 06/11/18 Time of Encounter: 09:00 - Subjective Interval History: Pt staes SOB is better. Less cough. No fever. - Exam Vitals: Temp Pulse Resp BP Pulse Ox 97.5 F L 73 18 107/66 97 06/11/18 10:54 06/11/18 10:54 06/11/18 11:01 06/11/18 10:54 06/11/18 11:01 Exam: Pt is AAO x3, in NAD HEENT: NC/AT, PERRL Neck: Supple, no JVD Lungs: Coarse breath sound b/l, scattered wheezes b/l Heart: S1S2, irregularly irregular Abd: Soft, NT Ext: Mild b/l edema Neuro: No focal deficit. - Assessment and Plan (1) DVT prophylaxis Current Visit: No Status: Acute Assessment and Plan: Pt is on Eliquis (2) Acute exacerbation of COPD with asthma Current Visit: No Status: Acute Assessment and Plan: ASSESSMENT: - SOB due to COPD exacerbation as pt has wheezing b/l PLAN: - Aerosols q 4 hr and PRN SOB - Solu-medrol 40 mg IV q 8 hr - O2 to keep SpO2 higher than 92% (SpO higher than 95% if CAD) - Respiratory viral penal shows positive for Entero/Rhino virus, consider acute bronchitis due to viral infection. - Add cough syrup - Add symbicort IH and singuliar po as wheezing persist (3) UTI (urinary tract infection) Current Visit: No Status: Resolved Assessment and Plan: Urine culture shows positive for Proteus Mirabilis, sensitive to ertapenem, will switch abx to ertapenem. Pt has no symptoms, d/c abx today after 3 days course. (4) Morbid obesity Current Visit: No Status: Chronic Assessment and Plan: Need lifestyle modification as outpatient (5) Coronary artery disease Current Visit: No Status: Chronic Assessment and Plan: We will continue home medication. Trop x 3 negative. Denies chest pain (6) History of nephrolithiasis Current Visit: No Status: Acute (7) Atrial fibrillation with rapid ventricular response Current Visit: Yes Status: Acute Assessment and Plan: Still PAF. NSR today. HR is well controlled with home dose metoprolol and cardizem. Cont Eliquis for AC. DVT Prophylaxis: On eliquis. - Time Spent with Patient Total time spent is greater than 50% in coordination of care (as documented) at patient's floor/unit and/or counseling patient: 30 min 25 - 35 minutes Plan of Care Discussed with: patient Internal Medicine: Result - Labs CBC & Chem 7: 06/11/18 06:30 06/11/18 06:30 Labs: Short CBC 06/11/18 Range/Units 06:30 WBC 5.6 (4.3-11.1) K/mcL Hgb 8.6 L (11.5-15.4) g/dL Hct 27.3 L (35.3-44.9) % Plt Count 154 (140-400) K/mcL Neutrophils # 4.8 (1.6-8.9) K/mcL BMP 06/11/18 06:30 Sodium 139 Potassium 3.2 L Chloride 106 Carbon Dioxide 24 BUN 31 H Creatinine 0.66 Glucose 300 H Calcium 8.4 L Consult Discharge Plan - Plan Referrals: Nithin Hernandez [Partnered Physician] - 06/16/18 1:45 pm (3) UTI (urinary tract infection) Qualifiers: Urinary tract infection type: acute cystitis Hematuria presence: without he maturia Qualified Code(s): N30.00 - Acute cystitis without hematuria (5) Coronary artery disease Qualifiers: Coronary Disease-Associated Artery/Lesion type: [place] artery [place] vs. transplanted heart: [place] heart Associated angina: without angina Qualified Code(s): I25.10 - Atherosclerotic heart disease of [place] coronary artery without angina pectoris
[2018-06-11] MEDS: Budesonide/Formoterol 160/4.5 1 PUFF INH IH SCH (22:30)
[2018-06-12] MEDS: Ipratropium/Albuterol Neb 3 ML IH SCH ×2 (04:19→11:03)
[2018-06-12] MEDS: MethylPREDNISolone 40 MG/ML VIAL IVP SCH (05:52)
[2018-06-12 06:55] LABS: BUN/Creatinine Ratio 41 (6-26); Blood Urea Nitrogen 30 mg/dL (8-23); Calcium 8.5 mg/dL (8.6-10.3); Carbon Dioxide 26 mEq/L (23-29); Chloride 107 mEq/L (98-107); Glucose 307 mg/dL (70-105); Osmolality,Calculated 304 (280-300); Potassium 3.8 mEq/L (3.5-5.1); Sodium 138 mEq/L (136-145); eGFR For Non-African Americans > 60 (> 60)
[2018-06-12 07:05] VITALS: BP 106/65
[2018-06-12] MEDS ORDERED: Ertapenem 1,000 MG in 0.9 % Sodium Chloride Mini Bag 100 ML IVPB SCH (09:00)
[2018-06-12] MEDS: Insulin LISPRO 300 UNITS/3 ML VIAL SQ SCH ×2 (09:00→12:42)
[2018-06-12] MEDS: Lactobacillus 1 EACH CAP.SPRINK PO SCH (09:02)
[2018-06-12] MEDS: Furosemide 20 MG TABLET PO SCH (09:02)
[2018-06-12] MEDS: Aspirin Enteric Coated 81 MG Tablet PO SCH (09:02)
[2018-06-12] MEDS: Fluticasone Propionate Nasal 50 MCG/SPRAY BOTTLE NS SCH (09:02)
[2018-06-12] MEDS: Apixaban 5 MG TABLET PO SCH (09:02)
[2018-06-12] MEDS: Nystatin POWDER 30 GM BOTTLE TP SCH (09:02)
[2018-06-12] MEDS: Diltiazem CD (24hr) 120 MG CAPSULE PO SCH (09:02)
[2018-06-12] MEDS: Potassium Chloride Elixir 20 MEQ/15 ML UDC PO SCH (09:06)
[2018-06-12] MEDS: Budesonide/Formoterol 160/4.5 1 PUFF INH IH SCH (11:04)
--- NOTE | 2018-06-12 12:11 | Discharge Summary ---
- NOTES TO OUTPATIENT PROVIDER Notes to Outpatient Provider: 1. Pt has A Fib RVR on adm, cardizem CD 120mg po daily added by cardio. Orders not resulted at time of discharge: Pending orders 06/07/18 02:51 Urinalysis Reflex Cult & Micro [URIN] Stat Date of Encounter: 06/12/18 Time of Encounter: 10:00 - Discharge Diagnosis (1) DVT prophylaxis Priority: Secondary Status: Acute (2) Acute exacerbation of COPD with asthma Priority: Primary Status: Acute (3) UTI (urinary tract infection) Priority: Primary Status: Resolved Qualifiers: Urinary tract infection type: acute cystitis Hematuria presence: without hematuria Qualified Code(s): N30.00 - Acute cystitis without hematuria (4) Morbid obesity Priority: Secondary Status: Chronic (5) Coronary artery disease Priority: Secondary Status: Chronic Qualifiers: Coronary Disease-Associated Artery/Lesion type: [place] artery [place] vs. transplanted heart: [place] heart Associated angina: without angina Qualified Code(s): I25.10 - Atherosclerotic heart disease of [place] coronary artery without angina pectoris (6) History of nephrolithiasis Priority: Secondary Status: Acute (7) Atrial fibrillation with rapid ventricular response Priority: Primary Status: Acute Hospital course: Ms. Golden is a 68 year old female present to ER for cough, SOB and palpitation. Pt was found wheezing and A Fib RVR. She was treated with cardizem drip and then switch po cardizem. Pt was found Entero/Rhino virus positive, she was treated with steroid, nebulizer, and symptomatic treatment for viral bronchitis and COPD exacerbation. As pt has steroid induced hyperglycemia, iv steroid stopped after 4 days and switched to IH steroid (symbicort). Pt has urine culture positive, sensitive to ertapenem. Pt has no dysuria, she has received 3 days of ertapenem for uncomplicated UTI and abx discontinued. After treatment, pt feels much better. PT/OT recommend ECF, will d/c pt to ECF today. I have seen and examined pt today. Still some nonproductive cough. No SOB, no wheezing. Vitals stable. Will d/c to ECF today. Discharge discussed with: patient - Time Spent with Patient Total time spent providing and/or coordinating discharge services: 30 min Less than 30 minutes - Discharge Medications Prescriptions: GuaiFENesin/Dextromethorphan [Robitussin/Dm] 10 ml PO Q6HR 7 Days #200 ml Budesonide/Formoterol 160/4.5 [Symbicort 160/4.5] 2 puff IH BIDR 30 Days #1 bottle Diltiazem CD (24hr) [Cardizem CD] 120 mg PO DAILY 30 Days #30 cap.er.24h Ipratropium/Albuterol Neb [Duoneb] 3 ml IH QIDR PRN 10 Days #40 inhsol PRN Reason: Wheezing Montelukast [Singulair] 10 mg PO HS 30 Days #30 tablet Home Medications: Aspirin Enteric Coated [Aspirin EC] 81 mg PO DAILY 04/27/18 [History] Metoprolol [Lopressor] 12.5 mg PO BID 04/27/18 [History] Apixaban [Eliquis] 5 mg PO BID #60 tablet 05/04/18 [Rx] Furosemide [Lasix] 20 mg PO BID 05/17/18 [History] Fluticasone Propionate Nasal [Flonase] 50 mcg NS DAILY 05/22/18 [History] DiphenhydraMINE [Benadryl] 25 mg PO Q8HR PRN #20 capsule 06/03/18 [Rx] Nystatin POWDER [Nystop] 1 appl TP BID bottle 06/03/18 [Rx] Lactobacillus [Culturelle] 1 each PO DAILY 06/07/18 [History] Potassium Chloride [Klor-Con 10] 10 meq PO DAILY 06/07/18 [History] Budesonide/Formoterol 160/4.5 [Symbicort 160/4.5] 2 puff IH BIDR 30 Days #1 bottle 06/12/18 [Rx] Diltiazem CD (24hr) [Cardizem CD] 120 mg PO DAILY 30 Days #30 cap.er.24h 06/12/18 [Rx] GuaiFENesin/Dextromethorphan [Robitussin/Dm] 10 ml PO Q6HR 7 Days #200 ml 06/12/18 [Rx] Ipratropium/Albuterol Neb [Duoneb] 3 ml IH QIDR PRN 10 Days #40 inhsol 06/12/18 [Rx] Montelukast [Singulair] 10 mg PO HS 30 Days #30 tablet 06/12/18 [Rx] Allergies/Adverse Reactions: Allergy/AdvReac Type Severity Reaction Status Date / Time shellfish derived Allergy Severe Anaphylaxis Verified 06/07/18 08:33 levofloxacin [From Levaquin] Allergy Hives Verified 06/07/18 08:33 Penicillins Allergy Blister Verified 06/07/18 08:33 prednisone Allergy See Verified 06/07/18 08:33 Comments Sulfa (Sulfonamide Allergy Hives Verified 06/07/18 08:33 Antibiotics) egg AdvReac Severe Throat Verified 06/07/18 08:33 swelling nitrofurantoin AdvReac Severe Bruising Verified 06/07/18 08:33 [From Macrobid] on arms Date of admission: 06/07/18 10:45 Primary care physician: PCP NONE Consults: 06/07/18 07:39 Consult to Invasive Line Access Team [CONS] Stat Reason for Consult: limited access, cardizem drip Line Type: EPIV 06/07/18 08:21 Consult to Cardiology [CONS] Routine Comment: Consulting Provider: Cardiology [facility] Reason for Consult: A.Fib with RVR Call Completed: Yes 06/07/18 08:50 Consult to Nurse Navigator [CONS] Routine Comment: 06/08/18 13:49 Consult to Physical Therapy [CONS] Routine Comment: Evaluate, develop and implement POC Reason for Consult: weakness Does patient have active BEDREST order?: No Is patient medically & hemodynamically stable?: Yes Patient assessed for mobility or mobilized this visit?: Yes 06/08/18 13:50 Consult to Occupational Therapy [CONS] Routine Comment: Evaluate, develop and implement POC Reason for Consult: weakness Does patient have active BEDREST order?: No Is patient medically & hemodynamically stable?: Yes Patient assessed for mobility or mobilized this visit?: Yes 06/08/18 14:33 Consult to Supervisor Last Model Department [CONS] Routine Reason for SW Consult: Possible ECF Discharging clinician: Radha Milton Anticipated date of discharge: 06/12/18 - Constitutional Vitals: Temp Pulse Resp BP Pulse Ox 98.4 F 69 22 106/65 96 06/12/18 07:04 06/12/18 07:04 06/12/18 07:04 06/12/18 07:04 06/12/18 07:04 General appearance: Present: A&O X 3, pleasant, no acute distress, answers questions appropriately Exam: in NAD - Head Head exam: Present: atraumatic, normocephalic - Eye Eye exam: Present: PERRL, conjuntiva pink, sclera anicteric Pupils: Present: PERRL - Neck Neck exam general surgery: Present: supple, trachea midline. Absent: lymphadenopathy - Respiratory Respiratory exam: Present: CTAB. Absent: accessory muscle use, rales, rhonchi, wheezes - Cardiovascular Cardiovascular exam: Present: RRR, +S1, +S2. Absent: diastolic murmur, gallop, rubs, systolic murmur - GI/Abdominal GI/Abdominal exam: Present: normal bowel sounds, soft, no peritoneal signs. Absent: distended, tenderness - Extremities Exam Extremities exam: Present: warm, radial pulses palpable and symmetrical. Absent: calf tenderness, cyanotic, pedal edema - Neurological Exam Neurological exam: Present: CN II-XII intact, oriented X3, no focal deficits. Absent: pronater drift, facial droop, speech deficit - Skin Skin exam: Present: dry, intact - Patient Status Disposition: Transfer SNF Condition: Fair Functional capacity at discharge: uses cane/walker Overall status at discharge: patient is progressing back to baseline - Discharge Instructions Follow Up With: Nithin Hernandez [Partnered Physician] - 06/16/18 1:45 pm - Diet and Activity Activity: as per physical therapy Diet: low fat, low cholesterol, low salt diet
--- NOTE | 2018-06-12 12:28 | Physician Discharge Referral ---
ExtendedCare Referral Info Transfer To: [facility] Provider in Charge after Transfer: Other (F physicians) - Diagnosis (1) DVT prophylaxis Status: Acute (2) Acute exacerbation of COPD with asthma Status: Acute (3) UTI (urinary tract infection) Status: Resolved (4) Morbid obesity Status: Chronic (5) Coronary artery disease Status: Chronic (6) History of nephrolithiasis Status: Acute (7) Atrial fibrillation with rapid ventricular response Status: Acute - Transfer Medications Prescriptions: GuaiFENesin/Dextromethorphan [Robitussin/Dm] 10 ml PO Q6HR 7 Days #200 ml Budesonide/Formoterol 160/4.5 [Symbicort 160/4.5] 2 puff IH BIDR 30 Days #1 bottle Diltiazem CD (24hr) [Cardizem CD] 120 mg PO DAILY 30 Days #30 cap.er.24h Ipratropium/Albuterol Neb [Duoneb] 3 ml IH QIDR PRN 10 Days #40 inhsol PRN Reason: Wheezing Montelukast [Singulair] 10 mg PO HS 30 Days #30 tablet Home Medications: Aspirin Enteric Coated [Aspirin EC] 81 mg PO DAILY 04/27/18 [History] Metoprolol [Lopressor] 12.5 mg PO BID 04/27/18 [History] Apixaban [Eliquis] 5 mg PO BID #60 tablet 05/04/18 [Rx] Furosemide [Lasix] 20 mg PO BID 05/17/18 [History] Fluticasone Propionate Nasal [Flonase] 50 mcg NS DAILY 05/22/18 [History] DiphenhydraMINE [Benadryl] 25 mg PO Q8HR PRN #20 capsule 06/03/18 [Rx] Nystatin POWDER [Nystop] 1 appl TP BID bottle 06/03/18 [Rx] Lactobacillus [Culturelle] 1 each PO DAILY 06/07/18 [History] Potassium Chloride [Klor-Con 10] 10 meq PO DAILY 06/07/18 [History] Budesonide/Formoterol 160/4.5 [Symbicort 160/4.5] 2 puff IH BIDR 30 Days #1 bottle 06/12/18 [Rx] Diltiazem CD (24hr) [Cardizem CD] 120 mg PO DAILY 30 Days #30 cap.er.24h 06/12/18 [Rx] GuaiFENesin/Dextromethorphan [Robitussin/Dm] 10 ml PO Q6HR 7 Days #200 ml 06/12/18 [Rx] Ipratropium/Albuterol Neb [Duoneb] 3 ml IH QIDR PRN 10 Days #40 inhsol 06/12/18 [Rx] Montelukast [Singulair] 10 mg PO HS 30 Days #30 tablet 06/12/18 [Rx] Allergies/Adverse Reactions: Allergy/AdvReac Type Severity Reaction Status Date / Time shellfish derived Allergy Severe Anaphylaxis Verified 06/07/18 08:33 levofloxacin [From Levaquin] Allergy Hives Verified 06/07/18 08:33 Penicillins Allergy Blister Verified 06/07/18 08:33 prednisone Allergy See Verified 06/07/18 08:33 Comments Sulfa (Sulfonamide Allergy Hives Verified 06/07/18 08:33 Antibiotics) egg AdvReac Severe Throat Verified 06/07/18 08:33 swelling nitrofurantoin AdvReac Severe Bruising Verified 06/07/18 08:33 [From Macrobid] on arms - Respiratory Orders Smoking Cessation: Smoking cessation has been advised. For more information, call the [place] Tobacco Quit Line at 2-894-ZOVW-NOW. - Advance Directives Code Status: Full Code - Rehabiliation Orders Rehab Orders: Evaluation for Physical Therapy, Evaluation for Occupational Therapy - Diet Orders Cardiac CERTIFICATION: I certify that the transfer of the above named patient to an Extended Care Facility is necessary for the continuing treatment of the diagnosis listed. The above information is true and accurate reflection of patient's current condition. Confidential - Redisclosure prohibited without a patient's written consent.
--- NOTE | 2018-06-12 12:54 | Event Note ---
Date of Encounter: 06/12/18 Time of Encounter: 12:00 Pt refused ECF discharge and decide to go home with home health and home physical therapy. Risk of fall and other risks explained to pt, she understand the risks and still wants to go home. She said she has good family support and has family member helping/supervising her 07/03. Pt is mentally clear and apparently has capacity to make her medical decision. Will d/c pt home with and home physical therapy.
--- NOTE | 2018-06-12 12:55 | Physician Discharge Referral ---
Home Health/Hosp Referral Info Transfer to: Home Health Provider in Charge Post Discharge: PCP - Diagnosis (1) DVT prophylaxis Status: Acute (2) Acute exacerbation of COPD with asthma Status: Acute (3) UTI (urinary tract infection) Status: Resolved (4) Morbid obesity Status: Chronic (5) Coronary artery disease Status: Chronic (6) History of nephrolithiasis Status: Acute (7) Atrial fibrillation with rapid ventricular response Status: Acute - Respiratory Orders Smoking Cessation: Smoking cessation has been advised. For more information, call the [place] [employer] Quit Line at 1-377-CFZR-NOW. - Diet/Nutrition Diet/Nutrition Orders: Cardiac - Services Needed Following services are medically necessary services: Nursing, Home Health Aide, Physical Therapy, Occupational Therapy - Transfer Medications Prescriptions: GuaiFENesin/Dextromethorphan [Robitussin/Dm] 10 ml PO Q6HR 7 Days #200 ml Budesonide/Formoterol 160/4.5 [Symbicort 160/4.5] 2 puff IH BIDR 30 Days #1 bottle Diltiazem CD (24hr) [Cardizem CD] 120 mg PO DAILY 30 Days #30 cap.er.24h Ipratropium/Albuterol Neb [Duoneb] 3 ml IH QIDR PRN 10 Days #40 inhsol PRN Reason: Wheezing Montelukast [Singulair] 10 mg PO HS 30 Days #30 tablet Home Medications: Aspirin Enteric Coated [Aspirin EC] 81 mg PO DAILY 04/27/18 [History] Metoprolol [Lopressor] 12.5 mg PO BID 04/27/18 [History] Apixaban [Eliquis] 5 mg PO BID #60 tablet 05/04/18 [Rx] Furosemide [Lasix] 20 mg PO BID 05/17/18 [History] Fluticasone Propionate Nasal [Flonase] 50 mcg NS DAILY 05/22/18 [History] DiphenhydraMINE [Benadryl] 25 mg PO Q8HR PRN #20 capsule 06/03/18 [Rx] Nystatin POWDER [Nystop] 1 appl TP BID bottle 06/03/18 [Rx] Lactobacillus [Culturelle] 1 each PO DAILY 06/07/18 [History] Potassium Chloride [Klor-Con 10] 10 meq PO DAILY 06/07/18 [History] Budesonide/Formoterol 160/4.5 [Symbicort 160/4.5] 2 puff IH BIDR 30 Days #1 bottle 06/12/18 [Rx] Diltiazem CD (24hr) [Cardizem CD] 120 mg PO DAILY 30 Days #30 cap.er.24h 06/12/18 [Rx] GuaiFENesin/Dextromethorphan [Robitussin/Dm] 10 ml PO Q6HR 7 Days #200 ml 06/12/18 [Rx] Ipratropium/Albuterol Neb [Duoneb] 3 ml IH QIDR PRN 10 Days #40 inhsol 06/12/18 [Rx] Montelukast [Singulair] 10 mg PO HS 30 Days #30 tablet 06/12/18 [Rx] Allergies/Adverse Reactions: Allergy/AdvReac Type Severity Reaction Status Date / Time shellfish derived Allergy Severe Anaphylaxis Verified 06/07/18 08:33 levofloxacin [From Levaquin] Allergy Hives Verified 06/07/18 08:33 Penicillins Allergy Blister Verified 06/07/18 08:33 prednisone Allergy See Verified 06/07/18 08:33 Comments Sulfa (Sulfonamide Allergy Hives Verified 06/07/18 08:33 Antibiotics) egg AdvReac Severe Throat Verified 06/07/18 08:33 swelling nitrofurantoin AdvReac Severe Bruising Verified 06/07/18 08:33 [From Macrobid] on arms Certification: Further, I certify that my clinical findings support that this patient is homebound (i.e. absences from home require considerable and taxing effort and are for medical reasons or mosque services or infrequently or short duration when for other reasons) because: Homebound Reason: Patient requires assistance of a person or device to safely leave home Attestation: My signature below is to certify that this patient is under my care and that I, or nurse practitioner, or a physician's assistant women's soccer coach working with me, has a [id number] encounter with this patient.
[2018-06-12] MEDS ORDERED: Insulin LISPRO 300 UNITS/3 ML VIAL SQ SCH (21:00)
== END 2018-06-12 16:30 | DRG 190 ==
LOC: 3BNU 01:48 → EMEROOARM 01:48 → 3BNU 06:15 → 2NNU 11:46 → 2ANU 06-10 19:41
PROVIDERS: ADMIT Internal Medicine; ATTEND Internal Medicine

== ENCOUNTER 2019-08-30 02:41 | Inpatient (IN) ==
[2019-08-30] MEDS ORDERED: 0.9 % Sodium Chloride 1,000 ML IVC ONE (03:07)
[2019-08-30] MEDS ORDERED: Azithromycin 500 MG in D5% in Water 250 ML IVPB ONE (03:12)
[2019-08-30] MEDS ORDERED: cefTRIAXone 1,000 MG in Water for inj. (sterile) 10 ML IVP ONE (03:12)
[2019-08-30] MEDS ORDERED: Isovue-370 500 ML BOTTLE IVP ONE (03:13)
[2019-08-30 04:07] LABS: Basophils % 0.2 %; Hemoglobin 12.1 g/dL (11.5-15.4); INR 1.5; Mean Corpuscular Hemoglobin 31.6 pg (28.0-33.3); Mean Platelet Volume 11.2 fL (9.4-12.4); Prothrombin Time 17.4 Seconds (9.4-12.1); Red Blood Count 3.83 M/mcL (3.82-4.97); Red Cell Distribution Width 14.6 % (11.5-14.5)
[2019-08-30 04:07] LABS: Bilirubin,Urine Small (Negative); Blood,Urine Large (Negative); Clarity,Urine Cloudy (Clear); Color,Urine Dark Yellow (Yellow); Glucose,Urine (UA) Normal (Normal); Ketones,Urine Negative (Negative); Leukocyte Esterase,Urine Small (Negative); Nitrite,Urine Positive (Negative); PH,Urine 5.5 pH Units (5.0-8.0); Protein,Urine 100 mg/dL (Neg-Trace); Specific Gravity,Urine 1.025 (1.010-1.025); Urobilinogen,Urine Normal (Normal)
[2019-08-30 04:08] LABS: Hematocrit 35.5 % (35.3-44.9); Immature Granulocytes % 0.2 % (0-4); Immature Platelets 3.8 % (1.1-6.1); Lymphocytes # 0.5 K/mcL (0.6-4.6); Lymphocytes % 10.6 %; Mean Corpuscular HGB Conc 34.1 g/dL (31.6-35.5); Mean Corpuscular Volume 92.7 fL (83.0-100.0); Monocytes # 0.3 K/mcL (0.0-1.3); Neutrophils # 3.6 K/mcL (1.6-8.9); White Blood Count 4.4 K/mcL (4.3-11.1)
[2019-08-30 04:10] LABS: Bacteria,Urine Many per hpf (None-Few); Hyaline Casts,Urine None Seen per lpf (None-Few); Squamous Epithelial Cell,Urine Moderate per lpf (None-Few); WBC,Urine 15-30 per hpf (0-3)
[2019-08-30 04:30] LABS: Alanine Aminotransferase 34 Units/L (7-52); Albumin 3.6 g/dL (3.5-5.7); Alkaline Phosphatase 128 Units/L (34-104); Aspartate Amino Transferase 54 Units/L (13-39); BUN/Creatinine Ratio 27 (6-26); Bilirubin,Direct 0.4 mg/dL (0.0-0.2); Bilirubin,Indirect 0.8 mg/dL (0.0-1.0); Bilirubin,Total 1.2 mg/dL (0.3-1.0); Blood Urea Nitrogen 22 mg/dL (8-23); Calcium 8.8 mg/dL (8.6-10.3); Carbon Dioxide 22 mEq/L (23-29); Chloride 102 mEq/L (98-107); Globulin 3.7 g/dL (2.4-3.5); Glucose 147 mg/dL (70-105); Magnesium 1.8 mg/dL (1.6-2.6); Osmolality,Calculated 284 (280-300); Phosphorous 2.5 mg/dL (2.7-4.5); Potassium 4.4 mEq/L (3.5-5.1); Sodium 134 mEq/L (136-145); Total Protein 7.3 g/dL (6.4-8.9); Troponin I 0.05 ng/mL (< 0.04); eGFR For African Americans > 60 (> 60); eGFR For Non-African Americans > 60 (> 60)
[2019-08-30 04:32] LABS: RBC,Urine 0-3 per hpf (0-3)
[2019-08-30 04:37] LABS: Platelet Count 51 K/mcL (140-400)
[2019-08-30] MEDS ORDERED: Aspirin 325 MG TABLET PO ONE (06:02)
[2019-08-30] MEDS ORDERED: Ipratropium/Albuterol Neb 3 ML IH ONE (06:40)
[2019-08-30] MEDS ORDERED: Naloxone 0.4 MG/ML INJ IVP PRN (07:30)
[2019-08-30] MEDS ORDERED: MethylPREDNISolone 40 MG/ML VIAL IVP ONE (08:59)
[2019-08-30] MEDS ORDERED: Furosemide 40 MG TABLET PO SCH (09:00)
[2019-08-30] MEDS: Furosemide 40 MG/4 ML VIAL IVP SCH ×2 (10:44→22:14)
[2019-08-30] MEDS: Ipratropium/Albuterol Neb 3 ML IH SCH ×4 (11:26→19:43)
[2019-08-30] MEDS: Budesonide/Formoterol 160/4.5 1 PUFF INH IH SCH ×2 (11:26→19:46)
[2019-08-30] MEDS: Apixaban 2.5 MG TABLET PO SCH ×2 (11:45→22:14)
[2019-08-31] MEDS: Ipratropium/Albuterol Neb 3 ML IH SCH ×7 (00:07→23:45)
[2019-08-31] MEDS: Azithromycin 500 MG in 0.9 % Sodium Chloride 250 ML IVPB SCH (03:59)
[2019-08-31] MEDS: cefTRIAXone 1,000 MG in Water for inj. (sterile) 10 ML IVP SCH ×2 (03:59→10:30)
[2019-08-31] MEDS ORDERED: *HR* Promethazine 25 MG/ML VIAL IVP ONE (04:41)
[2019-08-31 06:36] LABS: Immature Granulocytes % 0.3 % (0-4); Red Cell Distribution Width 14.6 % (11.5-14.5)
[2019-08-31 06:38] LABS: Basophils % 0.3 %; Hematocrit 35.1 % (35.3-44.9); Hemoglobin 11.8 g/dL (11.5-15.4); Immature Platelets 5.8 % (1.1-6.1); Lymphocytes # 0.6 K/mcL (0.6-4.6); Lymphocytes % 20.8 %; Mean Corpuscular HGB Conc 33.6 g/dL (31.6-35.5); Mean Corpuscular Hemoglobin 31.1 pg (28.0-33.3); Mean Corpuscular Volume 92.4 fL (83.0-100.0); Mean Platelet Volume 11.7 fL (9.4-12.4); Monocytes # 0.2 K/mcL (0.0-1.3); Monocytes % 8.3 %; Segmented Neutrophils % 70.3 %; White Blood Count 2.9 K/mcL (4.3-11.1)
[2019-08-31 06:47] LABS: Platelet Count 47 K/mcL (140-400)
[2019-08-31 07:03] LABS: BUN/Creatinine Ratio 31 (6-26); Blood Urea Nitrogen 27 mg/dL (8-23); Calcium 7.8 mg/dL (8.6-10.3); Carbon Dioxide 25 mEq/L (23-29); Chloride 100 mEq/L (98-107); Glucose 115 mg/dL (70-105); Magnesium 1.7 mg/dL (1.6-2.6); Osmolality,Calculated 284 (280-300); Phosphorous 3.7 mg/dL (2.7-4.5); Potassium 3.9 mEq/L (3.5-5.1); Sodium 134 mEq/L (136-145); eGFR For African Americans > 60 (> 60); eGFR For Non-African Americans > 60 (> 60)
[2019-08-31] MEDS: Budesonide/Formoterol 160/4.5 1 PUFF INH IH SCH ×2 (07:19→10:54)
[2019-08-31] MEDS: Furosemide 40 MG/4 ML VIAL IVP SCH ×2 (10:31→22:37)
[2019-08-31] MEDS: Apixaban 2.5 MG TABLET PO SCH ×2 (10:31→22:38)
[2019-08-31] MEDS: MethylPREDNISolone 40 MG/ML VIAL IVP SCH (17:23)
[2019-08-31] MEDS: Acetaminophen 325 MG TABLET PO PRN (22:39)
[2019-09-01 02:48] LABS: Mean Platelet Volume 12.3 fL (9.4-12.4)
[2019-09-01 02:49] LABS: Hematocrit 35.9 % (35.3-44.9); Hemoglobin 11.9 g/dL (11.5-15.4); Mean Corpuscular HGB Conc 33.1 g/dL (31.6-35.5); Mean Corpuscular Hemoglobin 30.9 pg (28.0-33.3); Mean Corpuscular Volume 93.2 fL (83.0-100.0); Red Blood Count 3.85 M/mcL (3.82-4.97); Red Cell Distribution Width 14.5 % (11.5-14.5); White Blood Count 1.4 K/mcL (4.3-11.1)
[2019-09-01 02:55] LABS: Platelet Count 56 K/mcL (140-400)
[2019-09-01 03:08] LABS: BUN/Creatinine Ratio 30 (6-26); Blood Urea Nitrogen 32 mg/dL (8-23); Calcium 7.7 mg/dL (8.6-10.3); Carbon Dioxide 24 mEq/L (23-29); Chloride 101 mEq/L (98-107); Glucose 226 mg/dL (70-105); Osmolality,Calculated 298 (280-300); Potassium 4.1 mEq/L (3.5-5.1); Sodium 137 mEq/L (136-145); eGFR For African Americans > 60 (> 60); eGFR For Non-African Americans 51 (> 60)
[2019-09-01] MEDS: Ipratropium/Albuterol Neb 3 ML IH SCH ×6 (03:49→23:03)
[2019-09-01] MEDS: Azithromycin 500 MG in 0.9 % Sodium Chloride 250 ML IVPB SCH (05:21)
[2019-09-01] MEDS: MethylPREDNISolone 40 MG/ML VIAL IVP SCH ×2 (05:22→18:03)
[2019-09-01] MEDS: Budesonide/Formoterol 160/4.5 1 PUFF INH IH SCH ×2 (07:47→20:35)
[2019-09-01 08:32] LABS: Immature Granulocytes % 0.7 % (0-4); Lymphocytes # 0.2 K/mcL (0.6-4.6); Lymphocytes % 15.7 %; Monocytes # 0.1 K/mcL (0.0-1.3); Monocytes % 5.7 %; Neutrophils # 1.1 K/mcL (1.6-8.9); Segmented Neutrophils % 77.9 %
[2019-09-01 08:58] LABS: Platelet Estimate Decreased (Normal); Tear Drop Cells 2+ (Not Present)
[2019-09-01 08:59] LABS: Anisocytosis 1+ (Not Present)
[2019-09-01] MEDS: Furosemide 40 MG/4 ML VIAL IVP SCH ×2 (09:50→20:46)
[2019-09-01] MEDS: cefTRIAXone 1,000 MG in Water for inj. (sterile) 10 ML IVP SCH (09:50)
[2019-09-01] MEDS: Apixaban 5 MG TABLET PO SCH (20:46)
[2019-09-02] MEDS: Azithromycin 500 MG in 0.9 % Sodium Chloride 250 ML IVPB SCH (04:19)
[2019-09-02] MEDS: Acetaminophen 325 MG TABLET PO PRN (04:21)
[2019-09-02] MEDS: Ipratropium/Albuterol Neb 3 ML IH SCH ×6 (04:24→23:25)
[2019-09-02] MEDS: MethylPREDNISolone 40 MG/ML VIAL IVP SCH ×2 (05:38→17:36)
[2019-09-02 07:28] LABS: Hematocrit 39.6 % (35.3-44.9); Hemoglobin 13.1 g/dL (11.5-15.4); Mean Corpuscular HGB Conc 33.1 g/dL (31.6-35.5); Mean Corpuscular Hemoglobin 30.5 pg (28.0-33.3); Mean Corpuscular Volume 92.1 fL (83.0-100.0); Mean Platelet Volume 12.5 fL (9.4-12.4); Red Cell Distribution Width 13.9 % (11.5-14.5)
[2019-09-02 07:29] LABS: Platelet Count 70 K/mcL (140-400); White Blood Count 2.6 K/mcL (4.3-11.1)
[2019-09-02 07:45] LABS: BUN/Creatinine Ratio 40 (6-26); Blood Urea Nitrogen 36 mg/dL (8-23); Calcium 8.3 mg/dL (8.6-10.3); Carbon Dioxide 28 mEq/L (23-29); Chloride 104 mEq/L (98-107); Glucose 207 mg/dL (70-105); Osmolality,Calculated 304 (280-300); Potassium 4.1 mEq/L (3.5-5.1); Sodium 140 mEq/L (136-145); eGFR For African Americans > 60 (> 60); eGFR For Non-African Americans > 60 (> 60)
[2019-09-02] MEDS: Budesonide/Formoterol 160/4.5 1 PUFF INH IH SCH (07:49)
[2019-09-02] MEDS: Apixaban 5 MG TABLET PO SCH ×2 (10:22→21:56)
[2019-09-02] MEDS: cefTRIAXone 1,000 MG in Water for inj. (sterile) 10 ML IVP SCH (10:23)
[2019-09-02] MEDS: Furosemide 40 MG/4 ML VIAL IVP SCH (10:23)
[2019-09-03] MEDS: Ipratropium/Albuterol Neb 3 ML IH SCH ×4 (04:09→15:39)
[2019-09-03] MEDS: MethylPREDNISolone 40 MG/ML VIAL IVP SCH (06:10)
[2019-09-03 06:54] LABS: Hemoglobin 12.2 g/dL (11.5-15.4)
[2019-09-03 06:55] LABS: Hematocrit 37.2 % (35.3-44.9); Immature Platelets 6.1 % (1.1-6.1); Mean Corpuscular HGB Conc 32.8 g/dL (31.6-35.5); Mean Corpuscular Hemoglobin 31.2 pg (28.0-33.3); Mean Corpuscular Volume 95.1 fL (83.0-100.0); Mean Platelet Volume 12.3 fL (9.4-12.4); Red Blood Count 3.91 M/mcL (3.82-4.97); Red Cell Distribution Width 13.9 % (11.5-14.5); White Blood Count 3.3 K/mcL (4.3-11.1)
[2019-09-03 07:11] LABS: BUN/Creatinine Ratio 50 (6-26); Blood Urea Nitrogen 40 mg/dL (8-23); Calcium 8.3 mg/dL (8.6-10.3); Carbon Dioxide 29 mEq/L (23-29); Chloride 104 mEq/L (98-107); Glucose 172 mg/dL (70-105); Osmolality,Calculated 308 (280-300); Sodium 142 mEq/L (136-145); eGFR For African Americans > 60 (> 60); eGFR For Non-African Americans > 60 (> 60)
[2019-09-03] MEDS: Apixaban 5 MG TABLET PO SCH (08:35)
[2019-09-03] MEDS ORDERED: Azithromycin 250 MG TABLET PO SCH (09:00)
[2019-09-03] MEDS ORDERED: Furosemide 40 MG TABLET PO SCH (09:00)
[2019-09-03 14:34] VITALS: BP 100/62
[2019-09-03] MEDS: Acetaminophen 325 MG TABLET PO PRN (15:44)
== END 2019-09-03 16:52 | disposition home health service (06) | DRG 871 ==
LOC: CDU 02:41 → EMEROOARM 02:41 → SUATTDRO 06:50 → CDU 07:39 → 3ANU 18:48
PROVIDERS: ADMIT Internal Medicine; ATTEND Family Medicine

== ENCOUNTER 2019-10-26 09:49 | Inpatient (IN) ==
[2019-10-26 11:00] LABS: Basophils % 0.8 %; Eosinophils # 0.6 K/mcL (0.0-0.6); Hematocrit 39.2 % (35.3-44.9); Hemoglobin 12.7 g/dL (11.5-15.4); Immature Granulocytes % 0.2 % (0-4); Lymphocytes % 37.6 %; Mean Corpuscular HGB Conc 32.4 g/dL (31.6-35.5); Mean Corpuscular Hemoglobin 30.5 pg (28.0-33.3); Mean Platelet Volume 11.7 fL (9.4-12.4); Monocytes # 0.4 K/mcL (0.0-1.3); Monocytes % 8.3 %; Neutrophils # 2.2 K/mcL (1.6-8.9); Red Blood Count 4.17 M/mcL (3.82-4.97); Segmented Neutrophils % 42.1 %; White Blood Count 5.2 K/mcL (4.3-11.1)
[2019-10-26 11:01] LABS: Platelet Count 91 K/mcL (140-400)
[2019-10-26 11:18] LABS: Alanine Aminotransferase 12 Units/L (7-52); Albumin 3.7 g/dL (3.5-5.7); Albumin/Globulin Ratio 0.9 (1.1-2.2); Alkaline Phosphatase 118 Units/L (34-104); Aspartate Amino Transferase 22 Units/L (13-39); BUN/Creatinine Ratio 28 (6-26); Bilirubin,Total 1.1 mg/dL (0.3-1.0); Blood Urea Nitrogen 24 mg/dL (8-23); Calcium 9.2 mg/dL (8.6-10.3); Carbon Dioxide 28 mEq/L (23-29); Chloride 110 mEq/L (98-107); Globulin 3.9 g/dL (2.4-3.5); Glucose 145 mg/dL (70-105); Osmolality,Calculated 289 (280-300); Potassium 3.4 mEq/L (3.5-5.1); Sodium 136 mEq/L (136-145); Total Protein 7.6 g/dL (6.4-8.9); eGFR For African Americans > 60 (> 60); eGFR For Non-African Americans > 60 (> 60)
[2019-10-26] MEDS ORDERED: Clindamycin 900 MG/50 ML 900 MG/50 ML IV.SOLN IVPB ONE (12:38)
[2019-10-26] MEDS ORDERED: Naloxone 0.4 MG/ML INJ IVP PRN (13:45)
[2019-10-26] MEDS ORDERED: Vancomycin 1,750 MG in 0.9 % Sodium Chloride 250 ML IVPB SCH (14:00)
[2019-10-26] MEDS: cefTRIAXone 1,000 MG in Water for inj. (sterile) 10 ML IVP SCH (14:47)
[2019-10-26] MEDS ORDERED: Potassium Chloride Elixir 20 MEQ/15 ML UDC PO ONE (14:54)
[2019-10-26] MEDS: *HR* HYDROcodone/Acet 5/325 mg TABLET PO PRN (19:33)
[2019-10-27 02:16] LABS: Adenovirus Not Detected (Not Detect); Bordetella Pertussis Not Detected (Not Detect); Chlamydophila pneumoniae Not Detected (Not Detect); Coronavirus 229E Not Detected (Not Detect); Coronavirus HKU1 Not Detected (Not Detect); Coronavirus NL63 Not Detected (Not Detect); Coronavirus OC43 Not Detected (Not Detect); Human Metapneumovirus Not Detected (Not Detect); Human Rhinovirus/Enterovirus Not Detected (Not Detect); Influenza A Subtype 2009 H1 Not Detected (Not Detect); Influenza B Not Detected (Not Detect); Mycoplasma pneumoniae Not Detected (Not Detect); Parainfluenza Virus 1 Not Detected (Not Detect); Parainfluenza Virus 2 Not Detected (Not Detect); Parainfluenza Virus 3 Not Detected (Not Detect); Parainfluenza Virus 4 Not Detected (Not Detect); Respiratory Syncytial Virus Not Detected (Not Detect)
[2019-10-27] MEDS ORDERED: tiZANidine 4 MG TABLET PO ONE (03:41)
[2019-10-27 05:14] LABS: Basophils % 0.5 %; Hematocrit 32.5 % (35.3-44.9); Immature Granulocytes % 0.3 % (0-4); Mean Corpuscular HGB Conc 32.3 g/dL (31.6-35.5)
[2019-10-27 05:16] LABS: Eosinophils # 0.4 K/mcL (0.0-0.6); Eosinophils % 10.7 %; Hemoglobin 10.5 g/dL (11.5-15.4); Immature Platelets 4.3 % (1.1-6.1); Lymphocytes # 1.3 K/mcL (0.6-4.6); Mean Corpuscular Volume 92.9 fL (83.0-100.0); Mean Platelet Volume 11.8 fL (9.4-12.4); Monocytes # 0.4 K/mcL (0.0-1.3); Monocytes % 9.5 %; Neutrophils # 1.8 K/mcL (1.6-8.9); White Blood Count 3.9 K/mcL (4.3-11.1)
[2019-10-27 05:22] LABS: Platelet Count 74 K/mcL (140-400)
[2019-10-27 05:23] LABS: Platelet Estimate Decreased (Normal)
[2019-10-27 05:32] LABS: BUN/Creatinine Ratio 24 (6-26); Blood Urea Nitrogen 22 mg/dL (8-23); Calcium 8.2 mg/dL (8.6-10.3); Carbon Dioxide 27 mEq/L (23-29); Chloride 111 mEq/L (98-107); Glucose 134 mg/dL (70-105); Magnesium 1.8 mg/dL (1.6-2.6); Osmolality,Calculated 295 (280-300); Phosphorous 3.9 mg/dL (2.7-4.5); Potassium 3.8 mEq/L (3.5-5.1); Sodium 140 mEq/L (136-145); eGFR For African Americans > 60 (> 60); eGFR For Non-African Americans > 60 (> 60)
[2019-10-27] MEDS ORDERED: Apixaban 5 MG TABLET PO SCH (09:00)
[2019-10-27] MEDS ORDERED: Furosemide 20 MG/2 ML VIAL IVP SCH (09:00)
[2019-10-27] MEDS ORDERED: Aspirin 81 MG TAB.CHEW ONE (10:35)
[2019-10-27] MEDS ORDERED: D5% in Water 1,000 ML IVC PRN (14:22)
[2019-10-27] MEDS ORDERED: Dextrose Gel 15 GM/37.5 ML TUBE PO PRN ×2 (14:22)
[2019-10-27] MEDS ORDERED: *HR* Dextrose 50 % in Water (Syg) 50 ML SYRINGE IVP PRN (14:22)
[2019-10-27] MEDS ORDERED: *HR* Heparin 5,000 UNIT/ML VIAL ONE ×2 (14:23)
[2019-10-27] MEDS ORDERED: Insulin LISPRO 300 UNITS/3 ML VIAL SQ SCH ×2 (16:30→21:00)
[2019-10-27] MEDS: cefTRIAXone 1,000 MG in Water for inj. (sterile) 10 ML IVP SCH (16:38)
[2019-10-27] MEDS: *HR* Heparin 5,000 UNIT/ML VIAL SQ SCH (17:15)
[2019-10-27] MEDS: *HR* HYDROcodone/Acet 5/325 mg TABLET PO PRN (19:31)
[2019-10-28 01:17] LABS: Immature Granulocytes % 0.3 % (0-4); Mean Platelet Volume 12.2 fL (9.4-12.4)
[2019-10-28 01:19] LABS: Basophils % 0.3 %; Eosinophils # 0.6 K/mcL (0.0-0.6); Eosinophils % 15.3 %; Hematocrit 35.8 % (35.3-44.9); Hemoglobin 11.5 g/dL (11.5-15.4); Immature Platelets 5.2 % (1.1-6.1); Lymphocytes # 1.2 K/mcL (0.6-4.6); Lymphocytes % 30.3 %; Mean Corpuscular HGB Conc 32.1 g/dL (31.6-35.5); Mean Corpuscular Hemoglobin 30.4 pg (28.0-33.3); Mean Corpuscular Volume 94.7 fL (83.0-100.0); Monocytes # 0.3 K/mcL (0.0-1.3); Monocytes % 8.9 %; Neutrophils # 1.7 K/mcL (1.6-8.9); Red Blood Count 3.78 M/mcL (3.82-4.97); Segmented Neutrophils % 44.9 %; White Blood Count 3.8 K/mcL (4.3-11.1)
[2019-10-28 01:24] LABS: Platelet Count 71 K/mcL (140-400)
[2019-10-28 01:25] LABS: Platelet Estimate Decreased (Normal)
[2019-10-28 01:35] LABS: BUN/Creatinine Ratio 28 (6-26); Blood Urea Nitrogen 24 mg/dL (8-23); Calcium 8.3 mg/dL (8.6-10.3); Carbon Dioxide 25 mEq/L (23-29); Chloride 109 mEq/L (98-107); Glucose 174 mg/dL (70-105); Osmolality,Calculated 296 (280-300); Sodium 139 mEq/L (136-145); eGFR For African Americans > 60 (> 60); eGFR For Non-African Americans > 60 (> 60)
[2019-10-28] MEDS: *HR* HYDROcodone/Acet 5/325 mg TABLET PO PRN ×3 (02:56→20:02)
[2019-10-28] MEDS: *HR* Heparin 5,000 UNIT/ML VIAL SQ SCH ×2 (05:44→17:49)
[2019-10-28] MEDS ORDERED: Albuterol 2.5 MG/3 ML NEBULIZER IH PRN (07:35)
[2019-10-28] MEDS: cefTRIAXone 1,000 MG in Water for inj. (sterile) 10 ML IVP SCH (08:23)
[2019-10-28] MEDS: Aspirin 81 MG TAB.CHEW PO SCH (08:23)
[2019-10-28] MEDS: Bumetanide 1 MG TABLET PO SCH (13:02)
[2019-10-29 04:02] LABS: Hemoglobin 10.9 g/dL (11.5-15.4); Immature Granulocytes % 0.2 % (0-4)
[2019-10-29 04:04] LABS: Basophils % 0.6 %; Eosinophils # 0.7 K/mcL (0.0-0.6); Hematocrit 33.6 % (35.3-44.9); Immature Platelets 4.1 % (1.1-6.1); Lymphocytes # 1.4 K/mcL (0.6-4.6); Lymphocytes % 29.4 %; Mean Corpuscular HGB Conc 32.4 g/dL (31.6-35.5); Mean Corpuscular Volume 92.6 fL (83.0-100.0); Mean Platelet Volume 10.8 fL (9.4-12.4); Monocytes # 0.4 K/mcL (0.0-1.3); Red Blood Count 3.63 M/mcL (3.82-4.97); Red Cell Distribution Width 13.8 % (11.5-14.5); Segmented Neutrophils % 46.8 %; White Blood Count 4.8 K/mcL (4.3-11.1)
[2019-10-29 04:09] LABS: Neutrophils # 2.3 K/mcL (1.6-8.9); Platelet Count 77 K/mcL (140-400)
[2019-10-29 04:54] LABS: BUN/Creatinine Ratio 25 (6-26); Blood Urea Nitrogen 20 mg/dL (8-23); Calcium 8.2 mg/dL (8.6-10.3); Carbon Dioxide 26 mEq/L (23-29); Chloride 108 mEq/L (98-107); Glucose 108 mg/dL (70-105); Osmolality,Calculated 291 (280-300); Potassium 4.2 mEq/L (3.5-5.1); Sodium 139 mEq/L (136-145); eGFR For African Americans > 60 (> 60); eGFR For Non-African Americans > 60 (> 60)
[2019-10-29] MEDS: *HR* HYDROcodone/Acet 5/325 mg TABLET PO PRN (05:32)
[2019-10-29] MEDS: *HR* Heparin 5,000 UNIT/ML VIAL SQ SCH (05:33)
[2019-10-29 06:57] VITALS: BP 109/68
[2019-10-29] MEDS: Aspirin 81 MG TAB.CHEW PO SCH (10:45)
[2019-10-29] MEDS: cefTRIAXone 1,000 MG in Water for inj. (sterile) 10 ML IVP SCH (10:45)
[2019-10-29] MEDS: Bumetanide 1 MG TABLET PO SCH ×2 (10:45→10:47)
[2019-10-29] MEDS ORDERED: Aminoglycoside Consult 1 EACH MC ONE (13:21)
== END 2019-10-29 13:22 | disposition home or self-care (01) | DRG 603 ==
LOC: EMEROOARM 09:49 → 3ANU 09:49 → SUATTDRO 15:19 → 3ANU 16:05
PROVIDERS: ADMIT Family Medicine; ATTEND Internal Medicine

== ENCOUNTER 2020-01-08 08:33 | Inpatient (IN) ==
[2020-01-08] MEDS ORDERED: Cefepime HCl 1,000 MG in Water for inj. (sterile) 10 ML IVP STA (08:55)
[2020-01-08] MEDS ORDERED: Vancomycin 1,750 MG in 0.9 % Sodium Chloride 250 ML IVPB ONE (08:55)
[2020-01-08] MEDS ORDERED: Vancomycin 1,750 MG/517.5 ML IV.SOLN IVPB ONE (09:00)
[2020-01-08 09:13] LABS: Hematocrit 38.6 % (35.3-44.9); Hemoglobin 12.5 g/dL (11.5-15.4); Immature Platelets 4.1 % (1.1-6.1); Mean Corpuscular HGB Conc 32.4 g/dL (31.6-35.5); Mean Corpuscular Volume 92.6 fL (83.0-100.0); Mean Platelet Volume 11.3 fL (9.4-12.4); Red Blood Count 4.17 M/mcL (3.82-4.97); White Blood Count 13.5 K/mcL (4.3-11.1)
[2020-01-08 09:28] LABS: BUN/Creatinine Ratio 22 (6-26); Blood Urea Nitrogen 19 mg/dL (8-23); Calcium 8.9 mg/dL (8.6-10.3); Carbon Dioxide 25 mEq/L (23-29); Chloride 107 mEq/L (98-107); Glucose 158 mg/dL (70-105); Osmolality,Calculated 294 (280-300); Potassium 4.2 mEq/L (3.5-5.1); Sodium 139 mEq/L (136-145); eGFR For African Americans > 60 (> 60); eGFR For Non-African Americans > 60 (> 60)
[2020-01-08] MEDS: Ondansetron 4 MG/2 ML VIAL IVP ONE ×2 (09:30→09:45)
[2020-01-08] MEDS ORDERED: *HR* Promethazine 25 MG/ML VIAL IVP ONE (09:56)
[2020-01-08] MEDS ORDERED: Ondansetron ODT 4 MG TAB.RAPDIS SL PRN (11:20)
[2020-01-08] MEDS ORDERED: Naloxone 0.4 MG/ML INJ IVP PRN (11:20)
[2020-01-08] MEDS ORDERED: Vancomycin 1,750 MG in 0.9 % Sodium Chloride 250 ML IVPB SCH (14:00)
[2020-01-08] MEDS: *HR* Heparin 5,000 UNIT/ML VIAL SQ SCH ×2 (15:07→22:20)
[2020-01-08] MEDS: Acetaminophen 325 MG TABLET PO PRN ×2 (15:07→22:19)
[2020-01-08] MEDS: Vancomycin 1,750 MG/517.5 ML IV.SOLN IVPB SCH (22:19)
[2020-01-09] MEDS: *HR* Heparin 5,000 UNIT/ML VIAL SQ SCH ×3 (05:06→20:31)
[2020-01-09] MEDS: Aspirin Enteric Coated 81 MG Tablet PO SCH (09:27)
[2020-01-09] MEDS: Vancomycin 1,750 MG/517.5 ML IV.SOLN IVPB SCH ×3 (09:27→20:45)
[2020-01-09] MEDS: Bumetanide 1 MG TABLET PO SCH (09:27)
[2020-01-09 10:23] LABS: Basophils % 0.2 %; Eosinophils # 0.2 K/mcL (0.0-0.6); Hematocrit 35.2 % (35.3-44.9); Hemoglobin 11.4 g/dL (11.5-15.4); Immature Granulocytes % 0.4 % (0-4); Lymphocytes # 1.1 K/mcL (0.6-4.6); Lymphocytes % 13.1 %; Mean Corpuscular HGB Conc 32.4 g/dL (31.6-35.5); Mean Corpuscular Hemoglobin 30.4 pg (28.0-33.3); Mean Corpuscular Volume 93.9 fL (83.0-100.0); Mean Platelet Volume 11.1 fL (9.4-12.4); Monocytes # 0.5 K/mcL (0.0-1.3); Monocytes % 5.5 %; Red Blood Count 3.75 M/mcL (3.82-4.97); Red Cell Distribution Width 14.3 % (11.5-14.5); Segmented Neutrophils % 78.8 %; White Blood Count 8.6 K/mcL (4.3-11.1)
[2020-01-09 10:24] LABS: Neutrophils # 6.8 K/mcL (1.6-8.9); Platelet Count 56 K/mcL (140-400)
[2020-01-09 10:43] LABS: BUN/Creatinine Ratio 31 (6-26); Blood Urea Nitrogen 29 mg/dL (8-23); Carbon Dioxide 25 mEq/L (23-29); Chloride 108 mEq/L (98-107); Glucose 144 mg/dL (70-105); Osmolality,Calculated 294 (280-300); Potassium 3.8 mEq/L (3.5-5.1); Sodium 138 mEq/L (136-145); eGFR For African Americans > 60 (> 60); eGFR For Non-African Americans 60 (> 60)
[2020-01-09] MEDS ORDERED: cefTRIAXone 1,000 MG in Water for inj. (sterile) 10 ML IVPB SCH (12:00)
[2020-01-09] MEDS: Miconazole 2% ointment 141 APPL/141 GM TUBE TP SCH (16:30)
[2020-01-09] MEDS: Acetaminophen 325 MG TABLET PO PRN (16:56)
[2020-01-09] MEDS ORDERED: Bumetanide 1 MG TABLET PO ONE (21:00)
[2020-01-10 03:10] LABS: Hemoglobin 11.2 g/dL (11.5-15.4)
[2020-01-10 03:12] LABS: Basophils % 0.5 %; Eosinophils # 0.6 K/mcL (0.0-0.6); Eosinophils % 7.7 %; Hematocrit 33.5 % (35.3-44.9); Immature Granulocytes % 0.3 % (0-4); Immature Platelets 4.4 % (1.1-6.1); Lymphocytes # 1.3 K/mcL (0.6-4.6); Lymphocytes % 16.8 %; Mean Corpuscular HGB Conc 33.4 g/dL (31.6-35.5); Mean Corpuscular Hemoglobin 31.2 pg (28.0-33.3); Mean Corpuscular Volume 93.3 fL (83.0-100.0); Mean Platelet Volume 12.1 fL (9.4-12.4); Monocytes # 0.6 K/mcL (0.0-1.3); Monocytes % 7.3 %; Neutrophils # 5.2 K/mcL (1.6-8.9); Red Blood Count 3.59 M/mcL (3.82-4.97); Red Cell Distribution Width 14.1 % (11.5-14.5); Segmented Neutrophils % 67.4 %; White Blood Count 7.7 K/mcL (4.3-11.1)
[2020-01-10 03:15] LABS: Platelet Count 63 K/mcL (140-400)
[2020-01-10 03:30] LABS: BUN/Creatinine Ratio 29 (6-26); Blood Urea Nitrogen 30 mg/dL (8-23); Calcium 7.8 mg/dL (8.6-10.3); Carbon Dioxide 25 mEq/L (23-29); Chloride 109 mEq/L (98-107); Glucose 118 mg/dL (70-105); Osmolality,Calculated 297 (280-300); Potassium 3.9 mEq/L (3.5-5.1); Sodium 140 mEq/L (136-145); eGFR For African Americans > 60 (> 60); eGFR For Non-African Americans 54 (> 60)
[2020-01-10] MEDS: *HR* Heparin 5,000 UNIT/ML VIAL SQ SCH ×2 (06:42→14:20)
[2020-01-10] MEDS: Miconazole 2% ointment 141 APPL/141 GM TUBE TP SCH (08:33)
[2020-01-10] MEDS: cefTRIAXone 1,000 MG in Water for inj. (sterile) 10 ML IVP SCH (08:34)
[2020-01-10] MEDS: Aspirin Enteric Coated 81 MG Tablet PO SCH (08:34)
[2020-01-10] MEDS: Bumetanide 1 MG TABLET PO SCH (08:34)
[2020-01-10] MEDS ORDERED: *HR* OxyCODONE/APAP 5/325 TABLET PO PRN (12:26)
[2020-01-10] MEDS: Acetaminophen 325 MG TABLET PO PRN (20:42)
[2020-01-10] MEDS: Levalbuterol Neb 1.25 MG/3 ML IH PRN (22:20)
[2020-01-11 04:21] LABS: Immature Granulocytes % 0.2 % (0-4)
[2020-01-11 04:23] LABS: Basophils % 0.2 %; Eosinophils # 0.5 K/mcL (0.0-0.6); Eosinophils % 9.4 %; Hematocrit 35.3 % (35.3-44.9); Hemoglobin 11.5 g/dL (11.5-15.4); Immature Platelets 3.9 % (1.1-6.1); Lymphocytes # 1.5 K/mcL (0.6-4.6); Lymphocytes % 26.8 %; Mean Corpuscular HGB Conc 32.6 g/dL (31.6-35.5); Mean Corpuscular Hemoglobin 30.4 pg (28.0-33.3); Mean Corpuscular Volume 93.4 fL (83.0-100.0); Mean Platelet Volume 11.1 fL (9.4-12.4); Monocytes # 0.5 K/mcL (0.0-1.3); Monocytes % 8.3 %; Red Blood Count 3.78 M/mcL (3.82-4.97); Segmented Neutrophils % 55.1 %; White Blood Count 5.4 K/mcL (4.3-11.1)
[2020-01-11 04:24] LABS: Platelet Count 64 K/mcL (140-400)
[2020-01-11 04:34] LABS: BUN/Creatinine Ratio 31 (6-26); Blood Urea Nitrogen 27 mg/dL (8-23); Calcium 7.9 mg/dL (8.6-10.3); Carbon Dioxide 26 mEq/L (23-29); Chloride 108 mEq/L (98-107); Glucose 155 mg/dL (70-105); Osmolality,Calculated 296 (280-300); Potassium 3.8 mEq/L (3.5-5.1); Sodium 139 mEq/L (136-145); eGFR For African Americans > 60 (> 60); eGFR For Non-African Americans > 60 (> 60)
[2020-01-11] MEDS: *HR* Enoxaparin 40 MG/0.4 ML SYRINGE SQ SCH (05:29)
[2020-01-11] MEDS: Vancomycin 1,250 MG/262.5 ML IV.SOLN IVPB SCH (05:30)
[2020-01-11] MEDS: Acetaminophen 325 MG TABLET PO PRN ×2 (05:36→22:05)
[2020-01-11] MEDS: cefTRIAXone 1,000 MG in Water for inj. (sterile) 10 ML IVP SCH (08:45)
[2020-01-11] MEDS: Aspirin Enteric Coated 81 MG Tablet PO SCH (08:46)
[2020-01-11] MEDS: Miconazole 2% ointment 141 APPL/141 GM TUBE TP SCH (08:46)
[2020-01-11] MEDS: Bumetanide 1 MG TABLET PO SCH (12:15)
[2020-01-11] MEDS: Fluticasone Propionate Nasal 50 MCG/SPRAY BOTTLE NS SCH (16:21)
[2020-01-12] MEDS: Levalbuterol Neb 1.25 MG/3 ML IH PRN (04:05)
[2020-01-12] MEDS: *HR* Enoxaparin 40 MG/0.4 ML SYRINGE SQ SCH (05:04)
[2020-01-12] MEDS: Vancomycin 1,250 MG/262.5 ML IV.SOLN IVPB SCH (05:04)
[2020-01-12 07:53] LABS: BUN/Creatinine Ratio 29 (6-26); Blood Urea Nitrogen 23 mg/dL (8-23); Carbon Dioxide 27 mEq/L (23-29); Chloride 108 mEq/L (98-107); Glucose 124 mg/dL (70-105); Osmolality,Calculated 295 (280-300); Sodium 140 mEq/L (136-145); eGFR For African Americans > 60 (> 60); eGFR For Non-African Americans > 60 (> 60)
[2020-01-12] MEDS: Bumetanide 1 MG TABLET PO SCH (08:42)
[2020-01-12] MEDS: cefTRIAXone 1,000 MG in Water for inj. (sterile) 10 ML IVP SCH (08:42)
[2020-01-12] MEDS: Aspirin Enteric Coated 81 MG Tablet PO SCH (08:42)
[2020-01-12] MEDS: Fluticasone Propionate Nasal 50 MCG/SPRAY BOTTLE NS SCH (08:48)
[2020-01-12] MEDS: Miconazole 2% ointment 141 APPL/141 GM TUBE TP SCH (08:49)
[2020-01-13] MEDS: Acetaminophen 325 MG TABLET PO PRN ×2 (00:37→20:10)
[2020-01-13] MEDS: Miconazole 2% ointment 141 APPL/141 GM TUBE TP SCH (01:00)
[2020-01-13] MEDS: Levalbuterol Neb 1.25 MG/3 ML IH PRN (04:10)
[2020-01-13 05:23] LABS: BUN/Creatinine Ratio 33 (6-26); Blood Urea Nitrogen 23 mg/dL (8-23); Calcium 8.2 mg/dL (8.6-10.3); Carbon Dioxide 27 mEq/L (23-29); Chloride 108 mEq/L (98-107); Glucose 113 mg/dL (70-105); Osmolality,Calculated 294 (280-300); Potassium 3.9 mEq/L (3.5-5.1); Sodium 140 mEq/L (136-145); eGFR For African Americans > 60 (> 60); eGFR For Non-African Americans > 60 (> 60)
[2020-01-13] MEDS: *HR* Enoxaparin 40 MG/0.4 ML SYRINGE SQ SCH (05:50)
[2020-01-13] MEDS: Vancomycin 1,250 MG/262.5 ML IV.SOLN IVPB SCH (05:51)
[2020-01-13] MEDS: Bumetanide 1 MG TABLET PO SCH (09:11)
[2020-01-13] MEDS: Aspirin Enteric Coated 81 MG Tablet PO SCH (09:11)
[2020-01-13] MEDS: cefTRIAXone 1,000 MG in Water for inj. (sterile) 10 ML IVP SCH (09:11)
[2020-01-13] MEDS: Fluticasone Propionate Nasal 50 MCG/SPRAY BOTTLE NS SCH (09:11)
[2020-01-13] MEDS ORDERED: Aminoglycoside Consult 1 EACH MC ONE (16:27)
[2020-01-14] MEDS: Acetaminophen 325 MG TABLET PO PRN (02:42)
[2020-01-14] MEDS: Miconazole 2% ointment 141 APPL/141 GM TUBE TP SCH (03:00)
[2020-01-14] MEDS: Levalbuterol Neb 1.25 MG/3 ML IH PRN (04:39)
[2020-01-14] MEDS: *HR* Enoxaparin 40 MG/0.4 ML SYRINGE SQ SCH (06:48)
[2020-01-14] MEDS: cefTRIAXone 1,000 MG in Water for inj. (sterile) 10 ML IVP SCH (08:53)
[2020-01-14] MEDS: Bumetanide 1 MG TABLET PO SCH (08:53)
[2020-01-14] MEDS: Aspirin Enteric Coated 81 MG Tablet PO SCH (08:53)
[2020-01-14] MEDS: Fluticasone Propionate Nasal 50 MCG/SPRAY BOTTLE NS SCH (08:54)
[2020-01-14] MEDS ORDERED: Linezolid 600 MG TABLET PO SCH (11:15)
[2020-01-14 11:38] VITALS: BP 117/53
== END 2020-01-14 16:28 | disposition home health service (06) | DRG 871 ==
LOC: EMEROOARM 08:33 → 3ANU 08:33 → SUATTDRO 11:57 → 3ANU 11:59
PROVIDERS: ADMIT Internal Medicine; ATTEND Internal Medicine

== ENCOUNTER 2020-02-01 21:00 | Inpatient (IN) ==
[2020-02-01] MEDS ORDERED: 0.9 % Sodium Chloride 1,000 ML IVC ONE (21:07)
[2020-02-01 21:40] LABS: Basophils % 0.2 %; Eosinophils # 0.5 K/mcL (0.0-0.6); Eosinophils % 4.8 %; Hematocrit 35.7 % (35.3-44.9); Hemoglobin 11.5 g/dL (11.5-15.4); Immature Granulocytes % 0.3 % (0-4); Immature Platelets 3.7 % (1.1-6.1); Lymphocytes % 10.8 %; Mean Corpuscular HGB Conc 32.2 g/dL (31.6-35.5); Mean Corpuscular Hemoglobin 30.3 pg (28.0-33.3); Mean Corpuscular Volume 93.9 fL (83.0-100.0); Mean Platelet Volume 10.3 fL (9.4-12.4); Monocytes # 0.6 K/mcL (0.0-1.3); Neutrophils # 7.3 K/mcL (1.6-8.9); Red Cell Distribution Width 14.2 % (11.5-14.5); Segmented Neutrophils % 77.9 %; White Blood Count 9.4 K/mcL (4.3-11.1)
[2020-02-01 21:41] LABS: Platelet Count 90 K/mcL (140-400)
[2020-02-01 21:49] LABS: INR 1.3; Prothrombin Time 14.2 Seconds (9.4-12.1)
[2020-02-01 22:01] LABS: Alanine Aminotransferase 30 Units/L (7-52); Albumin 3.8 g/dL (3.5-5.7); Alkaline Phosphatase 153 Units/L (34-104); Aspartate Amino Transferase 37 Units/L (13-39); BUN/Creatinine Ratio 22 (6-26); Bilirubin,Direct 0.2 mg/dL (0.0-0.2); Bilirubin,Indirect 0.6 mg/dL (0.0-1.0); Bilirubin,Total 0.8 mg/dL (0.3-1.0); Blood Urea Nitrogen 15 mg/dL (8-23); Calcium 8.8 mg/dL (8.6-10.3); Carbon Dioxide 26 mEq/L (23-29); Chloride 107 mEq/L (98-107); Glucose 131 mg/dL (70-105); Osmolality,Calculated 293 (280-300); Phosphorous 2.8 mg/dL (2.7-4.5); Potassium 4.4 mEq/L (3.5-5.1); Sodium 140 mEq/L (136-145); Total Protein 7.8 g/dL (6.4-8.9); Troponin I < 0.03 ng/mL (< 0.04); eGFR For African Americans > 60 (> 60); eGFR For Non-African Americans > 60 (> 60)
[2020-02-01 23:27] LABS: Bacteria,Urine Few per hpf (None-Few); Bilirubin,Urine Negative (Negative); Blood,Urine Small (Negative); Clarity,Urine Turbid (Clear); Color,Urine Yellow (Yellow); Glucose,Urine (UA) Normal (Normal); Ketones,Urine Negative (Negative); Leukocyte Esterase,Urine Large (Negative); Nitrite,Urine Positive (Negative); PH,Urine 7.5 pH Units (5.0-8.0); Protein,Urine Trace mg/dL (Neg-Trace); Specific Gravity,Urine 1.017 (1.010-1.025); Squamous Epithelial Cell,Urine Few per hpf (None-Few); Urobilinogen,Urine Normal (Normal); WBC,Urine 50-100 per hpf (0-3)
[2020-02-02] MEDS ORDERED: Naloxone 0.4 MG/ML INJ IVP PRN (00:34)
[2020-02-02] MEDS ORDERED: Ondansetron 4 MG/2 ML VIAL IVP ONE (01:44)
[2020-02-02] MEDS: Ertapenem 1,000 MG in 0.9 % Sodium Chloride Mini Bag 100 ML IVPB SCH ×2 (02:40→08:39)
[2020-02-02 04:15] LABS: Basophils % 0.1 %; Eosinophils % 0.2 %; Mean Corpuscular HGB Conc 32.5 g/dL (31.6-35.5); Red Cell Distribution Width 14.4 % (11.5-14.5)
[2020-02-02 04:17] LABS: Hematocrit 32.9 % (35.3-44.9); Hemoglobin 10.7 g/dL (11.5-15.4); Immature Granulocytes % 0.5 % (0-4); Immature Platelets 3.3 % (1.1-6.1); Lymphocytes # 0.6 K/mcL (0.6-4.6); Lymphocytes % 4.4 %; Mean Corpuscular Hemoglobin 30.3 pg (28.0-33.3); Mean Corpuscular Volume 93.2 fL (83.0-100.0); Mean Platelet Volume 10.8 fL (9.4-12.4); Monocytes % 4.1 %; Red Blood Count 3.53 M/mcL (3.82-4.97); Segmented Neutrophils % 90.7 %; White Blood Count 13.3 K/mcL (4.3-11.1)
[2020-02-02 04:18] LABS: Monocytes # 0.6 K/mcL (0.0-1.3); Neutrophils # 12.1 K/mcL (1.6-8.9); Platelet Count 76 K/mcL (140-400)
[2020-02-02 04:34] LABS: Alanine Aminotransferase 41 Units/L (7-52); Albumin 3.3 g/dL (3.5-5.7); Albumin/Globulin Ratio 0.9 (1.1-2.2); Alkaline Phosphatase 137 Units/L (34-104); Aspartate Amino Transferase 59 Units/L (13-39); BUN/Creatinine Ratio 23 (6-26); Blood Urea Nitrogen 15 mg/dL (8-23); Calcium 8.1 mg/dL (8.6-10.3); Carbon Dioxide 24 mEq/L (23-29); Chloride 108 mEq/L (98-107); Globulin 3.8 g/dL (2.4-3.5); Glucose 159 mg/dL (70-105); Osmolality,Calculated 292 (280-300); Potassium 4.6 mEq/L (3.5-5.1); Sodium 139 mEq/L (136-145); Total Protein 7.1 g/dL (6.4-8.9); eGFR For African Americans > 60 (> 60); eGFR For Non-African Americans > 60 (> 60)
[2020-02-02] MEDS: Aspirin Enteric Coated 81 MG Tablet PO SCH (08:39)
[2020-02-02] MEDS ORDERED: Bumetanide 1 MG TABLET PO SCH (09:00)
[2020-02-02] MEDS: *HR* Heparin 5,000 UNIT/ML VIAL SQ SCH (17:34)
[2020-02-02] MEDS: Furosemide 20 MG/2 ML VIAL IVP SCH (20:45)
[2020-02-03] MEDS: *HR* Heparin 5,000 UNIT/ML VIAL SQ SCH ×2 (06:10→17:02)
[2020-02-03 06:39] LABS: Basophils % 0.3 %; Immature Granulocytes % 0.4 % (0-4)
[2020-02-03 06:41] LABS: Eosinophils # 0.5 K/mcL (0.0-0.6); Eosinophils % 7.3 %; Hematocrit 31.4 % (35.3-44.9); Immature Platelets 4.4 % (1.1-6.1); Lymphocytes # 1.4 K/mcL (0.6-4.6); Lymphocytes % 20.2 %; Mean Corpuscular HGB Conc 31.8 g/dL (31.6-35.5); Mean Corpuscular Hemoglobin 29.5 pg (28.0-33.3); Mean Corpuscular Volume 92.6 fL (83.0-100.0); Mean Platelet Volume 11.5 fL (9.4-12.4); Monocytes # 0.6 K/mcL (0.0-1.3); Monocytes % 8.8 %; Neutrophils # 4.5 K/mcL (1.6-8.9); Red Blood Count 3.39 M/mcL (3.82-4.97); Red Cell Distribution Width 14.3 % (11.5-14.5); White Blood Count 7.1 K/mcL (4.3-11.1)
[2020-02-03 06:44] LABS: Platelet Count 72 K/mcL (140-400)
[2020-02-03 06:58] LABS: BUN/Creatinine Ratio 20 (6-26); Blood Urea Nitrogen 19 mg/dL (8-23); Carbon Dioxide 26 mEq/L (23-29); Chloride 105 mEq/L (98-107); Glucose 118 mg/dL (70-105); Osmolality,Calculated 287 (280-300); Sodium 137 mEq/L (136-145); eGFR For African Americans > 60 (> 60); eGFR For Non-African Americans 57 (> 60)
[2020-02-03] MEDS: Aspirin Enteric Coated 81 MG Tablet PO SCH (07:51)
[2020-02-03] MEDS: Furosemide 20 MG/2 ML VIAL IVP SCH ×2 (07:51→21:06)
[2020-02-04 02:17] LABS: Immature Granulocytes % 0.3 % (0-4)
[2020-02-04 02:19] LABS: Basophils % 0.3 %; Eosinophils # 0.7 K/mcL (0.0-0.6); Eosinophils % 11.3 %; Hematocrit 35.1 % (35.3-44.9); Hemoglobin 11.1 g/dL (11.5-15.4); Immature Platelets 4.5 % (1.1-6.1); Lymphocytes # 1.6 K/mcL (0.6-4.6); Mean Corpuscular HGB Conc 31.6 g/dL (31.6-35.5); Mean Corpuscular Hemoglobin 29.8 pg (28.0-33.3); Mean Corpuscular Volume 94.1 fL (83.0-100.0); Mean Platelet Volume 11.3 fL (9.4-12.4); Monocytes # 0.5 K/mcL (0.0-1.3); Monocytes % 8.2 %; Neutrophils # 3.6 K/mcL (1.6-8.9); Red Blood Count 3.73 M/mcL (3.82-4.97); Red Cell Distribution Width 14.2 % (11.5-14.5); Segmented Neutrophils % 54.9 %; White Blood Count 6.5 K/mcL (4.3-11.1)
[2020-02-04 02:20] LABS: Platelet Count 88 K/mcL (140-400)
[2020-02-04 02:34] LABS: BUN/Creatinine Ratio 23 (6-26); Blood Urea Nitrogen 24 mg/dL (8-23); Calcium 8.6 mg/dL (8.6-10.3); Carbon Dioxide 25 mEq/L (23-29); Chloride 105 mEq/L (98-107); Glucose 131 mg/dL (70-105); Osmolality,Calculated 292 (280-300); Sodium 138 mEq/L (136-145); eGFR For African Americans > 60 (> 60); eGFR For Non-African Americans 53 (> 60)
[2020-02-04] MEDS: Desitin (Zinc Oxide) 56 GM TUBE TP SCH ×4 (05:21→21:29)
[2020-02-04] MEDS: *HR* Heparin 5,000 UNIT/ML VIAL SQ SCH ×2 (06:08→17:12)
[2020-02-04] MEDS: Ertapenem 1,000 MG in 0.9 % Sodium Chloride Mini Bag 100 ML IVPB SCH (08:47)
[2020-02-04] MEDS: Furosemide 20 MG/2 ML VIAL IVP SCH (08:47)
[2020-02-04] MEDS: Aspirin Enteric Coated 81 MG Tablet PO SCH (08:47)
[2020-02-04 11:04] LABS: Adenovirus F 40/41 PCR Not detected (Not detect); Astrovirus PCR Not detected (Not detect); C.difficile Toxin A/B Gene PCR Not detected (Not detect); Campylobacter by PCR Not detected (Not detect); Cryptosporidium by PCR Not detected (Not detect); Cyclospora cayetanensis PCR Not detected (Not detect); E. coli O157 by PCR Not detected (Not detect); Entamoeba histolytica PCR Not detected (Not detect); Enteroaggregative E.coli(EAEC) Not detected (Not detect); Enteropathogenic E.coli(EPEC) Not detected (Not detect); Enterotoxigenic E.coli (ETEC) Not detected (Not detect); Giardia lamblia PCR Not detected (Not detect); Norovirus GI/GII PCR Not detected (Not detect); Plesiomonas shigelloides PCR Not detected (Not detect); Rotavirus A PCR Not detected (Not detect); Salmonella PCR Not detected (Not detect); Sapovirus PCR Not detected (Not detect); Shig/EnteroinvasiveE coli EIEC Not detected (Not detect); Shigalike tox-prod E coli STEC Not detected (Not detect); Vibrio PCR Not detected (Not detect); Vibrio cholerae PCR Not detected (Not detect); Yersinia enterocolitica PCR Not detected (Not detect)
[2020-02-04] MEDS: Meropenem 1,000 MG in 0.9 % Sodium Chloride Mini Bag 100 ML IVPB SCH (23:43)
[2020-02-05 02:22] LABS: Immature Granulocytes % 0.2 % (0-4); Mean Platelet Volume 11.3 fL (9.4-12.4); Red Blood Count 3.46 M/mcL (3.82-4.97)
[2020-02-05 02:23] LABS: Basophils % 0.6 %; Eosinophils # 0.6 K/mcL (0.0-0.6); Eosinophils % 11.5 %; Hematocrit 32.1 % (35.3-44.9); Hemoglobin 10.3 g/dL (11.5-15.4); Immature Platelets 3.6 % (1.1-6.1); Lymphocytes # 1.5 K/mcL (0.6-4.6); Lymphocytes % 29.8 %; Mean Corpuscular HGB Conc 32.1 g/dL (31.6-35.5); Mean Corpuscular Hemoglobin 29.8 pg (28.0-33.3); Mean Corpuscular Volume 92.8 fL (83.0-100.0); Monocytes # 0.4 K/mcL (0.0-1.3); Monocytes % 7.5 %; Neutrophils # 2.6 K/mcL (1.6-8.9); Red Cell Distribution Width 13.9 % (11.5-14.5); Segmented Neutrophils % 50.4 %; White Blood Count 5.1 K/mcL (4.3-11.1)
[2020-02-05 02:26] LABS: BUN/Creatinine Ratio 27 (6-26); Blood Urea Nitrogen 21 mg/dL (8-23); Calcium 7.8 mg/dL (8.6-10.3); Carbon Dioxide 26 mEq/L (23-29); Chloride 107 mEq/L (98-107); Glucose 101 mg/dL (70-105); Osmolality,Calculated 293 (280-300); Potassium 3.8 mEq/L (3.5-5.1); Sodium 140 mEq/L (136-145); eGFR For African Americans > 60 (> 60); eGFR For Non-African Americans > 60 (> 60)
[2020-02-05 02:33] LABS: Platelet Count 89 K/mcL (140-400)
[2020-02-05] MEDS: *HR* Heparin 5,000 UNIT/ML VIAL SQ SCH ×2 (06:04→16:30)
[2020-02-05] MEDS ORDERED: Fluconazole 150 MG TABLET PO ONE (07:19)
[2020-02-05] MEDS: Meropenem 1,000 MG in 0.9 % Sodium Chloride Mini Bag 100 ML IVPB SCH ×3 (08:11→23:28)
[2020-02-05] MEDS: Aspirin Enteric Coated 81 MG Tablet PO SCH (08:11)
[2020-02-05] MEDS: Furosemide 40 MG TABLET PO SCH (08:11)
[2020-02-05] MEDS: Nystatin POWDER 30 GM BOTTLE TP SCH ×2 (08:11→19:51)
[2020-02-05] MEDS: Desitin (Zinc Oxide) 56 GM TUBE TP SCH ×3 (08:12→19:50)
[2020-02-05] MEDS: Lactobacillus 1 EACH CAP.SPRINK PO SCH (19:51)
[2020-02-06] MEDS: *HR* Heparin 5,000 UNIT/ML VIAL SQ SCH ×2 (05:34→16:15)
[2020-02-06 05:48] LABS: Hemoglobin 10.4 g/dL (11.5-15.4)
[2020-02-06 05:50] LABS: Basophils % 0.6 %; Eosinophils # 0.7 K/mcL (0.0-0.6); Eosinophils % 14.3 %; Hematocrit 31.8 % (35.3-44.9); Immature Granulocytes % 0.2 % (0-4); Immature Platelets 5.6 % (1.1-6.1); Lymphocytes # 1.6 K/mcL (0.6-4.6); Lymphocytes % 33.8 %; Mean Corpuscular HGB Conc 32.7 g/dL (31.6-35.5); Mean Corpuscular Hemoglobin 29.8 pg (28.0-33.3); Mean Corpuscular Volume 91.1 fL (83.0-100.0); Mean Platelet Volume 11.2 fL (9.4-12.4); Monocytes # 0.5 K/mcL (0.0-1.3); Monocytes % 9.4 %; Red Blood Count 3.49 M/mcL (3.82-4.97); Segmented Neutrophils % 41.7 %; White Blood Count 4.8 K/mcL (4.3-11.1)
[2020-02-06 06:08] LABS: BUN/Creatinine Ratio 28 (6-26); Blood Urea Nitrogen 19 mg/dL (8-23); Calcium 8.2 mg/dL (8.6-10.3); Carbon Dioxide 28 mEq/L (23-29); Chloride 108 mEq/L (98-107); Glucose 96 mg/dL (70-105); Osmolality,Calculated 292 (280-300); Potassium 3.9 mEq/L (3.5-5.1); Sodium 140 mEq/L (136-145); eGFR For African Americans > 60 (> 60); eGFR For Non-African Americans > 60 (> 60)
[2020-02-06 06:17] LABS: Platelet Count 93 K/mcL (140-400)
[2020-02-06 06:18] LABS: Platelet Estimate Decreased (Normal)
[2020-02-06] MEDS: Furosemide 40 MG TABLET PO SCH (09:05)
[2020-02-06] MEDS: Aspirin Enteric Coated 81 MG Tablet PO SCH (09:05)
[2020-02-06] MEDS: Meropenem 1,000 MG in 0.9 % Sodium Chloride Mini Bag 100 ML IVPB SCH ×3 (09:05→23:18)
[2020-02-06] MEDS: Lactobacillus 1 EACH CAP.SPRINK PO SCH ×2 (09:05→21:03)
[2020-02-06] MEDS: Desitin (Zinc Oxide) 56 GM TUBE TP SCH ×3 (09:12→21:03)
[2020-02-06] MEDS: Nystatin POWDER 30 GM BOTTLE TP SCH ×2 (09:12→21:03)
[2020-02-06] MEDS ORDERED: Albuterol 2.5 MG/3 ML NEBULIZER IH PRN (15:06)
[2020-02-07] MEDS: *HR* Heparin 5,000 UNIT/ML VIAL SQ SCH ×2 (05:25→17:10)
[2020-02-07 05:29] LABS: Hemoglobin 10.8 g/dL (11.5-15.4); Immature Granulocytes % 0.4 % (0-4); Red Cell Distribution Width 13.8 % (11.5-14.5)
[2020-02-07 05:31] LABS: Basophils % 0.6 %; Eosinophils # 0.6 K/mcL (0.0-0.6); Eosinophils % 11.5 %; Hematocrit 33.7 % (35.3-44.9); Immature Platelets 2.9 % (1.1-6.1); Lymphocytes # 1.5 K/mcL (0.6-4.6); Lymphocytes % 30.3 %; Mean Corpuscular Hemoglobin 29.8 pg (28.0-33.3); Mean Corpuscular Volume 92.8 fL (83.0-100.0); Monocytes # 0.5 K/mcL (0.0-1.3); Monocytes % 11.1 %; Neutrophils # 2.3 K/mcL (1.6-8.9); Platelet Count 100 K/mcL (140-400); Red Blood Count 3.63 M/mcL (3.82-4.97); Segmented Neutrophils % 46.1 %; White Blood Count 4.9 K/mcL (4.3-11.1)
[2020-02-07] MEDS: Aspirin Enteric Coated 81 MG Tablet PO SCH (09:37)
[2020-02-07] MEDS: Meropenem 1,000 MG in 0.9 % Sodium Chloride Mini Bag 100 ML IVPB SCH ×2 (09:37→17:10)
[2020-02-07] MEDS: Furosemide 40 MG TABLET PO SCH (09:37)
[2020-02-07] MEDS: Fluconazole 150 MG TABLET PO SCH (09:37)
[2020-02-07] MEDS: Nystatin POWDER 30 GM BOTTLE TP SCH ×2 (09:37→20:47)
[2020-02-07] MEDS: Lactobacillus 1 EACH CAP.SPRINK PO SCH ×2 (09:37→20:47)
[2020-02-07] MEDS: Desitin (Zinc Oxide) 56 GM TUBE TP SCH ×3 (09:37→20:47)
[2020-02-07] MEDS: Ondansetron 4 MG/2 ML VIAL IVP PRN (17:10)
[2020-02-08] MEDS: Meropenem 1,000 MG in 0.9 % Sodium Chloride Mini Bag 100 ML IVPB SCH ×3 (00:42→16:29)
[2020-02-08] MEDS: *HR* Heparin 5,000 UNIT/ML VIAL SQ SCH ×2 (05:45→16:29)
[2020-02-08] MEDS: Lactobacillus 1 EACH CAP.SPRINK PO SCH ×2 (09:19→20:04)
[2020-02-08] MEDS: Aspirin Enteric Coated 81 MG Tablet PO SCH (09:19)
[2020-02-08] MEDS: Nystatin POWDER 30 GM BOTTLE TP SCH ×2 (09:19→20:04)
[2020-02-08] MEDS: Furosemide 40 MG TABLET PO SCH (09:19)
[2020-02-08] MEDS: Fluconazole 150 MG TABLET PO SCH (09:19)
[2020-02-08] MEDS: Desitin (Zinc Oxide) 56 GM TUBE TP SCH ×3 (09:19→20:04)
[2020-02-08] MEDS: Ondansetron 4 MG/2 ML VIAL IVP PRN (20:04)
[2020-02-09] MEDS: Meropenem 1,000 MG in 0.9 % Sodium Chloride Mini Bag 100 ML IVPB SCH (00:09)
[2020-02-09] MEDS: *HR* Heparin 5,000 UNIT/ML VIAL SQ SCH (05:46)
[2020-02-09] MEDS: Desitin (Zinc Oxide) 56 GM TUBE TP SCH ×2 (08:44→14:43)
[2020-02-09] MEDS: Lactobacillus 1 EACH CAP.SPRINK PO SCH (08:44)
[2020-02-09] MEDS: Fluconazole 150 MG TABLET PO SCH (08:44)
[2020-02-09] MEDS: Aspirin Enteric Coated 81 MG Tablet PO SCH (08:44)
[2020-02-09] MEDS: Furosemide 40 MG TABLET PO SCH ×2 (08:44→08:47)
[2020-02-09] MEDS: Nystatin POWDER 30 GM BOTTLE TP SCH (08:44)
[2020-02-09] MEDS ORDERED: Fosfomycin Tromethamine 3 GM Packet PO ONE (10:00)
[2020-02-09 11:09] VITALS: BP 134/62
== END 2020-02-09 15:55 | disposition home health service (06) | DRG 871 ==
LOC: EMEROOARM 21:00 → 2NENU 21:00 → SUATTDRO 02-02 13:01 → 2ANU 02-04 18:22
PROVIDERS: ADMIT Student in an Organized Health Care Education/Training Program; ATTEND Internal Medicine

== ENCOUNTER 2020-02-24 20:13 | Inpatient (IN) ==
[2020-02-24] MEDS ORDERED: Isovue-370 500 ML BOTTLE IVP ONE (20:40)
[2020-02-24 21:08] LABS: Bacteria,Urine Few per hpf (None-Few); Bilirubin,Urine Negative (Negative); Blood,Urine Moderate (Negative); Clarity,Urine Turbid (Clear); Color,Urine Yellow (Yellow); Glucose,Urine (UA) Normal (Normal); Ketones,Urine Negative (Negative); Leukocyte Esterase,Urine Large (Negative); Mucus,Urine Few per lpf (None-Few); Nitrite,Urine Positive (Negative); PH,Urine 6.5 pH Units (5.0-8.0); Protein,Urine Trace mg/dL (Neg-Trace); RBC,Urine TNTC per hpf (0-3); Renal Epithelial Cells,Urine Few per hpf (None-Few); Specific Gravity,Urine 1.025 (1.010-1.025); Squamous Epithelial Cell,Urine Few per hpf (None-Few); Urobilinogen,Urine Normal (Normal); WBC,Urine TNTC per hpf (0-3)
[2020-02-24 21:34] LABS: Basophils % 0.1 %; Hemoglobin 12.6 g/dL (11.5-15.4); Mean Corpuscular Volume 96.4 fL (83.0-100.0); Red Cell Distribution Width 14.6 % (11.5-14.5)
[2020-02-24 21:36] LABS: Eosinophils # 0.2 K/mcL (0.0-0.6); Eosinophils % 2.8 %; Immature Granulocytes % 0.3 % (0-4); Immature Platelets 3.6 % (1.1-6.1); Lymphocytes # 0.7 K/mcL (0.6-4.6); Lymphocytes % 9.3 %; Mean Corpuscular HGB Conc 31.5 g/dL (31.6-35.5); Mean Corpuscular Hemoglobin 30.4 pg (28.0-33.3); Mean Platelet Volume 11.7 fL (9.4-12.4); Monocytes # 0.5 K/mcL (0.0-1.3); Monocytes % 7.1 %; Red Blood Count 4.15 M/mcL (3.82-4.97); Segmented Neutrophils % 80.4 %; White Blood Count 7.5 K/mcL (4.3-11.1)
[2020-02-24 21:37] LABS: Platelet Count 65 K/mcL (140-400)
[2020-02-24 22:04] LABS: Troponin I < 0.03 ng/mL (< 0.04)
[2020-02-24] MEDS ORDERED: Ondansetron 4 MG/2 ML VIAL IVP STA (22:16)
[2020-02-24 22:17] LABS: Alanine Aminotransferase 20 Units/L (7-52); Albumin 3.7 g/dL (3.5-5.7); Albumin/Globulin Ratio 0.9 (1.1-2.2); Alkaline Phosphatase 123 Units/L (34-104); Aspartate Amino Transferase 38 Units/L (13-39); BUN/Creatinine Ratio 30 (6-26); Bilirubin,Direct 0.2 mg/dL (0.0-0.2); Bilirubin,Indirect 0.8 mg/dL (0.0-1.0); Blood Urea Nitrogen 19 mg/dL (8-23); Calcium 8.8 mg/dL (8.6-10.3); Carbon Dioxide 19 mEq/L (23-29); Chloride 110 mEq/L (98-107); Globulin 4.3 g/dL (2.4-3.5); Glucose 121 mg/dL (70-105); Lipase 28 Units/L (11-82); Osmolality,Calculated 294 (280-300); Potassium 4.6 mEq/L (3.5-5.1); Sodium 140 mEq/L (136-145); eGFR For African Americans > 60 (> 60); eGFR For Non-African Americans > 60 (> 60)
[2020-02-24] MEDS ORDERED: 0.9 % Sodium Chloride 1,000 ML IVC STA ×2 (22:17→22:47)
[2020-02-24] MEDS ORDERED: Gentamicin 370 MG in 0.9 % Sodium Chloride 100 ML IVPB ONE (23:00)
[2020-02-25] MEDS ORDERED: Aminoglycoside Consult 1 EACH MC ONE (00:15)
[2020-02-25] MEDS ORDERED: Naloxone 0.4 MG/ML INJ IVP PRN (00:27)
[2020-02-25 01:55] LABS: Mean Platelet Volume 11.2 fL (9.4-12.4); Red Cell Distribution Width 14.6 % (11.5-14.5)
[2020-02-25 01:57] LABS: Hematocrit 33.3 % (35.3-44.9); Hemoglobin 10.5 g/dL (11.5-15.4); Immature Platelets 3.3 % (1.1-6.1); Mean Corpuscular HGB Conc 31.5 g/dL (31.6-35.5); Mean Corpuscular Hemoglobin 29.7 pg (28.0-33.3); Mean Corpuscular Volume 94.3 fL (83.0-100.0); Red Blood Count 3.53 M/mcL (3.82-4.97); White Blood Count 7.5 K/mcL (4.3-11.1)
[2020-02-25 02:18] LABS: BUN/Creatinine Ratio 29 (6-26); Blood Urea Nitrogen 18 mg/dL (8-23); Calcium 7.8 mg/dL (8.6-10.3); Carbon Dioxide 19 mEq/L (23-29); Chloride 112 mEq/L (98-107); Glucose 134 mg/dL (70-105); Osmolality,Calculated 292 (280-300); Potassium 4.2 mEq/L (3.5-5.1); Sodium 139 mEq/L (136-145); eGFR For African Americans > 60 (> 60); eGFR For Non-African Americans > 60 (> 60)
[2020-02-25] MEDS ORDERED: Albuterol 2.5 MG/3 ML NEBULIZER IH PRN (04:38)
[2020-02-25] MEDS ORDERED: Acetaminophen 325 MG TABLET PO PRN (06:49)
[2020-02-25] MEDS ORDERED: Furosemide 40 MG TABLET PO SCH (09:00)
[2020-02-25] MEDS ORDERED: Furosemide 20 MG TABLET PO PRN (09:07)
[2020-02-25] MEDS: Aspirin Enteric Coated 81 MG Tablet PO SCH (09:20)
[2020-02-25] MEDS: Chlorhexidine Rinse 15 ML MOUTHWASH MM SCH ×2 (10:24→20:48)
[2020-02-25] MEDS ORDERED: Colistin (Colistimethate) 300 MG in 0.9 % Sodium Chloride 50 ML IVPB ONE (15:01)
[2020-02-25] MEDS: CATH TIP INTRACATH SCH (16:38)
[2020-02-25] MEDS: SODIUM CHLORIDE INTRACATH SCH (16:38)
[2020-02-25] MEDS: GENTAMICIN INTRACATH SCH (16:38)
[2020-02-25] MEDS: *HR* Heparin 5,000 UNIT/ML VIAL SQ SCH (16:46)
[2020-02-25] MEDS: Acetaminophen 325 MG TABLET PO PRN (19:59)
[2020-02-25] MEDS ORDERED: Gentamicin 370 MG in 0.9 % Sodium Chloride 100 ML IVPB SCH (23:00)
[2020-02-26] MEDS: GENTAMICIN INTRACATH SCH ×2 (03:13→16:29)
[2020-02-26] MEDS: CATH TIP INTRACATH SCH ×2 (03:13→16:29)
[2020-02-26] MEDS: Colistin (Colistimethate) 150 MG in 0.9 % Sodium Chloride 50 ML IVPB SCH ×2 (03:13→16:21)
[2020-02-26] MEDS: SODIUM CHLORIDE INTRACATH SCH ×2 (03:13→16:29)
[2020-02-26] MEDS: *HR* Heparin 5,000 UNIT/ML VIAL SQ SCH ×2 (05:29→18:10)
[2020-02-26 06:43] LABS: Hemoglobin 10.7 g/dL (11.5-15.4); Mean Corpuscular Volume 94.9 fL (83.0-100.0); Red Cell Distribution Width 14.8 % (11.5-14.5)
[2020-02-26 06:45] LABS: Hematocrit 33.8 % (35.3-44.9); Immature Platelets 4.8 % (1.1-6.1); Mean Corpuscular HGB Conc 31.7 g/dL (31.6-35.5); Mean Corpuscular Hemoglobin 30.1 pg (28.0-33.3); Mean Platelet Volume 10.7 fL (9.4-12.4); Red Blood Count 3.56 M/mcL (3.82-4.97); White Blood Count 8.7 K/mcL (4.3-11.1)
[2020-02-26 07:02] LABS: BUN/Creatinine Ratio 24 (6-26); Blood Urea Nitrogen 18 mg/dL (8-23); Calcium 7.9 mg/dL (8.6-10.3); Carbon Dioxide 21 mEq/L (23-29); Chloride 107 mEq/L (98-107); Glucose 159 mg/dL (70-105); Osmolality,Calculated 281 (280-300); Potassium 3.9 mEq/L (3.5-5.1); Sodium 133 mEq/L (136-145); eGFR For African Americans > 60 (> 60); eGFR For Non-African Americans > 60 (> 60)
[2020-02-26] MEDS: Chlorhexidine Rinse 15 ML MOUTHWASH MM SCH ×2 (07:54→21:29)
[2020-02-26] MEDS: Aspirin Enteric Coated 81 MG Tablet PO SCH (07:54)
[2020-02-26] MEDS: Acetaminophen 325 MG TABLET PO PRN ×2 (09:01→19:31)
[2020-02-26] MEDS: Ondansetron 4 MG/2 ML VIAL IVP PRN (18:10)
[2020-02-26] MEDS ORDERED: *HR* Promethazine 25 MG/ML VIAL IVP ONE (19:46)
[2020-02-26] MEDS ORDERED: Acetaminophen IV 1,000 MG/100 ML BAG IVPB ONE (21:03)
[2020-02-27] MEDS: Colistin (Colistimethate) 150 MG in 0.9 % Sodium Chloride 50 ML IVPB SCH (02:48)
[2020-02-27 02:59] LABS: Hematocrit 34.8 % (35.3-44.9)
[2020-02-27 03:01] LABS: Hemoglobin 11.5 g/dL (11.5-15.4); Immature Platelets 6.9 % (1.1-6.1); Mean Corpuscular Hemoglobin 30.3 pg (28.0-33.3); Mean Corpuscular Volume 91.8 fL (83.0-100.0); Mean Platelet Volume 11.5 fL (9.4-12.4); Red Blood Count 3.79 M/mcL (3.82-4.97); Red Cell Distribution Width 14.6 % (11.5-14.5); White Blood Count 13.4 K/mcL (4.3-11.1)
[2020-02-27 03:19] LABS: BUN/Creatinine Ratio 22 (6-26); Blood Urea Nitrogen 23 mg/dL (8-23); Calcium 7.9 mg/dL (8.6-10.3); Carbon Dioxide 20 mEq/L (23-29); Chloride 105 mEq/L (98-107); Glucose 115 mg/dL (70-105); Osmolality,Calculated 283 (280-300); Sodium 134 mEq/L (136-145); eGFR For African Americans > 60 (> 60); eGFR For Non-African Americans 53 (> 60)
[2020-02-27] MEDS: GENTAMICIN INTRACATH SCH ×2 (03:55→17:54)
[2020-02-27] MEDS: CATH TIP INTRACATH SCH ×2 (03:55→17:54)
[2020-02-27] MEDS: SODIUM CHLORIDE INTRACATH SCH ×2 (03:55→17:54)
[2020-02-27] MEDS: *HR* Heparin 5,000 UNIT/ML VIAL SQ SCH ×2 (06:01→17:55)
[2020-02-27] MEDS: Ondansetron 4 MG/2 ML VIAL IVP PRN (08:44)
[2020-02-27] MEDS: Aspirin Enteric Coated 81 MG Tablet PO SCH (09:00)
[2020-02-27] MEDS: Chlorhexidine Rinse 15 ML MOUTHWASH MM SCH ×2 (09:00→20:19)
[2020-02-27] MEDS ORDERED: Vancomycin 1,750 MG/517.5 ML IV.SOLN IVPB ONE (09:14)
[2020-02-27 09:59] LABS: Adenovirus Not Detected (Not Detect); Bordetella Pertussis Not Detected (Not Detect); Chlamydophila pneumoniae Not Detected (Not Detect); Coronavirus 229E Not Detected (Not Detect); Coronavirus HKU1 Not Detected (Not Detect); Coronavirus NL63 Not Detected (Not Detect); Coronavirus OC43 Not Detected (Not Detect); Human Metapneumovirus Not Detected (Not Detect); Human Rhinovirus/Enterovirus DETECTED (Not Detect); Influenza A Subtype 2009 H1 Not Detected (Not Detect); Influenza B Not Detected (Not Detect); Parainfluenza Virus 1 Not Detected (Not Detect); Parainfluenza Virus 2 Not Detected (Not Detect); Parainfluenza Virus 3 Not Detected (Not Detect); Parainfluenza Virus 4 Not Detected (Not Detect); Respiratory Syncytial Virus Not Detected (Not Detect)
[2020-02-27 10:00] LABS: Mycoplasma pneumoniae Not Detected (Not Detect)
[2020-02-27] MEDS ORDERED: Vancomycin 1,750 MG in 0.9 % Sodium Chloride 250 ML IVPB SCH (10:00)
[2020-02-27 10:01] LABS: SARS-CoV-2 Not Detected (Not Detect)
[2020-02-27 11:36] LABS: ABG Base Excess -4 mEq/L (-2 to 3); ABG HCO3 22 mEq/L (21-27); ABG Oxygen Saturation 97 % (95-98); ABG PCO2 40 mmHg (35-45); ABG PH 7.34 pH Units (7.32-7.45); ABG PO2 99 mmHg (85-104); ABG TCO2 23 mEq/L (20-26); Blood Gas FiO2 2.5 (1-15=lpm or21-100=%)
[2020-02-27] MEDS ORDERED: Furosemide 20 MG TABLET PO SCH (12:00)
[2020-02-27] MEDS ORDERED: Gadolinium Contrast Agent (WT Based) IV PRN (12:01)
[2020-02-27] MEDS: Ipratropium/Albuterol Neb 3 ML IH SCH ×3 (14:10→20:39)
[2020-02-27] MEDS: Furosemide 20 MG/2 ML VIAL IVP SCH (14:15)
[2020-02-27] MEDS: MethylPREDNISolone 40 MG/ML VIAL IVP SCH ×2 (14:15→17:55)
[2020-02-27] MEDS: Colistin (Colistimethate) 110 MG in 0.9 % Sodium Chloride 50 ML IVPB SCH (17:55)
[2020-02-28] MEDS: Ipratropium/Albuterol Neb 3 ML IH SCH ×4 (00:41→11:03)
[2020-02-28] MEDS: Colistin (Colistimethate) 110 MG in 0.9 % Sodium Chloride 50 ML IVPB SCH (02:58)
[2020-02-28] MEDS: GENTAMICIN INTRACATH SCH (02:59)
[2020-02-28] MEDS: CATH TIP INTRACATH SCH (02:59)
[2020-02-28] MEDS: SODIUM CHLORIDE INTRACATH SCH (02:59)
[2020-02-28 03:55] LABS: Lymphocytes % 5.5 %
[2020-02-28 03:57] LABS: Hematocrit 30.9 % (35.3-44.9); Hemoglobin 10.1 g/dL (11.5-15.4); Immature Granulocytes % 1.3 % (0-4); Immature Platelets 8.4 % (1.1-6.1); Lymphocytes # 0.4 K/mcL (0.6-4.6); Mean Corpuscular HGB Conc 32.7 g/dL (31.6-35.5); Mean Corpuscular Hemoglobin 31.1 pg (28.0-33.3); Mean Corpuscular Volume 95.1 fL (83.0-100.0); Mean Platelet Volume 12.6 fL (9.4-12.4); Monocytes # 0.2 K/mcL (0.0-1.3); Monocytes % 2.1 %; Red Blood Count 3.25 M/mcL (3.82-4.97); Red Cell Distribution Width 14.5 % (11.5-14.5); Segmented Neutrophils % 91.1 %; White Blood Count 7.5 K/mcL (4.3-11.1)
[2020-02-28 04:00] LABS: Neutrophils # 6.8 K/mcL (1.6-8.9); Platelet Count 50 K/mcL (140-400)
[2020-02-28 04:10] LABS: Albumin 2.6 g/dL (3.5-5.7); Albumin/Globulin Ratio 0.8 (1.1-2.2); Globulin 3.4 g/dL (2.4-3.5); Magnesium 1.6 mg/dL (1.6-2.6); Phosphorous 3.3 mg/dL (2.7-4.5)
[2020-02-28] MEDS: MethylPREDNISolone 40 MG/ML VIAL IVP SCH ×2 (05:36→18:03)
[2020-02-28] MEDS: *HR* Heparin 5,000 UNIT/ML VIAL SQ SCH ×2 (05:36→18:03)
[2020-02-28] MEDS: Chlorhexidine Rinse 15 ML MOUTHWASH MM SCH ×2 (07:41→22:42)
[2020-02-28] MEDS: Furosemide 20 MG/2 ML VIAL IVP SCH (07:41)
[2020-02-28] MEDS: Aspirin Enteric Coated 81 MG Tablet PO SCH (07:41)
[2020-02-28] MEDS ORDERED: Vancomycin 1,250 MG/262.5 ML IV.SOLN IVPB SCH (09:00)
[2020-02-28] MEDS: Nystatin POWDER 30 GM BOTTLE TP SCH ×2 (10:25→22:43)
[2020-02-28] MEDS ORDERED: Aminoglycoside Consult 1 EACH MC ONE (12:28)
[2020-02-28] MEDS: Ceftaroline Fosamil Acetate 400 MG in 0.9 % Sodium Chloride 50 ML IVPB SCH (12:47)
[2020-02-28] MEDS ORDERED: Ipratropium/Albuterol Neb 3 ML IH PRN (14:52)
[2020-02-28] MEDS ORDERED: COLISTIN IVPB SCH (15:00)
[2020-02-28] MEDS ORDERED: SODIUM CHLORIDE 0.9% IVPB SCH (15:00)
[2020-02-29] MEDS: Ceftaroline Fosamil Acetate 400 MG in 0.9 % Sodium Chloride 50 ML IVPB SCH ×2 (00:09→12:42)
[2020-02-29] MEDS ORDERED: Acetaminophen IV 1,000 MG/100 ML BAG IVPB ONE (03:16)
[2020-02-29 04:40] LABS: Basophils % 0.1 %; Mean Corpuscular Volume 93.2 fL (83.0-100.0); Monocytes % 3.2 %; Red Blood Count 3.22 M/mcL (3.82-4.97); Red Cell Distribution Width 14.4 % (11.5-14.5)
[2020-02-29 04:42] LABS: Immature Granulocytes % 1.1 % (0-4); Lymphocytes # 0.5 K/mcL (0.6-4.6); Lymphocytes % 6.3 %; Mean Corpuscular HGB Conc 33.3 g/dL (31.6-35.5); Mean Corpuscular Hemoglobin 31.1 pg (28.0-33.3); Mean Platelet Volume 12.6 fL (9.4-12.4); Monocytes # 0.3 K/mcL (0.0-1.3); Neutrophils # 7.5 K/mcL (1.6-8.9); Segmented Neutrophils % 89.3 %; White Blood Count 8.4 K/mcL (4.3-11.1)
[2020-02-29 04:57] LABS: Platelet Count 63 K/mcL (140-400)
[2020-02-29 04:59] LABS: Calcium 8.2 mg/dL (8.6-10.3); Magnesium 1.7 mg/dL (1.6-2.6); Phosphorous 3.5 mg/dL (2.7-4.5); Potassium 3.8 mEq/L (3.5-5.1)
[2020-02-29] MEDS: *HR* Heparin 5,000 UNIT/ML VIAL SQ SCH ×3 (06:03→17:00)
[2020-02-29] MEDS: predniSONE 20 MG TABLET PO SCH (08:37)
[2020-02-29] MEDS: Aspirin Enteric Coated 81 MG Tablet PO SCH (08:37)
[2020-02-29] MEDS: Nystatin POWDER 30 GM BOTTLE TP SCH ×2 (08:38→20:16)
[2020-02-29 09:24] LABS: HSV 1 DNA Not Detected (Not Detect); HSV 2 DNA Not Detected (Not Detect)
[2020-02-29] MEDS ORDERED: 0.9 % Sodium Chloride 1,000 ML IVC ONE (11:49)
[2020-02-29] MEDS: Chlorhexidine Rinse 15 ML MOUTHWASH MM SCH ×2 (12:39→20:16)
[2020-02-29] MEDS ORDERED: 0.9 % Sodium Chloride 1,000 ML IVC SCH (12:45)
[2020-03-01] MEDS: Ceftaroline Fosamil Acetate 400 MG in 0.9 % Sodium Chloride 50 ML IVPB SCH ×2 (00:15→11:31)
[2020-03-01 04:14] LABS: Basophils % 0.1 %; Hematocrit 31.7 % (35.3-44.9); Hemoglobin 10.4 g/dL (11.5-15.4); Immature Granulocytes % 1.1 % (0-4); Immature Platelets 6.4 % (1.1-6.1); Lymphocytes # 0.7 K/mcL (0.6-4.6); Lymphocytes % 9.1 %; Mean Corpuscular HGB Conc 32.8 g/dL (31.6-35.5); Mean Corpuscular Hemoglobin 30.3 pg (28.0-33.3); Mean Corpuscular Volume 92.4 fL (83.0-100.0); Mean Platelet Volume 11.8 fL (9.4-12.4); Monocytes # 0.4 K/mcL (0.0-1.3); Neutrophils # 6.1 K/mcL (1.6-8.9); Red Blood Count 3.43 M/mcL (3.82-4.97); Red Cell Distribution Width 14.5 % (11.5-14.5); Segmented Neutrophils % 84.7 %; White Blood Count 7.2 K/mcL (4.3-11.1)
[2020-03-01 04:15] LABS: Platelet Count 79 K/mcL (140-400)
[2020-03-01 04:29] LABS: Calcium 7.8 mg/dL (8.6-10.3); Potassium 3.9 mEq/L (3.5-5.1)
[2020-03-01] MEDS: *HR* Heparin 5,000 UNIT/ML VIAL SQ SCH ×2 (06:19→17:10)
[2020-03-01] MEDS: predniSONE 20 MG TABLET PO SCH (08:14)
[2020-03-01] MEDS: Nystatin POWDER 30 GM BOTTLE TP SCH ×2 (08:14→21:48)
[2020-03-01] MEDS: Aspirin Enteric Coated 81 MG Tablet PO SCH (08:14)
[2020-03-01] MEDS: Chlorhexidine Rinse 15 ML MOUTHWASH MM SCH ×2 (08:14→21:45)
[2020-03-02] MEDS: Ceftaroline Fosamil Acetate 400 MG in 0.9 % Sodium Chloride 50 ML IVPB SCH ×2 (00:23→12:11)
[2020-03-02 03:56] LABS: Basophils % 0.6 %; Eosinophils % 0.2 %; Hematocrit 32.8 % (35.3-44.9); Hemoglobin 10.8 g/dL (11.5-15.4); Immature Granulocytes % 3.7 % (0-4); Lymphocytes # 0.9 K/mcL (0.6-4.6); Lymphocytes % 14.6 %; Mean Corpuscular HGB Conc 32.9 g/dL (31.6-35.5); Mean Corpuscular Hemoglobin 30.3 pg (28.0-33.3); Mean Corpuscular Volume 91.9 fL (83.0-100.0); Monocytes # 0.5 K/mcL (0.0-1.3); Monocytes % 7.9 %; Neutrophils # 4.6 K/mcL (1.6-8.9); Platelet Count 101 K/mcL (140-400); Red Blood Count 3.57 M/mcL (3.82-4.97); Red Cell Distribution Width 14.6 % (11.5-14.5); White Blood Count 6.2 K/mcL (4.3-11.1)
[2020-03-02 04:18] LABS: Calcium 8.1 mg/dL (8.6-10.3); Potassium 3.7 mEq/L (3.5-5.1)
[2020-03-02] MEDS: *HR* Heparin 5,000 UNIT/ML VIAL SQ SCH ×2 (05:48→17:46)
[2020-03-02] MEDS: Ondansetron 4 MG/2 ML VIAL IVP PRN ×2 (06:15→17:59)
[2020-03-02] MEDS: Furosemide 40 MG TABLET PO SCH (09:21)
[2020-03-02] MEDS: Aspirin Enteric Coated 81 MG Tablet PO SCH (09:22)
[2020-03-02] MEDS: Chlorhexidine Rinse 15 ML MOUTHWASH MM SCH ×2 (09:22→22:49)
[2020-03-02] MEDS: Nystatin POWDER 30 GM BOTTLE TP SCH ×2 (09:22→22:51)
[2020-03-02] MEDS: predniSONE 20 MG TABLET PO SCH (09:22)
[2020-03-02] MEDS ORDERED: *HR* Promethazine 25 MG/ML VIAL IVP ONE (23:30)
[2020-03-03] MEDS: Ceftaroline Fosamil Acetate 400 MG in 0.9 % Sodium Chloride 50 ML IVPB SCH (00:24)
[2020-03-03 05:04] LABS: Basophils # 0.1 K/mcL (0.0-0.2); Basophils % 1.1 %; Eosinophils % 0.1 %; Hemoglobin 11.9 g/dL (11.5-15.4); Immature Granulocytes % 5.4 % (0-4); Lymphocytes % 12.5 %; Mean Corpuscular HGB Conc 33.1 g/dL (31.6-35.5); Mean Corpuscular Hemoglobin 29.8 pg (28.0-33.3); Mean Corpuscular Volume 90.2 fL (83.0-100.0); Mean Platelet Volume 10.3 fL (9.4-12.4); Monocytes # 0.5 K/mcL (0.0-1.3); Monocytes % 6.4 %; Neutrophils # 5.9 K/mcL (1.6-8.9); Platelet Count 142 K/mcL (140-400); Red Blood Count 3.99 M/mcL (3.82-4.97); Red Cell Distribution Width 14.5 % (11.5-14.5); Segmented Neutrophils % 74.5 %; White Blood Count 7.9 K/mcL (4.3-11.1)
[2020-03-03 05:23] LABS: Calcium 8.1 mg/dL (8.6-10.3); Potassium 3.9 mEq/L (3.5-5.1)
[2020-03-03] MEDS: *HR* Heparin 5,000 UNIT/ML VIAL SQ SCH (05:35)
[2020-03-03 07:32] VITALS: BP 113/65
[2020-03-03] MEDS ORDERED: Doxycycline 100 MG CAPSULE PO SCH (09:00)
[2020-03-03] MEDS ORDERED: Cefdinir 300 MG CAPSULE PO SCH (09:00)
[2020-03-03] MEDS: Aspirin Enteric Coated 81 MG Tablet PO SCH (09:56)
[2020-03-03] MEDS: Chlorhexidine Rinse 15 ML MOUTHWASH MM SCH (09:56)
[2020-03-03] MEDS: Furosemide 40 MG TABLET PO SCH (09:56)
[2020-03-03] MEDS: Nystatin POWDER 30 GM BOTTLE TP SCH (09:57)
== END 2020-03-03 12:29 | disposition home health service (06) | DRG 871 ==
LOC: 3BNU 20:13 → EMEROOARM 20:13 → 3BNU 02-25 00:37 → SUATTDRO 02-26 14:52 → 3ANU 02-28 15:20
PROVIDERS: ADMIT Family Medicine; ATTEND Family Medicine

== ENCOUNTER 2020-03-14 19:33 | Inpatient (IN) ==
[2020-03-14] MEDS ORDERED: 0.9 % Sodium Chloride 1,000 ML IVC STA (19:50)
[2020-03-14 20:00] LABS: Basophils % 0.1 %; Eosinophils % 0.1 %; Hematocrit 36.3 % (35.3-44.9); Hemoglobin 11.6 g/dL (11.5-15.4); Immature Granulocytes % 0.9 % (0-4); Immature Platelets 4.5 % (1.1-6.1); Lymphocytes # 0.4 K/mcL (0.6-4.6); Lymphocytes % 2.6 %; Mean Corpuscular Hemoglobin 29.7 pg (28.0-33.3); Mean Corpuscular Volume 93.1 fL (83.0-100.0); Mean Platelet Volume 11.2 fL (9.4-12.4); Monocytes # 0.6 K/mcL (0.0-1.3); Monocytes % 4.1 %; Neutrophils # 12.8 K/mcL (1.6-8.9); Red Cell Distribution Width 14.7 % (11.5-14.5); Segmented Neutrophils % 92.2 %; White Blood Count 13.9 K/mcL (4.3-11.1)
[2020-03-14 20:01] LABS: Platelet Count 66 K/mcL (140-400)
[2020-03-14 20:04] LABS: INR 1.3; Prothrombin Time 14.6 Seconds (9.4-12.1)
[2020-03-14 20:07] LABS: Activated Partial Thrombo Time 33.8 Seconds (26.0-36.0)
[2020-03-14 20:21] LABS: Albumin 3.4 g/dL (3.5-5.7); Albumin/Globulin Ratio 0.9 (1.1-2.2); Bilirubin,Direct 0.6 mg/dL (0.0-0.2); Bilirubin,Indirect 1.1 mg/dL (0.0-1.0); Bilirubin,Total 1.7 mg/dL (0.3-1.0); Calcium 8.5 mg/dL (8.6-10.3); Globulin 3.9 g/dL (2.4-3.5); Magnesium 1.5 mg/dL (1.6-2.6); Phosphorous 2.2 mg/dL (2.7-4.5); Potassium 3.5 mEq/L (3.5-5.1); Total Protein 7.3 g/dL (6.4-8.9); Troponin I 0.03 ng/mL (< 0.04)
[2020-03-14 20:44] LABS: Bacteria,Urine Few per hpf (None-Few); Bilirubin,Urine Negative (Negative); Blood,Urine Moderate (Negative); Clarity,Urine Turbid (Clear); Color,Urine Yellow (Yellow); Glucose,Urine (UA) Normal (Normal); Ketones,Urine Negative (Negative); Leukocyte Esterase,Urine Large (Negative); Mucus,Urine Few per lpf (None-Few); Nitrite,Urine Positive (Negative); Protein,Urine 30 mg/dL (Neg-Trace); RBC,Urine 15-30 per hpf (0-3); Specific Gravity,Urine 1.016 (1.010-1.025); Squamous Epithelial Cell,Urine Few per hpf (None-Few); Urobilinogen,Urine Normal (Normal); WBC,Urine TNTC per hpf (0-3)
[2020-03-14] MEDS ORDERED: Piperacillin/Tazobactam 3.375 GM in 0.9 % Sodium Chloride Mini Bag 100 ML IVPB ONE (20:44)
[2020-03-14] MEDS ORDERED: Vancomycin 1,750 MG/517.5 ML IV.SOLN IVPB STA (20:44)
[2020-03-14 21:39] LABS: Adenovirus Not Detected (Not Detect); Bordetella Pertussis Not Detected (Not Detect); Chlamydophila pneumoniae Not Detected (Not Detect); Coronavirus 229E Not Detected (Not Detect); Coronavirus HKU1 Not Detected (Not Detect); Coronavirus NL63 Not Detected (Not Detect); Coronavirus OC43 Not Detected (Not Detect); Human Metapneumovirus Not Detected (Not Detect); Human Rhinovirus/Enterovirus Not Detected (Not Detect); Influenza A Subtype 2009 H1 Not Detected (Not Detect); Influenza B Not Detected (Not Detect); Mycoplasma pneumoniae Not Detected (Not Detect); Parainfluenza Virus 1 Not Detected (Not Detect); Parainfluenza Virus 2 Not Detected (Not Detect); Parainfluenza Virus 3 Not Detected (Not Detect); Parainfluenza Virus 4 Not Detected (Not Detect); Respiratory Syncytial Virus Not Detected (Not Detect)
[2020-03-14] MEDS ORDERED: Naloxone 0.4 MG/ML INJ IVP PRN (22:42)
[2020-03-14] MEDS ORDERED: Vancomycin 1,750 MG in 0.9 % Sodium Chloride 250 ML IVPB SCH (23:00)
[2020-03-14] MEDS: 0.9 % Sodium Chloride 1,000 ML IVC SCH (23:40)
[2020-03-15] MEDS ORDERED: Magnesium Oxide 400 MG TABLET PO ONE (00:11)
[2020-03-15 00:42] LABS: Mean Corpuscular Volume 94.9 fL (83.0-100.0); Red Cell Distribution Width 14.6 % (11.5-14.5)
[2020-03-15 00:44] LABS: Basophils % 0.1 %; Hematocrit 33.7 % (35.3-44.9); Hemoglobin 11.1 g/dL (11.5-15.4); INR 1.3; Immature Granulocytes % 1.6 % (0-4); Lymphocytes # 0.6 K/mcL (0.6-4.6); Lymphocytes % 3.6 %; Mean Corpuscular HGB Conc 32.9 g/dL (31.6-35.5); Mean Corpuscular Hemoglobin 31.3 pg (28.0-33.3); Mean Platelet Volume 11.2 fL (9.4-12.4); Monocytes # 0.5 K/mcL (0.0-1.3); Monocytes % 3.4 %; Red Blood Count 3.55 M/mcL (3.82-4.97); Segmented Neutrophils % 91.3 %; White Blood Count 15.5 K/mcL (4.3-11.1)
[2020-03-15 00:46] LABS: Neutrophils # 14.2 K/mcL (1.6-8.9); Platelet Count 62 K/mcL (140-400)
[2020-03-15 00:56] LABS: Albumin/Globulin Ratio 0.8 (1.1-2.2); Calcium 8.2 mg/dL (8.6-10.3); Globulin 3.6 g/dL (2.4-3.5); Magnesium 1.5 mg/dL (1.6-2.6); Phosphorous 2.9 mg/dL (2.7-4.5); Potassium 3.5 mEq/L (3.5-5.1); Total Protein 6.6 g/dL (6.4-8.9)
[2020-03-15] MEDS: *HR* Promethazine 25 MG/ML VIAL IVP PRN ×2 (02:12→07:50)
[2020-03-15] MEDS: *HR* Heparin 5,000 UNIT/ML VIAL SQ SCH ×3 (05:22→20:43)
[2020-03-15 07:46] LABS: Estimated Average Glucose 108 mg/dl
[2020-03-15] MEDS: Piperacillin/Tazobactam 3.375 GM in 0.9 % Sodium Chloride Mini Bag 100 ML IVPB SCH ×2 (07:48→16:52)
[2020-03-15] MEDS: 0.9 % Sodium Chloride 1,000 ML IVC SCH (07:49)
[2020-03-15] MEDS ORDERED: Ipratropium/Albuterol Neb 3 ML IH PRN (12:08)
[2020-03-15] MEDS: Acetaminophen 325 MG TABLET PO PRN ×2 (12:29→20:43)
[2020-03-15] MEDS: Vancomycin 1,500 MG/265 ML IV.SOLN IVPB SCH (12:30)
[2020-03-15] MEDS ORDERED: Vancomycin 1,500 MG/265 ML IV.SOLN IVPB SCH (21:00)
[2020-03-16] MEDS: Piperacillin/Tazobactam 3.375 GM in 0.9 % Sodium Chloride Mini Bag 100 ML IVPB SCH ×3 (00:13→16:04)
[2020-03-16] MEDS: *HR* Heparin 5,000 UNIT/ML VIAL SQ SCH (05:15)
[2020-03-16] MEDS: Acetaminophen 325 MG TABLET PO PRN ×2 (05:15→16:05)
[2020-03-16 07:33] LABS: Basophils % 0.1 %; Hemoglobin 9.7 g/dL (11.5-15.4); Immature Granulocytes % 0.4 % (0-4)
[2020-03-16 07:35] LABS: Eosinophils # 0.3 K/mcL (0.0-0.6); Eosinophils % 3.6 %; Hematocrit 30.7 % (35.3-44.9); Immature Platelets 5.7 % (1.1-6.1); Lymphocytes # 0.9 K/mcL (0.6-4.6); Lymphocytes % 12.7 %; Mean Corpuscular HGB Conc 31.6 g/dL (31.6-35.5); Mean Corpuscular Hemoglobin 29.8 pg (28.0-33.3); Mean Corpuscular Volume 94.5 fL (83.0-100.0); Mean Platelet Volume 12.6 fL (9.4-12.4); Monocytes % 6.1 %; Neutrophils # 5.6 K/mcL (1.6-8.9); Red Blood Count 3.25 M/mcL (3.82-4.97); Red Cell Distribution Width 14.8 % (11.5-14.5); Segmented Neutrophils % 77.1 %; White Blood Count 7.3 K/mcL (4.3-11.1)
[2020-03-16 07:41] LABS: Monocytes # 0.5 K/mcL (0.0-1.3); Platelet Count 45 K/mcL (140-400)
[2020-03-16 07:50] LABS: Calcium 7.1 mg/dL (8.6-10.3); Potassium 3.4 mEq/L (3.5-5.1)
[2020-03-16] MEDS: 0.9 % Sodium Chloride w KCl 40 MEQ/1,000 ML MLS IVC SCH (11:40)
[2020-03-16] MEDS: Vancomycin 1,500 MG/265 ML IV.SOLN IVPB SCH (11:49)
[2020-03-16] MEDS ORDERED: Nystatin POWDER 30 GM BOTTLE TP PRN (14:38)
[2020-03-16] MEDS: Miconazole 2% ointment 141 APPL/141 GM TUBE TP PRN (18:36)
[2020-03-16 19:12] LABS: Calcium 7.1 mg/dL (8.6-10.3); Potassium 3.9 mEq/L (3.5-5.1)
[2020-03-17] MEDS: Piperacillin/Tazobactam 3.375 GM in 0.9 % Sodium Chloride Mini Bag 100 ML IVPB SCH ×4 (00:30→23:37)
[2020-03-17] MEDS: *HR* Promethazine 25 MG/ML VIAL IVP PRN (00:37)
[2020-03-17] MEDS: 0.9 % Sodium Chloride w KCl 40 MEQ/1,000 ML MLS IVC SCH ×3 (00:38→23:36)
[2020-03-17] MEDS: Miconazole 2% ointment 141 APPL/141 GM TUBE TP PRN ×2 (04:20→21:55)
[2020-03-17 06:04] LABS: Adenovirus F 40/41 PCR Not detected (Not detect); Astrovirus PCR Not detected (Not detect); C.difficile Toxin A/B Gene PCR Not detected (Not detect); Campylobacter by PCR Not detected (Not detect); Cryptosporidium by PCR Not detected (Not detect); Cyclospora cayetanensis PCR Not detected (Not detect); E. coli O157 by PCR Not detected (Not detect); Entamoeba histolytica PCR Not detected (Not detect); Enteroaggregative E.coli(EAEC) Not detected (Not detect); Enteropathogenic E.coli(EPEC) Not detected (Not detect); Enterotoxigenic E.coli (ETEC) Not detected (Not detect); Giardia lamblia PCR Not detected (Not detect); Norovirus GI/GII PCR Not detected (Not detect); Plesiomonas shigelloides PCR Not detected (Not detect); Rotavirus A PCR Not detected (Not detect); Salmonella PCR Not detected (Not detect); Sapovirus PCR Not detected (Not detect); Shig/EnteroinvasiveE coli EIEC Not detected (Not detect); Shigalike tox-prod E coli STEC Not detected (Not detect); Vibrio PCR Not detected (Not detect); Vibrio cholerae PCR Not detected (Not detect); Yersinia enterocolitica PCR Not detected (Not detect)
[2020-03-17] MEDS ORDERED: Calcium Gluconate 1gm/50mL 1 GM/50 ML BAG IVPB ONE (07:22)
[2020-03-17] MEDS: Lactobacillus 1 EACH CAP.SPRINK PO SCH ×2 (08:34→21:53)
[2020-03-17] MEDS: Aspirin Enteric Coated 81 MG Tablet PO SCH (08:34)
[2020-03-17] MEDS: Vancomycin 1,500 MG/265 ML IV.SOLN IVPB SCH (08:35)
[2020-03-17 10:59] LABS: Mean Corpuscular Volume 95.4 fL (83.0-100.0)
[2020-03-17 11:00] LABS: Hemoglobin 9.8 g/dL (11.5-15.4); Immature Platelets 4.4 % (1.1-6.1); Mean Corpuscular HGB Conc 31.6 g/dL (31.6-35.5); Mean Corpuscular Hemoglobin 30.2 pg (28.0-33.3); Mean Platelet Volume 11.4 fL (9.4-12.4); Red Blood Count 3.25 M/mcL (3.82-4.97); Red Cell Distribution Width 15.1 % (11.5-14.5); White Blood Count 4.9 K/mcL (4.3-11.1)
[2020-03-17 11:17] LABS: Albumin 2.5 g/dL (3.5-5.7); Albumin/Globulin Ratio 0.8 (1.1-2.2); Bilirubin,Total 0.5 mg/dL (0.3-1.0); Calcium 7.4 mg/dL (8.6-10.3); Globulin 3.2 g/dL (2.4-3.5); Magnesium 1.7 mg/dL (1.6-2.6); Total Protein 5.7 g/dL (6.4-8.9)
[2020-03-17] MEDS: *HR* HYDROcodone/Acet 5/325 mg TABLET PO PRN ×2 (12:31→21:53)
[2020-03-18 03:59] LABS: Hemoglobin 9.7 g/dL (11.5-15.4); Immature Granulocytes % 0.2 % (0-4)
[2020-03-18 04:01] LABS: Basophils % 0.5 %; Eosinophils # 0.4 K/mcL (0.0-0.6); Eosinophils % 8.1 %; Immature Platelets 3.4 % (1.1-6.1); Lymphocytes # 1.2 K/mcL (0.6-4.6); Lymphocytes % 27.8 %; Mean Corpuscular HGB Conc 31.3 g/dL (31.6-35.5); Mean Corpuscular Hemoglobin 30.7 pg (28.0-33.3); Mean Corpuscular Volume 98.1 fL (83.0-100.0); Mean Platelet Volume 11.4 fL (9.4-12.4); Monocytes # 0.3 K/mcL (0.0-1.3); Monocytes % 7.4 %; Neutrophils # 2.4 K/mcL (1.6-8.9); Red Blood Count 3.16 M/mcL (3.82-4.97); Red Cell Distribution Width 14.8 % (11.5-14.5); White Blood Count 4.3 K/mcL (4.3-11.1)
[2020-03-18 04:08] LABS: Calcium 7.7 mg/dL (8.6-10.3); Magnesium 1.6 mg/dL (1.6-2.6)
[2020-03-18 04:37] LABS: Platelet Count 54 K/mcL (140-400)
[2020-03-18] MEDS: Piperacillin/Tazobactam 3.375 GM in 0.9 % Sodium Chloride Mini Bag 100 ML IVPB SCH ×2 (08:15→15:08)
[2020-03-18] MEDS: Lactobacillus 1 EACH CAP.SPRINK PO SCH ×2 (08:18→20:17)
[2020-03-18] MEDS: Aspirin Enteric Coated 81 MG Tablet PO SCH (08:18)
[2020-03-18] MEDS: Vancomycin 1,500 MG/265 ML IV.SOLN IVPB SCH (08:18)
[2020-03-18] MEDS: *HR* HYDROcodone/Acet 5/325 mg TABLET PO PRN ×2 (08:19→20:16)
[2020-03-18] MEDS: 0.9 % Sodium Chloride 1,000 ML IVC SCH (12:11)
[2020-03-19] MEDS: Piperacillin/Tazobactam 3.375 GM in 0.9 % Sodium Chloride Mini Bag 100 ML IVPB SCH ×3 (01:01→15:33)
[2020-03-19] MEDS: 0.9 % Sodium Chloride 1,000 ML IVC SCH (03:13)
[2020-03-19 03:26] LABS: Mean Corpuscular Volume 95.7 fL (83.0-100.0)
[2020-03-19 03:28] LABS: Basophils % 0.2 %; Eosinophils # 0.4 K/mcL (0.0-0.6); Eosinophils % 10.5 %; Hematocrit 31.2 % (35.3-44.9); Hemoglobin 9.7 g/dL (11.5-15.4); Immature Granulocytes % 0.2 % (0-4); Immature Platelets 3.7 % (1.1-6.1); Lymphocytes # 1.2 K/mcL (0.6-4.6); Lymphocytes % 30.1 %; Mean Corpuscular HGB Conc 31.1 g/dL (31.6-35.5); Mean Corpuscular Hemoglobin 29.8 pg (28.0-33.3); Mean Platelet Volume 11.4 fL (9.4-12.4); Monocytes # 0.3 K/mcL (0.0-1.3); Monocytes % 7.4 %; Neutrophils # 2.1 K/mcL (1.6-8.9); Red Blood Count 3.26 M/mcL (3.82-4.97); Segmented Neutrophils % 51.6 %; White Blood Count 4.1 K/mcL (4.3-11.1)
[2020-03-19 03:38] LABS: Platelet Count 57 K/mcL (140-400)
[2020-03-19 03:46] LABS: Calcium 7.8 mg/dL (8.6-10.3); Magnesium 1.6 mg/dL (1.6-2.6); Potassium 4.2 mEq/L (3.5-5.1)
[2020-03-19] MEDS: *HR* HYDROcodone/Acet 5/325 mg TABLET PO PRN ×2 (06:13→15:34)
[2020-03-19] MEDS: Vancomycin 1,500 MG/265 ML IV.SOLN IVPB SCH (08:27)
[2020-03-19] MEDS: Aspirin Enteric Coated 81 MG Tablet PO SCH (08:27)
[2020-03-19] MEDS: Lactobacillus 1 EACH CAP.SPRINK PO SCH ×2 (08:27→21:16)
[2020-03-20] MEDS: Piperacillin/Tazobactam 3.375 GM in 0.9 % Sodium Chloride Mini Bag 100 ML IVPB SCH ×3 (00:38→15:19)
[2020-03-20] MEDS: *HR* Promethazine 25 MG/ML VIAL IVP PRN (02:17)
[2020-03-20 02:42] LABS: Immature Granulocytes % 0.4 % (0-4)
[2020-03-20 02:44] LABS: Basophils % 0.4 %; Eosinophils # 0.6 K/mcL (0.0-0.6); Eosinophils % 11.9 %; Hematocrit 31.2 % (35.3-44.9); Immature Platelets 3.9 % (1.1-6.1); Lymphocytes # 1.3 K/mcL (0.6-4.6); Lymphocytes % 28.3 %; Mean Corpuscular HGB Conc 32.1 g/dL (31.6-35.5); Mean Corpuscular Hemoglobin 30.3 pg (28.0-33.3); Mean Corpuscular Volume 94.5 fL (83.0-100.0); Mean Platelet Volume 11.3 fL (9.4-12.4); Monocytes # 0.4 K/mcL (0.0-1.3); Monocytes % 7.6 %; Neutrophils # 2.4 K/mcL (1.6-8.9); Red Cell Distribution Width 14.9 % (11.5-14.5); Segmented Neutrophils % 51.4 %; White Blood Count 4.6 K/mcL (4.3-11.1)
[2020-03-20 02:50] LABS: Platelet Count 67 K/mcL (140-400)
[2020-03-20 03:01] LABS: BUN/Creatinine Ratio 15 (6-26); Blood Urea Nitrogen 16 mg/dL (8-23); Calcium 7.9 mg/dL (8.6-10.3); Carbon Dioxide 23 mEq/L (23-29); Chloride 112 mEq/L (98-107); Glucose 114 mg/dL (70-105); Osmolality,Calculated 290 (280-300); Potassium 4.1 mEq/L (3.5-5.1); Sodium 139 mEq/L (136-145); eGFR For African Americans > 60 (> 60); eGFR For Non-African Americans 50 (> 60)
[2020-03-20] MEDS: Aspirin Enteric Coated 81 MG Tablet PO SCH (09:26)
[2020-03-20] MEDS: Vancomycin 1,500 MG/265 ML IV.SOLN IVPB SCH (09:26)
[2020-03-20] MEDS: Lactobacillus 1 EACH CAP.SPRINK PO SCH ×2 (09:26→22:26)
[2020-03-21] MEDS: Piperacillin/Tazobactam 3.375 GM in 0.9 % Sodium Chloride Mini Bag 100 ML IVPB SCH ×2 (00:51→08:00)
[2020-03-21] MEDS: *HR* Promethazine 25 MG/ML VIAL IVP PRN (05:07)
[2020-03-21 05:45] LABS: BUN/Creatinine Ratio 16 (6-26); Blood Urea Nitrogen 16 mg/dL (8-23); Carbon Dioxide 24 mEq/L (23-29); Chloride 110 mEq/L (98-107); Glucose 112 mg/dL (70-105); Osmolality,Calculated 288 (280-300); Sodium 138 mEq/L (136-145); eGFR For African Americans > 60 (> 60); eGFR For Non-African Americans 56 (> 60)
[2020-03-21] MEDS: *HR* HYDROcodone/Acet 5/325 mg TABLET PO PRN (06:27)
[2020-03-21] MEDS: Lactobacillus 1 EACH CAP.SPRINK PO SCH (08:01)
[2020-03-21] MEDS: Aspirin Enteric Coated 81 MG Tablet PO SCH (08:01)
[2020-03-21] MEDS: Vancomycin 1,500 MG/265 ML IV.SOLN IVPB SCH (08:03)
[2020-03-21] MEDS ORDERED: Doxycycline 100 MG CAPSULE PO SCH (09:00)
[2020-03-21 10:36] VITALS: BP 134/68
== END 2020-03-21 12:27 | disposition home health service (06) | DRG 871 ==
LOC: 3BNU 19:33 → EMEROOARM 19:33 → SUATTDRO 22:05 → 3BNU 22:29 → SUATTDRO 03-15 12:43 → 2ANU 03-15 13:48
PROVIDERS: ADMIT Internal Medicine; ATTEND Internal Medicine

== ENCOUNTER 2021-10-02 03:21 | Inpatient (IN) ==
[2021-10-02 05:08] LABS: Basophils % 0.3 %; Mean Corpuscular HGB Conc 33.3 g/dL (31.6-35.5)
[2021-10-02 05:09] LABS: Hematocrit 41.2 % (35.3-44.9); Hemoglobin 13.7 g/dL (11.5-15.4); Immature Platelets 6.7 % (1.1-6.1); Lymphocytes # 0.6 K/mcL (0.6-4.6); Lymphocytes % 18.6 %; Mean Corpuscular Volume 87.1 fL (83.0-100.0); Mean Platelet Volume 11.1 fL (9.4-12.4); Monocytes # 0.2 K/mcL (0.0-1.3); Monocytes % 7.4 %; Neutrophils # 2.2 K/mcL (1.6-8.9); Red Blood Count 4.73 M/mcL (3.82-4.97); Segmented Neutrophils % 72.7 %
[2021-10-02 05:21] LABS: Influenza A PCR Negative (Negative); Influenza B PCR Negative (Negative); Resp. Syncytial Virus PCR Negative (Negative)
[2021-10-02 05:21] LABS: Alanine Aminotransferase 22 Units/L (7-52); Albumin 3.5 g/dL (3.5-5.7); Alkaline Phosphatase 70 Units/L (34-104); Aspartate Amino Transferase 42 Units/L (13-39); BUN/Creatinine Ratio 20 (6-26); Bilirubin,Total 0.9 mg/dL (0.3-1.0); Blood Urea Nitrogen 18 mg/dL (8-23); Calcium 7.9 mg/dL (8.6-10.3); Carbon Dioxide 23 mEq/L (23-29); Chloride 104 mEq/L (98-107); Globulin 3.5 g/dL (2.4-3.5); Glucose 123 mg/dL (70-105); Lipase 94 Units/L (11-82); Osmolality,Calculated 283 (280-300); Potassium 4.1 mEq/L (3.5-5.1); Sodium 135 mEq/L (136-145); Troponin I 0.03 ng/mL (< 0.04); eGFR For African Americans > 60 (> 60); eGFR For Non-African Americans > 60 (> 60)
[2021-10-02 05:26] LABS: SARS-CoV-2 by PCR (In House) Positive (Negative)
[2021-10-02 05:28] LABS: Platelet Count 63 K/mcL (140-400)
[2021-10-02 05:41] LABS: Bilirubin,Urine Negative (Negative); Blood,Urine Large (Negative); Clarity,Urine Ex.Turbid (Clear); Color,Urine Dark-Yellow (Yellow); Glucose,Urine (UA) Normal (Normal); Ketones,Urine Trace mg/dL (Negative); Leukocyte Esterase,Urine Large (Negative); Nitrite,Urine Positive (Negative); PH,Urine 6.5 pH Units (5.0-8.0); Protein,Urine 200 mg/dL (Neg-Trace); Specific Gravity,Urine 1.021 (1.010-1.025)
[2021-10-02 05:42] LABS: Bacteria,Urine Many per hpf (None-Few); Mucus,Urine Present per lpf (None-Few); RBC,Urine TNTC per hpf (0-3); Squamous Epithelial Cell,Urine Present per hpf (None-Few); WBC,Urine TNTC per hpf (0-3)
[2021-10-02] MEDS ORDERED: Isovue-370 500 ML BOTTLE IVP ONE (05:42)
[2021-10-02 05:43] LABS: Hyaline Casts,Urine None Seen per lpf (None Seen)
[2021-10-02] MEDS ORDERED: cefTRIAXone 1,000 MG in 0.9 % Sodium Chloride Mini Bag 100 ML IVPB ONE (07:58)
[2021-10-02] MEDS ORDERED: Ondansetron 4 MG/2 ML VIAL IVP PRN (09:18)
[2021-10-02] MEDS ORDERED: Naloxone 0.4 MG/ML INJ IVP PRN (09:18)
[2021-10-02] MEDS: *HR* Heparin 5,000 UNIT/ML VIAL SQ SCH ×2 (17:09→22:30)
[2021-10-02] MEDS ORDERED: *HR* HYDROcodone/Acet 10/325 mg TABLET PO ONE (22:44)
[2021-10-03] MEDS: *HR* Heparin 5,000 UNIT/ML VIAL SQ SCH ×3 (05:33→21:23)
[2021-10-03] MEDS ORDERED: Doxycycline 100 MG in 0.9 % Sodium Chloride Mini Bag 100 ML IVPB SCH ×2 (06:00→18:00)
[2021-10-03] MEDS ORDERED: Albuterol 2.5 MG/3 ML NEBULIZER IH ONE (06:55)
[2021-10-03 07:04] LABS: BUN/Creatinine Ratio 21 (6-26); Blood Urea Nitrogen 20 mg/dL (8-23); Calcium 7.9 mg/dL (8.6-10.3); Carbon Dioxide 23 mEq/L (23-29); Chloride 104 mEq/L (98-107); Glucose 124 mg/dL (70-105); Osmolality,Calculated 284 (280-300); Potassium 3.8 mEq/L (3.5-5.1); Sodium 135 mEq/L (136-145); eGFR For African Americans > 60 (> 60); eGFR For Non-African Americans 57 (> 60)
[2021-10-03] MEDS ORDERED: *HR* Propofol 200 MG/20 ML VIAL IVP ONE (07:08)
[2021-10-03] MEDS ORDERED: *HR* Succinylcholine 200 MG/10 ML VIAL IVP ONE (07:08)
[2021-10-03] MEDS ORDERED: *HR* FentaNYL (PF) 100 MCG/2 ML VIAL ONE (07:08)
[2021-10-03] MEDS ORDERED: Lidocaine -MPF 2% 5 ML VIAL ONE (07:08)
[2021-10-03] MEDS ORDERED: Lidocaine -MPF 4% 5 ML AMPUL ONE (07:08)
[2021-10-03] MEDS ORDERED: Ondansetron 4 MG/2 ML VIAL ONE (07:08)
[2021-10-03] MEDS ORDERED: *HR* Rocuronium Bromide 50 MG/5 ML VIAL ONE (07:08)
[2021-10-03 07:20] LABS: Hematocrit 36.9 % (35.3-44.9); Hemoglobin 12.1 g/dL (11.5-15.4); Immature Platelets 7.7 % (1.1-6.1); Mean Corpuscular HGB Conc 32.8 g/dL (31.6-35.5); Mean Corpuscular Hemoglobin 28.7 pg (28.0-33.3); Mean Corpuscular Volume 87.4 fL (83.0-100.0); Mean Platelet Volume 12.2 fL (9.4-12.4); Red Blood Count 4.22 M/mcL (3.82-4.97); Red Cell Distribution Width 14.1 % (11.5-14.5); White Blood Count 2.7 K/mcL (4.3-11.1)
[2021-10-03] MEDS ORDERED: Ipratropium/Albuterol Neb 3 ML IH ONE (07:20)
[2021-10-03] MEDS ORDERED: Isovue-300 50ML VIAL ONE (07:29)
[2021-10-03] MEDS: Furosemide 40 MG TABLET PO SCH ×2 (07:49→08:07)
[2021-10-03] MEDS: Aspirin Enteric Coated 81 MG Tablet PO SCH ×2 (07:49→08:07)
[2021-10-03] MEDS ORDERED: Ipratropium 1 PUFF INHALER IH SCH (08:00)
[2021-10-03] MEDS ORDERED: EPHEDrine 50 MG/ML VIAL ONE (08:24)
[2021-10-03] MEDS ORDERED: Lacri-Lube 3.5 GM TUBE ONE (08:39)
[2021-10-03] MEDS ORDERED: cefTRIAXone 1,000 MG in 0.9 % Sodium Chloride 10 ML IVP SCH (09:00)
[2021-10-03] MEDS ORDERED: Naloxone 0.4 MG/ML INJ IVP PRN (09:22)
[2021-10-03] MEDS: Ertapenem 1,000 MG in 0.9 % Sodium Chloride Mini Bag 100 ML IVPB SCH (12:24)
[2021-10-03] MEDS ORDERED: Piperacillin/Tazobactam 3.375 GM in 0.9 % Sodium Chloride Mini Bag 100 ML IVPB SCH (16:00)
[2021-10-03] MEDS: *HR* HYDROcodone/Acet 5/325 mg TABLET PO PRN (21:46)
[2021-10-04] MEDS: *HR* Heparin 5,000 UNIT/ML VIAL SQ SCH ×3 (06:08→21:02)
[2021-10-04] MEDS: Furosemide 40 MG TABLET PO SCH (08:54)
[2021-10-04] MEDS: Aspirin Enteric Coated 81 MG Tablet PO SCH (08:54)
[2021-10-04] MEDS: Ertapenem 1,000 MG in 0.9 % Sodium Chloride Mini Bag 100 ML IVPB SCH (08:54)
[2021-10-04] MEDS ORDERED: cefTRIAXone 1,000 MG in 0.9 % Sodium Chloride 10 ML IVP SCH (09:00)
[2021-10-04] MEDS ORDERED: Furosemide 20 MG/2 ML VIAL IVP ONE (14:51)
[2021-10-04] MEDS: Ipratropium/Albuterol Neb 3 ML IH SCH ×2 (16:37→20:23)
[2021-10-04] MEDS: *HR* HYDROcodone/Acet 5/325 mg TABLET PO PRN (21:46)
[2021-10-04] MEDS: Ipratropium 1 PUFF INHALER IH SCH (22:39)
[2021-10-05] MEDS: Ipratropium 1 PUFF INHALER IH SCH ×4 (03:56→20:11)
[2021-10-05] MEDS: *HR* Heparin 5,000 UNIT/ML VIAL SQ SCH ×3 (06:03→20:31)
[2021-10-05 06:39] LABS: Basophils % 0.3 %
[2021-10-05 06:41] LABS: Hematocrit 38.2 % (35.3-44.9); Immature Granulocytes % 0.8 % (0-4); Immature Platelets 6.4 % (1.1-6.1); Lymphocytes # 0.7 K/mcL (0.6-4.6); Lymphocytes % 19.2 %; Mean Corpuscular Hemoglobin 29.3 pg (28.0-33.3); Mean Platelet Volume 11.7 fL (9.4-12.4); Monocytes # 0.3 K/mcL (0.0-1.3); Monocytes % 8.8 %; Neutrophils # 2.6 K/mcL (1.6-8.9); Red Blood Count 4.44 M/mcL (3.82-4.97); Red Cell Distribution Width 13.7 % (11.5-14.5); Segmented Neutrophils % 70.9 %; White Blood Count 3.7 K/mcL (4.3-11.1)
[2021-10-05 06:50] LABS: Platelet Count 81 K/mcL (140-400)
[2021-10-05 06:57] LABS: BUN/Creatinine Ratio 32 (6-26); Blood Urea Nitrogen 28 mg/dL (8-23); Calcium 8.2 mg/dL (8.6-10.3); Carbon Dioxide 25 mEq/L (23-29); Chloride 107 mEq/L (98-107); Glucose 137 mg/dL (70-105); Osmolality,Calculated 300 (280-300); Potassium 3.9 mEq/L (3.5-5.1); Sodium 141 mEq/L (136-145); eGFR For African Americans > 60 (> 60); eGFR For Non-African Americans > 60 (> 60)
[2021-10-05] MEDS: Furosemide 40 MG TABLET PO SCH (08:36)
[2021-10-05] MEDS: Ertapenem 1,000 MG in 0.9 % Sodium Chloride Mini Bag 100 ML IVPB SCH (08:37)
[2021-10-05] MEDS: Aspirin Enteric Coated 81 MG Tablet PO SCH (08:37)
[2021-10-05] MEDS ORDERED: Fosfomycin Tromethamine 3 GM Packet PO ONE (17:00)
[2021-10-05] MEDS: Ondansetron 4 MG/2 ML VIAL IVP PRN (18:04)
[2021-10-06 02:10] LABS: Basophils % 0.5 %; Immature Granulocytes % 0.5 % (0-4); Red Cell Distribution Width 13.8 % (11.5-14.5)
[2021-10-06 02:12] LABS: Eosinophils % 0.2 %; Hematocrit 39.7 % (35.3-44.9); Hemoglobin 13.1 g/dL (11.5-15.4); Immature Platelets 5.5 % (1.1-6.1); Lymphocytes # 1.1 K/mcL (0.6-4.6); Lymphocytes % 27.3 %; Mean Corpuscular Hemoglobin 28.7 pg (28.0-33.3); Mean Corpuscular Volume 87.1 fL (83.0-100.0); Mean Platelet Volume 12.1 fL (9.4-12.4); Monocytes # 0.4 K/mcL (0.0-1.3); Monocytes % 9.3 %; Neutrophils # 2.6 K/mcL (1.6-8.9); Red Blood Count 4.56 M/mcL (3.82-4.97); Segmented Neutrophils % 62.2 %; White Blood Count 4.1 K/mcL (4.3-11.1)
[2021-10-06 02:14] LABS: Platelet Count 85 K/mcL (140-400)
[2021-10-06 02:27] LABS: BUN/Creatinine Ratio 33 (6-26); Blood Urea Nitrogen 27 mg/dL (8-23); Calcium 8.1 mg/dL (8.6-10.3); Carbon Dioxide 25 mEq/L (23-29); Chloride 108 mEq/L (98-107); Glucose 124 mg/dL (70-105); Osmolality,Calculated 301 (280-300); Potassium 3.7 mEq/L (3.5-5.1); Sodium 142 mEq/L (136-145); eGFR For African Americans > 60 (> 60); eGFR For Non-African Americans > 60 (> 60)
[2021-10-06] MEDS: Ipratropium 1 PUFF INHALER IH SCH ×2 (03:53→08:09)
[2021-10-06] MEDS: *HR* Heparin 5,000 UNIT/ML VIAL SQ SCH ×3 (05:30→22:41)
[2021-10-06] MEDS: Ertapenem 1,000 MG in 0.9 % Sodium Chloride Mini Bag 100 ML IVPB SCH ×2 (10:02→12:11)
[2021-10-06] MEDS: Furosemide 40 MG TABLET PO SCH (10:02)
[2021-10-06] MEDS: Aspirin Enteric Coated 81 MG Tablet PO SCH (10:02)
[2021-10-06] MEDS ORDERED: Ipratropium 1 PUFF INHALER IH PRN (14:09)
[2021-10-06] MEDS: *HR* HYDROcodone/Acet 5/325 mg TABLET PO PRN (18:26)
[2021-10-07] MEDS: Ondansetron 4 MG/2 ML VIAL IVP PRN ×2 (03:24→11:50)
[2021-10-07] MEDS: *HR* Heparin 5,000 UNIT/ML VIAL SQ SCH ×3 (05:46→21:35)
[2021-10-07] MEDS: Furosemide 40 MG TABLET PO SCH (10:15)
[2021-10-07] MEDS: Aspirin Enteric Coated 81 MG Tablet PO SCH (10:15)
[2021-10-07] MEDS: Ertapenem 1,000 MG in 0.9 % Sodium Chloride Mini Bag 100 ML IVPB SCH (11:50)
[2021-10-08] MEDS: *HR* Heparin 5,000 UNIT/ML VIAL SQ SCH ×2 (06:47→14:48)
[2021-10-08] MEDS: Furosemide 40 MG TABLET PO SCH (10:12)
[2021-10-08] MEDS: Aspirin Enteric Coated 81 MG Tablet PO SCH (10:13)
[2021-10-08] MEDS: Ertapenem 1,000 MG in 0.9 % Sodium Chloride Mini Bag 100 ML IVPB SCH (10:13)
[2021-10-08 10:27] VITALS: BP 116/69; PULSE 78; TEMP 98.3
[2021-10-08 14:47] VITALS: O2SAT 94
== END 2021-10-08 17:15 | disposition home health service (06) | DRG 853 ==
LOC: EMEROOARM 03:21 → 3ANU 03:21
PROVIDERS: ADMIT Internal Medicine; ATTEND Internal Medicine